=== PATIENT | female | born 1945 | race Caucasian/White ===

== ENCOUNTER 2016-05-04 19:38 | Inpatient (IN) | payer MEDICARE ==
[2016-05-04 21:45] LABS: Basophils # (A) 0.1 k/uL (0-0.2); Basophils % (A) 1 %; Eosinophils # (A) 0.3 k/uL (0-0.7); Eosinophils % (A) 2 %; HCT 34.1 % (34.0-46.0); HDW 2.63; HGB 11.6 gm/dL (11.4-16.0); Luc # (Auto) 0.33; Luc % (Auto) 2; Lymphocytes # (A) 3.1 k/uL (1.0-4.8); Lymphocytes % (A) 20 %; MCH 28.3 pg (25.0-35.0); Mean Platelet Volume 6.6; Monocytes % (A) 6 %; Neutrophils # (A) 11.1 k/uL (1.3-7.7); Neutrophils % (A) 70 %; RDW 13.8 % (11.5-15.5); WBC 15.8 k/uL (3.8-10.6); WBC (Perox) 15.88
[2016-05-04 21:49] LABS: MCV 83.2 fL (80.0-100.0)
[2016-05-04 21:57] LABS: Calcium 9.4 mg/dL (8.4-10.2); Potassium 4.5 mmol/L (3.5-5.1); Total Bilirubin 0.5 mg/dL (0.2-1.3); Total Protein 6.9 g/dL (6.3-8.2)
[2016-05-04] MEDS ORDERED: SODIUM CHLORIDE 0.9% 1,000 ML IV STA (22:16)
--- NOTE | 2016-05-04 22:41 | CT ---
EXAMINATION TYPE: CT brain mason wo con DATE OF EXAM: 05/04/2016 10:19 PM COMPARISON: CT brain March 24, 2016. HISTORY: fall , history of unsteady gait and balance. CT DLP: 1702.50 mGycm Automated exposure control for dose reduction was used. TECHNIQUE: CT scan of the head and cervical spine are performed without contrast. FINDINGS: CT BRAIN: There is no acute intracranial hemorrhage, mass effect, or midline shift identified. The cortical sul ci are prominent with age-related atrophic changes of brain. Ventricles are grossly normal in size. M ild periventricular white matter ischemic changes are noted bilaterally of chronic nature. The globes are intact and the visualized sinuses are clear. No definite depressed skull fracture or significant cephalohematoma is noted. Tiny calcification or b one density in the inner table area of right temporal bone in the axial image 20 is most likely a yoly ign bone projection and is stable since previous study. CT CERVICAL SPINE: Cervical spine is visualized in its entirety from C1 through upper thoracic levels and demonstrates s atisfactory alignment without evidence of acute fracture or dislocation. Prevertebral soft tissue ap pears within normal limits. The C1-C2 articulation is unremarkable. Mild degenerative arthritic keily nges are present with endplate spondylosis in the lower cervical spine especially at the level of C5- C6 and C6-C7. IMPRESSION: 1. No acute process in the brain. 2. Age-related atrophic changes of brain. 3. No definite acute fracture in the cervical spine. 4. Mild degenerative arthritic changes in the cervical spine.
--- NOTE | 2016-05-04 22:45 | CT ---
EXAMINATION TYPE: CT thoracic spine wo con DATE OF EXAM: 05/04/2016 10:22 PM COMPARISON: NONE HISTORY: fall CT DLP: 2416.10 mGycm Automated exposure control for dose reduction was used. FINDINGS: There is minor dextroscoliosis in the thoracic spine. There is increased thoracic kyphosis. The alignment of vertebral bodies and body heights are grossly normal. No definite acute fracture is noted in the thoracic spine. Multilevel degenerative changes are present in the thoracic spine with m ild endplate spondylosis. Paraspinal soft tissues appear unremarkable. Dependent atelectasis is noted in both lungs. IMPRESSION: NO DEFINITE ACUTE FRACTURE IS NOTED IN THE THORACIC SPINE. If clinical symptoms persist MRI scan may be helpful.
[2016-05-04] MEDS: MAGNESIUM SULFATE-D5W PMX 1 GM in DEXTROSE/WATER 1 100ML.BAG IVPB SCH ×2 (22:47→23:48)
[2016-05-04] MEDS ORDERED: cloNIDine HCL 0.1 MG TAB PO STA (23:25)
[2016-05-05] MEDS ORDERED: NALOXONE 0.4 MG/ML 1 ML VIAL IV PRN (00:09)
--- NOTE | 2016-05-05 00:09 | ED ---
General Adult HPI - General Chief complaint: Urogenital Stated complaint: unable to urinate Time Seen by Provider: 05/04/16 21:15 Source: patient Mode of arrival: wheelchair Limitations: no limitations - History of Present Illness Initial comments: The patient is a 70-year-old female who presents to the ED with a chief complaint of decreased urination. The patient states that these symptoms have been present over the course of the past 2-3 days. The patient states that she has a history of chronic dysphagia. Reviewing the patient's chart, it appears that the patient has a history of Zenker diverticulum. Patient notes that she' s been trying her best to maintain her diet but states that it often hard due to her chronic dysphagia. Patient states that she's largely on a liquid diet. The patient notes that she has been hospitalized multiple times in the past secondary to hyponatremia. Patient does note that she fell about 3 days ago, landing on the floor. Patient notes that she's had some pain in her upper thoracic spine following this fall. Patient denies any dizziness or lightheadedness. Patient denies any history of seizure. Patient's family states that the patient has been normal. The patient denies any fever or chills. Patient denies any nausea or vomiting. Patient denies any abdominal pain. - Related Data Home Medications Medication Instructions Recorded Confirmed Atenolol [Tenormin] 50 mg PO TID 03/11/16 05/04/16 Glimepiride [Amaryl] 0.5 mg PO BID@0800,1800 03/11/16 05/04/16 Lisinopril-Hctz 20-25 mg 1 tab PO DAILY@1800 03/11/16 05/04/16 [Zestoretic 20-25] Pioglitazone [Actos] 30 mg PO DAILY@0900 03/11/16 05/04/16 metFORMIN HCL [Glucophage] 1,000 mg PO BID@1000,1800 03/11/16 05/04/16 Previous Rx's Medication Instructions Recorded ALPRAZolam [Xanax] 0.25 mg PO TID PRN #0 tab 03/28/16 Insulin Glargine,Hum.rec.anlog 15 unit SQ HS #0 03/28/16 [Lantus Solostar] Loratadine [Claritin] 10 mg PO DAILY tab 03/28/16 Metoclopramide [Reglan] 10 mg PO AC-TID #30 tab 03/28/16 Pantoprazole [Protonix] 40 mg PO AC-BRKFST #30 tablet. 03/28/16 cloNIDine HCL [Catapres] 0.2 mg PO HS tab 03/28/16 Loperamide HCl [Imodium A-D] 4 mg PO QID PRN #30 tablet 04/01/16 Allergies Allergy/AdvReac Type Severity Reaction Status Date / Time cephalexin Allergy Unknown Verified 05/04/16 20:15 ciprofloxacin [From Cipro] Allergy Anaphylaxis Verified 05/04/16 20:15 difluprednate [From Durezol] Allergy Anaphylaxis Verified 05/04/16 20:15 dog dander Allergy Unknown Verified 05/04/16 20:15 doxycycline [From Vibramycin] Allergy Unknown Verified 05/04/16 20:15 epinephrine Allergy Unknown Verified 05/04/16 20:15 erythromycin base Allergy Unknown Verified 05/04/16 20:15 Fish Containing Products Allergy Swelling Verified 05/04/16 20:15 latex Allergy Anaphylaxis Verified 05/04/16 20:15 metronidazole [From Flagyl] Allergy Anaphylaxis Verified 05/04/16 20:15 mold Allergy Unknown Verified 05/04/16 20:15 ofloxacin [From Floxin] Allergy Anaphylaxis Verified 05/04/16 20:15 Penicillins Allergy Unknown Verified 05/04/16 20:15 shellfish derived [Shellfish] Allergy Unknown Verified 05/04/16 20:15 strawberry Allergy Burning & Verified 05/04/16 20:15 swelling tomato Allergy Burning & Verified 05/04/16 20:15 swelling dust Allergy Unknown Uncoded 05/04/16 20:15 Review of Systems ROS Statement: Those systems with pertinent positive or pertinent negative responses have been documented in the HPI. ROS Other: All systems not noted in ROS Statement are negative. Constitutional: Reports: weakness. Denies: fever, chills Eyes: Denies: eye pain ENT: Denies: ear pain, throat pain Respiratory: Denies: cough, dyspnea, wheezes, hemoptysis, stridor Cardiovascular: Denies: chest pain, palpitations Endocrine: Reports: fatigue Gastrointestinal: Reports: nausea. Denies: abdominal pain, vomiting Genitourinary: Reports: other (decreased urination). Denies: urgency, dysuria, frequency Skin: Denies: rash, lesions Neurological: Denies: headache, weakness Psychiatric: Denies: anxiety, depression Past Medical History Past Medical History: Asthma, Diabetes Mellitus, GERD/Reflux, Hyperlipidemia, Hypertension, Syncope Additional Past Medical History / Comment(s): Zenker's diverticulum, hemrroids History of Any Multi-Drug Resistant Organisms: None Reported Past Surgical History: Cholecystectomy, Hysterectomy, Orthopedic Surgery, Tonsillectomy, Tubal Ligation Additional Past Surgical History / Comment(s): right knee Past Anesthesia/Blood Transfusion Reactions: No Reported Reaction Past Psychological History: Anxiety Smoking Status: Never smoker Past Alcohol Use History: None Reported Past Drug Use History: None Reported - Past Family History Mother Family Medical History: Cancer, Congestive Heart Failure (CHF) Additional Family Medical History / Comment(s): passed from CA of lung w/mets to spine & brain Father Family Medical History: Cancer, Hypertension Additional Family Medical History / Comment(s): passed from prostate CA General Exam Limitations: no limitations General appearance: alert, in no apparent distress Head exam: Present: atraumatic, normocephalic Eye exam: Present: normal appearance, PERRL, EOMI, other (the patient wears glasses) Pupils: Present: normal accommodation ENT exam: Present: normal exam, mucous membranes dry Neck exam: Present: normal inspection. Absent: tenderness Respiratory exam: Present: normal lung sounds bilaterally. Absent: respiratory distress, wheezes, rales, rhonchi, stridor Cardiovascular Exam: Present: regular rate, normal rhythm GI/Abdominal exam: Present: soft. Absent: distended, tenderness, guarding, rebound Extremities exam: Present: normal inspection, full ROM Back exam: Present: normal inspection, tenderness (pain noted in the thoracic region of the back. No tenderness to palaption over the spinous processes of the thoracic or cervical region), paraspinal tenderness. Absent: vertebral tenderness Neurological exam: Present: alert, oriented X3, CN II-XII intact Psychiatric exam: Present: normal affect, normal mood Skin exam: Present: warm, dry, intact Course Vital Signs 05/04/16 05/04/16 05/04/16 20:13 22:50 23:50 Temperature 97.9 F Pulse Rate 84 62 87 Respiratory 20 18 18 Rate Blood Pressure 174/111 159/70 137/64 O2 Sat by Pulse 98 97 97 Oximetry Medical Decision Making - Medical Decision Making The patient is a 70-year-old female who presents to ED with a chief complaint of decreased urine output. Patient states the symptoms of the present over the course the past 2-3 days. Patient has a known history of chronic dysphagia. Patient has been hospitalized multiple times in the past secondary to hyponatremia. This hyponatremia was thought to be secondary to the fact that the patient has been unable to maintain her by mouth intake. Review the patient 's medications, and also appears that she is on chronic lisinopril- hydrochlorothiazide. Patient denies any fevers or chills. Patient denies any dysuria or urinary frequency. Patient denies any recent changes in medications. She does note that she fell approximately 3 days ago. The patient has been complaining of pain in the upper thoracic region since the fall. There is no tenderness along the spinous processes of the thoracic region. However, there is tenderness in the paraspinal region. Check CT head, cervical spine, thoracic spine. Check CBC, BMP, mag. Check UA and urine culture. Bladder scan patient. 11:48 PM Updated patient of overall findings including evidence of sodium of 113. Suspected patient is suffering from acute on chronic hyponatremia. Unknown etiology overall, though in the past patient has had hyponatremia secondary to dehydration. Will start patient on IV fluids at 100 mL per hour. Patient also noted to have low magnesium. Will supplement this the IV as well. Updated patient regarding no evidence of any acute traumatic injury to the thoracic or cervical spine. Patient updated that CT head was noted to be normal as well. I spoke with the Admitting Physician for the patient, who requested that Nephrology be placed on consult. I also spoke with Dr. Urena from Pulmonology/ Critical Care. Patient has evidence of hyponatremia but no evidence of any seizures or altered mental status. - Lab Data Result diagrams: 05/04/16 21:26 05/04/16 21:26 Lab Results 05/04/16 05/04/16 05/04/16 Range/Units : 21: 21: WBC 15.8 H (3.8-10.6) k/uL RBC 4.10 (3.80-5.40) m/uL Hgb 11.6 (11.4-16.0) gm/dL Hct 34.1 (34.0-46.0) % MCV 83.2 D (80.0-100.0) fL MCH 28.3 (25.0-35.0) pg MCHC 34.0 (31.0-37.0) g/dL RDW 13.8 (11.5-15.5) % Plt Count 409 (150-450) k/uL Neutrophils % 70 % Lymphocytes % 20 % Monocytes % 6 % Eosinophils % 2 % Basophils % 1 % Neutrophils # 11.1 H (1.3-7.7) k/uL Lymphocytes # 3.1 (1.0-4.8) k/uL Monocytes # 1.0 (0-1.0) k/uL Eosinophils # 0.3 (0-0.7) k/uL Basophils # 0.1 (0-0.2) k/uL Sodium 113 L* (137-145) mmol/L Potassium 4.5 (3.5-5.1) mmol/L Chloride 77 L* (98-107) mmol/L Carbon Dioxide 23 (22-30) mmol/L Anion Gap 13 mmol/L BUN 30 H (7-17) mg/dL Creatinine 1.79 H (0.52-1.04) mg/dL Est GFR (MDRD) Af Amer 34 (>60 ml/min/1.73 sqM) Est GFR (MDRD) Non-Af 28 (>60 ml/min/1.73 sqM) Glucose 163 H (74-99) mg/dL Osmolality (280-301) mosm/kg Calcium 9.4 (8.4-10.2) mg/dL Magnesium 1.0 L* (1.6-2.3) mg/dL Total Bilirubin 0.5 (0.2-1.3) mg/dL AST 26 (14-36) U/L ALT 46 (9-52) U/L Alkaline Phosphatase 110 (38-126) U/L Total Protein 6.9 (6.3-8.2) g/dL Albumin 4.0 (3.5-5.0) g/dL 05/04/16 Range/Units 21:26 WBC (3.8-10.6) k/uL RBC (3.80-5.40) m/uL Hgb (11.4-16.0) gm/dL Hct (34.0-46.0) % MCV (80.0-100.0) fL MCH (25.0-35.0) pg MCHC (31.0-37.0) g/dL RDW (11.5-15.5) % Plt Count (150-450) k/uL Neutrophils % % Lymphocytes % % Monocytes % % Eosinophils % % Basophils % % Neutrophils # (1.3-7.7) k/uL Lymphocytes # (1.0-4.8) k/uL Monocytes # (0-1.0) k/uL Eosinophils # (0-0.7) k/uL Basophils # (0-0.2) k/uL Sodium (137-145) mmol/L Potassium (3.5-5.1) mmol/L Chloride (98-107) mmol/L Carbon Dioxide (22-30) mmol/L Anion Gap mmol/L BUN (7-17) mg/dL Creatinine (0.52-1.04) mg/dL Est GFR (MDRD) Af Amer (>60 ml/min/1.73 sqM) Est GFR (MDRD) Non-Af (>60 ml/min/1.73 sqM) Glucose (74-99) mg/dL Osmolality 248 L* (280-301) mosm/kg Calcium (8.4-10.2) mg/dL Magnesium (1.6-2.3) mg/dL Total Bilirubin (0.2-1.3) mg/dL AST (14-36) U/L ALT (9-52) U/L Alkaline Phosphatase (38-126) U/L Total Protein (6.3-8.2) g/dL Albumin (3.5-5.0) g/dL Disposition Clinical Impression: Hyponatremia, Hypomagnesemia, Dysphagia, Zenker's hypopharyngeal diverticulum Disposition: ADMITTED IP TO THIS [facility] Condition: Stable Referrals: Ortiz Renee MD [Primary Care Provider] - 1-2 days Time of Disposition: 00:10 Decision to Admit Reason: Admit from EC Decision Date: 05/05/16 Decision Time: 00:09
[2016-05-05 02:19] LABS: Appearance,Urine Clear (Clear); Bilirubin,Urine Negative (Negative); Glucose,Urine (UA) 1+ (Negative); Ketones,Urine Negative (Negative); Leukocyte Esterase,Urine Negative (Negative); Nitrite,Urine Negative (Negative); Protein,Urine Negative (Negative); Specific Gravity,Urine 1.003 (1.001-1.035); UA Billing (MACRO vs. MICRO) CHEM; Urobilinogen,Urine <2.0 mg/dL (<2.0)
[2016-05-05 02:26] LABS: Potassium,Urine Random 9.5 mmol/L
[2016-05-05 02:29] LABS: Creatinine,Urine Random 33.8 mg/dL
[2016-05-05 02:54] LABS: Calcium 9.1 mg/dL (8.4-10.2); Potassium 4.5 mmol/L (3.5-5.1)
[2016-05-05] MEDS: ONDANSETRON 4 MG/2 ML VIAL IVP PRN ×2 (03:06→11:42)
[2016-05-05] MEDS: SODIUM CHLORIDE 0.9% 1,000 ML IV SCH ×3 (03:51→21:24)
[2016-05-05 06:07] LABS: Calcium 8.9 mg/dL (8.4-10.2); Potassium 4.2 mmol/L (3.5-5.1); Total Bilirubin 0.5 mg/dL (0.2-1.3); Total Protein 5.9 g/dL (6.3-8.2)
--- NOTE | 2016-05-05 09:34 | P.NPCON ---
History of Present Illness - Reason for Consult Consult date: 05/05/16 hyponatremia - Chief Complaint decreased UOP - History of Present Illness Presents with decreased UOP. Found to have sodium 113. SHe is on lisinpril/ HCTZ. She is on largely a fluid liquid diet due to Zenkers Diverticulum resulting in chronic dysphagia. She says she has h/o hyponatremia last month, But her HCTZ was never stopped. she has chronic diarrhea 2-3 BM a day. No vomiting. I startd her on 0.9NS and sodium has improved to 116. She is alert x 3. She hase baseline creatinine 0.9 but is up to 1.7 Review of Systems All systems: negative Constitutional: Reports as per HPI Past Medical History Past Medical History: Asthma, Diabetes Mellitus, GERD/Reflux, Hyperlipidemia, Hypertension, Syncope Additional Past Medical History / Comment(s): Zenker's diverticulum, hemrroids History of Any Multi-Drug Resistant Organisms: None Reported Past Surgical History: Cholecystectomy, Hysterectomy, Orthopedic Surgery, Tonsillectomy, Tubal Ligation Additional Past Surgical History / Comment(s): right knee Past Anesthesia/Blood Transfusion Reactions: No Reported Reaction Past Psychological History: Anxiety Smoking Status: Never smoker Past Alcohol Use History: None Reported Past Drug Use History: None Reported - Past Family History Mother Family Medical History: Cancer, Congestive Heart Failure (CHF) Additional Family Medical History / Comment(s): passed from CA of lung w/mets to spine & brain Father Family Medical History: Cancer, Hypertension Additional Family Medical History / Comment(s): passed from prostate CA Medications and Allergies Home Medications Medication Instructions Recorded Confirmed Type Atenolol [Tenormin] 50 mg PO TID 03/11/16 05/04/16 History Glimepiride [Amaryl] 0.5 mg PO BID@0800,1800 03/11/16 05/04/16 History Lisinopril-Hctz 20-25 mg 1 tab PO DAILY@1800 03/11/16 05/04/16 History [Zestoretic 20-25] Pioglitazone [Actos] 30 mg PO DAILY@0900 03/11/16 05/04/16 History metFORMIN HCL [Glucophage] 1,000 mg PO BID@1000,1800 03/11/16 05/04/16 History Allergies Allergy/AdvReac Type Severity Reaction Status Date / Time cephalexin Allergy Unknown Verified 05/04/16 20:15 ciprofloxacin [From Cipro] Allergy Anaphylaxis Verified 05/04/16 20:15 difluprednate [From Durezol] Allergy Anaphylaxis Verified 05/04/16 20:15 dog dander Allergy Unknown Verified 05/04/16 20:15 doxycycline [From Vibramycin] Allergy Unknown Verified 05/04/16 20:15 epinephrine Allergy Unknown Verified 05/04/16 20:15 erythromycin base Allergy Unknown Verified 05/04/16 20:15 Fish Containing Products Allergy Swelling Verified 05/04/16 20:15 latex Allergy Anaphylaxis Verified 05/04/16 20:15 metronidazole [From Flagyl] Allergy Anaphylaxis Verified 05/04/16 20:15 mold Allergy Unknown Verified 05/04/16 20:15 ofloxacin [From Floxin] Allergy Anaphylaxis Verified 05/04/16 20:15 Penicillins Allergy Unknown Verified 05/04/16 20:15 shellfish derived [Shellfish] Allergy Unknown Verified 05/04/16 20:15 strawberry Allergy Burning & Verified 05/04/16 20:15 swelling tomato Allergy Burning & Verified 05/04/16 20:15 swelling dust Allergy Unknown Uncoded 05/04/16 20:15 Physical Exam Vitals: Vital Signs Temp Pulse Resp BP Pulse Ox 05/05/16 07:20 61 18 114/56 97 05/05/16 05:19 54 L 18 121/57 97 05/05/16 04:19 60 18 146/65 96 05/05/16 03:19 98.1 F 54 L 20 134/63 96 05/05/16 02:19 54 L 18 134/63 96 05/05/16 01:55 54 L 18 129/62 96 05/05/16 00:55 58 L 18 120/57 96 Intake and Output 05/04/16 05/05/16 05/05/16 22:59 06:59 14:59 Output Total 600 Balance -600 Output: Urine 600 - Constitutional General appearance: cooperative, no acute distress - Respiratory Respiratory: bilateral: CTA - Cardiovascular Rhythm: regular Heart sounds: normal: S1, S2 leg Peripheral Edema: bilateral: None - Gastrointestinal General gastrointestinal: soft Results - Lab Results Most recent lab results Calcium 8.9 mg/dL (8.4-10.2) 05/05/16 05:40 Magnesium 1.0 mg/dL (1.6-2.3) L* 05/04/16 21:26 05/04/16 21:26 05/05/16 05:40 Assessment and Plan Plan: 1. Severe asymptomatic Hyponatremia due to HCTZ and high fluid intake --Previous h/o hyponatremia last month but HCTZ was continued. 2 nonoliguric SHELIA due to volume depletion. 3. Chronic Dysphagia due to zenker diverticulum. Recommendations 1. Continue 0.9NS at 125ml/hr. 2. Hold HCTZ. 3. Lytes q 4 hours. 4. Fluid restriction 1000ml/day.
[2016-05-05] MEDS ORDERED: LOPERAMIDE 2 MG CAP PO PRN (09:39)
[2016-05-05 09:40] LABS: Calcium 9.4 mg/dL (8.4-10.2); Potassium 4.4 mmol/L (3.5-5.1); Total Bilirubin 0.6 mg/dL (0.2-1.3); Total Protein 6.6 g/dL (6.3-8.2)
[2016-05-05] MEDS ORDERED: ATENOLOL 50 MG TAB PO SCH (09:45)
[2016-05-05] MEDS ORDERED: FUROSEMIDE 10 MG/ML 2 ML VIAL IV ONE (10:02)
[2016-05-05 11:15] LABS: Glucose,Whole Blood 348 mg/dL (75-99)
[2016-05-05 11:16] VITALS: BMI 41.2
[2016-05-05] MEDS: metFORMIN 500 MG TAB PO SCH ×2 (11:42→17:03)
[2016-05-05] MEDS: INSULIN LISPRO (humaLOG) 300 UNIT/3 ML VIAL SQ SCH ×3 (11:43→21:25)
[2016-05-05 12:39] LABS: Glucose,Whole Blood 311 mg/dL (75-99)
[2016-05-05] MEDS: ALPRAZolam 0.25 MG TAB PO PRN ×2 (14:03→21:25)
[2016-05-05 15:07] LABS: Glucose,Whole Blood 156 mg/dL (75-99)
[2016-05-05] MEDS ORDERED: NYSTATIN 100,000 UNIT/GM POWD 15 GM TOPICAL SCH (16:00)
[2016-05-05 16:39] LABS: Glucose,Whole Blood 166 mg/dL (75-99)
[2016-05-05] MEDS: INSULIN GLARGINE 100 UNIT/ML 10 ML VIAL SQ SCH (21:24)
[2016-05-05] MEDS: cloNIDine HCL 0.2 MG TAB PO SCH (21:24)
[2016-05-05 21:46] LABS: Glucose,Whole Blood 204 mg/dL (75-99)
[2016-05-06] MEDS: SODIUM CHLORIDE 0.9% 1,000 ML IV SCH ×3 (04:10→13:38)
[2016-05-06 05:19] LABS: Glucose,Whole Blood 103 mg/dL (75-99)
[2016-05-06 07:10] LABS: Glucose,Whole Blood 138 mg/dL (75-99)
[2016-05-06] MEDS: INSULIN LISPRO (humaLOG) 300 UNIT/3 ML VIAL SQ SCH ×4 (08:55→21:09)
[2016-05-06] MEDS: PANTOPRAZOLE 40 MG TABLET PO SCH (08:56)
[2016-05-06] MEDS: metFORMIN 500 MG TAB PO SCH ×2 (08:57→17:19)
[2016-05-06] MEDS: LORATADINE 10 MG TAB PO SCH (08:57)
[2016-05-06] MEDS: ATENOLOL 50 MG TAB PO SCH (08:57)
[2016-05-06] MEDS: ALPRAZolam 0.25 MG TAB PO PRN ×2 (08:58→21:09)
--- NOTE | 2016-05-06 09:36 | HP ---
DATE OF ADMISSION: 05/05/2016 CHIEF COMPLAINT: Weakness. HISTORY OF PRESENT ILLNESS: This 70-year-old female who came to the emergency room because she was feeling weak. She had fallen 2 days ago. She had no loss of consciousness. She does felt weak. She is noted to have a sodium 113 in the emergency room. The patient has been for the past about 6 weeks having issues with swallowing. She has had an EGD done, Barium swallow done. The patient feels the food kind of sticks in her throat area. She has got a small Zenker's diverticulum. She has seen the thoracic surgeons and who do not feel that the patient really needs the surgery. The patient has been drinking an increased amount of fluid. She has been at the previous hospitalization recommended to take her medications and discontinue the hydrochlorothiazide from the lisinopril. Patient apparently is back on the same medication. She denies any other symptoms. Review of patient's symptoms denies headaches, dizziness, any muscle cramps, seizures. The patient following admission has been given some IV fluids in her sodium is back to 119 this morning. Patient has been seen by nephrology. Past medical history is significant for hypertension and diabetes mellitus. The patient has poor compliance to diabetes. She also has a history of chronic anxiety. 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 Past surgical history is negative for any major surgeries. PERSONAL HISTORY: Nonsmoker. No alcohol. ALLERGIES: Multiple including KEFLEX, CIPRO, DOXYCYCLINE, EPINEPHRINE, ERYTHROMYCIN ( ), METRONIDAZOLE, MOLD, PENICILLIN, SHELLFISH, DUST. Medications at present include: Amaryl 0.5 mg b.i.d. , Metformin 1000 mg b.i.d., Clonidine 0.2 mg at bedtime. Actos 30 mg daily. Protonix 40 mg daily. Claritin 10 mg daily. Imodium AD p.r.n. Lisinopril, hydrochlorothiazide 25 b.i.d. Lantus 15 units daily, atenolol 50 mg daily. Xanax 0.25 mg t.i.d. p.r.n. SOCIAL HISTORY: Patient is and lives with her spouse. 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 FAMILY MEDICAL HISTORY: Father committed suicide. Mother had COPD, possible malignancy. Has a daughter with history of hypertension. REVIEW OF SYSTEMS: NEURO: Denies any headaches, dizziness. No double vision, blurred vision. No symptoms of TIA, syncope, seizures. PSYCH: Chronic anxiety. CARDIAC: No chest pain, angina, palpitation. RESPIRATORY: No shortness of breath, cough, hemoptysis. GI: No nausea, vomiting, complains of some dysphagia. Has been eating full liquids and clear liquids. Frequent diarrhea. : No symptoms of dysuria, hematuria, urgency, frequency. EXTREMITIES: The patient has pain. Has some edema. CONSTITUTIONAL: No fever or chills. PHYSICAL EXAMINATION: Elderly female, at present in no distress. VITAL SIGNS: The patient is afebrile. Temperature 98.1, pulse 61, respirations 18, blood pressure 114/56, pulse ox 97% on room air. HEENT: Normocephalic. NECK: No JVD. Pupils reactive. Conjunctivae pink sclerae nonicteric. Nostrils clear. Oral cavity is moist. Ears reveal no drainage. Neck reveals no JVD, carotid bruits, or thyromegaly. Chest is clear to auscultation and percussion. CARDIAC: Normal S1, S2 with no gallops. ABDOMEN: Soft, no palpable masses. Bowel sounds normal. No organomegaly. Extremities reveal edema. NEUROLOGICAL: Awake, alert, oriented x3 with well-coordinated movements. Laboratory assessment was a sodium of 113, potassium 4.5, chloride 77, CO2 23, BUN 30, creatinine 1.79 glucose 163, magnesium was 1.0, albumin 4.0. Thyroid is normal. Urine specific gravity was 1.003 1+ glucose. Urine osmality was 179, Urine sodium was 30. CBC revealed elevated white count 15,800. Hemoglobin is normal and 11.6. Platelets normal 409. CT scan of the brain unremarkable. EKG is within normal range. ASSESSMENT: 1. Hyponatremia secondary to increased water intake and use of Dyazide. 2. Issues with dysphagia. 3. Diabetes mellitus. 4. Hypertension. 5. Hypomagnesemia 6. Acute renal failure. PLAN: Continue with IV hydration, one dose of Lasix. The patient's sodium is improving. The patient's general condition is discussed with the patient, prognosis remains guarded. The patient's condition discussed with the patient's spouse and daughter.
[2016-05-06 10:12] LABS: Basophils # (A) 0.1 k/uL (0-0.2); Basophils % (A) 1 %; CH 28.7; CHCM 33.5; Eosinophils # (A) 0.1 k/uL (0-0.7); Eosinophils % (A) 1 %; HCT 34.4 % (34.0-46.0); HGB 11.1 gm/dL (11.4-16.0); Luc # (Auto) 0.22; Luc % (Auto) 2; Lymphocytes # (A) 1.7 k/uL (1.0-4.8); Lymphocytes % (A) 15 %; MCH 27.7 pg (25.0-35.0); MCHC 32.2 g/dL (31.0-37.0); Mean Platelet Volume 6.2; Monocytes # (A) 0.7 k/uL (0-1.0); Monocytes % (A) 6 %; Neutrophils # (A) 8.5 k/uL (1.3-7.7); Neutrophils % (A) 76 %; RBC 3.99 m/uL (3.80-5.40); WBC 11.3 k/uL (3.8-10.6); WBC (Perox) 11.93
[2016-05-06 10:22] LABS: Prothrombin Time 10.2 sec (9.0-12.0)
[2016-05-06 10:27] LABS: Calcium 9.5 mg/dL (8.4-10.2); Magnesium 1.3 mg/dL (1.6-2.3); Phosphorous 3.3 mg/dL (2.5-4.5); Potassium 4.6 mmol/L (3.5-5.1)
--- NOTE | 2016-05-06 10:55 | P.PN ---
Subjective Patient is seen in follow-up for acute kidney injury and hyponatremia. Sodium level was low at 113 at the time of admission. She was having diarrhea and was also on a thiazide diuretic. Additionally she was on a clear liquid diet for Zenker's diverticulum. Sodium level has been gradually improving with IV hydration and is up to 128 this morning. Appetite is good. Denies any further diarrhea. No vomiting. Denies chest pain or shortness of breath. Vital signs are stable. General: The patient appeared well nourished and normally developed. HEENT: Head exam is unremarkable. Neck is without jugular venous distension. LUNGS: Lungs are clear to auscultation and percussion. Breath sounds decreased. HEART: Rate and Rhythm are regular. First and second heart sounds normal. No murmurs, rubs or gallops. ABDOMEN: Abdominal exam reveals normal bowel sounds. Non-tender and non- distended. No evidence of peritonitis. EXTREMITITES: No clubbing, cyanosis, or edema. Objective - Vital Signs Vital signs: Vital Signs Temp 96.4 F L 05/06/16 07:00 Pulse 69 05/06/16 07:00 Resp 18 05/06/16 07:00 BP 132/62 05/06/16 07:00 Pulse Ox 97 05/06/16 07:00 Intake & Output 05/05/16 05/06/16 05/06/16 18:59 06:59 18:59 Intake Total 100 Balance 100 Weight 112.491 kg Intake: Oral 100 Other: Voiding Method Toilet # Voids 1 - Labs CBC & Chem 7: 05/06/16 09:28 05/06/16 09:28 Labs: Abnormal Lab Results - Last 24 Hours (Table) 05/05/16 05/05/16 05/05/16 Range/Units 11:11 12:24 15:04 WBC (3.8-10.6) k/uL Hgb (11.4-16.0) gm/dL Neutrophils # (1.3-7.7) k/uL Sodium (137-145) mmol/L Chloride (98-107) mmol/L BUN (7-17) mg/dL Creatinine (0.52-1.04) mg/dL Glucose (74-99) mg/dL POC Glucose (mg/dL) 348 H 311 H 156 H (75-99) mg/dL Magnesium (1.6-2.3) mg/dL 05/05/16 05/05/16 05/06/16 Range/Units 16:38 21:09 05:16 WBC (3.8-10.6) k/uL Hgb (11.4-16.0) gm/dL Neutrophils # (1.3-7.7) k/uL Sodium (137-145) mmol/L Chloride (98-107) mmol/L BUN (7-17) mg/dL Creatinine (0.52-1.04) mg/dL Glucose (74-99) mg/dL POC Glucose (mg/dL) 166 H 204 H 103 H (75-99) mg/dL Magnesium (1.6-2.3) mg/dL 05/06/16 05/06/16 05/06/16 Range/Units 07:08 09:28 09:28 WBC 11.3 H (3.8-10.6) k/uL Hgb 11.1 L (11.4-16.0) gm/dL Neutrophils # 8.5 H (1.3-7.7) k/uL Sodium 128 L (137-145) mmol/L Chloride 90 L (98-107) mmol/L BUN 22 H (7-17) mg/dL Creatinine 1.22 H (0.52-1.04) mg/dL Glucose 243 H (74-99) mg/dL POC Glucose (mg/dL) 138 H (75-99) mg/dL Magnesium 1.3 L (1.6-2.3) mg/dL Microbiology - Last 24 Hours (Table) 05/05/16 02:10 Urine Culture - Preliminary Urine,Clean Catch Assessment and Plan Plan: Assessment: #1. Hypovolemic hyponatremia secondary to thiazide diuretics and diarrhea as well as excess water intake due to liquid diet. Improving. Sodium level up to 128 today. #2. Nonoliguric acute kidney injury mostly prerenal in nature secondary to diuretics and diarrhea. Improving. Creatinine on the 1.2 today. #3. Zenker's diverticulum. #4. Diabetes mellitus. Plan: Maintain normal saline to be run at 125 mL an hour. Maintain fluid restriction. Repeat electrolytes in the morning. Encourage oral intake.
[2016-05-06 12:34] LABS: Glucose,Whole Blood 145 mg/dL (75-99)
[2016-05-06] MEDS ORDERED: FUROSEMIDE 20 MG TAB PO STA (12:35)
[2016-05-06] MEDS: MAGNESIUM SULFATE-D5W PMX 1 GM in DEXTROSE/WATER 1 100ML.BAG IVPB SCH ×3 (13:30→17:19)
[2016-05-06 16:42] LABS: Glucose,Whole Blood 181 mg/dL (75-99)
[2016-05-06 20:53] LABS: Glucose,Whole Blood 197 mg/dL (75-99)
[2016-05-06] MEDS: cloNIDine HCL 0.2 MG TAB PO SCH (21:09)
[2016-05-06] MEDS: INSULIN GLARGINE 100 UNIT/ML 10 ML VIAL SQ SCH (21:10)
[2016-05-07] MEDS: SODIUM CHLORIDE 0.9% 1,000 ML IV SCH ×2 (01:02→15:24)
[2016-05-07 02:04] LABS: Glucose,Whole Blood 103 mg/dL (75-99)
--- NOTE | 2016-05-07 06:41 | PN ---
CHIEF COMPLAINT: Re-evaluation. HISTORY OF PRESENT ILLNESS: This lady was admitted to the hospital because of hyponatremia. The patient is actually doing much better. Sodium is up to 128. The patient does have some dysphagia problems and does drink plenty of fluids. Again, reviewed with the patient and spouse regarding fluid restrictions and fluid means. The patient otherwise has no other symptoms. REVIEW OF SYSTEMS: NEURO: Denies any headaches, dizziness. PSYCH: Chronic anxiety. CARDIAC: No chest pain, angina, palpitations. RESPIRATORY: No shortness of breath, cough, hemoptysis. GI: No nausea, vomiting, abdominal pain, diarrhea. Mild dysphagia. : No symptoms of dysuria, hematuria. EXTREMITIES: No pain. Does have some edema. CONSTITUTIONAL: No fever or chills. PHYSICAL EXAMINATION: Pleasant female in no distress. Vital signs revealed temperature 96.4, pulse 69, respirations 18, blood pressure 132/62, pulse ox 97% on room air. HEENT: Normocephalic. NECK: Supple. No JVD. Chest is clear to auscultation. CARDIAC: Normal S1, S2 with no gallops, murmurs. ABDOMEN: Soft. Bowel sounds normal. Extremities reveal edema. NEUROLOGICAL: Awake, alert, oriented with well coordinated movements. LABORATORY ASSESSMENT: Electrolytes which showed a sodium 128, chloride 90, BUN 22, creatinine 1.22. ASSESSMENT: 1. Hyponatremia improved. 2. Hypomagnesemia. 3. History of diabetes mellitus. 4. Nonoliguric acute kidney injury. PLAN: Patient is stable. Continue present medical regimen. Patient's condition is discussed with the patient. Prognosis guarded. Potential discharge home tomorrow.
[2016-05-07] MEDS: INSULIN LISPRO (humaLOG) 300 UNIT/3 ML VIAL SQ SCH ×2 (07:41→12:18)
[2016-05-07 07:53] LABS: Glucose,Whole Blood 130 mg/dL (75-99)
[2016-05-07 07:57] VITALS: RESP 16
[2016-05-07] MEDS: metFORMIN 500 MG TAB PO SCH (08:13)
[2016-05-07] MEDS: ATENOLOL 50 MG TAB PO SCH (08:14)
[2016-05-07] MEDS: LORATADINE 10 MG TAB PO SCH (08:14)
[2016-05-07] MEDS: PANTOPRAZOLE 40 MG TABLET PO SCH (08:14)
[2016-05-07 09:53] LABS: Anion Gap 12 mmol/L; Blood Urea Nitrogen 14 mg/dL (7-17); Calcium 9.6 mg/dL (8.4-10.2); Carbon Dioxide 29 mmol/L (22-30); Chloride 91 mmol/L (98-107); Glucose 192 mg/dL (74-99); Magnesium 1.5 mg/dL (1.6-2.3); Non-African American GFR(MDRD) >60 (>60 ml/min/1.73 sqM); Sodium 132 mmol/L (137-145)
--- NOTE | 2016-05-07 11:39 | P.PN ---
Subjective Patient is seen in follow-up for acute kidney injury and hyponatremia. Sodium level was low at 113 at the time of admission. She was having diarrhea and was also on a thiazide diuretic. Additionally she was on a clear liquid diet for Zenker's diverticulum. Sodium level has been gradually improving with IV hydration and is up to 132 this morning. Appetite is good. Denies any further diarrhea. No vomiting. Denies chest pain or shortness of breath. Vital signs are stable. General: The patient appeared well nourished and normally developed. HEENT: Head exam is unremarkable. Neck is without jugular venous distension. LUNGS: Lungs are clear to auscultation and percussion. Breath sounds decreased. HEART: Rate and Rhythm are regular. First and second heart sounds normal. No murmurs, rubs or gallops. ABDOMEN: Abdominal exam reveals normal bowel sounds. Non-tender and non- distended. No evidence of peritonitis. EXTREMITITES: No clubbing, cyanosis, or edema. Objective - Vital Signs Vital signs: Vital Signs Temp 96.5 F L 05/07/16 07:00 Pulse 73 05/07/16 07:00 Resp 16 05/07/16 07:00 BP 185/78 05/07/16 07:00 Pulse Ox 96 05/07/16 07:00 Intake & Output 05/06/16 05/07/16 05/07/16 18:59 06:59 18:59 Intake Total 400 200 Balance 400 200 Weight 112.491 kg Intake: Oral 400 200 Other: Voiding Method Toilet Toilet # Voids 3 2 1 # Bowel Movements 1 - Labs CBC & Chem 7: 05/06/16 09:28 05/07/16 08:43 Labs: Abnormal Lab Results - Last 24 Hours (Table) 05/06/16 05/06/16 05/06/16 Range/Units 12:32 16:34 20:51 Sodium (137-145) mmol/L Chloride (98-107) mmol/L Glucose (74-99) mg/dL POC Glucose (mg/dL) 145 H 181 H 197 H (75-99) mg/dL Magnesium (1.6-2.3) mg/dL 05/07/16 05/07/16 05/07/16 Range/Units 02:02 07:41 08:43 Sodium 132 L (137-145) mmol/L Chloride 91 L (98-107) mmol/L Glucose 192 H (74-99) mg/dL POC Glucose (mg/dL) 103 H 130 H (75-99) mg/dL Magnesium 1.5 L (1.6-2.3) mg/dL Microbiology - Last 24 Hours (Table) 05/05/16 02:10 Urine Culture - Final Urine,Clean Catch Assessment and Plan Plan: Assessment: #1. Hypovolemic hyponatremia secondary to thiazide diuretics and diarrhea as well as excess water intake due to liquid diet. Improving. Sodium level up to 132 today. #2. Nonoliguric acute kidney injury mostly prerenal in nature secondary to diuretics and diarrhea. Improving. Creatinine down to 0.88 today. #3. Zenker's diverticulum. #4. Diabetes mellitus. #5. Hypomagnesemia. Plan: Maintain normal saline to be run at 75 cc an hour. Maintain fluid restriction. Repeat electrolytes in the morning. Encourage oral intake. Replace magnesium. 2 g today. Stable to be discharged home from nephrology standpoint. Avoid thiazide diuretics.
[2016-05-07] MEDS: MAGNESIUM SULFATE-D5W PMX 1 GM in DEXTROSE/WATER 1 100ML.BAG IVPB SCH ×2 (12:00→14:10)
[2016-05-07 12:16] LABS: Glucose,Whole Blood 126 mg/dL (75-99)
[2016-05-07 14:38] VITALS: BP 146/75; PULSE 103; TEMP 96.7
[2016-05-07] MEDS ORDERED: INFLUENZA VACCINE (3YR+) 60 MCG/0.5 ML SYRINGE IM ONE (14:40)
[2016-05-07] MEDS ORDERED: PNEUMOCOCCAL VACC-PNEUMOVAX 23 25 MCG/0.5 ML VIAL IM ONE (14:40)
[2016-05-07] MEDS ORDERED: ATENOLOL 50 MG TAB PO SCH (17:00)
--- NOTE | 2016-05-19 11:50 | P.DS ---
Providers Date of admission: 05/05/16 00:09 History present illness and Hospital course: This 70-year-old female was admitted to the hospital after presenting with complaints of having fallen the day prior due to some generalized weakness. Patient in the emergency room was awake alert in no distress. A brain CT and neck CT were unremarkable for any trauma. Patient's blood work did show the patient had hypomagnesemia and hyponatremia. With a sodium of 113, chloride of 77, BUN of 30, grade 1.79,. Patient does have a history of diabetes. She has had a history of hypertension and has been on losartan with hydrochlorothiazide. The patient has had some issues with swallowing and may be due to a very small Zenker's diverticulum. The patient also has some associated anxiety and obsessive behavior. She has been drinking increased amount of water. The patient was also at the last time in the hospital with a sodium 125. The medication change had been recommended to just losartan however she is still on losartan with hydrochlorothiazide. The patient was seen by nephrology. With same recommendations of discontinuing hydrochlorothiazide and fluid restriction. Met with the patient, spouse and daughter and enforced these recommendations. Patient stable at the time of discharge. She actually had no symptoms relating to her hyponatremia. Patient' s sodium was improved. She does have a history of chronic diarrhea. Patient's general condition stable at the time of discharge. Final diagnosis to include: 1. Hyponatremia 2. Dehydration 3. Acute renal failure secondary to dehydration 4. Hypertension 5. Zenker's diverticulum 6. Obesity 7. Diabetes mellitus with fair control. 8. Hypomagnesemia 9. Chronic recurrent diarrhea Plan was the patient to switch over to losartan. We will recheck patient's electrolytes and magnesium on the outpatient if still hypomagnesemic may need to take oral supplements with the risk of aggravating her diarrhea. Patient to continue using Imodium as needed for diarrhea patient's condition discussed with patient prognosis is guarded she'll follow up for the surgeon regarding the Zenker's diverticulum. Attending physician: Ortiz Renee Consults: 05/05/16 00:19 Consult Physician Routine Consulting Provider: Amrit Mendez Consult Reason/Comments: Hyponatremia, SHELIA Do you want consulting provider notified?: Yes, Notify in am Primary care physician: Ortiz Renee Patient Condition at Discharge: Stable Plan - Discharge Summary New Discharge Prescriptions: Lisinopril [Prinivil] 20 mg PO DAILY #90 tablet Discharge Medication List Atenolol [Tenormin] 50 mg PO BID 03/11/16 [History] Glimepiride [Amaryl] 0.5 mg PO BID@0800,1800 03/11/16 [History] Pioglitazone [Actos] 30 mg PO DAILY@0900 03/11/16 [History] metFORMIN HCL [Glucophage] 1,000 mg PO BID@1000,1800 03/11/16 [History] ALPRAZolam [Xanax] 0.25 mg PO TID PRN #0 tab 03/28/16 [Rx] Loratadine [Claritin] 10 mg PO DAILY tab 03/28/16 [Rx] Metoclopramide [Reglan] 10 mg PO AC-TID #30 tab 03/28/16 [Rx] Pantoprazole [Protonix] 40 mg PO AC-BRKFST #30 tablet. 03/28/16 [Rx] cloNIDine HCL [Catapres] 0.2 mg PO HS tab 03/28/16 [Rx] Loperamide HCl [Imodium A-D] 4 mg PO QID PRN #30 tablet 04/01/16 [Rx] Insulin Glargine,Hum.rec.anlog [Lantus Solostar] See Protocol SQ HS 05/05/16 [ History] Insulin Glargine [Lantus] 15 unit SQ HS vial 05/07/16 [Rx] Lisinopril [Prinivil] 20 mg PO DAILY #90 tablet 05/07/16 [Rx] Follow up Appointment(s)/Referral(s): Ortiz Renee MD [Primary Care Provider] - 05/10/16 1:45 pm Patient Instructions/Handouts: Hyponatremia (DC), Type 2 Diabetes in Adults (DC ) Activity/Diet/Wound Care/Special Instructions: Soft bland diet. Diabetic folder given to pt. Discharge Disposition: HOME SELF-CARE
== END 2016-05-07 15:43 | disposition home or self-care (01) | DRG 641 ==
LOC: EC 19:38 → 6ICU 05-05 00:09 → 6SEL 05-05 07:30 → 4MS4W 05-05 10:06
PROVIDERS: ADMIT Internal Medicine; ATTEND Internal Medicine
DX: E87.1 Hypo-osmolality and hyponatremia (principal); E86.1 Hypovolemia; N17.9 Acute kidney failure, unspecified; R13.10 Dysphagia, unspecified; E83.42 Hypomagnesemia; E11.9 Type 2 diabetes mellitus without complications; D72.829 Elevated white blood cell count, unspecified; I10 Essential (primary) hypertension; R19.7 Diarrhea, unspecified; K22.5 Diverticulum of esophagus, acquired; K22.70 Barrett's esophagus without dysplasia; F41.9 Anxiety disorder, unspecified; T50.2X5A Adverse effect of carbonic-anhydrase inhibitors, benzothiadiazides and other diuretics, initial encounter; R53.1 Weakness; K21.9 Gastro-esophageal reflux disease without esophagitis; J45.909 Unspecified asthma, uncomplicated; M54.6 Pain in thoracic spine; R11.0 Nausea; E78.5 Hyperlipidemia, unspecified; K64.9 Unspecified hemorrhoids; Z79.84 Long term (current) use of oral hypoglycemic drugs; Z79.4 Long term (current) use of insulin; Z79.899 Other long term (current) drug therapy; Z88.1 Allergy status to other antibiotic agents; Z80.1 Family history of malignant neoplasm of trachea, bronchus and lung; Z91.81 History of falling; Z82.5 Family history of asthma and other chronic lower respiratory diseases; Z82.49 Family history of ischemic heart disease and other diseases of the circulatory system; Z91.040 Latex allergy status; Z88.0 Allergy status to penicillin; Z91.013 Allergy to seafood; Z91.018 Allergy to other foods; Z91.048 Other nonmedicinal substance allergy status; Z90.49 Acquired absence of other specified parts of digestive tract; Z90.710 Acquired absence of both cervix and uterus; Z98.51 Tubal ligation status; Z80.42 Family history of malignant neoplasm of prostate; Z80.8 Family history of malignant neoplasm of other organs or systems; Z91.19 Patient's noncompliance with other medical treatment and regimen
CPT/HCPCS: 36415; 51798; 70450; 72125; 72128; 80048; 80053; 81003; 82570; 83735; 83930; 83935; 84100; 84133; 84300; 84443; 85025; 85610; 87086; 93005; 96361; 96365; 96366; 96375; 99284

== ENCOUNTER 2016-10-02 13:02 | Emergency (ER) | payer MEDICARE ==
[2016-10-02] MEDS ORDERED: LABETALOL 5 MG/ML VIAL MDV IVP STA (13:10)
[2016-10-02] MEDS ORDERED: SODIUM CHLORIDE 0.9% 500 ML IV ONE (13:10)
--- NOTE | 2016-10-02 13:15 | ED ---
General Adult HPI - General Stated complaint: syncope Time Seen by Provider: 10/02/16 13:02 Source: RN notes reviewed - History of Present Illness Initial comments: This is a 71-year-old female presents emergency Department with hypertension history and some kidney problem per the patient. Patient states today she was watching a movie started feeling dizzy got up and took her blood pressure was elevated and she continued to feel dizzy. Patient states she did not pass out but she felt dizzy but not like the room was spinning. Patient stated no time did she think that she would pass out. Patient denies any headache patient denies numbness weakness patient denies any slurred speech. Patient states she started to feel hot and her face and that is typically what happens when her blood pressure was elevated. Patient continued to feel dizzy so she sat down and called EMS. Patient denies any chest pain or palpitations. Patient denies any difficulty breathing shortest breath per patient denies any abdominal pain patient denies nausea vomiting diarrhea. Patient denies any recent injury or trauma. Patient states currently sitting in bed she feels fine except for a little bit flushed in the face - Related Data Home Medications Medication Instructions Recorded Confirmed Atenolol [Tenormin] 50 mg PO BID 03/11/16 10/02/16 Glimepiride [Amaryl] 0.5 mg PO PC-BID 03/11/16 10/02/16 Pioglitazone [Actos] 30 mg PO DAILY@0900 03/11/16 10/02/16 metFORMIN HCL [Glucophage] 1,000 mg PO PC-BID 03/11/16 10/02/16 Insulin Glargine,Hum.rec.anlog See Protocol SQ HS 05/05/16 10/02/16 [Lantus Solostar] ALPRAZolam [Xanax] 0.25 mg PO BID 10/02/16 10/02/16 Lisinopril [Prinivil] 20 mg PO DAILY@1600 10/02/16 10/02/16 Loratadine [Claritin] 10 mg PO DAILY@1200 10/02/16 10/02/16 Magnesium 400 mg PO DAILY@1200 10/02/16 10/02/16 Previous Rx's Medication Instructions Recorded Pantoprazole [Protonix] 40 mg PO KEL-BRKFST #30 tablet. 03/28/16 cloNIDine HCL [Catapres] 0.2 mg PO HS tab 03/28/16 Loperamide HCl [Imodium A-D] 4 mg PO QID PRN #30 tablet 04/01/16 Allergies Allergy/AdvReac Type Severity Reaction Status Date / Time cephalexin Allergy Unknown Verified 10/02/16 14:08 ciprofloxacin [From Cipro] Allergy Anaphylaxis Verified 10/02/16 14:08 codeine Allergy Chest Pain Verified 10/02/16 14:08 difluprednate [From Durezol] Allergy Anaphylaxis Verified 10/02/16 14:08 dog dander Allergy Unknown Verified 10/02/16 14:08 doxycycline [From Vibramycin] Allergy Unknown Verified 10/02/16 14:08 epinephrine Allergy Unknown Verified 10/02/16 14:08 erythromycin base Allergy Unknown Verified 10/02/16 14:08 Fish Containing Products Allergy Swelling Verified 10/02/16 14:08 latex Allergy Anaphylaxis Verified 10/02/16 14:08 metronidazole [From Flagyl] Allergy Anaphylaxis Verified 10/02/16 14:08 mold Allergy Unknown Verified 10/02/16 14:08 ofloxacin [From Floxin] Allergy Anaphylaxis Verified 10/02/16 14:08 Penicillins Allergy Unknown Verified 10/02/16 14:08 shellfish derived [Shellfish] Allergy Unknown Verified 10/02/16 14:08 strawberry Allergy Burning & Verified 10/02/16 14:08 swelling tomato AdvReac Mild Unknown Verified 10/02/16 14:08 Childhood dust Allergy Unknown Uncoded 10/02/16 13:12 Review of Systems ROS Statement: Those systems with pertinent positive or pertinent negative responses have been documented in the HPI. ROS Other: All systems not noted in ROS Statement are negative. Past Medical History Past Medical History: Asthma, Diabetes Mellitus, GERD/Reflux, Hyperlipidemia, Hypertension, Syncope Additional Past Medical History / Comment(s): Zenker's diverticulum, hemrroids History of Any Multi-Drug Resistant Organisms: None Reported Past Surgical History: Cholecystectomy, Hysterectomy, Orthopedic Surgery, Tonsillectomy, Tubal Ligation Additional Past Surgical History / Comment(s): right knee Past Anesthesia/Blood Transfusion Reactions: No Reported Reaction Past Psychological History: Anxiety Smoking Status: Never smoker Past Alcohol Use History: None Reported Past Drug Use History: None Reported - Past Family History Mother Family Medical History: Cancer, Congestive Heart Failure (CHF) Additional Family Medical History / Comment(s): passed from CA of lung w/mets to spine & brain Father Family Medical History: Cancer, Hypertension Additional Family Medical History / Comment(s): passed from prostate CA General Exam - General Exam Comments Initial Comments: GENERAL: Patient is well-developed and well-nourished. Patient is nontoxic and well- hydrated and is in no acute distress. ENT: Neck is soft and supple. No significant lymphadenopathy is noted. Oropharynx is clear. Moist mucous membranes. Neck has full range of motion without eliciting any pain. EYES: The sclera were anicteric and conjunctiva were pink and moist. Extraocular movements were intact and pupils were equal round and reactive to light. Eyelids were unremarkable. PULMONARY: Unlabored respirations. Good breath sounds bilaterally. No audible rales rhonchi or wheezing was noted. CARDIOVASCULAR: There is a regular rate and rhythm without any murmurs gallops or rubs. ABDOMEN: Soft and nontender with normal bowel sounds. No palpable organomegaly was noted. There is no palpable pulsatile mass. SKIN: Skin is clear with no lesions or rashes and otherwise unremarkable. NEUROLOGIC: Patient is alert and oriented x3. Cranial nerves II through XII are grossly intact. Motor and sensory are also intact. Normal speech, volume and content. Symmetrical smile. MUSCULOSKELETAL: Normal extremities with adequate strength and full range of motion. No lower extremity swelling or edema. No calf tenderness. LYMPHATICS: No significant lymphadenopathy is noted PSYCHIATRIC: Normal psychiatric evaluation. Normal interpersonal interactions appears functionally intact in deals appropriately with others. No signs of depression. No signs of anxiety. Course Vital Signs 10/02/16 10/02/16 10/02/16 13:03 13:20 13:35 Temperature 97.8 F 97.8 F Pulse Rate 89 71 68 Respiratory 18 16 16 Rate Blood Pressure 225/90 182/81 157/70 O2 Sat by Pulse 98 98 98 Oximetry 10/02/16 14:22 Temperature 98.7 F Pulse Rate 76 Respiratory 16 Rate Blood Pressure 187/90 O2 Sat by Pulse 98 Oximetry Medical Decision Making - Medical Decision Making EKG shows normal sinus rhythm at 71 bpm TX interval is 158 QRSs 84 QT interval 376 QTC is 408. Patient's EKG shows no ST segment elevation or depression or T wave abnormalities are noted. Patient's chest x-ray shows no acute abnormality. I spoke with Dr. Renee about the patient and he agreed that she can go home and follow-up with him patient. - Lab Data Result diagrams: 10/02/16 13:15 10/02/16 13:15 Lab Results 10/02/16 10/02/16 10/02/16 Range/Units 13:15 13:15 13:15 WBC 11.1 H (3.8-10.6) k/uL RBC 4.46 (3.80-5.40) m/uL Hgb 12.9 (11.4-16.0) gm/dL Hct 40.6 (34.0-46.0) % MCV 91.0 (80.0-100.0) fL MCH 28.8 (25.0-35.0) pg MCHC 31.7 (31.0-37.0) g/dL RDW 13.9 (11.5-15.5) % Plt Count 474 H (150-450) k/uL Neutrophils % 63 % Lymphocytes % 25 % Monocytes % 5 % Eosinophils % 4 % Basophils % 1 % Neutrophils # 7.0 (1.3-7.7) k/uL Lymphocytes # 2.7 (1.0-4.8) k/uL Monocytes # 0.6 (0-1.0) k/uL Eosinophils # 0.4 (0-0.7) k/uL Basophils # 0.1 (0-0.2) k/uL PT (9.0-12.0) sec INR (<1.1) APTT (22.0-30.0) sec Sodium 135 L (137-145) mmol/L Potassium 4.7 (3.5-5.1) mmol/L Chloride 96 L (98-107) mmol/L Carbon Dioxide 25 (22-30) mmol/L Anion Gap 14 mmol/L BUN 17 (7-17) mg/dL Creatinine 0.81 (0.52-1.04) mg/dL Est GFR (MDRD) Af Amer >60 (>60 ml/min/1.73 sqM) Est GFR (MDRD) Non-Af >60 (>60 ml/min/1.73 sqM) Glucose 242 H (74-99) mg/dL Calcium 9.9 (8.4-10.2) mg/dL Magnesium 1.4 L (1.6-2.3) mg/dL Total Bilirubin 0.5 (0.2-1.3) mg/dL AST 39 H (14-36) U/L ALT 46 (9-52) U/L Alkaline Phosphatase 235 H (38-126) U/L Total Creatine Kinase 23 L (30-135) U/L CK-MB (CK-2) 0.5 (0.0-2.4) ng/mL CK-MB (CK-2) Rel Index 2.2 Troponin I <0.012 (0.000-0.034) ng/mL NT-Pro-B Natriuret Pep pg/mL Total Protein 7.5 (6.3-8.2) g/dL Albumin 4.0 (3.5-5.0) g/dL 10/02/16 10/02/16 Range/Units 13:15 13:15 WBC (3.8-10.6) k/uL RBC (3.80-5.40) m/uL Hgb (11.4-16.0) gm/dL Hct (34.0-46.0) % MCV (80.0-100.0) fL MCH (25.0-35.0) pg MCHC (31.0-37.0) g/dL RDW (11.5-15.5) % Plt Count (150-450) k/uL Neutrophils % % Lymphocytes % % Monocytes % % Eosinophils % % Basophils % % Neutrophils # (1.3-7.7) k/uL Lymphocytes # (1.0-4.8) k/uL Monocytes # (0-1.0) k/uL Eosinophils # (0-0.7) k/uL Basophils # (0-0.2) k/uL PT 10.5 (9.0-12.0) sec INR 1.0 (<1.1) APTT 26.6 (22.0-30.0) sec Sodium (137-145) mmol/L Potassium (3.5-5.1) mmol/L Chloride (98-107) mmol/L Carbon Dioxide (22-30) mmol/L Anion Gap mmol/L BUN (7-17) mg/dL Creatinine (0.52-1.04) mg/dL Est GFR (MDRD) Af Amer (>60 ml/min/1.73 sqM) Est GFR (MDRD) Non-Af (>60 ml/min/1.73 sqM) Glucose (74-99) mg/dL Calcium (8.4-10.2) mg/dL Magnesium (1.6-2.3) mg/dL Total Bilirubin (0.2-1.3) mg/dL AST (14-36) U/L ALT (9-52) U/L Alkaline Phosphatase (38-126) U/L Total Creatine Kinase (30-135) U/L CK-MB (CK-2) (0.0-2.4) ng/mL CK-MB (CK-2) Rel Index Troponin I (0.000-0.034) ng/mL NT-Pro-B Natriuret Pep 126 pg/mL Total Protein (6.3-8.2) g/dL Albumin (3.5-5.0) g/dL Disposition Clinical Impression: Hypertension Disposition: HOME SELF-CARE Condition: Good Instructions: Hypertension (ED) Referrals: Ortiz Renee MD [Primary Care Provider] - 1-2 days Time of Disposition: 14:31
[2016-10-02 13:28] LABS: Basophils # (A) 0.1 k/uL (0-0.2); Basophils % (A) 1 %; CH 29.2; CHCM 32.3; Eosinophils # (A) 0.4 k/uL (0-0.7); Eosinophils % (A) 4 %; HCT 40.6 % (34.0-46.0); HDW 2.43; HGB 12.9 gm/dL (11.4-16.0); Luc # (Auto) 0.29; Luc % (Auto) 3; Lymphocytes # (A) 2.7 k/uL (1.0-4.8); Lymphocytes % (A) 25 %; MCH 28.8 pg (25.0-35.0); MCHC 31.7 g/dL (31.0-37.0); Mean Platelet Volume 6.8; Monocytes # (A) 0.6 k/uL (0-1.0); Monocytes % (A) 5 %; Neutrophils % (A) 63 %; RBC 4.46 m/uL (3.80-5.40); RDW 13.9 % (11.5-15.5); WBC 11.1 k/uL (3.8-10.6); WBC (Perox) 10.24
[2016-10-02 13:37] LABS: Partial Thromboplastin Time 26.6 sec (22.0-30.0); Prothrombin Time 10.5 sec (9.0-12.0)
[2016-10-02 13:39] LABS: ALT 46 U/L (9-52); AST 39 U/L (14-36); Alkaline Phosphatase 235 U/L (38-126); Anion Gap 14 mmol/L; Blood Urea Nitrogen 17 mg/dL (7-17); Calcium 9.9 mg/dL (8.4-10.2); Carbon Dioxide 25 mmol/L (22-30); Chloride 96 mmol/L (98-107); Glucose 242 mg/dL (74-99); Magnesium 1.4 mg/dL (1.6-2.3); Non-African American GFR(MDRD) >60 (>60 ml/min/1.73 sqM); Potassium 4.7 mmol/L (3.5-5.1); Sodium 135 mmol/L (137-145); Total Bilirubin 0.5 mg/dL (0.2-1.3); Total Protein 7.5 g/dL (6.3-8.2)
[2016-10-02 13:51] LABS: Creatine Kinase 23 U/L (30-135)
--- NOTE | 2016-10-02 13:56 | XR ---
EXAMINATION TYPE: XR chest 2V DATE OF EXAM: 10/02/2016 COMPARISON: Chest x-ray March 24, 2016. HISTORY: History of hypertension with chest pain. TECHNIQUE: Frontal and lateral views of the chest are obtained. FINDINGS: There is no focal air space opacity, pleural effusion, or pneumothorax seen. Underlying em physematous change is not excluded. The cardiac silhouette size is upper limits of normal currently. The osseous structures are intact. IMPRESSION: No acute cardiopulmonary process. No significant change from prior.
[2016-10-02 14:03] LABS: Creatine Kinase MB 0.5 ng/mL (0.0-2.4); Troponin I <0.012 ng/mL (0.000-0.034)
[2016-10-02 14:24] VITALS: TEMP 98.7
[2016-10-02] MEDS ORDERED: LORazepam 2 MG/ML SYRINGE IV STA (14:25)
[2016-10-02] MEDS ORDERED: hydrALAZINE HCL 20 MG/ML 1 ML VIAL IVP STA (14:29)
[2016-10-02 14:53] LABS: Glucose,Whole Blood 173 mg/dL (75-99)
[2016-10-02 15:23] VITALS: BP 145/55; PULSE 73; RESP 18
== END 2016-10-02 15:23 | disposition home or self-care (01) ==
LOC: EC 13:02
DX: I10 Essential (primary) hypertension (principal); E11.9 Type 2 diabetes mellitus without complications; F41.9 Anxiety disorder, unspecified; Z79.4 Long term (current) use of insulin; Z79.84 Long term (current) use of oral hypoglycemic drugs; Z79.899 Other long term (current) drug therapy; Z88.0 Allergy status to penicillin; Z88.1 Allergy status to other antibiotic agents; Z88.5 Allergy status to narcotic agent; Z88.8 Allergy status to other drugs, medicaments and biological substances; Z91.013 Allergy to seafood; Z91.018 Allergy to other foods; Z91.040 Latex allergy status; Z91.048 Other nonmedicinal substance allergy status; Z53.8 Procedure and treatment not carried out for other reasons
CPT/HCPCS: 36415; 93005; 83880; 80053; 82550; 82553; 83735; 84484; 85025; 85610; 85730; 71020; 99285; 96374; 96375; J2060; J0360

== ENCOUNTER 2016-11-05 06:03 | Day surgery (SDC) | payer MEDICARE ==
[2016-10-24 14:16] VITALS: BMI 38.2
[~2016-11-05 06:03] MED LIST: LACTATED RINGERS 1,000 ML IV SCH; LIDOCAINE 1% 20 ML VIAL (10MG/ML) FOR IV START INTRADERMA PRN
[2016-11-05] MEDS: PHENYLEPHRINE 10% OPHTH DROPS 5 ML BTL OP ONE ×3 (06:37→06:57)
[2016-11-05] MEDS: CYCLOPENTOLATE 1% OPHTH SOLN 2 ML BTL OP ONE ×3 (06:43→07:02)
[2016-11-05 06:51] LABS: Glucose,Whole Blood 164 mg/dL (75-99)
[2016-11-05 06:54] VITALS: RESP 16; TEMP 97.6
[2016-11-05] MEDS ORDERED: PROPOFOL 10 MG/ML 20 ML VIAL IV ONE (07:29)
[2016-11-05] MEDS ORDERED: TIMOLOL 0.5% OPHTH SOLN (PF) 0.2 ML DROPERETTE RIGHT EYE ONE (07:45)
[2016-11-05] MEDS ORDERED: HYALURONATE SODIUM INTRAOCULAR 1 EACH SYRINGE (10MG/ML) INTRAOCULA ONE (07:46)
[2016-11-05] MEDS ORDERED: EPINEPHrine (PF) 0.5 ML in BALANCED SALT IRRIG SOLN COMB2 500 ML IRRIGATION ONE (07:47)
--- NOTE | 2016-11-05 07:57 | P.OP ---
Date of Procedure: 11/05/16 Preoperative Diagnosis: Postoperative Diagnosis: Procedure(s) Performed: PREOPERATIVE DIAGNOSIS: Cataract, right eye. POSTOPERATIVE DIAGNOSIS: Cataract, right eye. OPERATION: Phacoemulsification cataract, right eye. DESCRIPTION OF PROCEDURE: The patient was taken to the preoperative holding area. Intravenous Propofol was given so as to bring about adequate sedation. The following mixture was given for local anesthesia: 5 mL of 2% lidocaine, 5 mL of 0.75% Marcaine, and 1 mL of Wydase. Approximately 4 mL was injected in the retrobulbar space of the surgical eye. Additional 1 mL was then directed to the temporal area of the surgical eye. This was performed to allow adequate neurological block of the facial muscles. The patient was revived and then taken into the operative room. The patient was prepped and draped in the usual sterile manner for the operative eye. A lid speculum was put into position. The conjunctiva was resected back from the limbus in the 12 o'clock position. Bleeding was controlled with electrocautery. A #69 blade was then used and a half-thickness scleral incision approximately 1-mm posterior to the limbus was made on bare sclera. This was shelved in the clear cornea using a crescent knife. Next a 15-degree blade was used to make a stab incision at the 3 o' clock position at the corneolimbal interface. Keratome blade was then used and the superior wound was extended into the anterior chamber. Viscoelastic was injected into the anterior chamber and to maintain its form. Next, a cystotome was used and a continuous anterior capsulotomy was made without difficulty. Hydrodissection using a blunt cannula and BSS was performed. Phaco probe was then employed and a groove extending from 12 to 6 o'clock in the lens was created. A Saji wand was used through the stab incision so as to perform a divide and conquer technique. Next an irrigation aspiration probe was utilized and any residual cortex was removed from the eye. Again, viscoelastic was injected into the anterior chamber. An Christopher posterior chamber lens implant was placed in the cartridge and injected into the anterior chamber without difficulty. The EximSoft-Trianzey hook was utilized to spin the lens into position and this was again performed without any difficulty. The irrigation and aspiration probe was again employed and any residual viscoelastic was removed from the eye. Then BSS was injected into the limbal stab incision and the anterior chamber re-inflated. The conjunctiva was reapproximated using electrocautery. One drop of 0.25% Timoptic was placed over the corneal along with TobraDex ophthalmic ointment. Two sterile patches and a Lerner eye shield were taped into position. The patient was transported to the recovery room in stable condition. Implants: Pathology: none sent Condition: stable Disposition: same day Indications for Procedure: Operative Findings: Description of Procedure:
[2016-11-05 08:06] LABS: Glucose,Whole Blood 172 mg/dL (75-99)
[2016-11-05 08:11] VITALS: BP 125/62; PULSE 61
[2016-11-05] MEDS ORDERED: TIMOLOL 0.5% OPHTH SOLN (PF) 0.2 ML DROPERETTE OP ONE (23:00)
[2016-11-05] MEDS ORDERED: BUPIVACAINE (PF) 0.75% 5 ML, LIDOCAINE 4% (PF) 5 ML, HYALURONIDASE, HUMAN RECOMB 150 UNIT MISCELLANE ONE ×3 (23:00)
== END 2016-11-05 08:37 | disposition home or self-care (01) ==
LOC: OR 06:03
PROVIDERS: ATTEND Ophthalmology
DX: H25.11 Age-related nuclear cataract, right eye (principal); E11.9 Type 2 diabetes mellitus without complications; I10 Essential (primary) hypertension; M19.90 Unspecified osteoarthritis, unspecified site; K21.9 Gastro-esophageal reflux disease without esophagitis; Z79.84 Long term (current) use of oral hypoglycemic drugs; Z79.4 Long term (current) use of insulin; Z79.899 Other long term (current) drug therapy; Z88.1 Allergy status to other antibiotic agents; Z88.8 Allergy status to other drugs, medicaments and biological substances; Z88.5 Allergy status to narcotic agent; Z88.0 Allergy status to penicillin; Z88.6 Allergy status to analgesic agent; Z91.040 Latex allergy status
CPT/HCPCS: 66984; V2632; J2001; J3470; J0171; J2704

== ENCOUNTER → 2018-08-11 | Outpatient (CLI) | payer MEDICARE ==
--- NOTE | 2018-08-11 16:41 | XR ---
EXAMINATION TYPE: XR hand complete LT DATE OF EXAM: 08/11/2018 COMPARISON: NONE HISTORY: Pain TECHNIQUE: Three views are submitted. FINDINGS: The osseous structures are intact. Diffuse osteopenia noted. Arthropathy of the DIP joints of the fif th digit noted. There is narrowing of the MCP joints of all digits. No erosive changes. IMPRESSION: 1. No definite acute fracture or dislocation if symptoms persist, follow-up study in 7 to 10 days wo uld be suggested
== END | disposition home or self-care (01) ==
LOC: RADXRMAIN 16:19
PROVIDERS: ATTEND Internal Medicine
DX: M18.12 Unilateral primary osteoarthritis of first carpometacarpal joint, left hand (principal); M65.242 Calcific tendinitis, left hand

== ENCOUNTER 2021-12-19 14:42 | Emergency (ER) | payer MEDICARE ==
[2021-12-19 14:52] VITALS: RESP 18
[2021-12-19 15:20] LABS: Glucose,Whole Blood 132 mg/dL (70-110)
[2021-12-19 15:24] LABS: Basophils # (A) 0.1 k/uL (0-0.2); Basophils % (A) 1 %; Eosinophils # (A) 0.3 k/uL (0-0.7); Eosinophils % (A) 2 %; HCT 42.5 % (34.0-46.0); HGB 13.3 gm/dL (11.4-16.0); Lymphocytes # (A) 2.8 k/uL (1.0-4.8); Lymphocytes % (A) 28 %; MCH 29.2 pg (25.0-35.0); MCHC 31.3 g/dL (31.0-37.0); MCV 93.2 fL (80.0-100.0); Mean Platelet Volume 8.2; Monocytes # (A) 0.6 k/uL (0-1.0); Monocytes % (A) 6 %; Neutrophils # (A) 6.2 k/uL (1.3-7.7); Neutrophils % (A) 60 %; Platelet Count 335 k/uL (150-450); RBC 4.56 m/uL (3.80-5.40); WBC 10.3 k/uL (3.8-10.6)
[2021-12-19 15:38] LABS: ALT 55 U/L (4-34); AST 70 U/L (14-36); African American GFR (CKD) >90 (>60 ml/min/1.73 sqM); Albumin 3.8 g/dL (3.5-5.0); Alkaline Phosphatase 274 U/L (38-126); Anion Gap 13 mmol/L; Blood Urea Nitrogen 16 mg/dL (7-17); Carbon Dioxide 26 mmol/L (22-30); Chloride 95 mmol/L (98-107); Glucose 153 mg/dL (74-99); Non-African American GFR(CKD) 84 (>60 ml/min/1.73 sqM); Potassium 4.5 mmol/L (3.5-5.1); Sodium 134 mmol/L (137-145); Total Bilirubin 0.6 mg/dL (0.2-1.3); Total Protein 7.5 g/dL (6.3-8.2)
[2021-12-19 15:39] LABS: INR 0.9 (<1.2); Partial Thromboplastin Time 24.9 sec (22.0-30.0); Prothrombin Time 10.2 sec (9.0-12.0)
--- NOTE | 2021-12-19 16:03 | ED ---
Neuro HPI - General Chief Complaint: Neuro Symptoms/Deficit Stated Complaint: lt sided numbness Time Seen by Provider: 12/19/21 15:00 Source: patient, family, EMS, RN notes reviewed Mode of arrival: EMS Limitations: no limitations - History of Present Illness Is the patient presenting with stroke symptoms?: Yes Last Known Well Date: 12/19/21 Last Known Well Time: 13:30 Initial Comments: Patient is a 76-year-old male presenting to the emergency room via EMS with complaints of the left side of her face and tongue feeling numb with a left-sided mouth facial droop that resolved quickly. She states up of the time EMS arrived to her home symptoms were regarding starting to resolve and by the time she arrived to the emergency room her facial sensation had completely r eturned to normal. She denies any difficulty swallowing, other focal neurological deficits or weakness. She denies any history of stroke in the past but notes family history of severe stroke. She denies any other complaints or concerns at this time including any chest pain, shortness breath, abdominal pain, nausea, vomiting, fevers or chills. She has a past medical history significant for diabetes, hypertension, hyperlipidemia, GERD, asthma, diverticulitis and acute renal failure secondary to thiazide diuretics. Location: left face History of same: No Place: home Severity: mild Quality: tingling, burning, improving Improves With: time Worsens With: none On Anticoagulants: No Context: sudden onset Associated Symptoms: denies other symptoms Treatments Prior to Arrival: none - Related Data Home Medications: Home Medications Medication Instructions Recorded Confirmed Pioglitazone [Actos] 30 mg PO DAILY 03/11/16 12/19/21 atenoloL [Tenormin] 50 mg PO BID-W/MEALS 03/11/16 12/19/21 metFORMIN HCL [Glucophage] 1,000 mg PO BID-W/MEALS 03/11/16 12/19/21 ALPRAZolam [Xanax] 0.25 mg PO TID PRN 10/02/16 12/19/21 Loratadine [Claritin] 10 mg PO W/LUNCH 10/02/16 12/19/21 lisinopriL [Prinivil] 20 mg PO W/SUPPER 10/02/16 12/19/21 Insulin Glargine,Hum.rec.anlog 12 - 14 unit SQ HS 10/24/16 12/19/21 [Lantus Solostar] Mag 64 6 tab PO DAILY@1400 10/24/16 12/19/21 Furosemide [Lasix] 20 mg PO DAILY PRN 12/19/21 12/19/21 Loperamide [Imodium] 2 - 4 mg PO QID PRN 12/19/21 12/19/21 Magnesium Chloride [Mag64] 384 mg PO DAILY@1400 12/19/21 12/19/21 Pantoprazole [Protonix] 40 mg PO DAILY 12/19/21 12/19/21 Previous Rx's Medication Instructions Recorded cloNIDine HCL [Catapres] 0.2 mg PO HS tab 03/28/16 Allergies/Adverse Reactions: Allergies Allergy/AdvReac Type Severity Reaction Status Date / Time cephalexin Allergy Unknown Verified 12/19/21 18:09 ciprofloxacin [From Cipro] Allergy Anaphylaxis Verified 12/19/21 18:09 codeine Allergy Chest Pain Verified 12/19/21 18:09 diclofenac Allergy Anaphylaxis Verified 12/19/21 18:09 difluprednate [From Durezol] Allergy Anaphylaxis Verified 12/19/21 18:09 dog dander Allergy Unknown Verified 12/19/21 18:09 doxycycline [From Vibramycin] Allergy Unknown Verified 12/19/21 18:09 epinephrine Allergy Unknown Verified 12/19/21 18:09 erythromycin base Allergy Unknown Verified 12/19/21 18:09 Fish Containing Products Allergy Anaphylaxis Verified 12/19/21 18:09 latex Allergy Anaphylaxis Verified 12/19/21 18:09 metronidazole [From Flagyl] Allergy Anaphylaxis Verified 12/19/21 18:09 mold Allergy Unknown Verified 12/19/21 18:09 nepafenac Allergy Anaphylaxis Verified 12/19/21 18:09 ofloxacin [From Floxin] Allergy Anaphylaxis Verified 12/19/21 18:09 Penicillins Allergy Unknown Verified 12/19/21 18:09 Childhood shellfish derived [Shellfish] Allergy Anaphylaxis Verified 12/19/21 18:09 strawberry Allergy Burning & Verified 12/19/21 18:09 swelling Thiazides Allergy Unknown Verified 12/19/21 18:09 tomato AdvReac Mild Unknown Verified 12/19/21 18:09 Childhood bandages Allergy Unknown Uncoded 12/19/21 18:09 dust Allergy Unknown Uncoded 12/19/21 18:09 seafood Allergy Anaphylaxis Uncoded 12/19/21 18:09 Review of Systems ROS Statement: Those systems with pertinent positive or pertinent negative responses have been documented in the HPI. ROS Other: All systems not noted in ROS Statement are negative. General Exam Limitations: no limitations General appearance: alert, in no apparent distress Head exam: Present: atraumatic, normocephalic, normal inspection Eye exam: Present: normal appearance, PERRL, EOMI. Absent: scleral icterus, conjunctival injection, nystagmus, periorbital swelling Expanded Eyelids: Normal Inspection: Bilateral Pupils: Regular, Round: Bilateral, Reactive: Bilateral Sclera/Conjunctival: Normal Inspection: Bilateral ENT exam: Present: normal exam, mucous membranes moist Neck exam: Present: normal inspection, full ROM Respiratory exam: Present: normal lung sounds bilaterally. Absent: respiratory distress, wheezes, rales, rhonchi, stridor Cardiovascular Exam: Present: regular rate, normal rhythm, normal heart sounds. Absent: systolic murmur, diastolic murmur, rubs, gallop, clicks GI/Abdominal exam: Present: soft, normal bowel sounds. Absent: distended, tenderness, guarding, rebound, rigid Rectal exam: Present: deferred Extremities exam: Present: normal inspection, pedal edema (Bilateral +2 chronic) Back exam: Present: normal inspection Neurological exam: Present: alert, oriented X3, CN II-XII intact Expanded Cranial nerves: EOM's Intact: Normal, Gag Reflex: Normal, Tongue Deviation: Normal, Nystagmus: Normal, Facial Sensation: Normal Motor strength exam: RUE: 5, LUE: 5, RLE: 5, LLE: 5 Sergey Total: 15 Psychiatric exam: Present: normal affect, normal mood Skin exam: Present: warm, dry, intact, normal color. Absent: rash Stroke MDM - Lab Data Result diagrams: 12/19/21 15:15 12/19/21 15:15 Lab Results 12/19/21 12/19/21 12/19/21 Range/Units 15:15 15:15 15:15 WBC 10.3 (3.8-10.6) k/uL RBC 4.56 (3.80-5.40) m/uL Hgb 13.3 (11.4-16.0) gm/dL Hct 42.5 (34.0-46.0) % MCV 93.2 (80.0-100.0) fL MCH 29.2 (25.0-35.0) pg MCHC 31.3 (31.0-37.0) g/dL RDW 14.0 (11.5-15.5) % Plt Count 335 (150-450) k/uL MPV 8.2 Neutrophils % 60 % Lymphocytes % 28 % Monocytes % 6 % Eosinophils % 2 % Basophils % 1 % Neutrophils # 6.2 (1.3-7.7) k/uL Lymphocytes # 2.8 (1.0-4.8) k/uL Monocytes # 0.6 (0-1.0) k/uL Eosinophils # 0.3 (0-0.7) k/uL Basophils # 0.1 (0-0.2) k/uL PT 10.2 (9.0-12.0) sec INR 0.9 (<1.2) APTT 24.9 (22.0-30.0) sec Sodium 134 L (137-145) mmol/L Potassium 4.5 (3.5-5.1) mmol/L Chloride 95 L (98-107) mmol/L Carbon Dioxide 26 (22-30) mmol/L Anion Gap 13 mmol/L BUN 16 (7-17) mg/dL Creatinine 0.70 (0.52-1.04) mg/dL Est GFR (CKD-EPI)AfAm >90 (>60 ml/min/1.73 sqM) Est GFR (CKD-EPI)NonAf 84 (>60 ml/min/1.73 sqM) Glucose 153 H (74-99) mg/dL POC Glucose (mg/dL) (70-110) mg/dL POC Glu Type Inspector ID Calcium 10.0 (8.4-10.2) mg/dL Total Bilirubin 0.6 (0.2-1.3) mg/dL AST 70 H (14-36) U/L ALT 55 H (4-34) U/L Alkaline Phosphatase 274 H (38-126) U/L Troponin I (0.000-0.034) ng/mL Total Protein 7.5 (6.3-8.2) g/dL Albumin 3.8 (3.5-5.0) g/dL Urine Color Urine Appearance (Clear) Urine pH (5.0-8.0) Ur Specific [place] (1.001-1.035) Urine Protein (Negative) Urine Glucose (UA) (Negative) Urine Ketones (Negative) Urine Blood (Negative) Urine Nitrite (Negative) Urine Bilirubin (Negative) Urine Urobilinogen (<2.0) mg/dL Ur Leukocyte Esterase (Negative) Urine RBC (0-5) /hpf Urine WBC (0-5) /hpf Ur Squamous Epith Cells (0-4) /hpf Urine Bacteria (None) /hpf Urine Mucus (None) /hpf 12/19/21 12/19/21 12/19/21 Range/Units 15:15 15:18 15:42 WBC (3.8-10.6) k/uL RBC (3.80-5.40) m/uL Hgb (11.4-16.0) gm/dL Hct (34.0-46.0) % MCV (80.0-100.0) fL MCH (25.0-35.0) pg MCHC (31.0-37.0) g/dL RDW (11.5-15.5) % Plt Count (150-450) k/uL MPV Neutrophils % % Lymphocytes % % Monocytes % % Eosinophils % % Basophils % % Neutrophils # (1.3-7.7) k/uL Lymphocytes # (1.0-4.8) k/uL Monocytes # (0-1.0) k/uL Eosinophils # (0-0.7) k/uL Basophils # (0-0.2) k/uL PT (9.0-12.0) sec INR (<1.2) APTT (22.0-30.0) sec Sodium (137-145) mmol/L Potassium (3.5-5.1) mmol/L Chloride (98-107) mmol/L Carbon Dioxide (22-30) mmol/L Anion Gap mmol/L BUN (7-17) mg/dL Creatinine (0.52-1.04) mg/dL Est GFR (CKD-EPI)AfAm (>60 ml/min/1.73 sqM) Est GFR (CKD-EPI)NonAf (>60 ml/min/1.73 sqM) Glucose (74-99) mg/dL POC Glucose (mg/dL) 132 H (70-110) mg/dL POC Glu Type Inspector ID Hanna Hilton Calcium (8.4-10.2) mg/dL Total Bilirubin (0.2-1.3) mg/dL AST (14-36) U/L ALT (4-34) U/L Alkaline Phosphatase (38-126) U/L Troponin I <0.012 (0.000-0.034) ng/mL Total Protein (6.3-8.2) g/dL Albumin (3.5-5.0) g/dL Urine Color Light Yellow Urine Appearance Clear (Clear) Urine pH 7.0 (5.0-8.0) Ur Specific [place] 1.007 (1.001-1.035) Urine Protein 2+ H (Negative) Urine Glucose (UA) Negative (Negative) Urine Ketones Negative (Negative) Urine Blood Negative (Negative) Urine Nitrite Negative (Negative) Urine Bilirubin Negative (Negative) Urine Urobilinogen <2.0 (<2.0) mg/dL Ur Leukocyte Esterase Negative (Negative) Urine RBC 1 (0-5) /hpf Urine WBC 1 (0-5) /hpf Ur Squamous Epith Cells <1 (0-4) /hpf Urine Bacteria Moderate H (None) /hpf Urine Mucus Rare H (None) /hpf 12/19/21 Range/Units 17:45 WBC (3.8-10.6) k/uL RBC (3.80-5.40) m/uL Hgb (11.4-16.0) gm/dL Hct (34.0-46.0) % MCV (80.0-100.0) fL MCH (25.0-35.0) pg MCHC (31.0-37.0) g/dL RDW (11.5-15.5) % Plt Count (150-450) k/uL MPV Neutrophils % % Lymphocytes % % Monocytes % % Eosinophils % % Basophils % % Neutrophils # (1.3-7.7) k/uL Lymphocytes # (1.0-4.8) k/uL Monocytes # (0-1.0) k/uL Eosinophils # (0-0.7) k/uL Basophils # (0-0.2) k/uL PT (9.0-12.0) sec INR (<1.2) APTT (22.0-30.0) sec Sodium (137-145) mmol/L Potassium (3.5-5.1) mmol/L Chloride (98-107) mmol/L Carbon Dioxide (22-30) mmol/L Anion Gap mmol/L BUN (7-17) mg/dL Creatinine (0.52-1.04) mg/dL Est GFR (CKD-EPI)AfAm (>60 ml/min/1.73 sqM) Est GFR (CKD-EPI)NonAf (>60 ml/min/1.73 sqM) Glucose (74-99) mg/dL POC Glucose (mg/dL) 180 H (70-110) mg/dL POC Glu Type Inspector ID Tommy Nehal Calcium (8.4-10.2) mg/dL Total Bilirubin (0.2-1.3) mg/dL AST (14-36) U/L ALT (4-34) U/L Alkaline Phosphatase (38-126) U/L Troponin I (0.000-0.034) ng/mL Total Protein (6.3-8.2) g/dL Albumin (3.5-5.0) g/dL Urine Color Urine Appearance (Clear) Urine pH (5.0-8.0) Ur Specific [place] (1.001-1.035) Urine Protein (Negative) Urine Glucose (UA) (Negative) Urine Ketones (Negative) Urine Blood (Negative) Urine Nitrite (Negative) Urine Bilirubin (Negative) Urine Urobilinogen (<2.0) mg/dL Ur Leukocyte Esterase (Negative) Urine RBC (0-5) /hpf Urine WBC (0-5) /hpf Ur Squamous Epith Cells (0-4) /hpf Urine Bacteria (None) /hpf Urine Mucus (None) /hpf - NIH Stroke Scale 1a. Level of Consciousness: (0) alert 1b. LOC Questions: (0) answers correctly 1c. LOC Commands: (0) performs tasks correctly 2. Best Gaze: (0) normal 3. Visual: (0) no visual loss 4. Facial Palsy: (0) normal symmetrical movement 5a. Motor Arm Left: (0) no drift 5b. Motor Arm Right: (0) no drift 6a. Motor Leg Left: (0) no drift 6b. Motor Leg Right: (0) no drift 7. Limb Ataxia: (0) absent 8. Sensory: (0) normal 9. Best Language: (0) no aphasia 10. Dysarthria: (0) normal 11. Extinction/Inattention: (0) no abnormality - Thrombolytic Inclusion/Exclusion Thrombolytic Exclusion Criteria: Symptom Onset > 4.5 Hours Thrombolytic Inclusion Criteria: Symptom Onset < 4.5 h, Age 18 or Older, Glucose of 50-400mg/dl Thrombolytic Contraindications: NIH 0 - Core Measures Measure Exclusions: not indicated (NIH 0) - Medical Decision Making 76-year-old female presenting to the emergency room sudden onset of left-sided facial tingling which had resolved for the time she presented to the emergency room. She has family history of strokes and was a concern by her symptoms. She denies any intervention by both herself or EMS to make the symptoms stop. Acute onset of sudden symptoms were witnessed by spouse workup for CVA with computed tomography scan, CMP CBC and chest x-ray along with urinalysis. Due to NIH scale of 0 upon arrival to the emergency room no TPA is indicated. CT the brain negative for acute findings. Patient declines CT angiogram due to reported ALLERGY to contrast dye however she does not able to disclose when she had her ALLERGIC reaction over her reaction was. . CBCT stable. CMP revealed elevated liver enzymes and alk phos consistent with patient's previous blood work for transaminitis secondary to fatty liver. No acute laboratory anomalies. Patient is agreeable to be discharged home with follow-up with her primary care provider and to return to the emergency room if any neurological deficits occur. Case discussed with Dr. Cui. Past Medical History Past Medical History: Asthma, Diabetes Mellitus, GERD/Reflux, Hyperlipidemia, Hypertension Additional Past Medical History / Comment(s): Zenker's diverticulum, hemrroids History of Any Multi-Drug Resistant Organisms: None Reported Past Surgical History: Cholecystectomy, Hysterectomy, Orthopedic Surgery, Tonsillectomy, Tubal Ligation Additional Past Surgical History / Comment(s): right knee. right cataract. Past Anesthesia/Blood Transfusion Reactions: No Reported Reaction Past Psychological History: Anxiety Smoking Status: Never smoker Past Alcohol Use History: None Reported Past Drug Use History: None Reported - Past Family History Mother Family Medical History: Cancer Additional Family Medical History / Comment(s): . Father Family Medical History: Cancer Additional Family Medical History / Comment(s): prostate Course Vital Signs 12/19/21 12/19/21 14:45 17:59 Temperature 98.0 F 98.2 F Pulse Rate 60 97 Respiratory 18 18 Rate Blood Pressure 195/86 207/93 O2 Sat by Pulse 97 97 Oximetry Disposition Clinical Impression: Transient cerebral ischemia Disposition: HOME SELF-CARE Condition: Stable Instructions (If sedation given, give patient instructions): Transient Ischemic Attack (ED) Additional Instructions: Please return to the emergency room via EMS if any recurrence of neurological deficits, numbness, tingling, or weakness. Please follow-up with your primary care provider. Please return to the Emergency Department if symptoms worsen or any other concerns. Is patient prescribed a controlled substance at d/c from ED?: No Referrals: Latanya Sanchez MD [Primary Care Provider] - 1-2 days Time of Disposition: 18:13
[2021-12-19 17:11] LABS: Appearance,Urine Clear (Clear); Bacteria,Urine Moderate /hpf; Bilirubin,Urine Negative (Negative); Blood,Urine Negative (Negative); Color,Urine Light Yellow; Glucose,Urine (UA) Negative (Negative); Ketones,Urine Negative (Negative); Leukocyte Esterase,Urine Negative (Negative); Mucus,Urine Rare /hpf; Nitrite,Urine Negative (Negative); Protein,Urine 2+ (Negative); RBC,Urine 1 /hpf (0-5); Specific Gravity,Urine 1.007 (1.001-1.035); Squamous Epithelial Cell,Urine <1 /hpf (0-4); Urobilinogen,Urine <2.0 mg/dL (<2.0); WBC,Urine 1 /hpf (0-5)
[2021-12-19 17:47] LABS: Glucose,Whole Blood 180 mg/dL (70-110)
[2021-12-19 18:00] VITALS: TEMP 98.2
[2021-12-19 18:46] VITALS: BP 194/78; PULSE 88
--- NOTE | 2021-12-20 13:27 | XR ---
EXAMINATION TYPE: XR chest 2V DATE OF EXAM: 12/19/2021 COMPARISON: Unavailable HISTORY: Left-sided numbness TECHNIQUE: Frontal and lateral views of the chest are obtained. FINDINGS: Lung volumes are low, patient is rotated. There is no focal air space opacity, pleural eff usion, or pneumothorax seen. The cardiac silhouette size is within normal limits. The osseous stru ctures are intact. IMPRESSION: No acute cardiopulmonary process.
--- NOTE | 2021-12-20 14:32 | CT ---
EXAMINATION TYPE: CT brain wo con for TPA DATE OF EXAM: 12/19/2021 HISTORY: Facial weakness. CT DLP: 1127 mGycm. Automated Exposure Control for Dose Reduction was Utilized. TECHNIQUE: CT scan of the head is performed without contrast. COMPARISON: CT brain report 2017. FINDINGS: There is no acute intracranial hemorrhage or midline shift identified. There is mild diff use ventricular and sulcal prominence consistent with diffuse age-related cerebral atrophy. There is mild to moderate low-attenuation in the deep and periventricular white matter consistent with chroni c small vessel ischemic change. Hyperostosis frontalis. Scleral calcification right globe. Visualized paranasal sinuses are clear. IMPRESSION: No acute intracranial hemorrhage or midline shift. There is mild diffuse age-related ce rebral atrophy and mild to moderate chronic small vessel ischemic change noted. Preliminary report provided by on-site radiologist.
== END 2021-12-19 18:45 | disposition home or self-care (01) ==
LOC: EC 14:42
DX: G45.9 Transient cerebral ischemic attack, unspecified (principal); J45.909 Unspecified asthma, uncomplicated; E11.9 Type 2 diabetes mellitus without complications; E78.5 Hyperlipidemia, unspecified; I10 Essential (primary) hypertension; K21.9 Gastro-esophageal reflux disease without esophagitis; Z53.29 Procedure and treatment not carried out because of patient's decision for other reasons; Z79.4 Long term (current) use of insulin; Z79.899 Other long term (current) drug therapy; Z88.1 Allergy status to other antibiotic agents; Z88.5 Allergy status to narcotic agent; Z88.6 Allergy status to analgesic agent; Z91.048 Other nonmedicinal substance allergy status; Z91.014 Allergy to mammalian meats; Z91.013 Allergy to seafood; Z91.040 Latex allergy status; Z88.0 Allergy status to penicillin; Z91.018 Allergy to other foods
CPT/HCPCS: 36415; 70450; 71046; 80053; 81001; 84484; 85025; 85610; 85730; 93005; 99285

== ENCOUNTER 2021-12-23 17:53 | Emergency (ER) | payer MEDICARE ==
[2021-12-23 18:00] VITALS: TEMP 98.6
--- NOTE | 2021-12-23 18:55 | ED ---
General Adult HPI - General Chief complaint: Recheck/Abnormal Lab/Rx Stated complaint: hypertension Time Seen by Provider: 12/23/21 18:50 Source: patient, EMS Mode of arrival: EMS Limitations: no limitations - History of Present Illness Initial comments: Patient presents to the ED with her for evaluation. Patient states that she was seen in the emergency department after having symptoms of a TIA 4 days ago, and she states that ever since then, she has had elevated blood pressure readings, especially when she checks them in the afternoon. Patient denies any recent change in her blood pressure medications or medication noncompliance. Patient denies having any TIA symptoms or any other symptoms since her ED visit 4 days ago. Patient denies having any pain, fever or chills, headache, focal numbness/weakness/neuro deficit, visual changes, speech difficulty, chest pain or pressure, dyspnea, cough or cold symptoms, palpitations, dizziness, abdominal pain, nausea/vomiting/diarrhea, dysuria or urinary symptoms, decreased urine output, or any other symptoms or complaints. - Related Data Home Medications Medication Instructions Recorded Confirmed Pioglitazone [Actos] 30 mg PO DAILY 03/11/16 12/23/21 atenoloL [Tenormin] 50 mg PO BID-W/MEALS 03/11/16 12/23/21 metFORMIN HCL [Glucophage] 1,000 mg PO BID-W/MEALS 03/11/16 12/23/21 ALPRAZolam [Xanax] 0.25 mg PO TID PRN 10/02/16 12/23/21 Loratadine [Claritin] 10 mg PO W/LUNCH 10/02/16 12/23/21 lisinopriL [Prinivil] 20 mg PO W/SUPPER 10/02/16 12/23/21 Insulin Glargine,Hum.rec.anlog 12 - 14 unit SQ HS 10/24/16 12/23/21 [Lantus Solostar] Furosemide [Lasix] 20 mg PO DAILY PRN 12/19/21 12/23/21 Loperamide [Imodium] 2 - 4 mg PO QID PRN 12/19/21 12/23/21 Magnesium Chloride [Mag64] 384 mg PO DAILY@1400 12/19/21 12/23/21 Pantoprazole [Protonix] 40 mg PO DAILY 12/19/21 12/23/21 Ezetimibe [Zetia] 10 mg PO DAILY@199912/23/21 12/23/21 Rosuvastatin [Crestor] 10 mg PO DAILY@199912/23/21 12/23/21 Previous Rx's Medication Instructions Recorded cloNIDine HCL [Catapres] 0.2 mg PO HS tab 03/28/16 Losartan Potassium 100 mg PO DAILY #14 tablet 12/23/21 Allergies Allergy/AdvReac Type Severity Reaction Status Date / Time cephalexin Allergy Unknown Verified 12/23/21 20:20 ciprofloxacin [From Cipro] Allergy Anaphylaxis Verified 12/23/21 20:20 codeine Allergy Chest Pain Verified 12/23/21 20:20 diclofenac Allergy Anaphylaxis Verified 12/23/21 20:20 difluprednate [From Durezol] Allergy Anaphylaxis Verified 12/23/21 20:20 dog dander Allergy Unknown Verified 12/23/21 20:20 doxycycline [From Vibramycin] Allergy Unknown Verified 12/23/21 20:20 epinephrine Allergy Unknown Verified 12/23/21 20:20 erythromycin base Allergy Unknown Verified 12/23/21 20:20 Fish Containing Products Allergy Anaphylaxis Verified 12/23/21 20:20 latex Allergy Anaphylaxis Verified 12/23/21 20:20 metronidazole [From Flagyl] Allergy Anaphylaxis Verified 12/23/21 20:20 mold Allergy Unknown Verified 12/23/21 20:20 nepafenac Allergy Anaphylaxis Verified 12/23/21 20:20 ofloxacin [From Floxin] Allergy Anaphylaxis Verified 12/23/21 20:20 Penicillins Allergy Unknown Verified 12/23/21 20:20 Childhood shellfish derived [Shellfish] Allergy Anaphylaxis Verified 12/23/21 20:20 strawberry Allergy Burning & Verified 12/23/21 20:20 swelling Thiazides Allergy Unknown Verified 12/23/21 20:20 tomato AdvReac Mild Unknown Verified 12/23/21 20:20 Childhood bandages Allergy Unknown Uncoded 12/19/21 18:09 dust Allergy Unknown Uncoded 12/19/21 18:09 seafood Allergy Anaphylaxis Uncoded 12/19/21 18:09 Review of Systems ROS Statement: Those systems with pertinent positive or pertinent negative responses have been documented in the HPI. ROS Other: All systems not noted in ROS Statement are negative. Past Medical History Past Medical History: Asthma, Diabetes Mellitus, GERD/Reflux, Hyperlipidemia, H ypertension Additional Past Medical History / Comment(s): Zenker's diverticulum, hemrroids History of Any Multi-Drug Resistant Organisms: None Reported Past Surgical History: Cholecystectomy, Hysterectomy, Orthopedic Surgery, Tonsillectomy, Tubal Ligation Additional Past Surgical History / Comment(s): right knee. right cataract. Past Anesthesia/Blood Transfusion Reactions: No Reported Reaction Past Psychological History: Anxiety Smoking Status: Never smoker Past Alcohol Use History: None Reported Past Drug Use History: None Reported - Past Family History Mother Family Medical History: Cancer Additional Family Medical History / Comment(s): . Father Family Medical History: Cancer Additional Family Medical History / Comment(s): prostate General Exam Limitations: no limitations General appearance: alert, in no apparent distress Head exam: Present: atraumatic, normocephalic Eye exam: Present: normal appearance, PERRL, EOMI ENT exam: Present: mucous membranes moist Neck exam: Present: other (Trachea is in midline) Respiratory exam: Present: normal lung sounds bilaterally. Absent: respiratory distress, wheezes, rales, rhonchi, stridor Cardiovascular Exam: Present: regular rate, normal rhythm, normal heart sounds, other (Normal radial pulses bilaterally) GI/Abdominal exam: Present: soft. Absent: distended, tenderness, guarding Extremities exam: Absent: tenderness, pedal edema Neurological exam: Present: alert, oriented X3, CN II-XII intact. Absent: motor sensory deficit Psychiatric exam: Present: normal affect, normal mood Skin exam: Present: warm, dry, intact, normal color Course Vital Signs 12/23/21 12/23/21 12/23/21 17:55 19:34 20:29 Temperature 98.6 F Pulse Rate 70 61 64 Respiratory 18 16 16 Rate Blood Pressure 200/86 201/87 198/103 O2 Sat by Pulse 95 95 96 Oximetry 12/23/21 21:41 Temperature Pulse Rate 62 Respiratory 16 Rate Blood Pressure 188/89 O2 Sat by Pulse 95 Oximetry - Reevaluation(s) Reevaluation #1: 12/23/21 21:00 Case, H&P, test results and ED management thus far were discussed with Dr. Sanchez (patient's primary care provider). He recommends discontinuing the patient's lisinopril and starting her on losartan 100 mg PO daily (he recommends giving her her first dose in the emergency department tonight). He recommends discharging the patient home and having her follow-up with him in his clinic for further blood pressure evaluation and management. He has no further recommendations at this time. 12/23/21 22:05 Patient's blood pressure has now improved to 183/82. Patient remains alert and breathing comfortably. Patient continues to deny having any symptoms while in the ED. Patient and are aware of the patient's test results and my discussion with Dr. Sanchez as above. Patient was instructed to, and agrees to, discontinue use of lisinopril, and to replace it with losartan 100 mg PO daily. She was also instructed to, and agrees to, and Dr. Sanchez's office tomorrow morning to schedule a close follow-up appointment. Patient was counseled about hypertension and hypomagnesemia. Patient was clearly explained return and follow-up instructions. She feels comfortable with this plan. EKG Findings - EKG Comments: EKG Findings:: Normal sinus rhythm, ventricular rate of 63 bpm, no ectopy, normal IL and QRS intervals, normal QT interval, normal axis, no ST or T-wave abnormality Medical Decision Making - Medical Decision Making Patient's blood pressure is improved with ED treatment. Patient's magnesium has been repleted in the ED with IV magnesium sulfate. Patient has been asymptomatic while in the ED. I do not suspect an emergent medical condition at this time. Will discharge patient home at this time with instructions to follow up closely with her primary care provider (Dr. Sanchez). Patient feels comfortable with this plan. - Lab Data Result diagrams: 12/23/21:12/23/21: Lab Results 12/23/21 12/23/21 12/23/21 Range/Units 19:22 19: 19: WBC 9.8 (3.8-10.6) k/uL RBC 4.18 (3.80-5.40) m/uL Hgb 12.7 (11.4-16.0) gm/dL Hct 39.1 (34.0-46.0) % MCV 93.5 (80.0-100.0) fL MCH 30.3 (25.0-35.0) pg MCHC 32.4 (31.0-37.0) g/dL RDW 14.2 (11.5-15.5) % Plt Count 332 (150-450) k/uL MPV 8.4 Neutrophils % 61 % Lymphocytes % 26 % Monocytes % 7 % Eosinophils % 2 % Basophils % 1 % Neutrophils # 6.0 (1.3-7.7) k/uL Lymphocytes # 2.6 (1.0-4.8) k/uL Monocytes # 0.7 (0-1.0) k/uL Eosinophils # 0.2 (0-0.7) k/uL Basophils # 0.1 (0-0.2) k/uL Sodium 134 L (137-145) mmol/L Potassium 4.7 (3.5-5.1) mmol/L Chloride 93 L (98-107) mmol/L Carbon Dioxide 28 (22-30) mmol/L Anion Gap 13 mmol/L BUN 16 (7-17) mg/dL Creatinine 0.85 (0.52-1.04) mg/dL Est GFR (CKD-EPI)AfAm 77 (>60 ml/min/1.73 sqM) Est GFR (CKD-EPI)NonAf 67 (>60 ml/min/1.73 sqM) Glucose 126 H (74-99) mg/dL Calcium 9.7 (8.4-10.2) mg/dL Magnesium 1.0 L (1.6-2.3) mg/dL Total Bilirubin 0.5 (0.2-1.3) mg/dL AST 72 H (14-36) U/L ALT 54 H (4-34) U/L Alkaline Phosphatase 277 H (38-126) U/L Troponin I <0.012 (0.000-0.034) ng/mL Total Protein 7.0 (6.3-8.2) g/dL Albumin 3.6 (3.5-5.0) g/dL Disposition Clinical Impression: Hypertension, Hypomagnesemia Disposition: HOME SELF-CARE Condition: Stable Instructions (If sedation given, give patient instructions): Hypertension in the Older Adult (ED), Hypomagnesemia (ED) Additional Instructions: Return to the ER immediately should you develop any significant pain, a severe headache, numbness or weakness, chest pain, shortness of breath, feeling dizzy or faint, or new or worsening symptoms. Follow up closely with your primary care provider. Prescriptions: Losartan Potassium 100 mg PO DAILY #14 tablet Is patient prescribed a controlled substance at d/c from ED?: No Referrals: Latanya Sanchez MD [Primary Care Provider] - 1-2 days Time of Disposition: 22:09
[2021-12-23 19:26] LABS: Basophils # (A) 0.1 k/uL (0-0.2); Basophils % (A) 1 %; Eosinophils # (A) 0.2 k/uL (0-0.7); Eosinophils % (A) 2 %; HCT 39.1 % (34.0-46.0); HGB 12.7 gm/dL (11.4-16.0); Lymphocytes # (A) 2.6 k/uL (1.0-4.8); Lymphocytes % (A) 26 %; MCH 30.3 pg (25.0-35.0); MCHC 32.4 g/dL (31.0-37.0); MCV 93.5 fL (80.0-100.0); Mean Platelet Volume 8.4; Monocytes # (A) 0.7 k/uL (0-1.0); Monocytes % (A) 7 %; Neutrophils % (A) 61 %; Platelet Count 332 k/uL (150-450); RBC 4.18 m/uL (3.80-5.40); RDW 14.2 % (11.5-15.5); WBC 9.8 k/uL (3.8-10.6)
[2021-12-23 19:36] VITALS: RESP 16
[2021-12-23] MEDS ORDERED: cloNIDine HCL 0.1 MG TAB PO STA (19:37)
[2021-12-23 19:41] LABS: Albumin 3.6 g/dL (3.5-5.0); Calcium 9.7 mg/dL (8.4-10.2); Potassium 4.7 mmol/L (3.5-5.1); Total Bilirubin 0.5 mg/dL (0.2-1.3)
[2021-12-23] MEDS: MAGNESIUM SULFATE-D5W PMX 1 GM in DEXTROSE/WATER 1 100ML.BAG IVPB SCH ×2 (20:29→21:43)
[2021-12-23] MEDS ORDERED: LOSARTAN 50 MG TAB PO STA (21:00)
[2021-12-23 22:10] VITALS: BP 174/83; PULSE 64
== END 2021-12-23 22:32 | disposition home or self-care (01) ==
LOC: EC 17:53
DX: E83.42 Hypomagnesemia (principal); I10 Essential (primary) hypertension; J45.909 Unspecified asthma, uncomplicated; E11.9 Type 2 diabetes mellitus without complications; E78.5 Hyperlipidemia, unspecified; K21.9 Gastro-esophageal reflux disease without esophagitis; Z79.83 Long term (current) use of bisphosphonates; Z88.1 Allergy status to other antibiotic agents; Z88.5 Allergy status to narcotic agent; Z88.6 Allergy status to analgesic agent; Z88.0 Allergy status to penicillin; Z91.030 Bee allergy status; Z91.013 Allergy to seafood; Z91.018 Allergy to other foods
CPT/HCPCS: 36415; 93005; 80053; 83735; 84484; 85025; 99284; 96365; 96366; J3475

== ENCOUNTER 2022-07-20 17:00 | Inpatient (IN) | payer MEDICARE ==
--- NOTE | 2022-07-20 17:21 | ED ---
Chest Pain HPI - General Chief Complaint: Chest Pain Stated Complaint: chest pain, hypertension Time Seen by Provider: 07/20/22 17:17 Source: patient Mode of arrival: EMS Limitations: no limitations - History of Present Illness Initial Comments: 77-year-old female past medical history of asthma, hypertension, hyperlipidemia presents to the emergency departments with high blood pressure and chest pain. States that throughout the day today she has been having palpitations. She felt like she was going to pass out and therefore she took her blood pressure and it was found to be markedly elevated. Has a history of high blood pressure but states it has been well controlled on her medications. She took an extra clonidine and called EMS. She reported to some chest discomfort. No history of coronary disease. She admits to some nausea without vomiting. No fevers. No cough or shortness of breath. She does have chronically low magnesium and st ates that she doesn't take her magnesium supplements as directed. No other alleviating, precipitating or modifying factors - Related Data Home Medications Medication Instructions Recorded Confirmed Pioglitazone [Actos] 30 mg PO DAILY 03/11/16 07/20/22 atenoloL [Tenormin] 50 mg PO BID-W/MEALS 03/11/16 07/20/22 metFORMIN HCL [Glucophage] 1,000 mg PO W/SUPPER 03/11/16 07/20/22 ALPRAZolam [Xanax] 0.125 mg PO BID-W/MEALS 10/02/16 07/20/22 Insulin Glargine,Hum.rec.anlog 1 dose SQ HS 10/24/16 07/20/22 [Lantus Solostar Pen] Pantoprazole [Protonix] 40 mg PO W/SUPPER 12/19/21 07/20/22 Previous Rx's Medication Instructions Recorded cloNIDine HCL [Catapres] 0.2 mg PO HS tab 03/28/16 Losartan Potassium 100 mg PO DAILY #14 tablet 12/23/21 Aspirin 81 mg PO DAILY #30 tab 07/25/22 Furosemide [Lasix] 40 mg PO DAILY #30 tablet 07/25/22 amLODIPine [Norvasc] 5 mg PO DAILY #30 tab 07/25/22 hydrALAZINE HCL [Apresoline] 25 mg PO BID #30 tab 07/25/22 Allergies Allergy/AdvReac Type Severity Reaction Status Date / Time cephalexin Allergy Unknown Verified 07/20/22 18:51 ciprofloxacin [From Cipro] Allergy Anaphylaxis Verified 07/20/22 18:51 codeine Allergy Chest Pain Verified 07/20/22 18:51 diclofenac Allergy Anaphylaxis Verified 07/20/22 18:51 difluprednate [From Durezol] Allergy Anaphylaxis Verified 07/20/22 18:51 dog dander Allergy Unknown Verified 07/20/22 18:51 doxycycline [From Vibramycin] Allergy Unknown Verified 07/20/22 18:51 epinephrine Allergy Unknown Verified 07/20/22 18:51 erythromycin base Allergy Unknown Verified 07/20/22 18:51 Fish Containing Products Allergy Anaphylaxis Verified 07/20/22 18:51 latex Allergy Anaphylaxis Verified 07/20/22 18:51 metronidazole [From Flagyl] Allergy Anaphylaxis Verified 07/20/22 18:51 mold Allergy Unknown Verified 07/20/22 18:51 nepafenac Allergy Anaphylaxis Verified 07/20/22 18:51 ofloxacin [From Floxin] Allergy Anaphylaxis Verified 07/20/22 18:51 Penicillins Allergy Unknown Verified 07/20/22 18:51 Childhood shellfish derived [Shellfish] Allergy Anaphylaxis Verified 07/20/22 18:51 strawberry Allergy Burning & Verified 07/20/22 18:51 swelling Thiazides Allergy Unknown Verified 07/20/22 18:51 tomato AdvReac Mild Unknown Verified 07/20/22 18:51 Childhood bandages Allergy Unknown Uncoded 07/20/22 18:51 dust Allergy Unknown Uncoded 07/20/22 18:51 seafood Allergy Anaphylaxis Uncoded 07/20/22 18:51 Review of Systems ROS Statement: Those systems with pertinent positive or pertinent negative responses have been documented in the HPI. ROS Other: All systems not noted in ROS Statement are negative. EKG Findings - EKG Comments: EKG Findings:: EKG demonstrates sinus rhythm at a rate of 68. [place] 148. QRS 86. QTC of 396. No acute ST segment elevations or depressions Past Medical History Past Medical History: Asthma, Diabetes Mellitus, GERD/Reflux, Hyperlipidemia, Hypertension Additional Past Medical History / Comment(s): Zenker's diverticulum, hemrroids History of Any Multi-Drug Resistant Organisms: None Reported Past Surgical History: Cholecystectomy, Hysterectomy, Orthopedic Surgery, Tonsillectomy, Tubal Ligation Additional Past Surgical History / Comment(s): right knee. right cataract. Past Anesthesia/Blood Transfusion Reactions: No Reported Reaction Past Psychological History: Anxiety Smoking Status: Never smoker Past Alcohol Use History: None Reported Past Drug Use History: None Reported - Past Family History Mother Family Medical History: Cancer Additional Family Medical History / Comment(s): . Father Family Medical History: Cancer Additional Family Medical History / Comment(s): prostate General Exam Limitations: no limitations General appearance: alert, in no apparent distress Head exam: Present: atraumatic, normocephalic, normal inspection Eye exam: Present: normal appearance, PERRL, EOMI. Absent: scleral icterus, conjunctival injection, periorbital swelling ENT exam: Present: normal exam, mucous membranes moist Neck exam: Present: normal inspection. Absent: tenderness, meningismus, lymphadenopathy Respiratory exam: Present: normal lung sounds bilaterally. Absent: respiratory distress, wheezes, rales, rhonchi, stridor Cardiovascular Exam: Present: regular rate, normal rhythm, normal heart sounds. Absent: systolic murmur, diastolic murmur, rubs, gallop, clicks GI/Abdominal exam: Present: soft, normal bowel sounds. Absent: distended, tenderness, guarding, rebound, rigid Extremities exam: Present: normal inspection, full ROM, normal capillary refill. Absent: tenderness, pedal edema, joint swelling, calf tenderness Back exam: Present: normal inspection Neurological exam: Present: alert, oriented X3, CN II-XII intact Psychiatric exam: Present: normal affect, normal mood Skin exam: Present: warm, dry, intact, normal color. Absent: rash Course Vital Signs 07/20/22 07/20/22 07/20/22 17:00 17:08 17:32 Temperature 98.7 F Pulse Rate 74 67 Pulse Rate [ 68 [place] Weaver ] Respiratory 18 18 Rate Blood Pressure 200/87 188/60 O2 Sat by Pulse 95 98 Oximetry 07/20/22 07/20/22 19:01 19:47 Temperature Pulse Rate 65 61 Pulse Rate [ Axminster Weaver ] Respiratory 18 18 Rate Blood Pressure 189/92 176/90 O2 Sat by Pulse 98 96 Oximetry Chest Pain MDM - MDM Was pt. sent in by a medical professional or institution (, PA, ENVIRONMENTAL COMMUNICATIONS SPECIALIST, urgent care, hospital, or halfway...) When possible be specific @ -No Did you speak to anyone other than the patient for history (EMS, parent, family, police, friend...)? What history was obtained from this source @ -No Did you review nursing and triage notes (agree or disagree)? Why? @ -I reviewed and agree with nursing and triage notes Were old charts reviewed (outside hosp., previous admission, EMS record, old EKG, old radiological studies, urgent care reports/EKG's, halfway records)? Report findings @ -No old charts were reviewed Differential Diagnosis (chest pain, altered mental status, abdominal pain women, abdominal pain men, vaginal bleeding, weakness, fever, dyspnea, syncope, heada tyler, dizziness, GI bleed, back pain, seizure, CVA, palpatations, mental health, musculoskeletal)? @ -ACS, NSTEMI, STEMI, pleurisy, htn emergency EKG interpreted by me (3pts min.). @ -As above X-rays interpreted by me (1pt min.). @ -yes CT interpreted by me (1pt min.). @ -None done U/S interpreted by me (1pt. min.). @ -None done What testing was considered but not performed or refused? (CT, X-rays, U/S, lab s)? Why? @ -None What meds were considered but not given or refused? Why? @ -None Did you discuss the management of the patient with other professionals (professionals i.e. , PA, ENVIRONMENTAL COMMUNICATIONS SPECIALIST, lab, RT, psych nurse, social studies department chair, unemployment insurance hearing officer, teacher, information officer, window caser)? Give summary @ -Admitting team - ladi midlevel Was smoking cessation discussed for >3mins.? @ -No Was critical care preformed (if so, how long)? @ -No Were there social determinants of health that impacted care today? How? (Homelessness, low income, unemployed, alcoholism, drug addiction, transportation, low edu. Level, literacy, decrease access to med. care, residential, rehab)? @ -No Was there de-escalation of care discussed even if they declined (Discuss DNR or withdrawal of care, Hospice)? DNR status @ -No What co-morbidities impacted this encounter? (DM, HTN, Smoking, COPD, CAD, Cancer, CVA, ARF, Chemo, Hep., AIDS, mental health diagnosis, sleep apnea, morbid obesity)? @ -htn Was patient admitted / discharged? Hospital course, mention meds given and route, prescriptions, significant lab abnormalities, going to OR and other pertinent info. @ -Arrival patient was placed into room 15. Thorough history and physical exam is performed. Patient placed on continuous pulse ox and cardiac monitoring. Laboratory studies are conducted and reviewed. Magnesium continues to be low at 1.3. Sodium mildly low at 132 however patient appears to have volume overload and is refusing any type of diuretic. She is given her home medications for high blood pressure. Chest x-ray demonstrates chronic pulmonary venous decompensation without overt failure. Discuss results with the patient. Due to hypertension and chest pain she will be admitted with cardiology to consult. Patient was agreeable to this. Transferred to the floor in stable condition. Spoke with Ladi from [facility] for admission Undiagnosed new problem with uncertain prognosis? @ -No Drug Therapy requiring intensive monitoring for toxicity (Heparin, Nitro, Insulin, Cardizem)? @ -No Were any procedures done? @ -No Diagnosis/symptom? @ -acute chest pain, accelerated htn, hypomag Acute, or Chronic, or Acute on Chronic? @ -acute Uncomplicated (without systemic symptoms) or Complicated (systemic symptoms)? @ -complicated Side effects of treatment? @ -No Exacerbation, Progression, or Severe Exacerbation? @ -No Poses a threat to life or bodily function? How? (Chest pain, [place], [place], pneumonia, PE, COPD, DKA, ARF, appy, cholecystitis, CVA, Diverticulitis, Homicidal, Suicidal, threat to staff... and all critical care pts) @ -yes Disposition Clinical Impression: Chest pain, Hypomagnesemia, Hypertension Disposition: ADMITTED IP TO THIS [facility] Condition: Stable Is patient prescribed a controlled substance at d/c from ED?: No Time of Disposition: 19:15 Decision to Admit Reason: Admit from EC Decision Date: 07/20/22 Decision Time: 19:15
--- NOTE | 2022-07-20 17:47 | XR ---
EXAMINATION TYPE: XR chest 2V DATE OF EXAM: 07/20/2022 COMPARISON: 06/14/2022 HISTORY: Shortness of breath TECHNIQUE: Frontal and lateral views of the chest are obtained. FINDINGS: Scattered senescent parenchymal changes noted. Hyperinflation compatible with COPD. No evidence for infiltrate. No evidence for atelectasis. Chronic pulmonary venous decompensation with out overt failure. Scattered granulomas suggested. Heart size is stable. Mediastinal structures are stable and grossly unremarkable. No evidence for hilar prominence. Degenerative changes dorsal spine. IMPRESSION: 1. Chronic pulmonary venous decompensation without overt failure. Scattered granulomas suggested.
[2022-07-20 17:50] LABS: Basophils # (A) 0.1 k/uL (0-0.2); Basophils % (A) 1 %; Eosinophils # (A) 0.2 k/uL (0-0.7); Eosinophils % (A) 2 %; HCT 37.1 % (34.0-46.0); HGB 12.3 gm/dL (11.4-16.0); Lymphocytes # (A) 2.2 k/uL (1.0-4.8); Lymphocytes % (A) 24 %; MCH 30.3 pg (25.0-35.0); MCV 91.6 fL (80.0-100.0); Mean Platelet Volume 8.2; Monocytes # (A) 0.7 k/uL (0-1.0); Monocytes % (A) 7 %; Neutrophils # (A) 5.6 k/uL (1.3-7.7); Neutrophils % (A) 62 %; Platelet Count 324 k/uL (150-450); RBC 4.05 m/uL (3.80-5.40)
[2022-07-20 18:02] LABS: Partial Thromboplastin Time 25.8 sec (22.0-30.0); Prothrombin Time 10.4 sec (9.0-12.0)
[2022-07-20 18:07] LABS: Glucose,Whole Blood 174 mg/dL (70-110)
[2022-07-20 18:09] LABS: ALT 35 U/L (4-34); AST 57 U/L (14-36); African American GFR (CKD) >90 (>60 ml/min/1.73 sqM); Albumin 3.7 g/dL (3.5-5.0); Alkaline Phosphatase 287 U/L (38-126); Anion Gap 8 mmol/L; Blood Urea Nitrogen 15 mg/dL (7-17); Calcium 9.9 mg/dL (8.4-10.2); Carbon Dioxide 30 mmol/L (22-30); Chloride 94 mmol/L (98-107); Glucose 187 mg/dL (74-99); Lipase 111 U/L (23-300); Magnesium 1.3 mg/dL (1.6-2.3); Non-African American GFR(CKD) 86 (>60 ml/min/1.73 sqM); Potassium 5.4 mmol/L (3.5-5.1); Sodium 132 mmol/L (137-145); Total Bilirubin 0.7 mg/dL (0.2-1.3); Total Protein 7.5 g/dL (6.3-8.2)
[2022-07-20] MEDS ORDERED: NALOXONE 0.4 MG/ML 1 ML VIAL IV PRN (19:15)
[2022-07-20] MEDS: MAGNESIUM SULFATE-D5W PMX 1 GM in DEXTROSE/WATER 1 100ML.BAG IVPB SCH ×2 (19:45→21:48)
[2022-07-20] MEDS ORDERED: ALPRAZolam 0.25 MG TAB PO STA (20:18)
[2022-07-20] MEDS: ALPRAZolam 0.25 MG TAB PO SCH (20:18)
[2022-07-20] MEDS: metFORMIN 500 MG TAB PO SCH (20:28)
[2022-07-20] MEDS: cloNIDine HCL 0.1 MG TAB PO SCH (20:29)
[2022-07-20] MEDS: PANTOPRAZOLE 40 MG TABLET PO SCH (20:29)
[2022-07-20] MEDS: atenoloL 50 MG TAB PO SCH (20:29)
[2022-07-20] MEDS ORDERED: NON FORMULARY DRUG (Insulin Glargine,Hum.Rec.Anlog [Lantus Solostar Pen] 100 UNIT/ML Insul SQ SCH (21:00)
[2022-07-20 23:12] LABS: Glucose,Whole Blood 341 mg/dL (70-110)
[2022-07-21] MEDS: INSULIN DETEMIR (LEVEMIR) 100 UNIT/ML SYR SQ SCH ×3 (00:09→20:26)
[2022-07-21] MEDS ORDERED: hydrALAZINE HCL 20 MG/ML 1 ML VIAL IVP PRN (03:39)
[2022-07-21 06:28] LABS: Glucose,Whole Blood 126 mg/dL (70-110)
[2022-07-21] MEDS: INSULIN ASPART (NovoLOG) 100 UNIT/ML VIAL SQ SCH ×4 (06:30→20:26)
[2022-07-21] MEDS: atenoloL 50 MG TAB PO SCH ×2 (06:41→18:01)
[2022-07-21] MEDS: ALPRAZolam 0.25 MG TAB PO SCH ×2 (06:41→18:01)
[2022-07-21] MEDS ORDERED: amLODIPine 5 MG TAB PO SCH (09:00)
[2022-07-21] MEDS: PIOGLITAZONE 30 MG TAB PO SCH (10:24)
[2022-07-21] MEDS: LOSARTAN 50 MG TAB PO SCH (10:24)
[2022-07-21] MEDS ORDERED: Magnesium Replacement Protocol 1 EACH MISC MISCELLANE PRN (10:38)
[2022-07-21] MEDS ORDERED: ONDANSETRON 4 MG/2 ML VIAL IVP PRN (10:40)
[2022-07-21] MEDS ORDERED: HYDROcodone/APAP 5-325MG 1 EACH TAB PO PRN (10:40)
[2022-07-21] MEDS ORDERED: ACETAMINOPHEN TAB 325 MG TAB PO PRN (10:40)
[2022-07-21 10:44] LABS: Basophils # (A) 0.1 k/uL (0-0.2); Basophils % (A) 1 %; Eosinophils # (A) 0.2 k/uL (0-0.7); Eosinophils % (A) 2 %; HCT 34.9 % (34.0-46.0); HGB 11.2 gm/dL (11.4-16.0); Lymphocytes # (A) 2.5 k/uL (1.0-4.8); Lymphocytes % (A) 26 %; MCH 29.6 pg (25.0-35.0); MCHC 32.1 g/dL (31.0-37.0); Mean Platelet Volume 8.5; Monocytes # (A) 0.8 k/uL (0-1.0); Monocytes % (A) 8 %; Neutrophils # (A) 5.8 k/uL (1.3-7.7); Neutrophils % (A) 61 %; Platelet Count 323 k/uL (150-450); RBC 3.79 m/uL (3.80-5.40); WBC 9.5 k/uL (3.8-10.6)
--- NOTE | 2022-07-21 10:55 | P.CRDCN ---
History of Present Illness History of present illness: no cardiology HISTORY OF PRESENT ILLNESS: This is a 77-year-old female with a past medical history significant for hypertension and diabetes. 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 We have been asked to see the patient in consultation for elevated blood pressure. Patient examined at the bedside. Patient states yesterday she checked her blood pressure home and was found to be significantly elevated. She presented to the emergency room for further evaluation. Patient's blood pressure was found to be from elevated with a reading of 200/87. The patient states she has been having ongoing issues with blood pressure management over the past several months. She states that around last year she was switched from lisinopril to losartan. That was the last medication change that she had made to her antihypertensive regimen. She states in the past she was on diuretics but it affected her kidneys and she is hesitant to be placed on these again. Patient's blood pressure has improved since coming to the hospital. Patient currently denies chest pain or pressure. She denies shortness of breath. * EKG reveals sinus mechanism with no signs of acute ischemia * Chest xray chronic pulmonary venous decompensation without overt failure. * Laboratory data: WBC 9.5. Hemoglobin 11.2. Platelet count 323. Sodium 132. Potassium 5.4. BUN 15. Creatinine 0.65. Troponin negative 3. ProBNP 376. * Current home cardiac medications include losartan 100 mg daily, atenolol 50 mg twice a day, clonidine 0.2 mg at night REVIEW OF SYSTEMS: At the time of my exam: CONSTITUTIONAL: Denies fever or chills. HEENT: Denies blurred vision, vision changes, or eye pain. Denies hemoptysis CARDIOVASCULAR: Denies chest pain. Denies orthopnea. Denies PND. Denies palpitations RESPIRATORY: Denies shortness of breath. GASTROINTESTINAL: Denies abdominal pain. Denies nausea or vomiting. HEMATOLOGIC: Denies bleeding disorders. GENITOURINARY: Denies any blood in urine. SKIN: Denies pruitis. Denies rash. PHYSICAL EXAM: VITAL SIGNS: Reviewed. GENERAL: Well-developed in no acute distress. HEENT: Head is normocephalic. Pupils are equal, round. Sclerae anicteric. Mucous membranes of the mouth are moist. Neck supple. No JVD or thyromegaly LUNGS: Respirations even and unlabored. Lungs essentially clear to auscultation bilaterally. HEART: Regular rate and rhythm. S1 and S2 heard. ABDOMEN: Soft. Nondistended. Nontender. EXTREMITIES: Normal range of motion. No clubbing or cyanosis. Peripheral puls es intact. No lower extremity edema NEUROLOGIC: Awake and alert. Oriented x 3. ASSESSMENT: Hypertensive urgency, improving Diabetes Morbid obesity Hypomagnesemia PLAN: Obtain 2-D echo to assess cardiac structure and function Resume home cardiac medications Add amlodipine 5 mg daily for optimal blood pressure control Patient hesitant to take any type of diuretics that she has had issues with acute kidney injury in the past Begin secondary hypertensive workup. Labs ordered. Patient to have renal artery US performed outpatient May be discharged home this afternoon if patient's blood pressure remains stable She is to follow up on an outpatient basis with Dr. Bishop Nurse practitioner note has been reviewed by physician. Signing provider agrees with the documented findings, assessment, and plan of care. Past Medical History Past Medical History: Asthma, Diabetes Mellitus, GERD/Reflux, Hyperlipidemia, Hypertension Additional Past Medical History / Comment(s): Zenker's diverticulum, hemrroids History of Any Multi-Drug Resistant Organisms: None Reported Past Surgical History: Cholecystectomy, Hysterectomy, Orthopedic Surgery, Tonsillectomy, Tubal Ligation Additional Past Surgical History / Comment(s): right knee. right and left cataract. Past Anesthesia/Blood Transfusion Reactions: No Reported Reaction Smoking Status: Never smoker - Past Family History Mother Family Medical History: Cancer Additional Family Medical History / Comment(s): . Father Family Medical History: Cancer Additional Family Medical History / Comment(s): prostate Medications and Allergies Home Medications Medication Instructions Recorded Confirmed Type Pioglitazone [Actos] 30 mg PO DAILY 03/11/16 07/20/22 History atenoloL [Tenormin] 50 mg PO BID-W/MEALS 03/11/16 07/20/22 History metFORMIN HCL [Glucophage] 1,000 mg PO W/SUPPER 03/11/16 07/20/22 History cloNIDine HCL [Catapres] 0.2 mg PO HS tab 03/28/16 07/20/22 Rx ALPRAZolam [Xanax] 0.125 mg PO BID-W/MEALS 10/02/16 07/20/22 History Insulin Glargine,Hum.rec.anlog 1 dose SQ HS 10/24/16 07/20/22 History [Lantus Solostar] Pantoprazole [Protonix] 40 mg PO W/SUPPER 12/19/21 07/20/22 History Losartan Potassium 100 mg PO DAILY #14 tablet 12/23/21 07/20/22 Rx Allergies Allergy/AdvReac Type Severity Reaction Status Date / Time cephalexin Allergy Unknown Verified 07/20/22 18:51 ciprofloxacin [From Cipro] Allergy Anaphylaxis Verified 07/20/22 18:51 codeine Allergy Chest Pain Verified 07/20/22 18:51 diclofenac Allergy Anaphylaxis Verified 07/20/22 18:51 difluprednate [From Durezol] Allergy Anaphylaxis Verified 07/20/22 18:51 dog dander Allergy Unknown Verified 07/20/22 18:51 doxycycline [From Vibramycin] Allergy Unknown Verified 07/20/22 18:51 epinephrine Allergy Unknown Verified 07/20/22 18:51 erythromycin base Allergy Unknown Verified 07/20/22 18:51 Fish Containing Products Allergy Anaphylaxis Verified 07/20/22 18:51 latex Allergy Anaphylaxis Verified 07/20/22 18:51 metronidazole [From Flagyl] Allergy Anaphylaxis Verified 07/20/22 18:51 mold Allergy Unknown Verified 07/20/22 18:51 nepafenac Allergy Anaphylaxis Verified 07/20/22 18:51 ofloxacin [From Floxin] Allergy Anaphylaxis Verified 07/20/22 18:51 Penicillins Allergy Unknown Verified 07/20/22 18:51 Childhood shellfish derived [Shellfish] Allergy Anaphylaxis Verified 07/20/22 18:51 strawberry Allergy Burning & Verified 07/20/22 18:51 swelling Thiazides Allergy Unknown Verified 07/20/22 18:51 tomato AdvReac Mild Unknown Verified 07/20/22 18:51 Childhood bandages Allergy Unknown Uncoded 07/20/22 18:51 dust Allergy Unknown Uncoded 07/20/22 18:51 seafood Allergy Anaphylaxis Uncoded 07/20/22 18:51 Physical Exam Vitals: Vital Signs Temp Pulse Pulse Resp BP BP Pulse Ox 07/21/22 04:37 149/68 07/21/22 03:31 98.6 F 65 16 184/76 95 07/20/22 23:30 97.3 F L 68 17 167/72 96 07/20/22 21:53 97.8 F 66 15 170/78 94 L 07/20/22 19:47 61 18 176/90 96 07/20/22 19:01 65 18 189/92 98 07/20/22 17:32 67 18 188/60 98 07/20/22 17:08 68 07/20/22 17:00 98.7 F 74 18 200/87 95 Intake and Output 07/20/22 07/21/22 07/21/22 22:59 06:59 14:59 Intake Total 100 Output Total 550 Balance 100 -550 Intake: Intake, IV Titration 100 Amount Magnesium Sulfate-D5w Pmx 100 1 gm In Dextrose/Water 1 100ml.bag @ 100 mls/hr IVPB Q1H [facility] Rx#: [id number] Output: Urine 550 Other: Voiding Method Toilet # Voids 2 Weight 108.862 kg Results 07/21/22 08:55 07/20/22 17:28 Cardiac Enzymes 07/20/22 07/20/22 07/20/22 Range/Units 17:28 17:28 21:11 AST 57 H (14-36) U/L Troponin I <0.012 0.027 (0.000-0.034) ng/mL 07/20/22 Range/Units 23:54 AST (14-36) U/L Troponin I 0.022 (0.000-0.034) ng/mL Coagulation 07/20/22 Range/Units 17:28 PT 10.4 (9.0-12.0) sec APTT 25.8 (22.0-30.0) sec CBC 07/20/22 Range/Units 17:28 WBC 9.0 (3.8-10.6) k/uL RBC 4.05 (3.80-5.40) m/uL Hgb 12.3 (11.4-16.0) gm/dL Hct 37.1 (34.0-46.0) % Plt Count 324 (150-450) k/uL Comprehensive Metabolic Panel 07/20/22 Range/Units 17:28 Sodium 132 L (137-145) mmol/L Potassium 5.4 H (3.5-5.1) mmol/L Chloride 94 L (98-107) mmol/L Carbon Dioxide 30 (22-30) mmol/L BUN 15 (7-17) mg/dL Creatinine 0.65 (0.52-1.04) mg/dL Glucose 187 H (74-99) mg/dL Calcium 9.9 (8.4-10.2) mg/dL AST 57 H (14-36) U/L ALT 35 H (4-34) U/L Alkaline Phosphatase 287 H (38-126) U/L Total Protein 7.5 (6.3-8.2) g/dL Albumin 3.7 (3.5-5.0) g/dL Current Medications Generic Name Dose Route Start Last Admin Trade Name Freq PRN Reason Stop Dose Admin Alprazolam 0.125 mg 07/20/22 20:15 07/21/22 06:41 Alprazolam 0.25 Mg Tab PO 0.125 mg BID-W/MEALS [facility] Administration Atenolol 50 mg 07/20/22 20:15 07/21/22 06:41 Atenolol 50 Mg Tab PO 50 mg BID-W/MEALS [facility] Administration Clonidine 0.2 mg 07/20/22 21:00 07/20/22 20:29 Clonidine Hcl 0.1 Mg Tab PO 0.2 mg HS [facility] Administration Hydralazine HCl 10 mg 07/21/22 03:39 07/21/22 03:47 Hydralazine Hcl 20 Mg/Ml 1 Ml Vial IVP 10 mg Q4HR PRN Administration Blood Pressure - High Insulin Aspart 0 unit 07/21/22 07:30 07/21/22 06:30 Insulin Aspart (Novolog) 100 Unit/Ml Vial SQ Not Given ACHS [facility] Protocol Insulin Detemir 10 unit 07/20/22 23:45 07/21/22 06:29 Insulin Detemir (Levemir) 100 Unit/Ml Syr SQ Not Given BID@0700,2100 [facility] Losartan Potassium 100 mg 07/21/22 09:00 Losartan 50 Mg Tab PO DAILY [facility] Metformin HCl 1,000 mg 07/20/22 20:15 07/20/22 20:28 Metformin 500 Mg Tab PO 1,000 mg W/SUPPER [facility] Administration Naloxone HCl 0.2 mg 07/20/22 19:15 Naloxone 0.4 Mg/Ml 1 Ml Vial IV Q2M PRN Opioid Reversal Pantoprazole Sodium 40 mg 07/20/22 20:15 07/20/22 20:29 Pantoprazole 40 Mg Tablet PO 40 mg W/SUPPER [facility] Administration Pioglitazone HCl 30 mg 07/21/22 09:00 Pioglitazone 30 Mg Tab PO DAILY [facility] Intake and Output 07/20/22 07/21/22 07/21/22 22:59 06:59 14:59 Intake Total 100 Output Total 550 Balance 100 -550 Intake: Intake, IV Titration 100 Amount Magnesium Sulfate-D5w Pmx 100 1 gm In Dextrose/Water 1 100ml.bag @ 100 mls/hr IVPB Q1H [facility] Rx#: [id number] Output: Urine 550 Other: Voiding Method Toilet # Voids 2 Weight 108.862 kg 07/20/22 17:28 07/20/22 17:28
[2022-07-21 12:09] LABS: African American GFR (CKD) >90 (>60 ml/min/1.73 sqM); Anion Gap 6 mmol/L; Blood Urea Nitrogen 16 mg/dL (7-17); Calcium 9.5 mg/dL (8.4-10.2); Carbon Dioxide 29 mmol/L (22-30); Chloride 93 mmol/L (98-107); Glucose 252 mg/dL (74-99); Non-African American GFR(CKD) 84 (>60 ml/min/1.73 sqM); Potassium 4.8 mmol/L (3.5-5.1); Sodium 128 mmol/L (137-145)
[2022-07-21] MEDS: ASPIRIN 81 MG PO SCH (12:54)
[2022-07-21] MEDS: MAG HYDROX/AL HYDROX/SIMETH 30 ML CUP PO SCH ×3 (12:54→20:47)
[2022-07-21] MEDS: SIMETHICONE 80 MG CHEWABLE PO SCH ×3 (12:54→20:47)
[2022-07-21] MEDS: MAGNESIUM SULFATE-D5W PMX 1 GM in DEXTROSE/WATER 1 100ML.BAG IVPB SCH ×2 (12:58→14:43)
--- NOTE | 2022-07-21 13:12 | P.HPIM ---
History of Present Illness H&P Date: 07/21/22 Chief Complaint: Chest pain * 69-year-old lady with past medical history significant for hypertension, diabetes mellitus, history of duodenal ulcer presented to the emergency department with complaints of chest pain as well as noted to have elevated blood pressure. * Patient was evaluated in ER and was admitted for further management. As observation. Vision had EKG done which showed sinus rhythm and no evidence of ischemia. * Chest x-ray obtained in ER shows pulmonary vascular congestion * Lab work obtained showed normal white cell count, patient was noted to have low sodium of 128, troponin within normal limits, cortisol within normal limits * Magnesium at the time of presentation was noted to be critically low at 1.3 * Cardiology has been consulted and patient was placed on medical floor for further management * Patient also complained of postprandial pain slowly raising suspicion for gastrointestinal etiology. Lipase was checked which was within normal limits Review of Systems REVIEW OF SYSTEMS: NEGATIVE EXCEPT FOR epigastric discomfort CONSTITUTIONAL: No fever, no malaise, no fatigue. HEENT: No recent visual problems or hearing problems. Denied any sore throat. CARDIOVASCULAR: No chest pain, orthopnea, PND, no palpitations, no syncope. PULMONARY: No shortness of breath, no cough, no hemoptysis. GASTROINTESTINAL: No diarrhea, no nausea, no vomiting, no abdominal pain. NEUROLOGICAL: No headaches, no weakness, no numbness. HEMATOLOGICAL: Denies any bleeding or petechiae. GENITOURINARY: Denies any burning micturition, frequency, or urgency. MUSCULOSKELETAL/RHEUMATOLOGICAL: Denies any joint pain, swelling, or any muscle pain. ENDOCRINE: Denies any polyuria or polydipsia. Past Medical History Past Medical History: Asthma, Diabetes Mellitus, GERD/Reflux, Hyperlipidemia, Hypertension Additional Past Medical History / Comment(s): Zenker's diverticulum, hemrroids History of Any Multi-Drug Resistant Organisms: None Reported Past Surgical History: Cholecystectomy, Hysterectomy, Orthopedic Surgery, Tonsillectomy, Tubal Ligation Additional Past Surgical History / Comment(s): right knee. right and left cataract. Past Anesthesia/Blood Transfusion Reactions: No Reported Reaction Smoking Status: Never smoker - Past Family History Mother Family Medical History: Cancer Additional Family Medical History / Comment(s): . Father Family Medical History: Cancer Additional Family Medical History / Comment(s): prostate Medications and Allergies Home Medications Medication Instructions Recorded Confirmed Type Pioglitazone [Actos] 30 mg PO DAILY 03/11/16 07/20/22 History atenoloL [Tenormin] 50 mg PO BID-W/MEALS 03/11/16 07/20/22 History metFORMIN HCL [Glucophage] 1,000 mg PO W/SUPPER 03/11/16 07/20/22 History cloNIDine HCL [Catapres] 0.2 mg PO HS tab 03/28/16 07/20/22 Rx ALPRAZolam [Xanax] 0.125 mg PO BID-W/MEALS 10/02/16 07/20/22 History Insulin Glargine,Hum.rec.anlog 1 dose SQ HS 10/24/16 07/20/22 History [Lantus Solostar] Pantoprazole [Protonix] 40 mg PO W/SUPPER 12/19/21 07/20/22 History Losartan Potassium 100 mg PO DAILY #14 tablet 12/23/21 07/20/22 Rx Allergies Allergy/AdvReac Type Severity Reaction Status Date / Time cephalexin Allergy Unknown Verified 07/20/22 18:51 ciprofloxacin [From Cipro] Allergy Anaphylaxis Verified 07/20/22 18:51 codeine Allergy Chest Pain Verified 07/20/22 18:51 diclofenac Allergy Anaphylaxis Verified 07/20/22 18:51 difluprednate [From Durezol] Allergy Anaphylaxis Verified 07/20/22 18:51 dog dander Allergy Unknown Verified 07/20/22 18:51 doxycycline [From Vibramycin] Allergy Unknown Verified 07/20/22 18:51 epinephrine Allergy Unknown Verified 07/20/22 18:51 erythromycin base Allergy Unknown Verified 07/20/22 18:51 Fish Containing Products Allergy Anaphylaxis Verified 07/20/22 18:51 latex Allergy Anaphylaxis Verified 07/20/22 18:51 metronidazole [From Flagyl] Allergy Anaphylaxis Verified 07/20/22 18:51 mold Allergy Unknown Verified 07/20/22 18:51 nepafenac Allergy Anaphylaxis Verified 07/20/22 18:51 ofloxacin [From Floxin] Allergy Anaphylaxis Verified 07/20/22 18:51 Penicillins Allergy Unknown Verified 07/20/22 18:51 Childhood shellfish derived [Shellfish] Allergy Anaphylaxis Verified 07/20/22 18:51 strawberry Allergy Burning & Verified 07/20/22 18:51 swelling Thiazides Allergy Unknown Verified 07/20/22 18:51 tomato AdvReac Mild Unknown Verified 07/20/22 18:51 Childhood bandages Allergy Unknown Uncoded 07/20/22 18:51 dust Allergy Unknown Uncoded 07/20/22 18:51 seafood Allergy Anaphylaxis Uncoded 07/20/22 18:51 Physical Exam Vitals: Vital Signs Temp Pulse Pulse Resp BP BP Pulse Ox 07/21/22 04:37 149/68 07/21/22 03:31 98.6 F 65 16 184/76 95 07/20/22 23:30 97.3 F L 68 17 167/72 96 07/20/22 21:53 97.8 F 66 15 170/78 94 L 07/20/22 19:47 61 18 176/90 96 07/20/22 19:01 65 18 189/92 98 07/20/22 17:32 67 18 188/60 98 07/20/22 17:08 68 07/20/22 17:00 98.7 F 74 18 200/87 95 Intake and Output 07/20/22 07/21/22 07/21/22 22:59 06:59 14:59 Intake Total 100 Output Total 550 200 Balance 100 -550 -200 Intake: Intake, IV Titration 100 Amount Magnesium Sulfate-D5w Pmx 100 1 gm In Dextrose/Water 1 100ml.bag @ 100 mls/hr IVPB Q1H [facility] Rx#: [id number] Output: Urine 550 200 Other: Voiding Method Toilet # Voids 2 Weight 108.862 kg PHYSICAL EXAMINATION: GENERAL: The patient is alert and oriented x3, not in any acute distress. Well developed, well nourished. HEENT: Pupils are round and equally reacting to light. EOMI. No scleral icterus. No conjunctival pallor. Normocephalic, atraumatic. No pharyngeal erythema. No thyromegaly. CARDIOVASCULAR: S1 and S2 present. No murmurs, rubs, or gallops. PULMONARY: Chest is clear to auscultation, no wheezing or crackles. ABDOMEN: Soft, nontender, nondistended, normoactive bowel sounds. No palpable organomegaly. MUSCULOSKELETAL: No joint swelling or deformity. EXTREMITIES: No cyanosis, clubbing, or pedal edema. NEUROLOGICAL: Gross neurological examination did not reveal any focal deficits. SKIN: No rashes. Results CBC & Chem 7: 07/21/22 08:55 07/21/22 11:37 Labs: Abnormal Lab Results - Last 24 Hours (Table) 07/20/22 07/20/22 07/20/22 Range/Units 17:28 18:05 23:10 RBC (3.80-5.40) m/uL Hgb (11.4-16.0) gm/dL Sodium 132 L (137-145) mmol/L Potassium 5.4 H (3.5-5.1) mmol/L Chloride 94 L (98-107) mmol/L Glucose 187 H (74-99) mg/dL POC Glucose (mg/dL) 174 H 341 H (70-110) mg/dL Magnesium 1.3 L (1.6-2.3) mg/dL AST 57 H (14-36) U/L ALT 35 H (4-34) U/L Alkaline Phosphatase 287 H (38-126) U/L 07/21/22 07/21/22 07/21/22 Range/Units 06:26 08:55 11:37 RBC 3.79 L (3.80-5.40) m/uL Hgb 11.2 L (11.4-16.0) gm/dL Sodium 128 L (137-145) mmol/L Potassium (3.5-5.1) mmol/L Chloride 93 L (98-107) mmol/L Glucose 252 H (74-99) mg/dL POC Glucose (mg/dL) 126 H (70-110) mg/dL Magnesium (1.6-2.3) mg/dL AST (14-36) U/L ALT (4-34) U/L Alkaline Phosphatase (38-126) U/L Thrombosis Risk Factor Assmnt - Choose All That Apply Any of the Below Risk Factors Present?: Yes Each Factor Represents 1 point: Obesity (BMI >25) Other Risk Factors: Yes Each Risk Factor Represents 3 Points: Age 75 years or older Other congenital or acquired thrombophilia - If yes, enter type in comment: No Thrombosis Risk Factor Assessment Total Risk Factor Score: 4 Thrombosis Risk Factor Assessment Level: Moderate Risk Assessment and Plan Assessment: Assessment * Chest pain with hypertensive urgency * Diabetes mellitus type 2 * Electrode abnormality with hyponatremia and hypomagnesemia * Gastroesophageal reflux disease with history of duodenal ulcer Plan * Serial troponins ordered, continue aspirin * Continue amlodipine, atenolol, clonidine, losartan * In regards to her diabetes mellitus Accu-Cheks before meals at bedtime continue patient on metformin and correctional insulin * Continue patient on Protonix, started on Maalox and simethicone * Workup ordered by cardiology including an echocardiogram * CODE STATUS is full code * SCDs for DVT prophylaxis
[2022-07-21 16:26] LABS: Glucose,Whole Blood 273 mg/dL (70-110)
[2022-07-21] MEDS: metFORMIN 500 MG TAB PO SCH (18:01)
[2022-07-21] MEDS: PANTOPRAZOLE 40 MG TABLET PO SCH (18:01)
[2022-07-21 20:03] LABS: Glucose,Whole Blood 197 mg/dL (70-110)
[2022-07-21] MEDS: cloNIDine HCL 0.1 MG TAB PO SCH (20:27)
[2022-07-21] MEDS: hydrALAZINE HCL 20 MG/ML 1 ML VIAL IVP PRN (20:46)
[2022-07-22] MEDS: hydrALAZINE HCL 20 MG/ML 1 ML VIAL IVP PRN (03:43)
[2022-07-22 06:11] LABS: Glucose,Whole Blood 113 mg/dL (70-110)
[2022-07-22] MEDS: INSULIN ASPART (NovoLOG) 100 UNIT/ML VIAL SQ SCH ×4 (06:23→20:46)
[2022-07-22] MEDS: ALPRAZolam 0.25 MG TAB PO SCH ×2 (06:39→18:01)
[2022-07-22] MEDS: INSULIN DETEMIR (LEVEMIR) 100 UNIT/ML SYR SQ SCH ×2 (06:39→20:46)
[2022-07-22] MEDS: atenoloL 50 MG TAB PO SCH ×2 (06:40→18:01)
[2022-07-22 06:55] LABS: HCT 35.1 % (34.0-46.0); HGB 11.6 gm/dL (11.4-16.0); MCH 30.1 pg (25.0-35.0); MCV 91.3 fL (80.0-100.0); Mean Platelet Volume 8.5; Platelet Count 402 k/uL (150-450); RBC 3.85 m/uL (3.80-5.40); RDW 14.2 % (11.5-15.5); WBC 11.5 k/uL (3.8-10.6)
[2022-07-22 07:20] LABS: African American GFR (CKD) >90 (>60 ml/min/1.73 sqM); Anion Gap 8 mmol/L; Blood Urea Nitrogen 14 mg/dL (7-17); Calcium 9.8 mg/dL (8.4-10.2); Carbon Dioxide 29 mmol/L (22-30); Chloride 95 mmol/L (98-107); Glucose 114 mg/dL (74-99); Magnesium 1.8 mg/dL (1.6-2.3); Non-African American GFR(CKD) 78 (>60 ml/min/1.73 sqM); Potassium 4.8 mmol/L (3.5-5.1); Sodium 132 mmol/L (137-145)
[2022-07-22] MEDS ORDERED: ENOXAPARIN 40 MG/0.4 ML SYRINGE SQ SCH (09:00)
[2022-07-22] MEDS ORDERED: amLODIPine 10 MG TAB PO SCH (09:00)
[2022-07-22] MEDS: MAG HYDROX/AL HYDROX/SIMETH 30 ML CUP PO SCH ×4 (09:18→22:16)
[2022-07-22] MEDS: PIOGLITAZONE 30 MG TAB PO SCH (09:18)
[2022-07-22] MEDS: cloNIDine HCL 0.1 MG TAB PO SCH ×2 (09:18→20:47)
[2022-07-22] MEDS: SIMETHICONE 80 MG CHEWABLE PO SCH ×4 (09:18→22:16)
[2022-07-22] MEDS: LOSARTAN 50 MG TAB PO SCH (09:18)
[2022-07-22] MEDS: ASPIRIN 81 MG PO SCH (09:19)
[2022-07-22 09:59] LABS: Glucose,Whole Blood 199 mg/dL (70-110)
[2022-07-22 11:52] LABS: Glucose,Whole Blood 191 mg/dL (70-110)
--- NOTE | 2022-07-22 12:27 | P.PN ---
Subjective Progress Note Date: 07/22/22 Principal diagnosis: Hypertension uncontrolled * Chest pain with hypertensive urgency * Diabetes mellitus type 2 * Electrode abnormality with hyponatremia and hypomagnesemia * Gastroesophageal reflux disease with history of duodenal ulcer Plan * On 07/22 [facility] secondary to need for IV antihypertensive medications for systolic blood pressure more than 200 * Serial troponins ordered which were negative. Continue medical management, patient receiving aspirin, cardiac medications adjusted by cardiology * Continue amlodipine, atenolol, clonidine, losartan, hydrochlorothiazide, hydralazine * In regards to her diabetes mellitus Accu-Cheks before meals at bedtime continue patient on metformin and correctional insulin * Continue patient on Protonix, started on Maalox and simethicone * Workup ordered by cardiology including an echocardiogram * CODE STATUS is full code * SCDs for DVT prophylaxis Objective - Vital Signs Vital signs: Vital Signs Temp 97.5 F L 07/22/22 09:05 Pulse 74 07/22/22 09:55 Resp 16 07/22/22 09:05 BP 168/79 07/22/22 09:55 Pulse Ox 95 07/22/22 09:05 FiO2 Intake & Output 07/21/22 07/22/22 07/22/22 18:59 06:59 18:59 Intake Total 118 20 250 Output Total 1100 1150 Balance -982 -1130 250 Intake: IV 20 10 Invasive Line 1 20 10 Oral 118 240 Output: Urine 1100 1150 Other: Voiding Method Toilet Toilet - Labs CBC & Chem 7: 07/22/22 05:58 07/22/22 05:58 Labs: Abnormal Lab Results - Last 24 Hours (Table) 07/21/22 07/21/22 07/22/22 Range/Units 16:24 20:00 05:58 WBC (3.8-10.6) k/uL Sodium 132 L (137-145) mmol/L Chloride 95 L (98-107) mmol/L Glucose 114 H (74-99) mg/dL POC Glucose (mg/dL) 273 H 197 H (70-110) mg/dL 07/22/22 07/22/22 07/22/22 Range/Units 05:58 06:10 09:57 WBC 11.5 H (3.8-10.6) k/uL Sodium (137-145) mmol/L Chloride (98-107) mmol/L Glucose (74-99) mg/dL POC Glucose (mg/dL) 113 H 199 H (70-110) mg/dL 07/22/22 Range/Units 11:49 WBC (3.8-10.6) k/uL Sodium (137-145) mmol/L Chloride (98-107) mmol/L Glucose (74-99) mg/dL POC Glucose (mg/dL) 191 H (70-110) mg/dL
--- NOTE | 2022-07-22 13:55 | P.PN ---
Subjective Progress Note Date: 07/22/22 HISTORY OF PRESENT ILLNESS: This is a 77-year-old female with a past medical history significant for hypertension and diabetes. Patient does not follow with a guest services manager. We have been asked to see the patient in consultation for elevated blood pressure. Patient examined at the bedside. Patient states yesterday she checked her blood pressure home and was found to be significantly elevated. She presented to the emergency room for further evaluation. Patient's blood pressure was found to be from elevated with a reading of 200/87. The patient states she has been having ongoing issues with blood pressure management over the past several months. She states that around last year she was switched from lisinopril to losartan. That was the last medication change that she had made to her antihypertensive regimen. She states in the past she was on diuretics but it affected her kidneys and she is hesitant to be placed on these again. Patient's blood pressure has improved since coming to the hospital. Patient currently denies chest pain or pressure. She denies shortness of breath. * EKG reveals sinus mechanism with no signs of acute ischemia * Chest xray chronic pulmonary venous decompensation without overt failure. * Laboratory data: WBC 9.5. Hemoglobin 11.2. Platelet count 323. Sodium 132. Potassium 5.4. BUN 15. Creatinine 0.65. Troponin negative 3. ProBNP 376. * Current home cardiac medications include losartan 100 mg daily, atenolol 50 mg twice a day, clonidine 0.2 mg at night 07/22 Echocardiogram has been obtained and report is pending. Yesterday, clonidine was increased to twice daily, amlodipine was added and increased to 10 mg and patient was continued on losartan at 100 mg daily. Her blood pressure this morning is still elevated at 168/79 but subsequently was at 125/68 after IV hydralazine. Long discussion with the patient regarding hydrochlorothiazide/lisinopril causing kidney trouble in the past. We are adding in hydrochlorothiazide and ID consult with nephrology. Repeat BMP ordered for tomorrow. PHYSICAL EXAM: VITAL SIGNS: Reviewed. GENERAL: Well-developed in no acute distress. HEENT: Head is normocephalic. Pupils are equal, round. Sclerae anicteric. Mucous membranes of the mouth are moist. Neck supple. No JVD or thyromegaly LUNGS: Respirations even and unlabored. Lungs essentially clear to auscultation bilaterally. HEART: Regular rate and rhythm. S1 and S2 heard. ABDOMEN: Soft. Nondistended. Nontender. EXTREMITIES: Normal range of motion. No clubbing or cyanosis. Peripheral pulses intact. No lower extremity edema NEUROLOGIC: Awake and alert. Oriented x 3. ASSESSMENT: Hypertensive urgency, improving Diabetes Morbid obesity Hypomagnesemia PLAN: Obtain 2-D echo to assess cardiac structure and function-report is pending Continue current blood pressure medications including clonidine 0.2 twice daily, atenolol 50 mg twice daily, amlodipine decreased to 5 mg daily, add hydrochlorothiazide 12.5 mg daily and add hydralazine 25 mg twice daily Patient hesitant to take any type of diuretics that she has had issues with acute kidney injury in the past Begin secondary hypertensive workup. Labs ordered. Patient to have renal artery US performed outpatient She is to follow up on an outpatient basis with Dr. Bishop Nurse practitioner note has been reviewed by physician. Signing provider agrees with the documented findings, assessment, and plan of care. Objective - Vital Signs Vital signs: Vital Signs Temp 98.2 F 07/22/22 03:30 Pulse 76 07/22/22 03:30 Resp 16 07/22/22 03:30 BP 160/71 07/22/22 05:33 Pulse Ox 95 07/22/22 03:30 FiO2 Intake & Output 07/21/22 07/22/22 07/22/22 18:59 06:59 18:59 Intake Total 118 20 240 Output Total 1100 1150 Balance -982 -1130 240 Intake: IV 20 Invasive Line 1 20 Oral 118 240 Output: Urine 1100 1150 Other: Voiding Method Toilet Toilet - Labs CBC & Chem 7: 07/22/22 05:58 07/22/22 05:58 Labs: Abnormal Lab Results - Last 24 Hours (Table) 07/21/22 07/21/22 07/21/22 Range/Units 08:55 11:37 16:24 WBC (3.8-10.6) k/uL RBC 3.79 L (3.80-5.40) m/uL Hgb 11.2 L (11.4-16.0) gm/dL Sodium 128 L (137-145) mmol/L Chloride 93 L (98-107) mmol/L Glucose 252 H (74-99) mg/dL POC Glucose (mg/dL) 273 H (70-110) mg/dL 07/21/22 07/22/22 07/22/22 Range/Units 20:00 05:58 05:58 WBC 11.5 H (3.8-10.6) k/uL RBC (3.80-5.40) m/uL Hgb (11.4-16.0) gm/dL Sodium 132 L (137-145) mmol/L Chloride 95 L (98-107) mmol/L Glucose 114 H (74-99) mg/dL POC Glucose (mg/dL) 197 H (70-110) mg/dL 07/22/22 Range/Units 06:10 WBC (3.8-10.6) k/uL RBC (3.80-5.40) m/uL Hgb (11.4-16.0) gm/dL Sodium (137-145) mmol/L Chloride (98-107) mmol/L Glucose (74-99) mg/dL POC Glucose (mg/dL) 113 H (70-110) mg/dL
[2022-07-22] MEDS: hydroCHLOROthiazide 12.5 MG CAP PO SCH (14:50)
[2022-07-22 16:23] LABS: Glucose,Whole Blood 181 mg/dL (70-110)
[2022-07-22] MEDS: metFORMIN 500 MG TAB PO SCH (18:01)
[2022-07-22] MEDS: PANTOPRAZOLE 40 MG TABLET PO SCH (18:01)
--- NOTE | 2022-07-22 18:10 | CA ---
Transthoracic Echo Report Name: Lorrie Betts Age: 77 Gender: F : 1945 Exam Date: 07/22/2022 08:32 Exam Location: [facility] Ht (in): 65 Wt (lb): 240 Ordering Physician: Laureen Mcfadden Attending/Referring Phys: [id number], Lesa Business Office Director Maurizio Mix RDCS Procedure CPT: Indications: LV function Cardiac Hx: Technical Quality: Fair Contrast 1: Total Dose (mL): Contrast 2: Total Dose (mL): MEASUREMENTS (Male / Female) Normal Values 2D ECHO LV Diastolic Diameter PLAX 5.1 cm 4.2 - 5.9 / 3.9 - 5.3 cm LV Systolic Diameter PLAX 3.3 cm IVS Diastolic Thickness 0.9 cm 0.6 - 1.0 / 0.6 - 0.9 cm LVPW Diastolic Thickness 1.0 cm 0.6 - 1.0 / 0.6 - 0.9 cm LV Relative Wall Thickness 0.4 RV Internal Dim ED PLAX 4.0 cm LA Volume 49.6 cm??? 18 - 58 / 22 - 52 cm??? M-MODE Aortic Root Diameter MM 2.4 cm AV Cusp Separation MM 1.5 cm DOPPLER AV Peak Velocity 149.3 cm/s AV Peak Gradient 8.9 mmHg LVOT Peak Velocity 103.0 cm/s LVOT Peak Gradient 4.2 mmHg MV Area PHT 3.9 cm??? Mitral E Point Velocity 125.9 cm/s Mitral A Point Velocity 84.9 cm/s Mitral E to A Ratio 1.5 MV Deceleration Time 193.9 ms TR Peak Velocity 344.5 cm/s TR Peak Gradient 47.5 mmHg Right Atrial Pressure 8.0 mmHg Pulmonary Artery Systolic Pressu 55.5 mmHg Right Ventricular Systolic Press 55.5 mmHg FINDINGS Left Ventricle Mildly increased posterior wall thickness. Left ventricular cavity size normal. Grade 2 diastolic dysfunction. Left ventricular ejection fraction is estimated at 55 %. Right Ventricle Mildly enlarged right ventricular size with mild hypertrophy. Normal right ventricular global systolic function. Moderate pulmonary hypertension. Right Atrium Normal right atrial size. Left Atrium Normal left atrial size. Mitral Valve Mild mitral regurgitation. Aortic Valve Trileaflet aortic valve. Tricuspid Valve Moderate tricuspid regurgitation. Pulmonic Valve Structurally normal pulmonic valve. Trace pulmonic regurgitation. Pericardium No pericardial or pleural effusion. Aorta Normal size aortic root and proximal ascending aorta. CONCLUSIONS Normal LV size and function RV enlargement with mild hypertrophy Moderate pulmonary hypertension Previewed by: Dr. Lennox Johnson MD (Electronically Signed) Final Date: 22 July 2022 18:04
[2022-07-22 20:04] LABS: Glucose,Whole Blood 341 mg/dL (70-110)
[2022-07-22] MEDS: hydrALAZINE HCL 25 MG TAB PO SCH (20:47)
[2022-07-23 06:13] LABS: Glucose,Whole Blood 100 mg/dL (70-110)
[2022-07-23] MEDS: INSULIN ASPART (NovoLOG) 100 UNIT/ML VIAL SQ SCH ×4 (06:24→21:08)
[2022-07-23] MEDS: ALPRAZolam 0.25 MG TAB PO SCH ×2 (06:44→17:37)
[2022-07-23] MEDS: atenoloL 50 MG TAB PO SCH ×2 (06:45→17:37)
[2022-07-23] MEDS: hydroCHLOROthiazide 12.5 MG CAP PO SCH (09:29)
[2022-07-23] MEDS: MAG HYDROX/AL HYDROX/SIMETH 30 ML CUP PO SCH ×4 (09:31→21:13)
[2022-07-23] MEDS: cloNIDine HCL 0.1 MG TAB PO SCH ×2 (09:38→21:14)
[2022-07-23] MEDS: ASPIRIN 81 MG PO SCH (09:38)
[2022-07-23] MEDS: SIMETHICONE 80 MG CHEWABLE PO SCH ×4 (09:38→21:14)
[2022-07-23] MEDS: hydrALAZINE HCL 25 MG TAB PO SCH ×2 (09:38→21:14)
[2022-07-23] MEDS: INSULIN DETEMIR (LEVEMIR) 100 UNIT/ML SYR SQ SCH ×2 (09:38→21:20)
[2022-07-23] MEDS: LOSARTAN 50 MG TAB PO SCH (09:38)
[2022-07-23] MEDS: PIOGLITAZONE 30 MG TAB PO SCH (09:38)
[2022-07-23] MEDS: amLODIPine 5 MG TAB PO SCH (09:38)
[2022-07-23 11:43] LABS: Glucose,Whole Blood 210 mg/dL (70-110)
--- NOTE | 2022-07-23 11:52 | P.NPCON ---
History of Present Illness - Reason for Consult hyponatremia - History of Present Illness Patient is a 69-year-old lady with history of hyponatremia preceding to be secondary to thiazide diuretics in the past. Patient is admitted to the hospital with complaints of chest pain. She was noted to have significantly elevated blood pressure. It was 200/87 mmHg. Currently improved with systolic blood pressure in the 140s now. Serum sodium was 132 and it has dropped to 127 today. Patient has had increased lower extremity swelling. She was also mildly short of breath this admission. Patient was started on hydrochlorothiazide however she is reluctant to take it due to history of hyponatremia possibly related to hydrochlorothiazide. She has been evaluated at our office previously. Patient states that she has used Lasix previously. However lately she has not been taking it regularly as outpatient. Review of Systems As per HPI Past Medical History Past Medical History: Asthma, Diabetes Mellitus, GERD/Reflux, Hyperlipidemia, Hypertension Additional Past Medical History / Comment(s): Zenker's diverticulum, hemrroids History of Any Multi-Drug Resistant Organisms: None Reported Past Surgical History: Cholecystectomy, Hysterectomy, Orthopedic Surgery, To nsillectomy, Tubal Ligation Additional Past Surgical History / Comment(s): right knee. right and left cataract. Past Anesthesia/Blood Transfusion Reactions: No Reported Reaction Smoking Status: Never smoker - Past Family History Mother Family Medical History: Cancer Additional Family Medical History / Comment(s): . Father Family Medical History: Cancer Additional Family Medical History / Comment(s): prostate Medications and Allergies Home Medications Medication Instructions Recorded Confirmed Type Pioglitazone [Actos] 30 mg PO DAILY 03/11/16 07/20/22 History atenoloL [Tenormin] 50 mg PO BID-W/MEALS 03/11/16 07/20/22 History metFORMIN HCL [Glucophage] 1,000 mg PO W/SUPPER 03/11/16 07/20/22 History cloNIDine HCL [Catapres] 0.2 mg PO HS tab 03/28/16 07/20/22 Rx ALPRAZolam [Xanax] 0.125 mg PO BID-W/MEALS 10/02/16 07/20/22 History Insulin Glargine,Hum.rec.anlog 1 dose SQ HS 10/24/16 07/20/22 History [Lantus Solostar] Pantoprazole [Protonix] 40 mg PO W/SUPPER 12/19/21 07/20/22 History Losartan Potassium 100 mg PO DAILY #14 tablet 12/23/21 07/20/22 Rx Allergies Allergy/AdvReac Type Severity Reaction Status Date / Time cephalexin Allergy Unknown Verified 07/20/22 18:51 ciprofloxacin [From Cipro] Allergy Anaphylaxis Verified 07/20/22 18:51 codeine Allergy Chest Pain Verified 07/20/22 18:51 diclofenac Allergy Anaphylaxis Verified 07/20/22 18:51 difluprednate [From Durezol] Allergy Anaphylaxis Verified 07/20/22 18:51 dog dander Allergy Unknown Verified 07/20/22 18:51 doxycycline [From Vibramycin] Allergy Unknown Verified 07/20/22 18:51 epinephrine Allergy Unknown Verified 07/20/22 18:51 erythromycin base Allergy Unknown Verified 07/20/22 18:51 Fish Containing Products Allergy Anaphylaxis Verified 07/20/22 18:51 latex Allergy Anaphylaxis Verified 07/20/22 18:51 metronidazole [From Flagyl] Allergy Anaphylaxis Verified 07/20/22 18:51 mold Allergy Unknown Verified 07/20/22 18:51 nepafenac Allergy Anaphylaxis Verified 07/20/22 18:51 ofloxacin [From Floxin] Allergy Anaphylaxis Verified 07/20/22 18:51 Penicillins Allergy Unknown Verified 07/20/22 18:51 Childhood shellfish derived [Shellfish] Allergy Anaphylaxis Verified 07/20/22 18:51 strawberry Allergy Burning & Verified 07/20/22 18:51 swelling Thiazides Allergy Unknown Verified 07/20/22 18:51 tomato AdvReac Mild Unknown Verified 07/20/22 18:51 Childhood bandages Allergy Unknown Uncoded 07/20/22 18:51 dust Allergy Unknown Uncoded 07/20/22 18:51 seafood Allergy Anaphylaxis Uncoded 07/20/22 18:51 Physical Exam Vitals: Vital Signs Temp Pulse Resp BP BP Pulse Ox 07/23/22 08:00 97.9 F 64 16 140/65 96 07/23/22 06:39 68 181/80 07/23/22 04:11 97.6 F 65 16 135/61 96 07/23/22 00:13 70 16 122/60 95 07/22/22 22:21 161/73 07/22/22 20:43 97.7 F 65 18 189/84 96 07/22/22 16:00 96.1 F L 66 18 144/66 95 07/22/22 12:30 60 163/74 Intake and Output 07/22/22 07/23/22 07/23/22 22:59 06:59 14:59 Intake Total 250 Output Total 600 150 Balance -350 -150 Intake: IV 10 Invasive Line 1 10 Oral 240 Output: Urine 600 150 Other: Voiding Method Toilet Toilet Toilet # Voids 1 # Bowel Movements 1 Weight 246.6 kg Patient is awake, comfortable, no acute distress Examination of the heart S1 and S2 Examination of the lungs bilateral breath sounds are heard Abdomen is soft nontender Examination of the lower extremities shows edema 2+ bilaterally WHEEL INSPECTOR exam grossly intact Results - Lab Results Most recent lab results Calcium 9.0 mg/dL (8.4-10.2) 07/23/22 08:22 Magnesium 1.8 mg/dL (1.6-2.3) 07/22/22 05:58 07/22/22 05:58 07/23/22 08:22 Assessment and Plan Assessment: 1. Hyponatremia appears hypervolemic. Check urine sodium and urine osmolality and maintain patient on loop diuretics. I will hold hydrochlorothiazide as it can worsen the hyponatremia. Patient is also advised regarding salt and fluid restriction. Patient did admit to increased fluid intake recently due to UTI prior to admission. 2. Volume overload 3. Hypertensive urgency currently improved partly volume sensitive and expect further improvement with improvement in volume status 4. Morbid obesity 5. Moderate pulmonary hypertension which is contributing to lower extremity edema. Plan: DC hydrochlorothiazide Add IV Lasix Repeat labs in a.m. Maintain salt and fluid restriction Check urine sodium and urine osmolality Thank you for the consultation. We will continue to follow the patient with you during her hospitalization
--- NOTE | 2022-07-23 12:32 | P.PN ---
Subjective Progress Note Date: 07/23/22 Principal diagnosis: Hypertension uncontrolled SUBJECTIVE : Patient seen and evaluated on 07/23, patient is anxious about her medications blood pressure is better and REVIEW OF SYSTEMS: NEGATIVE EXCEPT FOR anxiety CONSTITUTIONAL: No fever, no malaise, no fatigue. HEENT: No recent visual problems or hearing problems. Denied any sore throat. CARDIOVASCULAR: No chest pain, orthopnea, PND, no palpitations, no syncope. PULMONARY: No shortness of breath, no cough, no hemoptysis. GASTROINTESTINAL: No diarrhea, no nausea, no vomiting, no abdominal pain. NEUROLOGICAL: No headaches, no weakness, no numbness. HEMATOLOGICAL: Denies any bleeding or petechiae. GENITOURINARY: Denies any burning micturition, frequency, or urgency. MUSCULOSKELETAL/RHEUMATOLOGICAL: Denies any joint pain, swelling, or any muscle pain. ENDOCRINE: Denies any polyuria or polydipsia. PHYSICAL EXAMINATION: Vitals reviewed GENERAL: The patient is alert and oriented x3, not in any acute distress. Well developed, well nourished. HEENT: Pupils are round and equally reacting to light. EOMI. No scleral icterus. No conjunctival pallor. Normocephalic, atraumatic. No pharyngeal erythema. No thyromegaly. CARDIOVASCULAR: S1 and S2 present. No murmurs, rubs, or gallops. PULMONARY: Chest is clear to auscultation, no wheezing or crackles. ABDOMEN: Soft, nontender, nondistended, normoactive bowel sounds. No palpable organomegaly. MUSCULOSKELETAL: No joint swelling or deformity. EXTREMITIES: No cyanosis, clubbing, or pedal edema. NEUROLOGICAL: Gross neurological examination did not reveal any focal deficits. SKIN: No rashes. ASSESMENT & PLAN * Chest pain with hypertensive urgency * Diabetes mellitus type 2 * Electrode abnormality with hyponatremia and hypomagnesemia * Gastroesophageal reflux disease with history of duodenal ulcer * On 07/22 patient admitted inpatient secondary to need for IV antihypertensive medications for systolic blood pressure more than 200 * Serial troponins ordered which were negative. Continue medical management, patient receiving aspirin, cardiac medications adjusted by cardiology * Continue amlodipine, atenolol, clonidine, losartan, , hydralazine>> hydrochlorothiazide discontinued by nephrology started on his * In regards to her diabetes mellitus Accu-Cheks before meals at bedtime continue patient on metformin and correctional insulin * Continue patient on Protonix, started on Maalox and simethicone * Workup ordered by cardiology including an echocardiogram shows ejection fraction 55 pulse * CODE STATUS is full code * SCDs for DVT prophylaxis * Possible discharge 07/24 Objective - Vital Signs Vital signs: Vital Signs Temp 97.9 F 07/23/22 08:00 Pulse 64 07/23/22 08:00 Resp 16 07/23/22 08:00 BP 140/65 07/23/22 08:00 Pulse Ox 96 07/23/22 08:00 FiO2 Intake & Output 07/22/22 07/23/22 07/23/22 18:59 06:59 18:59 Intake Total 618 Output Total 500 750 Balance 118 -750 Weight 246.6 kg Intake: IV 20 Invasive Line 1 20 Oral 598 Output: Urine 500 750 Other: Voiding Method Toilet Toilet Toilet # Voids 1 # Bowel Movements 1 - Labs CBC & Chem 7: 07/22/22 05:58 07/23/22 08:22 Labs: Abnormal Lab Results - Last 24 Hours (Table) 07/22/22 07/22/22 07/23/22 Range/Units 16:17 20:03 08:22 Sodium 127 L (137-145) mmol/L Chloride 92 L (98-107) mmol/L BUN 21 H (7-17) mg/dL Glucose 209 H (74-99) mg/dL POC Glucose (mg/dL) 181 H 341 H (70-110) mg/dL 07/23/22 Range/Units 11:37 Sodium (137-145) mmol/L Chloride (98-107) mmol/L BUN (7-17) mg/dL Glucose (74-99) mg/dL POC Glucose (mg/dL) 210 H (70-110) mg/dL
[2022-07-23] MEDS: FUROSEMIDE 10 MG/ML 4 ML VIAL IV SCH ×2 (12:52→21:14)
--- NOTE | 2022-07-23 12:59 | P.PN ---
Subjective Progress Note Date: 07/23/22 HISTORY OF PRESENT ILLNESS: This is a 77-year-old female with a past medical history significant for hypertension and diabetes. 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 We have been asked to see the patient in consultation for elevated blood pressure. Patient examined at the bedside. Patient states yesterday she checked her blood pressure home and was found to be significantly elevated. She presented to the emergency room for further evaluation. Patient's blood pressure was found to be from elevated with a reading of 200/87. The patient states she has been having ongoing issues with blood pressure management over the past several months. She states that around last year she was switched from lisinopril to losartan. That was the last medication change that she had made to her antihypertensive regimen. She states in the past she was on diuretics but it affected her kidneys and she is hesitant to be placed on these again. Patient's blood pressure has improved since coming to the hospital. Patient currently denies chest pain or pressure. She denies shortness of breath. * EKG reveals sinus mechanism with no signs of acute ischemia * Chest xray chronic pulmonary venous decompensation without overt failure. * Laboratory data: WBC 9.5. Hemoglobin 11.2. Platelet count 323. Sodium 132. Potassium 5.4. BUN 15. Creatinine 0.65. Troponin negative 3. ProBNP 376. * Current home cardiac medications include losartan 100 mg daily, atenolol 50 mg twice a day, clonidine 0.2 mg at night 07/22 Echocardiogram has been obtained and report is pending. Yesterday, clonidine was increased to twice daily, amlodipine was added and increased to 10 mg and patient was continued on losartan at 100 mg daily. Her blood pressure this morning is still elevated at 168/79 but subsequently was at 125/68 after IV hydralazine. Long discussion with the patient regarding hydrochlorothiazide/lisinopril causing kidney trouble in the past. We are adding in hydrochlorothiazide and ID consult with nephrology. Repeat BMP ordered for tomorrow. 07/23 Yesterday, patient was started on hydrochlorothiazide which she has refused to take and has not received any. We also started her on hydralazine, increased frequency of clonidine to twice daily and decreased amlodipine. Patient's blood pressure is improved and mostly running 140/65. Subsequently, nephrology has made further adjustments to her medications by discontinuing hydrochlorothiazide and starting Lasix 40 mg IV every 12 hours for hyponatremia. Blood work today came back with a sodium 127, potassium 5, BUN 21 creatinine 0.99. Echocardiogram reveals EF of 55%, RV enlargement with mild hypertrophy. Moderate pulmonary hypertension PHYSICAL EXAM: VITAL SIGNS: Reviewed. GENERAL: Well-developed in no acute distress. HEENT: Head is normocephalic. Pupils are equal, round. Sclerae anicteric. Mucous membranes of the mouth are moist. Neck supple. No JVD or thyromegaly LUNGS: Respirations even and unlabored. Lungs essentially clear to auscultation bilaterally. HEART: Regular rate and rhythm. S1 and S2 heard. ABDOMEN: Soft. Nondistended. Nontender. EXTREMITIES: Normal range of motion. No clubbing or cyanosis. Peripheral puls es intact. No lower extremity edema NEUROLOGIC: Awake and alert. Oriented x 3. ASSESSMENT: Hypertensive urgency, improving Diabetes Morbid obesity Hypomagnesemia Hyponatremia PLAN: Continue current blood pressure medications including clonidine 0.2 twice daily, atenolol 50 mg twice daily, amlodipine decreased to 5 mg daily, hydralazine 25 mg twice daily Patient has refused to take hydrochlorothiazide Patient to have renal artery US performed outpatient Patient is cleared for discharge from cardiology may follow-up with management by nephrology Dr. Bishop Nurse practitioner note has been reviewed by physician. Signing provider agrees with the documented findings, assessment, and plan of care. Objective - Vital Signs Vital signs: Vital Signs Temp 97.9 F 07/23/22 08:00 Pulse 64 07/23/22 08:00 Resp 16 07/23/22 04:11 BP 140/65 07/23/22 08:00 Pulse Ox 96 07/23/22 08:00 FiO2 Intake & Output 07/22/22 07/23/22 07/23/22 18:59 06:59 18:59 Intake Total 618 Output Total 500 750 Balance 118 -750 Weight 246.6 kg Intake: IV 20 Invasive Line 1 20 Oral 598 Output: Urine 500 750 Other: Voiding Method Toilet Toilet # Voids 1 # Bowel Movements 1 - Labs CBC & Chem 7: 07/22/22 05:58 07/23/22 08:22 Labs: Abnormal Lab Results - Last 24 Hours (Table) 07/22/22 07/22/22 07/22/22 Range/Units 09:57 11:49 16:17 POC Glucose (mg/dL) 199 H 191 H 181 H (70-110) mg/dL 07/22/22 Range/Units 20:03 POC Glucose (mg/dL) 341 H (70-110) mg/dL
[2022-07-23 16:37] LABS: Glucose,Whole Blood 195 mg/dL (70-110)
[2022-07-23] MEDS: metFORMIN 500 MG TAB PO SCH (17:37)
[2022-07-23] MEDS: PANTOPRAZOLE 40 MG TABLET PO SCH (17:37)
[2022-07-23 20:49] LABS: Glucose,Whole Blood 138 mg/dL (70-110)
[2022-07-24 02:37] LABS: Glucose,Whole Blood 138 mg/dL (70-110)
[2022-07-24] MEDS: hydrALAZINE HCL 20 MG/ML 1 ML VIAL IVP PRN (02:44)
[2022-07-24] MEDS ORDERED: ALPRAZolam 0.25 MG TAB PO STA (03:45)
[2022-07-24 06:05] LABS: Glucose,Whole Blood 150 mg/dL (70-110)
[2022-07-24] MEDS: INSULIN ASPART (NovoLOG) 100 UNIT/ML VIAL SQ SCH ×4 (06:37→20:37)
[2022-07-24] MEDS: ALPRAZolam 0.25 MG TAB PO SCH ×2 (06:49→16:51)
[2022-07-24] MEDS: atenoloL 50 MG TAB PO SCH ×2 (06:50→16:52)
[2022-07-24] MEDS: hydrALAZINE HCL 25 MG TAB PO SCH ×2 (08:28→20:36)
[2022-07-24] MEDS: SIMETHICONE 80 MG CHEWABLE PO SCH ×4 (08:28→21:36)
[2022-07-24] MEDS: LOSARTAN 50 MG TAB PO SCH (08:29)
[2022-07-24] MEDS: amLODIPine 5 MG TAB PO SCH (08:29)
[2022-07-24] MEDS: ASPIRIN 81 MG PO SCH (08:29)
[2022-07-24] MEDS: PIOGLITAZONE 30 MG TAB PO SCH (08:29)
[2022-07-24] MEDS: cloNIDine HCL 0.1 MG TAB PO SCH ×2 (08:29→20:36)
[2022-07-24] MEDS: FUROSEMIDE 10 MG/ML 4 ML VIAL IV SCH ×2 (08:30→20:36)
[2022-07-24] MEDS: MAG HYDROX/AL HYDROX/SIMETH 30 ML CUP PO SCH ×4 (08:30→21:36)
[2022-07-24] MEDS: INSULIN DETEMIR (LEVEMIR) 100 UNIT/ML SYR SQ SCH ×2 (08:30→20:36)
--- NOTE | 2022-07-24 10:59 | P.PN ---
Subjective Patient is seen for follow-up for hyponatremia. She does have volume overload and was started on IV Lasix yesterday. Hydrochlorothiazide is discontinued secondary to hyponatremia. Patient states her leg swelling is improved today. Labs are pending from today. Objective - Vital Signs Vital signs: Vital Signs Temp 97.5 F L 07/24/22 08:25 Pulse 59 L 07/24/22 08:25 Resp 18 07/24/22 08:25 BP 121/64 07/24/22 08:25 Pulse Ox 97 07/24/22 08:25 FiO2 Intake & Output 07/23/22 07/24/22 07/24/22 18:59 06:59 18:59 Intake Total 910 358 Output Total 400 550 200 Balance -400 360 158 Weight 246.6 kg 110.9 kg Intake: Oral 910 358 Output: Urine 200 550 200 Post Void Residual 200 Other: Voiding Method Toilet Toilet Toilet # Voids 1 # Bowel Movements 1 1 - Exam Patient is awake, comfortable, no acute distress Examination of the heart S1 and S2 Examination of the lungs decreased breath sounds at the bases Abdomen is soft nontender Examination of lower extremities shows edema 2+ bilaterally, slightly improved from yesterday SCREW MACHINE OPERATOR SINGLE SPINDLE exam grossly intact - Labs CBC & Chem 7: 07/22/22 05:58 07/23/22 08:22 Labs: Abnormal Lab Results - Last 24 Hours (Table) 07/23/22 07/23/22 07/23/22 Range/Units 11:37 16:35 20:48 POC Glucose (mg/dL) 210 H 195 H 138 H (70-110) mg/dL 07/24/22 07/24/22 Range/Units 02:36 06:01 POC Glucose (mg/dL) 138 H 150 H (70-110) mg/dL Assessment and Plan Assessment: 1. Hyponatremia appears hypervolemic. Maintained on IV Lasix. Hydrochlorothiazide was discontinued secondary to hyponatremia. Patient did admit to increased fluid intake recently due to UTI prior to admission. 2. Volume overload 3. Hypertensive urgency currently improved partly volume sensitive and expect further improvement with improvement in volume status 4. Morbid obesity 5. Moderate pulmonary hypertension which is contributing to lower extremity edema. Plan: Continue IV Lasix for 1 more day Follow-up on labs from today Repeat labs in a.m.
[2022-07-24 11:36] LABS: Glucose,Whole Blood 247 mg/dL (70-110)
[2022-07-24 11:58] LABS: Calcium 9.2 mg/dL (8.4-10.2); Potassium 5.2 mmol/L (3.5-5.1)
--- NOTE | 2022-07-24 12:45 | P.PN ---
Subjective Progress Note Date: 07/24/22 Principal diagnosis: Hypertension uncontrolled SUBJECTIVE : Patient seen and evaluated on 07/23, patient is anxious about her medications blood pressure is better 07/24: Blood pressure continue to wax and wane, however patient states he feels better. Nephrology was to monitor patient for another 24 hours. Continue to monitor creatinine and serum sodium levels REVIEW OF SYSTEMS: NEGATIVE EXCEPT FOR anxiety CONSTITUTIONAL: No fever, no malaise, no fatigue. HEENT: No recent visual problems or hearing problems. Denied any sore throat. CARDIOVASCULAR: No chest pain, orthopnea, PND, no palpitations, no syncope. PULMONARY: No shortness of breath, no cough, no hemoptysis. GASTROINTESTINAL: No diarrhea, no nausea, no vomiting, no abdominal pain. NEUROLOGICAL: No headaches, no weakness, no numbness. HEMATOLOGICAL: Denies any bleeding or petechiae. GENITOURINARY: Denies any burning micturition, frequency, or urgency. MUSCULOSKELETAL/RHEUMATOLOGICAL: Denies any joint pain, swelling, or any muscle pain. ENDOCRINE: Denies any polyuria or polydipsia. PHYSICAL EXAMINATION: Vitals reviewed GENERAL: The patient is alert and oriented x3, not in any acute distress. Well developed, well nourished. HEENT: Pupils are round and equally reacting to light. EOMI. No scleral icterus. No conjunctival pallor. Normocephalic, atraumatic. No pharyngeal erythema. No thyromegaly. CARDIOVASCULAR: S1 and S2 present. No murmurs, rubs, or gallops. , Lower extremity edema PULMONARY: Chest is clear to auscultation, no wheezing or crackles. ABDOMEN: Soft, nontender, nondistended, normoactive bowel sounds. No palpable organomegaly. MUSCULOSKELETAL: No joint swelling or deformity. EXTREMITIES: No cyanosis, clubbing, or pedal edema. NEUROLOGICAL: Gross neurological examination did not reveal any focal deficits. SKIN: No rashes. ASSESMENT & PLAN * Chest pain with hypertensive urgency * Chronic hyponatremia * Moderate pulmonary hypertension * Diabetes mellitus type 2 * Electrode abnormality with hyponatremia and hypomagnesemia * Gastroesophageal reflux disease with history of duodenal ulcer * On 07/22 patient admitted inpatient secondary to need for IV antihypertensive medications for systolic blood pressure more than 200 * Serial troponins ordered which were negative. Continue medical management, patient receiving aspirin, cardiac medications adjusted by cardiology * Continue amlodipine, atenolol, clonidine, losartan, , hydralazine>> hydrochlorothiazide discontinued by nephrology started on Lasix and * In regards to her diabetes mellitus Accu-Cheks before meals at bedtime continue patient on metformin and correctional insulin * Continue patient on Protonix, started on Maalox and simethicone * Workup ordered by cardiology including an echocardiogram shows ejection fraction 55% * Continue to monitor lab work in serum sodium levels and renal function while on Lasix, nephrology wanted to monitor patient for another 24 hour * CODE STATUS is full code * SCDs for DVT prophylaxis * Possible discharge 07/24 Objective - Vital Signs Vital signs: Vital Signs Temp 97.5 F L 07/24/22 12:02 Pulse 59 L 07/24/22 12:02 Resp 18 07/24/22 12:02 BP 161/81 07/24/22 12:02 Pulse Ox 97 07/24/22 12:02 FiO2 Intake & Output 07/23/22 07/24/22 07/24/22 18:59 06:59 18:59 Intake Total 910 358 Output Total 400 550 200 Balance -400 360 158 Weight 246.6 kg 110.9 kg Intake: Oral 910 358 Output: Urine 200 550 200 Post Void Residual 200 Other: Voiding Method Toilet Toilet Toilet # Voids 1 # Bowel Movements 1 1 - Labs CBC & Chem 7: 07/22/22 05:58 07/24/22 10:37 Labs: Abnormal Lab Results - Last 24 Hours (Table) 07/23/22 07/23/22 07/24/22 Range/Units 16:35 20:48 02:36 Sodium (137-145) mmol/L Potassium (3.5-5.1) mmol/L Chloride (98-107) mmol/L BUN (7-17) mg/dL Creatinine (0.52-1.04) mg/dL Glucose (74-99) mg/dL POC Glucose (mg/dL) 195 H 138 H 138 H (70-110) mg/dL 07/24/22 07/24/22 07/24/22 Range/Units 06:01 10:37 10:37 Sodium 126 L 125 L (137-145) mmol/L Potassium 5.2 H (3.5-5.1) mmol/L Chloride 89 L (98-107) mmol/L BUN 25 H (7-17) mg/dL Creatinine 1.07 H (0.52-1.04) mg/dL Glucose 266 H (74-99) mg/dL POC Glucose (mg/dL) 150 H (70-110) mg/dL 07/24/22 Range/Units 11:35 Sodium (137-145) mmol/L Potassium (3.5-5.1) mmol/L Chloride (98-107) mmol/L BUN (7-17) mg/dL Creatinine (0.52-1.04) mg/dL Glucose (74-99) mg/dL POC Glucose (mg/dL) 247 H (70-110) mg/dL
[2022-07-24 16:26] LABS: Glucose,Whole Blood 200 mg/dL (70-110)
[2022-07-24] MEDS: metFORMIN 500 MG TAB PO SCH (16:51)
[2022-07-24] MEDS: PANTOPRAZOLE 40 MG TABLET PO SCH (16:52)
[2022-07-24 20:12] LABS: Glucose,Whole Blood 227 mg/dL (70-110)
[2022-07-25 06:26] LABS: Glucose,Whole Blood 73 mg/dL (70-110)
[2022-07-25 06:46] LABS: Glucose,Whole Blood 113 mg/dL (70-110)
[2022-07-25] MEDS: ALPRAZolam 0.25 MG TAB PO SCH (06:52)
[2022-07-25] MEDS: atenoloL 50 MG TAB PO SCH (06:52)
[2022-07-25] MEDS: INSULIN ASPART (NovoLOG) 100 UNIT/ML VIAL SQ SCH ×2 (06:56→12:28)
[2022-07-25 07:11] LABS: Glucose,Whole Blood 163 mg/dL (70-110)
[2022-07-25 09:17] LABS: HCT 36.8 % (34.0-46.0); MCH 29.6 pg (25.0-35.0); MCHC 32.6 g/dL (31.0-37.0); MCV 90.7 fL (80.0-100.0); Mean Platelet Volume 8.4; Platelet Count 360 k/uL (150-450); RBC 4.06 m/uL (3.80-5.40); RDW 14.5 % (11.5-15.5); WBC 9.4 k/uL (3.8-10.6)
[2022-07-25 09:28] LABS: Calcium 9.2 mg/dL (8.4-10.2); Magnesium 1.8 mg/dL (1.6-2.3)
[2022-07-25] MEDS: ASPIRIN 81 MG PO SCH (09:28)
[2022-07-25] MEDS: hydrALAZINE HCL 25 MG TAB PO SCH (09:29)
[2022-07-25] MEDS: LOSARTAN 50 MG TAB PO SCH (09:29)
[2022-07-25] MEDS: amLODIPine 5 MG TAB PO SCH (09:29)
[2022-07-25] MEDS: cloNIDine HCL 0.1 MG TAB PO SCH (09:29)
[2022-07-25] MEDS: MAG HYDROX/AL HYDROX/SIMETH 30 ML CUP PO SCH ×2 (09:29→12:25)
[2022-07-25] MEDS: PIOGLITAZONE 30 MG TAB PO SCH (09:30)
[2022-07-25] MEDS: INSULIN DETEMIR (LEVEMIR) 100 UNIT/ML SYR SQ SCH (09:30)
[2022-07-25] MEDS: FUROSEMIDE 10 MG/ML 4 ML VIAL IV SCH (09:30)
[2022-07-25] MEDS: SIMETHICONE 80 MG CHEWABLE PO SCH (09:30)
--- NOTE | 2022-07-25 11:11 | P.PN ---
Subjective Patient is seen for follow-up for hyponatremia. She does have volume overload and was started on IV Lasix yesterday. Hydrochlorothiazide is discontinued secondary to hyponatremia. Patient states her leg swelling is improved today. Weight is down by about 3 pounds. 24 hour urine documented at 2 L Serum sodium is 131 today. Objective - Vital Signs Vital signs: Vital Signs Temp 97.6 F 07/25/22 03:23 Pulse 65 07/25/22 06:51 Resp 16 07/25/22 03:23 BP 177/78 07/25/22 06:51 Pulse Ox 93 L 07/25/22 03:23 FiO2 Intake & Output 07/24/22 07/25/22 07/25/22 18:59 06:59 18:59 Intake Total 868 120 Output Total 700 1300 Balance 168 -1300 120 Weight 109.2 kg Intake: Oral 868 120 Output: Urine 700 1300 Other: Voiding Method Toilet Toilet # Bowel Movements 1 - Exam Patient is awake, comfortable, no acute distress Examination of the heart S1 and S2 Examination of the lungs decreased breath sounds at the bases Abdomen is soft nontender Examination of lower extremities shows edema 2+ bilaterally, slightly improved from yesterday TEST DEVELOPER exam grossly intact - Labs CBC & Chem 7: 07/25/22 08:58 07/25/22 08:58 Labs: Abnormal Lab Results - Last 24 Hours (Table) 07/24/22 07/24/22 07/24/22 Range/Units 10:37 10:37 11:35 Sodium 126 L 125 L (137-145) mmol/L Potassium 5.2 H (3.5-5.1) mmol/L Chloride 89 L (98-107) mmol/L Carbon Dioxide (22-30) mmol/L BUN 25 H (7-17) mg/dL Creatinine 1.07 H (0.52-1.04) mg/dL Glucose 266 H (74-99) mg/dL POC Glucose (mg/dL) 247 H (70-110) mg/dL 07/24/22 07/24/22 07/25/22 Range/Units 16:24 20:10 06:44 Sodium (137-145) mmol/L Potassium (3.5-5.1) mmol/L Chloride (98-107) mmol/L Carbon Dioxide (22-30) mmol/L BUN (7-17) mg/dL Creatinine (0.52-1.04) mg/dL Glucose (74-99) mg/dL POC Glucose (mg/dL) 200 H 227 H 113 H (70-110) mg/dL 07/25/22 07/25/22 Range/Units 07:10 08:58 Sodium 131 L (137-145) mmol/L Potassium (3.5-5.1) mmol/L Chloride 91 L (98-107) mmol/L Carbon Dioxide 34 H (22-30) mmol/L BUN 28 H (7-17) mg/dL Creatinine (0.52-1.04) mg/dL Glucose 212 H (74-99) mg/dL POC Glucose (mg/dL) 163 H (70-110) mg/dL Assessment and Plan Assessment: 1. Hyponatremia appears hypervolemic. Maintained on IV Lasix. Hydrochlorothiazide was discontinued secondary to hyponatremia. Patient did admit to increased fluid intake recently due to UTI prior to admission. 2. Volume overload 3. Hypertensive urgency currently improved partly volume sensitive and expect further improvement with improvement in volume status 4. Morbid obesity 5. Moderate pulmonary hypertension which is contributing to lower extremity edema. Plan: Okay to discharge from nephrology standpoint. Patient will continue with Lasix 40 mg twice a day for 1 week and then daily after that. She should follow-up in the office in 1-2 weeks with repeat labs prior to visit. Maintain salt and fluid restriction.
[2022-07-25 12:14] LABS: Glucose,Whole Blood 166 mg/dL (70-110)
[2022-07-25 12:49] VITALS: BP 112/67; PULSE 52; RESP 16; TEMP 97.6
--- NOTE | 2022-07-25 13:18 | P.DS ---
Providers Date of admission: 07/23/22 11:23 Expected date of discharge: 07/25/22 Attending physician: Tegan Ferraro Consults: 07/20/22 19:15 Consult Physician Urgent Consulting Provider: [facility] Consult Reason/Comments: acute cp, accelerated htn Do you want consulting provider notified?: Yes 07/22/22 12:18 Consult Physician Routine Consulting Provider: Mary Christopher Consult Reason/Comments: HTn concern w thiazide Do you want consulting provider notified?: Yes Primary care physician: Latanya Sanchez Hospital Course: Discharge diagnoses; Chest pain with hypertensive urgency Chronic hyponatremia Diabetes mellitus type 2 Electrode abnormality with hyponatremia and hypomagnesemia Gastroesophageal reflux disease with history of duodenal ulcer Volume overload Hypertensive urgency currently improved partly volume sensitive and expect further improvement with improvement in volume status Morbid obesity Hospital course; * 69-year-old lady with past medical history significant for hypertension, diabetes mellitus, history of duodenal ulcer presented to the emergency department with complaints of chest pain as well as noted to have elevated blood pressure. * Patient was evaluated in ER and was admitted for further management. As observation. Vision had EKG done which showed sinus rhythm and no evidence of ischemia. * Chest x-ray obtained in ER shows pulmonary vascular congestion * Lab work obtained showed normal white cell count, patient was noted to have low sodium of 128, troponin within normal limits, cortisol within normal limits * Magnesium at the time of presentation was noted to be critically low at 1.3 * Cardiology has been consulted and patient was placed on medical floor for further management * Patient was seen by nephrology, they started patient on diuretics. * Patient hyponatremia improved, nephrology recommended discharging patient on Lasix 40 twice a day for 1 week followed by Lasix 40 mg daily PHYSICAL EXAMINATION: GENERAL: The patient is alert and oriented x3, not in any acute distress. Well developed, well nourished. HEENT: Pupils are round and equally reacting to light. EOMI. No scleral icterus. No conjunctival pallor. Normocephalic, atraumatic. No pharyngeal erythema. No thyromegaly. CARDIOVASCULAR: S1 and S2 present. No murmurs, rubs, or gallops. PULMONARY: Chest is clear to auscultation, no wheezing or crackles. ABDOMEN: Soft, nontender, nondistended, normoactive bowel sounds. No palpable organomegaly. MUSCULOSKELETAL: No joint swelling or deformity. EXTREMITIES: No cyanosis, clubbing, or pedal edema. NEUROLOGICAL: Gross neurological examination did not reveal any focal deficits. SKIN: No rashes. Patient Condition at Discharge: Stable Plan - Discharge Summary Discharge Rx Participant: No New Discharge Prescriptions: New Aspirin 81 mg PO DAILY #30 tab amLODIPine [Norvasc] 5 mg PO DAILY #30 tab Furosemide [Lasix] 40 mg PO DAILY #30 tablet Continue Pioglitazone [Actos] 30 mg PO DAILY metFORMIN HCL [Glucophage] 1,000 mg PO W/SUPPER atenoloL [Tenormin] 50 mg PO BID-W/MEALS cloNIDine HCL [Catapres] 0.2 mg PO HS tab ALPRAZolam [Xanax] 0.125 mg PO BID-W/MEALS Insulin Glargine,Hum.rec.anlog [Lantus Solostar Pen] 1 dose SQ HS Pantoprazole [Protonix] 40 mg PO W/SUPPER Losartan Potassium 100 mg PO DAILY #14 tablet Discharge Medication List Pioglitazone [Actos] 30 mg PO DAILY 03/11/16 [History] atenoloL [Tenormin] 50 mg PO BID-W/MEALS 03/11/16 [History] metFORMIN HCL [Glucophage] 1,000 mg PO W/SUPPER 03/11/16 [History] cloNIDine HCL [Catapres] 0.2 mg PO HS tab 03/28/16 [Rx] ALPRAZolam [Xanax] 0.125 mg PO BID-W/MEALS 10/02/16 [History] Insulin Glargine,Hum.rec.anlog [Lantus Solostar Pen] 1 dose SQ HS 10/24/16 [History] Pantoprazole [Protonix] 40 mg PO W/SUPPER 12/19/21 [History] Losartan Potassium 100 mg PO DAILY #14 tablet 12/23/21 [Rx] Aspirin 81 mg PO DAILY #30 tab 07/25/22 [Rx] Furosemide [Lasix] 40 mg PO DAILY #30 tablet 07/25/22 [Rx] amLODIPine [Norvasc] 5 mg PO DAILY #30 tab 07/25/22 [Rx] Follow up Appointment(s)/Referral(s): Latanya Sanchez MD [Primary Care Provider] - 1 Week Brian Bishpo MD [STAFF PHYSICIAN] - 2 Weeks Mary Christopher MD [STAFF PHYSICIAN] - 1 Week Discharge Disposition: HOME SELF-CARE
[2022-07-28 19:36] LABS: Metanephrine, Free <25 pg/mL (< OR = 57); Normetanephrine, Free 73 pg/mL (< OR = 148); Total, Free (MN + NMN) 73 pg/mL (< OR = 205)
== END 2022-07-25 16:16 | disposition home or self-care (01) | DRG 305 ==
LOC: EC 17:00 → 3SCARD 19:15 → OBSVTOIN 07-23 11:23
PROVIDERS: ADMIT Hospitalist; ATTEND Hospitalist
DX: I16.0 Hypertensive urgency (principal); E87.1 Hypo-osmolality and hyponatremia; Z68.41 Body mass index [BMI] 40.0-44.9, adult; I10 Essential (primary) hypertension; E66.01 Morbid (severe) obesity due to excess calories; E78.5 Hyperlipidemia, unspecified; E87.70 Fluid overload, unspecified; I27.20 Pulmonary hypertension, unspecified; K21.9 Gastro-esophageal reflux disease without esophagitis; E83.42 Hypomagnesemia; Z87.11 Personal history of peptic ulcer disease; Z87.440 Personal history of urinary (tract) infections; Z79.84 Long term (current) use of oral hypoglycemic drugs; Z79.899 Other long term (current) drug therapy; Z90.710 Acquired absence of both cervix and uterus; Z88.1 Allergy status to other antibiotic agents; Z91.040 Latex allergy status; Z88.5 Allergy status to narcotic agent; Z88.0 Allergy status to penicillin; Z91.013 Allergy to seafood; Z88.8 Allergy status to other drugs, medicaments and biological substances; Z91.018 Allergy to other foods
CPT/HCPCS: 36415; 71046; 80048; 80053; 82088; 82533; 83690; 83735; 83835; 83880; 83935; 84244; 84295; 84300; 84484; 85025; 85027; 85610; 85730; 93005; 93306; 96365; 99285

== ENCOUNTER 2023-12-11 02:20 | Inpatient (IN) | payer MEDICARE ==
--- NOTE | 2023-12-11 05:41 | ED ---
General Adult HPI <Verónica Odonnell - Last Filed: 12/11/23 10:29> - General Source: patient Mode of arrival: EMS Limitations: no limitations - History of Present Illness -: days(s) Severity scale (1-10): 0 Consistency: intermittent Improves with: none Worsens with: none Associated Symptoms: weakness Treatments Prior to Arrival: none <Feroz Ruiz - Last Filed: 12/29/23 08:03> - General Chief complaint: Arrhythmia/Palpitations Time Seen by Provider: 12/11/23 05:38 - History of Present Illness Initial comments: This patient is a 78-year-old woman who presents with complaint that it feels like her heart has been beating irregularly. The patient states that she does have problems with low magnesium and she believes this may be responsible. She is having symptoms intermittently for a couple of days but it became more persistent this evening. States she is also having spasms in the muscles of her shoulders and neck bilaterally. She states that the spasms are brought on when she attempts to turn her head. The last number minutes and involved. Patient denies chest pain, dyspnea, syncope, nausea, vomiting. (Feroz Ruiz) - Related Data Home Medications Medication Instructions Recorded Confirmed Pioglitazone [Actos] 15 mg PO DAILY@109903/11/16 12/11/23 atenoloL [Tenormin] 50 mg PO BID@1100,209903/11/16 12/11/23 metFORMIN HCL [Glucophage] 1,000 mg PO BID@1500,209903/11/16 12/11/23 Insulin Glargine,Hum.rec.anlog 7 - 12 units SQ 10/24/16 12/11/23 [Lantus Solostar Pen] ALPRAZolam [Xanax] 0.125 mg PO BID@1100,209908/05/22 12/11/23 Acetaminophen Tab [Tylenol] 500 mg PO DAILY@149912/11/23 12/11/23 Losartan Potassium 100 mg PO DAILY@109912/11/23 12/11/23 Magnesium Oxide [Mag-Ox] 400 mg PO DAILY@149912/11/23 12/11/23 amLODIPine [Norvasc] 5 mg PO DAILY@109912/11/23 12/11/23 cloNIDine HCL [Catapres] 0.2 mg PO HS 12/11/23 12/11/23 Previous Rx's Medication Instructions Recorded Acetaminophen Tab [Tylenol] 650 mg PO Q4HR PRN #0 tab 12/16/23 Furosemide [Lasix] 60 mg PO BID@0900,1600 #60 tab 12/16/23 Levothyroxine Sodium [Synthroid] 25 mcg PO DAILY@0630 #30 tab 12/16/23 Allergies Allergy/AdvReac Type Severity Reaction Status Date / Time cephalexin Allergy Unknown Verified 12/11/23 12:37 ciprofloxacin [From Cipro] Allergy Anaphylaxis Verified 12/11/23 12:37 codeine Allergy Chest Pain Verified 12/11/23 12:37 diclofenac Allergy Anaphylaxis Verified 12/11/23 12:37 difluprednate [From Durezol] Allergy Anaphylaxis Verified 12/11/23 12:37 dog dander Allergy Unknown Verified 12/11/23 12:37 doxycycline [From Vibramycin] Allergy Unknown Verified 12/11/23 12:37 epinephrine Allergy Unknown Verified 12/11/23 12:37 erythromycin base Allergy Unknown Verified 12/11/23 12:37 Fish Containing Products Allergy Anaphylaxis Verified 12/11/23 12:37 latex Allergy Anaphylaxis Verified 12/11/23 12:37 metronidazole [From Flagyl] Allergy Anaphylaxis Verified 12/11/23 12:37 mold Allergy Unknown Verified 12/11/23 12:37 nepafenac Allergy Anaphylaxis Verified 12/11/23 12:37 ofloxacin [From Floxin] Allergy Anaphylaxis Verified 12/11/23 12:37 Penicillins Allergy Unknown Verified 12/11/23 12:37 Childhood shellfish derived [Shellfish] Allergy Anaphylaxis Verified 12/11/23 12:37 strawberry Allergy Burning & Verified 12/11/23 12:37 swelling Thiazides Allergy Unknown Verified 12/11/23 12:37 tomato AdvReac Mild Unknown Verified 12/11/23 12:37 Childhood bandages Allergy Unknown Uncoded 12/11/23 12:37 dust Allergy Unknown Uncoded 12/11/23 12:37 seafood Allergy Anaphylaxis Uncoded 12/11/23 12:37 Review of Systems ROS Other: All systems not noted in ROS Statement are negative. <Verónica Odonnlel - Last Filed: 12/11/23 10:29> ROS Other: All systems not noted in ROS Statement are negative. Constitutional: Reports: weakness. Denies: fever, chills Eyes: Denies: vision change Respiratory: Denies: cough, dyspnea Cardiovascular: Reports: palpitations, edema (Chronic). Denies: chest pain, orthopnea, syncope Gastrointestinal: Denies: abdominal pain, nausea, vomiting, diarrhea Genitourinary: Denies: dysuria, hematuria Musculoskeletal: Denies: back pain Skin: Denies: rash Neurological: Denies: headache, weakness, numbness, confusion <Feroz Ruiz - Last Filed: 12/29/23 08:03> ROS Statement: Those systems with pertinent positive or pertinent negative responses have been documented in the HPI. Past Medical History Past Medical History: Asthma, Diabetes Mellitus, GERD/Reflux, Hyperlipidemia, H ypertension Additional Past Medical History / Comment(s): Zenker's diverticulum, hemrroids History of Any Multi-Drug Resistant Organisms: None Reported Past Surgical History: Cholecystectomy, Hysterectomy, Orthopedic Surgery, Tonsillectomy, Tubal Ligation Additional Past Surgical History / Comment(s): right knee. right cataract. Past Anesthesia/Blood Transfusion Reactions: No Reported Reaction Past Psychological History: Anxiety Smoking Status: Never smoker Past Alcohol Use History: None Reported Past Drug Use History: None Reported - Past Family History Mother Family Medical History: Cancer Additional Family Medical History / Comment(s): . Father Family Medical History: Cancer Additional Family Medical History / Comment(s): prostate <Feroz Ruiz - Last Filed: 12/29/23 08:03> General Exam Limitations: no limitations General appearance: alert, in no apparent distress Head exam: Present: atraumatic, normocephalic Eye exam: Present: normal appearance. Absent: scleral icterus, conjunctival injection Neck exam: Present: normal inspection Respiratory exam: Present: normal lung sounds bilaterally. Absent: respiratory distress, wheezes, rales, rhonchi, stridor, accessory muscle use Cardiovascular Exam: Present: irregular rhythm, normal heart sounds. Absent: systolic murmur, diastolic murmur, rubs, gallop GI/Abdominal exam: Present: soft. Absent: distended, tenderness, guarding, rebound, rigid, mass Extremities exam: Present: normal capillary refill, pedal edema (Patient has bilateral edema to the knees.). Absent: tenderness, joint swelling, calf t enderness Back exam: Present: normal inspection. Absent: CVA tenderness (R), CVA tenderness (L) Neurological exam: Present: alert Skin exam: Present: warm, dry, intact, normal color. Absent: rash <Feroz Ruiz - Last Filed: 12/29/23 08:03> Course Vital Signs 12/11/23 12/11/23 12/11/23 02:37 05:22 06:03 Temperature 97.8 F 97.7 F Pulse Rate 61 60 77 Respiratory 18 18 20 Rate Blood Pressure 117/76 143/88 158/84 O2 Sat by Pulse 97 97 97 Oximetry 12/11/23 12/11/23 12/11/23 08:03 09:00 10:50 Temperature Pulse Rate 76 91 Respiratory 16 16 16 Rate Blood Pressure 118/101 139/74 118/84 O2 Sat by Pulse 97 97 Oximetry 12/11/23 14:59 Temperature Pulse Rate 98 Respiratory 20 Rate Blood Pressure 156/96 O2 Sat by Pulse 96 Oximetry EKG Findings - EKG Results: EKG: interpreted by ERMD, sinus rhythm (With frequent premature atrial contractions.), normal axis, normal QRS, normal ST/T <Feroz Ruiz - Last Filed: 12/29/23 08:03> Medical Decision Making - Lab Data Result diagrams: 12/11/23 02:56 <Verónica Odonnell - Last Filed: 12/11/23 10:29> - Lab Data Result diagrams: 12/16/23 07:14 12/16/23 07:14 <Feroz Ruiz - Last Filed: 12/29/23 08:03> - Medical Decision Making Was patient admitted / discharged? Hospital course, mention meds given and route, prescriptions, significant lab abnormalities, going to OR and other pertinent info. @ -Patient signed out to me from Dr. Ordoñez. Labs do return. Sodium is 122. Magnesium is 1.3. Patient does appear to have hypervolemic hyponatremia. Pat ient will be given Lasix and magnesium replacement. She will be admitted to Dr. Sanchez who accepted the admission Undiagnosed new problem with uncertain prognosis? @ -No Drug Therapy requiring intensive monitoring for toxicity (Heparin, Nitro, Insulin, Cardizem)? @ -No Were any procedures done? @ -No Diagnosis/symptom? @ -Palpitations, hypomagnesemia, hyponatremia Acute, or Chronic, or Acute on Chronic? @ -Acute on chronic Uncomplicated (without systemic symptoms) or Complicated (systemic symptoms)? @ -Complicated Side effects of treatment? @ -No Exacerbation, Progression, or Severe Exacerbation? @ -No Poses a threat to life or bodily function? How? (Chest pain, USA, NM, pneumonia, PE, COPD, DKA, ARF, appy, cholecystitis, CVA, Diverticulitis, Homicidal, Suicidal, threat to staff... and all critical care pts) @ -No (Verónica Odonnell) Was pt. sent in by a medical professional or institution (, PA, SENIOR TECHNICAL ARCHITECT, urgent care, hospital, or senior care...) When possible be specific @ -[No] Did you speak to anyone other than the patient for history (EMS, parent, family, police, friend...)? What history was obtained from this source @ -[No] Did you review nursing and triage notes (agree or disagree)? Why? @ -[I reviewed and agree with nursing and triage notes] Were old charts reviewed (outside hosp., previous admission, EMS record, old EKG, old radiological studies, urgent care reports/EKG's, senior care records)? Report findings @ -[No old charts were reviewed] Differential Diagnosis (chest pain, altered mental status, abdominal pain women, abdominal pain men, vaginal bleeding, weakness, fever, dyspnea, syncope, headache, dizziness, GI bleed, back pain, seizure, CVA, palpatations, mental health, musculoskeletal)? @ -[Differential Palpitations Ventricular arrhythmias, atrial arrhythmias, myocardial infarction, anemia, thyrotoxicosis, electrolyte imbalance, hypokalemia, pulmonary embolism, pulmonary disease, drugs, alcohol, anxiety, stress.... This is not meant to be an all-inclusive list. EKG interpreted by me (3pts min.). @ -[As above] X-rays interpreted by me (1pt min.). @ -[None done] CT interpreted by me (1pt min.). @ -[None done] U/S interpreted by me (1pt. min.). @ -[None done] What testing was considered but not performed or refused? (CT, X-rays, U/S, labs)? Why? @ -[None] What meds were considered but not given or refused? Why? @ -[None] Did you discuss the management of the patient with other professionals (prof marrero i.e. , PA, SENIOR TECHNICAL ARCHITECT, lab, RT, psych nurse, social services aide, clin application specialist, teacher, agricultural technical officer, behavioral health case manager)? Give summary @ -[No] Was smoking cessation discussed for >3mins.? @ -[No] Was critical care preformed (if so, how long)? @ -[No] Were there social determinants of health that impacted care today? How? (Homelessness, low income, unemployed, alcoholism, drug addiction, transportation, low edu. Level, literacy, decrease access to med. care, snf, rehab)? @ -[No] Was there de-escalation of care discussed even if they declined (Discuss DNR or withdrawal of care, Hospice)? DNR status @ -[No] What co-morbidities impacted this encounter? (DM, HTN, Smoking, COPD, CAD, Cancer, CVA, ARF, Chemo, Hep., AIDS, mental health diagnosis, sleep apnea, morbid obesity)? @ -[None] Was patient admitted / discharged? Hospital course, mention meds given and route, prescriptions, significant lab abnormalities, going to OR and other pertinent info. @ -[This patient is a 78-year-old woman here with palpitations and other symptoms. The patient's workup pending labs at the time of shift change in signout to the oncoming physician (Feroz Ruiz) - Lab Data Lab Results 12/11/23 12/11/23 12/11/23 Range/Units 02:56 02:56 06:45 WBC 14.9 H (3.8-10.6) k/uL RBC 4.06 (3.80-5.40) m/uL Hgb 11.7 (11.4-16.0) gm/dL Hct 36.9 (34.0-46.0) % MCV 90.9 (80.0-100.0) fL MCH 28.8 (25.0-35.0) pg MCHC 31.6 (31.0-37.0) g/dL RDW 13.6 (11.5-15.5) % Plt Count 531 H (150-450) k/uL MPV 8.3 Neutrophils % 73 % Lymphocytes % 17 % Monocytes % 7 % Eosinophils % 2 % Basophils % 1 % Neutrophils # 10.8 H (1.3-7.7) k/uL Lymphocytes # 2.5 (1.0-4.8) k/uL Monocytes # 1.0 (0-1.0) k/uL Eosinophils # 0.2 (0-0.7) k/uL Basophils # 0.1 (0-0.2) k/uL Sodium 122 L (137-145) mmol/L Potassium 5.1 (3.5-5.1) mmol/L Chloride 89 L (98-107) mmol/L Carbon Dioxide 29 (22-30) mmol/L Anion Gap 4 mmol/L BUN 24 H (7-17) mg/dL Creatinine 0.84 (0.52-1.04) mg/dL Est GFR (CKD-EPI)AfAm 76 (>60 ml/min/1.73 sqM) Est GFR (CKD-EPI)NonAf 66 (>60 ml/min/1.73 sqM) Glucose 223 H (74-99) mg/dL POC Glucose (mg/dL) (70-110) mg/dL POC Glu Tannery Worker ID Calcium 9.4 (8.4-10.2) mg/dL Magnesium 1.3 L (1.6-2.3) mg/dL Total Bilirubin 0.6 (0.2-1.3) mg/dL AST 57 H (14-36) U/L ALT 36 H (4-34) U/L Alkaline Phosphatase 231 H (38-126) U/L Troponin I <0.012 (0.000-0.034) ng/mL Total Protein 7.0 (6.3-8.2) g/dL Albumin 3.6 (3.5-5.0) g/dL 12/11/23 Range/Units 10:32 WBC (3.8-10.6) k/uL RBC (3.80-5.40) m/uL Hgb (11.4-16.0) gm/dL Hct (34.0-46.0) % MCV (80.0-100.0) fL MCH (25.0-35.0) pg MCHC (31.0-37.0) g/dL RDW (11.5-15.5) % Plt Count (150-450) k/uL MPV Neutrophils % % Lymphocytes % % Monocytes % % Eosinophils % % Basophils % % Neutrophils # (1.3-7.7) k/uL Lymphocytes # (1.0-4.8) k/uL Monocytes # (0-1.0) k/uL Eosinophils # (0-0.7) k/uL Basophils # (0-0.2) k/uL Sodium (137-145) mmol/L Potassium (3.5-5.1) mmol/L Chloride (98-107) mmol/L Carbon Dioxide (22-30) mmol/L Anion Gap mmol/L BUN (7-17) mg/dL Creatinine (0.52-1.04) mg/dL Est GFR (CKD-EPI)AfAm (>60 ml/min/1.73 sqM) Est GFR (CKD-EPI)NonAf (>60 ml/min/1.73 sqM) Glucose (74-99) mg/dL POC Glucose (mg/dL) 277 H (70-110) mg/dL POC Glu Tannery Worker ID July Calcium (8.4-10.2) mg/dL Magnesium (1.6-2.3) mg/dL Total Bilirubin (0.2-1.3) mg/dL AST (14-36) U/L ALT (4-34) U/L Alkaline Phosphatase (38-126) U/L Troponin I (0.000-0.034) ng/mL Total Protein (6.3-8.2) g/dL Albumin (3.5-5.0) g/dL Disposition Is patient prescribed a controlled substance at d/c from ED?: No Time of Disposition: 10:25 Decision to Admit Reason: Admit from EC Decision Date: 12/11/23 Decision Time: 10:25 <Verónica Odonnell - Last Filed: 12/11/23 10:29> <Feroz Ruiz - Last Filed: 12/29/23 08:03> Clinical Impression: Hypomagnesemia, Hyponatremia, Palpitations Disposition: ADMITTED IP TO THIS [facility] Condition: Stable
[2023-12-11] MEDS: MAGNESIUM SULFATE-D5W PMX 1 GM in DEXTROSE/WATER 1 100ML.BAG IVPB ONE (08:31)
[2023-12-11 09:55] LABS: Basophils # (A) 0.1 k/uL (0-0.2); Basophils % (A) 1 %; Eosinophils # (A) 0.2 k/uL (0-0.7); Eosinophils % (A) 2 %; HCT 36.9 % (34.0-46.0); HGB 11.7 gm/dL (11.4-16.0); Lymphocytes # (A) 2.5 k/uL (1.0-4.8); Lymphocytes % (A) 17 %; MCH 28.8 pg (25.0-35.0); MCHC 31.6 g/dL (31.0-37.0); MCV 90.9 fL (80.0-100.0); Mean Platelet Volume 8.3; Monocytes % (A) 7 %; Neutrophils # (A) 10.8 k/uL (1.3-7.7); Neutrophils % (A) 73 %; Platelet Count 531 k/uL (150-450); RBC 4.06 m/uL (3.80-5.40); RDW 13.6 % (11.5-15.5); WBC 14.9 k/uL (3.8-10.6)
[2023-12-11 10:37] LABS: Glucose,Whole Blood 277 mg/dL (70-110)
[2023-12-11] MEDS ORDERED: NALOXONE 0.4 MG/ML 1 ML VIAL IV PRN (10:38)
[2023-12-11] MEDS: FUROSEMIDE 10 MG/ML 10 ML VIAL IV STA (10:51)
[2023-12-11 10:56] LABS: ALT 36 U/L (4-34); AST 57 U/L (14-36); African American GFR (CKD) 76 (>60 ml/min/1.73 sqM); Albumin 3.6 g/dL (3.5-5.0); Alkaline Phosphatase 231 U/L (38-126); Anion Gap 4 mmol/L; Blood Urea Nitrogen 24 mg/dL (7-17); Calcium 9.4 mg/dL (8.4-10.2); Carbon Dioxide 29 mmol/L (22-30); Chloride 89 mmol/L (98-107); Glucose 223 mg/dL (74-99); Magnesium 1.3 mg/dL (1.6-2.3); Non-African American GFR(CKD) 66 (>60 ml/min/1.73 sqM); Potassium 5.1 mmol/L (3.5-5.1); Sodium 122 mmol/L (137-145); Total Bilirubin 0.6 mg/dL (0.2-1.3)
[2023-12-11] MEDS: MAGNESIUM SULFATE-D5W PMX 1 GM in DEXTROSE/WATER 1 100ML.BAG IVPB SCH (10:59)
--- NOTE | 2023-12-11 11:40 | P.NPCON ---
History of Present Illness - Reason for Consult hyponatremia - History of Present Illness Reason for consultation: Hyponatremia History of present illness: Patient is 78-year-old female seen in renal consultation for hyponatremia. Patient was seen and examined in the emergency room. Patient sodium level on admission was 122. Patient said previous episodes of hyponatremia in the past. Patient came to the hospital due to feeling irregular heartbeats. She also complains of muscle spasms. Magnesium was low at 1.3 which is being replaced. She did receive a dose of IV Lasix 60 mg once in the ER. Patient does admit to worsening of lower extremity edema. She does take Lasix at home. I do not see any thiazide diuretics on her home medication list. Renal function is at baseline. Patient has a longstanding history of diabetes. She denies use of nonsteroidals. Denies family history of renal disease. Denies history of coronary artery disease. No vomiting or diarrhea. Patient says she monitors her fluid intake and has been drinking less than 64 ounces per day. Oral intake has been just fair. Patient states she has a hard time swallowing at times. She does have a history of diastolic CHF with moderate tricuspid regurgitation and moderate pulmonary hypertension on echocardiogram done in July 2022. Patient does have a history of hypertension. Most recent blood pressure 118/84. She is currently on room air. Vital signs are stable. General: No acute distress. HEENT: Head exam is unremarkable. LUNGS: No audible rhonchi or wheezes. HEART: Rate and Rhythm are regular. ABDOMEN: Obese, nontender. EXTREMITITES: 2+ edema. Past Medical History Past Medical History: Asthma, Diabetes Mellitus, GERD/Reflux, Hyperlipidemia, Hypertension Additional Past Medical History / Comment(s): Zenker's diverticulum, hemrroids History of Any Multi-Drug Resistant Organisms: None Reported Past Surgical History: Cholecystectomy, Hysterectomy, Orthopedic Surgery, Tonsillectomy, Tubal Ligation Additional Past Surgical History / Comment(s): right knee. right cataract. Past Anesthesia/Blood Transfusion Reactions: No Reported Reaction Past Psychological History: Anxiety Smoking Status: Never smoker Past Alcohol Use History: None Reported Past Drug Use History: None Reported - Past Family History Mother Family Medical History: Cancer Additional Family Medical History / Comment(s): . Father Family Medical History: Cancer Additional Family Medical History / Comment(s): prostate Medications and Allergies Home Medications Medication Instructions Recorded Confirmed Type Pioglitazone [Actos] 30 mg PO DAILY 03/11/16 08/05/22 History atenoloL [Tenormin] 50 mg PO BID@0630,1800 03/11/16 08/05/22 History metFORMIN HCL [Glucophage] 1,000 mg PO W/SUPPER 03/11/16 08/05/22 History cloNIDine HCL [Catapres] 0.2 mg PO HS tab 03/28/16 08/05/22 Rx ALPRAZolam [Xanax] 0.125 mg PO BID@0630,1800 10/02/16 08/05/22 History Insulin Glargine,Hum.rec.anlog 1 dose SQ HS 10/24/16 08/05/22 History [Lantus Solostar Pen] Pantoprazole [Protonix] 40 mg PO W/SUPPER 12/19/21 08/05/22 History Losartan Potassium 100 mg PO DAILY #14 tablet 12/23/21 08/05/22 Rx Aspirin 81 mg PO DAILY #30 tab 07/25/22 08/05/22 Rx Furosemide [Lasix] 40 mg PO DAILY #30 tablet 07/25/22 08/05/22 Rx amLODIPine [Norvasc] 5 mg PO DAILY #30 tab 07/25/22 08/05/22 Rx ALPRAZolam [Xanax] 0.125 - 0.25 mg PO DAILY PRN 08/05/22 08/05/22 History Atorvastatin [Lipitor] 10 mg PO HS #90 tab 08/07/22 Rx Magnesium Oxide [Mag-Ox] 400 mg PO BID tab 08/07/22 Rx hydrALAZINE HCL [Apresoline] 25 mg PO BID #60 tab 08/07/22 Rx Allergies Allergy/AdvReac Type Severity Reaction Status Date / Time cephalexin Allergy Unknown Verified 08/05/22 16:26 ciprofloxacin [From Cipro] Allergy Anaphylaxis Verified 08/05/22 16:26 codeine Allergy Chest Pain Verified 08/05/22 16:26 diclofenac Allergy Anaphylaxis Verified 08/05/22 16:26 difluprednate [From Durezol] Allergy Anaphylaxis Verified 08/05/22 16:26 dog dander Allergy Unknown Verified 08/05/22 16:26 doxycycline [From Vibramycin] Allergy Unknown Verified 08/05/22 16:26 epinephrine Allergy Unknown Verified 08/05/22 16:26 erythromycin base Allergy Unknown Verified 08/05/22 16:26 Fish Containing Products Allergy Anaphylaxis Verified 08/05/22 16:26 latex Allergy Anaphylaxis Verified 08/05/22 16:26 metronidazole [From Flagyl] Allergy Anaphylaxis Verified 08/05/22 16:26 mold Allergy Unknown Verified 08/05/22 16:26 nepafenac Allergy Anaphylaxis Verified 08/05/22 16:26 ofloxacin [From Floxin] Allergy Anaphylaxis Verified 08/05/22 16:26 Penicillins Allergy Unknown Verified 08/05/22 16:26 Childhood shellfish derived [Shellfish] Allergy Anaphylaxis Verified 08/05/22 16:26 strawberry Allergy Burning & Verified 08/05/22 16:26 swelling Thiazides Allergy Unknown Verified 08/05/22 16:26 tomato AdvReac Mild Unknown Verified 08/05/22 16:26 Childhood bandages Allergy Unknown Uncoded 07/20/22 18:51 dust Allergy Unknown Uncoded 07/20/22 18:51 seafood Allergy Anaphylaxis Uncoded 07/20/22 18:51 Physical Exam Vitals: Vital Signs Temp Pulse Resp BP Pulse Ox 12/11/23 10:50 91 16 118/84 97 12/11/23 09:00 16 139/74 12/11/23 08:03 76 16 118/101 97 12/11/23 06:03 97.7 F 77 20 158/84 97 12/11/23 05:22 60 18 143/88 97 12/11/23 02:37 97.8 F 61 18 117/76 97 Intake and Output 12/10/23 12/11/23 12/11/23 22:59 06:59 14:59 Other: Weight 108.862 kg Results - Lab Results Most recent lab results Calcium 9.4 mg/dL (8.4-10.2) 12/11/23 02:56 Magnesium 1.3 mg/dL (1.6-2.3) L 12/11/23 02:56 12/11/23 02:56 12/11/23 02:56 Assessment and Plan Plan: Assessment: 1. Hyponatremia, hypervolemic. 2. Hypomagnesemia from diuretic use. 3. Benign hypertension. 4. Volume overload. 5. Acute on chronic diastolic CHF and moderate tricuspid regurgitation and pulmonary hypertension. 6. Diabetes mellitus. 7. Morbid obesity. Plan: Add IV Lasix 40 mg twice daily. Add 1500 cc fluid restriction. Replace magnesium. Check serum and urine osmolality and urine sodium level. Check TSH. Repeat sodium level this afternoon. Thank you for the consultation. I will continue to follow the patient with you during her hospital stay.
[2023-12-11 16:50] LABS: Glucose,Whole Blood 319 mg/dL (70-110)
[2023-12-11 17:17] LABS: African American GFR (CKD) 69 (>60 ml/min/1.73 sqM); Anion Gap 8 mmol/L; Blood Urea Nitrogen 25 mg/dL (7-17); Calcium 9.9 mg/dL (8.4-10.2); Carbon Dioxide 30 mmol/L (22-30); Chloride 88 mmol/L (98-107); Glucose 319 mg/dL (74-99); Non-African American GFR(CKD) 60 (>60 ml/min/1.73 sqM); Sodium 126 mmol/L (137-145)
[2023-12-11] MEDS: atenoloL 50 MG TAB PO SCH (18:40)
[2023-12-11] MEDS: ALPRAZolam 0.25 MG TAB PO SCH (18:40)
[2023-12-11] MEDS: FUROSEMIDE 10 MG/ML 4 ML VIAL IV SCH (18:40)
[2023-12-11 20:01] LABS: Glucose,Whole Blood 433 mg/dL (70-110)
[2023-12-11] MEDS: metFORMIN 500 MG TAB PO SCH (20:45)
[2023-12-11] MEDS ORDERED: DEXTROSE 50% SYRINGE 50 ML IVP PRN ×2 (20:49)
[2023-12-11] MEDS: cloNIDine HCL 0.2 MG TAB PO SCH (21:45)
[2023-12-11] MEDS: INSULIN DETEMIR (LEVEMIR) 100 UNIT/ML SYR SQ SCH (21:46)
[2023-12-11] MEDS: INSULIN ASPART (NovoLOG) 100 UNIT/ML VIAL SQ SCH (21:47)
[2023-12-11 23:22] LABS: Glucose,Whole Blood 271 mg/dL (70-110)
[2023-12-12 00:04] LABS: Glucose,Whole Blood 294 mg/dL (70-110)
[2023-12-12 01:29] LABS: Glucose,Whole Blood 220 mg/dL (70-110)
[2023-12-12 06:02] LABS: Glucose,Whole Blood 208 mg/dL (70-110)
[2023-12-12 08:21] LABS: Basophils # (A) 0.2 k/uL (0-0.2); Basophils % (A) 1 %; Eosinophils # (A) 0.2 k/uL (0-0.7); Eosinophils % (A) 1 %; HCT 36.4 % (34.0-46.0); HGB 11.6 gm/dL (11.4-16.0); Lymphocytes # (A) 3.8 k/uL (1.0-4.8); Lymphocytes % (A) 22 %; MCH 28.9 pg (25.0-35.0); MCHC 31.7 g/dL (31.0-37.0); Mean Platelet Volume 7.4; Monocytes % (A) 6 %; Neutrophils # (A) 11.5 k/uL (1.3-7.7); Neutrophils % (A) 68 %; Platelet Count 472 k/uL (150-450); RDW 13.8 % (11.5-15.5)
[2023-12-12 08:40] LABS: African American GFR (CKD) 44 (>60 ml/min/1.73 sqM); Anion Gap 8 mmol/L; Blood Urea Nitrogen 33 mg/dL (7-17); Calcium 9.8 mg/dL (8.4-10.2); Carbon Dioxide 28 mmol/L (22-30); Chloride 89 mmol/L (98-107); Glucose 238 mg/dL (74-99); Magnesium 1.8 mg/dL (1.6-2.3); Non-African American GFR(CKD) 38 (>60 ml/min/1.73 sqM); Sodium 125 mmol/L (137-145)
[2023-12-12] MEDS: APIXABAN 5 MG TAB PO SCH (09:28)
[2023-12-12] MEDS: LOSARTAN 50 MG TAB PO SCH (09:28)
[2023-12-12] MEDS: amLODIPine 5 MG TAB PO SCH (09:28)
[2023-12-12] MEDS: PIOGLITAZONE 15 MG TAB PO SCH (09:28)
--- NOTE | 2023-12-12 09:51 | P.CRDCN ---
History of Present Illness Consult date: 12/12/23 Reason for Consult (text): AECHF History of present illness: This is a 78-year-old female with past medical history of hypertension, hyperlipidemia, diabetes mellitus type 2, obesity, obstructive sleep apnea, chronic diastolic heart failure, hypomagnesemia, hyponatremia. Patient presented to [facility] center due to heart beating irregularly. That had been going on intermittently for couple of days and seems to be more persistent. Patient was found to have hyponatremia and admitted to the hospital and nephrology is following. Blood pressure 109/57, heart rate in the 50s, afebrile, pulse ox 97% on room air. Patient went into A-fib with RVR last evening up to the 140s. She was started on her home cardiac medications. Patient has converted to sinus rhythm. Patient does not have any previous CAD history and does not follow with a drug and alcohol counsellor. Discussed anticoagulation with the patient and she is concerned because she states she has significant bleeding from her hemorrhoids including clots at times. Patient agreed to start Eliquis. EKG: Atrial fibrillation at 130 bpm, telemetry sinus rhythm Laboratory studies: WBC 14.9, hemoglobin 1.7, platelet count 531. Initial sodium 122, repeat 126, BUN 25, creatinine 0.92, potassium 5. Troponin negative x 1. AST 57, ALT 36, alkaline phosphatase 231. Home cardiac medications: Amlodipine 5 mg daily, atenolol 50 mg twice daily, clonidine 0.2 mg at bedtime, Lasix 40 mg daily, losartan 100 mg daily at 11:00, magnesium oxide 400 mg daily at 1500. Echocardiogram performed in July 2023 revealed EF of 55%, LV enlargement with mild hypertrophy. Moderate pulmonary hypertension. Review Of Systems: At the time of my exam: CONSTITUTIONAL: Denies fever or chills. HEENT: Denies blurred vision, vision changes, or eye pain. Denies hemoptysis CARDIOVASCULAR: Denies chest pain. Denies orthopnea. Denies PND. Denies palpitations RESPIRATORY: Denies shortness of breath. GASTROINTESTINAL: Denies abdominal pain. Denies nausea or vomiting. HEMATOLOGIC: Denies bleeding disorders. GENITOURINARY: Denies any blood in urine. SKIN: Denies puritis. Denies rash. Physical examination: Gen: This is a 78-year-old female in no acute distress VS: reviewed HEENT: Head is atraumatic, normocephalic. Pupils equal, round. Sclerae is anicteric. NECK: Supple. No JVD. LUNGS: Clear to auscultation. No wheezes or rhonchi. No intercostal retractions. HEART: Regular rate and rhythm. No murmur. ABDOMEN: Soft No tenderness. EXTREMITIES: No pedal edema. No calf tenderness. NEUROLOGICAL: Patient is awake, alert and oriented x3. Assessment: Hypervolemic hyponatremia Hypomagnesemia New onset paroxysmal atrial fibrillation with RVR, currently in a sinus rhythm Hypertension Chronic diastolic heart failure Diabetes mellitus type 2 Morbid obesity Plan: Resume patient's home cardiac medications Losartan is on hold Continue IV Lasix 40 mg every 12 hours per nephrology Monitor ARMANDO, daily weights, electrolytes and renal function Obtain 2-D echocardiogram and Doppler study to assess cardiac structure and function No evidence of acute heart failure on exam Further recommendations to follow based upon clinical course Thank you kindly for this consultation. Nurse practitioner note has been reviewed, I agree with documented findings and plan of care. Patient was seen and examined. Past Medical History Past Medical History: Asthma, Diabetes Mellitus, GERD/Reflux, Hyperlipidemia, Hypertension Additional Past Medical History / Comment(s): Zenker's diverticulum, hemrroids History of Any Multi-Drug Resistant Organisms: None Reported Past Surgical History: Cholecystectomy, Hysterectomy, Orthopedic Surgery, Tonsillectomy, Tubal Ligation Additional Past Surgical History / Comment(s): right knee. right cataract. Past Anesthesia/Blood Transfusion Reactions: No Reported Reaction Smoking Status: Never smoker - Past Family History Mother Family Medical History: Cancer Additional Family Medical History / Comment(s): . Father Family Medical History: Cancer Additional Family Medical History / Comment(s): prostate Medications and Allergies Home Medications Medication Instructions Recorded Confirmed Type Pioglitazone [Actos] 15 mg PO DAILY@1100 03/11/16 12/11/23 History atenoloL [Tenormin] 50 mg PO BID@1100,2100 03/11/16 12/11/23 History metFORMIN HCL [Glucophage] 1,000 mg PO BID@1500,2100 03/11/16 12/11/23 History Insulin Glargine,Hum.rec.anlog 7 - 12 units SQ HS 10/24/16 12/11/23 History [Lantus Solostar Pen] Furosemide [Lasix] 40 mg PO DAILY #30 tablet 07/25/22 12/11/23 Rx ALPRAZolam [Xanax] 0.125 mg PO BID@1100,2100 08/05/22 12/11/23 History Acetaminophen Tab [Tylenol Tab] 500 mg PO DAILY@1500 12/11/23 12/11/23 History Losartan Potassium 100 mg PO DAILY@1100 12/11/23 12/11/23 History Magnesium Oxide [Mag-Ox] 400 mg PO DAILY@1500 12/11/23 12/11/23 History amLODIPine [Norvasc] 5 mg PO DAILY@1100 12/11/23 12/11/23 History cloNIDine HCL [Catapres] 0.2 mg PO HS 12/11/23 12/11/23 History Allergies Allergy/AdvReac Type Severity Reaction Status Date / Time cephalexin Allergy Unknown Verified 12/11/23 12:37 ciprofloxacin [From Cipro] Allergy Anaphylaxis Verified 12/11/23 12:37 codeine Allergy Chest Pain Verified 12/11/23 12:37 diclofenac Allergy Anaphylaxis Verified 12/11/23 12:37 difluprednate [From Durezol] Allergy Anaphylaxis Verified 12/11/23 12:37 dog dander Allergy Unknown Verified 12/11/23 12:37 doxycycline [From Vibramycin] Allergy Unknown Verified 12/11/23 12:37 epinephrine Allergy Unknown Verified 12/11/23 12:37 erythromycin base Allergy Unknown Verified 12/11/23 12:37 Fish Containing Products Allergy Anaphylaxis Verified 12/11/23 12:37 latex Allergy Anaphylaxis Verified 12/11/23 12:37 metronidazole [From Flagyl] Allergy Anaphylaxis Verified 12/11/23 12:37 mold Allergy Unknown Verified 12/11/23 12:37 nepafenac Allergy Anaphylaxis Verified 12/11/23 12:37 ofloxacin [From Floxin] Allergy Anaphylaxis Verified 12/11/23 12:37 Penicillins Allergy Unknown Verified 12/11/23 12:37 Childhood shellfish derived [Shellfish] Allergy Anaphylaxis Verified 12/11/23 12:37 strawberry Allergy Burning & Verified 12/11/23 12:37 swelling Thiazides Allergy Unknown Verified 12/11/23 12:37 tomato AdvReac Mild Unknown Verified 12/11/23 12:37 Childhood bandages Allergy Unknown Uncoded 12/11/23 12:37 dust Allergy Unknown Uncoded 12/11/23 12:37 seafood Allergy Anaphylaxis Uncoded 12/11/23 12:37 Physical Exam Vitals: Vital Signs Temp Pulse Pulse Resp BP BP Pulse Ox 12/12/23 04:00 97.7 F 58 L 19 109/57 97 12/12/23 02:00 56 L 12/12/23 00:00 97.7 F 62 19 101/67 97 12/11/23 20:00 97.8 F 110 H 20 131/78 97 12/11/23 18:10 97.5 F L 131 H 20 119/86 97 12/11/23 16:03 97.6 F 112 H 17 136/68 96 12/11/23 14:59 98 20 156/96 96 12/11/23 10:50 91 16 118/84 97 12/11/23 09:00 16 139/74 12/11/23 08:03 76 16 118/101 97 Intake and Output 12/11/23 12/12/23 12/12/23 22:59 06:59 14:59 Output Total 700 250 Balance -700 -250 Output: Urine 700 250 Other: Voiding Method Toilet Toilet # Voids 1 1 Weight 108.862 kg Results 12/12/23 07:45 12/12/23 07:45 Cardiac Enzymes 12/11/23 12/11/23 Range/Units 02:56 06:45 AST 57 H (14-36) U/L Troponin I <0.012 (0.000-0.034) ng/mL CBC 12/11/23 Range/Units 02:56 WBC 14.9 H (3.8-10.6) k/uL RBC 4.06 (3.80-5.40) m/uL Hgb 11.7 (11.4-16.0) gm/dL Hct 36.9 (34.0-46.0) % Plt Count 531 H (150-450) k/uL Comprehensive Metabolic Panel 12/11/23 12/11/23 Range/Units 02:56 16:44 Sodium 122 L 126 L (137-145) mmol/L Potassium 5.1 5.0 (3.5-5.1) mmol/L Chloride 89 L 88 L (98-107) mmol/L Carbon Dioxide 29 30 (22-30) mmol/L BUN 24 H 25 H (7-17) mg/dL Creatinine 0.84 0.92 (0.52-1.04) mg/dL Glucose 223 H 319 H (74-99) mg/dL Calcium 9.4 9.9 (8.4-10.2) mg/dL AST 57 H (14-36) U/L ALT 36 H (4-34) U/L Alkaline Phosphatase 231 H (38-126) U/L Total Protein 7.0 (6.3-8.2) g/dL Albumin 3.6 (3.5-5.0) g/dL Current Medications Generic Name Dose Route Start Last Admin Trade Name Freq PRN Reason Stop Dose Admin Acetaminophen 500 mg 12/12/23 15:00 Acetaminophen Tab 500 Mg Tab PO DAILY@1500 [facility] Alprazolam 0.125 mg 12/11/23 21:00 12/11/23 18:40 Alprazolam 0.25 Mg Tab PO 0.125 mg BID@1100,2100 [facility] Administration Amlodipine Besylate 5 mg 12/12/23 11:00 Amlodipine 5 Mg Tab PO DAILY@1100 [facility] Atenolol 50 mg 12/11/23 21:00 12/11/23 18:40 Atenolol 50 Mg Tab PO 50 mg BID@1100,2100 [facility] Administration Clonidine 0.2 mg 12/11/23 21:00 12/11/23 21:45 Clonidine Hcl 0.2 Mg Tab PO 0.2 mg HS DREW Administration Dextrose/Water 25 ml 12/11/23 20:49 Dextrose 50% Syringe 50 Ml IVP PER PROTOCOL PRN Hypoglycemia Protocol Dextrose/Water 50 ml 12/11/23 20:49 Dextrose 50% Syringe 50 Ml IVP PER PROTOCOL PRN Hypoglycemia Protocol Furosemide 40 mg 12/11/23 21:00 12/11/23 18:40 Furosemide 10 Mg/Ml 4 Ml Vial IV 40 mg Q12HR DREW Administration Insulin Aspart 0 unit 12/11/23 21:00 12/12/23 06:22 Insulin Aspart (Novolog) 100 Unit/Ml Vial SQ Not Given ACHS [facility] Protocol Insulin Detemir 12 unit 12/11/23 21:00 12/11/23 21:46 Insulin Detemir (Levemir) 100 Unit/Ml Syr SQ 10 unit HS DREW Administration Losartan Potassium 100 mg 12/12/23 11:00 Losartan 50 Mg Tab PO DAILY@1100 [facility] Magnesium Oxide 400 mg 12/12/23 15:00 Magnesium Oxide 400 Mg Tab PO DAILY@1500 [facility] Metformin HCl 1,000 mg 12/11/23 21:00 12/11/23 20:45 Metformin 500 Mg Tab PO 1,000 mg BID@1500,2100 [facility] Administration Naloxone HCl 0.2 mg 12/11/23 10:38 Naloxone 0.4 Mg/Ml 1 Ml Vial IV Q2M PRN Opioid Reversal Pioglitazone HCl 15 mg 12/12/23 11:00 Pioglitazone 15 Mg Tab PO DAILY@1100 [facility] Intake and Output 12/11/23 12/12/23 12/12/23 22:59 06:59 14:59 Output Total 700 250 Balance -700 -250 Output: Urine 700 250 Other: Voiding Method Toilet Toilet # Voids 1 1 Weight 108.862 kg 12/11/23 02:56 12/11/23 16:44
--- NOTE | 2023-12-12 10:14 | P.PN ---
Subjective Patient is seen in follow-up for hyponatremia. Currently on IV Lasix. Sodium level 125 this morning. Has been voiding. Denies chest pain or shortness of breath. Vital signs are stable. General: No acute distress. HEENT: Head exam is unremarkable. On room air. LUNGS: No audible rhonchi or wheezes. HEART: Rate and Rhythm are regular. ABDOMEN: Obese, nontender. EXTREMITITES: 2+ edema. Objective - Vital Signs Vital signs: Vital Signs Temp 97.9 F 12/12/23 09:13 Pulse 56 L 12/12/23 09:13 Resp 18 12/12/23 09:13 BP 129/75 12/12/23 09:13 Pulse Ox 97 12/12/23 09:13 FiO2 Intake & Output 12/11/23 12/12/23 12/12/23 18:59 06:59 18:59 Intake Total 210 Output Total 950 200 Balance -950 10 Weight 108.862 kg Intake: IV 10 Invasive Line 1 10 Oral 200 Output: Urine 950 200 Other: Voiding Method Toilet Toilet # Voids 1 1 - Labs CBC & Chem 7: 12/12/23 07:45 12/12/23 07:45 Labs: Abnormal Lab Results - Last 24 Hours (Table) 12/11/23 12/11/23 12/11/23 Range/Units 02:56 10:32 11:48 WBC (3.8-10.6) k/uL Plt Count (150-450) k/uL Neutrophils # (1.3-7.7) k/uL Sodium 122 L (137-145) mmol/L Chloride 89 L (98-107) mmol/L BUN 24 H (7-17) mg/dL Creatinine (0.52-1.04) mg/dL Glucose 223 H (74-99) mg/dL POC Glucose (mg/dL) 277 H (70-110) mg/dL Magnesium 1.3 L (1.6-2.3) mg/dL AST 57 H (14-36) U/L ALT 36 H (4-34) U/L Alkaline Phosphatase 231 H (38-126) U/L TSH (0.465-4.680) mIU/L Urine Osmolality 251 L (400-1100) mOsm/kg 12/11/23 12/11/23 12/11/23 Range/Units 16:44 16:49 20:00 WBC (3.8-10.6) k/uL Plt Count (150-450) k/uL Neutrophils # (1.3-7.7) k/uL Sodium 126 L (137-145) mmol/L Chloride 88 L (98-107) mmol/L BUN 25 H (7-17) mg/dL Creatinine (0.52-1.04) mg/dL Glucose 319 H (74-99) mg/dL POC Glucose (mg/dL) 319 H 433 H (70-110) mg/dL Magnesium (1.6-2.3) mg/dL AST (14-36) U/L ALT (4-34) U/L Alkaline Phosphatase (38-126) U/L TSH (0.465-4.680) mIU/L Urine Osmolality (400-1100) mOsm/kg 12/11/23 12/12/23 12/12/23 Range/Units 23:21 00:03 01:28 WBC (3.8-10.6) k/uL Plt Count (150-450) k/uL Neutrophils # (1.3-7.7) k/uL Sodium (137-145) mmol/L Chloride (98-107) mmol/L BUN (7-17) mg/dL Creatinine (0.52-1.04) mg/dL Glucose (74-99) mg/dL POC Glucose (mg/dL) 271 H 294 H 220 H (70-110) mg/dL Magnesium (1.6-2.3) mg/dL AST (14-36) U/L ALT (4-34) U/L Alkaline Phosphatase (38-126) U/L TSH (0.465-4.680) mIU/L Urine Osmolality (400-1100) mOsm/kg 12/12/23 12/12/23 12/12/23 Range/Units 06:01 07:45 07:45 WBC 17.0 H (3.8-10.6) k/uL Plt Count 472 H (150-450) k/uL Neutrophils # 11.5 H (1.3-7.7) k/uL Sodium 125 L (137-145) mmol/L Chloride 89 L (98-107) mmol/L BUN 33 H (7-17) mg/dL Creatinine 1.33 H (0.52-1.04) mg/dL Glucose 238 H (74-99) mg/dL POC Glucose (mg/dL) 208 H (70-110) mg/dL Magnesium (1.6-2.3) mg/dL AST (14-36) U/L ALT (4-34) U/L Alkaline Phosphatase (38-126) U/L TSH 5.540 H (0.465-4.680) mIU/L Urine Osmolality (400-1100) mOsm/kg Assessment and Plan Plan: Assessment: 1. Hyponatremia, hypervolemic. Urine sodium 74 and urine osmolality 251. TSH slightly high at 5.5. 2. Hypomagnesemia from diuretic use. Replaced. Better. 3. Benign hypertension. Controlled. 4. Volume overload. Improving with diuresis. 5. Acute on chronic diastolic CHF and moderate tricuspid regurgitation and pulmonary hypertension. 6. Diabetes mellitus. 7. Morbid obesity. 8. Acute kidney injury secondary to vasomotor nephropathy from diuresis. Creatinine 1.33 today. No evidence of urinary retention. Plan: Decrease frequency of Lasix to 40 mg IV once daily. Maintain 1500 cc fluid restriction. Repeat sodium level this afternoon. If no improvement, will give a dose of Samsca. Follow-up echocardiogram.
[2023-12-12 11:11] LABS: Glucose,Whole Blood 216 mg/dL (70-110)
[2023-12-12 14:16] LABS: T4, Free (Free Thyroxine) 1.83 ng/dL (0.78-2.19)
--- NOTE | 2023-12-12 14:54 | P.HPIM ---
History of Present Illness H&P Date: 12/11/23 Chief Complaint: Acute diastolic heart failure/hyponatremia HISTORY OF PRESENT ILLNESS: This is a 78 year old female with a previous medical history significant for hypertension and hypertensive cardiovascular disease, hyperlipidemia, diabetes mellitus type 2, and diabetic polyneuropathy, GERD with duodenal ulcer, and obesity with obstructive sleep apnea, and obesity hypoventilation syndrome, chronic diastolic heart filure, patient was last hospitalized at [facility] about a year ago with accelerated hypertension and hypervolemic hyponatremia and was sen by cardiology and nephrology , patient has been complaining of increased swelling both lower ex tremities associated with increased shortness of breath, she was having some palpitation in her chest, she ended up coming to the emergency department at [facility], initial EKG did show evidence of atrial fibrillation with rapid ventricular response, the subsequent EKG did show evidence of sinus tachycardia with PACs, nevertheless patient never started on anticoagulation at that time, patient was started back on atenolol 50 mg orally twice every day as well as her losartan 100 mg once every day along with the clonidine, and she was found to have hypervolemic hyponatremia, her sodium was 122, she was started on Lasix 60 mg IV push x 1 followed by 40 mg IV push every 12 hours, patient has been seen in consultation by cardiology as well as nephrology and she was admitted to the hospital for acute diastolic heart failure due to atrial fibrillation with rapid ventricular response as well as hypervolemic hyponatremia. REVIEW OF SYSTEMS: Constitutional: No documented fever, no chills, no night sweats. No weight change. No weakness, fatigue or lethargy. No daytime sleepiness. HEENT: No headache. No blurred vision or double vision, no loss of vision. No loss of Hearing, no ringing in the ears, no dizziness. No nasal drainage or congestion. No epistaxis. No sore throat. Lungs: Positive for shortness of breath, no cough, no sputum production. No wheezing. Reports dyspnea with activity. Cardiovascular: No chest pain, positive for lower extremity edema. Positive for palpitations. Positive for paroxysmal nocturnal dyspnea. Positive for orthopnea. No lightheadedness or dizziness. No syncopal episodes. Abdominal: Reports abdominal pain. No nausea, vomiting. No diarrhea. No constipation. No bloody or tarry stools reports loss of appetite. Genitourinary: No dysuria, increased frequency, urgency. No urinary retention. Musculoskeletal: No myalgias. No muscle weakness, positive for gait dysfunction, no frequent falls. positive for back pain. No neck pain. Integumentary: No wounds, no lesions. No rash or pruritus. No unusual bruising. No change in hair or nails. Neurologic: No aphasia. No facial droop. No change in mentation. No head injury. No headache. No paralysis. positive for facial paresthesia. Psychiatric: positive for depression, positive for anxiety. No mood swings. Endocrine: abnormal blood sugars. positive for weight change. PAST MEDICAL HISTORY: Hypertension and hypertensive cardiovascular disease. Mixed hyperlipidemia GERD Diabetes Mellitus type 2. Diabetic polyneuropathy. Obesity with YESIKA. Vitamin D deficiency. Asthma. Chronic diastolic heart failure. TIA. PAST SURGICAL HISTORY: Tonsillectomy. Hysterectomy. Tubal ligation Cholecystectomy. Right catarct surgery Right knee surgery Colonoscopy 2008 EGD 2015 SOCIAL HISTORY: Patient is a life long non smoker, she denies any alcohol ingestion, no drug use or abuse, she is a and she lives alone, just lost her recently to ruptured Aortic Aneurysm FAMILY HISTORY: Father at the age of 86 from prostate cancer, Mother at the age of 74 from lung cancer, one brother at the age of 21 from CO poisoning, one daughter with hypertension PHYSICAL EXAMINATION: General: 78 year old female sitting up at the edge of the bed appears to be sh ort of breath. HEENT: Head is atraumatic, normocephalic, pupils were equal round reactive to light and recommendation, extraocular muscle movement were intact, sclera nonicteric, conjunctivae were pale, mucous membranes of the mouth are somewhat dry. Neck: Supple, no JVP, normal carotid upstroke bilaterally, no lymphadenopathy. Chest: Decreased breath sounds at the bases, few rhonchi, no expiratory wheezes, no chest wall tenderness, no intercostal retractions. Heart: First heart sound is normal, second heart sound is normal there is BIANCA 2/6 located at the left sternal border. Abdomen: Soft, obese nontender, nondistended, positive bowel sounds. Extremities: There is +2 edema no calf tenderness DP +2 bilaterally. Neurologic examination: Patient is awake alert and oriented X3, cranial nerves II-12 appear grossly intact, muscle power were 5 out of 5 in upper extremities and 5 out of 5 in bilateral lower extremities, deep tendon reflexes normal bilaterally. ASSESSMENT AND PLAN: 1. Atrial fibrillation with rapid ventricular response currently in sinus tachycardia with PACs, patient seems to be going in and out of atrial fibrillation, continue patient on atenolol 50 mg orally twice every day, patient will be started on Eliquis 5 mg orally twice every day, cardiology consultation appreciated, echocardiogram will be obtained to evaluate LV function, we will follow-up with the patient very closely. 2. Hypervolemic hyponatremia. we will continue with Lasix 40 mg IV push every 12 hours we will check serum osmolality, urine osmolality and urine sodium. 3. Hypertension and hypertensive cardiovascular disease. we will continue with Atenolol 50 mg po bid, Clonidine 0.2 mg 1 tabs po at bedtime, Losartan 100 mg po daily, Amlodipine 5 mg orally daily and we will continue with BP monitoring. 4. Mixed hyperlipidemia. we will continue with low cholesterol diet and exercise and weight loss, patient is not taking any statin at this time., keep LDL-c 55- 70 5. Diabetes Mellitus type 2. we will continue with Levemir 12 units at bedtime along with SSI and we will continue with Metformin 500 mg po daily and Pioglitasone 30 mg po daily, BGM before each meal and at bedtime. 6. Obesity and obstructive sleep apnea and OHS. not able to tolerate CPAP. 7. Vitamin D deficiency. we will continue with vitamin d supplements. 8. Asthma. stable. 9. GERD with PUD. we will continue with Protonix 40 mg po daily. 10. Anxiety.we will continue with Xanax as needed. 11. DVT Prophylaxis patient will be started on Eliquis 5 mg orally twice every day. 12. GI Prophylaxis . we will continue with Pantoprazole 40 mg po daily. 13.Admit to inpatient, estimated length of stay 2 midnights. 14. Full code. Past Medical History Past Medical History: Asthma, Diabetes Mellitus, GERD/Reflux, Hyperlipidemia, Hypertension Additional Past Medical History / Comment(s): Zenker's diverticulum, hemrroids History of Any Multi-Drug Resistant Organisms: None Reported Past Surgical History: Cholecystectomy, Hysterectomy, Orthopedic Surgery, Tonsillectomy, Tubal Ligation Additional Past Surgical History / Comment(s): right knee. right cataract. Past Anesthesia/Blood Transfusion Reactions: No Reported Reaction Smoking Status: Never smoker - Past Family History Mother Family Medical History: Cancer Additional Family Medical History / Comment(s): . Father Family Medical History: Cancer Additional Family Medical History / Comment(s): prostate Medications and Allergies Home Medications Medication Instructions Recorded Confirmed Type Pioglitazone [Actos] 15 mg PO DAILY@1100 03/11/16 12/11/23 History atenoloL [Tenormin] 50 mg PO BID@1100,2100 03/11/16 12/11/23 History metFORMIN HCL [Glucophage] 1,000 mg PO BID@1500,209903/11/16 12/11/23 History Insulin Glargine,Hum.rec.anlog 7 - 12 units SQ HS 10/24/16 12/11/23 History [Lantus Solostar Pen] Furosemide [Lasix] 40 mg PO DAILY #30 tablet 07/25/22 12/11/23 Rx ALPRAZolam [Xanax] 0.125 mg PO BID@1100,2100 08/05/22 12/11/23 History Acetaminophen Tab [Tylenol Tab] 500 mg PO DAILY@1500 12/11/23 12/11/23 History Losartan Potassium 100 mg PO DAILY@1100 12/11/23 12/11/23 History Magnesium Oxide [Mag-Ox] 400 mg PO DAILY@1500 12/11/23 12/11/23 History amLODIPine [Norvasc] 5 mg PO DAILY@1100 12/11/23 12/11/23 History cloNIDine HCL [Catapres] 0.2 mg PO HS 12/11/23 12/11/23 History Allergies Allergy/AdvReac Type Severity Reaction Status Date / Time cephalexin Allergy Unknown Verified 12/11/23 12:37 ciprofloxacin [From Cipro] Allergy Anaphylaxis Verified 12/11/23 12:37 codeine Allergy Chest Pain Verified 12/11/23 12:37 diclofenac Allergy Anaphylaxis Verified 12/11/23 12:37 difluprednate [From Durezol] Allergy Anaphylaxis Verified 12/11/23 12:37 dog dander Allergy Unknown Verified 12/11/23 12:37 doxycycline [From Vibramycin] Allergy Unknown Verified 12/11/23 12:37 epinephrine Allergy Unknown Verified 12/11/23 12:37 erythromycin base Allergy Unknown Verified 12/11/23 12:37 Fish Containing Products Allergy Anaphylaxis Verified 12/11/23 12:37 latex Allergy Anaphylaxis Verified 12/11/23 12:37 metronidazole [From Flagyl] Allergy Anaphylaxis Verified 12/11/23 12:37 mold Allergy Unknown Verified 12/11/23 12:37 nepafenac Allergy Anaphylaxis Verified 12/11/23 12:37 ofloxacin [From Floxin] Allergy Anaphylaxis Verified 12/11/23 12:37 Penicillins Allergy Unknown Verified 12/11/23 12:37 Childhood shellfish derived [Shellfish] Allergy Anaphylaxis Verified 12/11/23 12:37 strawberry Allergy Burning & Verified 12/11/23 12:37 swelling Thiazides Allergy Unknown Verified 12/11/23 12:37 tomato AdvReac Mild Unknown Verified 12/11/23 12:37 Childhood bandages Allergy Unknown Uncoded 12/11/23 12:37 dust Allergy Unknown Uncoded 12/11/23 12:37 seafood Allergy Anaphylaxis Uncoded 12/11/23 12:37 Physical Exam Vitals: Vital Signs Temp Pulse Pulse Resp BP BP Pulse Ox 12/11/23 16:03 97.6 F 112 H 17 136/68 96 12/11/23 14:59 98 20 156/96 96 12/11/23 10:50 91 16 118/84 97 12/11/23 09:00 16 139/74 12/11/23 08:03 76 16 118/101 97 12/11/23 06:03 97.7 F 77 20 158/84 97 12/11/23 05:22 60 18 143/88 97 12/11/23 02:37 97.8 F 61 18 117/76 97 Intake and Output 12/11/23 12/11/23 12/11/23 06:59 14:59 22:59 Other: Weight 108.862 kg 108.862 kg Results CBC & Chem 7: 12/12/23 07:45 12/12/23 07:45 Labs: Abnormal Lab Results - Last 24 Hours (Table) 12/11/23 12/11/23 12/11/23 Range/Units 02:56 02:56 10:32 WBC 14.9 H (3.8-10.6) k/uL Plt Count 531 H (150-450) k/uL Neutrophils # 10.8 H (1.3-7.7) k/uL Sodium 122 L (137-145) mmol/L Chloride 89 L (98-107) mmol/L BUN 24 H (7-17) mg/dL Glucose 223 H (74-99) mg/dL POC Glucose (mg/dL) 277 H (70-110) mg/dL Magnesium 1.3 L (1.6-2.3) mg/dL AST 57 H (14-36) U/L ALT 36 H (4-34) U/L Alkaline Phosphatase 231 H (38-126) U/L 12/11/23 12/11/23 Range/Units 16:44 16:49 WBC (3.8-10.6) k/uL Plt Count (150-450) k/uL Neutrophils # (1.3-7.7) k/uL Sodium 126 L (137-145) mmol/L Chloride 88 L (98-107) mmol/L BUN 25 H (7-17) mg/dL Glucose 319 H (74-99) mg/dL POC Glucose (mg/dL) 319 H (70-110) mg/dL Magnesium (1.6-2.3) mg/dL AST (14-36) U/L ALT (4-34) U/L Alkaline Phosphatase (38-126) U/L Thrombosis Risk Factor Assmnt - Choose All That Apply Each Factor Represents 1 point: Obesity (BMI >25) Each Risk Factor Represents 3 Points: Age 75 years or older Thrombosis Risk Factor Assessment Total Risk Factor Score: 4 Thrombosis Risk Factor Assessment Level: Moderate Risk
--- NOTE | 2023-12-12 14:56 | P.PN ---
Subjective Progress Note Date: 12/12/23 HISTORY OF PRESENT ILLNESS: This is a 78 year old female with a previous medical history signif icant for hypertension and hypertensive cardiovascular disease, hyperlipidemia, diabetes mellitus type 2, and diabetic polyneuropathy, GERD with duodenal ulcer, and obesity with obstructive sleep apnea, and obesity hypoventilation syndrome, chronic diastolic heart filure, patient was last hospitalized at [facility] about a year ago with accelerated hypertension and hypervolemic hyponatremia and was sen by cardiology and nephrology , patient has been complaining of increased swelling both lower extremities associated with increased shortness of breath, she was having some palpitation in her chest, she ended up coming to the emergency department at [facility], initial EKG did show evidence of atrial fibrillation with rapid ventricular response, the subsequent EKG did show evidence of sinus tachycardia with PACs, nevertheless patient never started on anticoagulation at that time, patient was started back on atenolol 50 mg orally twice every day as well as her losartan 100 mg once every day along with the clonidine, and she was found to have hypervolemic hyponatremia, her sodium was 122, she was started on Lasix 60 mg IV push x 1 followed by 40 mg IV push every 12 hours, patient has been seen in consultation by cardiology as well as nephrology and she was admitted to the hospital for acute diastolic heart failure due to atrial fibrillation with rapid ventricular response as well as hypervolemic hyponatremia. 12/11: Patient is sitting up in a recliner chair, her daughter was at the bedside, she was seen earlier by cardiology, she was started on Eliquis 5 mg orally twice every day due to atrial fibrillation with RVR, patient also converted back to sinus rhythm, continue atenolol 50 mg twice every day continue Eliquis 5 mg orally twice every day, continue other treatment plan, echocardiogram was done, we will follow-up with the patient for another 24 hours, her repeated sodium was 120 5 in the morning, repeat sodium in the afternoon still pending, patient has been followed by nephrology as well, will continue current treatment plan, patient will require physical therapy evaluation hopefully in the next 24 hours. REVIEW OF SYSTEMS: Constitutional: No documented fever, no chills, no night sweats. No weight change. No weakness, fatigue or lethargy. No daytime sleepiness. HEENT: No headache. No blurred vision or double vision, no loss of vision. No loss of Hearing, no ringing in the ears, no dizziness. No nasal drainage or congestion. No epistaxis. No sore throat. Lungs: Positive for shortness of breath, no cough, no sputum production. No wheezing. Reports dyspnea with activity. Cardiovascular: No chest pain, positive for lower extremity edema. Positive for palpitations. Positive for paroxysmal nocturnal dyspnea. Positive for ort hopnea. No lightheadedness or dizziness. No syncopal episodes. Abdominal: Reports abdominal pain. No nausea, vomiting. No diarrhea. No constipation. No bloody or tarry stools reports loss of appetite. Genitourinary: No dysuria, increased frequency, urgency. No urinary retention. Musculoskeletal: No myalgias. No muscle weakness, positive for gait dysfunction, no frequent falls. positive for back pain. No neck pain. Integumentary: No wounds, no lesions. No rash or pruritus. No unusual bruising. No change in hair or nails. Neurologic: No aphasia. No facial droop. No change in mentation. No head injury. No headache. No paralysis. positive for facial paresthesia. Psychiatric: positive for depression, positive for anxiety. No mood swings. Endocrine: abnormal blood sugars. positive for weight change. PHYSICAL EXAMINATION: General: 78 year old female sitting up at the edge of the bed appears to be short of breath. HEENT: Head is atraumatic, normocephalic, pupils were equal round reactive to light and recommendation, extraocular muscle movement were intact, sclera nonicteric, conjunctivae were pale, mucous membranes of the mouth are somewhat dry. Neck: Supple, no JVP, normal carotid upstroke bilaterally, no lymphadenopathy. Chest: Decreased breath sounds at the bases, few rhonchi, no expiratory wheezes, no chest wall tenderness, no intercostal retractions. Heart: First heart sound is normal, second heart sound is normal there is BIANCA 2/6 located at the left sternal border. Abdomen: Soft, obese nontender, nondistended, positive bowel sounds. Extremities: There is +2 edema no calf tenderness DP +2 bilaterally. Neurologic examination: Patient is awake alert and oriented X3, cranial nerves II-12 appear grossly intact, muscle power were 5 out of 5 in upper extremities and 5 out of 5 in bilateral lower extremities, deep tendon reflexes normal bilaterally. ASSESSMENT AND PLAN: 1. Atrial fibrillation with rapid ventricular response currently in sinus tachycardia with PACs, patient seems to be going in and out of atrial fibrillation, continue patient on atenolol 50 mg orally twice every day, patient will be started on Eliquis 5 mg orally twice every day, cardiology consultation appreciated, echocardiogram will be obtained to evaluate LV function, we will follow-up with the patient very closely. 2. Hypervolemic hyponatremia. we will continue with Lasix 40 mg IV push every 24 hours, we will monitor labs 3. Hypertension and hypertensive cardiovascular disease. we will continue with Atenolol 50 mg po bid, Clonidine 0.2 mg 1 tabs po at bedtime, Losartan 100 mg po daily, Amlodipine 5 mg orally daily and we will continue with BP monitoring. 4. Mixed hyperlipidemia. we will continue with low cholesterol diet and exercise and weight loss, patient is not taking any statin at this time., keep LDL-c 55- 70 5. Diabetes Mellitus type 2. we will continue with Levemir 12 units at bedtime along with SSI and we will continue with Metformin 500 mg po daily and Pioglitasone 30 mg po daily, BGM before each meal and at bedtime. 6. Obesity and obstructive sleep apnea and OHS. not able to tolerate CPAP. 7. Vitamin D deficiency. we will continue with vitamin d supplements. 8. Asthma. stable. 9. GERD with PUD. we will continue with Protonix 40 mg po daily. 10. Anxiety.we will continue with Xanax as needed. 11. DVT Prophylaxis patient will be started on Eliquis 5 mg orally twice every day. 12. GI Prophylaxis . we will continue with Pantoprazole 40 mg po daily. 13. Physical therapy evaluation. Objective - Vital Signs Vital signs: Vital Signs Temp 97.5 F L 12/12/23 11:41 Pulse 61 12/12/23 12:02 Resp 18 12/12/23 11:41 BP 116/67 12/12/23 12:02 Pulse Ox 97 12/12/23 11:41 FiO2 Intake & Output 12/11/23 12/12/23 12/12/23 18:59 06:59 18:59 Intake Total 410 Output Total 950 200 Balance -950 210 Weight 108.862 kg Intake: IV 10 Invasive Line 1 10 Oral 400 Output: Urine 950 200 Other: Voiding Method Toilet Toilet # Voids 1 1 - Labs CBC & Chem 7: 12/12/23 07:45 12/12/23 07:45 Labs: Abnormal Lab Results - Last 24 Hours (Table) 12/11/23 12/11/23 12/11/23 Range/Units 11:48 16:44 16:49 WBC (3.8-10.6) k/uL Plt Count (150-450) k/uL Neutrophils # (1.3-7.7) k/uL Sodium 126 L (137-145) mmol/L Chloride 88 L (98-107) mmol/L BUN 25 H (7-17) mg/dL Creatinine (0.52-1.04) mg/dL Glucose 319 H (74-99) mg/dL POC Glucose (mg/dL) 319 H (70-110) mg/dL Hemoglobin A1c (<=6.0) % TSH (0.465-4.680) mIU/L Urine Osmolality 251 L (400-1100) mOsm/kg 12/11/23 12/11/23 12/12/23 Range/Units 20:00 23:21 00:03 WBC (3.8-10.6) k/uL Plt Count (150-450) k/uL Neutrophils # (1.3-7.7) k/uL Sodium (137-145) mmol/L Chloride (98-107) mmol/L BUN (7-17) mg/dL Creatinine (0.52-1.04) mg/dL Glucose (74-99) mg/dL POC Glucose (mg/dL) 433 H 271 H 294 H (70-110) mg/dL Hemoglobin A1c (<=6.0) % TSH (0.465-4.680) mIU/L Urine Osmolality (400-1100) mOsm/kg 12/12/23 12/12/23 12/12/23 Range/Units 01:28 06:01 07:45 WBC (3.8-10.6) k/uL Plt Count (150-450) k/uL Neutrophils # (1.3-7.7) k/uL Sodium (137-145) mmol/L Chloride (98-107) mmol/L BUN (7-17) mg/dL Creatinine (0.52-1.04) mg/dL Glucose (74-99) mg/dL POC Glucose (mg/dL) 220 H 208 H (70-110) mg/dL Hemoglobin A1c 9.7 H (<=6.0) % TSH (0.465-4.680) mIU/L Urine Osmolality (400-1100) mOsm/kg 12/12/23 12/12/23 12/12/23 Range/Units 07:45 07:45 11:07 WBC 17.0 H (3.8-10.6) k/uL Plt Count 472 H (150-450) k/uL Neutrophils # 11.5 H (1.3-7.7) k/uL Sodium 125 L (137-145) mmol/L Chloride 89 L (98-107) mmol/L BUN 33 H (7-17) mg/dL Creatinine 1.33 H (0.52-1.04) mg/dL Glucose 238 H (74-99) mg/dL POC Glucose (mg/dL) 216 H (70-110) mg/dL Hemoglobin A1c (<=6.0) % TSH 5.540 H (0.465-4.680) mIU/L Urine Osmolality (400-1100) mOsm/kg
[2023-12-12] MEDS: ACETAMINOPHEN TAB 500 MG TAB PO SCH (15:00)
[2023-12-12] MEDS: MAGNESIUM OXIDE 400 MG TAB PO SCH (15:01)
[2023-12-12 16:15] LABS: Glucose,Whole Blood 251 mg/dL (70-110)
[2023-12-12] MEDS: TOLVAPTAN 15 MG TABLET PO ONE (16:23)
--- NOTE | 2023-12-12 17:30 | CA ---
Transthoracic Echo Report Name: Lorrie Betts Age: 78 Gender: F : 1945 Exam Date: 12/12/2023 13:01 Exam Location: [facility] Ht (in): 66 Wt (lb): 240 Ordering Physician: Eden Garza Attending/Referring Phys: [id number], Greg Management Department Chair Laisha James RDCS Procedure CPT: Indications: LVF Cardiac Hx: Technical Quality: Technically difficult study Contrast 1: Total Dose (mL): Contrast 2: Total Dose (mL): MEASUREMENTS (Male / Female) Normal Values 2D ECHO LV Diastolic Diameter PLAX 4.0 cm 4.2 - 5.9 / 3.9 - 5.3 cm LV Systolic Diameter PLAX 2.8 cm IVS Diastolic Thickness 1.0 cm 0.6 - 1.0 / 0.6 - 0.9 cm LVPW Diastolic Thickness 1.3 cm 0.6 - 1.0 / 0.6 - 0.9 cm LV Relative Wall Thickness 0.6 LVOT Diameter 1.9 cm Ascending Aorta Diameter 3.4 cm M-MODE LV Diastolic Diameter MM 4.8 cm 4.2 - 5.9 / 3.9 - 5.3 cm LV Systolic Diameter MM 3.4 cm LV Cardiac Index MM Teich 1602.3 cm???/min???m??? IVS Diastolic Thickness MM 1.1 cm 0.6 - 1.0 / 0.6 - 0.9 cm LVPW Diastolic Thickness MM 1.1 cm 0.6 - 1.0 / 0.6 - 0.9 cm LV Relative Wall Thickness MM 0.5 0.24 - 0.42 / 0.22 - 0.42 LV Mass Index MM 90.8 g/m??? 49 - 115 / 43 - 95 g/m??? DOPPLER AV Peak Velocity 54.7 cm/s AV Peak Gradient 1.2 mmHg AV Mean Velocity 68.5 cm/s AV Mean Gradient 2.0 mmHg AV Velocity Time Integral 22.8 cm LVOT Peak Velocity 113.4 cm/s LVOT Peak Gradient 5.1 mmHg LVOT Velocity Time Integral 28.3 cm LVOT Stroke Volume 79.8 cm??? LVOT Stroke Volume Index 36.9 ml/m??? LVOT Cardiac Index 2149.2 cm???/min???m??? AV Area Cont Eq vti 3.5 cm??? AV Area Cont Eq pk 5.9 cm??? MV Area PHT 2.7 cm??? Mitral E Point Velocity 73.2 cm/s Mitral A Point Velocity 74.0 cm/s Mitral E to A Ratio 1.0 MV Deceleration Time 280.9 ms TR Peak Velocity 263.8 cm/s TR Peak Gradient 27.8 mmHg Right Atrial Pressure 5.0 mmHg Pulmonary Artery Systolic Pressu 32.8 mmHg Right Ventricular Systolic Press 32.8 mmHg PV Peak Velocity 95.6 cm/s PV Peak Gradient 3.7 mmHg FINDINGS Left Ventricle Left ventricular ejection fraction is estimated at 55-60 %. Moderately increased left ventricular mass. Mildly increased septal wall thickness. Mildly increased posterior wall thickness. Moderately decreased midwall fractional shortening. Mildly increased left ventricular relative wall thickness. No obvious regional wall motion abnormalities. Right Ventricle Normal right ventricular size. Right ventricular systolic pressure within normal limits. Right Atrium Right atrium not well visualized. Left Atrium Left atrium not well visualized. Mitral Valve Structurally normal mitral valve. No mitral stenosis, regurgitation or prolapse. Aortic Valve Trileaflet aortic valve. No aortic valve stenosis or regurgitation. Tricuspid Valve Structurally normal tricuspid valve. No tricuspid stenosis. Trace tricuspid regurgitation. Pulmonic Valve Pulmonic valve not well visualized. Pericardium No pericardial effusion. Aorta Aortic root and proximal ascending aorta not well visualized. CONCLUSIONS Left ventricular ejection fraction 55-60% Mildly increased left ventricular wall thickness RVSP 32 No mitral regurgitation Trace tricuspid regurgitation Previewed by: Dr. Buster Grossman DO (Electronically Signed) Final Date: 12 December 2023 17:29
[2023-12-12 20:29] LABS: Glucose,Whole Blood 208 mg/dL (70-110)
[2023-12-12 22:39] LABS: Glucose,Whole Blood 255 mg/dL (70-110)
[2023-12-13 01:53] LABS: Glucose,Whole Blood 196 mg/dL (70-110)
[2023-12-13 06:20] LABS: Glucose,Whole Blood 174 mg/dL (70-110)
[2023-12-13] MEDS: FUROSEMIDE 10 MG/ML 4 ML VIAL IV SCH ×2 (09:39→17:14)
[2023-12-13 10:07] LABS: Basophils # (A) 0.1 k/uL (0-0.2); Basophils % (A) 1 %; Eosinophils # (A) 0.4 k/uL (0-0.7); Eosinophils % (A) 3 %; HCT 33.1 % (34.0-46.0); Lymphocytes # (A) 2.8 k/uL (1.0-4.8); Lymphocytes % (A) 19 %; MCH 30.1 pg (25.0-35.0); MCHC 33.2 g/dL (31.0-37.0); MCV 90.6 fL (80.0-100.0); Mean Platelet Volume 8.4; Monocytes % (A) 7 %; Neutrophils % (A) 69 %; Platelet Count 432 k/uL (150-450); RBC 3.66 m/uL (3.80-5.40); RDW 14.3 % (11.5-15.5); WBC 14.5 k/uL (3.8-10.6)
[2023-12-13 10:10] LABS: ALT 38 U/L (4-34); AST 64 U/L (14-36); African American GFR (CKD) 47 (>60 ml/min/1.73 sqM); Albumin 3.5 g/dL (3.5-5.0); Alkaline Phosphatase 206 U/L (38-126); Anion Gap 7 mmol/L; Blood Urea Nitrogen 45 mg/dL (7-17); Calcium 9.5 mg/dL (8.4-10.2); Carbon Dioxide 28 mmol/L (22-30); Chloride 89 mmol/L (98-107); Glucose 241 mg/dL (74-99); Magnesium 1.7 mg/dL (1.6-2.3); Non-African American GFR(CKD) 40 (>60 ml/min/1.73 sqM); Potassium 5.2 mmol/L (3.5-5.1); Sodium 124 mmol/L (137-145); Total Bilirubin 0.7 mg/dL (0.2-1.3); Total Protein 6.8 g/dL (6.3-8.2)
--- NOTE | 2023-12-13 10:44 | P.PN ---
Subjective Progress Note Date: 12/13/23 History of present illness: This is a 78-year-old female with past medical history of hypertension, hyperlipidemia, diabetes mellitus type 2, obesity, obstructive sleep apnea, chr onic diastolic heart failure, hypomagnesemia, hyponatremia. Patient presented to [facility] urgency center due to heart beating irregularly. That had been going on intermittently for couple of days and seems to be more persistent. Patient was found to have hyponatremia and admitted to the hospital and nephrology is following. Blood pressure 109/57, heart rate in the 50s, afebrile, pulse ox 97% on room air. Patient went into A-fib with RVR last evening up to the 140s. She was started on her home cardiac medications. Patient has converted to sinus rhythm. Patient does not have any previous CAD history and does not follow with a speech communication instructor. Discussed anticoagulation with the patient and she is concerned because she states she has significant bleeding from her hemorrhoids including clots at times. Patient agreed to start Eliquis. EKG: Atrial fibrillation at 130 bpm, telemetry sinus rhythm Laboratory studies: WBC 14.9, hemoglobin 1.7, platelet count 531. Initial sodium 122, repeat 126, BUN 25, creatinine 0.92, potassium 5. Troponin negative x 1. AST 57, ALT 36, alkaline phosphatase 231. Home cardiac medications: Amlodipine 5 mg daily, atenolol 50 mg twice daily, clonidine 0.2 mg at bedtime, Lasix 40 mg daily, losartan 100 mg daily at 11:00, magnesium oxide 400 mg daily at 1500. Echocardiogram performed in July 2023 revealed EF of 55%, LV enlargement with mild hypertrophy. Moderate pulmonary hypertension. 12/12 Yesterday, patient was maintaining sinus rhythm, continued on a atenolol and was started on Eliquis. Patient remains in a sinus rhythm. Sodium from yesterday afternoon was 124. Echocardiogram reveals EF of 55 to 60%. RVSP 32, no mitral regurgitation, trace tricuspid regurgitation. This morning, nephrology has decreased IV Lasix to once daily. Physical examination: Gen: This is a 78-year-old female in no acute distress VS: reviewed HEENT: Head is atraumatic, normocephalic. Pupils equal, round. Sclerae is anicteric. NECK: Supple. No JVD. LUNGS: Clear to auscultation. No wheezes or rhonchi. No intercostal retractions. HEART: Regular rate and rhythm. No murmur. ABDOMEN: Soft No tenderness. EXTREMITIES: 1+ pedal edema. No calf tenderness. NEUROLOGICAL: Patient is awake, alert and oriented x3. Assessment: Hypervolemic hyponatremia Hypomagnesemia New onset paroxysmal atrial fibrillation with RVR, currently in a sinus rhythm Hypertension Chronic diastolic heart failure Diabetes mellitus type 2 Morbid obesity Plan: Continue patient's home cardiac medications Continue IV Lasix 40 mg daily per nephrology Monitor ARMANDO, daily weights, electrolytes and renal function No evidence of acute heart failure on exam Cardiology will sign off this case and follow on an as-needed basis. Please reconsult for any new concerns. Patient may follow-up in the office with Dr. Bishop in one to 2 weeks. Nurse practitioner note has been reviewed, I agree with documented findings and plan of care. Patient was seen and examined. Objective - Vital Signs Vital signs: Vital Signs Temp 97.7 F 12/13/23 04:00 Pulse 53 L 12/13/23 04:00 Resp 16 12/13/23 04:00 BP 124/75 12/13/23 04:00 Pulse Ox 98 12/13/23 04:00 FiO2 Intake & Output 12/12/23 12/13/23 12/13/23 18:59 06:59 18:59 Intake Total 730 250 Output Total 800 625 Balance -70 -375 Weight 117.4 kg Intake: IV 10 10 Invasive Line 1 10 10 Oral 720 240 Output: Urine 800 625 Other: Voiding Method Toilet Toilet # Voids 1 1 - Labs CBC & Chem 7: 12/13/23 09:20 12/13/23 09:20 Labs: Abnormal Lab Results - Last 24 Hours (Table) 12/12/23 12/12/23 12/12/23 Range/Units 07:45 07:45 11:07 Sodium 125 L (137-145) mmol/L Chloride 89 L (98-107) mmol/L BUN 33 H (7-17) mg/dL Creatinine 1.33 H (0.52-1.04) mg/dL Glucose 238 H (74-99) mg/dL POC Glucose (mg/dL) 216 H (70-110) mg/dL Hemoglobin A1c 9.7 H (<=6.0) % TSH 5.540 H (0.465-4.680) mIU/L 12/12/23 12/12/23 12/12/23 Range/Units 15:17 16:13 20:28 Sodium 124 L (137-145) mmol/L Chloride (98-107) mmol/L BUN (7-17) mg/dL Creatinine (0.52-1.04) mg/dL Glucose (74-99) mg/dL POC Glucose (mg/dL) 251 H 208 H (70-110) mg/dL Hemoglobin A1c (<=6.0) % TSH (0.465-4.680) mIU/L 12/12/23 12/13/23 12/13/23 Range/Units 22:37 01:52 06:19 Sodium (137-145) mmol/L Chloride (98-107) mmol/L BUN (7-17) mg/dL Creatinine (0.52-1.04) mg/dL Glucose (74-99) mg/dL POC Glucose (mg/dL) 255 H 196 H 174 H (70-110) mg/dL Hemoglobin A1c (<=6.0) % TSH (0.465-4.680) mIU/L
[2023-12-13] MEDS: TOLVAPTAN 15 MG TABLET PO ONE (11:15)
[2023-12-13 11:37] LABS: Glucose,Whole Blood 190 mg/dL (70-110)
--- NOTE | 2023-12-13 12:10 | P.PN ---
Subjective Patient is seen for follow-up for hyponatremia, hypervolemic. Maintained on IV Lasix. Serum sodium did not improve with diuresis and patient received 7.5 mg of Samsca last night. Serum sodium remains at 124 this morning. Patient is maintained on fluid restriction. Leg swelling has improved per patient. Systolic blood pressure noted at 135 to 114 mmHg. Objective - Vital Signs Vital signs: Vital Signs Temp 97.6 F 12/13/23 11:17 Pulse 53 L 12/13/23 11:17 Resp 16 12/13/23 11:17 BP 114/71 12/13/23 11:17 Pulse Ox 97 12/13/23 11:17 FiO2 Intake & Output 12/12/23 12/13/23 12/13/23 18:59 06:59 18:59 Intake Total 730 250 250 Output Total 800 625 200 Balance -70 -375 50 Weight 117.4 kg Intake: IV 10 10 10 Invasive Line 1 10 10 10 Oral 720 240 240 Output: Urine 800 625 200 Other: Voiding Method Toilet Toilet Toilet # Voids 1 1 # Bowel Movements 1 - Exam On examination patient is comfortable awake alert oriented x 3. Examination of the heart S1 and S2 Examination of the lungs bilateral breath sounds are heard. Abdomen is soft, non tender Examination of the lower extremities shows edema 2-3+ bilaterally, improved per patient. PROGRESS MAN exam grossly intact - Labs CBC & Chem 7: 12/13/23 09:20 12/13/23 09:20 Labs: Abnormal Lab Results - Last 24 Hours (Table) 12/12/23 12/12/23 12/12/23 Range/Units 15:17 16:13 20:28 WBC (3.8-10.6) k/uL RBC (3.80-5.40) m/uL Hgb (11.4-16.0) gm/dL Hct (34.0-46.0) % Neutrophils # (1.3-7.7) k/uL Sodium 124 L (137-145) mmol/L Potassium (3.5-5.1) mmol/L Chloride (98-107) mmol/L BUN (7-17) mg/dL Creatinine (0.52-1.04) mg/dL Glucose (74-99) mg/dL POC Glucose (mg/dL) 251 H 208 H (70-110) mg/dL AST (14-36) U/L ALT (4-34) U/L Alkaline Phosphatase (38-126) U/L 12/12/23 12/13/23 12/13/23 Range/Units 22:37 01:52 06:19 WBC (3.8-10.6) k/uL RBC (3.80-5.40) m/uL Hgb (11.4-16.0) gm/dL Hct (34.0-46.0) % Neutrophils # (1.3-7.7) k/uL Sodium (137-145) mmol/L Potassium (3.5-5.1) mmol/L Chloride (98-107) mmol/L BUN (7-17) mg/dL Creatinine (0.52-1.04) mg/dL Glucose (74-99) mg/dL POC Glucose (mg/dL) 255 H 196 H 174 H (70-110) mg/dL AST (14-36) U/L ALT (4-34) U/L Alkaline Phosphatase (38-126) U/L 12/13/23 12/13/23 12/13/23 Range/Units 09:20 09:20 11:35 WBC 14.5 H (3.8-10.6) k/uL RBC 3.66 L (3.80-5.40) m/uL Hgb 11.0 L (11.4-16.0) gm/dL Hct 33.1 L (34.0-46.0) % Neutrophils # 10.0 H (1.3-7.7) k/uL Sodium 124 L (137-145) mmol/L Potassium 5.2 H (3.5-5.1) mmol/L Chloride 89 L (98-107) mmol/L BUN 45 H (7-17) mg/dL Creatinine 1.27 H (0.52-1.04) mg/dL Glucose 241 H (74-99) mg/dL POC Glucose (mg/dL) 190 H (70-110) mg/dL AST 64 H (14-36) U/L ALT 38 H (4-34) U/L Alkaline Phosphatase 206 H (38-126) U/L Assessment and Plan Assessment: 1. Hyponatremia, hypervolemic. Urine sodium 74 and urine osmolality 251. TSH slightly high at 5.5. 2. Hypomagnesemia from diuretic use. Replaced. Better. 3. Benign hypertension. Controlled. 4. Volume overload. Improving with diuresis. 5. Acute on chronic diastolic CHF and moderate tricuspid regurgitation and pulmonary hypertension. 6. Diabetes mellitus. 7. Morbid obesity. 8. Acute kidney injury secondary to vasomotor nephropathy from diuresis in the setting of use of angiotensin receptor blockers. Creatinine 1.27 today. No evidence of urinary retention. Plan: Decrease losartan to 50 mg daily Repeat Samsca Repeat sodium this afternoon Continue with fluid restriction Continue with IV Lasix.
[2023-12-13 16:45] LABS: Glucose,Whole Blood 207 mg/dL (70-110)
--- NOTE | 2023-12-13 17:11 | P.PN ---
Subjective Progress Note Date: 12/13/23 78 year old female with a previous medical history significant for hypertension and hypertensive cardiovascular disease, hyperlipidemia, diabetes mellitus type 2, and diabetic polyneuropathy, GERD with duodenal ulcer, and obesity with obstructive sleep apnea, and obesity hypoventilation syndrome, chronic diastolic heart filure, patient was last hospitalized at [facility] about a year ago with accelerated hypertension and hypervolemic hyponatremia and was sen by cardiology and nephrology , patient has been complaining of increased swelling both lower extremities associated with incr eased shortness of breath, she was having some palpitation in her chest, she ended up coming to the emergency department at [facility], initial EKG did show evidence of atrial fibrillation with rapid ventricular response, the subsequent EKG did show evidence of sinus tachycardia with PACs, nevertheless patient never started on anticoagulation at that time, patient was started back on atenolol 50 mg orally twice every day as well as her losartan 100 mg once every day along with the clonidine, and she was found to have hypervolemic hyponatremia, her sodium was 122, she was started on Lasix 60 mg IV push x 1 followed by 40 mg IV push every 12 hours, patient has been seen in consultation by cardiology as well as nephrology and she was admitted to the hospital for acute diastolic heart failure due to atrial fibrillation with rapid ventricular response as well as hypervolemic hyponatremia. Objective - Vital Signs Vital signs: Vital Signs Temp 97.6 F 12/13/23 09:28 Pulse 58 L 12/13/23 09:28 Resp 18 12/13/23 09:28 BP 143/77 12/13/23 09:28 Pulse Ox 96 12/13/23 09:28 FiO2 Intake & Output 12/12/23 12/13/23 12/13/23 18:59 06:59 18:59 Intake Total 730 250 250 Output Total 800 625 200 Balance -70 -375 50 Weight 117.4 kg Intake: IV 10 10 10 Invasive Line 1 10 10 10 Oral 720 240 240 Output: Urine 800 625 200 Other: Voiding Method Toilet Toilet Toilet # Voids 1 1 - Exam HEENT: Head is atraumatic, normocephalic, pupils were equal round reactive to light and recommendation, extraocular muscle movement were intact, sclera nonicteric, conjunctivae were pale, mucous membranes of the mouth are somewhat dry. Neck: Supple, no JVP, normal carotid upstroke bilaterally, no lymphadenopathy. Chest: Decreased breath sounds at the bases, few rhonchi, no expiratory wheezes, no chest wall tenderness, no intercostal retractions. Heart: First heart sound is normal, second heart sound is normal there is BIANCA 2/6 located at the left sternal border. Abdomen: Soft, obese nontender, nondistended, positive bowel sounds. Extremities: There is +2 edema no calf tenderness DP +2 bilaterally. - Labs CBC & Chem 7: 12/13/23 09:20 12/13/23 15:35 Labs: Abnormal Lab Results - Last 24 Hours (Table) 12/12/23 12/12/23 12/12/23 Range/Units 07:45 11:07 15:17 WBC (3.8-10.6) k/uL RBC (3.80-5.40) m/uL Hgb (11.4-16.0) gm/dL Hct (34.0-46.0) % Neutrophils # (1.3-7.7) k/uL Sodium 124 L (137-145) mmol/L POC Glucose (mg/dL) 216 H (70-110) mg/dL Hemoglobin A1c 9.7 H (<=6.0) % 12/12/23 12/12/23 12/12/23 Range/Units 16:13 20:28 22:37 WBC (3.8-10.6) k/uL RBC (3.80-5.40) m/uL Hgb (11.4-16.0) gm/dL Hct (34.0-46.0) % Neutrophils # (1.3-7.7) k/uL Sodium (137-145) mmol/L POC Glucose (mg/dL) 251 H 208 H 255 H (70-110) mg/dL Hemoglobin A1c (<=6.0) % 12/13/23 12/13/23 12/13/23 Range/Units 01:52 06:19 09:20 WBC 14.5 H (3.8-10.6) k/uL RBC 3.66 L (3.80-5.40) m/uL Hgb 11.0 L (11.4-16.0) gm/dL Hct 33.1 L (34.0-46.0) % Neutrophils # 10.0 H (1.3-7.7) k/uL Sodium (137-145) mmol/L POC Glucose (mg/dL) 196 H 174 H (70-110) mg/dL Hemoglobin A1c (<=6.0) % Assessment and Plan Assessment: 1. Atrial fibrillation with rapid ventricular response currently in sinus tachycardia with PACs, patient seems to be going in and out of atrial fibrillation, continue patient on atenolol 50 mg orally twice every day, patient will be started on Eliquis 5 mg orally twice every day, cardiology consultation appreciated, echocardiogram will be obtained to evaluate LV function, we will follow-up with the patient very closely. 2. Hypervolemic hyponatremia. we will continue with Lasix 40 mg IV push every 24 hours, we will monitor labs 3. Hypertension and hypertensive cardiovascular disease. we will continue with Atenolol 50 mg po bid, Clonidine 0.2 mg 1 tabs po at bedtime, Losartan 100 mg po daily, Amlodipine 5 mg orally daily and we will continue with BP monitoring. 4. Mixed hyperlipidemia. we will continue with low cholesterol diet and exercise and weight loss, patient is not taking any statin at this time., keep LDL-c 55- 70 5. Diabetes Mellitus type 2. we will continue with Levemir 12 units at bedtime along with SSI and we will continue with Metformin 500 mg po daily and Pioglitasone 30 mg po daily, BGM before each meal and at bedtime. 6. Obesity and obstructive sleep apnea and OHS. not able to tolerate CPAP. 7. Vitamin D deficiency. we will continue with vitamin d supplements. 8. Asthma. stable. 9. GERD with PUD. we will continue with Protonix 40 mg po daily. 10. Anxiety.we will continue with Xanax as needed. 11. DVT Prophylaxis patient will be started on Eliquis 5 mg orally twice every day. 12. GI Prophylaxis . we will continue with Pantoprazole 40 mg po daily. 13. Physical therapy evaluation.
[2023-12-13 20:31] LABS: Glucose,Whole Blood 217 mg/dL (70-110)
[2023-12-13 22:51] LABS: Glucose,Whole Blood 248 mg/dL (70-110)
[2023-12-14 06:20] LABS: Glucose,Whole Blood 195 mg/dL (70-110)
[2023-12-14 09:47] LABS: African American GFR (CKD) 50 (>60 ml/min/1.73 sqM); Anion Gap 8 mmol/L; Blood Urea Nitrogen 50 mg/dL (7-17); Calcium 9.7 mg/dL (8.4-10.2); Carbon Dioxide 28 mmol/L (22-30); Chloride 90 mmol/L (98-107); Glucose 279 mg/dL (74-99); Non-African American GFR(CKD) 44 (>60 ml/min/1.73 sqM); Potassium 4.8 mmol/L (3.5-5.1); Sodium 126 mmol/L (137-145)
[2023-12-14 10:07] LABS: Basophils # (A) 0.1 k/uL (0-0.2); Basophils % (A) 1 %; Eosinophils # (A) 0.4 k/uL (0-0.7); Eosinophils % (A) 3 %; HCT 37.3 % (34.0-46.0); HGB 12.1 gm/dL (11.4-16.0); Hypochromasia Slight; Lymphocytes # (A) 2.4 k/uL (1.0-4.8); Lymphocytes % (A) 18 %; MCH 29.9 pg (25.0-35.0); MCHC 32.5 g/dL (31.0-37.0); MCV 91.9 fL (80.0-100.0); Mean Platelet Volume 7.3; Monocytes # (A) 0.9 k/uL (0-1.0); Monocytes % (A) 7 %; Neutrophils # (A) 9.6 k/uL (1.3-7.7); Neutrophils % (A) 71 %; Platelet Count 456 k/uL (150-450); RBC 4.05 m/uL (3.80-5.40); RDW 13.9 % (11.5-15.5); WBC 13.6 k/uL (3.8-10.6)
--- NOTE | 2023-12-14 11:02 | P.PN ---
Subjective Patient is seen for follow-up for hyponatremia, hypervolemic. Maintained on IV Lasix. sodium improved slightly after another dose of Samsca yesterday. Patient is maintained on fluid restriction. Leg swelling has improved per patient. Objective - Vital Signs Vital signs: Vital Signs Temp 97.6 F 12/14/23 07:56 Pulse 61 12/14/23 07:56 Resp 17 12/14/23 07:56 BP 133/70 12/14/23 07:56 Pulse Ox 98 12/14/23 07:56 FiO2 Intake & Output 12/13/23 12/14/23 12/14/23 18:59 06:59 18:59 Intake Total 670 250 960 Output Total 400 800 300 Balance 270 -550 660 Weight 117 kg Intake: IV 10 10 Invasive Line 1 10 10 Oral 660 240 960 Output: Urine 400 800 300 Other: Voiding Method Toilet Toilet Toilet # Voids 1 2 # Bowel Movements 1 - Exam On examination patient is comfortable awake alert oriented x 3. Examination of the heart S1 and S2 Examination of the lungs bilateral breath sounds are heard. Abdomen is soft, non tender Examination of the lower extremities shows edema 2-3+ bilaterally, improved per patient. BALLISTICS EXPERT FORENSIC exam grossly intact - Labs CBC & Chem 7: 12/14/23 08:56 12/14/23 08:56 Labs: Abnormal Lab Results - Last 24 Hours (Table) 12/13/23 12/13/23 12/13/23 Range/Units 11:35 15:35 16:43 WBC (3.8-10.6) k/uL Plt Count (150-450) k/uL Neutrophils # (1.3-7.7) k/uL Sodium 123 L (137-145) mmol/L Chloride (98-107) mmol/L BUN (7-17) mg/dL Creatinine (0.52-1.04) mg/dL Glucose (74-99) mg/dL POC Glucose (mg/dL) 190 H 207 H (70-110) mg/dL 12/13/23 12/13/23 12/13/23 Range/Units 20:30 20:56 22:49 WBC (3.8-10.6) k/uL Plt Count (150-450) k/uL Neutrophils # (1.3-7.7) k/uL Sodium 126 L (137-145) mmol/L Chloride (98-107) mmol/L BUN (7-17) mg/dL Creatinine (0.52-1.04) mg/dL Glucose (74-99) mg/dL POC Glucose (mg/dL) 217 H 248 H (70-110) mg/dL 12/14/23 12/14/23 12/14/23 Range/Units 06:18 08:56 08:56 WBC 13.6 H (3.8-10.6) k/uL Plt Count 456 H (150-450) k/uL Neutrophils # 9.6 H (1.3-7.7) k/uL Sodium 126 L (137-145) mmol/L Chloride 90 L (98-107) mmol/L BUN 50 H (7-17) mg/dL Creatinine 1.19 H (0.52-1.04) mg/dL Glucose 279 H (74-99) mg/dL POC Glucose (mg/dL) 195 H (70-110) mg/dL Assessment and Plan Assessment: 1. Hyponatremia, hypervolemic. Urine sodium 74 and urine osmolality 251. TSH slightly high at 5.5. Maintained on IV Lasix and has been receiving Samsca. 2. Hypomagnesemia from diuretic use. Replaced. Better. 3. Benign hypertension. Controlled. 4. Volume overload. Improving with diuresis. 5. Acute on chronic diastolic CHF and moderate tricuspid regurgitation and pulmonary hypertension. 6. Diabetes mellitus. 7. Morbid obesity. 8. Acute kidney injury secondary to vasomotor nephropathy from diuresis in the setting of use of angiotensin receptor blockers. Creatinine improved to 1.1 today. No evidence of urinary retention. losartan dose was decreased yesterday. Plan: continue decreased dose of losartan Repeat Samsca Repeat sodium this afternoon Continue with fluid restriction Continue with IV Lasix, possibly increased dose.
[2023-12-14] MEDS: LEVOTHYROXINE 25 MCG TAB PO SCH (11:07)
[2023-12-14] MEDS: TOLVAPTAN 30 MG TABLET PO ONE (11:08)
[2023-12-14] MEDS: LOSARTAN 50 MG TAB PO SCH (11:08)
[2023-12-14 11:10] LABS: Glucose,Whole Blood 301 mg/dL (70-110)
[2023-12-14 13:50] VITALS: BMI 41.6
--- NOTE | 2023-12-14 15:21 | P.PN ---
Subjective Progress Note Date: 12/14/23 78 year old female with a previous medical history significant for hypertension and hypertensive cardiovascular disease, hyperlipidemia, diabetes mellitus type 2, and diabetic polyneuropathy, GERD with duodenal ulcer, and obesity with obstructive sleep apnea, and obesity hypoventilation syndrome, chronic diastolic heart filure, patient was last hospitalized at [facility] about a year ago with accelerated hypertension and hypervolemic hyponatremia and was sen by cardiology and nephrology , patient has been complaining of increased swelling both lower extremities associated with incr eased shortness of breath, she was having some palpitation in her chest, she ended up coming to the emergency department at [facility], initial EKG did show evidence of atrial fibrillation with rapid ventricular response, the subsequent EKG did show evidence of sinus tachycardia with PACs, nevertheless patient never started on anticoagulation at that time, patient was started back on atenolol 50 mg orally twice every day as well as her losartan 100 mg once every day along with the clonidine, and she was found to have hypervolemic hyponatremia, her sodium was 122, she was started on Lasix 60 mg IV push x 1 followed by 40 mg IV push every 12 hours, patient has been seen in consultation by cardiology as well as nephrology and she was admitted to the hospital for acute diastolic heart failure due to atrial fibrillation with rapid ventricular response as well as hypervolemic hyponatremia. 12/14/2023 Patient seen and evaluated in room sitting up in bedside chair; does not report any specific complaints -Vital signs are reviewed and remained stable -- Lab review shows an elevated TSH of 5.54 with free T4 of 1.83; we will try small dose of thyroid supplement in form of Synthroid 25 mcg daily; repeat thyroid levels in 4 to 6 weeks; this is discussed with the patient and she is agreeable to proceed with supplement -- Sodium level remains at 126; BUN/creatinine improving to 15/1.19 from 45/1.27 Nephrology on board and recommending to continue reduced dose of losartan; plan to repeat Samsca; patient remains on IV Lasix and on fluid restriction Objective - Vital Signs Vital signs: Vital Signs Temp 97.6 F 12/14/23 07:56 Pulse 61 12/14/23 07:56 Resp 17 12/14/23 07:56 BP 133/70 12/14/23 07:56 Pulse Ox 98 12/14/23 07:56 FiO2 Intake & Output 12/13/23 12/14/23 12/14/23 18:59 06:59 18:59 Intake Total 670 250 960 Output Total 400 800 Balance 270 -550 960 Weight 117 kg Intake: IV 10 10 Invasive Line 1 10 10 Oral 660 240 960 Output: Urine 400 800 Other: Voiding Method Toilet Toilet Toilet # Voids 1 # Bowel Movements 1 - Exam HEENT: Head is atraumatic, normocephalic, pupils were equal round reactive to light and recommendation, extraocular muscle movement were intact, sclera nonicteric, conjunctivae were pale, mucous membranes of the mouth are somewhat dry. Neck: Supple, no JVP, normal carotid upstroke bilaterally, no lymphadenopathy. Chest: Decreased breath sounds at the bases, few rhonchi, no expiratory wheezes, no chest wall tenderness, no intercostal retractions. Heart: First heart sound is normal, second heart sound is normal there is BIANCA 2/6 located at the left sternal border. Abdomen: Soft, obese nontender, nondistended, positive bowel sounds. Extremities: There is +2 edema no calf tenderness DP +2 bilaterally. - Labs CBC & Chem 7: 12/14/23 08:56 12/14/23 14:01 Labs: Abnormal Lab Results - Last 24 Hours (Table) 12/13/23 12/13/23 12/13/23 Range/Units 09:20 09:20 11:35 WBC 14.5 H (3.8-10.6) k/uL RBC 3.66 L (3.80-5.40) m/uL Hgb 11.0 L (11.4-16.0) gm/dL Hct 33.1 L (34.0-46.0) % Neutrophils # 10.0 H (1.3-7.7) k/uL Sodium 124 L (137-145) mmol/L Potassium 5.2 H (3.5-5.1) mmol/L Chloride 89 L (98-107) mmol/L BUN 45 H (7-17) mg/dL Creatinine 1.27 H (0.52-1.04) mg/dL Glucose 241 H (74-99) mg/dL POC Glucose (mg/dL) 190 H (70-110) mg/dL AST 64 H (14-36) U/L ALT 38 H (4-34) U/L Alkaline Phosphatase 206 H (38-126) U/L 12/13/23 12/13/23 12/13/23 Range/Units 15:35 16:43 20:30 WBC (3.8-10.6) k/uL RBC (3.80-5.40) m/uL Hgb (11.4-16.0) gm/dL Hct (34.0-46.0) % Neutrophils # (1.3-7.7) k/uL Sodium 123 L (137-145) mmol/L Potassium (3.5-5.1) mmol/L Chloride (98-107) mmol/L BUN (7-17) mg/dL Creatinine (0.52-1.04) mg/dL Glucose (74-99) mg/dL POC Glucose (mg/dL) 207 H 217 H (70-110) mg/dL AST (14-36) U/L ALT (4-34) U/L Alkaline Phosphatase (38-126) U/L 12/13/23 12/13/23 12/14/23 Range/Units 20:56 22:49 06:18 WBC (3.8-10.6) k/uL RBC (3.80-5.40) m/uL Hgb (11.4-16.0) gm/dL Hct (34.0-46.0) % Neutrophils # (1.3-7.7) k/uL Sodium 126 L (137-145) mmol/L Potassium (3.5-5.1) mmol/L Chloride (98-107) mmol/L BUN (7-17) mg/dL Creatinine (0.52-1.04) mg/dL Glucose (74-99) mg/dL POC Glucose (mg/dL) 248 H 195 H (70-110) mg/dL AST (14-36) U/L ALT (4-34) U/L Alkaline Phosphatase (38-126) U/L 12/14/23 Range/Units 08:56 WBC (3.8-10.6) k/uL RBC (3.80-5.40) m/uL Hgb (11.4-16.0) gm/dL Hct (34.0-46.0) % Neutrophils # (1.3-7.7) k/uL Sodium 126 L (137-145) mmol/L Potassium (3.5-5.1) mmol/L Chloride 90 L (98-107) mmol/L BUN 50 H (7-17) mg/dL Creatinine 1.19 H (0.52-1.04) mg/dL Glucose 279 H (74-99) mg/dL POC Glucose (mg/dL) (70-110) mg/dL AST (14-36) U/L ALT (4-34) U/L Alkaline Phosphatase (38-126) U/L Assessment and Plan Assessment: 1. Atrial fibrillation with rapid ventricular response currently in sinus tachycardia with PACs, patient seems to be going in and out of atrial fibrillation, continue patient on atenolol 50 mg orally twice every day, patient will be started on Eliquis 5 mg orally twice every day, cardiology consultation appreciated, echocardiogram will be obtained to evaluate LV function, we will follow-up with the patient very closely. 2. Hypervolemic hyponatremia. we will continue with Lasix 40 mg IV push every 24 hours, we will monitor labs 3. Hypertension and hypertensive cardiovascular disease. we will continue with Atenolol 50 mg po bid, Clonidine 0.2 mg 1 tabs po at bedtime, Losartan 100 mg po daily, Amlodipine 5 mg orally daily and we will continue with BP monitoring. 4. Mixed hyperlipidemia. we will continue with low cholesterol diet and exercise and weight loss, patient is not taking any statin at this time., keep LDL-c 55- 70 5. Diabetes Mellitus type 2. we will continue with Levemir 12 units at bedtime along with SSI and we will continue with Metformin 500 mg po daily and Pioglitasone 30 mg po daily, BGM before each meal and at bedtime. 6. Obesity and obstructive sleep apnea and OHS. not able to tolerate CPAP. 7. Vitamin D deficiency. we will continue with vitamin d supplements. 8. Asthma. stable. 9. GERD with PUD. we will continue with Protonix 40 mg po daily. 10. Anxiety.we will continue with Xanax as needed. 11. DVT Prophylaxis patient will be started on Eliquis 5 mg orally twice every day. 12. GI Prophylaxis . we will continue with Pantoprazole 40 mg po daily. 13. Physical therapy evaluation.
[2023-12-14 16:26] LABS: Glucose,Whole Blood 193 mg/dL (70-110)
[2023-12-14] MEDS: FUROSEMIDE 10 MG/ML 10 ML VIAL IV SCH (17:07)
[2023-12-14 20:29] LABS: Glucose,Whole Blood 231 mg/dL (70-110)
[2023-12-15 00:10] LABS: Glucose,Whole Blood 237 mg/dL (70-110)
[2023-12-15 01:44] LABS: Glucose,Whole Blood 231 mg/dL (70-110)
[2023-12-15 06:27] LABS: Basophils # (A) 0.1 k/uL (0-0.2); Basophils % (A) 1 %; Eosinophils # (A) 0.4 k/uL (0-0.7); Eosinophils % (A) 3 %; HCT 35.9 % (34.0-46.0); HGB 11.6 gm/dL (11.4-16.0); Lymphocytes # (A) 2.8 k/uL (1.0-4.8); Lymphocytes % (A) 20 %; MCH 29.3 pg (25.0-35.0); MCHC 32.4 g/dL (31.0-37.0); MCV 90.4 fL (80.0-100.0); Mean Platelet Volume 8.1; Monocytes # (A) 0.8 k/uL (0-1.0); Monocytes % (A) 6 %; Neutrophils # (A) 9.9 k/uL (1.3-7.7); Neutrophils % (A) 70 %; Platelet Count 462 k/uL (150-450); RBC 3.97 m/uL (3.80-5.40); RDW 14.2 % (11.5-15.5); WBC 14.1 k/uL (3.8-10.6)
[2023-12-15 06:35] LABS: Glucose,Whole Blood 259 mg/dL (70-110)
[2023-12-15 07:15] LABS: African American GFR (CKD) 47 (>60 ml/min/1.73 sqM); Anion Gap 7 mmol/L; Blood Urea Nitrogen 51 mg/dL (7-17); Calcium 9.7 mg/dL (8.4-10.2); Carbon Dioxide 28 mmol/L (22-30); Chloride 92 mmol/L (98-107); Glucose 248 mg/dL (74-99); Non-African American GFR(CKD) 40 (>60 ml/min/1.73 sqM); Potassium 5.1 mmol/L (3.5-5.1); Sodium 127 mmol/L (137-145)
--- NOTE | 2023-12-15 09:56 | P.PN ---
Subjective 78 year old female with a previous medical history significant for hypertension and hypertensive cardiovascular disease, hyperlipidemia, diabetes mellitus type 2, and diabetic polyneuropathy, GERD with duodenal ulcer, and obesity with obstructive sleep apnea, and obesity hypoventilation syndrome, chronic diastolic heart filure, patient was last hospitalized at [facility] about a year ago with accelerated hypertension and hypervolemic hyponatremia and was sen by cardiology and nephrology , patient has been complaining of increased swelling both lower extremities associated with increased shortness of breath, she was having some palpitation in her chest, she ended up coming to the emergency department at [facility], initial EKG did show evidence of atrial fibrillation with rapid ventricular response, the subsequent EKG did show evidence of sinus tachycardia with PACs, nevertheless patient never started on anticoagulation at that time, patient was started back on atenolol 50 mg orally twice every day as well as her losartan 100 mg once every day along with the clonidine, and she was found to have hypervolemic hyponatremia, her sodium was 122, she was started on Lasix 60 mg IV push x 1 followed by 40 mg IV push every 12 hours, patient has been seen in consultation by cardiology as well as nephrology and she was admitted to the hospital for acute diastolic heart failure due to atrial fibrillation with rapid ventricular response as well as hypervolemic hyponatremia. 12/14/2023 Patient seen and evaluated in room sitting up in bedside chair; does not report any specific complaints -Vital signs are reviewed and remained stable -- Lab review shows an elevated TSH of 5.54 with free T4 of 1.83; we will try small dose of thyroid supplement in form of Synthroid 25 mcg daily; repeat thyroid levels in 4 to 6 weeks; this is discussed with the patient and she is agreeable to proceed with supplement -- Sodium level remains at 126; BUN/creatinine improving to 15/1.19 from 45/1.27 Nephrology on board and recommending to continue reduced dose of losartan; plan to repeat Samsca; patient remains on IV Lasix and on fluid restriction 12/14 Patient is awake and alert sitting in bed No chest pain no dyspnea Legs are swollen but patient states they are better now Patient vital stable Sodium was 1 24-1 26 on admission, she received 1 dose of Samsca on 12/12 Sodium went up to 128 yesterday, today is 127 Creatinine still elevated 1.27, she has mild leukocytosis at 14,000 but no fever no signs of infection She has hemoglobin A1c of 9.7 Ejection fraction 55 to 60% High TSH but normal T4 Patient also on IV Lasix 40 mg increased to 60 mg Patient is so eager to go home today I have lengthy discussion with the patient, currently patient is not medically stable for discharge. Patient has capacity make medical decision. Patient was counseled against leaving AMA risks including but not limited to worsening renal function and/or are explained for her and she verbalized understanding. Keep monitoring sodium and blood pressure Discussed with staff Objective - Vital Signs Vital signs: Vital Signs Temp 97.5 F L 12/15/23 08:40 Pulse 58 L 12/15/23 08:40 Resp 18 12/15/23 08:40 BP 158/62 12/15/23 08:40 Pulse Ox 98 12/15/23 08:40 FiO2 Intake & Output 12/14/23 12/15/23 12/15/23 18:59 06:59 18:59 Intake Total 1656 10 240 Output Total 1151 1250 Balance 505 -1240 240 Weight 117 kg 115.8 kg Intake: IV 10 Invasive Line 1 10 Oral 1656 240 Output: Urine 1150 1250 Stool 1 Other: Voiding Method Toilet Toilet Toilet # Voids 1 # Bowel Movements 1 - Exam -GENERAL: The patient is alert and oriented x3, not in any acute distress. Well developed, well nourished. Obese HEENT: Pupils are round and equally reacting to light. EOMI. No scleral icterus. No conjunctival pallor. Normocephalic, atraumatic. No pharyngeal erythema. No thyromegaly. CARDIOVASCULAR: S1 and S2 present. No murmurs, rubs, or gallops. PULMONARY: Chest is clear to auscultation, no wheezing , no crackles. ABDOMEN: Soft, nontender, nondistended, normoactive bowel sounds. No palpable organomegaly. MUSCULOSKELETAL: No joint swelling or deformity. -EXTREMITIES: No cyanosis, clubbing, 1+ bilateral pitting leg/pedal edema. NEUROLOGICAL: Gross neurological examination did not reveal any focal deficits. SKIN: No rashes. no petechiae. - Labs CBC & Chem 7: 12/15/23 06:05 12/15/23 06:05 Labs: Abnormal Lab Results - Last 24 Hours (Table) 12/14/23 12/14/23 12/14/23 Range/Units 08:56 11:08 14:01 WBC 13.6 H (3.8-10.6) k/uL Plt Count 456 H (150-450) k/uL Neutrophils # 9.6 H (1.3-7.7) k/uL Sodium 126 L (137-145) mmol/L Chloride (98-107) mmol/L BUN (7-17) mg/dL Creatinine (0.52-1.04) mg/dL Glucose (74-99) mg/dL POC Glucose (mg/dL) 301 H (70-110) mg/dL 12/14/23 12/14/23 12/14/23 Range/Units 16:25 20:28 20:49 WBC (3.8-10.6) k/uL Plt Count (150-450) k/uL Neutrophils # (1.3-7.7) k/uL Sodium 128 L (137-145) mmol/L Chloride (98-107) mmol/L BUN (7-17) mg/dL Creatinine (0.52-1.04) mg/dL Glucose (74-99) mg/dL POC Glucose (mg/dL) 193 H 231 H (70-110) mg/dL 12/15/23 12/15/23 12/15/23 Range/Units 00:09 01:43 06:05 WBC 14.1 H (3.8-10.6) k/uL Plt Count 462 H (150-450) k/uL Neutrophils # 9.9 H (1.3-7.7) k/uL Sodium (137-145) mmol/L Chloride (98-107) mmol/L BUN (7-17) mg/dL Creatinine (0.52-1.04) mg/dL Glucose (74-99) mg/dL POC Glucose (mg/dL) 237 H 231 H (70-110) mg/dL 12/15/23 12/15/23 Range/Units 06:05 06:33 WBC (3.8-10.6) k/uL Plt Count (150-450) k/uL Neutrophils # (1.3-7.7) k/uL Sodium 127 L (137-145) mmol/L Chloride 92 L (98-107) mmol/L BUN 51 H (7-17) mg/dL Creatinine 1.27 H (0.52-1.04) mg/dL Glucose 248 H (74-99) mg/dL POC Glucose (mg/dL) 259 H (70-110) mg/dL Assessment and Plan Assessment: 1. Atrial fibrillation with rapid ventricular response currently in sinus tachycardia with PACs, patient seems to be going in and out of atrial fibrillation, continue patient on atenolol 50 mg orally twice every day, patient will be started on Eliquis 5 mg orally twice every day, cardiology consultation appreciated, echocardiogram will be obtained to evaluate LV function, we will follow-up with the patient very closely. 2. Hypervolemic hyponatremia. we will continue with Lasix 40 mg IV push every 24 hours, we will monitor labs 3. Hypertension and hypertensive cardiovascular disease. we will continue with Atenolol 50 mg po bid, Clonidine 0.2 mg 1 tabs po at bedtime, Losartan 100 mg po daily, Amlodipine 5 mg orally daily and we will continue with BP monitoring. 4. Mixed hyperlipidemia. we will continue with low cholesterol diet and exercise and weight loss, patient is not taking any statin at this time., keep LDL-c 55- 70 5. Diabetes Mellitus type 2. we will continue with Levemir 12 units at bedtime along with SSI and we will continue with Metformin 500 mg po daily and Pioglitasone 30 mg po daily, BGM before each meal and at bedtime. 6. Obesity and obstructive sleep apnea and OHS. not able to tolerate CPAP. 7. Vitamin D deficiency. we will continue with vitamin d supplements. 8. Asthma. stable. 9. GERD with PUD. we will continue with Protonix 40 mg po daily. 10. Anxiety.we will continue with Xanax as needed. 11. DVT Prophylaxis patient will be started on Eliquis 5 mg orally twice every day. 12. GI Prophylaxis . we will continue with Pantoprazole 40 mg po daily. 13. Physical therapy evaluation.
[2023-12-15] MEDS: TOLVAPTAN 30 MG TABLET PO ONE (11:19)
[2023-12-15 11:26] LABS: Glucose,Whole Blood 249 mg/dL (70-110)
--- NOTE | 2023-12-15 11:36 | P.PN ---
Subjective Patient is seen for follow-up for hyponatremia, hypervolemic. Maintained on IV Lasix. sodium improved to 128 yesterday and it is 127 today. Status post Samsca. Patient is maintained on fluid restriction. Leg swelling has improved. No shortness of breath. Objective - Vital Signs Vital signs: Vital Signs Temp 97.5 F L 12/15/23 08:40 Pulse 58 L 12/15/23 11:17 Resp 17 12/15/23 11:17 BP 160/75 12/15/23 11:17 Pulse Ox 99 12/15/23 11:17 FiO2 Intake & Output 12/14/23 12/15/23 12/15/23 18:59 06:59 18:59 Intake Total 1656 10 240 Output Total 1151 1250 300 Balance 505 -1240 -60 Weight 117 kg 115.8 kg Intake: IV 10 Invasive Line 1 10 Oral 1656 240 Output: Urine 1150 1250 300 Stool 1 Other: Voiding Method Toilet Toilet Toilet # Voids 1 1 # Bowel Movements 1 1 - Exam On examination patient is comfortable awake alert oriented x 3. Examination of the heart S1 and S2 Examination of the lungs bilateral breath sounds are heard. Abdomen is soft, non tender Examination of the lower extremities shows edema 2-3+ bilaterally, improved per patient. COMMAND POST SUPERINTENDENT exam grossly intact - Labs CBC & Chem 7: 12/15/23 06:05 12/15/23 06:05 Labs: Abnormal Lab Results - Last 24 Hours (Table) 12/14/23 12/14/23 12/14/23 Range/Units 14:01 16:25 20:28 WBC (3.8-10.6) k/uL Plt Count (150-450) k/uL Neutrophils # (1.3-7.7) k/uL Sodium 126 L (137-145) mmol/L Chloride (98-107) mmol/L BUN (7-17) mg/dL Creatinine (0.52-1.04) mg/dL Glucose (74-99) mg/dL POC Glucose (mg/dL) 193 H 231 H (70-110) mg/dL 12/14/23 12/15/23 12/15/23 Range/Units 20:49 00:09 01:43 WBC (3.8-10.6) k/uL Plt Count (150-450) k/uL Neutrophils # (1.3-7.7) k/uL Sodium 128 L (137-145) mmol/L Chloride (98-107) mmol/L BUN (7-17) mg/dL Creatinine (0.52-1.04) mg/dL Glucose (74-99) mg/dL POC Glucose (mg/dL) 237 H 231 H (70-110) mg/dL 12/15/23 12/15/23 12/15/23 Range/Units 06:05 06:05 06:33 WBC 14.1 H (3.8-10.6) k/uL Plt Count 462 H (150-450) k/uL Neutrophils # 9.9 H (1.3-7.7) k/uL Sodium 127 L (137-145) mmol/L Chloride 92 L (98-107) mmol/L BUN 51 H (7-17) mg/dL Creatinine 1.27 H (0.52-1.04) mg/dL Glucose 248 H (74-99) mg/dL POC Glucose (mg/dL) 259 H (70-110) mg/dL 12/15/23 Range/Units 11:25 WBC (3.8-10.6) k/uL Plt Count (150-450) k/uL Neutrophils # (1.3-7.7) k/uL Sodium (137-145) mmol/L Chloride (98-107) mmol/L BUN (7-17) mg/dL Creatinine (0.52-1.04) mg/dL Glucose (74-99) mg/dL POC Glucose (mg/dL) 249 H (70-110) mg/dL Assessment and Plan Assessment: 1. Hyponatremia, hypervolemic. Urine sodium 74 and urine osmolality 251. TSH slightly high at 5.5. Maintained on IV Lasix and has been receiving Samsca. 2. Hypomagnesemia from diuretic use. Replaced. Better. 3. Benign hypertension. Controlled. 4. Volume overload. Improving with diuresis. 5. Acute on chronic diastolic CHF and moderate tricuspid regurgitation and pulmonary hypertension. 6. Diabetes mellitus. 7. Morbid obesity. 8. Acute kidney injury secondary to vasomotor nephropathy from diuresis in the setting of use of angiotensin receptor blockers. Creatinine improved to 1.1 today. No evidence of urinary retention. losartan dose was decreased yesterday. Plan: Repeat Samsca Repeat sodium this afternoon Continue with fluid restriction Continue with IV Lasix, increased dose. May need to increase Cozaar if blood pressure remains uncontrolled.
[2023-12-15 16:30] LABS: Glucose,Whole Blood 206 mg/dL (70-110)
[2023-12-15 20:05] LABS: Glucose,Whole Blood 177 mg/dL (70-110)
[2023-12-15] MEDS: ACETAMINOPHEN TAB 325 MG TAB PO PRN (21:19)
[2023-12-15 23:01] LABS: Glucose,Whole Blood 258 mg/dL (70-110)
[2023-12-16 06:09] LABS: Glucose,Whole Blood 210 mg/dL (70-110)
[2023-12-16 08:14] LABS: HCT 36.9 % (34.0-46.0); HGB 12.2 gm/dL (11.4-16.0); MCH 30.1 pg (25.0-35.0); MCHC 33.1 g/dL (31.0-37.0); MCV 91.2 fL (80.0-100.0); Mean Platelet Volume 8.2; Platelet Count 443 k/uL (150-450); RBC 4.04 m/uL (3.80-5.40); RDW 14.1 % (11.5-15.5); WBC 11.9 k/uL (3.8-10.6)
[2023-12-16 08:24] LABS: African American GFR (CKD) 52 (>60 ml/min/1.73 sqM); Anion Gap 9 mmol/L; Blood Urea Nitrogen 49 mg/dL (7-17); Calcium 9.9 mg/dL (8.4-10.2); Carbon Dioxide 27 mmol/L (22-30); Chloride 93 mmol/L (98-107); Glucose 192 mg/dL (74-99); Non-African American GFR(CKD) 45 (>60 ml/min/1.73 sqM); Potassium 5.2 mmol/L (3.5-5.1); Sodium 129 mmol/L (137-145)
[2023-12-16 08:59] VITALS: RESP 20
[2023-12-16 09:34] LABS: Band Neutrophils % 1 %; Lymphocytes # (M) 2.38 k/uL (1.0-4.8); Monocytes # (M) 1.31 k/uL (0-1.0); Neutrophils % (M) 63 %; Nucleated Red Blood Cells 0 /100 WBC (0-0); RBC Morphology Normal; Total Cells Counted 100
--- NOTE | 2023-12-16 11:14 | P.PN ---
Subjective Patient is seen for follow-up for hyponatremia, hypervolemic. Maintained on IV Lasix. sodium improved to 129 today. Serum creatinine 1.15. Status post Samsca. Patient is maintained on fluid restriction. Leg swelling has improved. No shortness of breath. Objective - Vital Signs Vital signs: Vital Signs Temp 98.2 F 12/16/23 08:54 Pulse 56 L 12/16/23 08:54 Resp 20 12/16/23 08:54 BP 137/76 12/16/23 08:54 Pulse Ox 100 12/16/23 08:54 FiO2 Intake & Output 12/15/23 12/16/23 12/16/23 18:59 06:59 18:59 Intake Total 1440 10 490 Output Total 900 1001 200 Balance 540 -991 290 Weight 115.2 kg Intake: IV 10 Invasive Line 2 10 Oral 1440 490 Output: Urine 900 1000 200 Stool 1 Other: Voiding Method Toilet Toilet Toilet # Voids 1 # Bowel Movements 1 1 - Exam On examination patient is comfortable awake alert oriented x 3. Examination of the lower extremities shows edema 2-3+ bilaterally, improved per patient. BODY AND FENDER MECHANIC APPRENTICE exam grossly intact - Labs CBC & Chem 7: 12/16/23 07:14 12/16/23 07:14 Labs: Abnormal Lab Results - Last 24 Hours (Table) 12/15/23 12/15/23 12/15/23 Range/Units 11:25 16:28 16:45 WBC (3.8-10.6) k/uL Monocytes # (Manual) (0-1.0) k/uL Sodium 127 L (137-145) mmol/L Potassium (3.5-5.1) mmol/L Chloride (98-107) mmol/L BUN (7-17) mg/dL Creatinine (0.52-1.04) mg/dL Glucose (74-99) mg/dL POC Glucose (mg/dL) 249 H 206 H (70-110) mg/dL 12/15/23 12/15/23 12/16/23 Range/Units 20:04 22:59 06:08 WBC (3.8-10.6) k/uL Monocytes # (Manual) (0-1.0) k/uL Sodium (137-145) mmol/L Potassium (3.5-5.1) mmol/L Chloride (98-107) mmol/L BUN (7-17) mg/dL Creatinine (0.52-1.04) mg/dL Glucose (74-99) mg/dL POC Glucose (mg/dL) 177 H 258 H 210 H (70-110) mg/dL 12/16/23 12/16/23 Range/Units 07:14 07:14 WBC 11.9 H (3.8-10.6) k/uL Monocytes # (Manual) 1.31 H (0-1.0) k/uL Sodium 129 L (137-145) mmol/L Potassium 5.2 H (3.5-5.1) mmol/L Chloride 93 L (98-107) mmol/L BUN 49 H (7-17) mg/dL Creatinine 1.15 H (0.52-1.04) mg/dL Glucose 192 H (74-99) mg/dL POC Glucose (mg/dL) (70-110) mg/dL Assessment and Plan Assessment: 1. Hyponatremia, hypervolemic. Urine sodium 74 and urine osmolality 251. TSH slightly high at 5.5. Maintained on IV Lasix and has been receiving Samsca. 2. Hypomagnesemia from diuretic use. Replaced. Better. 3. Benign hypertension. Controlled. 4. Volume overload. Improving with diuresis. 5. Acute on chronic diastolic CHF and moderate tricuspid regurgitation and pulmonary hypertension. 6. Diabetes mellitus. 7. Morbid obesity. 8. Acute kidney injury secondary to vasomotor nephropathy from diuresis in the setting of use of angiotensin receptor blockers. Creatinine improved to 1.1 today. No evidence of urinary retention. losartan dose was decreased 2 days ago. Plan: patient can be discharged from nephrology standpoint. Advised low potassium diet. If blood pressure remains elevated we can increase the Cozaar back to 100 mg daily. patient will be maintained on Lasix 60 mg twice a day as outpatient. Follow-up as outpatient in 1 week. Repeat labs in 2-3 days post discharge. Maintain fluid restriction post discharge.
[2023-12-16 11:46] VITALS: TEMP 98.1
[2023-12-16 11:57] LABS: Glucose,Whole Blood 256 mg/dL (70-110)
--- NOTE | 2023-12-16 15:23 | P.DS ---
Providers Date of admission: 12/11/23 10:44 Expected date of discharge: 12/16/23 Attending physician: Latanya Sanchez Consults: 12/11/23 10:38 Consult Physician Urgent Consulting Provider: [facility] Consult Reason/Comments: aechf Do you want consulting provider notified?: Yes Consult Physician Urgent Consulting Provider: Abhi Palencia Consult Reason/Comments: acute/recurrent hyponatremia Do you want consulting provider notified?: Yes Primary care physician: Latanya Sanchez Hospital Course: HISTORY OF PRESENT ILLNESS: This is a 78 year old female with a previous medical history significant for hypertension and hypertensive cardiovascular disease, hyperlipidemia, diabetes mellitus type 2, and diabetic polyneuropathy, GERD with duodenal ulcer, and obesity with obstructive sleep apnea, and obesity hypoventilation syndrome, chronic diastolic heart filure, patient was last hospitalized at [facility] about a year ago with accelerated hypertensi on and hypervolemic hyponatremia and was sen by cardiology and nephrology , patient has been complaining of increased swelling both lower extremities associated with increased shortness of breath, she was having some palpitation in her chest, she ended up coming to the emergency department at [facility], initial EKG did show evidence of atrial fibrillation with rapid ventricular response, the subsequent EKG did show evidence of sinus tachycardia with PACs, nevertheless patient never started on anticoagulation at that time, patient was started back on atenolol 50 mg orally twice every day as well as her losartan 100 mg once every day along with the clonidine, and she was found to have hypervolemic hyponatremia, her sodium was 122, she was started on Lasix 60 mg IV push x 1 followed by 40 mg IV push every 12 hours, patient has been seen in consultation by cardiology as well as nephrology and she was admitted to the hospital for acute diastolic heart failure due to atrial fibrillation with rapid ventricular response as well as hypervolemic hyponatremia. 12/11: Patient is sitting up in a recliner chair, her daughter was at the bedside, she was seen earlier by cardiology, she was started on Eliquis 5 mg orally twice every day due to atrial fibrillation with RVR, patient also converted back to sinus rhythm, continue atenolol 50 mg twice every day continue Eliquis 5 mg orally twice every day, continue other treatment plan, echocardiogram was done, we will follow-up with the patient for another 24 hours, her repeated sodium was 120 5 in the morning, repeat sodium in the aft ernoon still pending, patient has been followed by nephrology as well, will continue current treatment plan, patient will require physical therapy evaluation hopefully in the next 24 hours. 12/14/2023 Patient seen and evaluated in room sitting up in bedside chair; does not report any specific complaints -Vital signs are reviewed and remained stable -- Lab review shows an elevated TSH of 5.54 with free T4 of 1.83; we will try small dose of thyroid supplement in form of Synthroid 25 mcg daily; repeat thyroid levels in 4 to 6 weeks; this is discussed with the patient and she is agreeable to proceed with supplement -- Sodium level remains at 126; BUN/creatinine improving to 15/1.19 from 45/1.27 Nephrology on board and recommending to continue reduced dose of losartan; plan to repeat Samsca; patient remains on IV Lasix and on fluid restriction 12/14 Patient is awake and alert sitting in bed No chest pain no dyspnea Legs are swollen but patient states they are better now Patient vital stable Sodium was 1 24-1 26 on admission, she received 1 dose of Samsca on 12/12 Sodium went up to 128 yesterday, today is 127 Creatinine still elevated 1.27, she has mild leukocytosis at 14,000 but no fever no signs of infection She has hemoglobin A1c of 9.7 Ejection fraction 55 to 60% High TSH but normal T4 Patient also on IV Lasix 40 mg increased to 60 mg Patient is so eager to go home today I have lengthy discussion with the patient, currently patient is not medically stable for discharge. Patient has capacity make medical decision. Patient was counseled against leaving AMA risks including but not limited to worsening renal function and/or are explained for her and she verbalized understanding. Keep monitoring sodium and blood pressure Discussed with staff 12/15: Patient sitting up in recliner chair no apparent distress, she denies any chest pain, shortness of breath, she has no abdominal pain, nausea vomiting or diarrhea, patient is cleared by cardiology as well as by nephrology, it was recommended for the patient to go on oral Lasix 60 mg orally twice every day as to follow-up with her fluid designer in the next week or so, she will have blood work done including CBC CMP and magnesium level in the next 3 days this will be done in my office, monitor the patient very closely, patient is not able to tolerate her Eliquis due to her hemorrhoidal bleed, patient is not able to tolerate her levothyroxine as well, therefore she will not take it she stated, I sent the prescription for the levothyroxine as well as for her Lasix to her pharmacy, we will follow-up with the patient in the next week or so. She is to stop by in the office to do CBC CMP and magnesium in 3 days from now. Discharge diagnoses: 1. Atrial fibrillation with rapid ventricular response currently in sinus tachycardia with PACs, 2. Hypervolemic hyponatremia. 3. Hypertension and hypertensive cardiovascular disease. 4. Mixed hyperlipidemia. 5. Diabetes Mellitus type 2. 6. Obesity and obstructive sleep apnea and OHS. 7. Vitamin D deficiency. 8. Asthma. stable. 9. GERD with PUD. 10. Anxiety. 11. Bleeding Hemorrhoids Patient Condition at Discharge: Stable Plan - Discharge Summary New Discharge Prescriptions: New Furosemide [Lasix] 60 mg PO BID@0900,1600 #60 tab Levothyroxine Sodium [Synthroid] 25 mcg PO DAILY@0630 #30 tab Acetaminophen Tab [Tylenol] 650 mg PO Q4HR PRN #0 tab PRN Reason: Fever And/ Or Pain Continue Pioglitazone [Actos] 15 mg PO DAILY@1100 metFORMIN HCL [Glucophage] 1,000 mg PO BID@1500,2100 atenoloL [Tenormin] 50 mg PO BID@1100,2100 Insulin Glargine,Hum.rec.anlog [Lantus Solostar Pen] 7 - 12 units SQ HS Magnesium Oxide [Mag-Ox] 400 mg PO DAILY@1500 Losartan Potassium 100 mg PO DAILY@1100 amLODIPine [Norvasc] 5 mg PO DAILY@1100 cloNIDine HCL [Catapres] 0.2 mg PO HS ALPRAZolam [Xanax] 0.125 mg PO BID@1100,2100 Acetaminophen Tab [Tylenol] 500 mg PO DAILY@1500 Discontinued Furosemide [Lasix] 40 mg PO DAILY #30 tablet Discharge Medication List Pioglitazone [Actos] 15 mg PO DAILY@1100 03/11/16 [History] atenoloL [Tenormin] 50 mg PO BID@1100,2100 03/11/16 [History] metFORMIN HCL [Glucophage] 1,000 mg PO BID@1500,209903/11/16 [History] Insulin Glargine,Hum.rec.anlog [Lantus Solostar Pen] 7 - 12 units SQ HS 10/24/16 [History] ALPRAZolam [Xanax] 0.125 mg PO BID@1100,2100 08/05/22 [History] Acetaminophen Tab [Tylenol] 500 mg PO DAILY@1500 12/11/23 [History] Losartan Potassium 100 mg PO DAILY@1100 12/11/23 [History] Magnesium Oxide [Mag-Ox] 400 mg PO DAILY@1500 12/11/23 [History] amLODIPine [Norvasc] 5 mg PO DAILY@1100 12/11/23 [History] cloNIDine HCL [Catapres] 0.2 mg PO HS 12/11/23 [History] Acetaminophen Tab [Tylenol] 650 mg PO Q4HR PRN #0 tab 12/16/23 [Rx] Furosemide [Lasix] 60 mg PO BID@0900,1600 #60 tab 12/16/23 [Rx] Levothyroxine Sodium [Synthroid] 25 mcg PO DAILY@0630 #30 tab 12/16/23 [Rx] Follow up Appointment(s)/Referral(s): Mary Christopher MD [STAFF PHYSICIAN] - 01/13/24 2:20 pm (No cancellation list; please call periodically to see if office is able to get you in sooner.) Latanya Sanchez MD [Primary Care Provider] - 12/23/23 9:45 am (With nurse practitioner.) Brian Bishop MD [STAFF PHYSICIAN] - 12/24/23 9:00 am [facility] Visiting Nurse, [NON-STAFF] - 1 Week Patient Instructions/Handouts: A-fib (Atrial Fibrillation) (DC), Hyponatremia (DC), Hypomagnesemia (DC) Discharge Disposition: HOME WITH HOME HEALTH SERVICES
[2023-12-16] MEDS: FUROSEMIDE 20 MG TAB PO SCH (15:36)
[2023-12-16 16:15] VITALS: BP 138/74; PULSE 58
== END 2023-12-16 16:19 | disposition home health service (06) | DRG 291 ==
LOC: EC 02:20 → 4SSUR 10:44 → 3SCARD 17:59
PROVIDERS: ADMIT Internal Medicine; ATTEND Internal Medicine
DX: I11.0 Hypertensive heart disease with heart failure (principal); I50.33 Acute on chronic diastolic (congestive) heart failure; N17.0 Acute kidney failure with tubular necrosis; E66.2 Morbid (severe) obesity with alveolar hypoventilation; E87.1 Hypo-osmolality and hyponatremia; Z68.41 Body mass index [BMI] 40.0-44.9, adult; D72.829 Elevated white blood cell count, unspecified; E11.42 Type 2 diabetes mellitus with diabetic polyneuropathy; E78.2 Mixed hyperlipidemia; E83.42 Hypomagnesemia; F41.9 Anxiety disorder, unspecified; I27.20 Pulmonary hypertension, unspecified; I07.1 Rheumatic tricuspid insufficiency; I48.0 Paroxysmal atrial fibrillation; J45.909 Unspecified asthma, uncomplicated; K21.9 Gastro-esophageal reflux disease without esophagitis; K64.9 Unspecified hemorrhoids; I49.1 Atrial premature depolarization; K27.9 Peptic ulcer, site unspecified, unspecified as acute or chronic, without hemorrhage or perforation; Z79.01 Long term (current) use of anticoagulants; Z79.4 Long term (current) use of insulin; Z79.82 Long term (current) use of aspirin; Z79.84 Long term (current) use of oral hypoglycemic drugs; Z79.890 Hormone replacement therapy; Z79.899 Other long term (current) drug therapy; Z86.73 Personal history of transient ischemic attack (TIA), and cerebral infarction without residual deficits; Z28.21 Immunization not carried out because of patient refusal; Z88.8 Allergy status to other drugs, medicaments and biological substances; Z88.1 Allergy status to other antibiotic agents; Z91.040 Latex allergy status; Z88.5 Allergy status to narcotic agent; Z88.0 Allergy status to penicillin; Z91.013 Allergy to seafood
CPT/HCPCS: 36415; 51798; 80048; 80053; 83036; 83735; 83930; 83935; 84145; 84295; 84300; 84439; 84443; 84484; 85025; 93005; 93306; 96365; 96366; 96367; 96368; 99285

== ENCOUNTER 2024-01-06 01:39 | Emergency (ER) | payer MEDICARE ==
[2024-01-06 01:46] VITALS: BP 149/53; PULSE 63; RESP 20; TEMP 97.8
--- NOTE | 2024-01-06 02:37 | US ---
EXAMINATION TYPE: US venous doppler duplex LE LT DATE OF EXAM: 01/06/2024 2:23 AM COMPARISON: NONE CLINICAL INDICATION: Female, 78 years old with history of pain; Patient states pain and lump in leg. No hx DVT. Not on thinners SIDE PERFORMED: Left TECHNIQUE: The lower extremity deep venous system is examined utilizing real time linear array sonog vi with graded compression, doppler sonography and color-flow sonography. VESSELS IMAGED: Common Femoral Vein Deep Femoral Vein Greater Saphenous Vein * Femoral Vein Popliteal Vein Small Saphenous Vein * Proximal Calf Veins (* superficial vessels) Limited due to patient body habitus Left Leg: Appears negative for DVT as best seen Grayscale, color doppler, spectral doppler imaging performed of the deep veins of the left lower extr emity. There is normal flow, compressibility, vascular waveforms. IMPRESSION: Slightly suboptimal but no convincing ultrasound evidence for acute DVT in the left lowe r extremity. [facility], , 01/06/2024 2:34 AM
--- NOTE | 2024-01-06 02:39 | ED ---
Lower Extremity Injury HPI - General Chief Complaint: Extremity Injury, Lower Stated Complaint: Blood Clot Time Seen by Provider: 01/06/24 01:41 Source: patient, EMS, RN notes reviewed Mode of arrival: EMS Limitations: no limitations - History of Present Illness Initial Comments: 78-year-old female presents emerged part via EMS complaint of left leg pain. Patient states she has pain when walking and pain in the back of her calf states that she felt like there was a lump. Patient has no history of DVT denies any chest pain or shortness of breath denies any significant redness or swelling. No paresthesias. - Related Data Home Medications Medication Instructions Recorded Confirmed Pioglitazone [Actos] 15 mg PO DAILY@1100 03/11/16 12/11/23 atenoloL [Tenormin] 50 mg PO BID@1100,209903/11/16 12/11/23 metFORMIN HCL [Glucophage] 1,000 mg PO BID@1500,209903/11/16 12/11/23 Insulin Glargine,Hum.rec.anlog 7 - 12 units SQ HS 10/24/16 12/11/23 [Lantus Solostar Pen] ALPRAZolam [Xanax] 0.125 mg PO BID@1100,209908/05/22 12/11/23 Acetaminophen Tab [Tylenol] 500 mg PO DAILY@1500 12/11/23 12/11/23 Losartan Potassium 100 mg PO DAILY@1100 12/11/23 12/11/23 Magnesium Oxide [Mag-Ox] 400 mg PO DAILY@1500 12/11/23 12/11/23 amLODIPine [Norvasc] 5 mg PO DAILY@1100 12/11/23 12/11/23 cloNIDine HCL [Catapres] 0.2 mg PO HS 12/11/23 12/11/23 Previous Rx's Medication Instructions Recorded Acetaminophen Tab [Tylenol] 650 mg PO Q4HR PRN #0 tab 12/16/23 Furosemide [Lasix] 60 mg PO BID@0900,1600 #60 tab 12/16/23 Levothyroxine Sodium [Synthroid] 25 mcg PO DAILY@0630 #30 tab 12/16/23 Allergies Allergy/AdvReac Type Severity Reaction Status Date / Time cephalexin Allergy Unknown Verified 12/11/23 12:37 ciprofloxacin [From Cipro] Allergy Anaphylaxis Verified 12/11/23 12:37 codeine Allergy Chest Pain Verified 12/11/23 12:37 diclofenac Allergy Anaphylaxis Verified 12/11/23 12:37 difluprednate [From Durezol] Allergy Anaphylaxis Verified 12/11/23 12:37 dog dander Allergy Unknown Verified 12/11/23 12:37 doxycycline [From Vibramycin] Allergy Unknown Verified 12/11/23 12:37 epinephrine Allergy Unknown Verified 12/11/23 12:37 erythromycin base Allergy Unknown Verified 12/11/23 12:37 Fish Containing Products Allergy Anaphylaxis Verified 12/11/23 12:37 latex Allergy Anaphylaxis Verified 12/11/23 12:37 metronidazole [From Flagyl] Allergy Anaphylaxis Verified 12/11/23 12:37 mold Allergy Unknown Verified 12/11/23 12:37 nepafenac Allergy Anaphylaxis Verified 12/11/23 12:37 ofloxacin [From Floxin] Allergy Anaphylaxis Verified 12/11/23 12:37 Penicillins Allergy Unknown Verified 12/11/23 12:37 Childhood shellfish derived [Shellfish] Allergy Anaphylaxis Verified 12/11/23 12:37 strawberry Allergy Burning & Verified 12/11/23 12:37 swelling Thiazides Allergy Unknown Verified 12/11/23 12:37 tomato AdvReac Mild Unknown Verified 12/11/23 12:37 Childhood bandages Allergy Unknown Uncoded 12/11/23 12:37 dust Allergy Unknown Uncoded 12/11/23 12:37 seafood Allergy Anaphylaxis Uncoded 12/11/23 12:37 Review of Systems ROS Statement: Those systems with pertinent positive or pertinent negative responses have been documented in the HPI. ROS Other: All systems not noted in ROS Statement are negative. Past Medical History Past Medical History: Asthma, Diabetes Mellitus, GERD/Reflux, Hyperlipidemia, Hypertension Additional Past Medical History / Comment(s): Zenker's diverticulum, hemrroids History of Any Multi-Drug Resistant Organisms: None Reported Past Surgical History: Cholecystectomy, Hysterectomy, Orthopedic Surgery, Tonsillectomy, Tubal Ligation Additional Past Surgical History / Comment(s): right knee. right cataract. Past Anesthesia/Blood Transfusion Reactions: No Reported Reaction Past Psychological History: Anxiety Smoking Status: Never smoker Past Alcohol Use History: None Reported Past Drug Use History: None Reported - Past Family History Mother Family Medical History: Cancer Additional Family Medical History / Comment(s): . Father Family Medical History: Cancer Additional Family Medical History / Comment(s): prostate General Exam Limitations: no limitations General appearance: alert, in no apparent distress Head exam: Present: atraumatic, normocephalic, normal inspection Respiratory exam: Present: normal lung sounds bilaterally. Absent: respiratory distress, wheezes, rales, rhonchi, stridor Cardiovascular Exam: Present: regular rate, normal rhythm, normal heart sounds. Absent: systolic murmur, diastolic murmur, rubs, gallop, clicks Extremities exam: Present: other (Left calf tenderness, neurovascular intact pulses equal bilaterally no significant erythema swelling) Course Vital Signs 01/06/24 01:43 Temperature 97.8 F Pulse Rate 63 Respiratory 20 Rate Blood Pressure 149/53 O2 Sat by Pulse 96 Oximetry Medical Decision Making - Medical Decision Making Was pt. sent in by a medical professional or institution ([facility], [employer], urgent care, hospital, or half-way...) When possible be specific @ -No Did you speak to anyone other than the patient for history (EMS, parent, family, police, friend...)? What history was obtained from this source @ -No Did you review nursing and triage notes (agree or disagree)? Why? @ -I reviewed and agree with nursing and triage notes Were old charts reviewed (outside hosp., previous admission, EMS record, old EKG, old radiological studies, urgent care reports/EKG's, half-way records)? Report findings @ -No old charts were reviewed Differential Diagnosis (chest pain, altered mental status, abdominal pain women, abdominal pain men, vaginal bleeding, weakness, fever, dyspnea, syncope, headache, dizziness, GI bleed, back pain, seizure, CVA, palpatations, mental health, musculoskeletal)? @ -Leg pain, DVT, superficial thrombophlebitis EKG interpreted by me (3pts min.). @ -None X-rays interpreted by me (1pt min.). @ -None done CT interpreted by me (1pt min.). @ -None done U/S interpreted by me (1pt. min.). @ -Altered venous Doppler left leg negative for acute DVT What testing was considered but not performed or refused? (CT, X-rays, U/S, labs)? Why? @ -None What meds were considered but not given or refused? Why? @ -None Did you discuss the management of the patient with other professionals (professionals i.e. , PA, [employer], lab, RT, psych nurse, social media campaign manager, per diem registered nurse, teacher, guest relation officer, disability case manager)? Give summary @ -No Was smoking cessation discussed for >3mins.? @ -No Was critical care preformed (if so, how long)? @ -No Were there social determinants of health that impacted care today? How? (Homelessness, low income, unemployed, alcoholism, drug addiction, transportation, low edu. Level, literacy, decrease access to med. care, long term, rehab)? @ -No Was there de-escalation of care discussed even if they declined (Discuss DNR or withdrawal of care, Hospice)? DNR status @ -No What co-morbidities impacted this encounter? (DM, HTN, Smoking, COPD, CAD, Cancer, CVA, ARF, Chemo, Hep., AIDS, mental health diagnosis, sleep apnea, morbid obesity)? @ -None Was patient admitted / discharged? Hospital course, mention meds given and route, prescriptions, significant lab abnormalities, going to OR and other pertinent info. @ -Discharge alternatives negative for acute DVT patient has left leg pain will be discharged in stable condition no evidence of secondary infection or other acute problem Undiagnosed new problem with uncertain prognosis? @ -No Drug Therapy requiring intensive monitoring for toxicity (Heparin, Nitro, Insulin, Cardizem)? @ -No Were any procedures done? @ -No Diagnosis/symptom? @ -Left leg pain Acute, or Chronic, or Acute on Chronic? @ -Acute Uncomplicated (without systemic symptoms) or Complicated (systemic symptoms)? @ -uncomplicated Side effects of treatment? @ -No Exacerbation, Progression, or Severe Exacerbation? @ -No Poses a threat to life or bodily function? How? (Chest pain, [place], [place], pneumonia, PE, COPD, DKA, ARF, appy, cholecystitis, CVA, Diverticulitis, Homicidal, Suicidal, threat to staff... and all critical care pts) @ -No Disposition Clinical Impression: Left leg pain Disposition: HOME SELF-CARE Condition: Stable Instructions (If sedation given, give patient instructions): Leg Pain (ED) Additional Instructions: Please return to the Emergency Department if symptoms worsen or any other concerns. Is patient prescribed a controlled substance at d/c from ED?: No Referrals: Latanya Sanchez MD [Primary Care Provider] - 1-2 days Time of Disposition: 02:43
== END 2024-01-06 03:09 | disposition home or self-care (01) ==
LOC: EC 01:39
CPT/HCPCS: 99284

== ENCOUNTER 2024-06-20 18:46 | Inpatient (IN) | payer MEDICARE ==
--- NOTE | 2024-06-20 19:13 | ED ---
Weakness HPI - General Chief complaint: Weakness Stated complaint: Weakness Time Seen by Provider: 06/20/24 19:11 Source: patient, EMS, RN notes reviewed Mode of arrival: EMS Limitations: no limitations - History of Present Illness Initial comments: 78-year-old female presented to the ER via EMS for evaluation of weakness. Patient states for the past month she has had been experiencing dysuria and increasing urinary frequency. Patient had outpatient urine analysis ordered by Dr. Sanchez on which was concerning of infection. She was started on Bactrim. She states since Friday she has been feeling extremely weak and unwell. She states she has sinus pressure and congestion but denies any known fevers or cough. Denies any chest pain, shortness of breath, abdominal pain. She reports yesterday she went to urinate approximately 12 times. She states sometimes she is feel like she is going to have a bowel movement when needing to urinate. Patient denies any diarrhea, melena, hematochezia, nausea, vomiting, chest pain or shortness of breath. - Related Data Home Medications Medication Instructions Recorded Confirmed Pioglitazone [Actos] 15 mg PO DAILY@0903/11/16 06/20/24 atenoloL [Tenormin] 50 mg PO BID@899,209903/11/16 06/20/24 metFORMIN HCL [Glucophage] 1,000 mg PO BID@1399,209903/11/16 06/20/24 Insulin Glargine,Hum.rec.anlog 7 - 18 units SQ HS 10/24/16 06/20/24 [Lantus Solostar Pen] ALPRAZolam [Xanax] 0.125 mg PO BID@899,209908/05/22 06/20/24 Acetaminophen Tab [Tylenol] 500 mg PO TID@0900,1400,209912/11/23 06/20/24 Losartan Potassium 100 mg PO DAILY@89912/11/23 06/20/24 Magnesium Oxide [Mag-Ox] 400 mg PO DAILY@1400 12/11/23 06/20/24 amLODIPine [Norvasc] 5 mg PO DAILY@89912/11/23 06/20/24 cloNIDine HCL [Catapres] 0.2 mg PO HS@209912/11/23 06/20/24 Furosemide [Lasix] 20 mg PO BID@0900,1600 06/20/24 06/20/24 Furosemide [Lasix] 40 mg PO BID@0900,1600 06/20/24 06/20/24 Sulfamethox-Tmp 200-40Mg/5Ml 5 ml PO BID@0700,1900 06/20/24 06/20/24 [Bactrim Suspension] Previous Rx's Medication Instructions Recorded Acetaminophen Tab [Tylenol] 650 mg PO Q4HR PRN #0 tab 12/16/23 Levothyroxine Sodium [Synthroid] 25 mcg PO DAILY@0630 #30 tab 12/16/23 Allergies Allergy/AdvReac Type Severity Reaction Status Date / Time cephalexin Allergy Unknown Verified 06/20/24 19:44 ciprofloxacin [From Cipro] Allergy Anaphylaxis Verified 06/20/24 19:44 codeine Allergy Chest Pain Verified 06/20/24 19:44 diclofenac Allergy Anaphylaxis Verified 06/20/24 19:44 difluprednate [From Durezol] Allergy Anaphylaxis Verified 06/20/24 19:44 dog dander Allergy Unknown Verified 06/20/24 19:44 doxycycline [From Vibramycin] Allergy Unknown Verified 06/20/24 19:44 epinephrine Allergy Unknown Verified 06/20/24 19:44 erythromycin base Allergy Unknown Verified 06/20/24 19:44 Fish Containing Products Allergy Anaphylaxis Verified 06/20/24 19:44 iodine Allergy Unknown Verified 06/20/24 21:42 latex Allergy Anaphylaxis Verified 06/20/24 19:44 metronidazole [From Flagyl] Allergy Anaphylaxis Verified 06/20/24 19:44 mold Allergy Unknown Verified 06/20/24 19:44 nepafenac Allergy Anaphylaxis Verified 06/20/24 19:44 ofloxacin [From Floxin] Allergy Anaphylaxis Verified 06/20/24 19:44 Penicillins Allergy Unknown Verified 06/20/24 19:44 Childhood shellfish derived [Shellfish] Allergy Anaphylaxis Verified 06/20/24 19:44 strawberry Allergy Burning & Verified 06/20/24 19:44 swelling Thiazides Allergy Unknown Verified 06/20/24 19:44 tomato AdvReac Mild Unknown Verified 06/20/24 19:44 Childhood bandages Allergy Unknown Uncoded 06/20/24 19:44 dust Allergy Unknown Uncoded 06/20/24 19:44 seafood Allergy Anaphylaxis Uncoded 06/20/24 19:44 Review of Systems ROS Statement: Those systems with pertinent positive or pertinent negative responses have been documented in the HPI. ROS Other: All systems not noted in ROS Statement are negative. Past Medical History Past Medical History: Asthma, Diabetes Mellitus, GERD/Reflux, Hyperlipidemia, Hypertension Additional Past Medical History / Comment(s): Zenker's diverticulum, hemrroids History of Any Multi-Drug Resistant Organisms: None Reported Past Surgical History: Cholecystectomy, Hysterectomy, Orthopedic Surgery, Tonsillectomy, Tubal Ligation Additional Past Surgical History / Comment(s): right knee. right cataract. Past Anesthesia/Blood Transfusion Reactions: No Reported Reaction Past Psychological History: Anxiety Smoking Status: Never smoker Past Alcohol Use History: None Reported Past Drug Use History: None Reported - Past Family History Mother Family Medical History: Cancer Additional Family Medical History / Comment(s): . Father Family Medical History: Cancer Additional Family Medical History / Comment(s): prostate General Exam Limitations: no limitations General appearance: alert, in no apparent distress ENT exam: Present: normal exam, normal oropharynx, mucous membranes moist Respiratory exam: Present: normal lung sounds bilaterally. Absent: respiratory distress, wheezes, rales, rhonchi, stridor Cardiovascular Exam: Present: regular rate, normal rhythm, normal heart sounds. Absent: systolic murmur, diastolic murmur, rubs, gallop, clicks GI/Abdominal exam: Present: soft, normal bowel sounds. Absent: distended, tenderness, guarding, rebound, rigid Extremities exam: Present: normal inspection, full ROM, normal capillary refill, pedal edema (Nonpitting pretibial bilateral). Absent: tenderness, joint swelling, calf tenderness Neurological exam: Present: alert, oriented X3, CN II-XII intact Skin exam: Present: warm, dry, intact, normal color. Absent: rash Course Vital Signs 06/20/24 06/20/24 06/20/24 18:56 19:34 21:43 Temperature 98.7 F 97.5 F L Pulse Rate 67 65 Respiratory 18 18 Rate Blood Pressure 141/70 160/65 O2 Sat by Pulse 96 96 Oximetry 06/21/24 00:28 Temperature Pulse Rate 60 Respiratory 20 Rate Blood Pressure 141/65 O2 Sat by Pulse Oximetry - Reevaluation(s) Reevaluation #1: 06/20/24 21:[address] Sanchez who accepts admission. He requested ICU admission for hyponatremia. 06/20/24 22:[address] Nita Arellano, for ICU admission. EKG Findings - EKG Comments: EKG Findings:: EKG taken at 19: 46 showing a sinus rhythm. No ST segment elevations or depressions. No T wave inversions. Ventricular rate 60, TN interval 176, QRS duration 90, QT/QTc 400/402. Medical Decision Making - Medical Decision Making Was pt. sent in by a medical professional or institution (, PA, [employer] MECHANIC, urgent care, hospital, or residential...) When possible be specific @ -No Did you speak to anyone other than the patient for history (EMS, parent, family, police, friend...)? What history was obtained from this source @ -Patient's daughter, at bedside, aiding in HPI and past medical history. Did you review nursing and triage notes (agree or disagree)? Why? @ -I reviewed and agree with nursing and triage notes Were old charts reviewed (outside hosp., previous admission, EMS record, old EKG, old radiological studies, urgent care reports/EKG's, residential records)? Report findings @ -[Previous medical records Differential Diagnosis (chest pain, altered mental status, abdominal pain women, abdominal pain men, vaginal bleeding, weakness, fever, dyspnea, syncope, headache, dizziness, GI bleed, back pain, seizure, CVA, palpatations, mental health, musculoskeletal)? @ -Differential Weakness:Hypoglycemia, shock, sepsis, hyponatremia, anemia, infection, OH, ETOH, adverse medicine reaction, overdose, stroke, this is not meant to be an all-inclusive list. EKG interpreted by me (3pts min.). @ -[As above X-rays interpreted by me (1pt min.). @ -CXR interpreted by me showing right sided airspace opacities concerning of pneumonia CT interpreted by me (1pt min.). @ -CT abdomen pelvis showing patchy nodular opacities to the lower lung menon compatible with multifocal pneumonia. Fluid distention of the distal thoracic esophagus just in reflux. No acute abnormality of the abdomen/pelvis. U/S interpreted by me (1pt. min.). @ -[None done What testing was considered but not performed or refused? (CT, X-rays, U/S, labs)? Why? @ -None What meds were considered but not given or refused? Why? @ -None Did you discuss the management of the patient with other professionals (professionals i.e. , PA, [employer] MECHANIC, lab, RT, psych nurse, high school social science teacher, sports lawyer, teacher, supervisory cbp officer, director case management)? Give summary @ -Yes, case discussed with Dr. Sanchez, who accepts admission. He requested ICU admission for hyponatremia. Case also discussed with Dr. Nita Arellano for ICU admission. He reported patient will be holding in the emergency department as the ICU is currently full. Was smoking cessation discussed for >3mins.? @ -No Was critical care preformed (if so, how long)? @ -Yes, 31 minutes Were there social determinants of health that impacted care today? How? (Homelessness, low income, unemployed, alcoholism, drug addiction, transportation, low edu. Level, literacy, decrease access to med. care, long term, rehab)? @ -No Was there de-escalation of care discussed even if they declined (Discuss DNR or withdrawal of care, Hospice)? DNR status @ -No What co-morbidities impacted this encounter? (DM, HTN, Smoking, COPD, CAD, Cancer, CVA, ARF, Chemo, Hep., AIDS, mental health diagnosis, sleep apnea, morbid obesity)? @ -Diabetes mellitus, obese, hypertension, hyperlipidemia, GERD Was patient admitted / discharged? Hospital course, mention meds given and route, prescriptions, significant lab abnormalities, going to OR and other pertinent info. @ -Admitted. 78-year-old female presented to the ER via EMS for evaluation of weakness. Upon rooming, history and physical exam completed. Vitals within acceptable limits. Patient in no signs of acute distress nontoxic-appearing. Workup in the ER remarkable for leukocytosis of 24.2 with a left shift. Hemoglobin 8.6. Patient is hyponatremic at 113. Potassium 5.0, chloride 78. BUN of 20 with a creatinine 1.03 GFR 52. Hyperglycemic at 322 patient is a diabetic. Lactic 1.6. Hypomagnesemia 1.2 this was supplemented. TSH 2.82. CXR concerning of right sided airspace opacities versus pulmonary vascular congestion. These are believed to be pneumonia as BNP is 406 and leukocytosis. Urinalysis concerning for infection with occasional bacteria, many WBC clumps and greater than 182 WBCs. There is 4+ glucose noted as patient is diabetic. Viral swabs negative. CT abdomen pelvis completed to rule out complicating factors of UTI. No acute findings of the abdomen pelvis noted. Pneumonia confirmed in lower lung bases. Patient was started on IV Bactrim as she has numerous antibiotic allergies and is refusing any other antibiotic at this time. Blood cultures ordered but not collected. Order was noticed after antibiotic initiation per RN. Given pneumonia, UTI and hyponatremia admission was considered and discussed with Dr. Sanchez who accepts admission. He is requesting ICU admission for hyponatremia. ICU admission discussed with Dr. Nita Arellano, who accepts admission but states patient will hold in the ER as ICU is currently full. Infectious disease and nephrology on consult. Patient started on maintenance fluids at 50 cc/h. To avoid fluid overload patient given 500 mL IV fluid bolus along with Tylenol for symptom control in the ER. Patient agreeable for admission. Patient admitted in stable condition. Case discussed with ED attending, Dr. Ruiz. Undiagnosed new problem with uncertain prognosis? @ -No Drug Therapy requiring intensive monitoring for toxicity (Heparin, Nitro, Insulin, Cardizem)? @ -No Were any procedures done? @ -No Diagnosis/symptom? @ -Hyponatremia/ pneumonia/ UTI/ hypomagnesemia/ leukocytosis Acute, or Chronic, or Acute on Chronic? @ -Acute Uncomplicated (without systemic symptoms) or Complicated (systemic symptoms)? @ -Complicated Side effects of treatment? @ -No Exacerbation, Progression, or Severe Exacerbation? @ -No Poses a threat to life or bodily function? How? (Chest pain, USA, OH, pneumonia, PE, COPD, DKA, ARF, appy, cholecystitis, CVA, Diverticulitis, Homicidal, Suicidal, threat to staff... and all critical care pts) @ -Yes - Lab Data Result diagrams: 06/20/24 19:55 06/20/24 19:55 Lab Results 06/20/24 06/20/24 06/20/24 Range/Units 19:30 19:35 19:35 WBC (3.8-10.6) k/uL RBC (3.80-5.40) m/uL Hgb (11.4-16.0) gm/dL Hct (34.0-46.0) % MCV (80.0-100.0) fL MCH (25.0-35.0) pg MCHC (31.0-37.0) g/dL RDW (11.5-15.5) % Plt Count (150-450) k/uL MPV Neutrophils % % Lymphocytes % % Monocytes % % Eosinophils % % Basophils % % Neutrophils # (1.3-7.7) k/uL Lymphocytes # (1.0-4.8) k/uL Monocytes # (0-1.0) k/uL Eosinophils # (0-0.7) k/uL Basophils # (0-0.2) k/uL Hypochromasia Sodium (137-145) mmol/L Potassium (3.5-5.1) mmol/L Chloride (98-107) mmol/L Carbon Dioxide (22-30) mmol/L Anion Gap mmol/L BUN (7-17) mg/dL Creatinine (0.52-1.04) mg/dL Est GFR (CKD-EPI)AfAm (>60 ml/min/1.73 sqM) Est GFR (CKD-EPI)NonAf (>60 ml/min/1.73 sqM) Glucose (74-99) mg/dL Plasma Lactic Acid Jace (0.7-2.0) mmol/L Calcium (8.4-10.2) mg/dL Magnesium (1.6-2.3) mg/dL Total Bilirubin (0.2-1.3) mg/dL AST (14-36) U/L ALT (4-34) U/L Alkaline Phosphatase (38-126) U/L NT-Pro-B Natriuret Pep 406 pg/mL Total Protein (6.3-8.2) g/dL Albumin (3.5-5.0) g/dL TSH (0.465-4.680) mIU/L Urine Color Colorless Urine Appearance Turbid H (Clear) Urine pH 6.0 (5.0-8.0) Ur Specific Benson 1.014 (1.001-1.035) Urine Protein Trace H (Negative) Urine Glucose (UA) 4+ H (Negative) Urine Ketones Negative (Negative) Urine Blood Moderate H (Negative) Urine Nitrite Negative (Negative) Urine Bilirubin Negative (Negative) Urine Urobilinogen <2.0 (<2.0) mg/dL Ur Leukocyte Esterase Large H (Negative) Urine RBC 118 H (0-5) /hpf Urine WBC >182 H (0-5) /hpf Urine WBC Clumps Many H (None) /hpf Urine Bacteria Occasional H (None) /hpf Urine Yeast (Budding) Many H (None) /hpf Influenza Type A (PCR) Not Detected (Not Detectd) Influenza Type B (PCR) Not Detected (Not Detectd) RSV (PCR) Not Detected (Not Detectd) SARS-CoV-2 (PCR) Not Detected (Not Detectd) 06/20/24 06/20/24 06/20/24 Range/Units 19:55 19:55 21:35 WBC 24.2 H (3.8-10.6) k/uL RBC 3.36 L (3.80-5.40) m/uL Hgb 8.6 L (11.4-16.0) gm/dL Hct 27.9 L (34.0-46.0) % MCV 83.2 (80.0-100.0) fL MCH 25.4 (25.0-35.0) pg MCHC 30.6 L (31.0-37.0) g/dL RDW 14.8 (11.5-15.5) % Plt Count 585 H (150-450) k/uL MPV 7.5 Neutrophils % 91 % Lymphocytes % 4 % Monocytes % 4 % Eosinophils % 0 % Basophils % 0 % Neutrophils # 21.9 H (1.3-7.7) k/uL Lymphocytes # 1.0 (1.0-4.8) k/uL Monocytes # 1.0 (0-1.0) k/uL Eosinophils # 0.0 (0-0.7) k/uL Basophils # 0.1 (0-0.2) k/uL Hypochromasia Slight Sodium 113 L* (137-145) mmol/L Potassium 5.0 (3.5-5.1) mmol/L Chloride 78 L (98-107) mmol/L Carbon Dioxide 27 (22-30) mmol/L Anion Gap 8 mmol/L BUN 20 H (7-17) mg/dL Creatinine 1.03 (0.52-1.04) mg/dL Est GFR (CKD-EPI)AfAm 60 (>60 ml/min/1.73 sqM) Est GFR (CKD-EPI)NonAf 52 (>60 ml/min/1.73 sqM) Glucose 322 H (74-99) mg/dL Plasma Lactic Acid Jace 1.6 (0.7-2.0) mmol/L Calcium 8.9 (8.4-10.2) mg/dL Magnesium 1.2 L (1.6-2.3) mg/dL Total Bilirubin 0.5 (0.2-1.3) mg/dL AST 39 H (14-36) U/L ALT 29 (4-34) U/L Alkaline Phosphatase 203 H (38-126) U/L NT-Pro-B Natriuret Pep pg/mL Total Protein 6.6 (6.3-8.2) g/dL Albumin 3.3 L (3.5-5.0) g/dL TSH 2.820 (0.465-4.680) mIU/L Urine Color Urine Appearance (Clear) Urine pH (5.0-8.0) Ur Specific Benson (1.001-1.035) Urine Protein (Negative) Urine Glucose (UA) (Negative) Urine Ketones (Negative) Urine Blood (Negative) Urine Nitrite (Negative) Urine Bilirubin (Negative) Urine Urobilinogen (<2.0) mg/dL Ur Leukocyte Esterase (Negative) Urine RBC (0-5) /hpf Urine WBC (0-5) /hpf Urine WBC Clumps (None) /hpf Urine Bacteria (None) /hpf Urine Yeast (Budding) (None) /hpf Influenza Type A (PCR) (Not Detectd) Influenza Type B (PCR) (Not Detectd) RSV (PCR) (Not Detectd) SARS-CoV-2 (PCR) (Not Detectd) - Radiology Data Radiology results: report reviewed, image reviewed Disposition Clinical Impression: Hyponatremia, Hypomagnesemia, Pneumonia, UTI (urinary tract infection), Neutrophilic leukocytosis Disposition: ADMITTED IP TO THIS HOSP Condition: Stable Time of Disposition: 21:58
[2024-06-20] MEDS: ACETAMINOPHEN TAB 325 MG TAB PO STA (19:24)
[2024-06-20] MEDS: SODIUM CHLORIDE 0.9% 500 ML 500 ML IV ONE (19:31)
[2024-06-20 20:16] LABS: Appearance,Urine Turbid (Clear); Bacteria,Urine Occasional /hpf; Bilirubin,Urine Negative (Negative); Blood,Urine Moderate (Negative); Budding Yeast,Urine Many /hpf; Color,Urine Colorless; Glucose,Urine (UA) 4+ (Negative); Ketones,Urine Negative (Negative); Leukocyte Esterase,Urine Large (Negative); Nitrite,Urine Negative (Negative); Protein,Urine Trace (Negative); RBC,Urine 118 /hpf (0-5); Specific Gravity,Urine 1.014 (1.001-1.035); Urobilinogen,Urine <2.0 mg/dL (<2.0); WBC,Urine >182 /hpf (0-5)
--- NOTE | 2024-06-20 20:24 | XR ---
EXAMINATION TYPE: XR chest 2V DATE OF EXAM: 06/20/2024 8:07 PM COMPARISON: Chest radiograph dated 08/05/2022. CLINICAL INDICATION: Female, 78 years old with history of weakness; H TECHNIQUE: XR chest 2V Frontal and lateral views of the chest. FINDINGS: Lungs/Pleura: Patchy infiltrative opacities, most pronounced in the right lung. No sizable pleural ef fusion. No pneumothorax. Pulmonary vascularity: Pulmonary vascular congestion. Heart/mediastinum: Cardiomegaly. Musculoskeletal: No acute osseous pathology. Other findings: None IMPRESSION: Cardiomegaly and patchy interstitial and airspace opacities, most pronounced in the right lung. Findi ngs could reflect pulmonary vascular congestion and/or multifocal pneumonia. Recommend clinical corre lation. [facility], , 06/20/2024 8:21 PM
[2024-06-20 20:33] LABS: ALT 29 U/L (4-34); AST 39 U/L (14-36); African American GFR (CKD) 60 (>60 ml/min/1.73 sqM); Albumin 3.3 g/dL (3.5-5.0); Alkaline Phosphatase 203 U/L (38-126); Anion Gap 8 mmol/L; Blood Urea Nitrogen 20 mg/dL (7-17); Calcium 8.9 mg/dL (8.4-10.2); Carbon Dioxide 27 mmol/L (22-30); Chloride 78 mmol/L (98-107); Glucose 322 mg/dL (74-99); Magnesium 1.2 mg/dL (1.6-2.3); Non-African American GFR(CKD) 52 (>60 ml/min/1.73 sqM); Total Bilirubin 0.5 mg/dL (0.2-1.3); Total Protein 6.6 g/dL (6.3-8.2)
[2024-06-20 20:36] LABS: Basophils # (A) 0.1 k/uL (0-0.2); Basophils % (A) 0 %; Eosinophils % (A) 0 %; HCT 27.9 % (34.0-46.0); HGB 8.6 gm/dL (11.4-16.0); Hypochromasia Slight; Lymphocytes % (A) 4 %; MCH 25.4 pg (25.0-35.0); MCHC 30.6 g/dL (31.0-37.0); MCV 83.2 fL (80.0-100.0); Mean Platelet Volume 7.5; Monocytes % (A) 4 %; Neutrophils # (A) 21.9 k/uL (1.3-7.7); Neutrophils % (A) 91 %; Platelet Count 585 k/uL (150-450); RBC 3.36 m/uL (3.80-5.40); RDW 14.8 % (11.5-15.5); WBC 24.2 k/uL (3.8-10.6)
[2024-06-20 20:36] LABS: Influenza A Not Detected (Not Detectd); Influenza B Not Detected (Not Detectd); RSV Not Detected (Not Detectd)
[2024-06-20 20:49] LABS: Sodium 113 mmol/L (137-145)
--- NOTE | 2024-06-20 21:24 | CT ---
EXAMINATION TYPE: CT abdomen pelvis wo con DATE OF EXAM: 06/20/2024 9:13 PM COMPARISON: None. CLINICAL INDICATION: Female, 78 years old with history of UTI; TECHNIQUE: Axial CT abdomen pelvis wo con;Sagittal and coronal reformats were created on a separate workstation. FINDINGS: LOWER CHEST: Patchy bilateral nodular opacities suspicious for multifocal pneumonia. ABDOMEN LIVER: Mild nodularity of the external hepatic surface contour suggesting cirrhotic morphology. GALLBLADDER AND BILE DUCTS: The gallbladder is surgically absent. PANCREAS: Unremarkable. SPLEEN: Unremarkable. ADRENAL GLANDS: Unremarkable. KIDNEYS AND URETERS: No evidence of hydronephrosis or renal calculus. The ureters are unremarkable. PELVIS BLADDER: No evidence for wall thickening or mass given limitations of exam. REPRODUCTIVE: The uterus is surgically absent. ABDOMEN & PELVIS STOMACH AND BOWEL: Stomach and duodenum are unremarkable. No evidence of bowel obstruction. Appendix unremarkable. PERITONEUM/RETROPERITONEUM: No evidence of pneumoperitoneum or free fluid. VASCULATURE: No evidence of aortic aneurysm. MUSCULOSKELETAL: No acute osseous abnormalities LYMPH NODES: No gross evidence for lymphadenopathy. SOFT TISSUE/ABDOMINAL WALL: Unremarkable IMPRESSION: 1. Patchy nodular opacities in the partially visualized lower lungs compatible with multifocal pneum onia. 2. Fluid distention of the distal thoracic esophagus just an reflux. 3. No acute abnormality in the abdomen/pelvis. 4. Additional nonacute findings as above. [facility], Workstation: [id number], 06/20/2024 9:22 PM
[2024-06-20] MEDS ORDERED: NALOXONE 0.4 MG/ML 1 ML VIAL IV PRN (22:08)
[2024-06-20] MEDS: SULFAMETHOX TMP IVPB SCH (22:18)
[2024-06-20] MEDS: WATER IVPB SCH (22:18)
[2024-06-20] MEDS: DEXTROSE 5% IVPB SCH (22:18)
[2024-06-20] MEDS: SODIUM CHLORIDE 0.9% 1,000 ML IV STA (22:34)
[2024-06-21] MEDS: MAGNESIUM SULFATE-D5W PMX 1 GM in DEXTROSE/WATER 1 100ML.BAG IVPB SCH ×2 (00:16→08:27)
--- NOTE | 2024-06-21 03:30 | P.CNPUL ---
History of Present Illness Consult date: 06/21/24 Requesting physician: Deedee Garcia Reason for consult: other (ICU management; hyponatremia) Chief complaint: Generalized weakness History of present illness: Patient is a 78-year-old female with past medical history significant for hypertension, hyperlipidemia, diabetes mellitus, heart failure, Zenker's diverticulum, and previous hospitalizations for hyponatremia. Patient presents to the emergency department last night with a chief complaint of generalized weakness. Of note, previously having episodes of burning with urination and urinary frequency. Outpatient urine culture positive for Proteus Mirabilis, and patient was started on Bactrim on Friday by her PCP Dr. Sanchez. Workup in the emergency department significant for severe hyponatremia. Sodium was 113. Nephrology was consulted. Further workup including a chest x-ray demonstrated patchy infiltrate of opacities, more pronounced on the right lung menon. Abdomen/pelvis CT redemonstrates patchy nodular opacities partially visualized in the lower lungs, concerning for pneumonia. Fluid distention of the distal thoracic esophagus consistent with reflux. No acute abnormality in the abdomen/pelvis. CBC: WBC count 24.2, hemoglobin 0.6, platelets 585. CMP: Sodium 113, potassium 5, chloride 78, serum bicarb 27, BUN 20, creatinine 1.03, glucose 322. Lactic 1.6. Magnesium 1.2. LFTs unremarkable. NT proBNP 406. TSH 2.8. Urinalysis positive for pyuria and bacteriuria. Viral screen negative for influenza, RSV, COVID. Patient currently being seen in the emergency department room 28. She is awake and alert and oriented x 3. On room air. Generally weak and requires assistance to sit up in bed. Denies any shortness of breath, cough, sputum production, hemoptysis, chest pain. Denies fevers or chills. Denies any sick contacts. She states that her sodium is always low. She has been taking Bactrim for her UTI and has increased her water intake. Appetite has been good. Denies any nausea or vomiting or diarrhea. Endorses some lower extremity swelling. Does take Lasix on an outpatient basis, 60 mg twice a day. No confusion, headaches, seizures. Normal saline infusing at 50 mL/h. Review of Systems Constitutional: Reports fatigue, Reports weakness, Denies chills, Denies fever, Denies poor appetite, Denies weight gain, Denies weight loss Ears, nose, mouth and throat: Reports dysphagia, Denies headache, Denies nasal congestion, Denies nasal discharge, Denies post-nasal drip, Denies sinus pain, Denies sinus pressure, Denies sore throat Respiratory: Denies cough, Denies cough with sputum, Denies hemoptysis, Denies pain on inspiration, Denies wheezing Gastrointestinal: Denies abdominal pain, Denies change in bowel habits, Denies diarrhea, Denies nausea, Denies vomiting Genitourinary: Reports dysuria, Reports urinary frequency, Denies flank pain, D enies hematuria, Denies incomplete emptying Musculoskeletal: Reports muscle weakness (Nonfocal), Denies limitation of motion Integumentary: Denies rash Neurological: Reports weakness, Denies confusion, Denies head injury, Denies headaches, Denies memory loss, Denies numbness, Denies paralysis, Denies paresthesias, Denies seizures, Denies syncope, Denies visual changes Psychiatric: Denies anxiety, Denies depression Past Medical History Past Medical History: Asthma, Diabetes Mellitus, GERD/Reflux, Hyperlipidemia, Hypertension Additional Past Medical History / Comment(s): Zenker's diverticulum, hemrroids History of Any Multi-Drug Resistant Organisms: None Reported Past Surgical History: Cholecystectomy, Hysterectomy, Orthopedic Surgery, Tonsillectomy, Tubal Ligation Additional Past Surgical History / Comment(s): right knee. right cataract. Past Anesthesia/Blood Transfusion Reactions: No Reported Reaction Past Psychological History: Anxiety Smoking Status: Never smoker Past Alcohol Use History: None Reported Past Drug Use History: None Reported - Past Family History Mother Family Medical History: Cancer Additional Family Medical History / Comment(s): . Father Family Medical History: Cancer Additional Family Medical History / Comment(s): prostate Medications and Allergies Home Medications Medication Instructions Recorded Confirmed Type Pioglitazone [Actos] 15 mg PO DAILY@0900 03/11/16 06/20/24 History atenoloL [Tenormin] 50 mg PO BID@0900,209903/11/16 06/20/24 History metFORMIN HCL [Glucophage] 1,000 mg PO BID@1400,2100 03/11/16 06/20/24 History Insulin Glargine,Hum.rec.anlog 7 - 18 units SQ HS 10/24/16 06/20/24 History [Lantus Solostar Pen] ALPRAZolam [Xanax] 0.125 mg PO BID@0900,2100 08/05/22 06/20/24 History Acetaminophen Tab [Tylenol] 500 mg PO TID@0900,1400,209912/11/23 06/20/24 History Losartan Potassium 100 mg PO DAILY@0912/11/23 06/20/24 History Magnesium Oxide [Mag-Ox] 400 mg PO DAILY@1400 12/11/23 06/20/24 History amLODIPine [Norvasc] 5 mg PO DAILY@89912/11/23 06/20/24 History cloNIDine HCL [Catapres] 0.2 mg PO HS@209912/11/23 06/20/24 History Acetaminophen Tab [Tylenol] 650 mg PO Q4HR PRN #0 tab 12/16/23 06/20/24 Rx Levothyroxine Sodium [Synthroid] 25 mcg PO DAILY@0630 #30 tab 12/16/23 06/20/24 Rx Furosemide [Lasix] 20 mg PO BID@0900,1600 06/20/24 06/20/24 History Furosemide [Lasix] 40 mg PO BID@0900,1600 06/20/24 06/20/24 History Sulfamethox-Tmp 200-40Mg/5Ml 5 ml PO BID@0700,1900 06/20/24 06/20/24 History [Bactrim Suspension] Allergies Allergy/AdvReac Type Severity Reaction Status Date / Time cephalexin Allergy Unknown Verified 06/20/24 19:44 ciprofloxacin [From Cipro] Allergy Anaphylaxis Verified 06/20/24 19:44 codeine Allergy Chest Pain Verified 06/20/24 19:44 diclofenac Allergy Anaphylaxis Verified 06/20/24 19:44 difluprednate [From Durezol] Allergy Anaphylaxis Verified 06/20/24 19:44 dog dander Allergy Unknown Verified 06/20/24 19:44 doxycycline [From Vibramycin] Allergy Unknown Verified 06/20/24 19:44 epinephrine Allergy Unknown Verified 06/20/24 19:44 erythromycin base Allergy Unknown Verified 06/20/24 19:44 Fish Containing Products Allergy Anaphylaxis Verified 06/20/24 19:44 iodine Allergy Unknown Verified 06/20/24 21:42 latex Allergy Anaphylaxis Verified 06/20/24 19:44 metronidazole [From Flagyl] Allergy Anaphylaxis Verified 06/20/24 19:44 mold Allergy Unknown Verified 06/20/24 19:44 nepafenac Allergy Anaphylaxis Verified 06/20/24 19:44 ofloxacin [From Floxin] Allergy Anaphylaxis Verified 06/20/24 19:44 Penicillins Allergy Unknown Verified 06/20/24 19:44 Childhood shellfish derived [Shellfish] Allergy Anaphylaxis Verified 06/20/24 19:44 strawberry Allergy Burning & Verified 06/20/24 19:44 swelling Thiazides Allergy Unknown Verified 06/20/24 19:44 tomato AdvReac Mild Unknown Verified 06/20/24 19:44 Childhood bandages Allergy Unknown Uncoded 06/20/24 19:44 dust Allergy Unknown Uncoded 06/20/24 19:44 seafood Allergy Anaphylaxis Uncoded 06/20/24 19:44 Physical Exam Vitals: Vital Signs Temp Pulse Resp BP Pulse Ox 06/21/24 01:53 98 F 62 18 142/58 06/21/24 00:28 60 20 141/65 06/20/24 21:43 97.5 F L 65 18 160/65 96 06/20/24 19:34 98.7 F 06/20/24 18:56 67 18 141/70 96 Intake and Output 06/20/24 06/20/24 06/21/24 14:59 22:59 06:59 Other: Weight 113.398 kg GENERAL EXAM: Alert, morbidly obese 78-year-old white female, comfortable in no apparent distress. HEAD: Normocephalic and atraumatic EYES: Normal reaction of pupils, equal size. NOSE: Clear with pink turbinates. THROAT: No erythema or exudates. NECK: No masses, no JVD. CHEST: No chest wall deformity. LUNGS: Equal air entry with right lung inspiratory crackles. On room air. No conversational dyspnea or accessory muscle use.. CVS: S1 and S2 normal with no audible murmur, regular rhythm. No extra heart sounds ABDOMEN: No hepatosplenomegaly, active bowel sounds, no guarding or rigidity. SPINE: No scoliosis or deformity SKIN: No rashes CENTRAL NERVOUS SYSTEM: No focal deficits, tone is normal in all 4 extremities. EXTREMITIES: There is bilateral lower extremity nonpitting edema. No clubbing or cyanosis. Peripheral pulses are intact. Results - Laboratory Findings CBC and BMP: 06/21/24 07:11 06/21/24 09:15 Abnormal lab findings: Abnormal Labs 06/20/24 06/20/24 06/20/24 19:35 19:55 19:55 WBC 24.2 H RBC 3.36 L Hgb 8.6 L Hct 27.9 L MCHC 30.6 L Plt Count 585 H Neutrophils # 21.9 H Sodium 113 L* Chloride 78 L BUN 20 H Glucose 322 H Magnesium 1.2 L AST 39 H Alkaline Phosphatase 203 H Albumin 3.3 L Urine Appearance Turbid H Urine Protein Trace H Urine Glucose (UA) 4+ H Urine Blood Moderate H Ur Leukocyte Esterase Large H Urine RBC 118 H Urine WBC >182 H Urine WBC Clumps Many H Urine Bacteria Occasional H Urine Yeast (Budding) Many H - Diagnostic Findings Chest x-ray: image reviewed Assessment and Plan Assessment: Severe hyponatremia, sodium 113 Generalized weakness, secondary to above History of heart failure with preserved ejection fraction Patchy multifocal infiltrates/opacities, more pronounced on the right lung menno, concerning for multifocal pneumonia. Acute leukocytosis Recent outpatient treatment for UTI with Bactrim Multiple medication allergies Hypomagnesemia, replaced Anemia, monitor for blood loss Hypertension History of hyperlipidemia Diabetes mellitus type 2, with hyperglycemia History of dysphagia with Zenker's diverticulum History of asthma, stable and inactive Morbid obesity, with a BMI of 41.6 kg/m Plan: Patient's medications, labs, imaging reviewed Recheck serum sodium Check urine sodium, urine osmolality, serum osmolality Nephrology is consulted for management of hyponatremia Patient has been multiple antibiotic allergies; infectious disease is consulted Viral 4 Plex negative for influenza A/B, RSV, COVID Check procalcitonin level Repeat chest x-ray in the morning Consult speech for swallow evaluation Patient to be monitored in the ICU once bed available I have personally seen and examined the patient, performed the documentation and the assessment and plan as written. Number of minutes spent on the visit:20 This is a joint evaluation that was done along with the nurse practitioner. This evaluation was done and 31 minutes. The patient is 78 with chronic dysphagia and Zenker's diverticulum. She is presenting to the hospital because of generalized weakness and we were involved in the case because of the right lung pneumonia and hyponatremia. The patient sodium level at time of admission was 113. She was started on IV fluids and later on the patient was placed on hypertonic saline and most recent sodium level is at 114. Nephrology's been involved in the case. Serum cortisol 24. TSH is at 3.1. LFTs are normal. Renal function is normal with a BUN of 18 and a creatinine of 0.7. Chloride levels at 80 and serum bicarb is at 28. The white cell count elevated at 22.6. There is a concern for a urine tract infection. There is also concern for right lower lobe pneumonia. The patient is currently on room air oxygen. She is denying having any significant respiratory distress. Nevertheless, she has chronic issues with dysphagia. She has multiple antibiotic allergies and based on that, we opted to put the patient on a combination of IV aztreonam and clindamycin. Will continue monitoring her progress. Treat the hyponatremia. Fluid restriction. Nephrology regarding hyponatremia. Hold Lasix for now. Repeat chest x-ray with the next 24 hours. Will continue to follow. Time with Patient: Greater than 30
[2024-06-21 03:56] LABS: African American GFR (CKD) 65 (>60 ml/min/1.73 sqM); Anion Gap 10 mmol/L; Blood Urea Nitrogen 18 mg/dL (7-17); Calcium 9.1 mg/dL (8.4-10.2); Carbon Dioxide 27 mmol/L (22-30); Chloride 78 mmol/L (98-107); Glucose 231 mg/dL (74-99); Non-African American GFR(CKD) 56 (>60 ml/min/1.73 sqM); Potassium 4.8 mmol/L (3.5-5.1)
[2024-06-21 04:08] LABS: Sodium 115 mmol/L (137-145)
[2024-06-21 07:31] LABS: Basophils # (A) 0.1 k/uL (0-0.2); Basophils % (A) 0 %; Eosinophils % (A) 0 %; HCT 27.5 % (34.0-46.0); HGB 8.5 gm/dL (11.4-16.0); Hypochromasia Slight; Lymphocytes # (A) 2.1 k/uL (1.0-4.8); Lymphocytes % (A) 10 %; MCH 25.3 pg (25.0-35.0); MCHC 30.9 g/dL (31.0-37.0); MCV 81.8 fL (80.0-100.0); Mean Platelet Volume 7.5; Monocytes # (A) 0.8 k/uL (0-1.0); Monocytes % (A) 4 %; Neutrophils # (A) 19.4 k/uL (1.3-7.7); Neutrophils % (A) 86 %; Platelet Count 589 k/uL (150-450); RBC 3.37 m/uL (3.80-5.40); RDW 14.9 % (11.5-15.5); WBC 22.6 k/uL (3.8-10.6)
[2024-06-21 08:09] LABS: ALT 27 U/L (4-34); AST 36 U/L (14-36); African American GFR (CKD) 65 (>60 ml/min/1.73 sqM); Albumin 3.3 g/dL (3.5-5.0); Alkaline Phosphatase 214 U/L (38-126); Anion Gap 7 mmol/L; Blood Urea Nitrogen 18 mg/dL (7-17); Calcium 9.2 mg/dL (8.4-10.2); Carbon Dioxide 28 mmol/L (22-30); Chloride 80 mmol/L (98-107); Glucose 188 mg/dL (74-99); Non-African American GFR(CKD) 56 (>60 ml/min/1.73 sqM); Potassium 4.9 mmol/L (3.5-5.1); Total Bilirubin 0.5 mg/dL (0.2-1.3); Total Protein 6.7 g/dL (6.3-8.2)
[2024-06-21 08:17] LABS: Sodium 115 mmol/L (137-145)
[2024-06-21] MEDS: INSULIN LISPRO (HumaLOG) 100 UNIT/ML 10 mL VL SQ SCH (08:28)
[2024-06-21] MEDS: HEPARIN SODIUM,PORCINE 5,000 UNIT/ML 1 ML VIAL SQ SCH (08:28)
--- NOTE | 2024-06-21 09:22 | P.NPCON ---
History of Present Illness - Reason for Consult hyponatremia - History of Present Illness Reason for consultation: Hyponatremia History of present is: Patient is a 78-year-old female seen in renal consultation for hyponatremia. Patient was seen and examined in the emergency room. Sodium level was 113 on admission June 20, 2024 at 7:55 PM. Patient was started on IV fluids with normal saline at 50 cc an hour and sodium level improved to 115 at 3 AM on June 21 and remained stable at 115 this morning at 7:11 AM. Patient states she has been having dysuria and was recently started on Bactrim last Friday. She continued to feel weak and came to the hospital and is currently on IV antibiotics. Patient does have history of diabetes. She denies personal history of malignancy. Patient says she has been drinking about 30 to 40 ounces of water daily. She denies alcohol use. She will sip on Pepsi to swallow meds but otherwise does not really drink any other fluids. She does take Lasix 60 mg twice daily at home. Hemodynamically stable. Blood glucose 188 this morning. Denies chest pain or shortness of breath. No vomiting or diarrhea. Does admit to nausea. Vital signs are stable. General: No acute distress. HEENT: Head exam is unremarkable. LUNGS: No audible rhonchi or wheezes. HEART: Rate and Rhythm are regular. ABDOMEN: Nontender. EXTREMITITES: Trace edema. Past Medical History Past Medical History: Asthma, Diabetes Mellitus, GERD/Reflux, Hyperlipidemia, Hypertension Additional Past Medical History / Comment(s): Zenker's diverticulum, hemrroids History of Any Multi-Drug Resistant Organisms: None Reported Past Surgical History: Cholecystectomy, Hysterectomy, Orthopedic Surgery, Tonsillectomy, Tubal Ligation Additional Past Surgical History / Comment(s): right knee. right cataract. Past Anesthesia/Blood Transfusion Reactions: No Reported Reaction Past Psychological History: Anxiety Smoking Status: Never smoker Past Alcohol Use History: None Reported Past Drug Use History: None Reported - Past Family History Mother Family Medical History: Cancer Additional Family Medical History / Comment(s): . Father Family Medical History: Cancer Additional Family Medical History / Comment(s): prostate Medications and Allergies Home Medications Medication Instructions Recorded Confirmed Type Pioglitazone [Actos] 15 mg PO DAILY@0900 03/11/16 06/20/24 History atenoloL [Tenormin] 50 mg PO BID@0900,2100 03/11/16 06/20/24 History metFORMIN HCL [Glucophage] 1,000 mg PO BID@1400,209903/11/16 06/20/24 History Insulin Glargine,Hum.rec.anlog 7 - 18 units SQ HS 10/24/16 06/20/24 History [Lantus Solostar Pen] ALPRAZolam [Xanax] 0.125 mg PO BID@0900,209908/05/22 06/20/24 History Acetaminophen Tab [Tylenol] 500 mg PO TID@0900,1400,209912/11/23 06/20/24 History Losartan Potassium 100 mg PO DAILY@89912/11/23 06/20/24 History Magnesium Oxide [Mag-Ox] 400 mg PO DAILY@1400 12/11/23 06/20/24 History amLODIPine [Norvasc] 5 mg PO DAILY@89912/11/23 06/20/24 History cloNIDine HCL [Catapres] 0.2 mg PO HS@209912/11/23 06/20/24 History Acetaminophen Tab [Tylenol] 650 mg PO Q4HR PRN #0 tab 12/16/23 06/20/24 Rx Levothyroxine Sodium [Synthroid] 25 mcg PO DAILY@0630 #30 tab 12/16/23 06/20/24 Rx Furosemide [Lasix] 20 mg PO BID@0900,1600 06/20/24 06/20/24 History Furosemide [Lasix] 40 mg PO BID@0900,1600 06/20/24 06/20/24 History Sulfamethox-Tmp 200-40Mg/5Ml 5 ml PO BID@0700,1900 06/20/24 06/20/24 History [Bactrim Suspension] Allergies Allergy/AdvReac Type Severity Reaction Status Date / Time cephalexin Allergy Unknown Verified 06/20/24 19:44 ciprofloxacin [From Cipro] Allergy Anaphylaxis Verified 06/20/24 19:44 codeine Allergy Chest Pain Verified 06/20/24 19:44 diclofenac Allergy Anaphylaxis Verified 06/20/24 19:44 difluprednate [From Durezol] Allergy Anaphylaxis Verified 06/20/24 19:44 dog dander Allergy Unknown Verified 06/20/24 19:44 doxycycline [From Vibramycin] Allergy Unknown Verified 06/20/24 19:44 epinephrine Allergy Unknown Verified 06/20/24 19:44 erythromycin base Allergy Unknown Verified 06/20/24 19:44 Fish Containing Products Allergy Anaphylaxis Verified 06/20/24 19:44 iodine Allergy Unknown Verified 06/20/24 21:42 latex Allergy Anaphylaxis Verified 06/20/24 19:44 metronidazole [From Flagyl] Allergy Anaphylaxis Verified 06/20/24 19:44 mold Allergy Unknown Verified 06/20/24 19:44 nepafenac Allergy Anaphylaxis Verified 06/20/24 19:44 ofloxacin [From Floxin] Allergy Anaphylaxis Verified 06/20/24 19:44 Penicillins Allergy Unknown Verified 06/20/24 19:44 Childhood shellfish derived [Shellfish] Allergy Anaphylaxis Verified 06/20/24 19:44 strawberry Allergy Burning & Verified 06/20/24 19:44 swelling Thiazides Allergy Unknown Verified 06/20/24 19:44 tomato AdvReac Mild Unknown Verified 06/20/24 19:44 Childhood bandages Allergy Unknown Uncoded 06/20/24 19:44 dust Allergy Unknown Uncoded 06/20/24 19:44 seafood Allergy Anaphylaxis Uncoded 06/20/24 19:44 Physical Exam Vitals: Vital Signs Temp Pulse Resp BP Pulse Ox 06/21/24 09:00 98 F 71 16 142/68 97 06/21/24 03:00 71 18 143/65 06/21/24 01:53 98 F 62 18 142/58 06/21/24 00:28 60 20 141/65 06/20/24 21:43 97.5 F L 65 18 160/65 96 06/20/24 19:34 98.7 F 06/20/24 18:56 67 18 141/70 96 Intake and Output 06/20/24 06/21/24 06/21/24 22:59 06:59 14:59 Other: Weight 113.398 kg Results - Lab Results Most recent lab results Calcium 9.2 mg/dL (8.4-10.2) 06/21/24 07:11 Magnesium 1.2 mg/dL (1.6-2.3) L 06/20/24 19:55 06/21/24 07:11 06/21/24 07:11 Assessment and Plan Plan: Assessment: 1. 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 Sodium level 113 on admission and up to 115 this morning. No further improvement with normal saline. TSH normal. 2. UTI on antibiotics. 3. Benign hypertension. Stable. 4. Diabetes mellitus. 5. Hypomagnesemia from poor intake. Replaced. Plan: Off normal saline as of this morning. Start 3% saline at 25 cc an hour. Check sodium level every 2 hours. 3% will be stopped once sodium level up to 118-119. Follow-up serum and urine osmolality and urine sodium level. Encouraged oral intake. Thank you for the consultation. I will continue to follow the patient with you during her hospital stay.
[2024-06-21] MEDS: AZTREONAM 1 GM in SODIUM CHLORIDE 0.9% 50 ML IVPB SCH (09:41)
[2024-06-21] MEDS: LEVOTHYROXINE 25 MCG TAB PO SCH (09:44)
[2024-06-21] MEDS: PIOGLITAZONE 15 MG TAB PO SCH (09:44)
[2024-06-21] MEDS: ALPRAZolam 0.25 MG TAB PO SCH (09:45)
[2024-06-21] MEDS: LOSARTAN 50 MG TAB PO SCH (09:45)
[2024-06-21] MEDS: atenoloL 50 MG TAB PO SCH (09:45)
[2024-06-21] MEDS: amLODIPine 5 MG TAB PO SCH (09:45)
[2024-06-21] MEDS: PANTOPRAZOLE 40 MG/10 ML VIAL IVP SCH (09:45)
[2024-06-21] MEDS: CLINDAMYCIN 600 MG in DEXTROSE 5% IN WATER 50 ML IVPB SCH (10:45)
[2024-06-21] MEDS: SODIUM CHLORIDE 3%(HYPERTONIC) 500 ML IV ONE (10:45)
[2024-06-21 12:15] LABS: Glucose,Whole Blood 292 mg/dL (70-110)
[2024-06-21] MEDS: MAGNESIUM OXIDE 400 MG TAB PO SCH (13:34)
[2024-06-21] MEDS: metFORMIN 500 MG TAB PO SCH (13:34)
[2024-06-21] MEDS: ACETAMINOPHEN TAB 325 MG TAB PO PRN (14:09)
[2024-06-21] MEDS: FUROSEMIDE 10 MG/ML 4 ML VIAL IV STA (15:33)
[2024-06-21 16:54] LABS: Glucose,Whole Blood 210 mg/dL (70-110)
--- NOTE | 2024-06-21 18:39 | P.HPIM ---
History of Present Illness H&P Date: 06/21/24 Chief Complaint: Severe symptomatic hyponatremia HISTORY OF PRESENT ILLNESS: This is a 78 year old female with a previous medical history significant for hypertension and hypertensive cardiovascular disease, hyperlipidemia, diabetes mellitus type 2, and diabetic polyneuropathy, GERD with duodenal ulcer, and obesity with obstructive sleep apnea, and obesity hypov entilation syndrome, chronic diastolic heart filure, patient was last hospitalized at [facility] about a year ago with accelerated hypertension and hypervolemic hyponatremia and was sen by cardiology and nephrology, patient was recently to be treated as an outpatient for urinary tract infection, but she has numerous allergies/limited antibiotic use, she stated that she only can use Bactrim and she was given a smaller dose due to her creatinine clearance, patient stated that she is not feeling better with that, so she ended up coming to the emergency department [facility] emergency department yesterday she was found to have severe hyponatremia with a sodium of 113 and severe hypochloremia as well, she was started on IV fluid resuscitation in the form of normal saline at 50 cc an hour, her sodium is up to 115 she continues to be severely hyponatremic, she will be admitted to the ICU, patient may need to be started on 3% hypertonic to try to improve her sodium up to like 120 nephrolo gy consultation was obtained, I obtain serum osmolality, urine osmolality, urine sodium, cortisol level, TSH and free T4, patient also was found to have urinary tract infection, urine culture was sent blood culture was sent I started the patient on Azactam 1 g IV piggyback every 8 hours, continue Bactrim IV piggyback for now until further recommendation by ID. REVIEW OF SYSTEMS: Constitutional: No documented fever, no chills, no night sweats. No weight change. Positive for weakness, fatigue or lethargy. No daytime sleepiness. HEENT: No headache. No blurred vision or double vision, no loss of vision. No loss of Hearing, no ringing in the ears, no dizziness. No nasal drainage or congestion. No epistaxis. No sore throat. Lungs: Positive for shortness of breath, no cough, no sputum production. No wheezing. Reports dyspnea with activity. Cardiovascular: No chest pain, positive for lower extremity edema. Positive for palpitations. negative for paroxysmal nocturnal dyspnea. Negative for orthopnea. No lightheadedness or dizziness. No syncopal episodes. Abdominal: Reports abdominal pain. No nausea, vomiting. No diarrhea. No constipation. No bloody or tarry stools reports loss of appetite. Genitourinary: Positive for dysuria, increased frequency, urgency. No urinary retention. Musculoskeletal: No myalgias. Positive muscle weakness, positive for gait dysfunction, no frequent falls. positive for back pain. No neck pain. Integumentary: No wounds, no lesions. No rash or pruritus. No unusual bruising. No change in hair or nails. Neurologic: No aphasia. No facial droop. No change in mentation. No head injury. No headache. No paralysis. positive for facial paresthesia. Psychiatric: positive for depression, positive for anxiety. No mood swings. Endocrine: abnormal blood sugars. positive for weight change. PAST MEDICAL HISTORY: Hypertension and hypertensive cardiovascular disease. Mixed hyperlipidemia GERD Diabetes Mellitus type 2. Diabetic polyneuropathy. Obesity with YESIKA. Vitamin D deficiency. Asthma. Chronic diastolic heart failure. TIA. PAST SURGICAL HISTORY: Tonsillectomy. Hysterectomy. Tubal ligation Cholecystectomy. Right catarct surgery Right knee surgery Colonoscopy 2009 EGD 2015 SOCIAL HISTORY: Patient is a life long non smoker, she denies any alcohol ingestion, no drug use or abuse, she is a and she lives alone, just lost her recently to ruptured Aortic Aneurysm FAMILY HISTORY: Father at the age of 86 from prostate cancer, Mother at the age of 74 from lung cancer, one brother at the age of 21 from CO poisoning, one daughter with hypertension PHYSICAL EXAMINATION: General: 78 year old female sitting up in bed no apparent distress. HEENT: Head is atraumatic, normocephalic, pupils were equal round reactive to light and recommendation, extraocular muscle movement were intact, sclera non icteric, conjunctivae were pale, mucous membranes of the mouth are somewhat dry. Neck: Supple, no JVP, normal carotid upstroke bilaterally, no lymphadenopathy. Chest: Decreased breath sounds at the bases, few rhonchi, no expiratory wheezes, no chest wall tenderness, no intercostal retractions. Heart: First heart sound is normal, second heart sound is normal there is BIANCA 2/6 located at the left sternal border. Abdomen: Soft, obese nontender, nondistended, positive bowel sounds. Extremities: There is +1 edema no calf tenderness DP +2 bilaterally. Neurologic examination: Patient is awake alert and oriented X3, cranial nerves II-12 appear grossly intact, muscle power were 4 out of 5 in upper extremities and 4 out of 5 in bilateral lower extremities, deep tendon reflexes normal bilaterally. ASSESSMENT AND PLAN: 1. Severe hypovolemic hyponatremia with SIADH as well awaiting the final resul t of the serum osmolality and urine osmolality. , patient will be be started on 3% hypertonic saline to try to get her sodium to 120 nephrology consultation appreciated, patient will be admitted to the ICU, monitor her sodium every 4 hours, the plan is to get her sodium no more than 6 mEq over the next 24 hours. 2. Hypovolemic hyponatremia with possible element of SIADH. Continue 3% saline at 25 cc an hour monitor sodium level every 2 hours, stop for sodium level to 120. Await the final result of the serum osmolality and urine osmolality and urine sodium. 3. Recurrent UTI with sepsis. Urine culture, blood culture, start the patient on Azactam 1 g piggyback every 8 hours, continue Bactrim IV piggyback every 12 hours. Infectious ease consultation from Dr. Bauer. 4. Hypertension and hypertensive cardiovascular disease. we will continue with Atenolol 50 mg po bid, Clonidine 0.2 mg 1 tabs po at bedtime, Losartan 100 mg po daily, Amlodipine 5 mg orally daily and we will continue with BP monitoring. 5. Mixed hyperlipidemia. we will continue with low cholesterol diet and exercise and weight loss, patient is not taking any statin at this time, and she refused PCSK9 inhibitor keep LDL-c 55-70 6. Diabetes Mellitus type 2. we will continue with Lantus 12 units at bedtime along with SSI and we will continue with Metformin 1000 mg po daily and Pioglitasone 30 mg po daily, BGM before each meal and at bedtime. 7. Obesity and obstructive sleep apnea and OHS. not able to tolerate CPAP. 8. Vitamin D deficiency. we will continue with vitamin d supplements. 9. Asthma. stable. 10. GERD with PUD. we will continue with Protonix 40 mg IVP daily. 11. Anxiety.we will continue with Xanax as needed. 12. Paroxysmal atrial fibrillation currently in sinus rhythm. Patient is not a candidate for anticoagulation because of recurrent GI bleed. Continue atenolol 50 mg orally twice every day monitor the patient symptoms very closely. 13. DVT Prophylaxis continue heparin 5000 units subcutaneously every 8 hours per. 14. GI Prophylaxis . we will continue with Pantoprazole 40 mg IV push daily. 15 .Admit to inpatient, estimated length of stay 2 midnights. 16. Full code. Past Medical History Past Medical History: Asthma, Diabetes Mellitus, GERD/Reflux, Hyperlipidemia, Hypertension Additional Past Medical History / Comment(s): Zenker's diverticulum, hemrroids History of Any Multi-Drug Resistant Organisms: None Reported Past Surgical History: Cholecystectomy, Hysterectomy, Orthopedic Surgery, Tonsillectomy, Tubal Ligation Additional Past Surgical History / Comment(s): right knee. right cataract. Past Anesthesia/Blood Transfusion Reactions: No Reported Reaction Past Psychological History: Anxiety Smoking Status: Never smoker Past Alcohol Use History: None Reported Past Drug Use History: None Reported - Past Family History Mother Family Medical History: Cancer Additional Family Medical History / Comment(s): . Father Family Medical History: Cancer Additional Family Medical History / Comment(s): prostate Medications and Allergies Home Medications Medication Instructions Recorded Confirmed Type Pioglitazone [Actos] 15 mg PO DAILY@89903/11/16 06/20/24 History atenoloL [Tenormin] 50 mg PO BID@0900,209903/11/16 06/20/24 History metFORMIN HCL [Glucophage] 1,000 mg PO BID@1399,209903/11/16 06/20/24 History Insulin Glargine,Hum.rec.anlog 7 - 18 units SQ HS 10/24/16 06/20/24 History [Lantus Solostar Pen] ALPRAZolam [Xanax] 0.125 mg PO BID@00,209908/05/22 06/20/24 History Acetaminophen Tab [Tylenol] 500 mg PO TID@0900,1400,209912/11/23 06/20/24 History Losartan Potassium 100 mg PO DAILY@89912/11/23 06/20/24 History Magnesium Oxide [Mag-Ox] 400 mg PO DAILY@139912/11/23 06/20/24 History amLODIPine [Norvasc] 5 mg PO DAILY@89912/11/23 06/20/24 History cloNIDine HCL [Catapres] 0.2 mg PO HS@209912/11/23 06/20/24 History Acetaminophen Tab [Tylenol] 650 mg PO Q4HR PRN #0 tab 12/16/23 06/20/24 Rx Levothyroxine Sodium [Synthroid] 25 mcg PO DAILY@0630 #30 tab 12/16/23 06/20/24 Rx Furosemide [Lasix] 20 mg PO BID@0900,1600 06/20/24 06/20/24 History Furosemide [Lasix] 40 mg PO BID@0900,1600 06/20/24 06/20/24 History Sulfamethox-Tmp 200-40Mg/5Ml 5 ml PO BID@0700,1900 06/20/24 06/20/24 History [Bactrim Suspension] Allergies Allergy/AdvReac Type Severity Reaction Status Date / Time cephalexin Allergy Unknown Verified 06/20/24 19:44 ciprofloxacin [From Cipro] Allergy Anaphylaxis Verified 06/20/24 19:44 codeine Allergy Chest Pain Verified 06/20/24 19:44 diclofenac Allergy Anaphylaxis Verified 06/20/24 19:44 difluprednate [From Durezol] Allergy Anaphylaxis Verified 06/20/24 19:44 dog dander Allergy Unknown Verified 06/20/24 19:44 doxycycline [From Vibramycin] Allergy Unknown Verified 06/20/24 19:44 epinephrine Allergy Unknown Verified 06/20/24 19:44 erythromycin base Allergy Unknown Verified 06/20/24 19:44 Fish Containing Products Allergy Anaphylaxis Verified 06/20/24 19:44 iodine Allergy Unknown Verified 06/20/24 21:42 latex Allergy Anaphylaxis Verified 06/20/24 19:44 metronidazole [From Flagyl] Allergy Anaphylaxis Verified 06/20/24 19:44 mold Allergy Unknown Verified 06/20/24 19:44 nepafenac Allergy Anaphylaxis Verified 06/20/24 19:44 ofloxacin [From Floxin] Allergy Anaphylaxis Verified 06/20/24 19:44 Penicillins Allergy Unknown Verified 06/20/24 19:44 Childhood shellfish derived [Shellfish] Allergy Anaphylaxis Verified 06/20/24 19:44 strawberry Allergy Burning & Verified 06/20/24 19:44 swelling Thiazides Allergy Unknown Verified 06/20/24 19:44 tomato AdvReac Mild Unknown Verified 06/20/24 19:44 Childhood bandages Allergy Unknown Uncoded 06/20/24 19:44 dust Allergy Unknown Uncoded 06/20/24 19:44 seafood Allergy Anaphylaxis Uncoded 06/20/24 19:44 Physical Exam Vitals: Vital Signs Temp Pulse Resp BP Pulse Ox 06/21/24 03:00 71 18 143/65 06/21/24 01:53 98 F 62 18 142/58 06/21/24 00:28 60 20 141/65 06/20/24 21:43 97.5 F L 65 18 160/65 96 06/20/24 19:34 98.7 F 06/20/24 18:56 67 18 141/70 96 Intake and Output 06/20/24 06/20/24 06/21/24 14:59 22:59 06:59 Other: Weight 113.398 kg Results CBC & Chem 7: 06/21/24 07:11 06/21/24 16:29 Labs: Abnormal Lab Results - Last 24 Hours (Table) 06/20/24 06/20/24 06/20/24 Range/Units 19:35 19:55 19:55 WBC 24.2 H (3.8-10.6) k/uL RBC 3.36 L (3.80-5.40) m/uL Hgb 8.6 L (11.4-16.0) gm/dL Hct 27.9 L (34.0-46.0) % MCHC 30.6 L (31.0-37.0) g/dL Plt Count 585 H (150-450) k/uL Neutrophils # 21.9 H (1.3-7.7) k/uL Sodium 113 L* (137-145) mmol/L Chloride 78 L (98-107) mmol/L BUN 20 H (7-17) mg/dL Glucose 322 H (74-99) mg/dL Magnesium 1.2 L (1.6-2.3) mg/dL AST 39 H (14-36) U/L Alkaline Phosphatase 203 H (38-126) U/L Albumin 3.3 L (3.5-5.0) g/dL Urine Appearance Turbid H (Clear) Urine Protein Trace H (Negative) Urine Glucose (UA) 4+ H (Negative) Urine Blood Moderate H (Negative) Ur Leukocyte Esterase Large H (Negative) Urine RBC 118 H (0-5) /hpf Urine WBC >182 H (0-5) /hpf Urine WBC Clumps Many H (None) /hpf Urine Bacteria Occasional H (None) /hpf Urine Yeast (Budding) Many H (None) /hpf 06/21/24 Range/Units 03:02 WBC (3.8-10.6) k/uL RBC (3.80-5.40) m/uL Hgb (11.4-16.0) gm/dL Hct (34.0-46.0) % MCHC (31.0-37.0) g/dL Plt Count (150-450) k/uL Neutrophils # (1.3-7.7) k/uL Sodium 115 L* (137-145) mmol/L Chloride 78 L (98-107) mmol/L BUN 18 H (7-17) mg/dL Glucose 231 H (74-99) mg/dL Magnesium (1.6-2.3) mg/dL AST (14-36) U/L Alkaline Phosphatase (38-126) U/L Albumin (3.5-5.0) g/dL Urine Appearance (Clear) Urine Protein (Negative) Urine Glucose (UA) (Negative) Urine Blood (Negative) Ur Leukocyte Esterase (Negative) Urine RBC (0-5) /hpf Urine WBC (0-5) /hpf Urine WBC Clumps (None) /hpf Urine Bacteria (None) /hpf Urine Yeast (Budding) (None) /hpf
[2024-06-21 20:08] LABS: Glucose,Whole Blood 201 mg/dL (70-110)
[2024-06-21] MEDS: INSULIN GLARGINE (LANTUS) 100 UNIT/ML SYR SQ SCH (20:59)
[2024-06-21] MEDS ORDERED: cloNIDine HCL 0.1 MG TAB PO SCH (21:00)
--- NOTE | 2024-06-21 22:58 | P.CONS ---
History of Present Illness - Reason for Consult Consult date: 06/21/24 Pneumonia, UTI Requesting physician: Deedee Garcia - Chief Complaint Weakness burning frequency of urine x days - History of Present Illness Patient is a 78-year-old female with a past medical history significant for diabetes mellitus reflux hypertension hyperlipidemia asthma anxiety presenting to the hospital for evaluation of weakness in this patient symptom has been getting worse for the last few days patient is also complaining of increasing urinary frequency as well as dysuria and the patient has been treated in the outpatient setting with the Bactrim DS however the patient has been complaining of feeling weak and no energy also complaining of sinus pressure and congestion but denies having any worsening cough or sputum production nausea but no vomiting no abdominal pain or diarrhea with the symptoms the patient has been evaluated on presentation to the hospital the patient was afebrile and no fever have been called subsequently patient was no ntachycardic hypotensive not hypoxic no need for supplemental oxygen patient did have a white count of 24.2 with a left shift creatinine has been normal liver enzymes are normal urine has been positive influenza RSV COVID testing was negative patient did have a chest x-ray cardiomegaly patchy interstitial airspace opacity most pronounced in the right lung could represent pulmonary was congestion or multifocal pneumonia patient did have abdominal pelvis CT patchy nodular opacity in the posterior/lower lungs compatible with multifocal pneumonia fluid distention of the distal thoracic esophagus suggestive reflux and acute abnormality in the abdominal pelvis patient was started on Azactam clindamycin and IV Bactrim infectious disease was consulted for further management of antibiotic therapy Review of Systems Positive point and negatives has been mentioned in the HPI, complete review of systems was performed and all other systems are negative Past Medical History Past Medical History: Asthma, Diabetes Mellitus, GERD/Reflux, Hyperlipidemia, Hypertension Additional Past Medical History / Comment(s): Zenker's diverticulum, hemrroids History of Any Multi-Drug Resistant Organisms: None Reported Past Surgical History: Cholecystectomy, Hysterectomy, Orthopedic Surgery, Tonsillectomy, Tubal Ligation Additional Past Surgical History / Comment(s): right knee. right cataract. Past Anesthesia/Blood Transfusion Reactions: No Reported Reaction Past Psychological History: Anxiety Smoking Status: Never smoker Past Alcohol Use History: None Reported Past Drug Use History: None Reported - Past Family History Mother Family Medical History: Cancer Additional Family Medical History / Comment(s): . Father Family Medical History: Cancer Additional Family Medical History / Comment(s): prostate Medications and Allergies Home Medications Medication Instructions Recorded Confirmed Type Pioglitazone [Actos] 15 mg PO DAILY@0900 03/11/16 06/20/24 History atenoloL [Tenormin] 50 mg PO BID@0900,209903/11/16 06/20/24 History metFORMIN HCL [Glucophage] 1,000 mg PO BID@1400,209903/11/16 06/20/24 History Insulin Glargine,Hum.rec.anlog 7 - 18 units SQ HS 10/24/16 06/20/24 History [Lantus Solostar Pen] ALPRAZolam [Xanax] 0.125 mg PO BID@0900,209908/05/22 06/20/24 History Acetaminophen Tab [Tylenol] 500 mg PO TID@0900,1400,209912/11/23 06/20/24 History Losartan Potassium 100 mg PO DAILY@89912/11/23 06/20/24 History Magnesium Oxide [Mag-Ox] 400 mg PO DAILY@1400 12/11/23 06/20/24 History amLODIPine [Norvasc] 5 mg PO DAILY@89912/11/23 06/20/24 History cloNIDine HCL [Catapres] 0.2 mg PO HS@209912/11/23 06/20/24 History Acetaminophen Tab [Tylenol] 650 mg PO Q4HR PRN #0 tab 12/16/23 06/20/24 Rx Levothyroxine Sodium [Synthroid] 25 mcg PO DAILY@0630 #30 tab 12/16/23 06/20/24 Rx Furosemide [Lasix] 20 mg PO BID@0900,1600 06/20/24 06/20/24 History Furosemide [Lasix] 40 mg PO BID@0900,1600 06/20/24 06/20/24 History Sulfamethox-Tmp 200-40Mg/5Ml 5 ml PO BID@0700,1900 06/20/24 06/20/24 History [Bactrim Suspension] Allergies Allergy/AdvReac Type Severity Reaction Status Date / Time cephalexin Allergy Unknown Verified 06/20/24 19:44 ciprofloxacin [From Cipro] Allergy Anaphylaxis Verified 06/20/24 19:44 codeine Allergy Chest Pain Verified 06/20/24 19:44 diclofenac Allergy Anaphylaxis Verified 06/20/24 19:44 difluprednate [From Durezol] Allergy Anaphylaxis Verified 06/20/24 19:44 dog dander Allergy Unknown Verified 06/20/24 19:44 doxycycline [From Vibramycin] Allergy Unknown Verified 06/20/24 19:44 epinephrine Allergy Unknown Verified 06/20/24 19:44 erythromycin base Allergy Unknown Verified 06/20/24 19:44 Fish Containing Products Allergy Anaphylaxis Verified 06/20/24 19:44 iodine Allergy Unknown Verified 06/20/24 21:42 latex Allergy Anaphylaxis Verified 06/20/24 19:44 metronidazole [From Flagyl] Allergy Anaphylaxis Verified 06/20/24 19:44 mold Allergy Unknown Verified 06/20/24 19:44 nepafenac Allergy Anaphylaxis Verified 06/20/24 19:44 ofloxacin [From Floxin] Allergy Anaphylaxis Verified 06/20/24 19:44 Penicillins Allergy Unknown Verified 06/20/24 19:44 Childhood shellfish derived [Shellfish] Allergy Anaphylaxis Verified 06/20/24 19:44 strawberry Allergy Burning & Verified 06/20/24 19:44 swelling Thiazides Allergy Unknown Verified 06/20/24 19:44 tomato AdvReac Mild Unknown Verified 06/20/24 19:44 Childhood bandages Allergy Unknown Uncoded 06/20/24 19:44 dust Allergy Unknown Uncoded 06/20/24 19:44 seafood Allergy Anaphylaxis Uncoded 06/20/24 19:44 Physical Exam Vitals: Vital Signs Temp Pulse Resp BP Pulse Ox 06/21/24 10:54 98.2 F 58 L 16 113/59 93 L 06/21/24 09:00 98 F 71 16 142/68 97 06/21/24 03:00 71 18 143/65 06/21/24 01:53 98 F 62 18 142/58 06/21/24 00:28 60 20 141/65 06/20/24 21:43 97.5 F L 65 18 160/65 96 06/20/24 19:34 98.7 F 06/20/24 18:56 67 18 141/70 96 Intake and Output 06/20/24 06/21/24 06/21/24 22:59 06:59 14:59 Other: Weight 113.398 kg GENERAL DESCRIPTION: Elderly female lying in bed, no distress. No tachypnea or accessory muscle of respiration use. HEENT: Shows Pallor , no scleral icterus. Oral mucous membrane is dry. NECK: Trachea central, no thyromegaly. LUNGS: Unlabored breathing. Decreased breath sound at the base HEART: S1, S2, regular rate and rhythm. No loud murmur ABDOMEN: Soft, no tenderness , EXTREMITIES: No edema of feet. SKIN: No rash, no masses palpable. NEUROLOGICAL: The patient is awake, alert, oriented x3, mood and affect normal. Results CBC & Chem 7: 06/21/24 07:11 06/21/24 20:27 Labs: Abnormal Lab Results - Last 24 Hours (Table) 06/20/24 06/20/24 06/20/24 Range/Units 19:35 19:55 19:55 WBC 24.2 H (3.8-10.6) k/uL RBC 3.36 L (3.80-5.40) m/uL Hgb 8.6 L (11.4-16.0) gm/dL Hct 27.9 L (34.0-46.0) % MCHC 30.6 L (31.0-37.0) g/dL Plt Count 585 H (150-450) k/uL Neutrophils # 21.9 H (1.3-7.7) k/uL Sodium 113 L* (137-145) mmol/L Chloride 78 L (98-107) mmol/L BUN 20 H (7-17) mg/dL Glucose 322 H (74-99) mg/dL Magnesium 1.2 L (1.6-2.3) mg/dL AST 39 H (14-36) U/L Alkaline Phosphatase 203 H (38-126) U/L Albumin 3.3 L (3.5-5.0) g/dL Procalcitonin (0.02-0.50) ng/mL Cortisol (3.1-22.4) UG/DL Urine Appearance Turbid H (Clear) Urine Protein Trace H (Negative) Urine Glucose (UA) 4+ H (Negative) Urine Blood Moderate H (Negative) Ur Leukocyte Esterase Large H (Negative) Urine RBC 118 H (0-5) /hpf Urine WBC >182 H (0-5) /hpf Urine WBC Clumps Many H (None) /hpf Urine Bacteria Occasional H (None) /hpf Urine Yeast (Budding) Many H (None) /hpf 06/21/24 06/21/24 06/21/24 Range/Units 03:02 03:02 03:02 WBC (3.8-10.6) k/uL RBC (3.80-5.40) m/uL Hgb (11.4-16.0) gm/dL Hct (34.0-46.0) % MCHC (31.0-37.0) g/dL Plt Count (150-450) k/uL Neutrophils # (1.3-7.7) k/uL Sodium 115 L* (137-145) mmol/L Chloride 78 L (98-107) mmol/L BUN 18 H (7-17) mg/dL Glucose 231 H (74-99) mg/dL Magnesium (1.6-2.3) mg/dL AST (14-36) U/L Alkaline Phosphatase (38-126) U/L Albumin (3.5-5.0) g/dL Procalcitonin 0.77 H (0.02-0.50) ng/mL Cortisol 24.7 H (3.1-22.4) UG/DL Urine Appearance (Clear) Urine Protein (Negative) Urine Glucose (UA) (Negative) Urine Blood (Negative) Ur Leukocyte Esterase (Negative) Urine RBC (0-5) /hpf Urine WBC (0-5) /hpf Urine WBC Clumps (None) /hpf Urine Bacteria (None) /hpf Urine Yeast (Budding) (None) /hpf 06/21/24 06/21/24 06/21/24 Range/Units 07:11 07:11 09:15 WBC 22.6 H (3.8-10.6) k/uL RBC 3.37 L (3.80-5.40) m/uL Hgb 8.5 L (11.4-16.0) gm/dL Hct 27.5 L (34.0-46.0) % MCHC 30.9 L (31.0-37.0) g/dL Plt Count 589 H (150-450) k/uL Neutrophils # 19.4 H (1.3-7.7) k/uL Sodium 115 L* 114 L* (137-145) mmol/L Chloride 80 L (98-107) mmol/L BUN 18 H (7-17) mg/dL Glucose 188 H (74-99) mg/dL Magnesium (1.6-2.3) mg/dL AST (14-36) U/L Alkaline Phosphatase 214 H (38-126) U/L Albumin 3.3 L (3.5-5.0) g/dL Procalcitonin (0.02-0.50) ng/mL Cortisol (3.1-22.4) UG/DL Urine Appearance (Clear) Urine Protein (Negative) Urine Glucose (UA) (Negative) Urine Blood (Negative) Ur Leukocyte Esterase (Negative) Urine RBC (0-5) /hpf Urine WBC (0-5) /hpf Urine WBC Clumps (None) /hpf Urine Bacteria (None) /hpf Urine Yeast (Budding) (None) /hpf Assessment and Plan (1) Allergy to multiple antibiotics Current Visit: Yes Status: Acute Code(s): Z88.1 - ALLERGY STATUS TO OTHER ANTIBIOTIC AGENTS SNOMED Code(s): 960030233 (2) UTI (urinary tract infection) Current Visit: Yes Status: Acute Code(s): N39.0 - URINARY TRACT INFECTION, SITE NOT SPECIFIED SNOMED Code(s): 20919941 Plan: 1patient presented hospital with generalized weakness no energy she also have urinary burning and frequency significantly positive UA likely concerning for symptomatic UTI from enteric gram-negative pathogen failing outpatient oral Bactrim DS therapy patient CT abdomen pelvis concerning for some multifocal infiltrate the lung bases but no significant cough clinic suspicious low for pneumonia especially of aspiration etiology 2-patient with multiple antibiotic ALLERGIES that would limit the number of antibiotic safe to use 3-we will keep with the patient on Azactam increase the dose of 2 g every 8 hours discontinue IV Bactroban clindamycin We will follow on clinical condition and cultures to further adjust medication if needed Thank you for this consultation we will follow the patient along with you Dictation was produced using [employer] dictation software. please excuse any grammatical, word or spelling errors. Time with Patient: Greater than 30
[2024-06-21] MEDS: cloNIDine HCL 0.1 MG TAB PO SCH (23:06)
[2024-06-22] MEDS ORDERED: AZTREONAM 2 GM in SODIUM CHLORIDE 0.9% 50 ML IVPB SCH
[2024-06-22] MEDS: FUROSEMIDE 10 MG/ML 4 ML VIAL IV STA ×2 (00:09→16:35)
[2024-06-22] MEDS: AZTREONAM 2 GM in SODIUM CHLORIDE 0.9% 100 ML IVPB SCH (00:10)
[2024-06-22] MEDS: SODIUM CHLORIDE 3%(HYPERTONIC) 500 ML IV ONE (05:56)
[2024-06-22 05:57] LABS: Glucose,Whole Blood 120 mg/dL (70-110)
--- NOTE | 2024-06-22 05:59 | XR ---
EXAMINATION TYPE: XR chest 1V portable DATE OF EXAM: 06/22/2024 CLINICAL INDICATION: Female, 78 years old with history of pneumonia f/u, progress study. TECHNIQUE: Single AP portable semiupright view of the chest is obtained. COMPARISON: Chest x-ray from 2 days earlier FINDINGS: Persistent cardiomegaly. Persistent multifocal increased opacities in the right lung. Left lung remains clear. Osseous structures are intact. IMPRESSION: Persistent cardiomegaly with multifocal right lung acute infiltrates and/or atelectasis. No significant change from most recent study. [facility], , 06/22/2024 5:56 AM
[2024-06-22 06:27] LABS: Basophils % (A) 0 %; Eosinophils # (A) 0.1 k/uL (0-0.7); Eosinophils % (A) 1 %; HCT 25.1 % (34.0-46.0); HGB 7.6 gm/dL (11.4-16.0); Hypochromasia Slight; Lymphocytes # (A) 3.6 k/uL (1.0-4.8); Lymphocytes % (A) 18 %; MCH 25.2 pg (25.0-35.0); MCHC 30.5 g/dL (31.0-37.0); MCV 82.7 fL (80.0-100.0); Mean Platelet Volume 7.1; Monocytes # (A) 1.1 k/uL (0-1.0); Monocytes % (A) 5 %; Neutrophils # (A) 14.6 k/uL (1.3-7.7); Neutrophils % (A) 74 %; Platelet Count 579 k/uL (150-450); RBC 3.04 m/uL (3.80-5.40); RDW 15.1 % (11.5-15.5); WBC 19.9 k/uL (3.8-10.6)
[2024-06-22 06:55] LABS: African American GFR (CKD) 41 (>60 ml/min/1.73 sqM); Anion Gap 8 mmol/L; Blood Urea Nitrogen 23 mg/dL (7-17); Calcium 8.9 mg/dL (8.4-10.2); Carbon Dioxide 25 mmol/L (22-30); Chloride 85 mmol/L (98-107); Glucose 99 mg/dL (74-99); Non-African American GFR(CKD) 35 (>60 ml/min/1.73 sqM); Potassium 5.1 mmol/L (3.5-5.1)
[2024-06-22 06:57] LABS: Sodium 118 mmol/L (137-145)
[2024-06-22] MEDS: TOLVAPTAN 15 MG TABLET PO ONE ×2 (11:31→22:04)
--- NOTE | 2024-06-22 12:15 | XR ---
EXAMINATION TYPE: XR chest 1V DATE OF EXAM: 06/22/2024 CLINICAL INDICATION: Female, 78 years old with history of pneumonia, progress study. TECHNIQUE: Single AP portable upright view of the chest is obtained. COMPARISON: Chest x-ray from earlier today FINDINGS: Persistent cardiomegaly. Persistent multifocal increased opacities in the right lung. Left lung remai ns clear. Osseous structures are intact. IMPRESSION: Persistent cardiomegaly with multifocal right lung acute infiltrates and/or scarring. No significant change from study earlier today. [facility], , 06/22/2024 12:13 PM
--- NOTE | 2024-06-22 12:22 | P.PN ---
Subjective Patient is seen in follow-up for hyponatremia. Gradually improving with 3% saline. Also received 2 doses of IV Lasix yesterday. Oral intake is fair. Has a tough time swallowing. Vital signs are stable. General: No acute distress. HEENT: Head exam is unremarkable. LUNGS: No audible rhonchi or wheezes. HEART: Rate and Rhythm are regular. ABDOMEN: Nontender. Obese. EXTREMITITES: 2+ edema. Objective - Vital Signs Vital signs: Vital Signs Temp 97.8 F 06/22/24 07:51 Pulse 58 L 06/22/24 11:00 Resp 20 06/22/24 11:00 BP 131/57 06/22/24 11:00 Pulse Ox 96 06/22/24 11:00 FiO2 Intake & Output 06/21/24 06/22/24 06/22/24 18:59 06:59 18:59 Output Total 200 905 480 Balance -200 -905 -480 Output: Urine 200 905 480 Uretheral (Harding) 200 Other: Voiding Method Indwelling Catheter - Labs CBC & Chem 7: 06/22/24 05:46 06/22/24 09:38 Labs: Abnormal Lab Results - Last 24 Hours (Table) 06/21/24 06/21/24 06/21/24 Range/Units 07:11 12:01 12:14 WBC (3.8-10.6) k/uL RBC (3.80-5.40) m/uL Hgb (11.4-16.0) gm/dL Hct (34.0-46.0) % MCHC (31.0-37.0) g/dL Plt Count (150-450) k/uL Neutrophils # (1.3-7.7) k/uL Monocytes # (0-1.0) k/uL Sodium 113 L* (137-145) mmol/L Chloride (98-107) mmol/L BUN (7-17) mg/dL Creatinine (0.52-1.04) mg/dL POC Glucose (mg/dL) 292 H (70-110) mg/dL Osmolality 261 L (275-295) mOsm/kg 06/21/24 06/21/24 06/21/24 Range/Units 14:06 16:29 16:51 WBC (3.8-10.6) k/uL RBC (3.80-5.40) m/uL Hgb (11.4-16.0) gm/dL Hct (34.0-46.0) % MCHC (31.0-37.0) g/dL Plt Count (150-450) k/uL Neutrophils # (1.3-7.7) k/uL Monocytes # (0-1.0) k/uL Sodium 111 L* 113 L* (137-145) mmol/L Chloride (98-107) mmol/L BUN (7-17) mg/dL Creatinine (0.52-1.04) mg/dL POC Glucose (mg/dL) 210 H (70-110) mg/dL Osmolality (275-295) mOsm/kg 06/21/24 06/21/24 06/21/24 Range/Units 18:33 20:06 20:27 WBC (3.8-10.6) k/uL RBC (3.80-5.40) m/uL Hgb (11.4-16.0) gm/dL Hct (34.0-46.0) % MCHC (31.0-37.0) g/dL Plt Count (150-450) k/uL Neutrophils # (1.3-7.7) k/uL Monocytes # (0-1.0) k/uL Sodium 114 L* 114 L* (137-145) mmol/L Chloride (98-107) mmol/L BUN (7-17) mg/dL Creatinine (0.52-1.04) mg/dL POC Glucose (mg/dL) 201 H (70-110) mg/dL Osmolality (275-295) mOsm/kg 06/21/24 06/22/24 06/22/24 Range/Units 22:33 00:37 05:46 WBC 19.9 H (3.8-10.6) k/uL RBC 3.04 L (3.80-5.40) m/uL Hgb 7.6 L (11.4-16.0) gm/dL Hct 25.1 L (34.0-46.0) % MCHC 30.5 L (31.0-37.0) g/dL Plt Count 579 H (150-450) k/uL Neutrophils # 14.6 H (1.3-7.7) k/uL Monocytes # 1.1 H (0-1.0) k/uL Sodium 114 L* 115 L* (137-145) mmol/L Chloride (98-107) mmol/L BUN (7-17) mg/dL Creatinine (0.52-1.04) mg/dL POC Glucose (mg/dL) (70-110) mg/dL Osmolality (275-295) mOsm/kg 06/22/24 06/22/24 06/22/24 Range/Units 05:46 05:46 05:55 WBC (3.8-10.6) k/uL RBC (3.80-5.40) m/uL Hgb (11.4-16.0) gm/dL Hct (34.0-46.0) % MCHC (31.0-37.0) g/dL Plt Count (150-450) k/uL Neutrophils # (1.3-7.7) k/uL Monocytes # (0-1.0) k/uL Sodium 118 L* 118 L* (137-145) mmol/L Chloride 85 L (98-107) mmol/L BUN 23 H (7-17) mg/dL Creatinine 1.42 H (0.52-1.04) mg/dL POC Glucose (mg/dL) 120 H (70-110) mg/dL Osmolality (275-295) mOsm/kg 06/22/24 06/22/24 Range/Units 07:33 09:38 WBC (3.8-10.6) k/uL RBC (3.80-5.40) m/uL Hgb (11.4-16.0) gm/dL Hct (34.0-46.0) % MCHC (31.0-37.0) g/dL Plt Count (150-450) k/uL Neutrophils # (1.3-7.7) k/uL Monocytes # (0-1.0) k/uL Sodium 118 L* 119 L* (137-145) mmol/L Chloride (98-107) mmol/L BUN (7-17) mg/dL Creatinine (0.52-1.04) mg/dL POC Glucose (mg/dL) (70-110) mg/dL Osmolality (275-295) mOsm/kg Microbiology - Last 24 Hours (Table) 06/20/24 19:35 Urine Culture - Final Urine,Voided Assessment and Plan Plan: Assessment: 1. 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 Sodium level 113 on admission and up to 119 this morning. No further improvement with normal saline. TSH normal. Urine sodium 65 and urine osmolality 586. Cortisol level 24.7. 2. UTI on antibiotics. 3. Benign hypertension. Stable. 4. Diabetes mellitus. 5. Hypomagnesemia from poor intake. Replaced. 6. Acute kidney injury secondary to vasomotor nephropathy secondary to diuresis. Creatinine 1.42 today. Plan: Stop 3% saline. Samsca 7.5 mg once now. Repeat sodium level this afternoon. Encouraged oral intake. Hold amlodipine for systolic blood pressure less than 120. Repeat magnesium level as well today.
[2024-06-22 17:06] LABS: Glucose,Whole Blood 202 mg/dL (70-110)
[2024-06-22] MEDS: guaiFENesin-DM 100-10MG/5ML 10 ML CUP PO PRN (18:29)
--- NOTE | 2024-06-22 18:49 | P.PN ---
Subjective Progress Note Date: 06/22/24 Patient is a 78-year-old female with past medical history significant for hypertension, hyperlipidemia, diabetes mellitus, heart failure, Zenker's diverticulum, and previous hospitalizations for hyponatremia. Patient presents to the emergency department last night with a chief complaint of generalized w eakness. Of note, previously having episodes of burning with urination and urinary frequency. Outpatient urine culture positive for Proteus Mirabilis, and patient was started on Bactrim on Friday by her PCP Dr. Sanchez. Workup in the emergency department significant for severe hyponatremia. Sodium was 113. Nephrology was consulted. Further workup including a chest x-ray demonstrated patchy infiltrate of opacities, more pronounced on the right lung menon. Abdomen/pelvis CT redemonstrates patchy nodular opacities partially visualized in the lower lungs, concerning for pneumonia. Fluid distention of the distal thoracic esophagus consistent with reflux. No acute abnormality in the abdomen/pelvis. CBC: WBC count 24.2, hemoglobin 0.6, platelets 585. CMP: Sodium 113, potassium 5, chloride 78, serum bicarb 27, BUN 20, creatinine 1.03, glucose 322. Lactic 1.6. Magnesium 1.2. LFTs unremarkable. NT proBNP 406. TSH 2.8. Urinalysis positive for pyuria and bacteriuria. Viral screen negative for influenza, RSV, COVID. Patient currently being seen in the emergency department room 28. She is awake and alert and oriented x 3. On room air. Generally weak and requires assistance to sit up in bed. Denies any shortness of breath, cough, sputum production, hemoptysis, chest pain. Denies fevers or chills. Denies any sick contacts. She states that her sodium is always low. She has been taking Bactrim for her UTI and has increased her water intake. Appetite has been good. Denies any nausea or vomiting or diarrhea. Endorses some lower extremity swelling. Does take Lasix on an outpatient basis, 60 mg twice a day. No confusion, headaches, seizures. Normal saline infusing at 50 mL/h. 06/22/2024, the patient remains on room air oxygen. The patient was taken off the hypertonic saline solution and sodium levels at 119 and the patient will be given a dose of Samsca. Potassium is at 5.1. BUN is 23 with a creatinine of 1.4. The patient sustained an acute kidney injury. The white cell count of 19.9 with a hemoglobin 7.6. She has chronic dysphagia and she also had a right sided pulmonary infiltrates consistent with pneumonia. Repeat chest x-ray from today shows cardiomegaly with multifocal right-sided pulmonary infiltrate without any significant change. The patient is currently off Bactrim due to underlying acute kidney injury. Start the patient on clindamycin and this was subsequently discontinued. Patient remains on aztreonam. Blood cultures are s till pending. Urine culture is negative. Objective - Vital Signs Vital signs: Vital Signs Temp 97.8 F 06/22/24 07:51 Pulse 56 L 06/22/24 07:51 Resp 16 06/22/24 07:51 BP 137/63 06/22/24 07:51 Pulse Ox 94 L 06/22/24 07:51 FiO2 Intake & Output 06/21/24 06/22/24 06/22/24 18:59 06:59 18:59 Output Total 200 905 Balance -200 -905 Output: Urine 200 905 Uretheral (Harding) 200 Other: Voiding Method Indwelling Catheter - Exam GENERAL EXAM: Alert, morbidly obese 78-year-old white female, comfortable in no apparent distress. HEAD: Normocephalic and atraumatic EYES: Normal reaction of pupils, equal size. NOSE: Clear with pink turbinates. THROAT: No erythema or exudates. NECK: No masses, no JVD. CHEST: No chest wall deformity. LUNGS: Equal air entry with right lung inspiratory crackles. On room air. No conversational dyspnea or accessory muscle use.. CVS: S1 and S2 normal with no audible murmur, regular rhythm. No extra heart sounds ABDOMEN: No hepatosplenomegaly, active bowel sounds, no guarding or rigidity. SPINE: No scoliosis or deformity SKIN: No rashes CENTRAL NERVOUS SYSTEM: No focal deficits, tone is normal in all 4 extremities. EXTREMITIES: There is bilateral lower extremity nonpitting edema. No clubbing or cyanosis. Peripheral pulses are intact. - Labs CBC & Chem 7: 06/22/24 05:46 06/22/24 15:37 Labs: Abnormal Lab Results - Last 24 Hours (Table) 06/21/24 06/21/24 06/21/24 Range/Units 03:02 07:11 12:01 WBC (3.8-10.6) k/uL RBC (3.80-5.40) m/uL Hgb (11.4-16.0) gm/dL Hct (34.0-46.0) % MCHC (31.0-37.0) g/dL Plt Count (150-450) k/uL Neutrophils # (1.3-7.7) k/uL Monocytes # (0-1.0) k/uL Sodium 113 L* (137-145) mmol/L Chloride (98-107) mmol/L BUN (7-17) mg/dL Creatinine (0.52-1.04) mg/dL POC Glucose (mg/dL) (70-110) mg/dL Osmolality 261 L (275-295) mOsm/kg Cortisol 24.7 H (3.1-22.4) UG/DL 06/21/24 06/21/24 06/21/24 Range/Units 12:14 14:06 16:29 WBC (3.8-10.6) k/uL RBC (3.80-5.40) m/uL Hgb (11.4-16.0) gm/dL Hct (34.0-46.0) % MCHC (31.0-37.0) g/dL Plt Count (150-450) k/uL Neutrophils # (1.3-7.7) k/uL Monocytes # (0-1.0) k/uL Sodium 111 L* 113 L* (137-145) mmol/L Chloride (98-107) mmol/L BUN (7-17) mg/dL Creatinine (0.52-1.04) mg/dL POC Glucose (mg/dL) 292 H (70-110) mg/dL Osmolality (275-295) mOsm/kg Cortisol (3.1-22.4) UG/DL 06/21/24 06/21/24 06/21/24 Range/Units 16:51 18:33 20:06 WBC (3.8-10.6) k/uL RBC (3.80-5.40) m/uL Hgb (11.4-16.0) gm/dL Hct (34.0-46.0) % MCHC (31.0-37.0) g/dL Plt Count (150-450) k/uL Neutrophils # (1.3-7.7) k/uL Monocytes # (0-1.0) k/uL Sodium 114 L* (137-145) mmol/L Chloride (98-107) mmol/L BUN (7-17) mg/dL Creatinine (0.52-1.04) mg/dL POC Glucose (mg/dL) 210 H 201 H (70-110) mg/dL Osmolality (275-295) mOsm/kg Cortisol (3.1-22.4) UG/DL 06/21/24 06/21/24 06/22/24 Range/Units 20:27 22:33 00:37 WBC (3.8-10.6) k/uL RBC (3.80-5.40) m/uL Hgb (11.4-16.0) gm/dL Hct (34.0-46.0) % MCHC (31.0-37.0) g/dL Plt Count (150-450) k/uL Neutrophils # (1.3-7.7) k/uL Monocytes # (0-1.0) k/uL Sodium 114 L* 114 L* 115 L* (137-145) mmol/L Chloride (98-107) mmol/L BUN (7-17) mg/dL Creatinine (0.52-1.04) mg/dL POC Glucose (mg/dL) (70-110) mg/dL Osmolality (275-295) mOsm/kg Cortisol (3.1-22.4) UG/DL 06/22/24 06/22/24 06/22/24 Range/Units 05:46 05:46 05:46 WBC 19.9 H (3.8-10.6) k/uL RBC 3.04 L (3.80-5.40) m/uL Hgb 7.6 L (11.4-16.0) gm/dL Hct 25.1 L (34.0-46.0) % MCHC 30.5 L (31.0-37.0) g/dL Plt Count 579 H (150-450) k/uL Neutrophils # 14.6 H (1.3-7.7) k/uL Monocytes # 1.1 H (0-1.0) k/uL Sodium 118 L* 118 L* (137-145) mmol/L Chloride 85 L (98-107) mmol/L BUN 23 H (7-17) mg/dL Creatinine 1.42 H (0.52-1.04) mg/dL POC Glucose (mg/dL) (70-110) mg/dL Osmolality (275-295) mOsm/kg Cortisol (3.1-22.4) UG/DL 06/22/24 06/22/24 06/22/24 Range/Units 05:55 07:33 09:38 WBC (3.8-10.6) k/uL RBC (3.80-5.40) m/uL Hgb (11.4-16.0) gm/dL Hct (34.0-46.0) % MCHC (31.0-37.0) g/dL Plt Count (150-450) k/uL Neutrophils # (1.3-7.7) k/uL Monocytes # (0-1.0) k/uL Sodium 118 L* 119 L* (137-145) mmol/L Chloride (98-107) mmol/L BUN (7-17) mg/dL Creatinine (0.52-1.04) mg/dL POC Glucose (mg/dL) 120 H (70-110) mg/dL Osmolality (275-295) mOsm/kg Cortisol (3.1-22.4) UG/DL Microbiology - Last 24 Hours (Table) 06/20/24 19:35 Urine Culture - Final Urine,Voided Assessment and Plan Assessment: Severe hyponatremia, sodium 119, off hypertonic saline solution. Received Samsca and Lasix Acute kidney injury, could be related to Bactrim Generalized weakness, secondary to above History of heart failure with preserved ejection fraction Patchy multifocal infiltrates/opacities, more pronounced on the right lung menon, concerning for multifocal pneumonia. Consider aspiration pneumonia as the patient has chronic difficulties with swallowing/Zenker's diverticulum Acute leukocytosis Recent outpatient treatment for UTI with Bactrim Multiple medication allergies Hypomagnesemia, replaced Anemia, monitor for blood loss Hypertension History of hyperlipidemia Diabetes mellitus type 2, with hyperglycemia History of dysphagia with Zenker's diverticulum History of asthma, stable and inactive Morbid obesity, with a BMI of 41.6 kg/m Plan: Remains on room air oxygen Follow-up chest x-ray was noted and the findings are essentially unchanged Discontinuing the Bactrim Fluid restriction IV Lasix Samsca Monitor sodium level IV aztreonam Check procalcitonin level is at 0.77 Repeat chest x-ray in the morning, finding in the right lung are essentially unc hanged Consult speech for swallow evaluation Will downgrade to the medical floor Time with Patient: Greater than 30
--- NOTE | 2024-06-22 18:58 | P.PN ---
Subjective Progress Note Date: 06/22/24 HISTORY OF PRESENT ILLNESS: This is a 78 year old female with a previous medical history signif icant for hypertension and hypertensive cardiovascular disease, hyperlipidemia, diabetes mellitus type 2, and diabetic polyneuropathy, GERD with duodenal ulcer, and obesity with obstructive sleep apnea, and obesity hypoventilation syndrome, chronic diastolic heart filure, patient was last hospitalized at [facility] about a year ago with accelerated hypertension and hypervolemic hyponatremia and was sen by cardiology and nephrology, patient was recently to be treated as an outpatient for urinary tract infection, but she has numerous allergies/limited antibiotic use, she stated that she only can use Bactrim and she was given a smaller dose due to her creatinine clearance, patient stated that she is not feeling better with that, so she ended up coming to the emergency department [facility] emergency department yesterday she was found to have severe hyponatremia with a sodium of 113 and severe hypochloremia as well, she was started on IV fluid resuscitation in the form of normal saline at 50 cc an hour, her sodium is up to 115 she continues to be severely hyponatremic, she will be admitted to the ICU, patient may need to be started on 3% hypertonic to try to improve her sodium up to like 120 nephrology consultation was obtained, I obtain serum osmolality, urine osmolality, urine sodium, cortisol level, TSH and free T4, patient also was found to have urinary tract infection, urine culture was sent blood culture was sent I started the patient on Azactam 1 g IV piggyback every 8 hours, continue Bactrim IV piggyback for now until further recommendation by ID. 06/22: Patient sitting up in chair no apparent distress, she is on room air, her oxygenation is 95%, she is complaining of increased coughing, minimal from production, chest x-ray showed evidence of possible acute infiltrate, versus atelectasis, she was started on Azactam 2 g piggyback every 8 hours, she was taken off Bactrim, she was seen in consultation by nephrology as well as by pulmonary medicine, she was started on 3%, her sodium is up to 119, I started the patient on Lasix 40 mg IV push every 12 hours, input and output and daily weight, continue fluid restriction to 1500 cc over 24 hours, follow-up with the patient very closely. REVIEW OF SYSTEMS: Constitutional: No documented fever, no chills, no night sweats. No weight change. Positive for weakness, fatigue or lethargy. No daytime sleepiness. HEENT: No headache. No blurred vision or double vision, no loss of vision. No loss of Hearing, no ringing in the ears, no dizziness. No nasal drainage or congestion. No epistaxis. No sore throat. Lungs: Positive for shortness of breath, positive for cough, positive for sputum production. No wheezing. Reports dyspnea with activity. Cardiovascular: No chest pain, positive for lower extremity edema. Positive for palpitations. negative for paroxysmal nocturnal dyspnea. Negative for orth opnea. No lightheadedness or dizziness. No syncopal episodes. Abdominal: Reports abdominal pain. No nausea, vomiting. No diarrhea. No constipation. No bloody or tarry stools reports loss of appetite. Genitourinary: Positive for dysuria, increased frequency, urgency. No urinary retention. Musculoskeletal: No myalgias. Positive muscle weakness, positive for gait dysfunction, no frequent falls. positive for back pain. No neck pain. Integumentary: No wounds, no lesions. No rash or pruritus. No unusual bruising. No change in hair or nails. Neurologic: No aphasia. No facial droop. No change in mentation. No head injury. No headache. No paralysis. positive for facial paresthesia. Psychiatric: positive for depression, positive for anxiety. No mood swings. Endocrine: abnormal blood sugars. positive for weight change. PHYSICAL EXAMINATION: General: 78 year old female sitting up in bed no apparent distress. HEENT: Head is atraumatic, normocephalic, pupils were equal round reactive to light and recommendation, extraocular muscle movement were intact, sclera nonicteric, conjunctivae were pale, mucous membranes of the mouth are somewhat dry. Neck: Supple, no JVP, normal carotid upstroke bilaterally, no lymphadenopathy. Chest: Decreased breath sounds at the bases, few rhonchi, no expiratory wheezes, no chest wall tenderness, no intercostal retractions. Heart: First heart sound is normal, second heart sound is normal there is BIANCA 2/6 located at the left sternal border. Abdomen: Soft, obese nontender, nondistended, positive bowel sounds. Extremities: There is +1 edema no calf tenderness DP +2 bilaterally. Neurologic examination: Patient is awake alert and oriented X3, cranial nerves II-12 appear grossly intact, muscle power were 4 out of 5 in upper extremities and 4 out of 5 in bilateral lower extremities, deep tendon reflexes normal bilaterally. ASSESSMENT AND PLAN: 1. Severe hypovolemic hyponatremia with SIADH patient has been on. 3% sodium infusion at 25 cc an hour, will continue with that, patient will be going to the intensive care unit, her last sodium level was 115. 2. Recurrent UTI with sepsis. Urine culture, blood culture, start the patient on Azactam 1 g piggyback every 8 hours, continue Bactrim IV piggyback every 12 hours. Infectious ease consultation from Dr. Castro 3. Right middle lobe and lower lobe pneumonia. Continue patient on Azactam 2 g piggyback every 8 hours, sputum culture, blood cultures, pulmonary is following, ID is following, patient has multiple allergies which limits the antibiotic use 4. Hypertension and hypertensive cardiovascular disease. we will continue with Atenolol 50 mg po bid, Clonidine 0.2 mg 1 tabs po at bedtime, Losartan 100 mg po daily, Amlodipine 5 mg orally daily and we will continue with BP monitoring. 5. Mixed hyperlipidemia. we will continue with low cholesterol diet and exercise and weight loss, patient is not taking any statin at this time, and she refused PCSK9 inhibitor keep LDL-c 55-70 6. Diabetes Mellitus type 2. we will continue with Lantus 12 units at bedtime along with SSI and we will continue with Metformin 1000 mg po daily and Pioglitasone 30 mg po daily, BGM before each meal and at bedtime. 7. Obesity and obstructive sleep apnea and OHS. not able to tolerate CPAP. 8. Vitamin D deficiency. we will continue with vitamin d supplements. 9. Asthma. stable. 10. GERD with PUD. we will continue with Protonix 40 mg IVP daily. 11. Anxiety.we will continue with Xanax as needed. 12. Paroxysmal atrial fibrillation currently in sinus rhythm. Patient is not a candidate for anticoagulation because of recurrent GI bleed. Continue atenolol 50 mg orally twice every day monitor the patient symptoms very closely. 13. DVT Prophylaxis continue heparin 5000 units subcutaneously every 8 hours per. 14. GI Prophylaxis . we will continue with Pantoprazole 40 mg IV push daily. 15. Full code. 16 physical therapy evaluation.. 17 dialysis social worker consultation for discharge planning.. Objective - Vital Signs Vital signs: Vital Signs Temp 98.2 F 06/22/24 04:00 Pulse 59 L 06/22/24 06:00 Resp 20 06/22/24 06:00 BP 133/53 06/22/24 06:00 Pulse Ox 97 06/22/24 06:00 FiO2 Intake & Output 06/21/24 06/21/24 06/22/24 06:59 18:59 06:59 Output Total 200 905 Balance -200 -905 Output: Urine 200 905 Uretheral (Harding) 200 Other: Voiding Method Indwelling Catheter - Labs CBC & Chem 7: 06/22/24 05:46 06/22/24 15:37 Labs: Abnormal Lab Results - Last 24 Hours (Table) 06/21/24 06/21/24 06/21/24 Range/Units 03:02 03:02 07:11 WBC (3.8-10.6) k/uL RBC (3.80-5.40) m/uL Hgb (11.4-16.0) gm/dL Hct (34.0-46.0) % MCHC (31.0-37.0) g/dL Plt Count (150-450) k/uL Neutrophils # (1.3-7.7) k/uL Monocytes # (0-1.0) k/uL Sodium (137-145) mmol/L Chloride (98-107) mmol/L BUN (7-17) mg/dL Glucose (74-99) mg/dL POC Glucose (mg/dL) (70-110) mg/dL Osmolality 261 L (275-295) mOsm/kg Alkaline Phosphatase (38-126) U/L Albumin (3.5-5.0) g/dL Procalcitonin 0.77 H (0.02-0.50) ng/mL Cortisol 24.7 H (3.1-22.4) UG/DL 06/21/24 06/21/24 06/21/24 Range/Units 07:11 07:11 09:15 WBC 22.6 H (3.8-10.6) k/uL RBC 3.37 L (3.80-5.40) m/uL Hgb 8.5 L (11.4-16.0) gm/dL Hct 27.5 L (34.0-46.0) % MCHC 30.9 L (31.0-37.0) g/dL Plt Count 589 H (150-450) k/uL Neutrophils # 19.4 H (1.3-7.7) k/uL Monocytes # (0-1.0) k/uL Sodium 115 L* 114 L* (137-145) mmol/L Chloride 80 L (98-107) mmol/L BUN 18 H (7-17) mg/dL Glucose 188 H (74-99) mg/dL POC Glucose (mg/dL) (70-110) mg/dL Osmolality (275-295) mOsm/kg Alkaline Phosphatase 214 H (38-126) U/L Albumin 3.3 L (3.5-5.0) g/dL Procalcitonin (0.02-0.50) ng/mL Cortisol (3.1-22.4) UG/DL 06/21/24 06/21/24 06/21/24 Range/Units 12:01 12:14 14:06 WBC (3.8-10.6) k/uL RBC (3.80-5.40) m/uL Hgb (11.4-16.0) gm/dL Hct (34.0-46.0) % MCHC (31.0-37.0) g/dL Plt Count (150-450) k/uL Neutrophils # (1.3-7.7) k/uL Monocytes # (0-1.0) k/uL Sodium 113 L* 111 L* (137-145) mmol/L Chloride (98-107) mmol/L BUN (7-17) mg/dL Glucose (74-99) mg/dL POC Glucose (mg/dL) 292 H (70-110) mg/dL Osmolality (275-295) mOsm/kg Alkaline Phosphatase (38-126) U/L Albumin (3.5-5.0) g/dL Procalcitonin (0.02-0.50) ng/mL Cortisol (3.1-22.4) UG/DL 06/21/24 06/21/24 06/21/24 Range/Units 16:29 16:51 18:33 WBC (3.8-10.6) k/uL RBC (3.80-5.40) m/uL Hgb (11.4-16.0) gm/dL Hct (34.0-46.0) % MCHC (31.0-37.0) g/dL Plt Count (150-450) k/uL Neutrophils # (1.3-7.7) k/uL Monocytes # (0-1.0) k/uL Sodium 113 L* 114 L* (137-145) mmol/L Chloride (98-107) mmol/L BUN (7-17) mg/dL Glucose (74-99) mg/dL POC Glucose (mg/dL) 210 H (70-110) mg/dL Osmolality (275-295) mOsm/kg Alkaline Phosphatase (38-126) U/L Albumin (3.5-5.0) g/dL Procalcitonin (0.02-0.50) ng/mL Cortisol (3.1-22.4) UG/DL 06/21/24 06/21/24 06/21/24 Range/Units 20:06 20:27 22:33 WBC (3.8-10.6) k/uL RBC (3.80-5.40) m/uL Hgb (11.4-16.0) gm/dL Hct (34.0-46.0) % MCHC (31.0-37.0) g/dL Plt Count (150-450) k/uL Neutrophils # (1.3-7.7) k/uL Monocytes # (0-1.0) k/uL Sodium 114 L* 114 L* (137-145) mmol/L Chloride (98-107) mmol/L BUN (7-17) mg/dL Glucose (74-99) mg/dL POC Glucose (mg/dL) 201 H (70-110) mg/dL Osmolality (275-295) mOsm/kg Alkaline Phosphatase (38-126) U/L Albumin (3.5-5.0) g/dL Procalcitonin (0.02-0.50) ng/mL Cortisol (3.1-22.4) UG/DL 06/22/24 06/22/24 06/22/24 Range/Units 00:37 05:46 05:55 WBC 19.9 H (3.8-10.6) k/uL RBC 3.04 L (3.80-5.40) m/uL Hgb 7.6 L (11.4-16.0) gm/dL Hct 25.1 L (34.0-46.0) % MCHC 30.5 L (31.0-37.0) g/dL Plt Count 579 H (150-450) k/uL Neutrophils # 14.6 H (1.3-7.7) k/uL Monocytes # 1.1 H (0-1.0) k/uL Sodium 115 L* (137-145) mmol/L Chloride (98-107) mmol/L BUN (7-17) mg/dL Glucose (74-99) mg/dL POC Glucose (mg/dL) 120 H (70-110) mg/dL Osmolality (275-295) mOsm/kg Alkaline Phosphatase (38-126) U/L Albumin (3.5-5.0) g/dL Procalcitonin (0.02-0.50) ng/mL Cortisol (3.1-22.4) UG/DL Microbiology - Last 24 Hours (Table) 06/20/24 19:35 Urine Culture - Final Urine,Voided
[2024-06-22 20:51] LABS: Glucose,Whole Blood 245 mg/dL (70-110)
[2024-06-22] MEDS ORDERED: FUROSEMIDE 10 MG/ML 4 ML VIAL IV SCH (21:00)
[2024-06-22] MEDS: UREA 15 GM POWD.PACK PO ONE (22:04)
[2024-06-23 06:13] LABS: African American GFR (CKD) 42 (>60 ml/min/1.73 sqM); Anion Gap 6 mmol/L; Blood Urea Nitrogen 43 mg/dL (7-17); Calcium 9.2 mg/dL (8.4-10.2); Carbon Dioxide 26 mmol/L (22-30); Chloride 87 mmol/L (98-107); Glucose 133 mg/dL (74-99); Non-African American GFR(CKD) 36 (>60 ml/min/1.73 sqM); Potassium 5.4 mmol/L (3.5-5.1)
[2024-06-23 06:20] LABS: Sodium 119 mmol/L (137-145)
[2024-06-23 07:14] LABS: Glucose,Whole Blood 152 mg/dL (70-110)
[2024-06-23 08:33] LABS: HCT 23.4 % (37.2-46.3); HGB 7.5 g/dL (12.0-15.0); MCH 25.9 pg (27.0-32.0); MCHC 32.1 g/dL (32.0-37.0); MCV 80.7 FL (80.0-97.0); Mean Platelet Volume 9.9 FL (9.5-12.2); NRBC Per 100 WBC 0 X 10*3/uL (0.00-0.01); Platelet Count 551 X 10*3/uL (140-440); RDW 15.6 % (11.5-14.5); WBC 18.77 X 10*3/uL (4.50-10.00)
[2024-06-23] MEDS: FUROSEMIDE 10 MG/ML 4 ML VIAL IV STA ×2 (08:35→19:58)
[2024-06-23] MEDS: UREA 15 GM POWD.PACK PO SCH (08:36)
[2024-06-23] MEDS: TOLVAPTAN 15 MG TABLET PO ONE ×2 (08:41→19:58)
[2024-06-23] MEDS: ACETAMINOPHEN TAB 325 MG TAB PO PRN (08:47)
--- NOTE | 2024-06-23 09:49 | P.PN ---
Subjective Progress Note Date: 06/23/24 HISTORY OF PRESENT ILLNESS: This is a 78 year old female with a previous medical history signif icant for hypertension and hypertensive cardiovascular disease, hyperlipidemia, diabetes mellitus type 2, and diabetic polyneuropathy, GERD with duodenal ulcer, and obesity with obstructive sleep apnea, and obesity hypoventilation syndrome, chronic diastolic heart filure, patient was last hospitalized at [facility] about a year ago with accelerated hypertension and hypervolemic hyponatremia and was sen by cardiology and nephrology, patient was recently to be treated as an outpatient for urinary tract infection, but she has numerous allergies/limited antibiotic use, she stated that she only can use Bactrim and she was given a smaller dose due to her creatinine clearance, patient stated that she is not feeling better with that, so she ended up coming to the emergency department [facility] emergency department yesterday she was found to have severe hyponatremia with a sodium of 113 and severe hypochloremia as well, she was started on IV fluid resuscitation in the form of normal saline at 50 cc an hour, her sodium is up to 115 she continues to be severely hyponatremic, she will be admitted to the ICU, patient may need to be started on 3% hypertonic to try to improve her sodium up to like 120 nephrology consultation was obtained, I obtain serum osmolality, urine osmolality, urine sodium, cortisol level, TSH and free T4, patient also was found to have urinary tract infection, urine culture was sent blood culture was sent I started the patient on Azactam 1 g IV piggyback every 8 hours, continue Bactrim IV piggyback for now until further recommendation by ID. 06/22: Patient sitting up in chair no apparent distress, she is on room air, her oxygenation is 95%, she is complaining of increased coughing, minimal from production, chest x-ray showed evidence of possible acute infiltrate, versus atelectasis, she was started on Azactam 2 g piggyback every 8 hours, she was taken off Bactrim, she was seen in consultation by nephrology as well as by pulmonary medicine, she was started on 3%, her sodium is up to 119, I started the patient on Lasix 40 mg IV push every 12 hours, input and output and daily weight, continue fluid restriction to 1500 cc over 24 hours, follow-up with the patient very closely. 06/23: Patient sitting up in bed in no apparent distress, she continues to be on room air, oxygenation is 97%, chest x-ray showed evidence of right middle lobe and lower lobe pneumonia, this is likely aspiration pneumonia at this time, patient is having some issues with swallowing, speech therapy evaluation, continue Azactam as the patient is allergic to numerous antibiotic, pulmonary as well as ID is following, repeat sodium level today, she did receive 1 dose of Samsca yesterday, she did receive 1 dose of Lasix yesterday as well, follow-up with the patient very closely, REVIEW OF SYSTEMS: Constitutional: No documented fever, no chills, no night sweats. No weight change. Positive for weakness, fatigue or lethargy. No daytime sleepiness. HEENT: No headache. No blurred vision or double vision, no loss of vision. No loss of Hearing, no ringing in the ears, no dizziness. No nasal drainage or congestion. No epistaxis. No sore throat. Lungs: Positive for shortness of breath, positive for cough, positive for sputum production. No wheezing. Reports dyspnea with activity. Cardiovascular: No chest pain, positive for lower extremity edema. Positive for palpitations. negative for paroxysmal nocturnal dyspnea. Negative for orthopnea. No lightheadedness or dizziness. No syncopal episodes. Abdominal: Reports abdominal pain. No nausea, vomiting. No diarrhea. No constipation. No bloody or tarry stools reports loss of appetite. Genitourinary: Positive for dysuria, increased frequency, urgency. No urinary retention. Musculoskeletal: No myalgias. Positive muscle weakness, positive for gait dysfunction, no frequent falls. positive for back pain. No neck pain. Integumentary: No wounds, no lesions. No rash or pruritus. No unusual bruisi ng. No change in hair or nails. Neurologic: No aphasia. No facial droop. No change in mentation. No head injury. No headache. No paralysis. positive for facial paresthesia. Psychiatric: positive for depression, positive for anxiety. No mood swings. Endocrine: abnormal blood sugars. positive for weight change. PHYSICAL EXAMINATION: General: 78 year old female sitting up in bed no apparent distress. HEENT: Head is atraumatic, normocephalic, pupils were equal round reactive to light and recommendation, extraocular muscle movement were intact, sclera nonicteric, conjunctivae were pale, mucous membranes of the mouth are somewhat dry. Neck: Supple, no JVP, normal carotid upstroke bilaterally, no lymphadenopathy. Chest: Decreased breath sounds at the bases, few rhonchi, no expiratory wheezes, no chest wall tenderness, no intercostal retractions. Heart: First heart sound is normal, second heart sound is normal there is BIANCA 2/6 located at the left sternal border. Abdomen: Soft, obese nontender, nondistended, positive bowel sounds. Extremities: There is +1 edema no calf tenderness DP +2 bilaterally. Neurologic examination: Patient is awake alert and oriented X3, cranial nerves II-12 appear grossly intact, muscle power were 4 out of 5 in upper extremities and 4 out of 5 in bilateral lower extremities, deep tendon reflexes normal bilaterally. ASSESSMENT AND PLAN: 1. 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 Received 1 dose of Lasix yesterday 40 mg IV push, 1 dose of Samsca 7.5 mg, continue fluid restriction, repeat sodium today. Encourage oral intake. 2. Recurrent UTI with sepsis. Urine culture, blood culture, start the patient on Azactam 1 g piggyback every 8 hours, urine cultures negative so far. But she was on Bactrim as an outpatient. 3. Right middle lobe and lower lobe pneumonia likely aspiration pneumonia continue patient on Azactam 2 g piggyback every 8 hours, sputum culture, blood cultures, pulmonary is following, ID is following, patient has multiple allergi es which limits the antibiotic use 4. Hypertension and hypertensive cardiovascular disease. we will continue with Atenolol 50 mg po bid, Clonidine 0.2 mg 1 tabs po at bedtime, Losartan 100 mg po daily, Amlodipine 5 mg orally daily and we will continue with BP monitoring. 5. Mixed hyperlipidemia. we will continue with low cholesterol diet and exercise and weight loss, patient is not taking any statin at this time, and she refused PCSK9 inhibitor keep LDL-c 55-70 6. Diabetes Mellitus type 2. we will continue with Lantus 12 units at bedtime along with SSI and we will continue with Metformin 1000 mg po daily and Pioglitasone 30 mg po daily, BGM before each meal and at bedtime. 7. Obesity and obstructive sleep apnea and OHS. not able to tolerate CPAP. 8. Vitamin D deficiency. we will continue with vitamin d supplements. 9. Asthma. stable. 10. GERD with PUD. we will continue with Protonix 40 mg IVP daily. 11. Anxiety.we will continue with Xanax as needed. 12. Paroxysmal atrial fibrillation currently in sinus rhythm. Patient is not a candidate for anticoagulation because of recurrent GI bleed. Continue atenolol 50 mg orally twice every day monitor the patient symptoms very closely. 13. DVT Prophylaxis continue heparin 5000 units subcutaneously every 8 hours per. 14. GI Prophylaxis . we will continue with Pantoprazole 40 mg IV push daily. 15. Anemia multifactorial. Check iron studies, B12, folic acid, check kappa and lambda light chain serum protein electrophoresis LDH and haptoglobin. 16 dysphagia. Swallow evaluation. By speech therapy. 17. Full code. 18. mesh worker consultation for discharge planning. 19. Physical therapy evaluation Objective - Vital Signs Vital signs: Vital Signs Temp 98.0 F 06/23/24 02:00 Pulse 56 L 06/23/24 02:00 Resp 12 06/23/24 02:00 BP 120/70 06/23/24 02:00 Pulse Ox 95 06/23/24 02:00 FiO2 Intake & Output 06/22/24 06/22/24 06/23/24 06:59 18:59 06:59 Intake Total 720 480 Output Total 905 1180 1700 Balance -905 460 -1220 Weight 113.398 kg 115 kg Intake: Oral 720 480 Output: Urine 905 1180 1700 Other: Voiding Method Indwelling Catheter Indwelling Catheter - Labs CBC & Chem 7: 06/22/24 05:46 06/23/24 05:31 Labs: Abnormal Lab Results - Last 24 Hours (Table) 06/22/24 06/22/24 06/22/24 Range/Units 05:46 05:46 05:46 WBC 19.9 H (3.8-10.6) k/uL RBC 3.04 L (3.80-5.40) m/uL Hgb 7.6 L (11.4-16.0) gm/dL Hct 25.1 L (34.0-46.0) % MCHC 30.5 L (31.0-37.0) g/dL Plt Count 579 H (150-450) k/uL Neutrophils # 14.6 H (1.3-7.7) k/uL Monocytes # 1.1 H (0-1.0) k/uL Sodium 118 L* 118 L* (137-145) mmol/L Chloride 85 L (98-107) mmol/L BUN 23 H (7-17) mg/dL Creatinine 1.42 H (0.52-1.04) mg/dL POC Glucose (mg/dL) (70-110) mg/dL 06/22/24 06/22/24 06/22/24 Range/Units 07:33 09:38 15:37 WBC (3.8-10.6) k/uL RBC (3.80-5.40) m/uL Hgb (11.4-16.0) gm/dL Hct (34.0-46.0) % MCHC (31.0-37.0) g/dL Plt Count (150-450) k/uL Neutrophils # (1.3-7.7) k/uL Monocytes # (0-1.0) k/uL Sodium 118 L* 119 L* 119 L* (137-145) mmol/L Chloride (98-107) mmol/L BUN (7-17) mg/dL Creatinine (0.52-1.04) mg/dL POC Glucose (mg/dL) (70-110) mg/dL 06/22/24 06/22/24 06/22/24 Range/Units 17:05 20:46 20:50 WBC (3.8-10.6) k/uL RBC (3.80-5.40) m/uL Hgb (11.4-16.0) gm/dL Hct (34.0-46.0) % MCHC (31.0-37.0) g/dL Plt Count (150-450) k/uL Neutrophils # (1.3-7.7) k/uL Monocytes # (0-1.0) k/uL Sodium 117 L* (137-145) mmol/L Chloride (98-107) mmol/L BUN (7-17) mg/dL Creatinine (0.52-1.04) mg/dL POC Glucose (mg/dL) 202 H 245 H (70-110) mg/dL Microbiology - Last 24 Hours (Table) 06/21/24 07:11 Blood Culture - Preliminary Blood
[2024-06-23 10:13] LABS: Reticulocyte % 2.02 % (0.10-1.80)
[2024-06-23 10:25] LABS: Protein, Total 6.1 g/dL (6.2-8.2)
[2024-06-23 10:27] LABS: Basophils # (A) 0.08 X 10*3/uL (0.00-0.10); Basophils % (A) 0.4 %; Eosinophils # (A) 0.13 X 10*3/uL (0.04-0.35); Eosinophils % (A) 0.7 %; Lymphocytes # (A) 2.59 X 10*3/uL (0.90-5.00); Lymphocytes % (A) 13.8 %; Monocytes # (A) 2.01 X 10*3/uL (0.20-1.00); Monocytes % (A) 10.7 %; Neutrophils # (A) 13.51 X 10*3/uL (1.80-7.70); RBC Morphology Normal (Normal)
--- NOTE | 2024-06-23 10:52 | P.PN ---
Subjective Patient is seen in follow-up for hyponatremia. Sodium level 119 this morning. Has been receiving Samsca and IV Lasix as well as urea. Urine output has improved. Oral intake also gradually improving. Vital signs are stable. General: No acute distress. HEENT: Head exam is unremarkable. LUNGS: No audible rhonchi or wheezes. HEART: Rate and Rhythm are regular. ABDOMEN: Nontender. Obese. EXTREMITITES: 2+ edema. Objective - Vital Signs Vital signs: Vital Signs Temp 98.1 F 06/23/24 07:13 Pulse 51 L 06/23/24 07:13 Resp 18 06/23/24 07:13 BP 128/71 06/23/24 07:13 Pulse Ox 91 L 06/23/24 07:13 FiO2 Intake & Output 06/22/24 06/23/24 06/23/24 18:59 06:59 18:59 Intake Total 720 480 Output Total 1180 2000 Balance -460 -1520 Weight 113.398 kg 115 kg Intake: Oral 720 480 Output: Urine 1180 2000 Other: Voiding Method Indwelling Catheter - Labs CBC & Chem 7: 06/23/24 05:31 06/23/24 05:31 Labs: Abnormal Lab Results - Last 24 Hours (Table) 06/22/24 06/22/24 06/22/24 Range/Units 15:37 17:05 20:46 WBC (4.50-10.00) X 10*3/uL RBC (4.10-5.20) X 10*6/uL Hgb (12.0-15.0) g/dL Hct (37.2-46.3) % MCH (27.0-32.0) pg RDW (11.5-14.5) % Plt Count (140-440) X 10*3/uL Immature Gran # (0.00-0.04) X 10*3/uL Neutrophils # (1.80-7.70) X 10*3/uL Monocytes # (0.20-1.00) X 10*3/uL Retic Count (0.10-1.80) % Sodium 119 L* 117 L* (137-145) mmol/L Potassium (3.5-5.1) mmol/L Chloride (98-107) mmol/L BUN (7-17) mg/dL Creatinine (0.52-1.04) mg/dL Glucose (74-99) mg/dL POC Glucose (mg/dL) 202 H (70-110) mg/dL Total Protein (PEP) (6.2-8.2) g/dL 06/22/24 06/23/24 06/23/24 Range/Units 20:50 05:31 05:31 WBC 18.77 H (4.50-10.00) X 10*3/uL RBC 2.90 L (4.10-5.20) X 10*6/uL Hgb 7.5 L (12.0-15.0) g/dL Hct 23.4 L (37.2-46.3) % MCH 25.9 L (27.0-32.0) pg RDW 15.6 H (11.5-14.5) % Plt Count 551 H (140-440) X 10*3/uL Immature Gran # 0.45 H (0.00-0.04) X 10*3/uL Neutrophils # 13.51 H (1.80-7.70) X 10*3/uL Monocytes # 2.01 H (0.20-1.00) X 10*3/uL Retic Count (0.10-1.80) % Sodium 119 L* (137-145) mmol/L Potassium 5.4 H (3.5-5.1) mmol/L Chloride 87 L (98-107) mmol/L BUN 43 H (7-17) mg/dL Creatinine 1.38 H (0.52-1.04) mg/dL Glucose 133 H (74-99) mg/dL POC Glucose (mg/dL) 245 H (70-110) mg/dL Total Protein (PEP) (6.2-8.2) g/dL 06/23/24 06/23/24 06/23/24 Range/Units 06:24 06:24 07:13 WBC (4.50-10.00) X 10*3/uL RBC (4.10-5.20) X 10*6/uL Hgb (12.0-15.0) g/dL Hct (37.2-46.3) % MCH (27.0-32.0) pg RDW (11.5-14.5) % Plt Count (140-440) X 10*3/uL Immature Gran # (0.00-0.04) X 10*3/uL Neutrophils # (1.80-7.70) X 10*3/uL Monocytes # (0.20-1.00) X 10*3/uL Retic Count 2.02 H (0.10-1.80) % Sodium (137-145) mmol/L Potassium (3.5-5.1) mmol/L Chloride (98-107) mmol/L BUN (7-17) mg/dL Creatinine (0.52-1.04) mg/dL Glucose (74-99) mg/dL POC Glucose (mg/dL) 152 H (70-110) mg/dL Total Protein (PEP) 6.1 L (6.2-8.2) g/dL Microbiology - Last 24 Hours (Table) 06/22/24 17:09 Gram Stain - Preliminary Sputum 06/21/24 07:11 Blood Culture - Preliminary Blood Assessment and Plan Plan: Assessment: 1. 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 Sodium level 113 on admission -stable at 119 this morning. TSH normal. Urine sodium 65 and urine osmolality 586. Cortisol level 24.7. 2. UTI on antibiotics. 3. Benign hypertension. Stable. 4. Diabetes mellitus. 5. Hypomagnesemia from poor intake. Replaced. 6. Acute kidney injury secondary to vasomotor nephropathy secondary to diuresis. Creatinine stable at 1.38 today. Plan: Add urea twice daily. Samsca 7.5 mg this morning. Lasix 40 mg IV once today. Repeat sodium level this afternoon. Encouraged oral intake. Maintain fluid restriction. Hold amlodipine for systolic blood pressure less than 120.
[2024-06-23 12:05] LABS: Glucose,Whole Blood 246 mg/dL (70-110)
[2024-06-23 12:18] LABS: % Iron Saturation 4.17 (12.00-45.00); Ferritin 26.5 ng/mL (10.0-291.0)
--- NOTE | 2024-06-23 13:02 | P.PN ---
Subjective Progress Note Date: 06/23/24 Principal diagnosis: Reason for follow-up is UTI and a question of pneumonia Patient is a 78-year-old female with a past medical history significant for diabetes mellitus reflux hypertension hyperlipidemia asthma anxiety presenting to the hospital for evaluation of weakness has been diagnosed with a UTI failing outpatient therapy and the question of possible pneumonia. On today's evaluation that is 06/23/2024,the patient denies any fever or any chills, patient is breathing slightly comfortably on room air, the patient denies chest pain shortness of breath and any worsening cough, patient denies abdominal pain, no nausea vomiting or diarrhea. Patient white count is down to 18.77, creatinine is 1.38 blood and sputum cultures currently pending chest x-ray repeat persistent cardiomegaly with multifocal lung infiltrate Objective - Vital Signs Vital signs: Vital Signs Temp 97.6 F 06/23/24 12:18 Pulse 50 L 06/23/24 12:18 Resp 18 06/23/24 12:18 BP 120/68 06/23/24 12:18 Pulse Ox 94 L 06/23/24 12:18 FiO2 Intake & Output 06/22/24 06/23/24 06/23/24 18:59 06:59 18:59 Intake Total 720 480 Output Total 1180 1999 Balance -460 -1520 Weight 113.398 kg 115 kg Intake: Oral 720 480 Output: Urine 1180 1999 Other: Voiding Method Indwelling Catheter Indwelling Catheter - Exam GENERAL DESCRIPTION: An elderly male up in a chair in no distress RESPIRATORY SYSTEM: Unlabored breathing , decreased breath sounds at bases HEART: S1 S2 regular rate and rhythm , ABDOMEN: Soft , no tenderness EXTREMITIES: No edema feet - Labs CBC & Chem 7: 06/23/24 05:31 06/23/24 05:31 Labs: Abnormal Lab Results - Last 24 Hours (Table) 06/22/24 06/22/24 06/22/24 Range/Units 15:37 17:05 20:46 WBC (4.50-10.00) X 10*3/uL RBC (4.10-5.20) X 10*6/uL Hgb (12.0-15.0) g/dL Hct (37.2-46.3) % MCH (27.0-32.0) pg RDW (11.5-14.5) % Plt Count (140-440) X 10*3/uL Immature Gran # (0.00-0.04) X 10*3/uL Neutrophils # (1.80-7.70) X 10*3/uL Monocytes # (0.20-1.00) X 10*3/uL Retic Count (0.10-1.80) % Sodium 119 L* 117 L* (137-145) mmol/L Potassium (3.5-5.1) mmol/L Chloride (98-107) mmol/L BUN (7-17) mg/dL Creatinine (0.52-1.04) mg/dL Glucose (74-99) mg/dL POC Glucose (mg/dL) 202 H (70-110) mg/dL Iron (50-170) UG/DL % Saturation (12.00-45.00) Total Protein (PEP) (6.2-8.2) g/dL 06/22/24 06/23/24 06/23/24 Range/Units 20:50 05:31 05:31 WBC 18.77 H (4.50-10.00) X 10*3/uL RBC 2.90 L (4.10-5.20) X 10*6/uL Hgb 7.5 L (12.0-15.0) g/dL Hct 23.4 L (37.2-46.3) % MCH 25.9 L (27.0-32.0) pg RDW 15.6 H (11.5-14.5) % Plt Count 551 H (140-440) X 10*3/uL Immature Gran # 0.45 H (0.00-0.04) X 10*3/uL Neutrophils # 13.51 H (1.80-7.70) X 10*3/uL Monocytes # 2.01 H (0.20-1.00) X 10*3/uL Retic Count (0.10-1.80) % Sodium 119 L* (137-145) mmol/L Potassium 5.4 H (3.5-5.1) mmol/L Chloride 87 L (98-107) mmol/L BUN 43 H (7-17) mg/dL Creatinine 1.38 H (0.52-1.04) mg/dL Glucose 133 H (74-99) mg/dL POC Glucose (mg/dL) 245 H (70-110) mg/dL Iron (50-170) UG/DL % Saturation (12.00-45.00) Total Protein (PEP) (6.2-8.2) g/dL 06/23/24 06/23/24 06/23/24 Range/Units 06:24 06:24 06:24 WBC (4.50-10.00) X 10*3/uL RBC (4.10-5.20) X 10*6/uL Hgb (12.0-15.0) g/dL Hct (37.2-46.3) % MCH (27.0-32.0) pg RDW (11.5-14.5) % Plt Count (140-440) X 10*3/uL Immature Gran # (0.00-0.04) X 10*3/uL Neutrophils # (1.80-7.70) X 10*3/uL Monocytes # (0.20-1.00) X 10*3/uL Retic Count 2.02 H (0.10-1.80) % Sodium (137-145) mmol/L Potassium (3.5-5.1) mmol/L Chloride (98-107) mmol/L BUN (7-17) mg/dL Creatinine (0.52-1.04) mg/dL Glucose (74-99) mg/dL POC Glucose (mg/dL) (70-110) mg/dL Iron 16 L (50-170) UG/DL % Saturation 4.17 L (12.00-45.00) Total Protein (PEP) 6.1 L (6.2-8.2) g/dL 06/23/24 06/23/24 Range/Units 07:13 12:04 WBC (4.50-10.00) X 10*3/uL RBC (4.10-5.20) X 10*6/uL Hgb (12.0-15.0) g/dL Hct (37.2-46.3) % MCH (27.0-32.0) pg RDW (11.5-14.5) % Plt Count (140-440) X 10*3/uL Immature Gran # (0.00-0.04) X 10*3/uL Neutrophils # (1.80-7.70) X 10*3/uL Monocytes # (0.20-1.00) X 10*3/uL Retic Count (0.10-1.80) % Sodium (137-145) mmol/L Potassium (3.5-5.1) mmol/L Chloride (98-107) mmol/L BUN (7-17) mg/dL Creatinine (0.52-1.04) mg/dL Glucose (74-99) mg/dL POC Glucose (mg/dL) 152 H 246 H (70-110) mg/dL Iron (50-170) UG/DL % Saturation (12.00-45.00) Total Protein (PEP) (6.2-8.2) g/dL Microbiology - Last 24 Hours (Table) 06/22/24 17:09 Gram Stain - Preliminary Sputum 06/21/24 07:11 Blood Culture - Preliminary Blood Assessment and Plan (1) Allergy to multiple antibiotics Current Visit: Yes Status: Acute Code(s): Z88.1 - ALLERGY STATUS TO OTHER ANTIBIOTIC AGENTS SNOMED Code(s): 760380324 (2) UTI (urinary tract infection) Current Visit: Yes Status: Acute Code(s): N39.0 - URINARY TRACT INFECTION, SITE NOT SPECIFIED SNOMED Code(s): 36364657 (3) Pneumonia Current Visit: Yes Status: Acute Code(s): J18.9 - PNEUMONIA, UNSPECIFIED ORGANISM SNOMED Code(s): 748999198 Plan: 1patient presented hospital with generalized weakness no energy she also have urinary burning and frequency significantly positive UA likely concerning for symptomatic UTI from enteric gram-negative pathogen failing outpatient oral Bactrim DS therapy patient CT abdomen pelvis concerning for some multifocal infiltrate the lung bases but no significant cough clinical suspicious low for pneumonia especially of aspiration etiology but not entirely excluded 2-patient with multiple antibiotic ALLERGIES that would limit the number of antibiotic safe to use 3-blood and sputum cultures currently pending urine culture have been negative so far continue with Azactam while waiting for the culture to finalize Dictation was produced using [employer] software. please excuse any grammatical, word or spelling errors.
[2024-06-23 15:09] LABS: Free Kappa Lt Chain Qnt, Serum 6.67 mg/dL (0.33-1.94); Free Lambda Lt Chain Qnt, Seru 4.73 mg/dL (0.57-2.63)
[2024-06-23 17:12] LABS: Glucose,Whole Blood 296 mg/dL (70-110)
--- NOTE | 2024-06-23 20:08 | P.PN ---
Subjective Progress Note Date: 06/23/24 Patient is a 78-year-old female with past medical history significant for hypertension, hyperlipidemia, diabetes mellitus, heart failure, Zenker's diverticulum, and previous hospitalizations for hyponatremia. Patient presents to the emergency department last night with a chief complaint of generalized w eakness. Of note, previously having episodes of burning with urination and urinary frequency. Outpatient urine culture positive for Proteus Mirabilis, and patient was started on Bactrim on Friday by her PCP Dr. Sanchez. Workup in the emergency department significant for severe hyponatremia. Sodium was 113. Nephrology was consulted. Further workup including a chest x-ray demonstrated patchy infiltrate of opacities, more pronounced on the right lung menon. Abdomen/pelvis CT redemonstrates patchy nodular opacities partially visualized in the lower lungs, concerning for pneumonia. Fluid distention of the distal thoracic esophagus consistent with reflux. No acute abnormality in the abdomen/pelvis. CBC: WBC count 24.2, hemoglobin 0.6, platelets 585. CMP: Sodium 113, potassium 5, chloride 78, serum bicarb 27, BUN 20, creatinine 1.03, glucose 322. Lactic 1.6. Magnesium 1.2. LFTs unremarkable. NT proBNP 406. TSH 2.8. Urinalysis positive for pyuria and bacteriuria. Viral screen negative for influenza, RSV, COVID. Patient currently being seen in the emergency department room 28. She is awake and alert and oriented x 3. On room air. Generally weak and requires assistance to sit up in bed. Denies any shortness of breath, cough, sputum production, hemoptysis, chest pain. Denies fevers or chills. Denies any sick contacts. She states that her sodium is always low. She has been taking Bactrim for her UTI and has increased her water intake. Appetite has been good. Denies any nausea or vomiting or diarrhea. Endorses some lower extremity swelling. Does take Lasix on an outpatient basis, 60 mg twice a day. No confusion, headaches, seizures. Normal saline infusing at 50 mL/h. 06/22/2024, the patient remains on room air oxygen. The patient was taken off the hypertonic saline solution and sodium levels at 119 and the patient will be given a dose of Samsca. Potassium is at 5.1. BUN is 23 with a creatinine of 1.4. The patient sustained an acute kidney injury. The white cell count of 19.9 with a hemoglobin 7.6. She has chronic dysphagia and she also had a right sided pulmonary infiltrates consistent with pneumonia. Repeat chest x-ray from today shows cardiomegaly with multifocal right-sided pulmonary infiltrate without any significant change. The patient is currently off Bactrim due to underlying acute kidney injury. Start the patient on clindamycin and this was subsequently discontinued. Patient remains on aztreonam. Blood cultures are s till pending. Urine culture is negative. On 06/23/2024, the patient's sodium level is up to 120. Creatinine is down to 1.3. The white cell count remains elevated at 18.7 with a hemoglobin 7.5. She remains on IV aztreonam. Sputum culture still pending. Blood cultures negative. No new complaints. She remains on room air oxygen. Objective - Vital Signs Vital signs: Vital Signs Temp 97.8 F 06/23/24 19:57 Pulse 53 L 06/23/24 19:57 Resp 19 06/23/24 19:57 BP 122/76 06/23/24 19:57 Pulse Ox 94 L 06/23/24 19:57 FiO2 Intake & Output 06/23/24 06/23/24 06/24/24 06:59 18:59 06:59 Intake Total 480 240 Output Total 1999 1300 Balance -1520 -1060 Weight 115 kg Intake: Oral 480 240 Output: Urine 1999 1300 Other: Voiding Method Indwelling Catheter Indwelling Catheter # Bowel Movements 1 - Exam GENERAL EXAM: Alert, morbidly obese 78-year-old white female, comfortable in no apparent distress. HEAD: Normocephalic and atraumatic EYES: Normal reaction of pupils, equal size. NOSE: Clear with pink turbinates. THROAT: No erythema or exudates. NECK: No masses, no JVD. CHEST: No chest wall deformity. LUNGS: Equal air entry with right lung inspiratory crackles. On room air. No conversational dyspnea or accessory muscle use.. CVS: S1 and S2 normal with no audible murmur, regular rhythm. No extra heart sounds ABDOMEN: No hepatosplenomegaly, active bowel sounds, no guarding or rigidity. SPINE: No scoliosis or deformity SKIN: No rashes CENTRAL NERVOUS SYSTEM: No focal deficits, tone is normal in all 4 extremities. EXTREMITIES: There is bilateral lower extremity nonpitting edema. No clubbing or cyanosis. Peripheral pulses are intact. - Labs CBC & Chem 7: 06/23/24 05:31 06/23/24 17:15 Labs: Abnormal Lab Results - Last 24 Hours (Table) 06/22/24 06/22/24 06/23/24 Range/Units 20:46 20:50 05:31 WBC 18.77 H (4.50-10.00) X 10*3/uL RBC 2.90 L (4.10-5.20) X 10*6/uL Hgb 7.5 L (12.0-15.0) g/dL Hct 23.4 L (37.2-46.3) % MCH 25.9 L (27.0-32.0) pg RDW 15.6 H (11.5-14.5) % Plt Count 551 H (140-440) X 10*3/uL Immature Gran # 0.45 H (0.00-0.04) X 10*3/uL Neutrophils # 13.51 H (1.80-7.70) X 10*3/uL Monocytes # 2.01 H (0.20-1.00) X 10*3/uL Retic Count (0.10-1.80) % Sodium 117 L* (137-145) mmol/L Potassium (3.5-5.1) mmol/L Chloride (98-107) mmol/L BUN (7-17) mg/dL Creatinine (0.52-1.04) mg/dL Glucose (74-99) mg/dL POC Glucose (mg/dL) 245 H (70-110) mg/dL Iron (50-170) UG/DL % Saturation (12.00-45.00) Total Protein (PEP) (6.2-8.2) g/dL Free [place] LC, Quant (0.33-1.94) mg/dL Free Lambda LC, Quant (0.57-2.63) mg/dL 06/23/24 06/23/24 06/23/24 Range/Units 05:31 06:24 06:24 WBC (4.50-10.00) X 10*3/uL RBC (4.10-5.20) X 10*6/uL Hgb (12.0-15.0) g/dL Hct (37.2-46.3) % MCH (27.0-32.0) pg RDW (11.5-14.5) % Plt Count (140-440) X 10*3/uL Immature Gran # (0.00-0.04) X 10*3/uL Neutrophils # (1.80-7.70) X 10*3/uL Monocytes # (0.20-1.00) X 10*3/uL Retic Count 2.02 H (0.10-1.80) % Sodium 119 L* (137-145) mmol/L Potassium 5.4 H (3.5-5.1) mmol/L Chloride 87 L (98-107) mmol/L BUN 43 H (7-17) mg/dL Creatinine 1.38 H (0.52-1.04) mg/dL Glucose 133 H (74-99) mg/dL POC Glucose (mg/dL) (70-110) mg/dL Iron 16 L (50-170) UG/DL % Saturation 4.17 L (12.00-45.00) Total Protein (PEP) (6.2-8.2) g/dL Free [place] LC, Quant (0.33-1.94) mg/dL Free Lambda LC, Quant (0.57-2.63) mg/dL 06/23/24 06/23/24 06/23/24 Range/Units 06:24 06:24 07:13 WBC (4.50-10.00) X 10*3/uL RBC (4.10-5.20) X 10*6/uL Hgb (12.0-15.0) g/dL Hct (37.2-46.3) % MCH (27.0-32.0) pg RDW (11.5-14.5) % Plt Count (140-440) X 10*3/uL Immature Gran # (0.00-0.04) X 10*3/uL Neutrophils # (1.80-7.70) X 10*3/uL Monocytes # (0.20-1.00) X 10*3/uL Retic Count (0.10-1.80) % Sodium (137-145) mmol/L Potassium (3.5-5.1) mmol/L Chloride (98-107) mmol/L BUN (7-17) mg/dL Creatinine (0.52-1.04) mg/dL Glucose (74-99) mg/dL POC Glucose (mg/dL) 152 H (70-110) mg/dL Iron (50-170) UG/DL % Saturation (12.00-45.00) Total Protein (PEP) 6.1 L (6.2-8.2) g/dL Free [place] LC, Quant 6.67 H (0.33-1.94) mg/dL Free Lambda LC, Quant 4.73 H (0.57-2.63) mg/dL 06/23/24 06/23/24 06/23/24 Range/Units 12:04 12:55 17:10 WBC (4.50-10.00) X 10*3/uL RBC (4.10-5.20) X 10*6/uL Hgb (12.0-15.0) g/dL Hct (37.2-46.3) % MCH (27.0-32.0) pg RDW (11.5-14.5) % Plt Count (140-440) X 10*3/uL Immature Gran # (0.00-0.04) X 10*3/uL Neutrophils # (1.80-7.70) X 10*3/uL Monocytes # (0.20-1.00) X 10*3/uL Retic Count (0.10-1.80) % Sodium 121 L (137-145) mmol/L Potassium (3.5-5.1) mmol/L Chloride (98-107) mmol/L BUN (7-17) mg/dL Creatinine (0.52-1.04) mg/dL Glucose (74-99) mg/dL POC Glucose (mg/dL) 246 H 296 H (70-110) mg/dL Iron (50-170) UG/DL % Saturation (12.00-45.00) Total Protein (PEP) (6.2-8.2) g/dL Free [place] LC, Quant (0.33-1.94) mg/dL Free Lambda LC, Quant (0.57-2.63) mg/dL 06/23/24 Range/Units 17:15 WBC (4.50-10.00) X 10*3/uL RBC (4.10-5.20) X 10*6/uL Hgb (12.0-15.0) g/dL Hct (37.2-46.3) % MCH (27.0-32.0) pg RDW (11.5-14.5) % Plt Count (140-440) X 10*3/uL Immature Gran # (0.00-0.04) X 10*3/uL Neutrophils # (1.80-7.70) X 10*3/uL Monocytes # (0.20-1.00) X 10*3/uL Retic Count (0.10-1.80) % Sodium 120 L (137-145) mmol/L Potassium (3.5-5.1) mmol/L Chloride (98-107) mmol/L BUN (7-17) mg/dL Creatinine (0.52-1.04) mg/dL Glucose (74-99) mg/dL POC Glucose (mg/dL) (70-110) mg/dL Iron (50-170) UG/DL % Saturation (12.00-45.00) Total Protein (PEP) (6.2-8.2) g/dL Free [place] LC, Quant (0.33-1.94) mg/dL Free Lambda LC, Quant (0.57-2.63) mg/dL Microbiology - Last 24 Hours (Table) 06/21/24 07:11 Blood Culture - Preliminary Blood 06/22/24 17:09 Gram Stain - Preliminary Sputum Assessment and Plan Assessment: Severe hyponatremia, sodium is up to 120. Received Samsca and Lasix Acute kidney injury, could be related to Bactrim, improving Generalized weakness, secondary to above History of heart failure with preserved ejection fraction Patchy multifocal infiltrates/opacities, more pronounced on the right lung menon, concerning for multifocal pneumonia. Consider aspiration pneumonia as the patient has chronic difficulties with swallowing/Zenker's diverticulum Acute leukocytosis Recent outpatient treatment for UTI with Bactrim Multiple medication allergies Hypomagnesemia, replaced Anemia, monitor for blood loss Hypertension History of hyperlipidemia Diabetes mellitus type 2, with hyperglycemia History of dysphagia with Zenker's diverticulum History of asthma, stable and inactive Morbid obesity, with a BMI of 41.6 kg/m Plan: Remains on room air oxygen Follow-up chest x-ray in a.m. Discontinuing the Bactrim Fluid restriction Monitor sodium level IV aztreonam Check procalcitonin level is at 0.77 Will follow-up. Cultures are negative thus far.
[2024-06-23 20:29] LABS: Glucose,Whole Blood 248 mg/dL (70-110)
[2024-06-24] MEDS ORDERED: ZINC OXIDE PASTE (Z-GUARD) 1 APPLIC TOPICAL PRN (04:48)
[2024-06-24 07:22] LABS: Glucose,Whole Blood 142 mg/dL (70-110)
--- NOTE | 2024-06-24 08:26 | XR ---
EXAMINATION TYPE: XR chest 1V DATE OF EXAM: 06/24/2024 CLINICAL INDICATION: Female, 78 years old with history of Pneumonia follow-up, progress study. TECHNIQUE: Single AP portable upright view of the chest is obtained. COMPARISON: Chest x-ray from 2 days earlier FINDINGS: Persistent cardiomegaly without evidence of thoracic aorta. Persistent increased markings particularly throughout the right lung. Osseous structures are intact. No new acute pulmonary process identified. IMPRESSION: Cardiomegaly with multifocal right lung opacities could reflect acute infiltrates and/or scarring. No significant change from most recent study. [facility], , 06/24/2024 8:24 AM
[2024-06-24 08:49] LABS: Calcium 9.4 mg/dL (8.7-10.3); Carbon Dioxide 24.4 mmol/L (21.6-31.8); Chloride 88 mmol/L (96-109); Glucose 133 mg/dL (70-110); Magnesium 1.9 mg/dL (1.5-2.4); Potassium 5.4 mmol/L (3.5-5.5); Sodium 124 mmol/L (135-145)
--- NOTE | 2024-06-24 11:07 | P.PN ---
Subjective Patient is seen in follow-up for hyponatremia. Sodium level 124 this morning. Has been receiving Samsca and IV Lasix as well as urea. Nonoliguric. Oral intake also gradually improving. Creatinine 1.6. Vital signs are stable. General: No acute distress. HEENT: Head exam is unremarkable. LUNGS: No audible rhonchi or wheezes. HEART: Rate and Rhythm are regular. ABDOMEN: Nontender. Obese. EXTREMITITES: 2+ edema. Objective - Vital Signs Vital signs: Vital Signs Temp 97.5 F L 06/24/24 07:20 Pulse 58 L 06/24/24 07:20 Resp 18 06/24/24 07:20 BP 118/68 06/24/24 07:20 Pulse Ox 97 06/24/24 07:20 FiO2 Intake & Output 06/23/24 06/24/24 06/24/24 18:59 06:59 18:59 Intake Total 240 420 250 Output Total 1300 1300 900 Balance -1060 -880 -650 Weight 115.5 kg Intake: Intake, IV Titration 100 Amount Aztreonam 2 gm In Sodium 100 Chloride 0.9% 100 ml @ 33 .34 mls/hr IVPB Q8HR [facility] Rx#:[id number] Oral 240 320 250 Output: Urine 1300 1300 900 Other: Voiding Method Indwelling Catheter Indwelling Catheter # Bowel Movements 1 1 - Labs CBC & Chem 7: 06/23/24 05:31 06/24/24 03:30 Labs: Abnormal Lab Results - Last 24 Hours (Table) 06/23/24 06/23/24 06/23/24 Range/Units 06:24 06:24 12:04 Sodium (137-145) mmol/L Chloride (96-109) mmol/L BUN (9.0-27.0) mg/dL Creatinine (0.6-1.5) mg/dL Est GFR (CKD-EPI) (>=60) BUN/Creatinine Ratio (12.00-20.00) Ratio Glucose (70-110) mg/dL POC Glucose (mg/dL) 246 H (70-110) mg/dL Iron 16 L (50-170) UG/DL % Saturation 4.17 L (12.00-45.00) Free [place] LC, Quant 6.67 H (0.33-1.94) mg/dL Free [place]ambda LC, Quant 4.73 H (0.57-2.63) mg/dL 06/23/24 06/23/24 06/23/24 Range/Units 12:55 17:10 17:15 Sodium 121 L 120 L (137-145) mmol/L Chloride (96-109) mmol/L BUN (9.0-27.0) mg/dL Creatinine (0.6-1.5) mg/dL Est GFR (CKD-EPI) (>=60) BUN/Creatinine Ratio (12.00-20.00) Ratio Glucose (70-110) mg/dL POC Glucose (mg/dL) 296 H (70-110) mg/dL Iron (50-170) UG/DL % Saturation (12.00-45.00) Free [place] LC, Quant (0.33-1.94) mg/dL Free [place]ambda LC, Quant (0.57-2.63) mg/dL 06/23/24 06/24/24 06/24/24 Range/Units 20:22 03:30 07:21 Sodium 124 L (137-145) mmol/L Chloride 88 L (96-109) mmol/L BUN 68.0 H (9.0-27.0) mg/dL Creatinine 1.6 H (0.6-1.5) mg/dL Est GFR (CKD-EPI) 33 L (>=60) BUN/Creatinine Ratio 42.50 H (12.00-20.00) Ratio Glucose 133 H (70-110) mg/dL POC Glucose (mg/dL) 248 H 142 H (70-110) mg/dL Iron (50-170) UG/DL % Saturation (12.00-45.00) Free Stagecoach LC, Quant (0.33-1.94) mg/dL Free Lambda LC, Quant (0.57-2.63) mg/dL Microbiology - Last 24 Hours (Table) 06/21/24 07:11 Blood Culture - Preliminary Blood Assessment and Plan Plan: Assessment: 1. 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 Sodium level 113 on admission -124 this morning. TSH normal. Urine sodium 65 and urine osmolality 586. Cortisol level 24.7. 2. UTI on antibiotics. 3. Benign hypertension. Stable. 4. Diabetes mellitus. 5. Hypomagnesemia from poor intake. Replaced. Improved. 6. Acute kidney injury secondary to vasomotor nephropathy secondary to d iuresis. Creatinine 1.6 today. Plan: Maintain urea twice daily. Repeat Samsca 15 mg once today. Lasix 40 mg IV once today. Repeat labs in the morning. Encouraged oral intake. Maintain fluid restriction. Hold amlodipine for systolic blood pressure less than 120. Workup for malignancy was discussed with her primary attending physician. CT scan this admission does not show any obvious malignancy. Check PTH related peptide.
[2024-06-24 12:14] LABS: Glucose,Whole Blood 226 mg/dL (70-110)
--- NOTE | 2024-06-24 12:35 | P.PN ---
Subjective Progress Note Date: 06/24/24 HISTORY OF PRESENT ILLNESS: This is a 78 year old female with a previous medical history signif icant for hypertension and hypertensive cardiovascular disease, hyperlipidemia, diabetes mellitus type 2, and diabetic polyneuropathy, GERD with duodenal ulcer, and obesity with obstructive sleep apnea, and obesity hypoventilation syndrome, chronic diastolic heart filure, patient was last hospitalized at [facility] about a year ago with accelerated hypertension and hypervolemic hyponatremia and was sen by cardiology and nephrology, patient was recently to be treated as an outpatient for urinary tract infection, but she has numerous allergies/limited antibiotic use, she stated that she only can use Bactrim and she was given a smaller dose due to her creatinine clearance, patient stated that she is not feeling better with that, so she ended up coming to the emergency department [facility] emergency department yesterday she was found to have severe hyponatremia with a sodium of 113 and severe hypochloremia as well, she was started on IV fluid resuscitation in the form of normal saline at 50 cc an hour, her sodium is up to 115 she continues to be severely hyponatremic, she will be admitted to the ICU, patient may need to be started on 3% hypertonic to try to improve her sodium up to like 120 nephrology consultation was obtained, I obtain serum osmolality, urine osmolality, urine sodium, cortisol level, TSH and free T4, patient also was found to have urinary tract infection, urine culture was sent blood culture was sent I started the patient on Azactam 1 g IV piggyback every 8 hours, continue Bactrim IV piggyback for now until further recommendation by ID. 06/22: Patient sitting up in chair no apparent distress, she is on room air, her oxygenation is 95%, she is complaining of increased coughing, minimal from production, chest x-ray showed evidence of possible acute infiltrate, versus atelectasis, she was started on Azactam 2 g piggyback every 8 hours, she was taken off Bactrim, she was seen in consultation by nephrology as well as by pulmonary medicine, she was started on 3%, her sodium is up to 119, I started the patient on Lasix 40 mg IV push every 12 hours, input and output and daily weight, continue fluid restriction to 1500 cc over 24 hours, follow-up with the patient very closely. 06/23: Patient sitting up in bed in no apparent distress, she continues to be on room air, oxygenation is 97%, chest x-ray showed evidence of right middle lobe and lower lobe pneumonia, this is likely aspiration pneumonia at this time, patient is having some issues with swallowing, speech therapy evaluation, continue Azactam as the patient is allergic to numerous antibiotic, pulmonary as well as ID is following, repeat sodium level today, she did receive 1 dose of Samsca yesterday, she did receive 1 dose of Lasix yesterday as well, follow-up with the patient very closely, 06/24: Patient is sitting up in recliner chair in no apparent distress, she ambulated using her walker, she continues to be on Azactam 2 g piggyback every 8 hours, she has been responding very well to the treatment plan, her sodium is up to 124, continue fluid restriction, she did receive Samsca as well as Lasix, repeat sodium tomorrow morning, continue follow-up with the patient very closel y, the plan is for the patient to go home with home health care. REVIEW OF SYSTEMS: Constitutional: No documented fever, no chills, no night sweats. No weight change. Positive for weakness, fatigue or lethargy. No daytime sleepiness. HEENT: No headache. No blurred vision or double vision, no loss of vision. No loss of Hearing, no ringing in the ears, no dizziness. No nasal drainage or congestion. No epistaxis. No sore throat. Lungs: Positive for shortness of breath, positive for cough, positive for sputum production. No wheezing. Reports dyspnea with activity. Cardiovascular: No chest pain, positive for lower extremity edema. Positive for palpitations. negative for paroxysmal nocturnal dyspnea. Negative for orthopnea. No lightheadedness or dizziness. No syncopal episodes. Abdominal: Reports abdominal pain. No nausea, vomiting. No diarrhea. No constipation. No bloody or tarry stools reports loss of appetite. Genitourinary: Positive for dysuria, increased frequency, urgency. No urinary retention. Musculoskeletal: No myalgias. Positive muscle weakness, positive for gait dysfunction, no frequent falls. positive for back pain. No neck pain. Integumentary: No wounds, no lesions. No rash or pruritus. No unusual bruising. No change in hair or nails. Neurologic: No aphasia. No facial droop. No change in mentation. No head injury. No headache. No paralysis. positive for facial paresthesia. Psychiatric: positive for depression, positive for anxiety. No mood swings. Endocrine: abnormal blood sugars. positive for weight change. PHYSICAL EXAMINATION: General: 78 year old female sitting up in bed no apparent distress. HEENT: Head is atraumatic, normocephalic, pupils were equal round reactive to light and recommendation, extraocular muscle movement were intact, sclera nonicteric, conjunctivae were pale, mucous membranes of the mouth are somewhat dry. Neck: Supple, no JVP, normal carotid upstroke bilaterally, no lymphadenopathy. Chest: Decreased breath sounds at the bases, few rhonchi, no expiratory wheezes, no chest wall tenderness, no intercostal retractions. Heart: First heart sound is normal, second heart sound is normal there is BIANCA 2/6 located at the left sternal border. Abdomen: Soft, obese nontender, nondistended, positive bowel sounds. Extremities: There is +1 edema no calf tenderness DP +2 bilaterally. Neurologic examination: Patient is awake alert and oriented X3, cranial nerves II-12 appear grossly intact, muscle power were 4 out of 5 in upper extremities and 4 out of 5 in bilateral lower extremities, deep tendon reflexes normal bilaterally. ASSESSMENT AND PLAN: 1. 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 Received 1 dose of Lasix yesterday 40 mg IV push, 1 dose of Samsca 7.5 mg, continue fluid restriction, repeat sodium t [place]. Encourage oral intake. Sodium today 124 2. Recurrent UTI with sepsis. Urine culture, blood culture, start the patient on Azactam 1 g piggyback every 8 hours, urine cultures negative so far. But she was on Bactrim as an outpatient. 3. Right middle lobe and lower lobe pneumonia likely aspiration pneumonia continue patient on Azactam 2 g piggyback every 8 hours, sputum culture, blood cultures, pulmonary is following, ID is following, patient has multiple allergies which limits the antibiotic use 4. Hypertension and hypertensive cardiovascular disease. we will continue with Atenolol 50 mg po bid, Clonidine 0.2 mg 1 tabs po at bedtime, Losartan 100 mg po daily, Amlodipine 5 mg orally daily and we will continue with BP monitoring. 5. Mixed hyperlipidemia. we will continue with low cholesterol diet and exercise and weight loss, patient is not taking any statin at this time, and she refused PCSK9 inhibitor keep LDL-c 55-70 6. Diabetes Mellitus type 2. we will continue with Lantus 12 units at bedtime along with SSI and we will continue with Metformin 1000 mg po daily and Piog litasone 30 mg po daily, BGM before each meal and at bedtime. 7. Obesity and obstructive sleep apnea and OHS. not able to tolerate CPAP. 8. Vitamin D deficiency. we will continue with vitamin d supplements. 9. Asthma. stable. 10. GERD with PUD. we will continue with Protonix 40 mg IVP daily. 11. Anxiety.we will continue with Xanax as needed. 12. Paroxysmal atrial fibrillation currently in sinus rhythm. Patient is not a candidate for anticoagulation because of recurrent GI bleed. Continue atenolol 50 mg orally twice every day monitor the patient symptoms very closely. 13. DVT Prophylaxis continue heparin 5000 units subcutaneously every 8 hours per. 14. GI Prophylaxis . we will continue with Pantoprazole 40 mg IV push daily. 15. Anemia multifactorial. Check iron studies, B12, folic acid, check kappa and lambda light chain serum protein electrophoresis LDH and haptoglobin. 16 dysphagia. Swallow evaluation. By speech therapy. 17. Full code. 18. family preservation worker consultation for discharge planning. 19. Physical therapy evaluation 20. Hopefully home in the next 1 or 2 days. Objective - Vital Signs Vital signs: Vital Signs Temp 97.5 F L 06/24/24 07:20 Pulse 58 L 06/24/24 07:20 Resp 18 06/24/24 07:20 BP 118/68 06/24/24 07:20 Pulse Ox 97 06/24/24 07:20 FiO2 Intake & Output 06/23/24 06/24/24 06/24/24 18:59 06:59 18:59 Intake Total 240 420 250 Output Total 1300 1300 Balance -1060 -880 250 Weight 115.5 kg Intake: Intake, IV Titration 100 Amount Aztreonam 2 gm In Sodium 100 Chloride 0.9% 100 ml @ 33 .34 mls/hr IVPB Q8HR [facility] Rx#:[id number] Oral 240 320 250 Output: Urine 1300 1300 Other: Voiding Method Indwelling Catheter Indwelling Catheter # Bowel Movements 1 - Labs CBC & Chem 7: 06/23/24 05:31 06/24/24 03:30 Labs: Abnormal Lab Results - Last 24 Hours (Table) 06/23/24 06/23/24 06/23/24 Range/Units 05:31 06:24 06:24 Immature Gran # 0.45 H (0.00-0.04) X 10*3/uL Neutrophils # 13.51 H (1.80-7.70) X 10*3/uL Monocytes # 2.01 H (0.20-1.00) X 10*3/uL Retic Count 2.02 H (0.10-1.80) % Sodium (137-145) mmol/L Chloride (96-109) mmol/L BUN (9.0-27.0) mg/dL Creatinine (0.6-1.5) mg/dL Est GFR (CKD-EPI) (>=60) BUN/Creatinine Ratio (12.00-20.00) Ratio Glucose (70-110) mg/dL POC Glucose (mg/dL) (70-110) mg/dL Iron 16 L (50-170) UG/DL % Saturation 4.17 L (12.00-45.00) Total Protein (PEP) (6.2-8.2) g/dL Free [place] LC, Quant (0.33-1.94) mg/dL Free Lambda LC, Quant (0.57-2.63) mg/dL 06/23/24 06/23/24 06/23/24 Range/Units 06:24 06:24 12:04 Immature Gran # (0.00-0.04) X 10*3/uL Neutrophils # (1.80-7.70) X 10*3/uL Monocytes # (0.20-1.00) X 10*3/uL Retic Count (0.10-1.80) % Sodium (137-145) mmol/L Chloride (96-109) mmol/L BUN (9.0-27.0) mg/dL Creatinine (0.6-1.5) mg/dL Est GFR (CKD-EPI) (>=60) BUN/Creatinine Ratio (12.00-20.00) Ratio Glucose (70-110) mg/dL POC Glucose (mg/dL) 246 H (70-110) mg/dL Iron (50-170) UG/DL % Saturation (12.00-45.00) Total Protein (PEP) 6.1 L (6.2-8.2) g/dL Free [place] LC, Quant 6.67 H (0.33-1.94) mg/dL Free Lambda LC, Quant 4.73 H (0.57-2.63) mg/dL 06/23/24 06/23/24 06/23/24 Range/Units 12:55 17:10 17:15 Immature Gran # (0.00-0.04) X 10*3/uL Neutrophils # (1.80-7.70) X 10*3/uL Monocytes # (0.20-1.00) X 10*3/uL Retic Count (0.10-1.80) % Sodium 121 L 120 L (137-145) mmol/L Chloride (96-109) mmol/L BUN (9.0-27.0) mg/dL Creatinine (0.6-1.5) mg/dL Est GFR (CKD-EPI) (>=60) BUN/Creatinine Ratio (12.00-20.00) Ratio Glucose (70-110) mg/dL POC Glucose (mg/dL) 296 H (70-110) mg/dL Iron (50-170) UG/DL % Saturation (12.00-45.00) Total Protein (PEP) (6.2-8.2) g/dL Free [place] LC, Quant (0.33-1.94) mg/dL Free Lambda LC, Quant (0.57-2.63) mg/dL 06/23/24 06/24/24 06/24/24 Range/Units 20:22 03:30 07:21 Immature Gran # (0.00-0.04) X 10*3/uL Neutrophils # (1.80-7.70) X 10*3/uL Monocytes # (0.20-1.00) X 10*3/uL Retic Count (0.10-1.80) % Sodium 124 L (137-145) mmol/L Chloride 88 L (96-109) mmol/L BUN 68.0 H (9.0-27.0) mg/dL Creatinine 1.6 H (0.6-1.5) mg/dL Est GFR (CKD-EPI) 33 L (>=60) BUN/Creatinine Ratio 42.50 H (12.00-20.00) Ratio Glucose 133 H (70-110) mg/dL POC Glucose (mg/dL) 248 H 142 H (70-110) mg/dL Iron (50-170) UG/DL % Saturation (12.00-45.00) Total Protein (PEP) (6.2-8.2) g/dL Free [place] LC, Quant (0.33-1.94) mg/dL Free [place]ambda LC, Quant (0.57-2.63) mg/dL Microbiology - Last 24 Hours (Table) 06/21/24 07:11 Blood Culture - Preliminary Blood 06/22/24 17:09 Gram Stain - Preliminary Sputum
[2024-06-24] MEDS: FUROSEMIDE 10 MG/ML 4 ML VIAL IV STA (12:57)
[2024-06-24] MEDS: TOLVAPTAN 15 MG TABLET PO ONE (12:57)
--- NOTE | 2024-06-24 15:31 | P.PN ---
Subjective Progress Note Date: 06/24/24 Principal diagnosis: Reason for follow-up is UTI and a question of pneumonia Patient is a 78-year-old female with a past medical history significant for diabetes mellitus reflux hypertension hyperlipidemia asthma anxiety presenting to the hospital for evaluation of weakness has been diagnosed with a UTI failing outpatient therapy and the question of possible pneumonia. On today's evaluation that is 06/24/2024,the patient remains to be afebrile, patient is on room air not requiring supplemental oxygen and denies any shortness of breath no chest pain did have occasional dry cough no nausea vomiting no abdominal pain or diarrhea. Patient did have creatinine 1.6 blood and sputum cultures currently pending Objective - Vital Signs Vital signs: Vital Signs Temp 97.4 F L 06/24/24 12:11 Pulse 47 L 06/24/24 12:11 Resp 18 06/24/24 12:11 BP 135/72 06/24/24 12:11 Pulse Ox 97 06/24/24 12:11 FiO2 Intake & Output 06/23/24 06/24/24 06/24/24 18:59 06:59 18:59 Intake Total 240 420 490 Output Total 1300 1300 900 Balance -1060 -880 -410 Weight 115.5 kg Intake: Intake, IV Titration 100 Amount Aztreonam 2 gm In Sodium 100 Chloride 0.9% 100 ml @ 33 .34 mls/hr IVPB Q8HR [facility] Rx#:[id number] Oral 240 320 490 Output: Urine 1300 1300 900 Other: Voiding Method Indwelling Catheter Indwelling Catheter Indwelling Catheter # Bowel Movements 1 1 - Exam GENERAL DESCRIPTION: An elderly male up in a chair in no distress RESPIRATORY SYSTEM: Unlabored breathing , decreased breath sounds at bases HEART: S1 S2 regular rate and rhythm , ABDOMEN: Soft , no tenderness EXTREMITIES: No edema feet - Labs CBC & Chem 7: 06/23/24 05:31 06/24/24 03:30 Labs: Abnormal Lab Results - Last 24 Hours (Table) 06/23/24 06/23/24 06/23/24 Range/Units 06:24 17:10 17:15 Sodium 120 L (137-145) mmol/L Chloride (96-109) mmol/L BUN (9.0-27.0) mg/dL Creatinine (0.6-1.5) mg/dL Est GFR (CKD-EPI) (>=60) BUN/Creatinine Ratio (12.00-20.00) Ratio Glucose (70-110) mg/dL POC Glucose (mg/dL) 296 H (70-110) mg/dL Free [place] LC, Quant 6.67 H (0.33-1.94) mg/dL Free Lambda LC, Quant 4.73 H (0.57-2.63) mg/dL 06/23/24 06/24/24 06/24/24 Range/Units 20:22 03:30 07:21 Sodium 124 L (137-145) mmol/L Chloride 88 L (96-109) mmol/L BUN 68.0 H (9.0-27.0) mg/dL Creatinine 1.6 H (0.6-1.5) mg/dL Est GFR (CKD-EPI) 33 L (>=60) BUN/Creatinine Ratio 42.50 H (12.00-20.00) Ratio Glucose 133 H (70-110) mg/dL POC Glucose (mg/dL) 248 H 142 H (70-110) mg/dL Free [place] LC, Quant (0.33-1.94) mg/dL Free Lambda LC, Quant (0.57-2.63) mg/dL 06/24/24 Range/Units 12:12 Sodium (137-145) mmol/L Chloride (96-109) mmol/L BUN (9.0-27.0) mg/dL Creatinine (0.6-1.5) mg/dL Est GFR (CKD-EPI) (>=60) BUN/Creatinine Ratio (12.00-20.00) Ratio Glucose (70-110) mg/dL POC Glucose (mg/dL) 226 H (70-110) mg/dL Free [place] LC, Quant (0.33-1.94) mg/dL Free Lambda LC, Quant (0.57-2.63) mg/dL Microbiology - Last 24 Hours (Table) 06/21/24 07:11 Blood Culture - Preliminary Blood 06/22/24 17:09 Gram Stain - Preliminary Sputum Sputum Culture - Preliminary Assessment and Plan (1) Allergy to multiple antibiotics Current Visit: Yes Status: Acute Code(s): Z88.1 - ALLERGY STATUS TO OTHER ANTIBIOTIC AGENTS SNOMED Code(s): 060363295 (2) UTI (urinary tract infection) Current Visit: Yes Status: Acute Code(s): N39.0 - URINARY TRACT INFECTION, SITE NOT SPECIFIED SNOMED Code(s): 89506783 (3) Pneumonia Current Visit: Yes Status: Acute Code(s): J18.9 - PNEUMONIA, UNSPECIFIED ORGANISM SNOMED Code(s): 749955169 Plan: 1patient presented hospital with generalized weakness no energy she also have urinary burning and frequency significantly positive UA likely concerning for symptomatic UTI from enteric gram-negative pathogen failing outpatient oral Bactrim DS therapy patient CT abdomen pelvis concerning for some multifocal infiltrate the lung bases but no significant cough clinical suspicious low for pneumonia especially of aspiration etiology but not entirely excluded 2-patient with multiple antibiotic ALLERGIES that would limit the number of antibiotic safe to use 3-blood and sputum cultures currently pending urine culture have been negative so far 4patient has shown clinical improvement will continue with Azactam while waiting for the culture to finalize Dictation was produced using [employer] dictation software. please excuse any grammatical, word or spelling errors. Time with Patient: Less than 30
[2024-06-24] MEDS: AZTREONAM 2 GM in SODIUM CHLORIDE 0.9% 100 ML IVPB SCH ×2 (16:20→17:50)
[2024-06-24 17:27] LABS: Glucose,Whole Blood 267 mg/dL (70-110)
[2024-06-24 19:55] LABS: Glucose,Whole Blood 317 mg/dL (70-110)
--- NOTE | 2024-06-24 23:22 | P.PN ---
Subjective Progress Note Date: 06/24/24 Patient is a 78-year-old female with past medical history significant for hypertension, hyperlipidemia, diabetes mellitus, heart failure, Zenker's diverticulum, and previous hospitalizations for hyponatremia. Patient presents to the emergency department last night with a chief complaint of generalized w eakness. Of note, previously having episodes of burning with urination and urinary frequency. Outpatient urine culture positive for Proteus Mirabilis, and patient was started on Bactrim on Friday by her PCP Dr. Sanchez. Workup in the emergency department significant for severe hyponatremia. Sodium was 113. Nephrology was consulted. Further workup including a chest x-ray demonstrated patchy infiltrate of opacities, more pronounced on the right lung menon. Abdomen/pelvis CT redemonstrates patchy nodular opacities partially visualized in the lower lungs, concerning for pneumonia. Fluid distention of the distal thoracic esophagus consistent with reflux. No acute abnormality in the abdomen/pelvis. CBC: WBC count 24.2, hemoglobin 0.6, platelets 585. CMP: Sodium 113, potassium 5, chloride 78, serum bicarb 27, BUN 20, creatinine 1.03, glucose 322. Lactic 1.6. Magnesium 1.2. LFTs unremarkable. NT proBNP 406. TSH 2.8. Urinalysis positive for pyuria and bacteriuria. Viral screen negative for influenza, RSV, COVID. Patient currently being seen in the emergency department room 28. She is awake and alert and oriented x 3. On room air. Generally weak and requires assistance to sit up in bed. Denies any shortness of breath, cough, sputum production, hemoptysis, chest pain. Denies fevers or chills. Denies any sick contacts. She states that her sodium is always low. She has been taking Bactrim for her UTI and has increased her water intake. Appetite has been good. Denies any nausea or vomiting or diarrhea. Endorses some lower extremity swelling. Does take Lasix on an outpatient basis, 60 mg twice a day. No confusion, headaches, seizures. Normal saline infusing at 50 mL/h. 06/22/2024, the patient remains on room air oxygen. The patient was taken off the hypertonic saline solution and sodium levels at 119 and the patient will be given a dose of Samsca. Potassium is at 5.1. BUN is 23 with a creatinine of 1.4. The patient sustained an acute kidney injury. The white cell count of 19.9 with a hemoglobin 7.6. She has chronic dysphagia and she also had a right sided pulmonary infiltrates consistent with pneumonia. Repeat chest x-ray from today shows cardiomegaly with multifocal right-sided pulmonary infiltrate without any significant change. The patient is currently off Bactrim due to underlying acute kidney injury. Start the patient on clindamycin and this was subsequently discontinued. Patient remains on aztreonam. Blood cultures are s till pending. Urine culture is negative. On 06/23/2024, the patient's sodium level is up to 120. Creatinine is down to 1.3. The white cell count remains elevated at 18.7 with a hemoglobin 7.5. She remains on IV aztreonam. Sputum culture still pending. Blood cultures negative. No new complaints. She remains on room air oxygen. On 06/24/2024 follow-up chest x-ray shows no new changes and there is persistent cardiomegaly with some interval clearing of the right-sided pulmonary infiltration. Patient sodium levels at 124. Serum chloride is 88. BUN 68 with a creatinine of 1.6 which is slightly worse compared to yesterday. Blood sugars at 317. Operations Supervisor on the case regarding acute kidney injury. The patient remains on IV aztreonam. Objective - Vital Signs Vital signs: Vital Signs Temp 97.3 F L 06/24/24 19:12 Pulse 51 L 06/24/24 19:12 Resp 18 06/24/24 19:12 BP 129/54 06/24/24 19:12 Pulse Ox 99 06/24/24 19:12 FiO2 Intake & Output 06/24/24 06/24/24 06/25/24 06:59 18:59 06:59 Intake Total 420 730 Output Total 1300 900 Balance -880 -170 Weight 115.5 kg Intake: Intake, IV Titration 100 Amount Aztreonam 2 gm In Sodium 100 Chloride 0.9% 100 ml @ 33 .34 mls/hr IVPB Q8HR [facility] Rx#:[id number] Oral 320 730 Output: Urine 1300 900 Other: Voiding Method Indwelling Catheter Indwelling Catheter # Voids 2 3 # Bowel Movements 2 - Exam GENERAL EXAM: Alert, morbidly obese 78-year-old white female, comfortable in no apparent distress. HEAD: Normocephalic and atraumatic EYES: Normal reaction of pupils, equal size. NOSE: Clear with pink turbinates. THROAT: No erythema or exudates. NECK: No masses, no JVD. CHEST: No chest wall deformity. LUNGS: Equal air entry with right lung inspiratory crackles. On room air. No conversational dyspnea or accessory muscle use.. CVS: S1 and S2 normal with no audible murmur, regular rhythm. No extra heart sounds ABDOMEN: No hepatosplenomegaly, active bowel sounds, no guarding or rigidity. SPINE: No scoliosis or deformity SKIN: No rashes CENTRAL NERVOUS SYSTEM: No focal deficits, tone is normal in all 4 extremities. EXTREMITIES: There is bilateral lower extremity nonpitting edema. No clubbing or cyanosis. Peripheral pulses are intact. - Labs CBC & Chem 7: 06/23/24 05:31 06/24/24 03:30 Labs: Abnormal Lab Results - Last 24 Hours (Table) 06/24/24 06/24/24 06/24/24 Range/Units 03:30 07:21 12:12 Sodium 124 L (135-145) mmol/L Chloride 88 L (96-109) mmol/L BUN 68.0 H (9.0-27.0) mg/dL Creatinine 1.6 H (0.6-1.5) mg/dL Est GFR (CKD-EPI) 33 L (>=60) BUN/Creatinine Ratio 42.50 H (12.00-20.00) Ratio Glucose 133 H (70-110) mg/dL POC Glucose (mg/dL) 142 H 226 H (70-110) mg/dL 06/24/24 06/24/24 Range/Units 17:26 19:52 Sodium (135-145) mmol/L Chloride (96-109) mmol/L BUN (9.0-27.0) mg/dL Creatinine (0.6-1.5) mg/dL Est GFR (CKD-EPI) (>=60) BUN/Creatinine Ratio (12.00-20.00) Ratio Glucose (70-110) mg/dL POC Glucose (mg/dL) 267 H 317 H (70-110) mg/dL Microbiology - Last 24 Hours (Table) 06/21/24 07:11 Blood Culture - Preliminary Blood 06/22/24 17:09 Gram Stain - Preliminary Sputum Sputum Culture - Preliminary Assessment and Plan Assessment: Severe hyponatremia, improving Acute kidney injury,, creatinine is at 1.6 Generalized weakness, secondary to above History of heart failure with preserved ejection fraction Patchy multifocal infiltrates/opacities, more pronounced on the right lung menon, concerning for multifocal pneumonia. Consider aspiration pneumonia as the patient has chronic difficulties with swallowing/Zenker's diverticulum. Chest x-ray obtained on 06/27/2024 shows improvement Acute leukocytosis Recent outpatient treatment for UTI with Bactrim Multiple medication allergies Hypomagnesemia, replaced Anemia, monitor for blood loss Hypertension History of hyperlipidemia Diabetes mellitus type 2, with hyperglycemia History of dysphagia with Zenker's diverticulum History of asthma, stable and inactive Morbid obesity, with a BMI of 41.6 kg/m Plan: Remains on room air oxygen Follow-up chest x-ray in a.m. on the results were noted, improving Discontinuing the Bactrim Fluid restriction Monitor sodium level Monitor the white cell count IV aztreonam Check procalcitonin level is at 0.77 Cultures are negative Follow-up with nephrology and primary care.
[2024-06-25 07:31] LABS: Glucose,Whole Blood 188 mg/dL (70-110)
[2024-06-25 08:38] LABS: Basophils # (A) 0.16 X 10*3/uL (0.00-0.10); Basophils % (A) 1.2 %; Eosinophils # (A) 0.48 X 10*3/uL (0.04-0.35); Eosinophils % (A) 3.6 %; HCT 26.6 % (37.2-46.3); HGB 8.2 g/dL (12.0-15.0); Lymphocytes # (A) 2.93 X 10*3/uL (0.90-5.00); Lymphocytes % (A) 21.9 %; MCH 25.7 pg (27.0-32.0); MCHC 30.8 g/dL (32.0-37.0); MCV 83.4 FL (80.0-97.0); Mean Platelet Volume 9.8 FL (9.5-12.2); Monocytes # (A) 1.09 X 10*3/uL (0.20-1.00); Monocytes % (A) 8.1 %; NRBC Per 100 WBC 0 X 10*3/uL (0.00-0.01); Neutrophils # (A) 8.29 X 10*3/uL (1.80-7.70); Platelet Count 620 X 10*3/uL (140-440); RBC 3.19 X 10*6/uL (4.10-5.20); RDW 15.6 % (11.5-14.5); WBC 13.38 X 10*3/uL (4.50-10.00)
[2024-06-25 08:41] LABS: BUN/Creat Ratio 55.14 Ratio (12.00-20.00); Blood Urea Nitrogen 77.2 mg/dL (9.0-27.0); Carbon Dioxide 25.2 mmol/L (21.6-31.8); Chloride 93 mmol/L (96-109); Glucose 172 mg/dL (70-110); Magnesium 2.1 mg/dL (1.5-2.4); Potassium 5.2 mmol/L (3.5-5.5); Sodium 130 mmol/L (135-145)
[2024-06-25 08:42] LABS: ALT 27 U/L (8-44); AST 29 U/L (13-35); Albumin 3.2 g/dL (3.8-4.9); Alkaline Phosphatase 224 U/L (41-126); Calcium 9.8 mg/dL (8.7-10.3); Globulin 3.2 g/dL (1.6-3.3); Total Bilirubin <0.2 mg/dL (0.3-1.2); Total Protein 6.4 g/dL (6.2-8.2)
--- NOTE | 2024-06-25 09:52 | P.PN ---
Subjective Progress Note Date: 06/25/24 HISTORY OF PRESENT ILLNESS: This is a 78 year old female with a previous medical history signif icant for hypertension and hypertensive cardiovascular disease, hyperlipidemia, diabetes mellitus type 2, and diabetic polyneuropathy, GERD with duodenal ulcer, and obesity with obstructive sleep apnea, and obesity hypoventilation syndrome, chronic diastolic heart filure, patient was last hospitalized at [facility] about a year ago with accelerated hypertension and hypervolemic hyponatremia and was sen by cardiology and nephrology, patient was recently to be treated as an outpatient for urinary tract infection, but she has numerous allergies/limited antibiotic use, she stated that she only can use Bactrim and she was given a smaller dose due to her creatinine clearance, patient stated that she is not feeling better with that, so she ended up coming to the emergency department [facility] emergency department yesterday she was found to have severe hyponatremia with a sodium of 113 and severe hypochloremia as well, she was started on IV fluid resuscitation in the form of normal saline at 50 cc an hour, her sodium is up to 115 she continues to be severely hyponatremic, she will be admitted to the ICU, patient may need to be started on 3% hypertonic to try to improve her sodium up to like 120 nephrology consultation was obtained, I obtain serum osmolality, urine osmolality, urine sodium, cortisol level, TSH and free T4, patient also was found to have urinary tract infection, urine culture was sent blood culture was sent I started the patient on Azactam 1 g IV piggyback every 8 hours, continue Bactrim IV piggyback for now until further recommendation by ID. 06/22: Patient sitting up in chair no apparent distress, she is on room air, her oxygenation is 95%, she is complaining of increased coughing, minimal from production, chest x-ray showed evidence of possible acute infiltrate, versus atelectasis, she was started on Azactam 2 g piggyback every 8 hours, she was taken off Bactrim, she was seen in consultation by nephrology as well as by pulmonary medicine, she was started on 3%, her sodium is up to 119, I started the patient on Lasix 40 mg IV push every 12 hours, input and output and daily weight, continue fluid restriction to 1500 cc over 24 hours, follow-up with the patient very closely. 06/23: Patient sitting up in bed in no apparent distress, she continues to be on room air, oxygenation is 97%, chest x-ray showed evidence of right middle lobe and lower lobe pneumonia, this is likely aspiration pneumonia at this time, patient is having some issues with swallowing, speech therapy evaluation, continue Azactam as the patient is allergic to numerous antibiotic, pulmonary as well as ID is following, repeat sodium level today, she did receive 1 dose of Samsca yesterday, she did receive 1 dose of Lasix yesterday as well, follow-up with the patient very closely, 06/24: Patient is sitting up in recliner chair in no apparent distress, she ambulated using her walker, she continues to be on Azactam 2 g piggyback every 8 hours, she has been responding very well to the treatment plan, her sodium is up to 124, continue fluid restriction, she did receive Samsca as well as Lasix, repeat sodium tomorrow morning, continue follow-up with the patient very closel y, the plan is for the patient to go home with home health care. 06/25: Patient sitting up in bed in no apparent distress, she is feeling a lot better today, her sodium is up to 130, she denies any chest pain, she continues to have some cough with feeding, she possibly aspirating on and off, will co ntinue with Azactam 2 g piggyback every 8 hours, follow-up with the patient very closely. Patient can be discharged home hopefully in the next 24 hours REVIEW OF SYSTEMS: Constitutional: No documented fever, no chills, no night sweats. No weight change. Positive for weakness, fatigue or lethargy. No daytime sleepiness. HEENT: No headache. No blurred vision or double vision, no loss of vision. No loss of Hearing, no ringing in the ears, no dizziness. No nasal drainage or congestion. No epistaxis. No sore throat. Lungs: Positive for shortness of breath, positive for cough, positive for sputum production. No wheezing. Reports dyspnea with activity. Cardiovascular: No chest pain, positive for lower extremity edema. Positive for palpitations. negative for paroxysmal nocturnal dyspnea. Negative for orthopnea. No lightheadedness or dizziness. No syncopal episodes. Abdominal: Reports abdominal pain. No nausea, vomiting. No diarrhea. No constipation. No bloody or tarry stools reports loss of appetite. Genitourinary: Positive for dysuria, increased frequency, urgency. No urinary retention. Musculoskeletal: No myalgias. Positive muscle weakness, positive for gait dys function, no frequent falls. positive for back pain. No neck pain. Integumentary: No wounds, no lesions. No rash or pruritus. No unusual bruising. No change in hair or nails. Neurologic: No aphasia. No facial droop. No change in mentation. No head injury. No headache. No paralysis. positive for facial paresthesia. Psychiatric: positive for depression, positive for anxiety. No mood swings. Endocrine: abnormal blood sugars. positive for weight change. PHYSICAL EXAMINATION: General: 78 year old female sitting up in bed no apparent distress. HEENT: Head is atraumatic, normocephalic, pupils were equal round reactive to light and recommendation, extraocular muscle movement were intact, sclera nonicteric, conjunctivae were pale, mucous membranes of the mouth are somewhat dry. Neck: Supple, no JVP, normal carotid upstroke bilaterally, no lymphadenopathy. Chest: Decreased breath sounds at the bases, few rhonchi, no expiratory wheezes, no chest wall tenderness, no intercostal retractions. Heart: First heart sound is normal, second heart sound is normal there is BIANCA 2/6 located at the left sternal border. Abdomen: Soft, obese nontender, nondistended, positive bowel sounds. Extremities: There is +1 edema no calf tenderness DP +2 bilaterally. Neurologic examination: Patient is awake alert and oriented X3, cranial nerves II-12 appear grossly intact, muscle power were 4 out of 5 in upper extremities and 4 out of 5 in bilateral lower extremities, deep tendon reflexes normal bila terally. ASSESSMENT AND PLAN: 1. 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 Continue fluid restriction, her sodium is 130 today follow-up with the patient in the next 24 hours she can be discharged home in the next 24 hours if she is ambulating well today, continue with urea 15 gr po bid 2. Recurrent UTI . Repeat urine cultures negative for infection at this time. 3. Right middle lobe and lower lobe pneumonia likely aspiration pneumonia continue patient on Azactam 2 g piggyback every 8 hours, sputum culture, blood cultures, pulmonary is following, ID is following, patient has multiple allergie s which limits the antibiotic use 4. Hypertension and hypertensive cardiovascular disease. we will continue with Atenolol 50 mg po bid, Clonidine 0.2 mg 1 tabs po at bedtime, Losartan 100 mg po daily, Amlodipine 5 mg orally daily and we will continue with BP monitoring. 5. Mixed hyperlipidemia. we will continue with low cholesterol diet and exercise and weight loss, patient is not taking any statin at this time, and she refused PCSK9 inhibitor keep LDL-c 55-70 6. Diabetes Mellitus type 2. we will continue with Lantus 12 units at bedtime along with SSI and we will continue with Metformin 1000 mg po daily and Pioglitasone 30 mg po daily, BGM before each meal and at bedtime. 7. Obesity and obstructive sleep apnea and OHS. not able to tolerate CPAP. 8. Vitamin D deficiency. we will continue with vitamin d supplements. 9. Asthma. stable. 10. GERD with PUD. we will continue with Protonix 40 mg IVP daily. 11. Anxiety.we will continue with Xanax as needed. 12. Paroxysmal atrial fibrillation currently in sinus rhythm. Patient is not a candidate for anticoagulation because of recurrent GI bleed. Continue atenolol 50 mg orally twice every day monitor the patient symptoms very closely. 13. DVT Prophylaxis continue heparin 5000 units subcutaneously every 8 hours per. 14. GI Prophylaxis . we will continue with Pantoprazole 40 mg IV push daily. 15. Anemia multifactorial. Check iron studies, B12, folic acid, check kappa and lambda light chain serum protein electrophoresis LDH and haptoglobin. 16 dysphagia. Swallow evaluation. By speech therapy. 17. Full code. 18. Home tomorrow morning. Objective - Vital Signs Vital signs: Vital Signs Temp 97.5 F L 06/25/24 07:20 Pulse 98 06/25/24 07:20 Resp 16 06/25/24 07:20 BP 146/72 06/25/24 07:20 Pulse Ox 98 06/25/24 07:20 FiO2 Intake & Output 06/24/24 06/25/24 06/25/24 18:59 06:59 18:59 Intake Total 730 780 Output Total 900 Balance -170 780 Weight 113.3 kg Intake: Intake, IV Titration 100 Amount Aztreonam 2 gm In Sodium 100 Chloride 0.9% 100 ml @ 33 .34 mls/hr IVPB Q8HR [facility] Rx#:[id number] Oral 730 680 Output: Urine 900 Other: Voiding Method Indwelling Catheter Bedside Commode # Voids 2 3 # Bowel Movements 2 2 - Labs CBC & Chem 7: 06/25/24 04:34 06/25/24 04:34 Labs: Abnormal Lab Results - Last 24 Hours (Table) 06/24/24 06/24/24 06/24/24 Range/Units 12:12 17:26 19:52 WBC (4.50-10.00) X 10*3/uL RBC (4.10-5.20) X 10*6/uL Hgb (12.0-15.0) g/dL Hct (37.2-46.3) % MCH (27.0-32.0) pg MCHC (32.0-37.0) g/dL RDW (11.5-14.5) % Plt Count (140-440) X 10*3/uL Immature Gran # (0.00-0.04) X 10*3/uL Neutrophils # (1.80-7.70) X 10*3/uL Monocytes # (0.20-1.00) X 10*3/uL Eosinophils # (0.04-0.35) X 10*3/uL Basophils # (0.00-0.10) X 10*3/uL Sodium (135-145) mmol/L Chloride (96-109) mmol/L BUN (9.0-27.0) mg/dL Est GFR (CKD-EPI) (>=60) BUN/Creatinine Ratio (12.00-20.00) Ratio Glucose (70-110) mg/dL POC Glucose (mg/dL) 226 H 267 H 317 H (70-110) mg/dL Total Bilirubin (0.3-1.2) mg/dL Alkaline Phosphatase (41-126) U/L Albumin (3.8-4.9) g/dL Albumin/Globulin Ratio (1.60-3.17) Ratio 06/25/24 06/25/24 06/25/24 Range/Units 04:34 04:34 07:29 WBC 13.38 H (4.50-10.00) X 10*3/uL RBC 3.19 L (4.10-5.20) X 10*6/uL Hgb 8.2 L (12.0-15.0) g/dL Hct 26.6 L (37.2-46.3) % MCH 25.7 L (27.0-32.0) pg MCHC 30.8 L (32.0-37.0) g/dL RDW 15.6 H (11.5-14.5) % Plt Count 620 H (140-440) X 10*3/uL Immature Gran # 0.43 H (0.00-0.04) X 10*3/uL Neutrophils # 8.29 H (1.80-7.70) X 10*3/uL Monocytes # 1.09 H (0.20-1.00) X 10*3/uL Eosinophils # 0.48 H (0.04-0.35) X 10*3/uL Basophils # 0.16 H (0.00-0.10) X 10*3/uL Sodium 130 L (135-145) mmol/L Chloride 93 L (96-109) mmol/L BUN 77.2 H (9.0-27.0) mg/dL Est GFR (CKD-EPI) 38 L (>=60) BUN/Creatinine Ratio 55.14 H (12.00-20.00) Ratio Glucose 172 H (70-110) mg/dL POC Glucose (mg/dL) 188 H (70-110) mg/dL Total Bilirubin <0.2 L (0.3-1.2) mg/dL Alkaline Phosphatase 224 H (41-126) U/L Albumin 3.2 L (3.8-4.9) g/dL Albumin/Globulin Ratio 1.00 L (1.60-3.17) Ratio Microbiology - Last 24 Hours (Table) 06/21/24 07:11 Blood Culture - Preliminary Blood 06/22/24 17:09 Gram Stain - Preliminary Sputum Sputum Culture - Preliminary
--- NOTE | 2024-06-25 11:34 | P.PN ---
Subjective Patient is seen in follow-up for hyponatremia. Sodium level 130 this morning. Has been receiving Samsca and IV Lasix as well as urea. Nonoliguric. Oral intake also gradually improving. Renal function stable. Vital signs are stable. General: No acute distress. HEENT: Head exam is unremarkable. LUNGS: No audible rhonchi or wheezes. HEART: Rate and Rhythm are regular. ABDOMEN: Nontender. Obese. EXTREMITITES: 2+ edema. Objective - Vital Signs Vital signs: Vital Signs Temp 97.5 F L 06/25/24 07:20 Pulse 48 L 06/25/24 07:20 Resp 16 06/25/24 07:20 BP 146/72 06/25/24 07:20 Pulse Ox 98 06/25/24 07:20 FiO2 Intake & Output 06/24/24 06/25/24 06/25/24 18:59 06:59 18:59 Intake Total 730 780 Output Total 900 Balance -170 780 Weight 113.3 kg Intake: Intake, IV Titration 100 Amount Aztreonam 2 gm In Sodium 100 Chloride 0.9% 100 ml @ 33 .34 mls/hr IVPB Q8HR [facility] Rx#:[id number] Oral 730 680 Output: Urine 900 Other: Voiding Method Indwelling Catheter Bedside Commode # Voids 2 3 # Bowel Movements 2 2 - Labs CBC & Chem 7: 06/25/24 04:34 06/25/24 04:34 Labs: Abnormal Lab Results - Last 24 Hours (Table) 06/24/24 06/24/24 06/24/24 Range/Units 12:12 17:26 19:52 WBC (4.50-10.00) X 10*3/uL RBC (4.10-5.20) X 10*6/uL Hgb (12.0-15.0) g/dL Hct (37.2-46.3) % MCH (27.0-32.0) pg MCHC (32.0-37.0) g/dL RDW (11.5-14.5) % Plt Count (140-440) X 10*3/uL Immature Gran # (0.00-0.04) X 10*3/uL Neutrophils # (1.80-7.70) X 10*3/uL Monocytes # (0.20-1.00) X 10*3/uL Eosinophils # (0.04-0.35) X 10*3/uL Basophils # (0.00-0.10) X 10*3/uL Sodium (135-145) mmol/L Chloride (96-109) mmol/L BUN (9.0-27.0) mg/dL Est GFR (CKD-EPI) (>=60) BUN/Creatinine Ratio (12.00-20.00) Ratio Glucose (70-110) mg/dL POC Glucose (mg/dL) 226 H 267 H 317 H (70-110) mg/dL Total Bilirubin (0.3-1.2) mg/dL Alkaline Phosphatase (41-126) U/L Albumin (3.8-4.9) g/dL Albumin/Globulin Ratio (1.60-3.17) Ratio 06/25/24 06/25/24 06/25/24 Range/Units 04:34 04:34 07:29 WBC 13.38 H (4.50-10.00) X 10*3/uL RBC 3.19 L (4.10-5.20) X 10*6/uL Hgb 8.2 L (12.0-15.0) g/dL Hct 26.6 L (37.2-46.3) % MCH 25.7 L (27.0-32.0) pg MCHC 30.8 L (32.0-37.0) g/dL RDW 15.6 H (11.5-14.5) % Plt Count 620 H (140-440) X 10*3/uL Immature Gran # 0.43 H (0.00-0.04) X 10*3/uL Neutrophils # 8.29 H (1.80-7.70) X 10*3/uL Monocytes # 1.09 H (0.20-1.00) X 10*3/uL Eosinophils # 0.48 H (0.04-0.35) X 10*3/uL Basophils # 0.16 H (0.00-0.10) X 10*3/uL Sodium 130 L (135-145) mmol/L Chloride 93 L (96-109) mmol/L BUN 77.2 H (9.0-27.0) mg/dL Est GFR (CKD-EPI) 38 L (>=60) BUN/Creatinine Ratio 55.14 H (12.00-20.00) Ratio Glucose 172 H (70-110) mg/dL POC Glucose (mg/dL) 188 H (70-110) mg/dL Total Bilirubin <0.2 L (0.3-1.2) mg/dL Alkaline Phosphatase 224 H (41-126) U/L Albumin 3.2 L (3.8-4.9) g/dL Albumin/Globulin Ratio 1.00 L (1.60-3.17) Ratio Microbiology - Last 24 Hours (Table) 06/22/24 17:09 Gram Stain - Final Sputum Sputum Culture - Final 06/21/24 07:11 Blood Culture - Preliminary Blood Assessment and Plan Plan: Assessment: 1. 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 Sodium level gradually improving and is 130 this morning. TSH normal. Urine sodium 65 and urine osmolality 586. Cortisol level 24.7. 2. UTI on antibiotics. 3. Benign hypertension. Stable. 4. Diabetes mellitus. 5. Hypomagnesemia from poor intake. Replaced. Improved. 6. Acute kidney injury secondary to vasomotor nephropathy secondary to diuresis. Renal function stable. Creatinine 1.4. Plan: Maintain urea twice daily. Add oral Lasix 60 mg twice daily which is her home dose. Encouraged oral intake. Maintain fluid restriction. Hold amlodipine for systolic blood pressure less than 120. Workup for malignancy was discussed with her primary attending physician. CT scan this admission does not show any obvious malignancy. Follow-up PTH related peptide. Follow-up outpatient 1 week postdischarge.
[2024-06-25] MEDS: FUROSEMIDE 20 MG TAB PO SCH (11:55)
[2024-06-25 12:29] LABS: Glucose,Whole Blood 252 mg/dL (70-110)
[2024-06-25 14:08] VITALS: BMI 41.5
--- NOTE | 2024-06-25 14:56 | P.PN ---
Subjective Progress Note Date: 06/25/24 Principal diagnosis: Reason for follow-up is UTI and a question of pneumonia Patient is a 78-year-old female with a past medical history significant for diabetes mellitus reflux hypertension hyperlipidemia asthma anxiety presenting to the hospital for evaluation of weakness has been diagnosed with a UTI failing outpatient therapy and the question of possible pneumonia. On today's evaluation that is 06/25/2024, the patient continues to be afebrile, the patient is on room air and breathing comfortably, the Pt denies having any chest pain and cough is decreased in intensity, the patient denies having any abdominal pain no vomiting or any diarrhea. Patient white count is down to 13.38 creatinine is 1.4 culture have been negative so far Objective - Vital Signs Vital signs: Vital Signs Temp 97.5 F L 06/25/24 07:20 Pulse 48 L 06/25/24 07:20 Resp 16 06/25/24 07:20 BP 146/72 06/25/24 07:20 Pulse Ox 98 06/25/24 07:20 FiO2 Intake & Output 06/24/24 06/25/24 06/25/24 18:59 06:59 18:59 Intake Total 730 780 Output Total 900 Balance -170 780 Weight 113.3 kg Intake: Intake, IV Titration 100 Amount Aztreonam 2 gm In Sodium 100 Chloride 0.9% 100 ml @ 33 .34 mls/hr IVPB Q8HR [facility] Rx#:[id number] Oral 730 680 Output: Urine 900 Other: Voiding Method Indwelling Catheter Bedside Commode # Voids 2 3 # Bowel Movements 2 2 - Exam GENERAL DESCRIPTION: An elderly male up in a chair in no distress RESPIRATORY SYSTEM: Unlabored breathing , decreased breath sounds at bases HEART: S1 S2 regular rate and rhythm , ABDOMEN: Soft , no tenderness EXTREMITIES: No edema feet - Labs CBC & Chem 7: 06/25/24 04:34 06/25/24 04:34 Labs: Abnormal Lab Results - Last 24 Hours (Table) 06/24/24 06/24/24 06/24/24 Range/Units 12:12 17:26 19:52 WBC (4.50-10.00) X 10*3/uL RBC (4.10-5.20) X 10*6/uL Hgb (12.0-15.0) g/dL Hct (37.2-46.3) % MCH (27.0-32.0) pg MCHC (32.0-37.0) g/dL RDW (11.5-14.5) % Plt Count (140-440) X 10*3/uL Immature Gran # (0.00-0.04) X 10*3/uL Neutrophils # (1.80-7.70) X 10*3/uL Monocytes # (0.20-1.00) X 10*3/uL Eosinophils # (0.04-0.35) X 10*3/uL Basophils # (0.00-0.10) X 10*3/uL Sodium (135-145) mmol/L Chloride (96-109) mmol/L BUN (9.0-27.0) mg/dL Est GFR (CKD-EPI) (>=60) BUN/Creatinine Ratio (12.00-20.00) Ratio Glucose (70-110) mg/dL POC Glucose (mg/dL) 226 H 267 H 317 H (70-110) mg/dL Total Bilirubin (0.3-1.2) mg/dL Alkaline Phosphatase (41-126) U/L Albumin (3.8-4.9) g/dL Albumin/Globulin Ratio (1.60-3.17) Ratio 06/25/24 06/25/24 06/25/24 Range/Units 04:34 04:34 07:29 WBC 13.38 H (4.50-10.00) X 10*3/uL RBC 3.19 L (4.10-5.20) X 10*6/uL Hgb 8.2 L (12.0-15.0) g/dL Hct 26.6 L (37.2-46.3) % MCH 25.7 L (27.0-32.0) pg MCHC 30.8 L (32.0-37.0) g/dL RDW 15.6 H (11.5-14.5) % Plt Count 620 H (140-440) X 10*3/uL Immature Gran # 0.43 H (0.00-0.04) X 10*3/uL Neutrophils # 8.29 H (1.80-7.70) X 10*3/uL Monocytes # 1.09 H (0.20-1.00) X 10*3/uL Eosinophils # 0.48 H (0.04-0.35) X 10*3/uL Basophils # 0.16 H (0.00-0.10) X 10*3/uL Sodium 130 L (135-145) mmol/L Chloride 93 L (96-109) mmol/L BUN 77.2 H (9.0-27.0) mg/dL Est GFR (CKD-EPI) 38 L (>=60) BUN/Creatinine Ratio 55.14 H (12.00-20.00) Ratio Glucose 172 H (70-110) mg/dL POC Glucose (mg/dL) 188 H (70-110) mg/dL Total Bilirubin <0.2 L (0.3-1.2) mg/dL Alkaline Phosphatase 224 H (41-126) U/L Albumin 3.2 L (3.8-4.9) g/dL Albumin/Globulin Ratio 1.00 L (1.60-3.17) Ratio Microbiology - Last 24 Hours (Table) 06/22/24 17:09 Gram Stain - Final Sputum Sputum Culture - Final 06/21/24 07:11 Blood Culture - Preliminary Blood Assessment and Plan (1) Allergy to multiple antibiotics Current Visit: Yes Status: Acute Code(s): Z88.1 - ALLERGY STATUS TO OTHER ANTIBIOTIC AGENTS SNOMED Code(s): 717623088 (2) UTI (urinary tract infection) Current Visit: Yes Status: Acute Code(s): N39.0 - URINARY TRACT INFECTION, SITE NOT SPECIFIED SNOMED Code(s): 99167563 (3) Pneumonia Current Visit: Yes Status: Acute Code(s): J18.9 - PNEUMONIA, UNSPECIFIED ORGANISM SNOMED Code(s): 876403718 Plan: 1patient presented hospital with generalized weakness no energy she also have urinary burning and frequency significantly positive UA likely concerning for symptomatic UTI from enteric gram-negative pathogen failing outpatient oral Bactrim DS therapy patient CT abdomen pelvis concerning for some multifocal infiltrate the lung bases but no significant cough clinical suspicious low for pneumonia especially of aspiration etiology but not entirely excluded 2-patient with multiple antibiotic ALLERGIES that would limit the number of antibiotic safe to use 3-blood and sputum cultures has been negative so far 4patient is afebrile patient white count is trending down, will continue with Azactam because of her multiple antibiotic allergies Dictation was produced using [employer] dictation software. please excuse any gram matical, word or spelling errors. Time with Patient: Less than 30
[2024-06-25 17:14] LABS: Glucose,Whole Blood 162 mg/dL (70-110)
[2024-06-25 20:34] LABS: Glucose,Whole Blood 234 mg/dL (70-110)
[2024-06-26 00:33] LABS: Glucose,Whole Blood 313 mg/dL (70-110)
[2024-06-26 07:29] LABS: Glucose,Whole Blood 188 mg/dL (70-110)
[2024-06-26] MEDS: PANTOPRAZOLE 40 MG TABLET PO SCH (09:06)
[2024-06-26 09:29] LABS: BUN/Creat Ratio 73.09 Ratio (12.00-20.00); Blood Urea Nitrogen 80.4 mg/dL (9.0-27.0); Carbon Dioxide 25.9 mmol/L (21.6-31.8); Chloride 92 mmol/L (96-109); Glucose 201 mg/dL (70-110); Potassium 5.1 mmol/L (3.5-5.5); Sodium 131 mmol/L (135-145)
[2024-06-26 09:30] LABS: ALT 28 U/L (8-44); AST 30 U/L (13-35); Albumin 3.3 g/dL (3.8-4.9); Albumin/Globulin Ratio 1.03 Ratio (1.60-3.17); Alkaline Phosphatase 233 U/L (41-126); Globulin 3.2 g/dL (1.6-3.3); Total Bilirubin <0.2 mg/dL (0.3-1.2); Total Protein 6.5 g/dL (6.2-8.2)
[2024-06-26 10:25] LABS: Basophils # (A) 0.16 X 10*3/uL (0.00-0.10); Basophils % (A) 1.3 %; Eosinophils # (A) 0.54 X 10*3/uL (0.04-0.35); Eosinophils % (A) 4.3 %; HCT 27.3 % (37.2-46.3); HGB 8.3 g/dL (12.0-15.0); Lymphocytes % (A) 22.2 %; MCH 25.3 pg (27.0-32.0); MCHC 30.4 g/dL (32.0-37.0); MCV 83.2 FL (80.0-97.0); Mean Platelet Volume 10.2 FL (9.5-12.2); Monocytes # (A) 0.98 X 10*3/uL (0.20-1.00); Monocytes % (A) 7.8 %; NRBC Per 100 WBC 0 X 10*3/uL (0.00-0.01); Neutrophils # (A) 7.64 X 10*3/uL (1.80-7.70); Neutrophils % (A) 60.7 %; Platelet Count 671 X 10*3/uL (140-440); RBC 3.28 X 10*6/uL (4.10-5.20); RDW 15.6 % (11.5-14.5); WBC 12.59 X 10*3/uL (4.50-10.00)
--- NOTE | 2024-06-26 11:15 | P.PN ---
Subjective Patient is seen in follow-up for hyponatremia. Sodium level 131 this morning. On oral Lasix. Nonoliguric. Oral intake also gradually improving. Renal function improved. Vital signs are stable. General: No acute distress. HEENT: Head exam is unremarkable. LUNGS: No audible rhonchi or wheezes. HEART: Rate and Rhythm are regular. ABDOMEN: Nontender. Obese. EXTREMITITES: 2+ edema. Objective - Vital Signs Vital signs: Vital Signs Temp 97.6 F 06/26/24 07:21 Pulse 53 L 06/26/24 07:21 Resp 16 06/26/24 07:21 BP 126/58 06/26/24 07:21 Pulse Ox 98 06/26/24 07:21 FiO2 Intake & Output 06/25/24 06/26/24 06/26/24 18:59 06:59 18:59 Intake Total 240 462 Balance 240 462 Weight 113.3 kg 112.2 kg Intake: Oral 240 462 Other: Voiding Method Bedside Commode Bedside Commode # Voids 1 1 # Bowel Movements 4 1 - Labs CBC & Chem 7: 06/26/24 05:34 06/26/24 05:34 Labs: Abnormal Lab Results - Last 24 Hours (Table) 06/25/24 06/25/24 06/25/24 Range/Units 12:27 17:12 20:31 WBC (4.50-10.00) X 10*3/uL RBC (4.10-5.20) X 10*6/uL Hgb (12.0-15.0) g/dL Hct (37.2-46.3) % MCH (27.0-32.0) pg MCHC (32.0-37.0) g/dL RDW (11.5-14.5) % Plt Count (140-440) X 10*3/uL Immature Gran # (0.00-0.04) X 10*3/uL Eosinophils # (0.04-0.35) X 10*3/uL Basophils # (0.00-0.10) X 10*3/uL Sodium (135-145) mmol/L Chloride (96-109) mmol/L Anion Gap (4.00-12.00) mmol/L BUN (9.0-27.0) mg/dL Est GFR (CKD-EPI) (>=60) BUN/Creatinine Ratio (12.00-20.00) Ratio Glucose (70-110) mg/dL POC Glucose (mg/dL) 252 H 162 H 234 H (70-110) mg/dL Total Bilirubin (0.3-1.2) mg/dL Alkaline Phosphatase (41-126) U/L Albumin (3.8-4.9) g/dL Albumin/Globulin Ratio (1.60-3.17) Ratio 06/26/24 06/26/24 06/26/24 Range/Units 00:30 05:34 05:34 WBC 12.59 H (4.50-10.00) X 10*3/uL RBC 3.28 L (4.10-5.20) X 10*6/uL Hgb 8.3 L (12.0-15.0) g/dL Hct 27.3 L (37.2-46.3) % MCH 25.3 L (27.0-32.0) pg MCHC 30.4 L (32.0-37.0) g/dL RDW 15.6 H (11.5-14.5) % Plt Count 671 H (140-440) X 10*3/uL Immature Gran # 0.47 H (0.00-0.04) X 10*3/uL Eosinophils # 0.54 H (0.04-0.35) X 10*3/uL Basophils # 0.16 H (0.00-0.10) X 10*3/uL Sodium 131 L (135-145) mmol/L Chloride 92 L (96-109) mmol/L Anion Gap 13.10 H (4.00-12.00) mmol/L BUN 80.4 H (9.0-27.0) mg/dL Est GFR (CKD-EPI) 51 L (>=60) BUN/Creatinine Ratio 73.09 H (12.00-20.00) Ratio Glucose 201 H (70-110) mg/dL POC Glucose (mg/dL) 313 H (70-110) mg/dL Total Bilirubin <0.2 L (0.3-1.2) mg/dL Alkaline Phosphatase 233 H (41-126) U/L Albumin 3.3 L (3.8-4.9) g/dL Albumin/Globulin Ratio 1.03 L (1.60-3.17) Ratio 06/26/24 Range/Units 07:27 WBC (4.50-10.00) X 10*3/uL RBC (4.10-5.20) X 10*6/uL Hgb (12.0-15.0) g/dL Hct (37.2-46.3) % MCH (27.0-32.0) pg MCHC (32.0-37.0) g/dL RDW (11.5-14.5) % Plt Count (140-440) X 10*3/uL Immature Gran # (0.00-0.04) X 10*3/uL Eosinophils # (0.04-0.35) X 10*3/uL Basophils # (0.00-0.10) X 10*3/uL Sodium (135-145) mmol/L Chloride (96-109) mmol/L Anion Gap (4.00-12.00) mmol/L BUN (9.0-27.0) mg/dL Est GFR (CKD-EPI) (>=60) BUN/Creatinine Ratio (12.00-20.00) Ratio Glucose (70-110) mg/dL POC Glucose (mg/dL) 188 H (70-110) mg/dL Total Bilirubin (0.3-1.2) mg/dL Alkaline Phosphatase (41-126) U/L Albumin (3.8-4.9) g/dL Albumin/Globulin Ratio (1.60-3.17) Ratio Microbiology - Last 24 Hours (Table) 06/22/24 17:09 Gram Stain - Final Sputum Sputum Culture - Final Assessment and Plan Plan: Assessment: 1. 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 Sodium level gradually improving and is 131 this morning. TSH normal. Urine sodium 65 and urine osmolality 586. Cortisol level 24.7. 2. UTI on antibiotics. 3. Benign hypertension. Stable. 4. Diabetes mellitus. 5. Hypomagnesemia from poor intake. Replaced. Improved. 6. Acute kidney injury secondary to vasomotor nephropathy secondary to diuresis. Renal function improved. Creatinine 1.1. Plan: Maintain urea twice daily. Maintain oral Lasix 60 mg twice daily which is her home dose. Encouraged oral intake. Maintain fluid restriction. Hold amlodipine for systolic blood pressure less than 120. Workup for malignancy was discussed with her primary attending physician. CT scan this admission does not show any obvious malignancy. Follow-up PTH related peptide. Follow-up outpatient 1 week postdischarge.
[2024-06-26 12:38] LABS: Glucose,Whole Blood 278 mg/dL (70-110)
--- NOTE | 2024-06-26 12:48 | P.PN ---
Subjective Progress Note Date: 06/26/24 HISTORY OF PRESENT ILLNESS: This is a 78 year old female with a previous medical history signif icant for hypertension and hypertensive cardiovascular disease, hyperlipidemia, diabetes mellitus type 2, and diabetic polyneuropathy, GERD with duodenal ulcer, and obesity with obstructive sleep apnea, and obesity hypoventilation syndrome, chronic diastolic heart filure, patient was last hospitalized at [facility] about a year ago with accelerated hypertension and hypervolemic hyponatremia and was sen by cardiology and nephrology, patient was recently to be treated as an outpatient for urinary tract infection, but she has numerous allergies/limited antibiotic use, she stated that she only can use Bactrim and she was given a smaller dose due to her creatinine clearance, patient stated that she is not feeling better with that, so she ended up coming to the emergency department [facility] emergency department yesterday she was found to have severe hyponatremia with a sodium of 113 and severe hypochloremia as well, she was started on IV fluid resuscitation in the form of normal saline at 50 cc an hour, her sodium is up to 115 she continues to be severely hyponatremic, she will be admitted to the ICU, patient may need to be started on 3% hypertonic to try to improve her sodium up to like 120 nephrology consultation was obtained, I obtain serum osmolality, urine osmolality, urine sodium, cortisol level, TSH and free T4, patient also was found to have urinary tract infection, urine culture was sent blood culture was sent I started the patient on Azactam 1 g IV piggyback every 8 hours, continue Bactrim IV piggyback for now until further recommendation by ID. 06/22: Patient sitting up in chair no apparent distress, she is on room air, her oxygenation is 95%, she is complaining of increased coughing, minimal from production, chest x-ray showed evidence of possible acute infiltrate, versus atelectasis, she was started on Azactam 2 g piggyback every 8 hours, she was taken off Bactrim, she was seen in consultation by nephrology as well as by pulmonary medicine, she was started on 3%, her sodium is up to 119, I started the patient on Lasix 40 mg IV push every 12 hours, input and output and daily weight, continue fluid restriction to 1500 cc over 24 hours, follow-up with the patient very closely. 06/23: Patient sitting up in bed in no apparent distress, she continues to be on room air, oxygenation is 97%, chest x-ray showed evidence of right middle lobe and lower lobe pneumonia, this is likely aspiration pneumonia at this time, patient is having some issues with swallowing, speech therapy evaluation, continue Azactam as the patient is allergic to numerous antibiotic, pulmonary as well as ID is following, repeat sodium level today, she did receive 1 dose of Samsca yesterday, she did receive 1 dose of Lasix yesterday as well, follow-up with the patient very closely, 06/24: Patient is sitting up in recliner chair in no apparent distress, she ambulated using her walker, she continues to be on Azactam 2 g piggyback every 8 hours, she has been responding very well to the treatment plan, her sodium is up to 124, continue fluid restriction, she did receive Samsca as well as Lasix, repeat sodium tomorrow morning, continue follow-up with the patient very closel y, the plan is for the patient to go home with home health care. 06/25: Patient sitting up in bed in no apparent distress, she is feeling a lot better today, her sodium is up to 130, she denies any chest pain, she continues to have some cough with feeding, she possibly aspirating on and off, will co ntinue with Azactam 2 g piggyback every 8 hours, follow-up with the patient very closely. Patient can be discharged home hopefully in the next 24 hours 06/26: Patient sitting up in the recliner chair no apparent distress, she denies any chest pain, shortness of breath, her sodium is up to 131, she has been treated for SIADH with decreased oral solute as well, her sodium is a lot better, she has been on Lasix 60 mg orally twice every day, she has been on urea 15 g orally twice every day, continue current treatment plan, increase activity, hopefully patient can be discharged home in the next 1 to 2 days per REVIEW OF SYSTEMS: Constitutional: No documented fever, no chills, no night sweats. No weight change. Positive for weakness, fatigue or lethargy. No daytime sleepiness. HEENT: No headache. No blurred vision or double vision, no loss of vision. No loss of Hearing, no ringing in the ears, no dizziness. No nasal drainage or congestion. No epistaxis. No sore throat. Lungs: Positive for shortness of breath, positive for cough, positive for sputum production. No wheezing. Reports dyspnea with activity. Cardiovascular: No chest pain, positive for lower extremity edema. Positive for palpitations. negative for paroxysmal nocturnal dyspnea. Negative for orthopnea. No lightheadedness or dizziness. No syncopal episodes. Abdominal: Reports abdominal pain. No nausea, vomiting. No diarrhea. No constipation. No bloody or tarry stools reports loss of appetite. Genitourinary: Positive for dysuria, increased frequency, urgency. No urinary retention. Musculoskeletal: No myalgias. Positive muscle weakness, positive for gait dysfunction, no frequent falls. positive for back pain. No neck pain. Integumentary: No wounds, no lesions. No rash or pruritus. No unusual bruising. No change in hair or nails. Neurologic: No aphasia. No facial droop. No change in mentation. No head injury. No headache. No paralysis. positive for facial paresthesia. Psychiatric: positive for depression, positive for anxiety. No mood swings. Endocrine: abnormal blood sugars. positive for weight change. PHYSICAL EXAMINATION: General: 78 year old female sitting up in bed no apparent distress. HEENT: Head is atraumatic, normocephalic, pupils were equal round reactive to light and recommendation, extraocular muscle movement were intact, sclera nonicteric, conjunctivae were pale, mucous membranes of the mouth are somewhat dry. Neck: Supple, no JVP, normal carotid upstroke bilaterally, no lymphadenopathy. Chest: Decreased breath sounds at the bases, few rhonchi, no expiratory wheezes, no chest wall tenderness, no intercostal retractions. Heart: First heart sound is normal, second heart sound is normal there is BIANCA 2/6 located at the left sternal border. Abdomen: Soft, obese nontender, nondistended, positive bowel sounds. Extremities: There is +1 edema no calf tenderness DP +2 bilaterally. Neurologic examination: Patient is awake alert and oriented X3, cranial nerves II-12 appear grossly intact, muscle power were 4 out of 5 in upper extremities and 4 out of 5 in bilateral lower extremities, deep tendon reflexes normal bilaterally. ASSESSMENT AND PLAN: 1. 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 Continue fluid restriction, her sodium is 130 today follow-up with the patient in the next 24 hours she can be discharged home in the next 24 hours if she is ambulating well today, continue with urea 15 gr po bid 2. Recurrent UTI . Repeat urine cultures negative for infection at this time. 3. Right middle lobe and lower lobe pneumonia likely aspiration pneumonia continue patient on Azactam 2 g piggyback every 8 hours, sputum culture, blood cultures, pulmonary is following, ID is following, patient has multiple allergies which limits the antibiotic use 4. Hypertension and hypertensive cardiovascular disease. we will continue with Atenolol 50 mg po bid, Clonidine 0.2 mg 1 tabs po at bedtime, Losartan 100 mg po daily, Amlodipine 5 mg orally daily and we will continue with BP monitoring. 5. Mixed hyperlipidemia. we will continue with low cholesterol diet and exercise and weight loss, patient is not taking any statin at this time, and she refused PCSK9 inhibitor keep LDL-c 55-70 6. Diabetes Mellitus type 2. we will continue with Lantus 12 units at bedtime along with SSI and we will continue with Metformin 1000 mg po daily and Pioglitasone 30 mg po daily, BGM before each meal and at bedtime. 7. Obesity and obstructive sleep apnea and OHS. not able to tolerate CPAP. 8. Vitamin D deficiency. we will continue with vitamin d supplements. 9. Asthma. stable. 10. GERD with PUD. we will continue with Protonix 40 mg IVP daily. 11. Anxiety.we will continue with Xanax as needed. 12. Paroxysmal atrial fibrillation currently in sinus rhythm. Patient is not a candidate for anticoagulation because of recurrent GI bleed. Continue atenolol 50 mg orally twice every day monitor the patient symptoms very closely. 13. DVT Prophylaxis continue heparin 5000 units subcutaneously every 8 hours per. 14. GI Prophylaxis . we will continue with Pantoprazole 40 mg IV push daily. 15. Anemia multifactorial. Check iron studies, B12, folic acid, check kappa and lambda light chain serum protein electrophoresis LDH and haptoglobin. 16 . 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 patient can be discharged home on Friday with home health care Objective - Vital Signs Vital signs: Vital Signs Temp 97.6 F 06/26/24 07:21 Pulse 53 L 06/26/24 07:21 Resp 16 06/26/24 07:21 BP 126/58 06/26/24 07:21 Pulse Ox 98 06/26/24 07:21 FiO2 Intake & Output 06/25/24 06/26/24 06/26/24 18:59 06:59 18:59 Intake Total 240 462 Balance 240 462 Weight 113.3 kg 112.2 kg Intake: Oral 240 462 Other: Voiding Method Bedside Commode Bedside Commode Bedside Commode # Voids 1 1 # Bowel Movements 4 1 - Labs CBC & Chem 7: 06/26/24 05:34 06/26/24 05:34 Labs: Abnormal Lab Results - Last 24 Hours (Table) 06/25/24 06/25/24 06/25/24 Range/Units 12:27 17:12 20:31 WBC (4.50-10.00) X 10*3/uL RBC (4.10-5.20) X 10*6/uL Hgb (12.0-15.0) g/dL Hct (37.2-46.3) % MCH (27.0-32.0) pg MCHC (32.0-37.0) g/dL RDW (11.5-14.5) % Plt Count (140-440) X 10*3/uL Immature Gran # (0.00-0.04) X 10*3/uL Eosinophils # (0.04-0.35) X 10*3/uL Basophils # (0.00-0.10) X 10*3/uL Sodium (135-145) mmol/L Chloride (96-109) mmol/L Anion Gap (4.00-12.00) mmol/L BUN (9.0-27.0) mg/dL Est GFR (CKD-EPI) (>=60) BUN/Creatinine Ratio (12.00-20.00) Ratio Glucose (70-110) mg/dL POC Glucose (mg/dL) 252 H 162 H 234 H (70-110) mg/dL Total Bilirubin (0.3-1.2) mg/dL Alkaline Phosphatase (41-126) U/L Albumin (3.8-4.9) g/dL Albumin/Globulin Ratio (1.60-3.17) Ratio 06/26/24 06/26/24 06/26/24 Range/Units 00:30 05:34 05:34 WBC 12.59 H (4.50-10.00) X 10*3/uL RBC 3.28 L (4.10-5.20) X 10*6/uL Hgb 8.3 L (12.0-15.0) g/dL Hct 27.3 L (37.2-46.3) % MCH 25.3 L (27.0-32.0) pg MCHC 30.4 L (32.0-37.0) g/dL RDW 15.6 H (11.5-14.5) % Plt Count 671 H (140-440) X 10*3/uL Immature Gran # 0.47 H (0.00-0.04) X 10*3/uL Eosinophils # 0.54 H (0.04-0.35) X 10*3/uL Basophils # 0.16 H (0.00-0.10) X 10*3/uL Sodium 131 L (135-145) mmol/L Chloride 92 L (96-109) mmol/L Anion Gap 13.10 H (4.00-12.00) mmol/L BUN 80.4 H (9.0-27.0) mg/dL Est GFR (CKD-EPI) 51 L (>=60) BUN/Creatinine Ratio 73.09 H (12.00-20.00) Ratio Glucose 201 H (70-110) mg/dL POC Glucose (mg/dL) 313 H (70-110) mg/dL Total Bilirubin <0.2 L (0.3-1.2) mg/dL Alkaline Phosphatase 233 H (41-126) U/L Albumin 3.3 L (3.8-4.9) g/dL Albumin/Globulin Ratio 1.03 L (1.60-3.17) Ratio 06/26/24 Range/Units 07:27 WBC (4.50-10.00) X 10*3/uL RBC (4.10-5.20) X 10*6/uL Hgb (12.0-15.0) g/dL Hct (37.2-46.3) % MCH (27.0-32.0) pg MCHC (32.0-37.0) g/dL RDW (11.5-14.5) % Plt Count (140-440) X 10*3/uL Immature Gran # (0.00-0.04) X 10*3/uL Eosinophils # (0.04-0.35) X 10*3/uL Basophils # (0.00-0.10) X 10*3/uL Sodium (135-145) mmol/L Chloride (96-109) mmol/L Anion Gap (4.00-12.00) mmol/L BUN (9.0-27.0) mg/dL Est GFR (CKD-EPI) (>=60) BUN/Creatinine Ratio (12.00-20.00) Ratio Glucose (70-110) mg/dL POC Glucose (mg/dL) 188 H (70-110) mg/dL Total Bilirubin (0.3-1.2) mg/dL Alkaline Phosphatase (41-126) U/L Albumin (3.8-4.9) g/dL Albumin/Globulin Ratio (1.60-3.17) Ratio Microbiology - Last 24 Hours (Table) 06/22/24 17:09 Gram Stain - Final Sputum Sputum Culture - Final
--- NOTE | 2024-06-26 16:09 | P.PN ---
Subjective Progress Note Date: 06/26/24 Principal diagnosis: Reason for follow-up is UTI and a question of pneumonia Patient is a 78-year-old female with a past medical history significant for diabetes mellitus reflux hypertension hyperlipidemia asthma anxiety presenting to the hospital for evaluation of weakness has been diagnosed with a UTI failing outpatient therapy and the question of possible pneumonia. On today's evaluation that is 06/26/2024, patient did not have any fever and denies any chills, patient is breathing comfortably on room air, patient with no chest pain did have occasional cough with some clear sputum production patient did not have any abdominal pain nausea vomiting or any loose stools. Bloody sputum culture have been negative white count is down to 12.59 creatinine is 1.1 Objective - Vital Signs Vital signs: Vital Signs Temp 97.8 F 06/26/24 11:32 Pulse 51 L 06/26/24 11:32 Resp 16 06/26/24 11:32 BP 139/56 06/26/24 11:32 Pulse Ox 97 06/26/24 11:32 FiO2 Intake & Output 06/25/24 06/26/24 06/26/24 18:59 06:59 18:59 Intake Total 240 462 Balance 240 462 Weight 113.3 kg 112.2 kg Intake: Oral 240 462 Other: Voiding Method Bedside Commode Bedside Commode Bedside Commode # Voids 1 1 # Bowel Movements 4 1 - Exam GENERAL DESCRIPTION: An elderly male up in a chair in no distress RESPIRATORY SYSTEM: Unlabored breathing , decreased breath sounds at bases HEART: S1 S2 regular rate and rhythm , ABDOMEN: Soft , no tenderness EXTREMITIES: No edema feet - Labs CBC & Chem 7: 06/26/24 05:34 06/26/24 05:34 Labs: Abnormal Lab Results - Last 24 Hours (Table) 06/25/24 06/25/24 06/26/24 Range/Units 17:12 20:31 00:30 WBC (4.50-10.00) X 10*3/uL RBC (4.10-5.20) X 10*6/uL Hgb (12.0-15.0) g/dL Hct (37.2-46.3) % MCH (27.0-32.0) pg MCHC (32.0-37.0) g/dL RDW (11.5-14.5) % Plt Count (140-440) X 10*3/uL Immature Gran # (0.00-0.04) X 10*3/uL Eosinophils # (0.04-0.35) X 10*3/uL Basophils # (0.00-0.10) X 10*3/uL Sodium (135-145) mmol/L Chloride (96-109) mmol/L Anion Gap (4.00-12.00) mmol/L BUN (9.0-27.0) mg/dL Est GFR (CKD-EPI) (>=60) BUN/Creatinine Ratio (12.00-20.00) Ratio Glucose (70-110) mg/dL POC Glucose (mg/dL) 162 H 234 H 313 H (70-110) mg/dL Total Bilirubin (0.3-1.2) mg/dL Alkaline Phosphatase (41-126) U/L Albumin (3.8-4.9) g/dL Albumin/Globulin Ratio (1.60-3.17) Ratio 06/26/24 06/26/24 06/26/24 Range/Units 05:34 05:34 07:27 WBC 12.59 H (4.50-10.00) X 10*3/uL RBC 3.28 L (4.10-5.20) X 10*6/uL Hgb 8.3 L (12.0-15.0) g/dL Hct 27.3 L (37.2-46.3) % MCH 25.3 L (27.0-32.0) pg MCHC 30.4 L (32.0-37.0) g/dL RDW 15.6 H (11.5-14.5) % Plt Count 671 H (140-440) X 10*3/uL Immature Gran # 0.47 H (0.00-0.04) X 10*3/uL Eosinophils # 0.54 H (0.04-0.35) X 10*3/uL Basophils # 0.16 H (0.00-0.10) X 10*3/uL Sodium 131 L (135-145) mmol/L Chloride 92 L (96-109) mmol/L Anion Gap 13.10 H (4.00-12.00) mmol/L BUN 80.4 H (9.0-27.0) mg/dL Est GFR (CKD-EPI) 51 L (>=60) BUN/Creatinine Ratio 73.09 H (12.00-20.00) Ratio Glucose 201 H (70-110) mg/dL POC Glucose (mg/dL) 188 H (70-110) mg/dL Total Bilirubin <0.2 L (0.3-1.2) mg/dL Alkaline Phosphatase 233 H (41-126) U/L Albumin 3.3 L (3.8-4.9) g/dL Albumin/Globulin Ratio 1.03 L (1.60-3.17) Ratio 06/26/24 Range/Units 12:29 WBC (4.50-10.00) X 10*3/uL RBC (4.10-5.20) X 10*6/uL Hgb (12.0-15.0) g/dL Hct (37.2-46.3) % MCH (27.0-32.0) pg MCHC (32.0-37.0) g/dL RDW (11.5-14.5) % Plt Count (140-440) X 10*3/uL Immature Gran # (0.00-0.04) X 10*3/uL Eosinophils # (0.04-0.35) X 10*3/uL Basophils # (0.00-0.10) X 10*3/uL Sodium (135-145) mmol/L Chloride (96-109) mmol/L Anion Gap (4.00-12.00) mmol/L BUN (9.0-27.0) mg/dL Est GFR (CKD-EPI) (>=60) BUN/Creatinine Ratio (12.00-20.00) Ratio Glucose (70-110) mg/dL POC Glucose (mg/dL) 278 H (70-110) mg/dL Total Bilirubin (0.3-1.2) mg/dL Alkaline Phosphatase (41-126) U/L Albumin (3.8-4.9) g/dL Albumin/Globulin Ratio (1.60-3.17) Ratio Microbiology - Last 24 Hours (Table) 06/21/24 07:11 Blood Culture - Final Blood Assessment and Plan (1) Allergy to multiple antibiotics Current Visit: Yes Status: Acute Code(s): Z88.1 - ALLERGY STATUS TO OTHER A NTIBIOTIC AGENTS SNOMED Code(s): 257478547 (2) UTI (urinary tract infection) Current Visit: Yes Status: Acute Code(s): N39.0 - URINARY TRACT INFECTION, SITE NOT SPECIFIED SNOMED Code(s): 01645892 (3) Pneumonia Current Visit: Yes Status: Acute Code(s): J18.9 - PNEUMONIA, UNSPECIFIED ORGANISM SNOMED Code(s): 651281624 Plan: 1patient presented hospital with generalized weakness no energy she also have urinary burning and frequency significantly positive UA likely concerning for symptomatic UTI from enteric gram-negative pathogen failing outpatient oral Bactrim DS therapy patient CT abdomen pelvis concerning for some multifocal infiltrate the lung bases but no significant cough clinical suspicious low for pneumonia especially of aspiration etiology but not entirely excluded 2-patient with multiple antibiotic ALLERGIES that would limit the number of antibiotic safe to use 3-blood and sputum cultures has been negative so far 4patient is afebrile patient white count is down to 12,000 currently being treated Azactam because of her multiple antibiotic allergies, question concern answered Dictation was produced using [email or web address] dictation software. please excuse any grammatical, word or spelling errors. Time with Patient: Less than 30
[2024-06-26 17:42] LABS: Glucose,Whole Blood 208 mg/dL (70-110)
[2024-06-26 20:20] LABS: Glucose,Whole Blood 255 mg/dL (70-110)
[2024-06-27 07:42] VITALS: RESP 16
[2024-06-27 07:43] LABS: Glucose,Whole Blood 174 mg/dL (70-110)
[2024-06-27 09:17] LABS: Basophils # (A) 0.13 X 10*3/uL (0.00-0.10); Basophils % (A) 0.9 %; Eosinophils # (A) 0.61 X 10*3/uL (0.04-0.35); Eosinophils % (A) 4.4 %; HCT 24.2 % (37.2-46.3); HGB 7.5 g/dL (12.0-15.0); Lymphocytes # (A) 4.27 X 10*3/uL (0.90-5.00); Lymphocytes % (A) 31.1 %; MCH 25.7 pg (27.0-32.0); MCV 82.9 FL (80.0-97.0); Monocytes # (A) 1.15 X 10*3/uL (0.20-1.00); Monocytes % (A) 8.4 %; NRBC Per 100 WBC 0 X 10*3/uL (0.00-0.01); Neutrophils % (A) 52.6 %; Platelet Count 624 X 10*3/uL (140-440); RBC 2.92 X 10*6/uL (4.10-5.20); RDW 15.7 % (11.5-14.5); WBC 13.71 X 10*3/uL (4.50-10.00)
[2024-06-27 09:34] LABS: ALT 28 U/L (8-44); AST 29 U/L (13-35); Albumin 3.2 g/dL (3.8-4.9); Albumin/Globulin Ratio 1.07 Ratio (1.60-3.17); Alkaline Phosphatase 214 U/L (41-126); BUN/Creat Ratio 74.08 Ratio (12.00-20.00); Blood Urea Nitrogen 88.9 mg/dL (9.0-27.0); Calcium 9.7 mg/dL (8.7-10.3); Carbon Dioxide 26.5 mmol/L (21.6-31.8); Chloride 93 mmol/L (96-109); Glucose 152 mg/dL (70-110); Potassium 4.7 mmol/L (3.5-5.5); Sodium 131 mmol/L (135-145); Total Bilirubin <0.2 mg/dL (0.3-1.2); Total Protein 6.2 g/dL (6.2-8.2)
--- NOTE | 2024-06-27 10:50 | P.PN ---
Subjective Patient is seen in follow-up for hyponatremia. Sodium level stable at 131 this morning. On oral Lasix. Nonoliguric. Oral intake also gradually improving. Renal function stable. No active complaints. Vital signs are stable. General: No acute distress. HEENT: Head exam is unremarkable. LUNGS: No audible rhonchi or wheezes. HEART: Rate and Rhythm are regular. ABDOMEN: Nontender. Obese. EXTREMITITES: 2+ edema. Objective - Vital Signs Vital signs: Vital Signs Temp 98.1 F 06/27/24 07:12 Pulse 67 06/27/24 07:12 Resp 16 06/27/24 07:12 BP 160/67 06/27/24 07:12 Pulse Ox 94 L 06/27/24 07:12 FiO2 Intake & Output 06/26/24 06/27/24 06/27/24 18:59 06:59 18:59 Intake Total 240 540 Balance 240 540 Intake: Oral 240 540 Other: Voiding Method Bedside Commode Bedside Commode # Voids 1 1 1 # Bowel Movements 1 1 1 - Labs CBC & Chem 7: 06/27/24 03:49 06/27/24 03:49 Labs: Abnormal Lab Results - Last 24 Hours (Table) 06/26/24 06/26/24 06/26/24 Range/Units 12:29 17:35 20:18 WBC (4.50-10.00) X 10*3/uL RBC (4.10-5.20) X 10*6/uL Hgb (12.0-15.0) g/dL Hct (37.2-46.3) % MCH (27.0-32.0) pg MCHC (32.0-37.0) g/dL RDW (11.5-14.5) % Plt Count (140-440) X 10*3/uL Immature Gran # (0.00-0.04) X 10*3/uL Monocytes # (0.20-1.00) X 10*3/uL Eosinophils # (0.04-0.35) X 10*3/uL Basophils # (0.00-0.10) X 10*3/uL Sodium (135-145) mmol/L Chloride (96-109) mmol/L BUN (9.0-27.0) mg/dL Est GFR (CKD-EPI) (>=60) BUN/Creatinine Ratio (12.00-20.00) Ratio Glucose (70-110) mg/dL POC Glucose (mg/dL) 278 H 208 H 255 H (70-110) mg/dL Total Bilirubin (0.3-1.2) mg/dL Alkaline Phosphatase (41-126) U/L Albumin (3.8-4.9) g/dL Albumin/Globulin Ratio (1.60-3.17) Ratio 06/27/24 06/27/24 06/27/24 Range/Units 03:49 03:49 07:22 WBC 13.71 H (4.50-10.00) X 10*3/uL RBC 2.92 L (4.10-5.20) X 10*6/uL Hgb 7.5 L (12.0-15.0) g/dL Hct 24.2 L (37.2-46.3) % MCH 25.7 L (27.0-32.0) pg MCHC 31.0 L (32.0-37.0) g/dL RDW 15.7 H (11.5-14.5) % Plt Count 624 H (140-440) X 10*3/uL Immature Gran # 0.35 H (0.00-0.04) X 10*3/uL Monocytes # 1.15 H (0.20-1.00) X 10*3/uL Eosinophils # 0.61 H (0.04-0.35) X 10*3/uL Basophils # 0.13 H (0.00-0.10) X 10*3/uL Sodium 131 L (135-145) mmol/L Chloride 93 L (96-109) mmol/L BUN 88.9 H (9.0-27.0) mg/dL Est GFR (CKD-EPI) 46 L (>=60) BUN/Creatinine Ratio 74.08 H (12.00-20.00) Ratio Glucose 152 H (70-110) mg/dL POC Glucose (mg/dL) 174 H (70-110) mg/dL Total Bilirubin <0.2 L (0.3-1.2) mg/dL Alkaline Phosphatase 214 H (41-126) U/L Albumin 3.2 L (3.8-4.9) g/dL Albumin/Globulin Ratio 1.07 L (1.60-3.17) Ratio Microbiology - Last 24 Hours (Table) 06/21/24 07:11 Blood Culture - Final Blood Assessment and Plan Plan: Assessment: 1. 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 Sodium level gradually improving and is stable at 131 this morning. TSH normal. Urine sodium 65 and urine osmolality 586. Cortisol level 24.7. 2. UTI on antibiotics. 3. Benign hypertension. Stable. 4. Diabetes mellitus. 5. Hypomagnesemia from poor intake. Replaced. Improved. 6. Acute kidney injury secondary to vasomotor nephropathy secondary to diuresis. Renal function improved. Creatinine stable at 1.2. Plan: Discontinue urea. Maintain oral Lasix 60 mg twice daily which is her home dose. Encouraged oral intake. Maintain fluid restriction. Hold amlodipine for systolic blood pressure less than 120. Workup for malignancy was discussed with her primary attending physician. CT scan this admission does not show any obvious malignancy. Follow-up PTH related peptide. Follow-up outpatient 1 week postdischarge.
--- NOTE | 2024-06-27 11:46 | P.PN ---
Subjective Progress Note Date: 06/27/24 HISTORY OF PRESENT ILLNESS: This is a 78 year old female with a previous medical history signif icant for hypertension and hypertensive cardiovascular disease, hyperlipidemia, diabetes mellitus type 2, and diabetic polyneuropathy, GERD with duodenal ulcer, and obesity with obstructive sleep apnea, and obesity hypoventilation syndrome, chronic diastolic heart filure, patient was last hospitalized at [facility] about a year ago with accelerated hypertension and hypervolemic hyponatremia and was sen by cardiology and nephrology, patient was recently to be treated as an outpatient for urinary tract infection, but she has numerous allergies/limited antibiotic use, she stated that she only can use Bactrim and she was given a smaller dose due to her creatinine clearance, patient stated that she is not feeling better with that, so she ended up coming to the emergency department [facility] emergency department yesterday she was found to have severe hyponatremia with a sodium of 113 and severe hypochloremia as well, she was started on IV fluid resuscitation in the form of normal saline at 50 cc an hour, her sodium is up to 115 she continues to be severely hyponatremic, she will be admitted to the ICU, patient may need to be started on 3% hypertonic to try to improve her sodium up to like 120 nephrology consultation was obtained, I obtain serum osmolality, urine osmolality, urine sodium, cortisol level, TSH and free T4, patient also was found to have urinary tract infection, urine culture was sent blood culture was sent I started the patient on Azactam 1 g IV piggyback every 8 hours, continue Bactrim IV piggyback for now until further recommendation by ID. 06/22: Patient sitting up in chair no apparent distress, she is on room air, her oxygenation is 95%, she is complaining of increased coughing, minimal from production, chest x-ray showed evidence of possible acute infiltrate, versus atelectasis, she was started on Azactam 2 g piggyback every 8 hours, she was taken off Bactrim, she was seen in consultation by nephrology as well as by pulmonary medicine, she was started on 3%, her sodium is up to 119, I started the patient on Lasix 40 mg IV push every 12 hours, input and output and daily weight, continue fluid restriction to 1500 cc over 24 hours, follow-up with the patient very closely. 06/23: Patient sitting up in bed in no apparent distress, she continues to be on room air, oxygenation is 97%, chest x-ray showed evidence of right middle lobe and lower lobe pneumonia, this is likely aspiration pneumonia at this time, patient is having some issues with swallowing, speech therapy evaluation, continue Azactam as the patient is allergic to numerous antibiotic, pulmonary as well as ID is following, repeat sodium level today, she did receive 1 dose of Samsca yesterday, she did receive 1 dose of Lasix yesterday as well, follow-up with the patient very closely, 06/24: Patient is sitting up in recliner chair in no apparent distress, she ambulated using her walker, she continues to be on Azactam 2 g piggyback every 8 hours, she has been responding very well to the treatment plan, her sodium is up to 124, continue fluid restriction, she did receive Samsca as well as Lasix, repeat sodium tomorrow morning, continue follow-up with the patient very closel y, the plan is for the patient to go home with home health care. 06/25: Patient sitting up in bed in no apparent distress, she is feeling a lot better today, her sodium is up to 130, she denies any chest pain, she continues to have some cough with feeding, she possibly aspirating on and off, will co ntinue with Azactam 2 g piggyback every 8 hours, follow-up with the patient very closely. Patient can be discharged home hopefully in the next 24 hours 06/26: Patient sitting up in the recliner chair no apparent distress, she denies any chest pain, shortness of breath, her sodium is up to 131, she has been treated for SIADH with decreased oral solute as well, her sodium is a lot better, she has been on Lasix 60 mg orally twice every day, she has been on urea 15 g orally twice every day, continue current treatment plan, increase activity, hopefully patient can be discharged home in the next 1 to 2 days. 06/27: Patient sitting up in bed in no apparent distress, she denies any chest pain, shortness of breath, she is feeling a bit better today than yesterday, her sodium today is 131 same as yesterday, continue to work with physical therapy, recommended for the patient to go to subacute rehabilitation, however the patient wanted to go home with home health care, she will be discharged home tomorrow morning, her BUN is climbing to 88 today, discussed with nephrology possibly discontinue urea for today, increase oral intake, repeat BMP tomorrow REVIEW OF SYSTEMS: Constitutional: No documented fever, no chills, no night sweats. No weight change. Positive for weakness, fatigue or lethargy. No daytime sleepiness. HEENT: No headache. No blurred vision or double vision, no loss of vision. No loss of Hearing, no ringing in the ears, no dizziness. No nasal drainage or congestion. No epistaxis. No sore throat. Lungs: Positive for shortness of breath, positive for cough, positive for sputum production. No wheezing. Reports dyspnea with activity. Cardiovascular: No chest pain, positive for lower extremity edema. Positive for palpitations. negative for paroxysmal nocturnal dyspnea. Negative for orthopnea. No lightheadedness or dizziness. No syncopal episodes. Abdominal: Reports abdominal pain. No nausea, vomiting. No diarrhea. No constipation. No bloody or tarry stools reports loss of appetite. Genitourinary: Positive for dysuria, increased frequency, urgency. No urinary retention. Musculoskeletal: No myalgias. Positive muscle weakness, positive for gait dysfunction, no frequent falls. positive for back pain. No neck pain. Integumentary: No wounds, no lesions. No rash or pruritus. No unusual bruising. No change in hair or nails. Neurologic: No aphasia. No facial droop. No change in mentation. No head injury. No headache. No paralysis. positive for facial paresthesia. Psychiatric: positive for depression, positive for anxiety. No mood swings. Endocrine: abnormal blood sugars. positive for weight change. PHYSICAL EXAMINATION: General: 78 year old female sitting up in bed no apparent distress. HEENT: Head is atraumatic, normocephalic, pupils were equal round reactive to light and recommendation, extraocular muscle movement were intact, sclera nonicteric, conjunctivae were pale, mucous membranes of the mouth are somewhat dry. Neck: Supple, no JVP, normal carotid upstroke bilaterally, no lymphadenopathy. Chest: Decreased breath sounds at the bases, few rhonchi, no expiratory wheezes, no chest wall tenderness, no intercostal retractions. Heart: First heart sound is normal, second heart sound is normal there is BIANCA 2/6 located at the left sternal border. Abdomen: Soft, obese nontender, nondistended, positive bowel sounds. Extremities: There is +1 edema no calf tenderness DP +2 bilaterally. Neurologic examination: Patient is awake alert and oriented X3, cranial nerves II-12 appear grossly intact, muscle power were 4 out of 5 in upper extremities and 4 out of 5 in bilateral lower extremities, deep tendon reflexes normal bilaterally. ASSESSMENT AND PLAN: 1. 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 Continue fluid restriction, her sodium is 131 today her BUN is climbing a bit, she has been on urea 15 g orally twice every day we will discontinue that, she has been on fluid restriction 1500 cc every 24 hours, discussed with nephrology. Possibly decreasing Lasix to 40 mg orally twice a day 2. Recurrent UTI . Repeat urine cultures negative for infection at this time. Continue Azactam 2 g piggyback every 8 hours. 3. Right middle lobe and lower lobe pneumonia likely aspiration pneumonia continue patient on Azactam 2 g piggyback every 8 hours, sputum culture, blood cultures, pulmonary is following, ID is following, patient has multiple allergies which limits the antibiotic use 4. Hypertension and hypertensive cardiovascular disease. we will continue with Atenolol 50 mg po bid, Clonidine 0.2 mg 1 tabs po at bedtime, Losartan 100 mg po daily, Amlodipine 5 mg orally daily and we will continue with BP monitoring. 5. Mixed hyperlipidemia. we will continue with low cholesterol diet and exercise and weight loss, patient is not taking any statin at this time, and she refused PCSK9 inhibitor keep LDL-c 55-70 6. Diabetes Mellitus type 2. we will continue with Lantus 12 units at bedtime along with SSI and we will continue with Metformin 1000 mg po daily and Pioglitasone 30 mg po daily, BGM before each meal and at bedtime. 7. Obesity and obstructive sleep apnea and OHS. not able to tolerate CPAP. 8. Vitamin D deficiency. we will continue with vitamin d supplements. 9. Asthma. stable. 10. GERD with PUD. we will continue with Protonix 40 mg IVP daily. 11. Anxiety.we will continue with Xanax as needed. 12. Paroxysmal atrial fibrillation currently in sinus rhythm. Patient is not a candidate for anticoagulation because of recurrent GI bleed. Continue atenolol 50 mg orally twice every day monitor the patient symptoms very closely. 13. DVT Prophylaxis continue heparin 5000 units subcutaneously every 8 hours per. 14. GI Prophylaxis . we will continue with Pantoprazole 40 mg IV push daily. 15. Anemia multifactorial. Check iron studies, B12, folic acid, check kappa and lambda light chain serum protein electrophoresis LDH and haptoglobin. 16 . 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 patient can be discharged home on Friday with home health care Objective - Vital Signs Vital signs: Vital Signs Temp 98.1 F 06/27/24 07:12 Pulse 67 06/27/24 07:12 Resp 16 06/27/24 07:12 BP 160/67 06/27/24 07:12 Pulse Ox 94 L 06/27/24 07:12 FiO2 Intake & Output 06/26/24 06/27/24 06/27/24 18:59 06:59 18:59 Intake Total 240 540 Balance 240 540 Intake: Oral 240 540 Other: Voiding Method Bedside Commode Bedside Commode # Voids 1 1 1 # Bowel Movements 1 1 1 - Labs CBC & Chem 7: 06/27/24 03:49 06/27/24 03:49 Labs: Abnormal Lab Results - Last 24 Hours (Table) 06/26/24 06/26/24 06/26/24 Range/Units 05:34 12:29 17:35 WBC 12.59 H (4.50-10.00) X 10*3/uL RBC 3.28 L (4.10-5.20) X 10*6/uL Hgb 8.3 L (12.0-15.0) g/dL Hct 27.3 L (37.2-46.3) % MCH 25.3 L (27.0-32.0) pg MCHC 30.4 L (32.0-37.0) g/dL RDW 15.6 H (11.5-14.5) % Plt Count 671 H (140-440) X 10*3/uL Immature Gran # 0.47 H (0.00-0.04) X 10*3/uL Monocytes # (0.20-1.00) X 10*3/uL Eosinophils # 0.54 H (0.04-0.35) X 10*3/uL Basophils # 0.16 H (0.00-0.10) X 10*3/uL Sodium (135-145) mmol/L Chloride (96-109) mmol/L BUN (9.0-27.0) mg/dL Est GFR (CKD-EPI) (>=60) BUN/Creatinine Ratio (12.00-20.00) Ratio Glucose (70-110) mg/dL POC Glucose (mg/dL) 278 H 208 H (70-110) mg/dL Total Bilirubin (0.3-1.2) mg/dL Alkaline Phosphatase (41-126) U/L Albumin (3.8-4.9) g/dL Albumin/Globulin Ratio (1.60-3.17) Ratio 06/26/24 06/27/24 06/27/24 Range/Units 20:18 03:49 03:49 WBC 13.71 H (4.50-10.00) X 10*3/uL RBC 2.92 L (4.10-5.20) X 10*6/uL Hgb 7.5 L (12.0-15.0) g/dL Hct 24.2 L (37.2-46.3) % MCH 25.7 L (27.0-32.0) pg MCHC 31.0 L (32.0-37.0) g/dL RDW 15.7 H (11.5-14.5) % Plt Count 624 H (140-440) X 10*3/uL Immature Gran # 0.35 H (0.00-0.04) X 10*3/uL Monocytes # 1.15 H (0.20-1.00) X 10*3/uL Eosinophils # 0.61 H (0.04-0.35) X 10*3/uL Basophils # 0.13 H (0.00-0.10) X 10*3/uL Sodium 131 L (135-145) mmol/L Chloride 93 L (96-109) mmol/L BUN 88.9 H (9.0-27.0) mg/dL Est GFR (CKD-EPI) 46 L (>=60) BUN/Creatinine Ratio 74.08 H (12.00-20.00) Ratio Glucose 152 H (70-110) mg/dL POC Glucose (mg/dL) 255 H (70-110) mg/dL Total Bilirubin <0.2 L (0.3-1.2) mg/dL Alkaline Phosphatase 214 H (41-126) U/L Albumin 3.2 L (3.8-4.9) g/dL Albumin/Globulin Ratio 1.07 L (1.60-3.17) Ratio 06/27/24 Range/Units 07:22 WBC (4.50-10.00) X 10*3/uL RBC (4.10-5.20) X 10*6/uL Hgb (12.0-15.0) g/dL Hct (37.2-46.3) % MCH (27.0-32.0) pg MCHC (32.0-37.0) g/dL RDW (11.5-14.5) % Plt Count (140-440) X 10*3/uL Immature Gran # (0.00-0.04) X 10*3/uL Monocytes # (0.20-1.00) X 10*3/uL Eosinophils # (0.04-0.35) X 10*3/uL Basophils # (0.00-0.10) X 10*3/uL Sodium (135-145) mmol/L Chloride (96-109) mmol/L BUN (9.0-27.0) mg/dL Est GFR (CKD-EPI) (>=60) BUN/Creatinine Ratio (12.00-20.00) Ratio Glucose (70-110) mg/dL POC Glucose (mg/dL) 174 H (70-110) mg/dL Total Bilirubin (0.3-1.2) mg/dL Alkaline Phosphatase (41-126) U/L Albumin (3.8-4.9) g/dL Albumin/Globulin Ratio (1.60-3.17) Ratio Microbiology - Last 24 Hours (Table) 06/21/24 07:11 Blood Culture - Final Blood
[2024-06-27 12:22] LABS: Glucose,Whole Blood 311 mg/dL (70-110)
--- NOTE | 2024-06-27 16:31 | P.PN ---
Subjective Progress Note Date: 06/27/24 Principal diagnosis: Reason for follow-up is UTI and a question of pneumonia Patient is a 78-year-old female with a past medical history significant for diabetes mellitus reflux hypertension hyperlipidemia asthma anxiety presenting to the hospital for evaluation of weakness has been diagnosed with a UTI failing outpatient therapy and the question of possible pneumonia. On today's evaluation that is 06/27/2024, Patient is afebrile patient is currently on room air and denies having any shortness of breath, the patient denies any chest pain or cough, the patient denies any nausea vomiting did not have any abdominal pain and no diarrhea. Patient white count is 13.71 creatinine is 1.2 Objective - Vital Signs Vital signs: Vital Signs Temp 97.5 F L 06/27/24 12:13 Pulse 59 L 06/27/24 12:13 Resp 16 06/27/24 12:13 BP 121/84 06/27/24 12:13 Pulse Ox 96 06/27/24 12:13 FiO2 Intake & Output 06/26/24 06/27/24 06/27/24 18:59 06:59 18:59 Intake Total 240 540 480 Balance 240 540 480 Intake: Oral 240 540 480 Other: Voiding Method Bedside Commode Bedside Commode Bedside Commode # Voids 1 1 1 # Bowel Movements 1 1 1 - Exam GENERAL DESCRIPTION: An elderly male up in a chair in no distress RESPIRATORY SYSTEM: Unlabored breathing , decreased breath sounds at bases HEART: S1 S2 regular rate and rhythm , ABDOMEN: Soft , no tenderness EXTREMITIES: No edema feet - Labs CBC & Chem 7: 06/27/24 03:49 06/27/24 03:49 Labs: Abnormal Lab Results - Last 24 Hours (Table) 06/26/24 06/26/24 06/27/24 Range/Units 17:35 20:18 03:49 WBC 13.71 H (4.50-10.00) X 10*3/uL RBC 2.92 L (4.10-5.20) X 10*6/uL Hgb 7.5 L (12.0-15.0) g/dL Hct 24.2 L (37.2-46.3) % MCH 25.7 L (27.0-32.0) pg MCHC 31.0 L (32.0-37.0) g/dL RDW 15.7 H (11.5-14.5) % Plt Count 624 H (140-440) X 10*3/uL Immature Gran # 0.35 H (0.00-0.04) X 10*3/uL Monocytes # 1.15 H (0.20-1.00) X 10*3/uL Eosinophils # 0.61 H (0.04-0.35) X 10*3/uL Basophils # 0.13 H (0.00-0.10) X 10*3/uL Sodium (135-145) mmol/L Chloride (96-109) mmol/L BUN (9.0-27.0) mg/dL Est GFR (CKD-EPI) (>=60) BUN/Creatinine Ratio (12.00-20.00) Ratio Glucose (70-110) mg/dL POC Glucose (mg/dL) 208 H 255 H (70-110) mg/dL Total Bilirubin (0.3-1.2) mg/dL Alkaline Phosphatase (41-126) U/L Albumin (3.8-4.9) g/dL Albumin/Globulin Ratio (1.60-3.17) Ratio 06/27/24 06/27/24 06/27/24 Range/Units 03:49 07:22 12:16 WBC (4.50-10.00) X 10*3/uL RBC (4.10-5.20) X 10*6/uL Hgb (12.0-15.0) g/dL Hct (37.2-46.3) % MCH (27.0-32.0) pg MCHC (32.0-37.0) g/dL RDW (11.5-14.5) % Plt Count (140-440) X 10*3/uL Immature Gran # (0.00-0.04) X 10*3/uL Monocytes # (0.20-1.00) X 10*3/uL Eosinophils # (0.04-0.35) X 10*3/uL Basophils # (0.00-0.10) X 10*3/uL Sodium 131 L (135-145) mmol/L Chloride 93 L (96-109) mmol/L BUN 88.9 H (9.0-27.0) mg/dL Est GFR (CKD-EPI) 46 L (>=60) BUN/Creatinine Ratio 74.08 H (12.00-20.00) Ratio Glucose 152 H (70-110) mg/dL POC Glucose (mg/dL) 174 H 311 H (70-110) mg/dL Total Bilirubin <0.2 L (0.3-1.2) mg/dL Alkaline Phosphatase 214 H (41-126) U/L Albumin 3.2 L (3.8-4.9) g/dL Albumin/Globulin Ratio 1.07 L (1.60-3.17) Ratio Microbiology - Last 24 Hours (Table) 06/21/24 07:11 Blood Culture - Final Blood Assessment and Plan (1) Allergy to multiple antibiotics Current Visit: Yes Status: Acute Code(s): Z88.1 - ALLERGY STATUS TO OTHER ANTIBIOTIC AGENTS SNOMED Code(s): 125002346 (2) UTI (urinary tract infection) Current Visit: Yes Status: Acute Code(s): N39.0 - URINARY TRACT INFECTION, SITE NOT SPECIFIED SNOMED Code(s): 29565504 (3) Pneumonia Current Visit: Yes Status: Acute Code(s): J18.9 - PNEUMONIA, UNSPECIFIED ORGANISM SNOMED Code(s): 735348298 Plan: 1patient presented hospital with generalized weakness no energy she also have urinary burning and frequency significantly positive UA likely concerning for sy mptomatic UTI from enteric gram-negative pathogen failing outpatient oral Bactrim DS therapy patient CT abdomen pelvis concerning for some multifocal infiltrate the lung bases but no significant cough clinical suspicious low for pneumonia especially of aspiration etiology but not entirely excluded 2-patient with multiple antibiotic ALLERGIES that would limit the number of antibiotic safe to use 3-blood and sputum cultures has been negative so far 4patient is afebrile and has received adequate antibiotic for pneumonia/UTI white count still up possible component of candidiasis so we will give her a dose of Diflucan and see response Dictation was produced using [employer] software. please excuse any grammatical, word or spelling errors.
[2024-06-27 17:13] LABS: Glucose,Whole Blood 250 mg/dL (70-110)
[2024-06-27] MEDS: FLUCONAZOLE 100 MG TAB PO ONE (17:32)
[2024-06-27 20:04] LABS: Glucose,Whole Blood 286 mg/dL (70-110)
[2024-06-27] MEDS: INSULIN GLARGINE (LANTUS) 100 UNIT/ML SYR SQ SCH (20:34)
[2024-06-27 22:37] LABS: Magnesium 1.7 mg/dL (1.5-2.4)
[2024-06-28 07:28] LABS: Glucose,Whole Blood 188 mg/dL (70-110)
[2024-06-28 08:02] VITALS: BP 149/67; PULSE 63; TEMP 97.4
[2024-06-28] MEDS: FLUCONAZOLE 100 MG TAB PO SCH (08:48)
[2024-06-28 09:18] LABS: HCT 24.3 % (37.2-46.3); HGB 7.5 g/dL (12.0-15.0); MCH 25.8 pg (27.0-32.0); MCHC 30.9 g/dL (32.0-37.0); MCV 83.5 FL (80.0-97.0); Mean Platelet Volume 9.7 FL (9.5-12.2); NRBC Per 100 WBC 0 X 10*3/uL (0.00-0.01); Platelet Count 624 X 10*3/uL (140-440); RBC 2.91 X 10*6/uL (4.10-5.20); RDW 15.6 % (11.5-14.5); WBC 13.64 X 10*3/uL (4.50-10.00)
[2024-06-28 09:28] LABS: BUN/Creat Ratio 68.08 Ratio (12.00-20.00); Blood Urea Nitrogen 88.5 mg/dL (9.0-27.0); Calcium 9.6 mg/dL (8.7-10.3); Carbon Dioxide 25.8 mmol/L (21.6-31.8); Chloride 93 mmol/L (96-109); Glucose 184 mg/dL (70-110); Potassium 4.3 mmol/L (3.5-5.5); Sodium 132 mmol/L (135-145)
[2024-06-28 10:29] LABS: Basophils # (M) 0.14 X 10*3/uL (0.00-0.10); Eosinophils # (M) 0.82 X 10*3/uL (0.04-0.35); Lymphocytes # (M) 4.23 X 10*3/uL (0.90-5.00); Monocytes # (M) 0.55 X 10*3/uL (0.20-1.00); Neutrophils # (M) 7.91 X 10*3/uL (1.80-7.70); Neutrophils % (M) 58 %; Stomatocytes 2+ (None Seen)
[2024-06-28 13:08] LABS: Glucose,Whole Blood 197 mg/dL (70-110)
--- NOTE | 2024-06-28 13:15 | P.DS ---
Providers Date of admission: 06/20/24 22:08 Expected date of discharge: 06/28/24 Attending physician: Latanya Sanchez Consults: 06/20/24 21:56 Consult Physician Urgent Consulting Provider: Elaina Castro Consult Reason/Comments: pneumonia/uti Do you want consulting provider notified?: Yes Consult Physician Urgent Consulting Provider: Francisca Escobar Consult Reason/Comments: hyponatremia Do you want consulting provider notified?: Yes 06/20/24 22:08 Consult Physician Stat Consulting Provider: Peter Arellano Consult Reason/Comments: ICU management/hyponatremia Do you want consulting provider notified?: Yes Primary care physician: Latanya Sanchez Hospital Course: HISTORY OF PRESENT ILLNESS: This is a 78 year old female with a previous medical history significant for hypertension and hypertensive cardiovascular disease, hyperlipidemia, diabetes mellitus type 2, and diabetic polyneuropathy, GERD with duodenal ulcer, and obesity with obstructive sleep apnea, and obesity hypoventilation syndrome, chronic diastolic heart filure, patient was last hospitalized at [facility] about a year ago with accelerated hypertension and hypervolemic hyponatremia and was sen by cardiology and nephrology, patient was recently to be treated as an outpatient for urinary tract infection, but she has numerous allergies/limited antibiotic use, she stated that she only can use Bactrim and she was given a smaller dose due to her creatinine clearance, patient stated that she is not feeling better with that, so she ended up coming to the emergency department [facility] emergency department yesterday she was found to have severe hyponatremia with a sodium of 113 and severe hypochloremia as well, she was started on IV fluid resuscitation in the form of normal saline at 50 cc an hour, her sodium is up to 115 she continues to be severely hyponatremic, she will be admitted to the ICU, patient may need to be started on 3% hypertonic to try to improve her sodium up to like 120 nephrology consultation was obtained, I obtain serum osmolality, urine osmolality, urine sodium, cortisol level, TSH and free T4, patient also was found to have urinary tract infection, urine culture was sent blood culture was sent I started the patient on Azactam 1 g IV piggyback every 8 hours, continue Bactrim IV piggyback for now until further recommendation by ID. 06/22: Patient sitting up in chair no apparent distress, she is on room air, her oxygenation is 95%, she is complaining of increased coughing, minimal from production, chest x-ray showed evidence of possible acute infiltrate, versus atelectasis, she was started on Azactam 2 g piggyback every 8 hours, she was taken off Bactrim, she was seen in consultation by nephrology as well as by pulmonary medicine, she was started on 3%, her sodium is up to 119, I started the patient on Lasix 40 mg IV push every 12 hours, input and output and daily weight, continue fluid restriction to 1500 cc over 24 hours, follow-up with the patient very closely. 06/23: Patient sitting up in bed in no apparent distress, she continues to be on room air, oxygenation is 97%, chest x-ray showed evidence of right middle lobe and lower lobe pneumonia, this is likely aspiration pneumonia at this time, patient is having some issues with swallowing, speech therapy evaluation, continue Azactam as the patient is allergic to numerous antibiotic, pulmonary as well as ID is following, repeat sodium level today, she did receive 1 dose of Samsca yesterday, she did receive 1 dose of Lasix yesterday as well, follow-up with the patient very closely, 06/24: Patient is sitting up in recliner chair in no apparent distress, she ambulated using her walker, she continues to be on Azactam 2 g piggyback every 8 hours, she has been responding very well to the treatment plan, her sodium is up to 124, continue fluid restriction, she did receive Samsca as well as Lasix, repeat sodium tomorrow morning, continue follow-up with the patient very closely, the plan is for the patient to go home with home health care. 06/25: Patient sitting up in bed in no apparent distress, she is feeling a lot better today, her sodium is up to 130, she denies any chest pain, she continues to have some cough with feeding, she possibly aspirating on and off, will continue with Azactam 2 g piggyback every 8 hours, follow-up with the patient very closely. Patient can be discharged home hopefully in the next 24 hours 06/26: Patient sitting up in the recliner chair no apparent distress, she denies any chest pain, shortness of breath, her sodium is up to 131, she has been treated for SIADH with decreased oral solute as well, her sodium is a lot better, she has been on Lasix 60 mg orally twice every day, she has been on urea 15 g orally twice every day, continue current treatment plan, increase activity, hopefully patient can be discharged home in the next 1 to 2 days. 06/27: Patient sitting up in bed in no apparent distress, she denies any chest pain, shortness of breath, she is feeling a bit better today than yesterday, her sodium today is 131 same as yesterday, continue to work with physical therapy, recommended for the patient to go to subacute rehabilitation, however the patient wanted to go home with home health care, she will be discharged home tomorrow morning, her BUN is climbing to 88 today, discussed with nephrology possibly discontinue urea for today, increase oral intake, repeat BMP tomorrow 06/28: Patient sitting up in recliner chair, she was seen and evaluated physical therapy, she elected to go home with home PT, patient can be discharged home today follow-up as an outpatient in 1 week, she is to follow-up with nephrology in 1 week, continue IV and biotic continue fluid restriction 1500 cc, discontinue urea, decrease Lasix to 40 mg orally twice every day. Discharge diagnoses: 1. 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 2. Recurrent UTI . 3. Right middle lobe and lower lobe pneumonia likely aspiration pneumonia 4. Hypertension and hypertensive cardiovascular disease 5. Mixed hyperlipidemia. 6. Diabetes Mellitus type 2. 7. Obesity and obstructive sleep apnea and OHS. not able to tolerate CPAP. 8. Vitamin D deficiency. 9. Asthma. 10. GERD with PUD. 11. Anxiety. 12. Paroxysmal atrial fibrillation currently in sinus rhythm. 13. Anemia multifactorial. 14 . chronic dysphagia likely due to Zenker diverticulum 15. Medical debility Patient Condition at Discharge: Stable Plan - Discharge Summary New Discharge Prescriptions: No Action Pioglitazone [Actos] 15 mg PO DAILY@0900 metFORMIN HCL [Glucophage] 1,000 mg PO BID@1400,2100 atenoloL [Tenormin] 50 mg PO BID@0900,2100 Insulin Glargine,Hum.rec.anlog [Lantus Solostar Pen] 7 - 18 units SQ HS Magnesium Oxide [Mag-Ox] 400 mg PO DAILY@1400 Losartan Potassium 100 mg PO DAILY@0900 amLODIPine [Norvasc] 5 mg PO DAILY@0900 cloNIDine HCL [Catapres] 0.2 mg PO HS@2099 ALPRAZolam [Xanax] 0.125 mg PO BID@899,2099 Acetaminophen Tab [Tylenol] 500 mg PO TID@899,1399,2099 Levothyroxine Sodium [Synthroid] 25 mcg PO DAILY@30 #30 tab Acetaminophen Tab [Tylenol] 650 mg PO Q4HR PRN #0 tab PRN Reason: Fever And/ Or Pain Furosemide [Lasix] 40 mg PO BID@09,1599 Furosemide [Lasix] 20 mg PO BID@09,1599 Sulfamethox-Tmp 200-40Mg/5Ml [Bactrim Suspension] 5 ml PO BID@0700,1900 Discharge Medication List Pioglitazone [Actos] 15 mg PO DAILY@89903/11/16 [History] atenoloL [Tenormin] 50 mg PO BID@899,209903/11/16 [History] metFORMIN HCL [Glucophage] 1,000 mg PO BID@1399,209903/11/16 [History] Insulin Glargine,Hum.rec.anlog [Lantus Solostar Pen] 7 - 18 units SQ HS 10/24/16 [History] ALPRAZolam [Xanax] 0.125 mg PO BID@899,209908/05/22 [History] Acetaminophen Tab [Tylenol] 500 mg PO TID@00,1399,209912/11/23 [History] Losartan Potassium 100 mg PO DAILY@89912/11/23 [History] Magnesium Oxide [Mag-Ox] 400 mg PO DAILY@139912/11/23 [History] amLODIPine [Norvasc] 5 mg PO DAILY@89912/11/23 [History] cloNIDine HCL [Catapres] 0.2 mg PO HS@209912/11/23 [History] Acetaminophen Tab [Tylenol] 650 mg PO Q4HR PRN #0 tab 12/16/23 [Rx] Levothyroxine Sodium [Synthroid] 25 mcg PO DAILY@30 #30 tab 12/16/23 [Rx] Furosemide [Lasix] 20 mg PO BID@0900,1600 06/20/24 [History] Furosemide [Lasix] 40 mg PO BID@0900,159906/20/24 [History] Sulfamethox-Tmp 200-40Mg/5Ml [Bactrim Suspension] 5 ml PO BID@0700,1900 06/20/24 [History] Follow up Appointment(s)/Referral(s): Latanya Sanchez MD [Primary Care Provider] - 1-2 days [facility], [NON-STAFF] - 1 Week
[2024-06-28 15:57] LABS: Albumin 2.67 g/dL (3.80-4.90); Gamma Globulin 1.08 g/dL (0.70-1.50)
--- NOTE | 2024-06-28 16:07 | P.PN ---
Subjective Patient is seen for follow-up for hyponatremia. Serum sodium at 132 today. Complaining of feeling tired today. Tolerating oral intake. Objective - Vital Signs Vital signs: Vital Signs Temp 97.4 F L 06/28/24 07:23 Pulse 63 06/28/24 07:23 Resp 16 06/28/24 07:23 BP 149/67 06/28/24 07:23 Pulse Ox 97 06/28/24 07:23 FiO2 Intake & Output 06/27/24 06/28/24 06/28/24 18:59 06:59 18:59 Intake Total 720 590 120 Balance 720 590 120 Intake: Oral 720 590 120 Other: Voiding Method Bedside Commode Bedside Commode Bedside Commode # Voids 1 4 1 # Bowel Movements 1 3 - Exam Patient is awake, comfortable, no acute distress. Examination of the heart S1 Examination of the lungs bilateral breath sounds are heard Abdomen is soft nontender Examination of lower extremities shows chronic skin changes and 1+ edema [employer] exam grossly intact - Labs CBC & Chem 7: 06/28/24 05:33 06/28/24 05:33 Labs: Abnormal Lab Results - Last 24 Hours (Table) 06/23/24 06/27/24 06/27/24 Range/Units 06:24 17:11 20:03 WBC (4.50-10.00) X 10*3/uL RBC (4.10-5.20) X 10*6/uL Hgb (12.0-15.0) g/dL Hct (37.2-46.3) % MCH (27.0-32.0) pg MCHC (32.0-37.0) g/dL RDW (11.5-14.5) % Plt Count (140-440) X 10*3/uL Neutrophils # (Manual) (1.80-7.70) X 10*3/uL Eosinophils # (Manual) (0.04-0.35) X 10*3/uL Basophils # (Manual) (0.00-0.10) X 10*3/uL Stomatocytes (None Seen) Sodium (135-145) mmol/L Chloride (96-109) mmol/L Anion Gap (4.00-12.00) mmol/L BUN (9.0-27.0) mg/dL Est GFR (CKD-EPI) (>=60) BUN/Creatinine Ratio (12.00-20.00) Ratio Glucose (70-110) mg/dL POC Glucose (mg/dL) 250 H 286 H (70-110) mg/dL Albumin (PEP) 2.67 L (3.80-4.90) g/dL Wdrka-1-Necfvyjzm 0.43 H (0.10-0.40) g/dL Hxncc-3-Cxybwioqj 1.04 H (0.60-1.00) g/dL 06/28/24 06/28/24 06/28/24 Range/Units 05:33 05:33 07:27 WBC 13.64 H (4.50-10.00) X 10*3/uL RBC 2.91 L (4.10-5.20) X 10*6/uL Hgb 7.5 L (12.0-15.0) g/dL Hct 24.3 L (37.2-46.3) % MCH 25.8 L (27.0-32.0) pg MCHC 30.9 L (32.0-37.0) g/dL RDW 15.6 H (11.5-14.5) % Plt Count 624 H (140-440) X 10*3/uL Neutrophils # (Manual) 7.91 H (1.80-7.70) X 10*3/uL Eosinophils # (Manual) 0.82 H (0.04-0.35) X 10*3/uL Basophils # (Manual) 0.14 H (0.00-0.10) X 10*3/uL Stomatocytes 2+ A (None Seen) Sodium 132 L (135-145) mmol/L Chloride 93 L (96-109) mmol/L Anion Gap 13.20 H (4.00-12.00) mmol/L BUN 88.5 H (9.0-27.0) mg/dL Est GFR (CKD-EPI) 42 L (>=60) BUN/Creatinine Ratio 68.08 H (12.00-20.00) Ratio Glucose 184 H (70-110) mg/dL POC Glucose (mg/dL) 188 H (70-110) mg/dL Albumin (PEP) (3.80-4.90) g/dL Wyged-3-Yalnnygyt (0.10-0.40) g/dL Dokjd-5-Xfvvgaqru (0.60-1.00) g/dL 06/28/24 Range/Units 12:56 WBC (4.50-10.00) X 10*3/uL RBC (4.10-5.20) X 10*6/uL Hgb (12.0-15.0) g/dL Hct (37.2-46.3) % MCH (27.0-32.0) pg MCHC (32.0-37.0) g/dL RDW (11.5-14.5) % Plt Count (140-440) X 10*3/uL Neutrophils # (Manual) (1.80-7.70) X 10*3/uL Eosinophils # (Manual) (0.04-0.35) X 10*3/uL Basophils # (Manual) (0.00-0.10) X 10*3/uL Stomatocytes (None Seen) Sodium (135-145) mmol/L Chloride (96-109) mmol/L Anion Gap (4.00-12.00) mmol/L BUN (9.0-27.0) mg/dL Est GFR (CKD-EPI) (>=60) BUN/Creatinine Ratio (12.00-20.00) Ratio Glucose (70-110) mg/dL POC Glucose (mg/dL) 197 H (70-110) mg/dL Albumin (PEP) (3.80-4.90) g/dL Sckhn-3-Cnuwrqkhh (0.10-0.40) g/dL Fmlej-7-Cgnipsrio (0.60-1.00) g/dL Assessment and Plan Assessment: 1. 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 Sodium level gradually improving and is stable at 132 this morning. TSH normal. Urine sodium 65 and urine osmolality 586. Cortisol level 24.7. 2. UTI on antibiotics. 3. Benign hypertension. Stable. 4. Diabetes mellitus. 5. Hypomagnesemia from poor intake. Replaced. Improved. 6. Acute kidney injury secondary to vasomotor nephropathy secondary to diuresis. Renal function improved. Creatinine stable at 1.2. Plan: Continue with current dose of Lasix Encourage increased oral intake Monitor blood pressure as patient is currently off of amlodipine Repeat labs in a.m.
--- NOTE | 2024-06-28 17:52 | P.PN ---
Subjective Progress Note Date: 06/28/24 Principal diagnosis: Reason for follow-up is UTI and a question of pneumonia Patient is a 78-year-old female with a past medical history significant for diabetes mellitus reflux hypertension hyperlipidemia asthma anxiety presenting to the hospital for evaluation of weakness has been diagnosed with a UTI failing outpatient therapy and the question of possible pneumonia. On today's evaluation that is 06/28/2024, patient has been afebrile, patient is breathing comfortably and is currently on room air, patient denies having any significant cough no chest pain, patient denies nausea vomiting or diarrhea and no abdominal pain, mention feeling better. Patient white count is 13.64 creatinine is 1.3 Objective - Vital Signs Vital signs: Vital Signs Temp 97.4 F L 06/28/24 07:23 Pulse 63 06/28/24 07:23 Resp 16 06/28/24 07:23 BP 149/67 06/28/24 07:23 Pulse Ox 97 06/28/24 07:23 FiO2 Intake & Output 06/27/24 06/28/24 06/28/24 18:59 06:59 18:59 Intake Total 720 590 120 Balance 720 590 120 Intake: Oral 720 590 120 Other: Voiding Method Bedside Commode Bedside Commode # Voids 1 4 1 # Bowel Movements 1 3 - Exam GENERAL DESCRIPTION: An elderly male up in a chair in no distress RESPIRATORY SYSTEM: Unlabored breathing , decreased breath sounds at bases HEART: S1 S2 regular rate and rhythm , ABDOMEN: Soft , no tenderness EXTREMITIES: No edema feet - Labs CBC & Chem 7: 06/28/24 05:33 06/28/24 05:33 Labs: Abnormal Lab Results - Last 24 Hours (Table) 06/27/24 06/27/24 06/27/24 Range/Units 12:16 17:11 20:03 WBC (4.50-10.00) X 10*3/uL RBC (4.10-5.20) X 10*6/uL Hgb (12.0-15.0) g/dL Hct (37.2-46.3) % MCH (27.0-32.0) pg MCHC (32.0-37.0) g/dL RDW (11.5-14.5) % Plt Count (140-440) X 10*3/uL Neutrophils # (Manual) (1.80-7.70) X 10*3/uL Eosinophils # (Manual) (0.04-0.35) X 10*3/uL Basophils # (Manual) (0.00-0.10) X 10*3/uL Stomatocytes (None Seen) Sodium (135-145) mmol/L Chloride (96-109) mmol/L Anion Gap (4.00-12.00) mmol/L BUN (9.0-27.0) mg/dL Est GFR (CKD-EPI) (>=60) BUN/Creatinine Ratio (12.00-20.00) Ratio Glucose (70-110) mg/dL POC Glucose (mg/dL) 311 H 250 H 286 H (70-110) mg/dL 06/28/24 06/28/24 06/28/24 Range/Units 05:33 05:33 07:27 WBC 13.64 H (4.50-10.00) X 10*3/uL RBC 2.91 L (4.10-5.20) X 10*6/uL Hgb 7.5 L (12.0-15.0) g/dL Hct 24.3 L (37.2-46.3) % MCH 25.8 L (27.0-32.0) pg MCHC 30.9 L (32.0-37.0) g/dL RDW 15.6 H (11.5-14.5) % Plt Count 624 H (140-440) X 10*3/uL Neutrophils # (Manual) 7.91 H (1.80-7.70) X 10*3/uL Eosinophils # (Manual) 0.82 H (0.04-0.35) X 10*3/uL Basophils # (Manual) 0.14 H (0.00-0.10) X 10*3/uL Stomatocytes 2+ A (None Seen) Sodium 132 L (135-145) mmol/L Chloride 93 L (96-109) mmol/L Anion Gap 13.20 H (4.00-12.00) mmol/L BUN 88.5 H (9.0-27.0) mg/dL Est GFR (CKD-EPI) 42 L (>=60) BUN/Creatinine Ratio 68.08 H (12.00-20.00) Ratio Glucose 184 H (70-110) mg/dL POC Glucose (mg/dL) 188 H (70-110) mg/dL Assessment and Plan (1) Allergy to multiple antibiotics Status: Acute Code(s): Z88.1 - ALLERGY STATUS TO OTHER ANTIBIOTIC AGENTS SNOMED Code(s): 279983482 (2) UTI (urinary tract infection) Status: Acute Code(s): N39.0 - URINARY TRACT INFECTION, SITE NOT SPECIFIED SNOMED Code(s): 68173455 (3) Pneumonia Status: Acute Code(s): J18.9 - PNEUMONIA, UNSPECIFIED ORGANISM SNOMED Code(s): 041683330 Plan: 1patient presented hospital with generalized weakness no energy she also have urinary burning and frequency significantly positive UA likely concerning for symptomatic UTI from enteric gram-negative pathogen failing outpatient oral Bactrim DS therapy patient CT abdomen pelvis concerning for some multifocal infiltrate the lung bases but no significant cough clinical suspicious low for pneumonia especially of aspiration etiology but not entirely excluded 2-patient with multiple antibiotic ALLERGIES that would limit the number of antibiotic safe to use 3-blood and sputum cultures has been negative so far 4patient is afebrile and has received adequate antibiotic for pneumonia/UTI, no need for antibiotic on discharge discussed with admitting physician Dictation was produced using [employer] dictation software. please excuse any grammatical, word or spelling errors. Time with Patient: Less than 30
== END 2024-06-28 14:18 | disposition home health service (06) | DRG 643 ==
LOC: EC 18:46 → 2SICU 22:08 → 5NMEDONC 06-22 10:35 → 2SICU 06-22 10:41 → 5NMEDONC 06-22 10:46
PROVIDERS: ADMIT Internal Medicine; ATTEND Internal Medicine
DX: E22.2 Syndrome of inappropriate secretion of antidiuretic hormone (principal); J69.0 Pneumonitis due to inhalation of food and vomit; N17.0 Acute kidney failure with tubular necrosis; E66.2 Morbid (severe) obesity with alveolar hypoventilation; R13.10 Dysphagia, unspecified; D64.9 Anemia, unspecified; E11.42 Type 2 diabetes mellitus with diabetic polyneuropathy; E86.1 Hypovolemia; I48.0 Paroxysmal atrial fibrillation; I11.0 Hypertensive heart disease with heart failure; J45.909 Unspecified asthma, uncomplicated; K27.9 Peptic ulcer, site unspecified, unspecified as acute or chronic, without hemorrhage or perforation; Z68.41 Body mass index [BMI] 40.0-44.9, adult; I50.32 Chronic diastolic (congestive) heart failure; N39.0 Urinary tract infection, site not specified; E11.65 Type 2 diabetes mellitus with hyperglycemia; Z79.4 Long term (current) use of insulin; Z11.52 Encounter for screening for COVID-19; Z79.01 Long term (current) use of anticoagulants; T50.2X5A Adverse effect of carbonic-anhydrase inhibitors, benzothiadiazides and other diuretics, initial encounter; E78.2 Mixed hyperlipidemia; E83.42 Hypomagnesemia; E87.8 Other disorders of electrolyte and fluid balance, not elsewhere classified; K21.9 Gastro-esophageal reflux disease without esophagitis; X58.XXXA Exposure to other specified factors, initial encounter; Z88.5 Allergy status to narcotic agent; F41.9 Anxiety disorder, unspecified; Z79.84 Long term (current) use of oral hypoglycemic drugs; Z79.890 Hormone replacement therapy; Z79.899 Other long term (current) drug therapy; Z86.73 Personal history of transient ischemic attack (TIA), and cerebral infarction without residual deficits; Z87.11 Personal history of peptic ulcer disease; Z87.440 Personal history of urinary (tract) infections; Z88.1 Allergy status to other antibiotic agents; Z90.710 Acquired absence of both cervix and uterus; Z88.8 Allergy status to other drugs, medicaments and biological substances; Z98.51 Tubal ligation status; Z91.040 Latex allergy status
CPT/HCPCS: 36415; 51702; 51798; 71045; 71046; 74176; 80048; 80053; 81001; 82533; 82607; 82728; 82746; 83540; 83550; 83605; 83735; 83880; 83883; 83930; 83935; 84145; 84165; 84295; 84300; 84443; 85025; 85045; 86334; 86335; 87040; 87070; 87086; 87205; 87636; 93005; 96361; 96365; 96366; 96367; 96368; 96375; 96376; 99291

== ENCOUNTER 2024-10-19 14:37 | Inpatient (IN) | payer MEDICARE ==
--- NOTE | 2024-10-19 15:54 | XR ---
EXAMINATION TYPE: XR chest 2V DATE OF EXAM: 10/19/2024 3:51 PM COMPARISON: Chest radiographs from 08/26/2024. CLINICAL INDICATION: Female, 79 years old with history of pain; [facility] TECHNIQUE: XR chest 2V Frontal and lateral views of the chest. FINDINGS: Lungs/Pleura: There is no evidence of pleural effusion, focal consolidation, or pneumothorax. Pulmonary vascularity: Pulmonary vascular congestion. Heart/mediastinum: Cardiomediastinal silhouette is enlarged. Musculoskeletal: No acute osseous pathology. IMPRESSION: Cardiomegaly and mild pulmonary vascular congestion. Correlate with BNP for congestive heart failure. [facility], , 10/19/2024 3:52 PM
[2024-10-19 16:00] LABS: Basophils # (A) 0.06 10*3/uL (0.00-0.10); Basophils % (A) 0.5 %; Eosinophils # (A) 0.17 10*3/uL (0.04-0.35); Eosinophils % (A) 1.5 %; HCT 28.1 % (37.2-46.3); HGB 8.8 g/dL (12.0-15.0); Lymphocytes # (A) 1.58 10*3/uL (0.90-5.00); Lymphocytes % (A) 14.2 %; MCH 24.5 pg (27.0-32.0); MCHC 31.3 g/dL (32.0-37.0); MCV 78.3 fL (80.0-97.0); Monocytes # (A) 0.95 10*3/uL (0.20-1.00); Monocytes % (A) 8.5 %; Neutrophils # (A) 8.26 10*3/uL (1.80-7.70); Neutrophils % (A) 74.3 %; Platelet Count 573 10*3/uL (140-440); RBC 3.59 10*6/uL (4.10-5.20); RDW 18.5 % (11.5-14.5); WBC 11.13 10*3/uL (4.50-10.00)
[2024-10-19 16:14] LABS: INR 0.9 (<1.2); Partial Thromboplastin Time 26.7 sec (22.0-30.0); Prothrombin Time 10.6 sec (10.0-12.5)
[2024-10-19 16:20] LABS: ALT 46 U/L (4-34); African American GFR (CKD) 81 (>60 ml/min/1.73 sqM); Albumin 4.1 g/dL (3.5-5.0); Anion Gap 8 mmol/L; Blood Urea Nitrogen 35 mg/dL (7-17); Calcium 9.9 mg/dL (8.4-10.2); Carbon Dioxide 30 mmol/L (22-30); Chloride 85 mmol/L (98-107); Glucose 199 mg/dL (74-99); Non-African American GFR(CKD) 70 (>60 ml/min/1.73 sqM); Sodium 123 mmol/L (137-145); Total Protein 7.8 g/dL (6.3-8.2)
[2024-10-19 16:23] LABS: AST 66 U/L (14-36); Alkaline Phosphatase 346 U/L (38-126); Magnesium 1.4 mg/dL (1.6-2.3); Potassium 5.7 mmol/L (3.5-5.1)
--- NOTE | 2024-10-19 16:50 | ED ---
GI Bleed HPI - General Chief complaint: GI Bleed Stated complaint: Weakness Time Seen by Provider: 10/19/24 16:32 Source: patient, RN notes reviewed, old records reviewed Mode of arrival: EMS Limitations: no limitations - History of Present Illness Initial comments: This is an 79-year-old female to the ER for evaluation, today she presents for evaluation of her complaints of weakness decreased activity level with home nurse helping, inability to ambulate ambulate or walk, fatigue feels like her sodium was low, multiple complaints, patient was seen by primary care as well as home nursing who thought she is having GI bleed. Patient states her GI bleed is her normal hemorrhoidal bleeding MD complaint: blood on toilet paper Radiation: none Quality: painless Consistency: intermittent Improves with: none Worsens with: none Context: history of GI bleed, hemorrhoids Associated Symptoms: loss of appetite, weakness Treatments Prior to Arrival: none - Related Data Home Medications Medication Instructions Recorded Confirmed Pioglitazone [Actos] 15 mg PO DAILY@0903/11/16 10/19/24 atenoloL [Tenormin] 50 mg PO BID@0900,209903/11/16 10/19/24 metFORMIN HCL [Glucophage] 1,000 mg PO BID@1400,209903/11/16 10/19/24 ALPRAZolam [Xanax] 0.125 mg PO BID@0900,209908/05/22 10/19/24 Acetaminophen Tab [Tylenol] 500 mg PO TID@0900,1400,209912/11/23 10/19/24 Losartan Potassium 100 mg PO DAILY@89912/11/23 10/19/24 amLODIPine [Norvasc] 5 mg PO DAILY@89912/11/23 10/19/24 Furosemide [Lasix] 20 mg PO BID@0900,209906/20/24 10/19/24 Furosemide [Lasix] 40 mg PO BID@0900,209906/20/24 10/19/24 Insulin Glargine,Hum.rec.anlog 7 - 17 units SQ 08/27/24 10/19/24 [Lantus Solostar Pen] Loperamide [Imodium] 2 mg PO QID PRN 10/19/24 10/19/24 Magnesium 250 mg PO 10/19/24 10/19/24 Sodium Chloride Tab 1 gm PO BID 10/19/24 10/19/24 cloNIDine HCL [Catapres] 0.2 mg PO HS 10/19/24 10/19/24 Allergies Allergy/AdvReac Type Severity Reaction Status Date / Time cephalexin Allergy Unknown Verified 10/19/24 18:15 ciprofloxacin [From Cipro] Allergy Anaphylaxis Verified 10/19/24 18:15 codeine Allergy Chest Pain Verified 10/19/24 18:15 diclofenac Allergy Anaphylaxis Verified 10/19/24 18:15 difluprednate [From Durezol] Allergy Anaphylaxis Verified 10/19/24 18:15 dog dander Allergy Unknown Verified 10/19/24 18:15 doxycycline [From Vibramycin] Allergy Unknown Verified 10/19/24 18:15 epinephrine Allergy Unknown Verified 10/19/24 18:15 erythromycin base Allergy Unknown Verified 10/19/24 18:15 Fish Containing Products Allergy Anaphylaxis Verified 10/19/24 18:15 iodine Allergy Unknown Verified 10/19/24 18:15 latex Allergy Anaphylaxis Verified 10/19/24 18:15 metronidazole [From Flagyl] Allergy Anaphylaxis Verified 10/19/24 18:15 mold Allergy Unknown Verified 10/19/24 18:15 nepafenac Allergy Anaphylaxis Verified 10/19/24 18:15 ofloxacin [From Floxin] Allergy Anaphylaxis Verified 10/19/24 18:15 Penicillins Allergy Unknown Verified 10/19/24 18:15 Childhood shellfish derived [Shellfish] Allergy Anaphylaxis Verified 10/19/24 18:15 strawberry Allergy Burning & Verified 10/19/24 18:15 swelling Thiazides Allergy Unknown Verified 10/19/24 18:15 clonidine AdvReac Dyspnea Verified 10/19/24 18:15 bandages Allergy Unknown Uncoded 06/20/24 19:44 dust Allergy Unknown Uncoded 06/20/24 19:44 seafood Allergy Anaphylaxis Uncoded 06/20/24 19:44 Review of Systems ROS Statement: Those systems with pertinent positive or pertinent negative responses have been documented in the HPI. ROS Other: All systems not noted in ROS Statement are negative. Past Medical History Past Medical History: Asthma, Diabetes Mellitus, GERD/Reflux, Hyperlipidemia, Hypertension Additional Past Medical History / Comment(s): Zenker's diverticulum, hemrroids History of Any Multi-Drug Resistant Organisms: None Reported Past Surgical History: Cholecystectomy, Hysterectomy, Orthopedic Surgery, Tonsi llectomy, Tubal Ligation Additional Past Surgical History / Comment(s): right knee. right cataract. Past Anesthesia/Blood Transfusion Reactions: No Reported Reaction Past Psychological History: Anxiety Smoking Status: Never smoker Past Alcohol Use History: None Reported Past Drug Use History: None Reported - Past Family History Mother Family Medical History: Cancer Additional Family Medical History / Comment(s): . Father Family Medical History: Cancer Additional Family Medical History / Comment(s): prostate General Exam Limitations: no limitations General appearance: alert, in no apparent distress Head exam: Present: atraumatic, normocephalic, normal inspection Eye exam: Present: normal appearance, PERRL, EOMI. Absent: scleral icterus, conjunctival injection, periorbital swelling ENT exam: Present: normal exam, mucous membranes moist Neck exam: Present: normal inspection. Absent: tenderness, meningismus, lymphadenopathy Respiratory exam: Present: normal lung sounds bilaterally. Absent: respiratory distress, wheezes, rales, rhonchi, stridor Cardiovascular Exam: Present: regular rate, normal rhythm, normal heart sounds. Absent: systolic murmur, diastolic murmur, rubs, gallop, clicks GI/Abdominal exam: Present: soft, normal bowel sounds. Absent: distended, tenderness, guarding, rebound, rigid Extremities exam: Present: normal inspection, full ROM, normal capillary refill. Absent: tenderness, pedal edema, joint swelling, calf tenderness Back exam: Present: normal inspection Neurological exam: Present: alert, oriented X3, CN II-XII intact Psychiatric exam: Present: normal affect, normal mood Skin exam: Present: warm, dry, intact, normal color. Absent: rash Course Vital Signs 10/19/24 10/19/24 10/19/24 15:14 20:05 22:24 Temperature 97.4 F L 97.6 F Pulse Rate 53 L 56 L 57 L Respiratory 20 18 18 Rate Blood Pressure 155/68 139/61 140/67 O2 Sat by Pulse 96 96 96 Oximetry - Reevaluation(s) Reevaluation #1: 10/19/24 21:11 Medical records reviewed Reevaluation #2: 10/19/24 21:11 Patient continued feels like she is going to very concerned for her wellbeing Reevaluation #3: 10/19/24 21:11 Patient informed of results questions answered Reevaluation #4: Was pt. sent in by a medical professional or institution (SUZETTE Fitzgerald, MACHINE CLOTHING REPLACER, urgent care, hospital, or detention...) When possible be specific @ -no Did you speak to anyone other than the patient for history (EMS, parent, family, police, friend...)? What history was obtained from this source @ -no Did you review nursing and triage notes (agree or disagree)? Why? @ -agree Are old charts reviewed (outside hosp., previous admission, EMS record, old EKG, old radiological studies, urgent care reports/EKG's, detention records)? Report findings @ -yes Differential Diagnosis (chest pain, altered mental status, abdominal pain women, abdominal pain men, vaginal bleeding, weakness, fever, dyspnea, syncope, headache, dizziness, GI bleed, back pain, seizure, CVA, palpatations, mental health, musculoskeletal)? @ -prior EKG interpreted by me (3pts min.). @ -yes X-rays interpreted by me (1pt min.). @ -no CT interpreted by me (1pt min.). @ -no U/S interpreted by me (1pt. min.). @ -no What testing was considered but not performed or refused? (CT, X-rays, U/S, labs)? Why? @ -none What meds were considered but not given or refused? Why? @ -none Did you discuss the management of the patient with other professionals (professionals i.e. SUZETTE Fitzgerald, MACHINE CLOTHING REPLACER, lab, RT, psych nurse, social insurance adviser, document management analyst, teacher, infantry officer, dependency case manager)? Give summary @ -no Was smoking cessation discussed for >3mins.? @ -no Was critical care preformed (if so, how long)? @ -no Were there social determinants of health that impacted care today? How? (Homelessness, low income, unemployed, alcoholism, drug addiction, transportation, low edu. Level, literacy, decrease access to med. care, detention, rehab)? @ -none Was there de-escalation of care discussed even if they declined (Discuss DNR or withdrawal of care, Hospice)? DNR status @ -no What co-morbidities impacted this encounter? (DM, HTN, Smoking, COPD, CAD, Cancer, CVA, ARF, Chemo, Hep., AIDS, mental health diagnosis, sleep apnea, morbid obesity)? @ -none Was patient admitted / discharged? Hospital course, mention meds given and route, prescriptions, significant lab abnormalities, going to OR and other pertinent info. @ - 79 female to the ER for evaluation this patient presents today for evaluation regards to weakness concern for possible GI bleed seen by primary care patient refuses rectal exam here in the ER hemoglobin is improving from prior. Patient does have UTI low sodium will admit for treatment of this Admitted Undiagnosed new problem with uncertain prognosis? @ -no Drug Therapy requiring intensive monitoring for toxicity (Heparin, Nitro, Insulin, Cardizem)? @ -no Were any procedures done? @ -no Diagnosis/symptom? @ -UTI Acute, or Chronic, or Acute on Chronic? @ -Acute Uncomplicated (without systemic symptoms) or Complicated (systemic symptoms)? @ -Complicated Side effects of treatment? @ -no Exacerbation, Progression, or Severe Exacerbation? @ -exacerbation Poses a threat to life or bodily function? How? (Chest pain, [place], [place], pneumonia, PE, COPD, DKA, ARF, appy, cholecystitis, CVA, Diverticulitis, Homicidal, Suicidal, threat to staff... and all critical care pts) @ -yes extremes of age Reevaluation #5: Differential Weakness: Hypoglycemia, shock, sepsis, hyponatremia, anemia, infection, [place], ETOH, adverse medicine reaction, overdose, stroke, this is not meant to be an all-inclusive list. Medical Decision Making - Medical Decision Making 79 female to the ER for evaluation this patient presents today for evaluation regards to weakness concern for possible GI bleed seen by primary care patient refuses rectal exam here in the ER hemoglobin is improving from prior. Patient does have UTI low sodium will admit for treatment of this - Lab Data Result diagrams: 10/24/24 06:49 10/24/24 06:49 Lab Results 10/19/24 10/19/24 10/19/24 Range/Units 15:30 15:35 15:37 WBC 11.13 H (4.50-10.00) 10*3/uL RBC 3.59 L (4.10-5.20) 10*6/uL Hgb 8.8 L (12.0-15.0) g/dL Hct 28.1 L (37.2-46.3) % MCV 78.3 L (80.0-97.0) fL MCH 24.5 L (27.0-32.0) pg MCHC 31.3 L (32.0-37.0) g/dL Plt Count 573 H (140-440) 10*3/uL MPV 10.2 (9.5-12.2) fL Immature Gran % (Auto) 1.0 % Neutrophils % 74.3 % Lymphocytes % 14.2 % Monocytes % 8.5 % Eosinophils % 1.5 % Basophils % 0.5 % Immature Gran # 0.11 H (0.00-0.04) 10*3/uL Neutrophils # 8.26 H (1.80-7.70) 10*3/uL Lymphocytes # 1.58 (0.90-5.00) 10*3/uL Monocytes # 0.95 (0.20-1.00) 10*3/uL Eosinophils # 0.17 (0.04-0.35) 10*3/uL Basophils # 0.06 (0.00-0.10) 10*3/uL PT (10.0-12.5) sec INR (<1.2) APTT (22.0-30.0) sec Sodium (137-145) mmol/L Potassium (3.5-5.1) mmol/L Chloride (98-107) mmol/L Carbon Dioxide (22-30) mmol/L Anion Gap mmol/L BUN (7-17) mg/dL Creatinine (0.52-1.04) mg/dL Est GFR (CKD-EPI)AfAm (>60 ml/min/1.73 sqM) Est GFR (CKD-EPI)NonAf (>60 ml/min/1.73 sqM) Glucose (74-99) mg/dL Plasma Lactic Acid Jace (0.7-2.0) mmol/L Calcium (8.4-10.2) mg/dL Magnesium (1.6-2.3) mg/dL Total Bilirubin (0.2-1.3) mg/dL AST (14-36) U/L ALT (4-34) U/L Alkaline Phosphatase (38-126) U/L Troponin I (0.000-0.034) ng/mL Total Protein (6.3-8.2) g/dL Albumin (3.5-5.0) g/dL Urine Color Urine Appearance (Clear) Urine pH (5.0-8.0) Ur Specific Thompson (1.001-1.035) Urine Protein (Negative) Urine Glucose (UA) (Negative) Urine Ketones (Negative) Urine Blood (Negative) Urine Nitrite (Negative) Urine Bilirubin (Negative) Urine Urobilinogen (<2.0) mg/dL Ur Leukocyte Esterase (Negative) Urine RBC (0-5) /hpf Urine WBC (0-5) /hpf Urine WBC Clumps (None) /hpf Ur Squamous Epith Cells (0-4) /hpf Urine Bacteria (None) /hpf Urine Mucus (None) /hpf Blood Type A Positive Blood Type Confirm A Positive Blood Type Recheck No Previous Record Bld Type Recheck Status CABO Indicated Antibody Screen NEGATIVE Spec Expiration Date 10/22/2024 - 233610/19/24 10/19/24 10/19/24 Range/Units 15:37 15:37 15:37 WBC (4.50-10.00) 10*3/uL RBC (4.10-5.20) 10*6/uL Hgb (12.0-15.0) g/dL Hct (37.2-46.3) % MCV (80.0-97.0) fL MCH (27.0-32.0) pg MCHC (32.0-37.0) g/dL Plt Count (140-440) 10*3/uL MPV (9.5-12.2) fL Immature Gran % (Auto) % Neutrophils % % Lymphocytes % % Monocytes % % Eosinophils % % Basophils % % Immature Gran # (0.00-0.04) 10*3/uL Neutrophils # (1.80-7.70) 10*3/uL Lymphocytes # (0.90-5.00) 10*3/uL Monocytes # (0.20-1.00) 10*3/uL Eosinophils # (0.04-0.35) 10*3/uL Basophils # (0.00-0.10) 10*3/uL PT 10.6 (10.0-12.5) sec INR 0.9 (<1.2) APTT 26.7 (22.0-30.0) sec Sodium 123 L (137-145) mmol/L Potassium 5.7 H (3.5-5.1) mmol/L Chloride 85 L (98-107) mmol/L Carbon Dioxide 30 (22-30) mmol/L Anion Gap 8 mmol/L BUN 35 H (7-17) mg/dL Creatinine 0.80 (0.52-1.04) mg/dL Est GFR (CKD-EPI)AfAm 81 (>60 ml/min/1.73 sqM) Est GFR (CKD-EPI)NonAf 70 (>60 ml/min/1.73 sqM) Glucose 199 H (74-99) mg/dL Plasma Lactic Acid Jace 1.1 (0.7-2.0) mmol/L Calcium 9.9 (8.4-10.2) mg/dL Magnesium 1.4 L (1.6-2.3) mg/dL Total Bilirubin 0.7 (0.2-1.3) mg/dL AST 66 H (14-36) U/L ALT 46 H (4-34) U/L Alkaline Phosphatase 346 H (38-126) U/L Troponin I (0.000-0.034) ng/mL Total Protein 7.8 (6.3-8.2) g/dL Albumin 4.1 (3.5-5.0) g/dL Urine Color Urine Appearance (Clear) Urine pH (5.0-8.0) Ur Specific Thompson (1.001-1.035) Urine Protein (Negative) Urine Glucose (UA) (Negative) Urine Ketones (Negative) Urine Blood (Negative) Urine Nitrite (Negative) Urine Bilirubin (Negative) Urine Urobilinogen (<2.0) mg/dL Ur Leukocyte Esterase (Negative) Urine RBC (0-5) /hpf Urine WBC (0-5) /hpf Urine WBC Clumps (None) /hpf Ur Squamous Epith Cells (0-4) /hpf Urine Bacteria (None) /hpf Urine Mucus (None) /hpf Blood Type Blood Type Confirm Blood Type Recheck Bld Type Recheck Status Antibody Screen Spec Expiration Date 10/19/24 10/19/24 Range/Units 15:37 17:11 WBC (4.50-10.00) 10*3/uL RBC (4.10-5.20) 10*6/uL Hgb (12.0-15.0) g/dL Hct (37.2-46.3) % MCV (80.0-97.0) fL MCH (27.0-32.0) pg MCHC (32.0-37.0) g/dL Plt Count (140-440) 10*3/uL MPV (9.5-12.2) fL Immature Gran % (Auto) % Neutrophils % % Lymphocytes % % Monocytes % % Eosinophils % % Basophils % % Immature Gran # (0.00-0.04) 10*3/uL Neutrophils # (1.80-7.70) 10*3/uL Lymphocytes # (0.90-5.00) 10*3/uL Monocytes # (0.20-1.00) 10*3/uL Eosinophils # (0.04-0.35) 10*3/uL Basophils # (0.00-0.10) 10*3/uL PT (10.0-12.5) sec INR (<1.2) APTT (22.0-30.0) sec Sodium (137-145) mmol/L Potassium (3.5-5.1) mmol/L Chloride (98-107) mmol/L Carbon Dioxide (22-30) mmol/L Anion Gap mmol/L BUN (7-17) mg/dL Creatinine (0.52-1.04) mg/dL Est GFR (CKD-EPI)AfAm (>60 ml/min/1.73 sqM) Est GFR (CKD-EPI)NonAf (>60 ml/min/1.73 sqM) Glucose (74-99) mg/dL Plasma Lactic Acid Jace (0.7-2.0) mmol/L Calcium (8.4-10.2) mg/dL Magnesium (1.6-2.3) mg/dL Total Bilirubin (0.2-1.3) mg/dL AST (14-36) U/L ALT (4-34) U/L Alkaline Phosphatase (38-126) U/L Troponin I <0.012 (0.000-0.034) ng/mL Total Protein (6.3-8.2) g/dL Albumin (3.5-5.0) g/dL Urine Color Colorless Urine Appearance Cloudy H (Clear) Urine pH 6.0 (5.0-8.0) Ur Specific Thompson 1.007 (1.001-1.035) Urine Protein Negative (Negative) Urine Glucose (UA) Negative (Negative) Urine Ketones Negative (Negative) Urine Blood Negative (Negative) Urine Nitrite Negative (Negative) Urine Bilirubin Negative (Negative) Urine Urobilinogen <2.0 (<2.0) mg/dL Ur Leukocyte Esterase Large H (Negative) Urine RBC 6 H (0-5) /hpf Urine WBC 167 H (0-5) /hpf Urine WBC Clumps Moderate H (None) /hpf Ur Squamous Epith Cells <1 (0-4) /hpf Urine Bacteria Many H (None) /hpf Urine Mucus Rare H (None) /hpf Blood Type Blood Type Confirm Blood Type Recheck Bld Type Recheck Status Antibody Screen Spec Expiration Date - EKG Data -: EKG Interpreted by Me - Radiology Data Radiology results: report reviewed (Chest x-ray is negative for acute disease), image reviewed Disposition Clinical Impression: Hemorrhoids, Weakness, UTI (urinary tract infection), Dehydration, Hyponatremia Disposition: ADMITTED IP TO THIS HOSP Condition: Fair Is patient prescribed a controlled substance at d/c from ED?: No
[2024-10-19] MEDS: ONDANSETRON 4 MG/2 ML VIAL IVP STA (17:14)
[2024-10-19] MEDS: PANTOPRAZOLE 40 MG/10 ML VIAL IVP STA (17:14)
[2024-10-19] MEDS: SODIUM CHLORIDE 0.9% 1,000 ML IV ONE (17:15)
[2024-10-19 18:18] LABS: Bacteria,Urine Many /hpf; Bilirubin,Urine Negative (Negative); Blood,Urine Negative (Negative); Color,Urine Colorless; Glucose,Urine (UA) Negative (Negative); Ketones,Urine Negative (Negative); Leukocyte Esterase,Urine Large (Negative); Mucus,Urine Rare /hpf; Nitrite,Urine Negative (Negative); PH, Urine 6.0 (5.0-8.0); Protein,Urine Negative (Negative); RBC,Urine 6 /hpf (0-5); Specific Gravity,Urine 1.007 (1.001-1.035); Squamous Epithelial Cell,Urine <1 /hpf (0-4); Urobilinogen,Urine <2.0 mg/dL (<2.0); WBC,Urine 167 /hpf (0-5)
[2024-10-19] MEDS ORDERED: NALOXONE 0.4 MG/ML 1 ML VIAL IV PRN (21:07)
[2024-10-19] MEDS ORDERED: ONDANSETRON 4 MG/2 ML VIAL IVP PRN (21:07)
[2024-10-19] MEDS ORDERED: MORPHINE SULFATE 4 MG/ML SYRINGE IV PRN (21:07)
[2024-10-19] MEDS: SODIUM CHLORIDE 0.9% 1,000 ML IV STA (21:56)
[2024-10-19] MEDS: MAGNESIUM OXIDE 400 MG TAB PO STA (22:07)
[2024-10-19] MEDS: MAGNESIUM SULFATE-D5W PMX 1 GM in DEXTROSE/WATER 1 100ML.BAG IVPB ONE (23:08)
[2024-10-19] MEDS: AZTREONAM 2 GM in SODIUM CHLORIDE 0.9% 100 ML IVPB SCH (23:45)
[2024-10-20 00:07] LABS: Glucose,Whole Blood 432 mg/dL (70-110)
[2024-10-20] MEDS: AZTREONAM 2 GM in SODIUM CHLORIDE 0.9% 100 ML IVPB SCH ×3 (00:28→21:29)
[2024-10-20 02:23] LABS: Glucose,Whole Blood 348 mg/dL (70-110)
[2024-10-20 05:37] LABS: Protein/Creatinine Ratio,Urine 1.279
[2024-10-20 05:56] LABS: ALT 34 U/L (4-34); AST 48 U/L (14-36); African American GFR (CKD) >90 (>60 ml/min/1.73 sqM); Albumin 3.4 g/dL (3.5-5.0); Albumin/Globulin Ratio 1.0; Alkaline Phosphatase 298 U/L (38-126); Anion Gap 11 mmol/L; Blood Urea Nitrogen 31 mg/dL (7-17); Calcium 9.6 mg/dL (8.4-10.2); Carbon Dioxide 26 mmol/L (22-30); Chloride 85 mmol/L (98-107); Globulin 3.3 g/dL; Glucose 257 mg/dL (74-99); Magnesium 1.4 mg/dL (1.6-2.3); Non-African American GFR(CKD) 80 (>60 ml/min/1.73 sqM); Potassium 5.6 mmol/L (3.5-5.1); Sodium 122 mmol/L (137-145); Total Protein 6.7 g/dL (6.3-8.2); Uric Acid 6.8 mg/dL (3.7-7.4)
[2024-10-20 07:43] LABS: Glucose,Whole Blood 256 mg/dL (70-110)
[2024-10-20 08:33] LABS: HCT 25.7 % (37.2-46.3); HGB 7.7 g/dL (12.0-15.0); MCH 24.1 pg (27.0-32.0); MCHC 30.0 g/dL (32.0-37.0); MCV 80.6 FL (80.0-97.0); NRBC Per 100 WBC 0 X 10*3/uL (0.00-0.01); Platelet Count 499 X 10*3/uL (140-440); RBC 3.19 X 10*6/uL (4.10-5.20); RDW 18.9 % (11.5-14.5); WBC 15.47 X 10*3/uL (4.50-10.00)
[2024-10-20 08:34] LABS: Basophils # (A) 0.05 X 10*3/uL (0.00-0.10); Basophils % (A) 0.3 %; Eosinophils # (A) 0.13 X 10*3/uL (0.04-0.35); Eosinophils % (A) 0.8 %; Immature Grans, Automated 0.80 %; Lymphocytes # (A) 2.18 X 10*3/uL (0.90-5.00); Lymphocytes % (A) 14.1 %; Monocytes # (A) 1.21 X 10*3/uL (0.20-1.00); Monocytes % (A) 7.8 %; Neutrophils # (A) 11.78 X 10*3/uL (1.80-7.70); Neutrophils % (A) 76.2 %
[2024-10-20] MEDS: amLODIPine 5 MG TAB PO SCH (08:39)
[2024-10-20] MEDS: ACETAMINOPHEN TAB 500 MG TAB PO SCH (08:39)
[2024-10-20] MEDS: LOSARTAN 50 MG TAB PO SCH (08:39)
[2024-10-20] MEDS: ALPRAZolam 0.25 MG TAB PO SCH (08:40)
[2024-10-20] MEDS: PANTOPRAZOLE 40 MG/10 ML VIAL IV SCH (08:40)
[2024-10-20] MEDS: INSULIN LISPRO (HumaLOG) 100 UNIT/ML 10 mL VL SQ SCH (08:40)
[2024-10-20] MEDS: MAGNESIUM SULFATE-D5W PMX 1 GM in DEXTROSE/WATER 1 100ML.BAG IVPB SCH (08:40)
[2024-10-20] MEDS: FUROSEMIDE 10 MG/ML 10 ML VIAL IV SCH (08:40)
[2024-10-20] MEDS: SODIUM CHLORIDE TAB 1 GM TAB PO SCH (10:25)
[2024-10-20] MEDS: PIOGLITAZONE 15 MG TAB PO SCH (10:25)
--- NOTE | 2024-10-20 11:24 | P.NPCON ---
History of Present Illness - Reason for Consult hyponatremia - History of Present Illness Patient is an 79-year-old female with history of chronic hyponatremia who was admitted to the hospital with complaints of increased weakness and cough. Patient states she has not been able to get rid of the bronchitis that she acquired about 6 to 8 weeks ago. She was also noted to have some rectal bleeding which is presumed to be mostly related to her hemorrhoids. Serum sodium was 123 yesterday and is 122 today. Sodium noted to be 120 on 10/07/2024. Maintained on sodium chloride tabs and Lasix at home Leg swelling seems to have worsened. Patient was maintained on IV fluids overnight. Fluids have been discontinued and started on Lasix this morning. No complaints of nausea vomiting or diarrhea. Past Medical History Past Medical History: Asthma, Diabetes Mellitus, GERD/Reflux, Hyperlipidemia, Hypertension Additional Past Medical History / Comment(s): Zenker's diverticulum, hemrroids History of Any Multi-Drug Resistant Organisms: None Reported Past Surgical History: Cholecystectomy, Hysterectomy, Orthopedic Surgery, Tonsillectomy, Tubal Ligation Additional Past Surgical History / Comment(s): right knee. right cataract. Past Anesthesia/Blood Transfusion Reactions: No Reported Reaction Past Psychological History: Anxiety Smoking Status: Never smoker Past Alcohol Use History: None Reported Past Drug Use History: None Reported - Past Family History Mother Family Medical History: Cancer Additional Family Medical History / Comment(s): . Father Family Medical History: Cancer Additional Family Medical History / Comment(s): prostate Medications and Allergies Home Medications Medication Instructions Recorded Confirmed Type Pioglitazone [Actos] 15 mg PO DAILY@0900 03/11/16 10/19/24 History atenoloL [Tenormin] 50 mg PO BID@0900,209903/11/16 10/19/24 History metFORMIN HCL [Glucophage] 1,000 mg PO BID@1400,209903/11/16 10/19/24 History ALPRAZolam [Xanax] 0.125 mg PO BID@0900,209908/05/22 10/19/24 History Acetaminophen Tab [Tylenol] 500 mg PO TID@0900,1400,209912/11/23 10/19/24 History Losartan Potassium 100 mg PO DAILY@89912/11/23 10/19/24 History amLODIPine [Norvasc] 5 mg PO DAILY@0900 12/11/23 10/19/24 History Furosemide [Lasix] 20 mg PO BID@0900,2100 06/20/24 10/19/24 History Furosemide [Lasix] 40 mg PO BID@0900,2100 06/20/24 10/19/24 History Insulin Glargine,Hum.rec.anlog 7 - 17 units SQ HS 08/27/24 10/19/24 History [Lantus Solostar Pen] Loperamide [Imodium] 2 mg PO QID PRN 10/19/24 10/19/24 History Magnesium 250 mg PO HS 10/19/24 10/19/24 History Sodium Chloride Tab 1 gm PO BID 10/19/24 10/19/24 History cloNIDine HCL [Catapres] 0.2 mg PO HS 10/19/24 10/19/24 History Allergies Allergy/AdvReac Type Severity Reaction Status Date / Time cephalexin Allergy Unknown Verified 10/19/24 18:15 ciprofloxacin [From Cipro] Allergy Anaphylaxis Verified 10/19/24 18:15 codeine Allergy Chest Pain Verified 10/19/24 18:15 diclofenac Allergy Anaphylaxis Verified 10/19/24 18:15 difluprednate [From Durezol] Allergy Anaphylaxis Verified 10/19/24 18:15 dog dander Allergy Unknown Verified 10/19/24 18:15 doxycycline [From Vibramycin] Allergy Unknown Verified 10/19/24 18:15 epinephrine Allergy Unknown Verified 10/19/24 18:15 erythromycin base Allergy Unknown Verified 10/19/24 18:15 Fish Containing Products Allergy Anaphylaxis Verified 10/19/24 18:15 iodine Allergy Unknown Verified 10/19/24 18:15 latex Allergy Anaphylaxis Verified 10/19/24 18:15 metronidazole [From Flagyl] Allergy Anaphylaxis Verified 10/19/24 18:15 mold Allergy Unknown Verified 10/19/24 18:15 nepafenac Allergy Anaphylaxis Verified 10/19/24 18:15 ofloxacin [From Floxin] Allergy Anaphylaxis Verified 10/19/24 18:15 Penicillins Allergy Unknown Verified 10/19/24 18:15 Childhood shellfish derived [Shellfish] Allergy Anaphylaxis Verified 10/19/24 18:15 strawberry Allergy Burning & Verified 10/19/24 18:15 swelling Thiazides Allergy Unknown Verified 10/19/24 18:15 clonidine AdvReac Dyspnea Verified 10/19/24 18:15 bandages Allergy Unknown Uncoded 06/20/24 19:44 dust Allergy Unknown Uncoded 06/20/24 19:44 seafood Allergy Anaphylaxis Uncoded 06/20/24 19:44 Physical Exam Vitals: Vital Signs Temp Pulse Pulse Resp BP BP Pulse Ox 10/20/24 07:39 97.8 F 61 16 128/70 95 10/20/24 02:25 97.6 F 57 L 15 137/69 95 10/19/24 23:15 97.5 F L 61 16 147/72 96 10/19/24 22:24 97.6 F 57 L 18 140/67 96 10/19/24 20:05 56 L 18 139/61 96 10/19/24 15:14 97.4 F L 53 L 20 155/68 96 Intake and Output 10/19/24 10/20/24 10/20/24 22:59 06:59 14:59 Intake Total 1060 Balance 1060 Intake: Intake, IV Titration 1000 Amount Aztreonam 2 gm In Sodium 100 Chloride 0.9% 100 ml @ 33 .3 mls/hr IVPB Q12H [facility] Rx#:[id number] Magnesium Sulfate-D5w Pmx 100 1 gm In Dextrose/Water 1 100ml.bag @ 100 mls/hr IVPB ONCE ONE Rx#: [id number] Sodium Chloride 0.9% 1, 800 000 ml @ 130 mls/hr IV . Q7H42M [facility] Rx#:[id number] Oral 60 Other: Weight 108.862 kg Patient is awake, comfortable, no acute distress. Examination of the heart S1 and S2 Examination of the lungs bilateral breath sounds are heard, occasional wheezing Abdomen is soft obese Examination of lower extremities shows edema 3+ bilaterally SOLAR DESIGNER/INSTALLER exam grossly intact Results - Lab Results Most recent lab results Calcium 9.6 mg/dL (8.4-10.2) 10/20/24 04:26 Phosphorus 4.7 mg/dL (2.5-4.5) H 10/20/24 04:26 Magnesium 1.4 mg/dL (1.6-2.3) L 10/20/24 04:26 Urine Creatinine 65.7 mg/dL 10/20/24 05:00 Urine Total Protein 84.0 mg/dL 10/20/24 05:00 10/20/24 04:26 10/20/24 04:26 Assessment and Plan Assessment: 1. Hypervolemic hyponatremia, agree with discontinuation of IV fluids. Continue with IV Lasix. Hold sodium chloride tabs given the significant edema. 2. Possible bronchitis 3. Pyuria rule out UTI 4. Volume overload 5. Hypertension Plan: Continue with IV Lasix DC sodium chloride tabs Repeat sodium this afternoon Continue with antibiotics Follow-up on urine cultures Thank you for the consultation. We will continue to follow the patient with you during her hospitalization.
[2024-10-20 12:51] LABS: Glucose,Whole Blood 260 mg/dL (70-110)
--- NOTE | 2024-10-20 14:13 | P.HPIM ---
History of Present Illness H&P Date: 10/20/24 Chief Complaint: Hyponatremia/UTI/GI bleed HISTORY OF PRESENT ILLNESS: This is a 79 year old female with a previous medical history significant for hypertension and hypertensive cardiovascular disease, hyperlipidemia, diabetes mellitus type 2, and diabetic polyneuropathy, GERD with duodenal ulcer, and obesity with obstructive sleep apnea, and obesity hypoventilation syndrome, chronic diastolic heart failure, patient was last hospitalized at [facility] 06/20/2024 after she was admitted for 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 and decreased solute intake, initially she was treated with IV diuretics, which led to hyponatremia that required treatment with hy pertonic 3% saline along with tolvaptan and urea until her sodium went back to normal, patient was rehospitalized at [facility] August 13, 2024 for what appears to be asthma exacerbation as well as significant hyponatremia as well, and she was treated and she was sent home, she was supposed to see me in the office yesterday however she contacted my office stating that she is having rectal bleeding, her home care nurse stated that she is having hard time getting out of the toilet because of the bleeding, at the same time she is extremely weak beside her sodium was extremely low at the same time therefore the patient was directed to go to the emergency department, she was found to have an sodium of 123, she was also found to have urinary tract infection for which she was started on Azactam 1 g piggyback every 24 hours, as far as every GI bleed the patient refuses a rectal examination at this point in time, and she claimed that this is coming from her hemorrhoids her hemoglobin is around 8.8, her potassium was slightly elevated, because of that the patient was started on IV Protonix 40 mg IV push every 24 hours, along with Azactam 1 g piggyback every 8 hours, she was admitted to the hospital on fluid restriction, discontinued IV fluid, started on Lasix 60 mg IV push every 12 hours along with sodium chloride tablet 1 g orally twice every day serum osmolality, urine osmolarity, urine sodium as well as urine spot for protein and creatinine and uric acid and cortisol level was obtained. REVIEW OF SYSTEMS: Constitutional: No documented fever, no chills, no night sweats. No weight change. Positive for weakness, fatigue or lethargy. No daytime sleepiness. HEENT: No headache. No blurred vision or double vision, no loss of vision. No loss of Hearing, no ringing in the ears, no dizziness. No nasal drainage or congestion. No epistaxis. No sore throat. Lungs: Positive for shortness of breath, occasional cough, no sputum production. No wheezing. Reports dyspnea with activity. Cardiovascular: No chest pain, positive for lower extremity edema. Positive for palpitations. negative for paroxysmal nocturnal dyspnea. Negative for orthopnea. No lightheadedness or dizziness. No syncopal episodes. Abdominal: Reports abdominal pain. No nausea, vomiting. No diarrhea. No constipation. Positive for bloody but no tarry stools reports loss of appetite. Genitourinary: Positive for dysuria, increased frequency, urgency. No urinary retention. Musculoskeletal: No myalgias. Positive muscle weakness, positive for gait dysfunction, no frequent falls. positive for back pain. No neck pain. Integumentary: No wounds, no lesions. No rash or pruritus. No unusual bru ising. No change in hair or nails. Neurologic: No aphasia. No facial droop. No change in mentation. No head injury. No headache. No paralysis. positive for facial paresthesia. Psychiatric: positive for depression, positive for anxiety. No mood swings. Endocrine: abnormal blood sugars. positive for weight change. PAST MEDICAL HISTORY: Hypertension and hypertensive cardiovascular disease. Mixed hyperlipidemia GERD Diabetes Mellitus type 2. Diabetic polyneuropathy. Obesity with YESIKA. Vitamin D deficiency. Asthma. Chronic diastolic heart failure. TIA. PAST SURGICAL HISTORY: Tonsillectomy. Hysterectomy. Tubal ligation Cholecystectomy. Right catarct surgery Right knee surgery Colonoscopy 2008 EGD 2016 SOCIAL HISTORY: Patient is a life long non smoker, she denies any alcohol ingestion, no drug use or abuse, she is a and she lives alone, just lost her recently to ruptured Aortic Aneurysm FAMILY HISTORY: Father at the age of 86 from prostate cancer, Mother at the age of 74 from lung cancer, one brother at the age of 21 from CO poisoning, one daughter with hypertension PHYSICAL EXAMINATION: General: 79 year old female sitting up in bed no apparent distress. HEENT: Head is atraumatic, normocephalic, pupils were equal round reactive to light and recommendation, extraocular muscle movement were intact, sclera nonicteric, conjunctivae were pale, mucous membranes of the mouth are somewhat dry. Neck: Supple, no JVP, normal carotid upstroke bilaterally, no lymphadenopathy. Chest: Decreased breath sounds at the bases, few rhonchi, minimal expiratory wheezes, no chest wall tenderness, no intercostal retractions. Heart: First heart sound is normal, second heart sound is normal there is BIANCA 2/6 located at the left sternal border. Abdomen: Soft, obese nontender, nondistended, positive bowel sounds. Extremities: There is +1 edema no calf tenderness DP +2 bilaterally. Neurologic examination: Patient is awake alert and oriented X3, cranial nerves II-12 appear grossly intact, muscle power were 4 out of 5 in upper extremities and 4 out of 5 in bilateral lower extremities, deep tendon reflexes normal bilaterally. ASSESSMENT AND PLAN: 1. Hypervolemic hyponatremia with decreased solute intake. Continue fluid restriction 1000 cc every 24 hours., increase protein intake, patient is currently on Lasix 60 mg a push every 12 hours, we Will check urine sodium, serum osmolality, urine osmolality, check uric acid, TSH, cortisol level, may need to use Tolvaptan 2. Lower GI bleed likely related to hemorrhoidal bleed. Hemoglobin stable at 8 .8, monitor the patient CBC over the next 24 hours, continue patient on Protonix 40 mg IV push every 24 hours transfuse for hemoglobin less than 7. 3. Recurrent UTI with sepsis. Urine culture, blood culture, start the patient on Azactam 1 g piggyback every 8 hours. 4. Hypertension and hypertensive cardiovascular disease. we will continue with Atenolol 50 mg po bid, Clonidine 0.2 mg 1 tabs po at bedtime, Losartan 100 mg po daily, Amlodipine 5 mg orally daily and we will continue with BP monitoring. 5. Mixed hyperlipidemia. we will continue with low cholesterol diet and exercise and weight loss, patient is not taking any statin at this time, and she refused PCSK9 inhibitor keep LDL-c 55-70 6. Diabetes Mellitus type 2. we will continue with Lantus 12 units at bedtime along with SSI and we will continue with Metformin 1000 mg po daily and Pioglitasone 30 mg po daily, BGM before each meal and at bedtime. 7. Obesity and obstructive sleep apnea and OHS. not able to tolerate CPAP. 8. Vitamin D deficiency. we will continue with vitamin d supplements 9. GERD with PUD. we will continue with Protonix 40 mg IVP daily. 10. Anxiety.we will continue with Xanax as needed. 11. Paroxysmal atrial fibrillation currently in sinus rhythm. Patient is not a candidate for anticoagulation because of recurrent GI bleed. Continue atenolol 50 mg orally twice every day monitor the patient symptoms very closely. 12. DVT Prophylaxis continue heparin 5000 units subcutaneously every 8 hours 13. GI Prophylaxis . we will continue with Pantoprazole 40 mg IV push daily. 14 .Admit to inpatient, estimated length of stay 2 midnights. 15. Full code. Past Medical History Past Medical History: Asthma, Diabetes Mellitus, GERD/Reflux, Hyperlipidemia, Hypertension Additional Past Medical History / Comment(s): Zenker's diverticulum, hemrroids History of Any Multi-Drug Resistant Organisms: None Reported Past Surgical History: Cholecystectomy, Hysterectomy, Orthopedic Surgery, Ton sillectomy, Tubal Ligation Additional Past Surgical History / Comment(s): right knee. right cataract. Past Anesthesia/Blood Transfusion Reactions: No Reported Reaction Past Psychological History: Anxiety Smoking Status: Never smoker Past Alcohol Use History: None Reported Past Drug Use History: None Reported - Past Family History Mother Family Medical History: Cancer Additional Family Medical History / Comment(s): . Father Family Medical History: Cancer Additional Family Medical History / Comment(s): prostate Medications and Allergies Home Medications Medication Instructions Recorded Confirmed Type Pioglitazone [Actos] 15 mg PO DAILY@0900 03/11/16 10/19/24 History atenoloL [Tenormin] 50 mg PO BID@0900,209903/11/16 10/19/24 History metFORMIN HCL [Glucophage] 1,000 mg PO BID@1400,209903/11/16 10/19/24 History ALPRAZolam [Xanax] 0.125 mg PO BID@0900,209908/05/22 10/19/24 History Acetaminophen Tab [Tylenol] 500 mg PO TID@0900,1400,209912/11/23 10/19/24 History Losartan Potassium 100 mg PO DAILY@89912/11/23 10/19/24 History amLODIPine [Norvasc] 5 mg PO DAILY@0900 12/11/23 10/19/24 History Furosemide [Lasix] 20 mg PO BID@0900,209906/20/24 10/19/24 History Furosemide [Lasix] 40 mg PO BID@0900,2100 06/20/24 10/19/24 History Insulin Glargine,Hum.rec.anlog 7 - 17 units SQ HS 08/27/24 10/19/24 History [Lantus Solostar Pen] Loperamide [Imodium] 2 mg PO QID PRN 10/19/24 10/19/24 History Magnesium 250 mg PO HS 10/19/24 10/19/24 History Sodium Chloride Tab 1 gm PO BID 10/19/24 10/19/24 History cloNIDine HCL [Catapres] 0.2 mg PO HS 10/19/24 10/19/24 History Allergies Allergy/AdvReac Type Severity Reaction Status Date / Time cephalexin Allergy Unknown Verified 10/19/24 18:15 ciprofloxacin [From Cipro] Allergy Anaphylaxis Verified 10/19/24 18:15 codeine Allergy Chest Pain Verified 10/19/24 18:15 diclofenac Allergy Anaphylaxis Verified 10/19/24 18:15 difluprednate [From Durezol] Allergy Anaphylaxis Verified 10/19/24 18:15 dog dander Allergy Unknown Verified 10/19/24 18:15 doxycycline [From Vibramycin] Allergy Unknown Verified 10/19/24 18:15 epinephrine Allergy Unknown Verified 10/19/24 18:15 erythromycin base Allergy Unknown Verified 10/19/24 18:15 Fish Containing Products Allergy Anaphylaxis Verified 10/19/24 18:15 iodine Allergy Unknown Verified 10/19/24 18:15 latex Allergy Anaphylaxis Verified 10/19/24 18:15 metronidazole [From Flagyl] Allergy Anaphylaxis Verified 10/19/24 18:15 mold Allergy Unknown Verified 10/19/24 18:15 nepafenac Allergy Anaphylaxis Verified 10/19/24 18:15 ofloxacin [From Floxin] Allergy Anaphylaxis Verified 10/19/24 18:15 Penicillins Allergy Unknown Verified 10/19/24 18:15 Childhood shellfish derived [Shellfish] Allergy Anaphylaxis Verified 10/19/24 18:15 strawberry Allergy Burning & Verified 10/19/24 18:15 swelling Thiazides Allergy Unknown Verified 10/19/24 18:15 clonidine AdvReac Dyspnea Verified 10/19/24 18:15 bandages Allergy Unknown Uncoded 06/20/24 19:44 dust Allergy Unknown Uncoded 06/20/24 19:44 seafood Allergy Anaphylaxis Uncoded 06/20/24 19:44 Physical Exam Vitals: Vital Signs Temp Pulse Pulse Resp BP BP Pulse Ox 10/20/24 02:25 97.6 F 57 L 15 137/69 95 10/19/24 23:15 97.5 F L 61 16 147/72 96 10/19/24 22:24 97.6 F 57 L 18 140/67 96 10/19/24 20:05 56 L 18 139/61 96 10/19/24 15:14 97.4 F L 53 L 20 155/68 96 Intake and Output 10/19/24 10/19/24 10/20/24 14:59 22:59 06:59 Other: Weight 108.862 kg Results CBC & Chem 7: 10/22/24 06:22 10/22/24 06:22 Labs: Abnormal Lab Results - Last 24 Hours (Table) 10/19/24 10/19/24 10/19/24 Range/Units 15:37 15:37 17:11 WBC 11.13 H (4.50-10.00) 10*3/uL RBC 3.59 L (4.10-5.20) 10*6/uL Hgb 8.8 L (12.0-15.0) g/dL Hct 28.1 L (37.2-46.3) % MCV 78.3 L (80.0-97.0) fL MCH 24.5 L (27.0-32.0) pg MCHC 31.3 L (32.0-37.0) g/dL Plt Count 573 H (140-440) 10*3/uL Immature Gran # 0.11 H (0.00-0.04) 10*3/uL Neutrophils # 8.26 H (1.80-7.70) 10*3/uL Sodium 123 L (137-145) mmol/L Potassium 5.7 H (3.5-5.1) mmol/L Chloride 85 L (98-107) mmol/L BUN 35 H (7-17) mg/dL Glucose 199 H (74-99) mg/dL POC Glucose (mg/dL) (70-110) mg/dL Magnesium 1.4 L (1.6-2.3) mg/dL AST 66 H (14-36) U/L ALT 46 H (4-34) U/L Alkaline Phosphatase 346 H (38-126) U/L Urine Appearance Cloudy H (Clear) Ur Leukocyte Esterase Large H (Negative) Urine RBC 6 H (0-5) /hpf Urine WBC 167 H (0-5) /hpf Urine WBC Clumps Moderate H (None) /hpf Urine Bacteria Many H (None) /hpf Urine Mucus Rare H (None) /hpf 10/20/24 10/20/24 Range/Units 00:05 02:19 WBC (4.50-10.00) 10*3/uL RBC (4.10-5.20) 10*6/uL Hgb (12.0-15.0) g/dL Hct (37.2-46.3) % MCV (80.0-97.0) fL MCH (27.0-32.0) pg MCHC (32.0-37.0) g/dL Plt Count (140-440) 10*3/uL Immature Gran # (0.00-0.04) 10*3/uL Neutrophils # (1.80-7.70) 10*3/uL Sodium (137-145) mmol/L Potassium (3.5-5.1) mmol/L Chloride (98-107) mmol/L BUN (7-17) mg/dL Glucose (74-99) mg/dL POC Glucose (mg/dL) 432 H 348 H (70-110) mg/dL Magnesium (1.6-2.3) mg/dL AST (14-36) U/L ALT (4-34) U/L Alkaline Phosphatase (38-126) U/L Urine Appearance (Clear) Ur Leukocyte Esterase (Negative) Urine RBC (0-5) /hpf Urine WBC (0-5) /hpf Urine WBC Clumps (None) /hpf Urine Bacteria (None) /hpf Urine Mucus (None) /hpf
[2024-10-20] MEDS: metFORMIN 500 MG TAB PO SCH (15:46)
--- NOTE | 2024-10-20 16:43 | P.GSCN ---
History of Present Illness Consult date: 10/20/24 Reason for Consult: Dysphagia, rectal bleeding, anemia History of present illness: 79-year-old female presents to the hospital complaining of dysphagia. Says she feels like part of her sandwich is stuck. Says she had some sort of procedure d one by GI back in 2016. Says it was related to a Zenker's diverticulum. Says she had surgery for that. Patient insists it was Dr. Mulligan who did the procedure however. Says that ever since then she has had difficulties with dysphagia. Has gradually improved over the years. Recently is worse again. Says she is mostly on a soft liquidy foods. Also describes intermittent bright red blood per rectum. Says it is hemorrhoid related. Patient refuses colonoscopy and rectal exam. Says that is not why she is here. Review of Systems The patient denies any acute changes in vision or hearing, no chest pain or shortness of breath, no dysuria or hematuria, no headache, no runny nose, no rectal bleeding or melena, no unexplained weight loss Past Medical History Past Medical History: Asthma, Diabetes Mellitus, GERD/Reflux, Hyperlipidemia, Hypertension Additional Past Medical History / Comment(s): Zenker's diverticulum, hemrroids History of Any Multi-Drug Resistant Organisms: None Reported Past Surgical History: Cholecystectomy, Hysterectomy, Orthopedic Surgery, Tonsillectomy, Tubal Ligation Additional Past Surgical History / Comment(s): right knee. right cataract. Past Anesthesia/Blood Transfusion Reactions: No Reported Reaction Past Psychological History: Anxiety Smoking Status: Never smoker Past Alcohol Use History: None Reported Past Drug Use History: None Reported - Past Family History Mother Family Medical History: Cancer Additional Family Medical History / Comment(s): . Father Family Medical History: Cancer Additional Family Medical History / Comment(s): prostate Medications and Allergies Home Medications Medication Instructions Recorded Confirmed Type Pioglitazone [Actos] 15 mg PO DAILY@0900 03/11/16 10/19/24 History atenoloL [Tenormin] 50 mg PO BID@0900,209903/11/16 10/19/24 History metFORMIN HCL [Glucophage] 1,000 mg PO BID@1400,2100 03/11/16 10/19/24 History ALPRAZolam [Xanax] 0.125 mg PO BID@0900,2100 08/05/22 10/19/24 History Acetaminophen Tab [Tylenol] 500 mg PO TID@0900,1400,2100 12/11/23 10/19/24 History Losartan Potassium 100 mg PO DAILY@0900 12/11/23 10/19/24 History amLODIPine [Norvasc] 5 mg PO DAILY@0900 12/11/23 10/19/24 History Furosemide [Lasix] 20 mg PO BID@0900,2100 06/20/24 10/19/24 History Furosemide [Lasix] 40 mg PO BID@0900,2100 06/20/24 10/19/24 History Insulin Glargine,Hum.rec.anlog 7 - 17 units SQ HS 08/27/24 10/19/24 History [Lantus Solostar Pen] Loperamide [Imodium] 2 mg PO QID PRN 10/19/24 10/19/24 History Magnesium 250 mg PO HS 10/19/24 10/19/24 History Sodium Chloride Tab 1 gm PO BID 10/19/24 10/19/24 History cloNIDine HCL [Catapres] 0.2 mg PO HS 10/19/24 10/19/24 History Allergies Allergy/AdvReac Type Severity Reaction Status Date / Time cephalexin Allergy Unknown Verified 10/19/24 18:15 ciprofloxacin [From Cipro] Allergy Anaphylaxis Verified 10/19/24 18:15 codeine Allergy Chest Pain Verified 10/19/24 18:15 diclofenac Allergy Anaphylaxis Verified 10/19/24 18:15 difluprednate [From Durezol] Allergy Anaphylaxis Verified 10/19/24 18:15 dog dander Allergy Unknown Verified 10/19/24 18:15 doxycycline [From Vibramycin] Allergy Unknown Verified 10/19/24 18:15 epinephrine Allergy Unknown Verified 10/19/24 18:15 erythromycin base Allergy Unknown Verified 10/19/24 18:15 Fish Containing Products Allergy Anaphylaxis Verified 10/19/24 18:15 iodine Allergy Unknown Verified 10/19/24 18:15 latex Allergy Anaphylaxis Verified 10/19/24 18:15 metronidazole [From Flagyl] Allergy Anaphylaxis Verified 10/19/24 18:15 mold Allergy Unknown Verified 10/19/24 18:15 nepafenac Allergy Anaphylaxis Verified 10/19/24 18:15 ofloxacin [From Floxin] Allergy Anaphylaxis Verified 10/19/24 18:15 Penicillins Allergy Unknown Verified 10/19/24 18:15 Childhood shellfish derived [Shellfish] Allergy Anaphylaxis Verified 10/19/24 18:15 strawberry Allergy Burning & Verified 10/19/24 18:15 swelling Thiazides Allergy Unknown Verified 10/19/24 18:15 clonidine AdvReac Dyspnea Verified 10/19/24 18:15 bandages Allergy Unknown Uncoded 06/20/24 19:44 dust Allergy Unknown Uncoded 06/20/24 19:44 seafood Allergy Anaphylaxis Uncoded 06/20/24 19:44 Surgical - Exam Vital Signs Temp Pulse Resp BP Pulse Ox 97.4 F L 53 L 20 155/68 96 10/19/24 15:14 10/19/24 15:14 10/19/24 15:14 10/19/24 15:14 10/19/24 15:14 Physical exam: General: Well-developed, well-nourished HEENT: Normocephalic, sclerae nonicteric Abdomen: Nontender, nondistended, obese Extremities: No edema Neuro: Alert and oriented Results - Labs 10/20/24 04:26 10/20/24 04:26 Abnormal Lab Results - Last 24 Hours (Table) 10/19/24 10/19/24 10/19/24 Range/Units 15:37 15:37 17:11 WBC 11.13 H (4.50-10.00) 10*3/uL RBC 3.59 L (4.10-5.20) 10*6/uL Hgb 8.8 L (12.0-15.0) g/dL Hct 28.1 L (37.2-46.3) % MCV 78.3 L (80.0-97.0) fL MCH 24.5 L (27.0-32.0) pg MCHC 31.3 L (32.0-37.0) g/dL RDW (11.5-14.5) % Plt Count 573 H (140-440) 10*3/uL Immature Gran # 0.11 H (0.00-0.04) 10*3/uL Neutrophils # 8.26 H (1.80-7.70) 10*3/uL Monocytes # (0.20-1.00) X 10*3/uL Sodium 123 L (137-145) mmol/L Potassium 5.7 H (3.5-5.1) mmol/L Chloride 85 L (98-107) mmol/L BUN 35 H (7-17) mg/dL Glucose 199 H (74-99) mg/dL POC Glucose (mg/dL) (70-110) mg/dL Phosphorus (2.5-4.5) mg/dL Magnesium 1.4 L (1.6-2.3) mg/dL AST 66 H (14-36) U/L ALT 46 H (4-34) U/L Alkaline Phosphatase 346 H (38-126) U/L Albumin (3.5-5.0) g/dL Urine Appearance Cloudy H (Clear) Ur Leukocyte Esterase Large H (Negative) Urine RBC 6 H (0-5) /hpf Urine WBC 167 H (0-5) /hpf Urine WBC Clumps Moderate H (None) /hpf Urine Bacteria Many H (None) /hpf Urine Mucus Rare H (None) /hpf Ur Random Sodium (40-220) mmol/L 10/20/24 10/20/24 10/20/24 Range/Units 00:05 02:19 04:26 WBC (4.50-10.00) 10*3/uL RBC (4.10-5.20) 10*6/uL Hgb (12.0-15.0) g/dL Hct (37.2-46.3) % MCV (80.0-97.0) fL MCH (27.0-32.0) pg MCHC (32.0-37.0) g/dL RDW (11.5-14.5) % Plt Count (140-440) 10*3/uL Immature Gran # (0.00-0.04) 10*3/uL Neutrophils # (1.80-7.70) 10*3/uL Monocytes # (0.20-1.00) X 10*3/uL Sodium 122 L (137-145) mmol/L Potassium 5.6 H (3.5-5.1) mmol/L Chloride 85 L (98-107) mmol/L BUN 31 H (7-17) mg/dL Glucose 257 H (74-99) mg/dL POC Glucose (mg/dL) 432 H 348 H (70-110) mg/dL Phosphorus 4.7 H (2.5-4.5) mg/dL Magnesium 1.4 L (1.6-2.3) mg/dL AST 48 H (14-36) U/L ALT (4-34) U/L Alkaline Phosphatase 298 H (38-126) U/L Albumin 3.4 L (3.5-5.0) g/dL Urine Appearance (Clear) Ur Leukocyte Esterase (Negative) Urine RBC (0-5) /hpf Urine WBC (0-5) /hpf Urine WBC Clumps (None) /hpf Urine Bacteria (None) /hpf Urine Mucus (None) /hpf Ur Random Sodium (40-220) mmol/L 10/20/24 10/20/24 10/20/24 Range/Units 04:26 05:00 07:42 WBC 15.47 H (4.50-10.00) 10*3/uL RBC 3.19 L (4.10-5.20) 10*6/uL Hgb 7.7 L (12.0-15.0) g/dL Hct 25.7 L (37.2-46.3) % MCV (80.0-97.0) fL MCH 24.1 L (27.0-32.0) pg MCHC 30.0 L (32.0-37.0) g/dL RDW 18.9 H (11.5-14.5) % Plt Count 499 H (140-440) 10*3/uL Immature Gran # 0.12 H (0.00-0.04) 10*3/uL Neutrophils # 11.78 H (1.80-7.70) 10*3/uL Monocytes # 1.21 H (0.20-1.00) X 10*3/uL Sodium (137-145) mmol/L Potassium (3.5-5.1) mmol/L Chloride (98-107) mmol/L BUN (7-17) mg/dL Glucose (74-99) mg/dL POC Glucose (mg/dL) 256 H (70-110) mg/dL Phosphorus (2.5-4.5) mg/dL Magnesium (1.6-2.3) mg/dL AST (14-36) U/L ALT (4-34) U/L Alkaline Phosphatase (38-126) U/L Albumin (3.5-5.0) g/dL Urine Appearance (Clear) Ur Leukocyte Esterase (Negative) Urine RBC (0-5) /hpf Urine WBC (0-5) /hpf Urine WBC Clumps (None) /hpf Urine Bacteria (None) /hpf Urine Mucus (None) /hpf Ur Random Sodium <20 L (40-220) mmol/L Diabetes panel 10/19/24 10/20/24 Range/Units 15:37 04:26 Sodium 123 L 122 L (137-145) mmol/L Potassium 5.7 H 5.6 H (3.5-5.1) mmol/L Chloride 85 L 85 L (98-107) mmol/L Carbon Dioxide 30 26 (22-30) mmol/L BUN 35 H 31 H (7-17) mg/dL Creatinine 0.80 0.72 (0.52-1.04) mg/dL Glucose 199 H 257 H (74-99) mg/dL Calcium 9.9 9.6 (8.4-10.2) mg/dL AST 66 H 48 H (14-36) U/L ALT 46 H 34 (4-34) U/L Alkaline Phosphatase 346 H 298 H (38-126) U/L Total Protein 7.8 6.7 (6.3-8.2) g/dL Albumin 4.1 3.4 L (3.5-5.0) g/dL Calcium panel 10/19/24 10/20/24 Range/Units 15:37 04:26 Calcium 9.9 9.6 (8.4-10.2) mg/dL Phosphorus 4.7 H (2.5-4.5) mg/dL Albumin 4.1 3.4 L (3.5-5.0) g/dL Pituitary panel 10/19/24 10/20/24 Range/Units 15:37 04:26 Sodium 123 L 122 L (137-145) mmol/L Potassium 5.7 H 5.6 H (3.5-5.1) mmol/L Chloride 85 L 85 L (98-107) mmol/L Carbon Dioxide 30 26 (22-30) mmol/L BUN 35 H 31 H (7-17) mg/dL Creatinine 0.80 0.72 (0.52-1.04) mg/dL Glucose 199 H 257 H (74-99) mg/dL Calcium 9.9 9.6 (8.4-10.2) mg/dL Adrenal panel 10/19/24 10/20/24 Range/Units 15:37 04:26 Sodium 123 L 122 L (137-145) mmol/L Potassium 5.7 H 5.6 H (3.5-5.1) mmol/L Chloride 85 L 85 L (98-107) mmol/L Carbon Dioxide 30 26 (22-30) mmol/L BUN 35 H 31 H (7-17) mg/dL Creatinine 0.80 0.72 (0.52-1.04) mg/dL Glucose 199 H 257 H (74-99) mg/dL Calcium 9.9 9.6 (8.4-10.2) mg/dL Total Bilirubin 0.7 0.3 (0.2-1.3) mg/dL AST 66 H 48 H (14-36) U/L ALT 46 H 34 (4-34) U/L Alkaline Phosphatase 346 H 298 H (38-126) U/L Total Protein 7.8 6.7 (6.3-8.2) g/dL Albumin 4.1 3.4 L (3.5-5.0) g/dL Assessment and Plan (1) Dysphagia Narrative/Plan: 79-year-old female with dysphagia and sensation of esophageal foreign body. Options reviewed. Patient agreeable at this time for upper endoscopy. Still refusing rectal exam or colonoscopy. Will try to convince the patient tomorrow while she is under anesthesia for us to at least do a physical exam digital rectal examination not endoscopically to evaluate for hemorrhoids or fissures. Keep on liquid diet for now. Current Visit: Yes Status: Acute Code(s): R13.10 - DYSPHAGIA, UNSPECIFIED SNOMED Code(s): 73044555
[2024-10-20 17:23] LABS: Glucose,Whole Blood 308 mg/dL (70-110)
[2024-10-20 20:30] LABS: Glucose,Whole Blood 284 mg/dL (70-110)
[2024-10-20] MEDS: INSULIN GLARGINE (LANTUS) 100 UNIT/ML SYR SQ SCH (23:23)
[2024-10-20] MEDS: MAGNESIUM OXIDE 400 MG TAB PO SCH (23:23)
[2024-10-21 07:54] LABS: Glucose,Whole Blood 186 mg/dL (70-110)
[2024-10-21 09:48] LABS: African American GFR (CKD) 74 (>60 ml/min/1.73 sqM); Anion Gap 7 mmol/L; Blood Urea Nitrogen 25 mg/dL (7-17); Calcium 9.5 mg/dL (8.4-10.2); Carbon Dioxide 31 mmol/L (22-30); Chloride 90 mmol/L (98-107); Glucose 173 mg/dL (74-99); Non-African American GFR(CKD) 65 (>60 ml/min/1.73 sqM); Potassium 4.7 mmol/L (3.5-5.1); Sodium 128 mmol/L (137-145)
[2024-10-21] MEDS: LOPERAMIDE 2 MG CAP PO STA (12:53)
--- NOTE | 2024-10-21 13:05 | P.PN ---
Subjective Progress Note Date: 10/21/24 HISTORY OF PRESENT ILLNESS: This is a 79 year old female with a previous medical history signif icant for hypertension and hypertensive cardiovascular disease, hyperlipidemia, diabetes mellitus type 2, and diabetic polyneuropathy, GERD with duodenal ulcer, and obesity with obstructive sleep apnea, and obesity hypoventilation syndrome, chronic diastolic heart failure, patient was last hospitalized at [facility] 06/20/2024 after she was admitted for 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 and d ecreased solute intake, initially she was treated with IV diuretics, which led to hyponatremia that required treatment with hypertonic 3% saline along with tolvaptan and urea until her sodium went back to normal, patient was rehospitalized at [facility] August 13, 2024 for what appears to be asthma exacerbation as well as significant hyponatremia as well, and she was treated and she was sent home, she was supposed to see me in the office yesterday however she contacted my office stating that she is having rectal bleeding, her home care nurse stated that she is having hard time getting out of the toilet because of the bleeding, at the same time she is extremely weak beside her sodium was extremely low at the same time therefore the patient was directed to go to the emergency department, she was found to have an sodium of 123, she was also found to have urinary tract infection for which she was started on Azactam 1 g piggyback every 24 hours, as far as every GI bleed the patient refuses a rectal examination at this point in time, and she claimed that this is coming from her hemorrhoids her hemoglobin is around 8.8, her potassium was slightly elevated, because of that the patient was started on IV Protonix 40 mg IV push every 24 hours, along with Azactam 1 g piggyback every 8 hours, she was admitted to the hospital on fluid restriction, discontinued IV fluid, started on Lasix 60 mg IV push every 12 hours along with sodium chloride tablet 1 g orally twice every day serum osmolality, urine osmolarity, urine sodium as well as urine spot for protein and creatinine and uric acid and cortisol level was obtained. 10/21: Patient is sitting up in bed in no apparent distress, her sodium is up to 128, she continues to have swelling in both lower extremities, she was taken off sodium chloride tablets, continue Lasix 60 mg IV push every 12 hours, continue Protonix 40 mg IV push every 24 hours, she is scheduled to go for EGD with Dr. Wells, she will need to have a colonoscopy hopefully the next 24 hours, hemoglobin is down to 7.7, she does not appear to be hypertensive at this time, we will continue to follow-up with the patient very closely, she continues to tolerate her treatment very well. Continue fluid restriction to 1000 cc every 24 hours, her serum asthma level is normal at this time, we will follow-up with the patient very closely her prognosis very guarded, she her daughter was at the bedside she was updated about her current condition. REVIEW OF SYSTEMS: Constitutional: No documented fever, no chills, no night sweats. No weight change. Positive for weakness, fatigue or lethargy. No daytime sleepiness. HEENT: No headache. No blurred vision or double vision, no loss of vision. No loss of Hearing, no ringing in the ears, no dizziness. No nasal drainage or congestion. No epistaxis. No sore throat. Lungs: Positive for shortness of breath, occasional cough, no sputum production. No wheezing. Reports dyspnea with activity. Cardiovascular: No chest pain, positive for lower extremity edema. Positive for palpitations. negative for paroxysmal nocturnal dyspnea. Negative for orthopnea. No lightheadedness or dizziness. No syncopal episodes. Abdominal: Reports abdominal pain. No nausea, vomiting. No diarrhea. No constipation. Positive for bloody but no tarry stools reports loss of appetite. Genitourinary: Positive for dysuria, increased frequency, urgency. No urinary retention. Musculoskeletal: No myalgias. Positive muscle weakness, positive for gait dysfunction, no frequent falls. positive for back pain. No neck pain. Integumentary: No wounds, no lesions. No rash or pruritus. No unusual bruising. No change in hair or nails. Neurologic: No aphasia. No facial droop. No change in mentation. No head injury. No headache. No paralysis. positive for facial paresthesia. Psychiatric: positive for depression, positive for anxiety. No mood swings. Endocrine: abnormal blood sugars. positive for weight change. PHYSICAL EXAMINATION: General: 79 year old female sitting up in bed no apparent distress. HEENT: Head is atraumatic, normocephalic, pupils were equal round reactive to light and recommendation, extraocular muscle movement were intact, sclera nonicteric, conjunctivae were pale, mucous membranes of the mouth are somewhat dry. Neck: Supple, no JVP, normal carotid upstroke bilaterally, no lymphadenopathy. Chest: Decreased breath sounds at the bases, few rhonchi, minimal expiratory wheezes, no chest wall tenderness, no intercostal retractions. Heart: First heart sound is normal, second heart sound is normal there is BIANCA 2/6 located at the left sternal border. Abdomen: Soft, obese nontender, nondistended, positive bowel sounds. Extremities: There is +1 edema no calf tenderness DP +2 bilaterally. Neurologic examination: Patient is awake alert and oriented X3, cranial nerves II-12 appear grossly intact, muscle power were 4 out of 5 in upper extremities and 4 out of 5 in bilateral lower extremities, deep tendon reflexes normal bilaterally. ASSESSMENT AND PLAN: 1. Hypervolemic hyponatremia with decreased solute intake. Continue fluid restriction 1000 cc every 24 hours., increase protein intake, patient is currently on Lasix 60 mg a push every 12 hours, sodium today is better 128. 2. Lower GI bleed likely related to hemorrhoidal bleed. Hemoglobin stable at 8.8, monitor the patient CBC over the next 24 hours, continue patient on Protonix 40 mg IV push every 24 hours transfuse for hemoglobin less than 7. EGD today. 3. Recurrent UTI with sepsis. Urine culture, blood culture, start the patient on Azactam 1 g piggyback every 8 hours, check urine culture and blood culture 4. Hypertension and hypertensive cardiovascular disease. we will continue with Atenolol 50 mg po bid, Clonidine 0.2 mg 1 tabs po at bedtime, Losartan 100 mg po daily, Amlodipine 5 mg orally daily and we will continue with BP monitoring. 5. Mixed hyperlipidemia. we will continue with low cholesterol diet and exercise and weight loss, patient is not taking any statin at this time, and she refused PCSK9 inhibitor keep LDL-c 55-70 6. Diabetes Mellitus type 2. we will continue with Lantus 12 units at bedtime along with SSI and we will continue with Metformin 1000 mg po daily and Pioglitasone 30 mg po daily, BGM before each meal and at bedtime. 7. Obesity and obstructive sleep apnea and OHS. not able to tolerate CPAP. 8. Vitamin D deficiency. we will continue with vitamin d supplements 9. GERD with PUD. we will continue with Protonix 40 mg IVP daily. 10. Anxiety.we will continue with Xanax as needed. 11. Paroxysmal atrial fibrillation currently in sinus rhythm. Patient is not a candidate for anticoagulation because of recurrent GI bleed. Continue atenolol 50 mg orally twice every day monitor the patient symptoms very closely. 12. DVT Prophylaxis continue heparin 5000 units subcutaneously every 8 hours 13. GI Prophylaxis . we will continue with Pantoprazole 40 mg IV push daily. 14. Very guarded prognosis. Objective - Vital Signs Vital signs: Vital Signs Temp 97.9 F 10/21/24 12:51 Pulse 57 L 10/21/24 12:51 Resp 18 10/21/24 12:51 BP 149/63 10/21/24 12:51 Pulse Ox 93 L 10/21/24 12:51 FiO2 Intake & Output 10/20/24 10/21/24 10/21/24 18:59 06:59 18:59 Intake Total 720 Output Total 1100 1550 1000 Balance -380 -1550 -1000 Intake: Oral 720 Output: Urine 1100 1550 1000 Uretheral (Harding) 1000 Other: Voiding Method Indwelling Catheter - Labs CBC & Chem 7: 10/22/24 06:22 10/22/24 06:22 Labs: Abnormal Lab Results - Last 24 Hours (Table) 10/20/24 10/20/24 10/20/24 Range/Units 16:02 17:22 20:28 Sodium 123 L (137-145) mmol/L Chloride (98-107) mmol/L Carbon Dioxide (22-30) mmol/L BUN (7-17) mg/dL Glucose (74-99) mg/dL POC Glucose (mg/dL) 308 H 284 H (70-110) mg/dL 10/21/24 10/21/24 Range/Units 07:53 09:12 Sodium 128 L (137-145) mmol/L Chloride 90 L (98-107) mmol/L Carbon Dioxide 31 H (22-30) mmol/L BUN 25 H (7-17) mg/dL Glucose 173 H (74-99) mg/dL POC Glucose (mg/dL) 186 H (70-110) mg/dL Microbiology - Last 24 Hours (Table) 10/19/24 17:11 Urine Culture - Preliminary Urine,Voided Group D Enterococcus
--- NOTE | 2024-10-21 13:28 | P.PN ---
Subjective Patient is seen for follow-up for hyponatremia, mostly hypervolemic and improved with diuresis. Serum sodium improved to 128 today. Overall feeling better No complaints of shortness of breath Cough has improved. Objective - Vital Signs Vital signs: Vital Signs Temp 97.9 F 10/21/24 12:51 Pulse 57 L 10/21/24 12:51 Resp 18 10/21/24 12:51 BP 149/63 10/21/24 12:51 Pulse Ox 93 L 10/21/24 12:51 FiO2 Intake & Output 10/20/24 10/21/24 10/21/24 18:59 06:59 18:59 Intake Total 720 Output Total 1100 1550 1000 Balance -380 -1550 -1000 Intake: Oral 720 Output: Urine 1100 1550 1000 Uretheral (Harding) 1000 Other: Voiding Method Indwelling Catheter - Exam Patient is awake, comfortable, no acute distress. Examination of the heart S1 and S2 Examination of the lungs bilateral breath sounds are heard, occasional wheezing Abdomen is soft obese Examination of lower extremities shows edema 2+ bilaterally TELEVISION NEWS REPORTER exam grossly intact - Labs CBC & Chem 7: 10/20/24 04:26 10/21/24 09:12 Labs: Abnormal Lab Results - Last 24 Hours (Table) 10/20/24 10/20/24 10/20/24 Range/Units 16:02 17:22 20:28 Sodium 123 L (137-145) mmol/L Chloride (98-107) mmol/L Carbon Dioxide (22-30) mmol/L BUN (7-17) mg/dL Glucose (74-99) mg/dL POC Glucose (mg/dL) 308 H 284 H (70-110) mg/dL 10/21/24 10/21/24 Range/Units 07:53 09:12 Sodium 128 L (137-145) mmol/L Chloride 90 L (98-107) mmol/L Carbon Dioxide 31 H (22-30) mmol/L BUN 25 H (7-17) mg/dL Glucose 173 H (74-99) mg/dL POC Glucose (mg/dL) 186 H (70-110) mg/dL Microbiology - Last 24 Hours (Table) 10/19/24 17:11 Urine Culture - Preliminary Urine,Voided Group D Enterococcus Assessment and Plan Assessment: 1. Hypervolemic hyponatremia, maintained on IV Lasix and improving. Sodium chloride tabs on hold due to hypervolemia 2. Possible bronchitis 3. Pyuria rule out UTI 4. Volume overload 5. Hypertension Plan: Continue with IV Lasix Continue off of sodium chloride tabs Continue with antibiotics
[2024-10-21] MEDS ORDERED: LIDOCAINE 1% INJ 10MG/ML (20 ML MDV) ONE (15:28)
[2024-10-21] MEDS ORDERED: PROPOFOL 10 MG/ML 20 ML VIAL IV ONE (15:28)
[2024-10-21] MEDS: IV FLUID CONTINUATION 1,000 ML IV ONE (15:28)
--- NOTE | 2024-10-21 15:47 | P.PCN ---
Date of Procedure: 10/21/24 Procedure(s) Performed: Preoperative Dx: Dysphagia, GERD Postoperative Dx: Mild gastritis, mild Schatzki's ring, Zenker's diverticulum, external hemorrhoids Procedure: EGD with Bx Anesthesia: Sedation Endoscopist: Dr. Engel Specimens: Antrum Endoscopic Procedure: The patient was on the endoscopy table in the left decubitus position. The Olympus gastroscope was inserted into the oropharynx and passed under direct visualization to the region of the third portion of the duodenum. From that point the scope was slowly withdrawn inspecting all surfaces carefully. There were no neoplastic inflammatory or polypoid lesions throughout the duodenum. The pylorus was widely patent. The stomach was carefully inspected. There was mild gastritis present. A biopsy of the antrum took place to rule out H. pylori. Retroflexion revealed a normal hiatus. The esophagus was then carefully examined. The patient at the GE junction had very slight narrowing consistent with early Schatzki's ring formation. Our 9.9 mm scope passed through there without difficulties. The esophagus was mildly tortuous. At the junction between the pharynx and the proximal esophagus there was a outpouching posteriorly consistent with the patient's history of known Zenker's diverticulum. There was minimal inflammation there. There was no food noted there. There was a wide opening of the Zenker's diverticulum. No biopsies took place there. No dilation took place. Following that the patient was kept in the decubitus position. External rectal examination was performed. I obtained consent from the patient prior to anesthesia to evaluate her hemorrhoids. The patient did have visible external hemorrhoids without any evidence of thrombosis or bleeding. The patient was then taken to the recovery room in stable condition per anesthesia guidelines. Recommendations: Will discuss options of colonoscopy with patient. Yesterday she was adamant that she did not want to have one done. Apparently patient is more willing to have that done. Resume regular diet.
[2024-10-21 16:11] LABS: Glucose,Whole Blood 221 mg/dL (70-110)
[2024-10-21] MEDS: PEG 3350 (236 GM/BTL) + LYTES 4,000 ML BOTTLE PO ONE (17:52)
[2024-10-21 19:57] LABS: Glucose,Whole Blood 229 mg/dL (70-110)
[2024-10-22 04:53] LABS: Glucose,Whole Blood 257 mg/dL (70-110)
--- NOTE | 2024-10-22 05:46 | CT ---
EXAMINATION TYPE: CODE STROKE: CT brain wo contr DATE OF EXAM: 10/22/2024 COMPARISON: NONE CLINICAL INDICATION: Female, 79 years old with history of Neuro deficit, acute, stroke suspected, TECHNIQUE: CT scan of the head is performed without contrast. Automated Exposure Control for Dose Reduction was Utilized. FINDINGS: There is no acute intracranial hemorrhage or midline shift identified. There is mild diff use ventricular and sulcal prominence consistent with diffuse age-related cerebral atrophy. There is mild to moderate low-attenuation in the periventricular white matter consistent with chronic small v essel ischemic change. Bilateral aphakia is seen. The paranasal sinuses are grossly clear. IMPRESSION: No acute intracranial hemorrhage or midline shift. If clinical concern for acute stroke persists further investigation with MRI study may be warranted. [facility], Workstation: [id number], 10/22/2024 5:44 AM
[2024-10-22 07:06] LABS: Glucose,Whole Blood 227 mg/dL (70-110)
--- NOTE | 2024-10-22 07:47 | US ---
EXAMINATION TYPE: US carotid duplex BILAT DATE OF EXAM: 10/22/2024 COMPARISON: 08/06/2022 CLINICAL INDICATION: Female, 79 years old with history of TIA S/S; ? AMS, Hx TIA x 4 Additional History: .... TECHNIQUE: Grayscale, color Doppler and spectral Doppler evaluation of the bilateral carotid systems and vertebral arteries. Indirect Doppler criteria was utilized. FINDINGS: EXAM MEASUREMENTS: RIGHT: Peak Systolic Velocity (PSV) cm/sec ----- Right CCA: 88 ----- Right ICA: 98 ----- Right ECA: 102 ICA/CCA ratio: 1.1 RIGHT: End Diastole cm/sec ----- Right CCA: 12 ----- Right ICA: 19 ----- Right ECA: 15 LEFT: Peak Systolic Velocity (PSV) cm/sec ----- Left CCA: 119 ----- Left ICA: 101 ----- Left ECA: 70 ICA/CCA ratio: 0.9 LEFT: End Diastole cm/sec ----- Left CCA: 18 ----- Left ICA: 22 ----- Left ECA: 14 VERTEBRALS (direction of flow): Right Vertebral: Antegrade Left Vertebral: Antegrade Rhythm: Normal ROTATING EQUIPMENT ENGINEER NOTES: No intimal thickening, elevated velocities, or plaque seen. Difficult to insonate left side. Color Doppler imaging shows patency with blood flow throughout the carotid artery. Spectral waveforms are within normal limits. IMPRESSION: Right: No hemodynamically significant stenosis. Left: No hemodynamically significant stenosis. Criteria for Assigning % of Stenosis / Diameter reduction (Estimation based on the indirect measurements of the internal carotid artery velocities (ICA PSV). 1. Normal (no stenosis)=ICA PSV < 180 cm/s: ratio < 2.0: ICA EDV<40 cm/s. 2. Less than 50% stenosis=ICA PSV < 180 cm/s: ratio < 2.0: ICA EDV<40 cm/s. 3. 50 to 69% stenosis=ICA PSV of 180 to 230 cm/s: ration 2.0 ? 4.0: ICA EDV 40-100 cm/s. PSV 125-180 cm/sec and ICA/CCA PSV Ratio ? 2.0 is also consistent with 50-69% stenosis 4. Greater than 70% stenosis to near occlusion= ICA PSV > 230 cm/s: ratio > 4.0: ICA EDV > 100 cm/s. 5. Near occlusion= ICA PSV velocities may be low or undetectable: variable ratio and ICA EDV. 6. Total occlusion=unable to detect flow. [facility], , 10/22/2024 7:45 AM
[2024-10-22 08:54] LABS: Basophils # (A) 0.10 X 10*3/uL (0.00-0.10); Basophils % (A) 0.9 %; Eosinophils # (A) 0.33 X 10*3/uL (0.04-0.35); Eosinophils % (A) 2.9 %; HCT 26.8 % (37.2-46.3); HGB 8.2 g/dL (12.0-15.0); Immature Grans, Automated 0.70 %; Lymphocytes # (A) 1.13 X 10*3/uL (0.90-5.00); Lymphocytes % (A) 10.0 %; MCH 24.8 pg (27.0-32.0); MCHC 30.6 g/dL (32.0-37.0); MCV 81.0 FL (80.0-97.0); Monocytes # (A) 1.13 X 10*3/uL (0.20-1.00); Monocytes % (A) 10.0 %; NRBC Per 100 WBC 0 X 10*3/uL (0.00-0.01); Neutrophils # (A) 8.52 X 10*3/uL (1.80-7.70); Neutrophils % (A) 75.5 %; Platelet Count 467 X 10*3/uL (140-440); RBC 3.31 X 10*6/uL (4.10-5.20); RDW 19.1 % (11.5-14.5); WBC 11.29 X 10*3/uL (4.50-10.00)
[2024-10-22 09:16] LABS: ALT 38 U/L (8-44); AST 43 U/L (13-35); Albumin 3.3 g/dL (3.8-4.9); Albumin/Globulin Ratio 1.03 Ratio (1.60-3.17); Alkaline Phosphatase 316 U/L (41-126); Anion Gap 12.80 mmol/L (4.00-12.00); BUN/Creat Ratio 28.86 Ratio (12.00-20.00); Blood Urea Nitrogen 20.2 mg/dL (9.0-27.0); Calcium 9.1 mg/dL (8.7-10.3); Carbon Dioxide 28.2 mmol/L (21.6-31.8); Chloride 91 mmol/L (96-109); Globulin 3.2 g/dL (1.6-3.3); Glucose 226 mg/dL (70-110); Potassium 3.8 mmol/L (3.5-5.5); Sodium 132 mmol/L (135-145); Total Protein 6.5 g/dL (6.2-8.2)
--- NOTE | 2024-10-22 11:25 | CA ---
Transthoracic Echo Report Name: Lorrie Betts Age: 79 Gender: F : 1945 Exam Date: 10/22/2024 07:42 Exam Location: [facility] Ht (in): 65 Wt (lb): 240 Ordering Physician: Dayton Fung MD Attending/Referring Phys: Joint Machine Operator Bernadette Higgins RDCS Procedure CPT: Indications: TIA S/S Cardiac Hx: Technical Quality: Technically difficult study Contrast 1: Definity Total Dose (mL): 2 Contrast 2: Total Dose (mL): MEASUREMENTS (Male / Female) Normal Values 2D ECHO LV Diastolic Diameter PLAX 5.1 cm 4.2 - 5.9 / 3.9 - 5.3 cm LV Systolic Diameter PLAX 3.1 cm IVS Diastolic Thickness 1.0 cm 0.6 - 1.0 / 0.6 - 0.9 cm LVPW Diastolic Thickness 1.0 cm 0.6 - 1.0 / 0.6 - 0.9 cm LV Relative Wall Thickness 0.4 RV Internal Dim ED PLAX 4.5 cm LVOT Diameter 1.6 cm LA Systolic Diameter LX 4.1 cm 3.0 - 4.0 / 2.7 - 3.8 cm LA Volume 80.5 cm??? 18 - 58 / 22 - 52 cm??? LA Volume Index 35.2 cm???/m??? 16 - 28 cm???/m??? DOPPLER MV Peak Velocity 119.2 cm/s MV Peak Gradient 5.7 mmHg MV Mean Velocity 70.8 cm/s MV Mean Gradient 2.3 mmHg MV Velocity Time Integral 36.9 cm MV Area PHT 3.6 cm??? Mitral E Point Velocity 124.4 cm/s Mitral A Point Velocity 100.4 cm/s Mitral E to A Ratio 1.2 MV Deceleration Time 209.6 ms TR Peak Velocity 358.2 cm/s TR Peak Gradient 51.3 mmHg Right Atrial Pressure 20.0 mmHg Pulmonary Artery Systolic Pressu 71.3 mmHg Right Ventricular Systolic Press 71.3 mmHg FINDINGS Left Ventricle Left ventricular ejection fraction is estimated at 60-65 %. No obvious regional wall motion abnormalities. Left ventricular wall thickness normal. Left ventricular cavity size normal. Right Ventricle Right ventricular dilatation. Severe pulmonary hypertension. Right ventricular systolic pressure estimated at 71 mm hg. Right Atrium Severe right atrial dilatation. Left Atrium Mildly increased left atrial diameter. Moderately increased left atrial volume. Mildly increased left atrial area. Mitral Valve Mitral valve thickened. Mitral annular calcification. No mitral stenosis. Mild- to-moderate mitral regurgitation. Aortic Valve Trileaflet aortic valve. No aortic valve stenosis or regurgitation. Tricuspid Valve Structurally normal tricuspid valve. No tricuspid stenosis. Moderate tricuspid regurgitation. Pulmonic Valve Structurally normal pulmonic valve. No pulmonic stenosis. Trace pulmonic regurgitation. Pericardium No pericardial effusion. Aorta Aortic annulus normal. CONCLUSIONS Reason: TIA Normal LV size and function Right ventricular enlargement with severely elevated right ventricular systolic pressures Previewed by: Dr. Lennox Johnson MD (Electronically Signed) Final Date: 22 October 2024 11:24
[2024-10-22 11:47] LABS: Glucose,Whole Blood 222 mg/dL (70-110)
--- NOTE | 2024-10-22 13:07 | P.PN ---
Subjective Progress Note Date: 10/22/24 Principal diagnosis: GI bleed, dysphagia Patient had a TIA subjectively this morning. Being worked up by neurology. Still has some mild residual neurologic complaints. No further bleeding. Patient apparently took much of her bowel prep but still had loose brown stools. They were going to do enemas this morning in the hopes that we could proceed with colonoscopy however after the acute neurologic event the patient is now refusing colonoscopy. She is requesting regular diet. Objective - Vital Signs Vital signs: Vital Signs Temp 97.5 F L 10/22/24 09:00 Pulse 53 L 10/22/24 11:54 Resp 17 10/22/24 11:54 BP 152/69 10/22/24 11:54 Pulse Ox 95 10/22/24 11:54 FiO2 Intake & Output 10/21/24 10/22/24 10/22/24 18:59 06:59 18:59 Intake Total 220 120 Output Total 2100 3375 375 Balance -7660 -4065 -255 Intake: IV 100 Oral 120 120 Output: Urine 2100 3375 375 Uretheral (Harding) 1000 400 Other: Voiding Method Indwelling Catheter Indwelling Catheter Indwelling Catheter # Bowel Movements 8 1 - Exam Abdomen: Soft, nondistended, nontender - Labs CBC & Chem 7: 10/22/24 06:22 10/22/24 06:22 Labs: Abnormal Lab Results - Last 24 Hours (Table) 10/21/24 10/21/24 10/22/24 Range/Units 16:10 19:56 04:51 WBC (4.50-10.00) X 10*3/uL RBC (4.10-5.20) X 10*6/uL Hgb (12.0-15.0) g/dL Hct (37.2-46.3) % MCH (27.0-32.0) pg MCHC (32.0-37.0) g/dL RDW (11.5-14.5) % Plt Count (140-440) X 10*3/uL Immature Gran # (0.00-0.04) X 10*3/uL Neutrophils # (1.80-7.70) X 10*3/uL Monocytes # (0.20-1.00) X 10*3/uL Sodium (135-145) mmol/L Chloride (96-109) mmol/L Anion Gap (4.00-12.00) mmol/L BUN/Creatinine Ratio (12.00-20.00) Ratio Glucose (70-110) mg/dL POC Glucose (mg/dL) 221 H 229 H 257 H (70-110) mg/dL AST (13-35) U/L Alkaline Phosphatase (41-126) U/L Albumin (3.8-4.9) g/dL Albumin/Globulin Ratio (1.60-3.17) Ratio 10/22/24 10/22/24 10/22/24 Range/Units 06:22 06:22 07:04 WBC 11.29 H (4.50-10.00) X 10*3/uL RBC 3.31 L (4.10-5.20) X 10*6/uL Hgb 8.2 L (12.0-15.0) g/dL Hct 26.8 L (37.2-46.3) % MCH 24.8 L (27.0-32.0) pg MCHC 30.6 L (32.0-37.0) g/dL RDW 19.1 H (11.5-14.5) % Plt Count 467 H (140-440) X 10*3/uL Immature Gran # 0.08 H (0.00-0.04) X 10*3/uL Neutrophils # 8.52 H (1.80-7.70) X 10*3/uL Monocytes # 1.13 H (0.20-1.00) X 10*3/uL Sodium 132 L (135-145) mmol/L Chloride 91 L (96-109) mmol/L Anion Gap 12.80 H (4.00-12.00) mmol/L BUN/Creatinine Ratio 28.86 H (12.00-20.00) Ratio Glucose 226 H (70-110) mg/dL POC Glucose (mg/dL) 227 H (70-110) mg/dL AST 43 H (13-35) U/L Alkaline Phosphatase 316 H (41-126) U/L Albumin 3.3 L (3.8-4.9) g/dL Albumin/Globulin Ratio 1.03 L (1.60-3.17) Ratio 10/22/24 Range/Units 11:46 WBC (4.50-10.00) X 10*3/uL RBC (4.10-5.20) X 10*6/uL Hgb (12.0-15.0) g/dL Hct (37.2-46.3) % MCH (27.0-32.0) pg MCHC (32.0-37.0) g/dL RDW (11.5-14.5) % Plt Count (140-440) X 10*3/uL Immature Gran # (0.00-0.04) X 10*3/uL Neutrophils # (1.80-7.70) X 10*3/uL Monocytes # (0.20-1.00) X 10*3/uL Sodium (135-145) mmol/L Chloride (96-109) mmol/L Anion Gap (4.00-12.00) mmol/L BUN/Creatinine Ratio (12.00-20.00) Ratio Glucose (70-110) mg/dL POC Glucose (mg/dL) 222 H (70-110) mg/dL AST (13-35) U/L Alkaline Phosphatase (41-126) U/L Albumin (3.8-4.9) g/dL Albumin/Globulin Ratio (1.60-3.17) Ratio Microbiology - Last 24 Hours (Table) 10/19/24 17:11 Urine Culture - Final Urine,Voided Enterococcus faecium Assessment and Plan (1) Dysphagia Narrative/Plan: Patient's hemoglobin stable. No active bleeding. Given the patient's comorbidities and recent neurologic issues favor postponing colonoscopy at this time and consider outpatient workup. Patient is agreeable with that plan. Resume regular diet. Current Visit: Yes Status: Acute Code(s): R13.10 - DYSPHAGIA, UNSPECIFIED SNOMED Code(s): 26974764
--- NOTE | 2024-10-22 13:53 | P.PN ---
Subjective Progress Note Date: 10/22/24 HISTORY OF PRESENT ILLNESS: This is a 79 year old female with a previous medical history signif icant for hypertension and hypertensive cardiovascular disease, hyperlipidemia, diabetes mellitus type 2, and diabetic polyneuropathy, GERD with duodenal ulcer, and obesity with obstructive sleep apnea, and obesity hypoventilation syndrome, chronic diastolic heart failure, patient was last hospitalized at [facility] 06/20/2024 after she was admitted for 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 and d ecreased solute intake, initially she was treated with IV diuretics, which led to hyponatremia that required treatment with hypertonic 3% saline along with tolvaptan and urea until her sodium went back to normal, patient was rehospitalized at [facility] August 13, 2024 for what appears to be asthma exacerbation as well as significant hyponatremia as well, and she was treated and she was sent home, she was supposed to see me in the office yesterday however she contacted my office stating that she is having rectal bleeding, her home care nurse stated that she is having hard time getting out of the toilet because of the bleeding, at the same time she is extremely weak beside her sodium was extremely low at the same time therefore the patient was directed to go to the emergency department, she was found to have an sodium of 123, she was also found to have urinary tract infection for which she was started on Azactam 1 g piggyback every 24 hours, as far as every GI bleed the patient refuses a rectal examination at this point in time, and she claimed that this is coming from her hemorrhoids her hemoglobin is around 8.8, her potassium was slightly elevated, because of that the patient was started on IV Protonix 40 mg IV push every 24 hours, along with Azactam 1 g piggyback every 8 hours, she was admitted to the hospital on fluid restriction, discontinued IV fluid, started on Lasix 60 mg IV push every 12 hours along with sodium chloride tablet 1 g orally twice every day serum osmolality, urine osmolarity, urine sodium as well as urine spot for protein and creatinine and uric acid and cortisol level was obtained. 10/21: Patient is sitting up in bed in no apparent distress, her sodium is up to 128, she continues to have swelling in both lower extremities, she was taken off sodium chloride tablets, continue Lasix 60 mg IV push every 12 hours, continue Protonix 40 mg IV push every 24 hours, she is scheduled to go for EGD with Dr. Wells, she will need to have a colonoscopy hopefully the next 24 hours, hemoglobin is down to 7.7, she does not appear to be hypertensive at this time, we will continue to follow-up with the patient very closely, she continues to tolerate her treatment very well. Continue fluid restriction to 1000 cc every 24 hours, her serum asthma level is normal at this time, we will follow-up with the patient very closely her prognosis very guarded, she her daughter was at the bedside she was updated about her current condition. 10/22: Patient developed to have a right-sided numbness a code stroke was called on the patient, patient refused to have an IV contrast, she did have a CT scan brain did not show evidence of acute abnormalities, the plan is to transfer the patient to [facility]. awaiting bed availability, neurology consultation is on board, will continue to follow-up with the patient very closely, patient underwent EGD yesterday that showed evidence of Zenker diverticulum, as well as early Chesky ring and minimal gastritis, rectal examination was performed after obtaining consent from the patient under anesthesia and that showed visible hemorrhoids without evidence of thrombosis or bleeding at that time, patient was supposed to go for colonoscopy but we will hold off that until the patient passes through the code stroke. REVIEW OF SYSTEMS: Constitutional: No documented fever, no chills, no night sweats. No weight change. Positive for weakness, fatigue or lethargy. No daytime sleepiness. HEENT: No headache. No blurred vision or double vision, no loss of vision. No loss of Hearing, no ringing in the ears, no dizziness. No nasal drainage or congestion. No epistaxis. No sore throat. Lungs: Positive for shortness of breath, occasional cough, no sputum production. No wheezing. Reports dyspnea with activity. Cardiovascular: No chest pain, positive for lower extremity edema. Positive for palpitations. negative for paroxysmal nocturnal dyspnea. Negative for orthopnea. No lightheadedness or dizziness. No syncopal episodes. Abdominal: Reports abdominal pain. No nausea, vomiting. No diarrhea. No constipation. Positive for bloody but no tarry stools reports loss of appetite. Genitourinary: Positive for dysuria, increased frequency, urgency. No urinary retention. Musculoskeletal: No myalgias. Positive muscle weakness, positive for gait dysfunction, no frequent falls. positive for back pain. No neck pain. Integumentary: No wounds, no lesions. No rash or pruritus. No unusual bruising. No change in hair or nails. Neurologic: No aphasia. No facial droop. No change in mentation. No head injury. No headache. No paralysis. positive for facial paresthesia. Psychiatric: positive for depression, positive for anxiety. No mood swings. Endocrine: abnormal blood sugars. positive for weight change. PHYSICAL EXAMINATION: General: 79 year old female sitting up in bed no apparent distress. HEENT: Head is atraumatic, normocephalic, pupils were equal round reactive to light and recommendation, extraocular muscle movement were intact, sclera nonicteric, conjunctivae were pale, mucous membranes of the mouth are somewhat dry. Neck: Supple, no JVP, normal carotid upstroke bilaterally, no lymphadenopathy. Chest: Decreased breath sounds at the bases, few rhonchi, minimal expiratory wheezes, no chest wall tenderness, no intercostal retractions. Heart: First heart sound is normal, second heart sound is normal there is BIANCA 2/6 located at the left sternal border. Abdomen: Soft, obese nontender, nondistended, positive bowel sounds. Extremities: There is +1 edema no calf tenderness DP +2 bilaterally. Neurologic examination: Patient is awake alert and oriented X3, cranial nerves II-12 appear grossly intact, muscle power were 4 out of 5 in upper extremities and 4 out of 5 in bilateral lower extremities, deep tendon reflexes normal bilaterally. ASSESSMENT AND PLAN: 1. Hypervolemic hyponatremia with decreased solute intake. Continue fluid restriction 1000 cc every 24 hours., increase protein intake, patient is currently on Lasix 60 mg a push every 12 hours, sodium today is better 128. 2. Lower GI bleed likely related to hemorrhoidal bleed. Hemoglobin stable at 8.8, monitor the patient CBC over the next 24 hours, continue patient on Protonix 40 mg IV push every 24 hours transfuse for hemoglobin less than 7. EGD showed evidence of a single diverticulum as well as early Chesky ring and minimal gastritis rectal examination showed evidence of hemorrhoids without bleeding or thrombosis. 3. Recurrent UTI with sepsis with Enterococcus faecium . on Azactam 1 g piggyback every 8 hours due to limitation due to multiple patient allergies, 4. Hypertension and hypertensive cardiovascular disease. we will continue with Atenolol 50 mg po bid, Clonidine 0.2 mg 1 tabs po at bedtime, Losartan 100 mg po daily, Amlodipine 5 mg orally daily and we will continue with BP monitoring. 5. Mixed hyperlipidemia. we will continue with low cholesterol diet and exercise and weight loss, patient is not taking any statin at this time, and she refused PCSK9 inhibitor keep LDL-c 55-70 6. Diabetes Mellitus type 2. we will continue with Lantus 12 units at bedtime along with SSI and we will continue with Metformin 1000 mg po daily and Pioglitasone 30 mg po daily, BGM before each meal and at bedtime. 7. Obesity and obstructive sleep apnea and OHS. not able to tolerate CPAP. 8. Vitamin D deficiency. we will continue with vitamin d supplements 9. GERD with PUD. we will continue with Protonix 40 mg IVP daily. 10. Anxiety.we will continue with Xanax as needed. 11. Paroxysmal atrial fibrillation currently in sinus rhythm. Patient is not a candidate for anticoagulation because of recurrent GI bleed. Continue atenolol 50 mg orally twice every day monitor the patient symptoms very closely. 12. DVT Prophylaxis continue heparin 5000 units subcutaneously every 8 hours 13. GI Prophylaxis . we will continue with Pantoprazole 40 mg IV push daily. 14. Right-sided numbness post code stroke patient had a CT scan brain did not show evidence of acute abnormalities, patient refused to have a CT angiography of the neck and head neurology consultation, continue neurocheck, transfer the patient to [facility] when bed becomes available 15. Guarded prognosis. 16. Physical therapy evaluation. 17. Social work consultation for subacute rehabilitation Objective - Vital Signs Vital signs: Vital Signs Temp 97.4 F L 10/22/24 06:14 Pulse 60 10/22/24 06:29 Resp 20 10/22/24 06:14 BP 153/74 10/22/24 06:29 Pulse Ox 92 L 10/22/24 05:32 FiO2 Intake & Output 10/21/24 10/22/24 10/22/24 18:59 06:59 18:59 Intake Total 220 Output Total 2100 1375 Balance -1880 -1375 Intake: IV 100 Oral 120 Output: Urine 2100 1375 Uretheral (Harding) 1000 400 Other: Voiding Method Indwelling Catheter # Bowel Movements 1 - Labs CBC & Chem 7: 10/20/24 04:26 10/21/24 09:12 Labs: Abnormal Lab Results - Last 24 Hours (Table) 10/21/24 10/21/24 10/21/24 Range/Units 07:53 09:12 16:10 Sodium 128 L (137-145) mmol/L Chloride 90 L (98-107) mmol/L Carbon Dioxide 31 H (22-30) mmol/L BUN 25 H (7-17) mg/dL Glucose 173 H (74-99) mg/dL POC Glucose (mg/dL) 186 H 221 H (70-110) mg/dL 10/21/24 10/22/24 10/22/24 Range/Units 19:56 04:51 07:04 Sodium (137-145) mmol/L Chloride (98-107) mmol/L Carbon Dioxide (22-30) mmol/L BUN (7-17) mg/dL Glucose (74-99) mg/dL POC Glucose (mg/dL) 229 H 257 H 227 H (70-110) mg/dL Microbiology - Last 24 Hours (Table) 10/19/24 17:11 Urine Culture - Final Urine,Voided Enterococcus faecium
--- NOTE | 2024-10-22 16:19 | P.PN ---
Subjective Patient is seen for follow-up for hyponatremia, mostly hypervolemic and improved with diuresis. Serum sodium improved to 132 today. Possible episode of TIA this morning. Code stroke was called. Neurology has been consulted No complaints of weakness or numbness currently. Patient is alert and oriented Objective - Vital Signs Vital signs: Vital Signs Temp 97.8 F 10/22/24 15:44 Pulse 70 10/22/24 15:44 Resp 17 10/22/24 15:44 BP 128/72 10/22/24 15:44 Pulse Ox 97 10/22/24 15:44 FiO2 Intake & Output 10/21/24 10/22/24 10/22/24 18:59 06:59 18:59 Intake Total 220 660 Output Total 2100 3375 475 Balance -1880 -3375 185 Intake: IV 100 Oral 120 660 Output: Urine 2100 3375 475 Uretheral (Harding) 1000 400 Other: Voiding Method Indwelling Catheter Indwelling Catheter Indwelling Catheter # Bowel Movements 8 1 - Exam Patient is awake, comfortable, no acute distress. Examination of the heart S1 and S2 Examination of the lungs bilateral breath sounds are heard, occasional wheezing Abdomen is soft obese Examination of lower extremities shows edema 2+ bilaterally, improving [employer] exam grossly intact - Labs CBC & Chem 7: 10/22/24 06:22 10/22/24 06:22 Labs: Abnormal Lab Results - Last 24 Hours (Table) 10/21/24 10/22/24 10/22/24 Range/Units 19:56 04:51 06:22 WBC 11.29 H (4.50-10.00) X 10*3/uL RBC 3.31 L (4.10-5.20) X 10*6/uL Hgb 8.2 L (12.0-15.0) g/dL Hct 26.8 L (37.2-46.3) % MCH 24.8 L (27.0-32.0) pg MCHC 30.6 L (32.0-37.0) g/dL RDW 19.1 H (11.5-14.5) % Plt Count 467 H (140-440) X 10*3/uL Immature Gran # 0.08 H (0.00-0.04) X 10*3/uL Neutrophils # 8.52 H (1.80-7.70) X 10*3/uL Monocytes # 1.13 H (0.20-1.00) X 10*3/uL Sodium (135-145) mmol/L Chloride (96-109) mmol/L Anion Gap (4.00-12.00) mmol/L BUN/Creatinine Ratio (12.00-20.00) Ratio Glucose (70-110) mg/dL POC Glucose (mg/dL) 229 H 257 H (70-110) mg/dL AST (13-35) U/L Alkaline Phosphatase (41-126) U/L Albumin (3.8-4.9) g/dL Albumin/Globulin Ratio (1.60-3.17) Ratio 10/22/24 10/22/24 10/22/24 Range/Units 06:22 07:04 11:46 WBC (4.50-10.00) X 10*3/uL RBC (4.10-5.20) X 10*6/uL Hgb (12.0-15.0) g/dL Hct (37.2-46.3) % MCH (27.0-32.0) pg MCHC (32.0-37.0) g/dL RDW (11.5-14.5) % Plt Count (140-440) X 10*3/uL Immature Gran # (0.00-0.04) X 10*3/uL Neutrophils # (1.80-7.70) X 10*3/uL Monocytes # (0.20-1.00) X 10*3/uL Sodium 132 L (135-145) mmol/L Chloride 91 L (96-109) mmol/L Anion Gap 12.80 H (4.00-12.00) mmol/L BUN/Creatinine Ratio 28.86 H (12.00-20.00) Ratio Glucose 226 H (70-110) mg/dL POC Glucose (mg/dL) 227 H 222 H (70-110) mg/dL AST 43 H (13-35) U/L Alkaline Phosphatase 316 H (41-126) U/L Albumin 3.3 L (3.8-4.9) g/dL Albumin/Globulin Ratio 1.03 L (1.60-3.17) Ratio Microbiology - Last 24 Hours (Table) 10/19/24 17:11 Urine Culture - Final Urine,Voided Enterococcus faecium Assessment and Plan Assessment: 1. Hypervolemic hyponatremia, maintained on IV Lasix and improving. Sodium chloride tabs on hold due to hypervolemia 2. Possible bronchitis 3. Pyuria rule out UTI 4. Volume overload 5. Hypertension Plan: Continue with IV Lasix Continue off of sodium chloride tabs Continue with antibiotics
[2024-10-22 16:35] LABS: Glucose,Whole Blood 272 mg/dL (70-110)
[2024-10-22 20:00] LABS: Glucose,Whole Blood 394 mg/dL (70-110)
[2024-10-23 06:09] LABS: Glucose,Whole Blood 149 mg/dL (70-110)
--- NOTE | 2024-10-23 07:48 | P.CNNES ---
History of Present Illness Consult date: 10/22/24 Requesting physician: Latanya Sanchez Reason for Consult: Code stroke History of Present Illness: patient is a 79-year-old right-handed female who came to the hospital by ambulance on 10/19/2024 at 2:37 PM for upper respiratory infection. Patient states that she developed bronchial flu about 4 weeks ago with a lot of phlegm and was really bad for 3 weeks. She became more sedentary during this time of illness. She developed fluid overload. patient states that she went to the bathroom with her walker twice but after third time she got very weak with generalized weakness. Patient was admitted on 10/19/2024 and currently on aztreonam for UTI. patient says that she also was found to have high potassium, low sodium and magnesium.Patient also had a lower GI bleed for which general surgery has been consulted, and patient underwent upper GI and colonoscopy today. It revealed mild gastritis, mild Schatzki's ring, Zenker's diverticulum and external hemorrhoids. Patient had a stroke code activated at 6:15 AM capsule filler today when she was laying in the bed and felt numbness of the right hand that went to the right arm and right side of the jaw but did not involve the leg. Stroke team discuss case with Dr. Pringle, stroke neurologist, who recommended CT head and CTA, but patient declined CTA because of her history of ALLERGIES. Patient's NIH stroke scale was 1. She was not a candidate for TNK. Aspirin was recommended, but patient has declined because of her history of GI bleed. patient states that her symptoms lasted for about 30-45 minutes and went away on the right side. However the tingling came under her chin and now involves the left cheek only been she turns her head and she gets tingling in the left cheek. It appears more positional. She has no other symptoms at this time. 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 patient has history of diabetes since her mid to late 50s, hypertension, hyperlipidemia. Patient says that she tried statins and statins put her in chair because of losing muscle. She took statins only for 5 months. Patient states that he has history of hemorrhoids and as a result she notices some hissing sound before bowel movement. this is not a new issue, but is more frequent. Patient states she has history of transient atrial fibrillation in the past as well and she was placed on heparin she started bleeding. patient's blood test shows WBC 11.29, hemoglobin 8.2, platelets 467. Sodium 132 potassium 3.8, normal renal functions. AST is mildly elevated at 43, ALT normal 38. CT head showed no acute intracranial process or midline shift. I personally reviewed CT head, agree with the findings. Patient currently not on any antiplatelet medications or statins at home or in the hospital. Review of Systems all pertinent positive and negative review of systems depression HPI, otherwise unremarkable. Past Medical History Past Medical History: Asthma, Diabetes Mellitus, GERD/Reflux, Hyperlipidemia, Hypertension Additional Past Medical History / Comment(s): Zenker's diverticulum, hemrroids History of Any Multi-Drug Resistant Organisms: None Reported Past Surgical History: Cholecystectomy, Hysterectomy, Orthopedic Surgery, Tonsillectomy, Tubal Ligation Additional Past Surgical History / Comment(s): right knee. right cataract. Past Anesthesia/Blood Transfusion Reactions: No Reported Reaction Past Psychological History: Anxiety Smoking Status: Never smoker Past Alcohol Use History: None Reported Past Drug Use History: None Reported - Past Family History Mother Family Medical History: Cancer Additional Family Medical History / Comment(s): . Father Family Medical History: Cancer Additional Family Medical History / Comment(s): prostate Medications and Allergies Home Medications Medication Instructions Recorded Confirmed Type Pioglitazone [Actos] 15 mg PO DAILY@0900 03/11/16 10/19/24 History atenoloL [Tenormin] 50 mg PO BID@0900,209903/11/16 10/19/24 History metFORMIN HCL [Glucophage] 1,000 mg PO BID@1399,209903/11/16 10/19/24 History ALPRAZolam [Xanax] 0.125 mg PO BID@0900,209908/05/22 10/19/24 History Acetaminophen Tab [Tylenol] 500 mg PO TID@0900,1400,209912/11/23 10/19/24 History Losartan Potassium 100 mg PO DAILY@89912/11/23 10/19/24 History amLODIPine [Norvasc] 5 mg PO DAILY@00 12/11/23 10/19/24 History Furosemide [Lasix] 20 mg PO BID@0900,209906/20/24 10/19/24 History Furosemide [Lasix] 40 mg PO BID@0900,2100 06/20/24 10/19/24 History Insulin Glargine,Hum.rec.anlog 7 - 17 units SQ HS 08/27/24 10/19/24 History [Lantus Solostar Pen] Loperamide [Imodium] 2 mg PO QID PRN 10/19/24 10/19/24 History Magnesium 250 mg PO HS 10/19/24 10/19/24 History Sodium Chloride Tab 1 gm PO BID 10/19/24 10/19/24 History cloNIDine HCL [Catapres] 0.2 mg PO HS 10/19/24 10/19/24 History Allergies Allergy/AdvReac Type Severity Reaction Status Date / Time cephalexin Allergy Unknown Verified 10/19/24 18:15 ciprofloxacin [From Cipro] Allergy Anaphylaxis Verified 10/19/24 18:15 codeine Allergy Chest Pain Verified 10/19/24 18:15 diclofenac Allergy Anaphylaxis Verified 10/19/24 18:15 difluprednate [From Durezol] Allergy Anaphylaxis Verified 10/19/24 18:15 dog dander Allergy Unknown Verified 10/19/24 18:15 doxycycline [From Vibramycin] Allergy Unknown Verified 10/19/24 18:15 epinephrine Allergy Unknown Verified 10/19/24 18:15 erythromycin base Allergy Unknown Verified 10/19/24 18:15 Fish Containing Products Allergy Anaphylaxis Verified 10/19/24 18:15 iodine Allergy Unknown Verified 10/19/24 18:15 latex Allergy Anaphylaxis Verified 10/19/24 18:15 metronidazole [From Flagyl] Allergy Anaphylaxis Verified 10/19/24 18:15 mold Allergy Unknown Verified 10/19/24 18:15 nepafenac Allergy Anaphylaxis Verified 10/19/24 18:15 ofloxacin [From Floxin] Allergy Anaphylaxis Verified 10/19/24 18:15 Penicillins Allergy Unknown Verified 10/19/24 18:15 Childhood shellfish derived [Shellfish] Allergy Anaphylaxis Verified 10/19/24 18:15 strawberry Allergy Burning & Verified 10/19/24 18:15 swelling Thiazides Allergy Unknown Verified 10/19/24 18:15 clonidine AdvReac Dyspnea Verified 10/19/24 18:15 bandages Allergy Unknown Uncoded 06/20/24 19:44 dust Allergy Unknown Uncoded 06/20/24 19:44 seafood Allergy Anaphylaxis Uncoded 06/20/24 19:44 Physical Examination - Vital Signs Vital Signs: Vital Signs Temp Pulse Pulse Resp BP BP Pulse Ox 10/22/24 11:54 53 L 17 152/69 95 10/22/24 09:00 97.5 F L 64 18 171/68 91 L 10/22/24 06:29 60 153/74 10/22/24 06:14 97.4 F L 57 L 20 136/68 10/22/24 05:32 98.3 F 59 L 16 153/69 92 L 10/22/24 01:20 98.2 F 58 L 18 152/60 95 10/21/24 18:59 97.5 F L 56 L 16 158/63 94 L 10/21/24 16:26 58 L 132/60 95 10/21/24 16:10 58 L 17 128/72 91 L 10/21/24 12:51 97.9 F 57 L 18 149/63 93 L Intake and Output 10/21/24 10/22/24 10/22/24 22:59 06:59 14:59 Intake Total 220 120 Output Total 1100 3375 375 Balance -880 -3375 -255 Intake: IV 100 Oral 120 120 Output: Urine 1100 3375 375 Uretheral (Harding) 400 Other: Voiding Method Indwelling Catheter Indwelling Catheter # Bowel Movements 8 1 Patient is an elderly female, very pleasant, in no acute distress. Patient is alert awake oriented to time place and person. Speech and language functions are normal. Patient can name and repeat very well. No aphasia or dysarthria. Attention, concentration and fund of knowledge is adequate. On cranial nerve examination, pupils are equal, round and reacting to light, visual menon are full on confrontation, with no neglect on double simultaneous stimulation. Extraocular muscles are intact with no nystagmus. Face is symmetric, tongue protrudes to the midline. Palatal elevation and sensation normal, hearing and shoulder shrug normal, facial sensation normal. On muscle strength testing, there is no pronator drift and the strength is normal in arms and legs distally and proximally. Deep tendon reflexes are symmetric 1+ and plantars downgoing. Sensory to touch is equal with no neglect on double simultaneous stimulation. Cerebellar function showed no ataxia for [id number] testing. No dysdiadochokinesia. No ataxia for [id number] testing on either side. Tone and bulk of muscles normal. Gait deferred.. On general examination, there is no carotid bruit or murmur, S1-S2 audible. Chest is clear on consultation. Abdomen is soft nontender. No organomegaly, bowel sounds present. Peripheral pulses are present. patient has moderate peripheral edema, and has Serafin wrap around her both feet and ankles. Results - Laboratory Findings CBC and BMP: 10/22/24 06:22 10/22/24 06:22 Abnormal Lab Findings: Abnormal Labs 10/19/24 10/19/24 10/19/24 15:37 15:37 17:11 WBC 11.13 H RBC 3.59 L Hgb 8.8 L Hct 28.1 L MCV 78.3 L MCH 24.5 L MCHC 31.3 L RDW Plt Count 573 H Immature Gran # 0.11 H Neutrophils # 8.26 H Monocytes # Sodium 123 L Potassium 5.7 H Chloride 85 L Carbon Dioxide Anion Gap BUN 35 H BUN/Creatinine Ratio Glucose 199 H POC Glucose (mg/dL) Phosphorus Magnesium 1.4 L AST 66 H ALT 46 H Alkaline Phosphatase 346 H Albumin Albumin/Globulin Ratio Urine Appearance Cloudy H Ur Leukocyte Esterase Large H Urine RBC 6 H Urine WBC 167 H Urine WBC Clumps Moderate H Urine Bacteria Many H Urine Mucus Rare H Ur Random Sodium 10/20/24 10/20/24 10/20/24 00:05 02:19 04:26 WBC RBC Hgb Hct MCV MCH MCHC RDW Plt Count Immature Gran # Neutrophils # Monocytes # Sodium 122 L Potassium 5.6 H Chloride 85 L Carbon Dioxide Anion Gap BUN 31 H BUN/Creatinine Ratio Glucose 257 H POC Glucose (mg/dL) 432 H 348 H Phosphorus 4.7 H Magnesium 1.4 L AST 48 H ALT Alkaline Phosphatase 298 H Albumin 3.4 L Albumin/Globulin Ratio Urine Appearance Ur Leukocyte Esterase Urine RBC Urine WBC Urine WBC Clumps Urine Bacteria Urine Mucus Ur Random Sodium 10/20/24 10/20/24 10/20/24 04:26 05:00 07:42 WBC 15.47 H RBC 3.19 L Hgb 7.7 L Hct 25.7 L MCV MCH 24.1 L MCHC 30.0 L RDW 18.9 H Plt Count 499 H Immature Gran # 0.12 H Neutrophils # 11.78 H Monocytes # 1.21 H Sodium Potassium Chloride Carbon Dioxide Anion Gap BUN BUN/Creatinine Ratio Glucose POC Glucose (mg/dL) 256 H Phosphorus Magnesium AST ALT Alkaline Phosphatase Albumin Albumin/Globulin Ratio Urine Appearance Ur Leukocyte Esterase Urine RBC Urine WBC Urine WBC Clumps Urine Bacteria Urine Mucus Ur Random Sodium <20 L 10/20/24 10/20/24 10/20/24 12:49 16:02 17:22 WBC RBC Hgb Hct MCV MCH MCHC RDW Plt Count Immature Gran # Neutrophils # Monocytes # Sodium 123 L Potassium Chloride Carbon Dioxide Anion Gap BUN BUN/Creatinine Ratio Glucose POC Glucose (mg/dL) 260 H 308 H Phosphorus Magnesium AST ALT Alkaline Phosphatase Albumin Albumin/Globulin Ratio Urine Appearance Ur Leukocyte Esterase Urine RBC Urine WBC Urine WBC Clumps Urine Bacteria Urine Mucus Ur Random Sodium 10/20/24 10/21/24 10/21/24 20:28 07:53 09:12 WBC RBC Hgb Hct MCV MCH MCHC RDW Plt Count Immature Gran # Neutrophils # Monocytes # Sodium 128 L Potassium Chloride 90 L Carbon Dioxide 31 H Anion Gap BUN 25 H BUN/Creatinine Ratio Glucose 173 H POC Glucose (mg/dL) 284 H 186 H Phosphorus Magnesium AST ALT Alkaline Phosphatase Albumin Albumin/Globulin Ratio Urine Appearance Ur Leukocyte Esterase Urine RBC Urine WBC Urine WBC Clumps Urine Bacteria Urine Mucus Ur Random Sodium 10/21/24 10/21/24 10/22/24 16:10 19:56 04:51 WBC RBC Hgb Hct MCV MCH MCHC RDW Plt Count Immature Gran # Neutrophils # Monocytes # Sodium Potassium Chloride Carbon Dioxide Anion Gap BUN BUN/Creatinine Ratio Glucose POC Glucose (mg/dL) 221 H 229 H 257 H Phosphorus Magnesium AST ALT Alkaline Phosphatase Albumin Albumin/Globulin Ratio Urine Appearance Ur Leukocyte Esterase Urine RBC Urine WBC Urine WBC Clumps Urine Bacteria Urine Mucus Ur Random Sodium 10/22/24 10/22/24 10/22/24 06:22 06:22 07:04 WBC 11.29 H RBC 3.31 L Hgb 8.2 L Hct 26.8 L MCV MCH 24.8 L MCHC 30.6 L RDW 19.1 H Plt Count 467 H Immature Gran # 0.08 H Neutrophils # 8.52 H Monocytes # 1.13 H Sodium 132 L Potassium Chloride 91 L Carbon Dioxide Anion Gap 12.80 H BUN BUN/Creatinine Ratio 28.86 H Glucose 226 H POC Glucose (mg/dL) 227 H Phosphorus Magnesium AST 43 H ALT Alkaline Phosphatase 316 H Albumin 3.3 L Albumin/Globulin Ratio 1.03 L Urine Appearance Ur Leukocyte Esterase Urine RBC Urine WBC Urine WBC Clumps Urine Bacteria Urine Mucus Ur Random Sodium 10/22/24 11:46 WBC RBC Hgb Hct MCV MCH MCHC RDW Plt Count Immature Gran # Neutrophils # Monocytes # Sodium Potassium Chloride Carbon Dioxide Anion Gap BUN BUN/Creatinine Ratio Glucose POC Glucose (mg/dL) 222 H Phosphorus Magnesium AST ALT Alkaline Phosphatase Albumin Albumin/Globulin Ratio Urine Appearance Ur Leukocyte Esterase Urine RBC Urine WBC Urine WBC Clumps Urine Bacteria Urine Mucus Ur Random Sodium Assessment and Plan Assessment: * Possible TIA manifesting with transient tingling and numbness in the right hand, arm and right cheek. Symptoms resolved in 30-45 minutes. Current neurological examination is normal and her NIH stroke scale is 0. Patient was not a candidate for TNK. * Now patient complaining of some intermittent paresthesias left cheek only when turns her head, appears more positional. Does not appear ischemia. * diabetes, not well controlled * Hypertension * Hyperlipidemia * External hemorrhoids * Anemia * Hypervolemia * Hyponatremia * Recent bronchitis * Recent UTI * Obesity Plan: * Patient will undergo workup for TIA. * 2-D echo with bubble study to rule out PFO * Carotid Doppler, rule out stenosis * Fasting a.m. lipid panel the cholesterol 260, LDL 149, HDL 86 and triglycerides 119. Patient declining statins. * Hemoglobin A1c * Optimize control of blood pressure. * Recommend starting aspirin because of multiple vascular risk factors, but patient completely declined. She understands all risks of not taking antiplatelet medication including recurrent strokes, which could be major. * Neuro checks every shift * Telemetry monitoring rule out any arrhythmia * PT, OT, speech is completely normal. * DVT prophylaxis: Recommend Heparin 5000 units subcu every 8 hours, however patient is declining most treatments. * Neurology will continue to follow. Thank you for the consult. Time with Patient: Greater than 30
[2024-10-23 11:50] LABS: Glucose,Whole Blood 256 mg/dL (70-110)
[2024-10-23] MEDS ORDERED: MD COMMUNICATION TO PHARMACY 1 EACH MISC PO PRN (12:03)
--- NOTE | 2024-10-23 12:08 | P.PN ---
Subjective Progress Note Date: 10/23/24 Patient is seen for follow-up for hyponatremia, mostly hypervolemic and improved with diuresis. Serum sodium improved to 132 yesterday. Patient is awake, comfortable, no acute distress. Examination of the heart S1 and S2 Examination of the lungs bilateral breath sounds are heard, occasional wheezing Abdomen is soft obese Examination of lower extremities shows edema 2+ bilaterally, improving Objective - Vital Signs Vital signs: Vital Signs Temp 97.8 F 10/23/24 11:44 Pulse 69 10/23/24 11:44 Resp 18 10/23/24 11:44 BP 125/68 10/23/24 11:44 Pulse Ox 94 L 10/23/24 11:44 FiO2 Intake & Output 10/22/24 10/23/24 10/23/24 18:59 06:59 18:59 Intake Total 660 240 Output Total 475 400 Balance 185 -160 Weight 109.5 kg Intake: Oral 660 240 Output: Urine 475 400 Other: Voiding Method Indwelling Catheter Indwelling Catheter Indwelling Catheter # Bowel Movements 1 - Labs CBC & Chem 7: 10/22/24 06:22 10/22/24 06:22 Labs: Abnormal Lab Results - Last 24 Hours (Table) 10/22/24 10/22/24 10/23/24 Range/Units 16:34 19:59 06:07 POC Glucose (mg/dL) 272 H 394 H 149 H (70-110) mg/dL 10/23/24 Range/Units 11:46 POC Glucose (mg/dL) 256 H (70-110) mg/dL Assessment and Plan Assessment: 1. Hypervolemic hyponatremia, maintained on IV Lasix and improving. Sodium chloride tabs on hold due to hypervolemia 2. Possible bronchitis 3. Pyuria rule out UTI 4. Volume overload 5. Hypertension Plan: Continue with IV Lasix Continue off of sodium chloride tabs Continue with antibiotics
--- NOTE | 2024-10-23 12:27 | P.PN ---
Subjective Progress Note Date: 10/23/24 Principal diagnosis: GI bleed, dysphagia Patient slightly confused today. Denies abdominal pain. Denies bleeding. Tolerating regular diet. Objective - Vital Signs Vital signs: Vital Signs Temp 97.8 F 10/23/24 11:44 Pulse 69 10/23/24 11:44 Resp 18 10/23/24 11:44 BP 125/68 10/23/24 11:44 Pulse Ox 94 L 10/23/24 11:44 FiO2 Intake & Output 10/22/24 10/23/24 10/23/24 18:59 06:59 18:59 Intake Total 660 240 Output Total 475 400 Balance 185 -160 Weight 109.5 kg Intake: Oral 660 240 Output: Urine 475 400 Other: Voiding Method Indwelling Catheter Indwelling Catheter Indwelling Catheter # Bowel Movements 1 - Exam Abdomen: Soft, nontender, nondistended - Labs CBC & Chem 7: 10/22/24 06:22 10/22/24 06:22 Labs: Abnormal Lab Results - Last 24 Hours (Table) 10/22/24 10/22/24 10/23/24 Range/Units 16:34 19:59 06:07 POC Glucose (mg/dL) 272 H 394 H 149 H (70-110) mg/dL 10/23/24 Range/Units 11:46 POC Glucose (mg/dL) 256 H (70-110) mg/dL Assessment and Plan (1) Dysphagia Narrative/Plan: 7-year-old female with dysphagia and rectal bleeding. Rectal bleeding thought to be likely related to hemorrhoids however patient unable to complete co lonoscopy because of recent acute neurologic event. Hemoglobin stable yesterday. No further bleeding per patient. Await conclusion of neurologic workup. No plans for immediate endoscopy. Current Visit: Yes Status: Acute Code(s): R13.10 - DYSPHAGIA, UNSPECIFIED SNOMED Code(s): 12092663
--- NOTE | 2024-10-23 12:53 | P.PN ---
Subjective Progress Note Date: 10/23/24 HISTORY OF PRESENT ILLNESS: This is a 79 year old female with a previous medical history signif icant for hypertension and hypertensive cardiovascular disease, hyperlipidemia, diabetes mellitus type 2, and diabetic polyneuropathy, GERD with duodenal ulcer, and obesity with obstructive sleep apnea, and obesity hypoventilation syndrome, chronic diastolic heart failure, patient was last hospitalized at [facility] 06/20/2024 after she was admitted for 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 and d ecreased solute intake, initially she was treated with IV diuretics, which led to hyponatremia that required treatment with hypertonic 3% saline along with tolvaptan and urea until her sodium went back to normal, patient was rehospitalized at [facility] August 13, 2024 for what appears to be asthma exacerbation as well as significant hyponatremia as well, and she was treated and she was sent home, she was supposed to see me in the office yesterday however she contacted my office stating that she is having rectal bleeding, her home care nurse stated that she is having hard time getting out of the toilet because of the bleeding, at the same time she is extremely weak beside her sodium was extremely low at the same time therefore the patient was directed to go to the emergency department, she was found to have an sodium of 123, she was also found to have urinary tract infection for which she was started on Azactam 1 g piggyback every 24 hours, as far as every GI bleed the patient refuses a rectal examination at this point in time, and she claimed that this is coming from her hemorrhoids her hemoglobin is around 8.8, her potassium was slightly elevated, because of that the patient was started on IV Protonix 40 mg IV push every 24 hours, along with Azactam 1 g piggyback every 8 hours, she was admitted to the hospital on fluid restriction, discontinued IV fluid, started on Lasix 60 mg IV push every 12 hours along with sodium chloride tablet 1 g orally twice every day serum osmolality, urine osmolarity, urine sodium as well as urine spot for protein and creatinine and uric acid and cortisol level was obtained. 10/21: Patient is sitting up in bed in no apparent distress, her sodium is up to 128, she continues to have swelling in both lower extremities, she was taken off sodium chloride tablets, continue Lasix 60 mg IV push every 12 hours, continue Protonix 40 mg IV push every 24 hours, she is scheduled to go for EGD with Dr. Wells, she will need to have a colonoscopy hopefully the next 24 hours, hemoglobin is down to 7.7, she does not appear to be hypertensive at this time, we will continue to follow-up with the patient very closely, she continues to tolerate her treatment very well. Continue fluid restriction to 1000 cc every 24 hours, her serum asthma level is normal at this time, we will follow-up with the patient very closely her prognosis very guarded, she her daughter was at the bedside she was updated about her current condition. 10/22: Patient developed to have a right-sided numbness a code stroke was called on the patient, patient refused to have an IV contrast, she did have a CT scan brain did not show evidence of acute abnormalities, the plan is to transfer the patient to [facility]. awaiting bed availability, neurology consultation is on board, will continue to follow-up with the patient very closely, patient underwent EGD yesterday that showed evidence of Zenker diverticulum, as well as early Chesky ring and minimal gastritis, rectal examination was performed after obtaining consent from the patient under anesthesia and that showed visible hemorrhoids without evidence of thrombosis or bleeding at that time, patient was supposed to go for colonoscopy but we will hold off that until the patient passes through the code stroke. 10/23: Patient is sitting up in bed in no apparent distress, she is feeling a lot better today, she has no chest pain, or shortness of breath, she denies any abdominal pain, she underwent ultrasound the carotid did not show evidence of any hemodynamically significant stenosis, she was seen in consultation by ne urology, she is not going for any colonoscopy at this point in time, she does not have any blood in her stool at this point in time, continue current treatment plan, follow-up with the patient very closely, the plan subacute rehabilitation hopefully Friday meanwhile continue current treatment plan, I will increase her Lantus to 14 units at bedtime, add 4 units of NovoLog plus the sliding scale insulin to make her sugar better, follow-up with the patient very closely, physical therapy evaluation, likely the patient will require to go to subacute rehabilitation on Friday. REVIEW OF SYSTEMS: Constitutional: No documented fever, no chills, no night sweats. No weight change. Positive for weakness, fatigue or lethargy. No daytime sleepiness. HEENT: No headache. No blurred vision or double vision, no loss of vision. No loss of Hearing, no ringing in the ears, no dizziness. No nasal drainage or congestion. No epistaxis. No sore throat. Lungs: Positive for shortness of breath, occasional cough, no sputum production. No wheezing. Reports dyspnea with activity. Cardiovascular: No chest pain, positive for lower extremity edema. Positive for palpitations. negative for paroxysmal nocturnal dyspnea. Negative for orthopnea. No lightheadedness or dizziness. No syncopal episodes. Abdominal: Reports abdominal pain. No nausea, vomiting. No diarrhea. No constipation. Positive for bloody but no tarry stools reports loss of appetite. Genitourinary: Positive for dysuria, increased frequency, urgency. No urinary retention. Musculoskeletal: No myalgias. Positive muscle weakness, positive for gait dysfunction, no frequent falls. positive for back pain. No neck pain. Integumentary: No wounds, no lesions. No rash or pruritus. No unusual bruising. No change in hair or nails. Neurologic: No aphasia. No facial droop. No change in mentation. No head injury. No headache. No paralysis. positive for facial paresthesia. Psychiatric: positive for depression, positive for anxiety. No mood swings. Endocrine: abnormal blood sugars. positive for weight change. PHYSICAL EXAMINATION: General: 79 year old female sitting up in bed no apparent distress. HEENT: Head is atraumatic, normocephalic, pupils were equal round reactive to light and recommendation, extraocular muscle movement were intact, sclera nonicteric, conjunctivae were pale, mucous membranes of the mouth are somewhat dry. Neck: Supple, no JVP, normal carotid upstroke bilaterally, no lymphadenopathy. Chest: Decreased breath sounds at the bases, few rhonchi, minimal expiratory wheezes, no chest wall tenderness, no intercostal retractions. Heart: First heart sound is normal, second heart sound is normal there is BIANCA 2/6 located at the left sternal border. Abdomen: Soft, obese nontender, nondistended, positive bowel sounds. Extremities: There is +1 edema no calf tenderness DP +2 bilaterally. Neurologic examination: Patient is awake alert and oriented X3, cranial nerves II-12 appear grossly intact, muscle power were 4 out of 5 in upper extremities and 4 out of 5 in bilateral lower extremities, deep tendon reflexes normal bilaterally. ASSESSMENT AND PLAN: 1. Hypervolemic hyponatremia with decreased solute intake. Continue fluid restriction 1000 cc every 24 hours., increase protein intake, patient is currently on Lasix 60 mg a push every 12 hours, sodium yesterday was 132 2. Lower GI bleed likely related to hemorrhoidal bleed. Hemoglobin stable at 8.8, monitor the patient CBC over the next 24 hours, continue patient on Protonix 40 mg IV push every 24 hours transfuse for hemoglobin less than 7. EGD showed evidence of a single diverticulum as well as early Chesky ring and mini mal gastritis rectal examination showed evidence of hemorrhoids without bleeding or thrombosis. This point in time 3. Recurrent UTI with sepsis with Enterococcus faecium . on Azactam 1 g piggyback every 8 hours due to limitation due to multiple patient allergies, 4. Hypertension and hypertensive cardiovascular disease. we will continue with Atenolol 50 mg po bid, Clonidine 0.2 mg 1 tabs po at bedtime, Losartan 100 mg po daily, Amlodipine 5 mg orally daily and we will continue with BP monitoring. 5. Mixed hyperlipidemia. we will continue with low cholesterol diet and exercise and weight loss, patient is not taking any statin at this time, and she refused PCSK9 inhibitor keep LDL-c 55-70 6. Diabetes Mellitus type 2. we will continue with Lantus 14 units at bedtime along with SSI and we will add NovoLog 4 units before each meal 3 times every day, continue with Metformin 1000 mg po daily and Pioglitasone 30 mg po daily, BGM before each meal and at bedtime. 7. Obesity and obstructive sleep apnea and OHS. not able to tolerate CPAP. 8. Vitamin D deficiency. we will continue with vitamin d supplements 9. GERD with PUD. we will continue with Protonix 40 mg IVP daily. 10. Anxiety.we will continue with Xanax as needed. 11. Paroxysmal atrial fibrillation currently in sinus rhythm. Patient is not a candidate for anticoagulation because of recurrent GI bleed. Continue atenolol 50 mg orally twice every day monitor the patient symptoms very closely. 12. DVT Prophylaxis continue heparin 5000 units subcutaneously every 8 hours 13. GI Prophylaxis . we will continue with Pantoprazole 40 mg IV push daily. 14. Right-sided numbness post code stroke patient had a CT scan brain did not show evidence of acute abnormalities, patient refused to have a CT angiography of the neck and head neurology consultation on the carotid did not show evidence of acute abnormalities, echocardiogram showed normal LV function, with severe pulmonary hypertension 15. Guarded prognosis. 16. Physical therapy evaluation. 17. Social work consultation for subacute rehabilitation likely [facility] on Friday Objective - Vital Signs Vital signs: Vital Signs Temp 97.8 F 10/23/24 11:44 Pulse 69 10/23/24 11:44 Resp 18 10/23/24 11:44 BP 125/68 10/23/24 11:44 Pulse Ox 94 L 10/23/24 11:44 FiO2 Intake & Output 10/22/24 10/23/24 10/23/24 18:59 06:59 18:59 Intake Total 660 240 Output Total 475 400 Balance 185 -160 Weight 109.5 kg Intake: Oral 660 240 Output: Urine 475 400 Other: Voiding Method Indwelling Catheter Indwelling Catheter Indwelling Catheter # Bowel Movements 1 - Labs CBC & Chem 7: 10/22/24 06:22 10/22/24 06:22 Labs: Abnormal Lab Results - Last 24 Hours (Table) 10/22/24 10/22/24 10/23/24 Range/Units 16:34 19:59 06:07 POC Glucose (mg/dL) 272 H 394 H 149 H (70-110) mg/dL 10/23/24 Range/Units 11:46 POC Glucose (mg/dL) 256 H (70-110) mg/dL
[2024-10-23 16:37] LABS: Glucose,Whole Blood 291 mg/dL (70-110)
[2024-10-23] MEDS: INSULIN LISPRO (HumaLOG) 100 UNIT/ML 10 mL VL SQ SCH (18:29)
[2024-10-23 20:01] LABS: Glucose,Whole Blood 311 mg/dL (70-110)
[2024-10-23] MEDS: INSULIN GLARGINE (LANTUS) 100 UNIT/ML SYR SQ SCH (20:14)
[2024-10-23] MEDS: CLONIDINE HCL 0.1 MG PO SCH (22:00)
[2024-10-23] MEDS: guaiFENesin-DM 100-10MG/5ML 10 ML CUP PO PRN (23:49)
[2024-10-24 06:19] LABS: Glucose,Whole Blood 173 mg/dL (70-110)
[2024-10-24 07:37] LABS: Basophils # (A) 0.12 10*3/uL (0.00-0.10); Basophils % (A) 1.0 %; Eosinophils # (A) 0.45 10*3/uL (0.04-0.35); Eosinophils % (A) 3.9 %; HCT 24.6 % (37.2-46.3); HGB 7.7 g/dL (12.0-15.0); Lymphocytes # (A) 2.79 10*3/uL (0.90-5.00); Lymphocytes % (A) 24.3 %; MCH 24.9 pg (27.0-32.0); MCHC 31.3 g/dL (32.0-37.0); MCV 79.6 fL (80.0-97.0); Monocytes # (A) 1.45 10*3/uL (0.20-1.00); Monocytes % (A) 12.7 %; Neutrophils # (A) 6.53 10*3/uL (1.80-7.70); Neutrophils % (A) 57.1 %; Platelet Count 467 10*3/uL (140-440); RBC 3.09 10*6/uL (4.10-5.20); RDW 18.3 % (11.5-14.5); WBC 11.46 10*3/uL (4.50-10.00)
[2024-10-24 08:30] LABS: ALT 28 U/L (4-34); AST 38 U/L (14-36); African American GFR (CKD) 47 (>60 ml/min/1.73 sqM); Albumin 3.2 g/dL (3.5-5.0); Alkaline Phosphatase 257 U/L (38-126); Anion Gap 10 mmol/L; Blood Urea Nitrogen 35 mg/dL (7-17); Calcium 9.2 mg/dL (8.4-10.2); Carbon Dioxide 26 mmol/L (22-30); Chloride 91 mmol/L (98-107); Glucose 121 mg/dL (74-99); Non-African American GFR(CKD) 41 (>60 ml/min/1.73 sqM); Potassium 4.3 mmol/L (3.5-5.1); Sodium 127 mmol/L (137-145); Total Protein 6.3 g/dL (6.3-8.2)
--- NOTE | 2024-10-24 10:10 | P.PN ---
Subjective Progress Note Date: 10/24/24 Principal diagnosis: GI bleed, dysphagia Patient feels well today. No new complaints. Denies rectal bleeding. Tolerating diet. No significant dysphagia issues. Objective - Vital Signs Vital signs: Vital Signs Temp 97.7 F 10/24/24 08:10 Pulse 65 10/24/24 08:10 Resp 18 10/24/24 08:10 BP 149/66 10/24/24 08:10 Pulse Ox 95 10/24/24 08:10 FiO2 Intake & Output 10/23/24 10/24/24 10/24/24 18:59 06:59 18:59 Intake Total 960 540 480 Output Total 200 400 Balance 760 140 480 Weight 110.9 kg Intake: Oral 960 540 480 Output: Urine 200 400 Other: Voiding Method Indwelling Catheter Indwelling Catheter # Bowel Movements 1 - Exam Abdomen: Soft, nontender, nondistended - Labs CBC & Chem 7: 10/24/24 06:49 10/24/24 06:49 Labs: Abnormal Lab Results - Last 24 Hours (Table) 10/22/24 10/23/24 10/23/24 Range/Units 06:42 11:46 16:35 WBC (4.50-10.00) 10*3/uL RBC (4.10-5.20) 10*6/uL Hgb (12.0-15.0) g/dL Hct (37.2-46.3) % MCV (80.0-97.0) fL MCH (27.0-32.0) pg MCHC (32.0-37.0) g/dL Plt Count (140-440) 10*3/uL Immature Gran # (0.00-0.04) 10*3/uL Monocytes # (0.20-1.00) 10*3/uL Eosinophils # (0.04-0.35) 10*3/uL Basophils # (0.00-0.10) 10*3/uL Sodium (137-145) mmol/L Chloride (98-107) mmol/L BUN (7-17) mg/dL Creatinine (0.52-1.04) mg/dL Glucose (74-99) mg/dL POC Glucose (mg/dL) 256 H 291 H (70-110) mg/dL Hemoglobin A1c 8.7 H (<=6.0) % AST (14-36) U/L Alkaline Phosphatase (38-126) U/L Albumin (3.5-5.0) g/dL 10/23/24 10/24/24 10/24/24 Range/Units 20:00 06:17 06:49 WBC 11.46 H (4.50-10.00) 10*3/uL RBC 3.09 L (4.10-5.20) 10*6/uL Hgb 7.7 L (12.0-15.0) g/dL Hct 24.6 L (37.2-46.3) % MCV 79.6 L (80.0-97.0) fL MCH 24.9 L (27.0-32.0) pg MCHC 31.3 L (32.0-37.0) g/dL Plt Count 467 H (140-440) 10*3/uL Immature Gran # 0.12 H (0.00-0.04) 10*3/uL Monocytes # 1.45 H (0.20-1.00) 10*3/uL Eosinophils # 0.45 H (0.04-0.35) 10*3/uL Basophils # 0.12 H (0.00-0.10) 10*3/uL Sodium (137-145) mmol/L Chloride (98-107) mmol/L BUN (7-17) mg/dL Creatinine (0.52-1.04) mg/dL Glucose (74-99) mg/dL POC Glucose (mg/dL) 311 H 173 H (70-110) mg/dL Hemoglobin A1c (<=6.0) % AST (14-36) U/L Alkaline Phosphatase (38-126) U/L Albumin (3.5-5.0) g/dL 10/24/24 Range/Units 06:49 WBC (4.50-10.00) 10*3/uL RBC (4.10-5.20) 10*6/uL Hgb (12.0-15.0) g/dL Hct (37.2-46.3) % MCV (80.0-97.0) fL MCH (27.0-32.0) pg MCHC (32.0-37.0) g/dL Plt Count (140-440) 10*3/uL Immature Gran # (0.00-0.04) 10*3/uL Monocytes # (0.20-1.00) 10*3/uL Eosinophils # (0.04-0.35) 10*3/uL Basophils # (0.00-0.10) 10*3/uL Sodium 127 L (137-145) mmol/L Chloride 91 L (98-107) mmol/L BUN 35 H (7-17) mg/dL Creatinine 1.25 H (0.52-1.04) mg/dL Glucose 121 H (74-99) mg/dL POC Glucose (mg/dL) (70-110) mg/dL Hemoglobin A1c (<=6.0) % AST 38 H (14-36) U/L Alkaline Phosphatase 257 H (38-126) U/L Albumin 3.2 L (3.5-5.0) g/dL Assessment and Plan (1) Dysphagia Narrative/Plan: Patient is stable from a surgical point of view. Continue regular diet as tolerated. No further bleeding noted. Hemoglobin today 7.7 minimally decreased from yesterday. Will sign off at this point please reconsult if needed. Current Visit: Yes Status: Acute Code(s): R13.10 - DYSPHAGIA, UNSPECIFIED SNOMED Code(s): 66427635
--- NOTE | 2024-10-24 10:57 | XR ---
EXAMINATION TYPE: XR chest 1V DATE OF EXAM: 10/24/2024 COMPARISON: 10/19/2024 CLINICAL INDICATION: Female, 79 years old with history of CRYSTAL; TECHNIQUE: Single frontal view of the chest is obtained. FINDINGS: There is mild cardiomegaly and mild diffuse interstitial opacity. There is no pneumothorax or large p leural effusion. There is no airspace consolidation. The osseous structures are intact. IMPRESSION: Findings most consistent with mild CHF. [facility], , 10/24/2024 10:54 AM
--- NOTE | 2024-10-24 11:08 | P.PN ---
Subjective Progress Note Date: 10/24/24 HISTORY OF PRESENT ILLNESS: This is a 79 year old female with a previous medical history signif icant for hypertension and hypertensive cardiovascular disease, hyperlipidemia, diabetes mellitus type 2, and diabetic polyneuropathy, GERD with duodenal ulcer, and obesity with obstructive sleep apnea, and obesity hypoventilation syndrome, chronic diastolic heart failure, patient was last hospitalized at [facility] 06/20/2024 after she was admitted for 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 and d ecreased solute intake, initially she was treated with IV diuretics, which led to hyponatremia that required treatment with hypertonic 3% saline along with tolvaptan and urea until her sodium went back to normal, patient was rehospitalized at [facility] August 13, 2024 for what appears to be asthma exacerbation as well as significant hyponatremia as well, and she was treated and she was sent home, she was supposed to see me in the office yesterday however she contacted my office stating that she is having rectal bleeding, her home care nurse stated that she is having hard time getting out of the toilet because of the bleeding, at the same time she is extremely weak beside her sodium was extremely low at the same time therefore the patient was directed to go to the emergency department, she was found to have an sodium of 123, she was also found to have urinary tract infection for which she was started on Azactam 1 g piggyback every 24 hours, as far as every GI bleed the patient refuses a rectal examination at this point in time, and she claimed that this is coming from her hemorrhoids her hemoglobin is around 8.8, her potassium was slightly elevated, because of that the patient was started on IV Protonix 40 mg IV push every 24 hours, along with Azactam 1 g piggyback every 8 hours, she was admitted to the hospital on fluid restriction, discontinued IV fluid, started on Lasix 60 mg IV push every 12 hours along with sodium chloride tablet 1 g orally twice every day serum osmolality, urine osmolarity, urine sodium as well as urine spot for protein and creatinine and uric acid and cortisol level was obtained. 10/21: Patient is sitting up in bed in no apparent distress, her sodium is up to 128, she continues to have swelling in both lower extremities, she was taken off sodium chloride tablets, continue Lasix 60 mg IV push every 12 hours, continue Protonix 40 mg IV push every 24 hours, she is scheduled to go for EGD with Dr. Wells, she will need to have a colonoscopy hopefully the next 24 hours, hemoglobin is down to 7.7, she does not appear to be hypertensive at this time, we will continue to follow-up with the patient very closely, she continues to tolerate her treatment very well. Continue fluid restriction to 1000 cc every 24 hours, her serum asthma level is normal at this time, we will follow-up with the patient very closely her prognosis very guarded, she her daughter was at the bedside she was updated about her current condition. 10/22: Patient developed to have a right-sided numbness a code stroke was called on the patient, patient refused to have an IV contrast, she did have a CT scan brain did not show evidence of acute abnormalities, the plan is to transfer the patient to [facility]. awaiting bed availability, neurology consultation is on board, will continue to follow-up with the patient very closely, patient underwent EGD yesterday that showed evidence of Zenker diverticulum, as well as early Chesky ring and minimal gastritis, rectal examination was performed after obtaining consent from the patient under anesthesia and that showed visible hemorrhoids without evidence of thrombosis or bleeding at that time, patient was supposed to go for colonoscopy but we will hold off that until the patient passes through the code stroke. 10/23: Patient is sitting up in bed in no apparent distress, she is feeling a lot better today, she has no chest pain, or shortness of breath, she denies any abdominal pain, she underwent ultrasound the carotid did not show evidence of any hemodynamically significant stenosis, she was seen in consultation by ne urology, she is not going for any colonoscopy at this point in time, she does not have any blood in her stool at this point in time, continue current treatment plan, follow-up with the patient very closely, the plan subacute rehabilitation hopefully Friday meanwhile continue current treatment plan, I will increase her Lantus to 14 units at bedtime, add 4 units of NovoLog plus the sliding scale insulin to make her sugar better, follow-up with the patient very closely, physical therapy evaluation, likely the patient will require to go to subacute rehabilitation on Friday. 10/24: Patient is asking for more fluid I decrease her fluid restriction to 1500 cc every 24 hours, I will switch the patient to oral Lasix 60 mg orally twice every day, continue follow-up with the patient very closely, continue with Lantus at 14 units at bedtime which the patient had refused, continue with NovoLog 4 units before each meal along with a sliding scale which has refused as well, physical therapy evaluation, likely the patient will be able to be discharged to subacute rehabilitation tomorrow morning. Sodium today is down to the 127. REVIEW OF SYSTEMS: Constitutional: No documented fever, no chills, no night sweats. No weight change. Positive for weakness, fatigue or lethargy. No daytime sleepiness. HEENT: No headache. No blurred vision or double vision, no loss of vision. No loss of Hearing, no ringing in the ears, no dizziness. No nasal drainage or congestion. No epistaxis. No sore throat. Lungs: Positive for shortness of breath, occasional cough, no sputum production. No wheezing. Reports dyspnea with activity. Cardiovascular: No chest pain, positive for lower extremity edema. Positive for palpitations. negative for paroxysmal nocturnal dyspnea. Negative for orthopnea. No lightheadedness or dizziness. No syncopal episodes. Abdominal: Reports abdominal pain. No nausea, vomiting. No diarrhea. No constipation. Positive for bloody but no tarry stools reports loss of appetite. Genitourinary: Positive for dysuria, increased frequency, urgency. No urinary retention. Musculoskeletal: No myalgias. Positive muscle weakness, positive for gait dysfunction, no frequent falls. positive for back pain. No neck pain. Integumentary: No wounds, no lesions. No rash or pruritus. No unusual bruising. No change in hair or nails. Neurologic: No aphasia. No facial droop. No change in mentation. No head injury. No headache. No paralysis. positive for facial paresthesia. Psychiatric: positive for depression, positive for anxiety. No mood swings. Endocrine: abnormal blood sugars. positive for weight change. PHYSICAL EXAMINATION: General: 79 year old female sitting up in bed no apparent distress. HEENT: Head is atraumatic, normocephalic, pupils were equal round reactive to light and recommendation, extraocular muscle movement were intact, sclera nonicteric, conjunctivae were pale, mucous membranes of the mouth are somewhat dry. Neck: Supple, no JVP, normal carotid upstroke bilaterally, no lymphadenopathy. Chest: Decreased breath sounds at the bases, few rhonchi, minimal expiratory wheezes, no chest wall tenderness, no intercostal retractions. Heart: First heart sound is normal, second heart sound is normal there is BIANCA 2/6 located at the left sternal border. Abdomen: Soft, obese nontender, nondistended, positive bowel sounds. Extremities: There is +1 edema no calf tenderness DP +2 bilaterally. Neurologic examination: Patient is awake alert and oriented X3, cranial nerves II-12 appear grossly intact, muscle power were 4 out of 5 in upper extremities and 4 out of 5 in bilateral lower extremities, deep tendon reflexes normal bilaterally. ASSESSMENT AND PLAN: 1. Hypervolemic hyponatremia with decreased solute intake. Continue fluid restriction 1500 cc every 24 hours., increase protein intake, I will switch her Lasix to 60 mg orally twice every day. Sodium today is 127 continue to monitor. 2. Lower GI bleed likely related to hemorrhoidal bleed. Hemoglobin stable at 8.8, monitor the patient CBC over the next 24 hours, continue patient on Protonix 40 mg IV push every 24 hours transfuse for hemoglobin less than 7. EGD showed evidence of a single diverticulum as well as early Chesky ring and minimal gastritis rectal examination showed evidence of hemorrhoids without bleeding or thrombosis, there is no plan for colonoscopy as an inpatient. 3. Recurrent UTI with sepsis with Enterococcus faecium . on Azactam 1 g piggyback every 8 hours due to limitation due to multiple patient allergies, 4. Hypertension and hypertensive cardiovascular disease. we will continue with Atenolol 50 mg po bid, Clonidine 0.2 mg 1 tabs po at bedtime, Losartan 100 mg po daily, Amlodipine 5 mg orally daily and we will continue with BP monitoring. 5. Mixed hyperlipidemia. we will continue with low cholesterol diet and exercise and weight loss, patient is not taking any statin at this time, and she refused PCSK9 inhibitor keep LDL-c 55-70 6. Diabetes Mellitus type 2. we will continue with Lantus 14 units at bedtime along with SSI and we will add NovoLog 4 units before each meal 3 times every day, continue with Metformin 1000 mg po daily and Pioglitasone 30 mg po daily, BGM before each meal and at bedtime. 7. Obesity and obstructive sleep apnea and OHS. not able to tolerate CPAP. 8. Vitamin D deficiency. we will continue with vitamin d supplements 9. GERD with PUD. we will continue with Protonix 40 mg IVP daily. 10. Anxiety.we will continue with Xanax as needed. 11. Paroxysmal atrial fibrillation currently in sinus rhythm. Patient is not a candidate for anticoagulation because of recurrent GI bleed. Continue atenolol 50 mg orally twice every day monitor the patient symptoms very closely. 12. DVT Prophylaxis continue heparin 5000 units subcutaneously every 8 hours 13. GI Prophylaxis . we will continue with Pantoprazole 40 mg IV push daily. 14. Right-sided numbness post code stroke patient had a CT scan brain did not show evidence of acute abnormalities, patient refused to have a CT angiography of the neck and head neurology consultation on the carotid did not show evidence of acute abnormalities, echocardiogram showed normal LV function, with severe pulmonary hypertension 15. Guarded prognosis. 16. Physical therapy evaluation. 17. Social work consultation for subacute rehabilitation likely [facility] on Friday Objective - Vital Signs Vital signs: Vital Signs Temp 97.7 F 10/24/24 08:10 Pulse 65 10/24/24 08:10 Resp 18 10/24/24 08:10 BP 149/66 10/24/24 08:10 Pulse Ox 95 10/24/24 08:10 FiO2 Intake & Output 10/23/24 10/24/24 10/24/24 18:59 06:59 18:59 Intake Total 960 540 480 Output Total 200 400 Balance 760 140 480 Weight 110.9 kg Intake: Oral 960 540 480 Output: Urine 200 400 Other: Voiding Method Indwelling Catheter Indwelling Catheter # Bowel Movements 1 - Labs CBC & Chem 7: 10/24/24 06:49 10/24/24 06:49 Labs: Abnormal Lab Results - Last 24 Hours (Table) 10/22/24 10/23/24 10/23/24 Range/Units 06:42 11:46 16:35 WBC (4.50-10.00) 10*3/uL RBC (4.10-5.20) 10*6/uL Hgb (12.0-15.0) g/dL Hct (37.2-46.3) % MCV (80.0-97.0) fL MCH (27.0-32.0) pg MCHC (32.0-37.0) g/dL Plt Count (140-440) 10*3/uL Immature Gran # (0.00-0.04) 10*3/uL Monocytes # (0.20-1.00) 10*3/uL Eosinophils # (0.04-0.35) 10*3/uL Basophils # (0.00-0.10) 10*3/uL Sodium (137-145) mmol/L Chloride (98-107) mmol/L BUN (7-17) mg/dL Creatinine (0.52-1.04) mg/dL Glucose (74-99) mg/dL POC Glucose (mg/dL) 256 H 291 H (70-110) mg/dL Hemoglobin A1c 8.7 H (<=6.0) % AST (14-36) U/L Alkaline Phosphatase (38-126) U/L Albumin (3.5-5.0) g/dL 10/23/24 10/24/24 10/24/24 Range/Units 20:00 06:17 06:49 WBC 11.46 H (4.50-10.00) 10*3/uL RBC 3.09 L (4.10-5.20) 10*6/uL Hgb 7.7 L (12.0-15.0) g/dL Hct 24.6 L (37.2-46.3) % MCV 79.6 L (80.0-97.0) fL MCH 24.9 L (27.0-32.0) pg MCHC 31.3 L (32.0-37.0) g/dL Plt Count 467 H (140-440) 10*3/uL Immature Gran # 0.12 H (0.00-0.04) 10*3/uL Monocytes # 1.45 H (0.20-1.00) 10*3/uL Eosinophils # 0.45 H (0.04-0.35) 10*3/uL Basophils # 0.12 H (0.00-0.10) 10*3/uL Sodium (137-145) mmol/L Chloride (98-107) mmol/L BUN (7-17) mg/dL Creatinine (0.52-1.04) mg/dL Glucose (74-99) mg/dL POC Glucose (mg/dL) 311 H 173 H (70-110) mg/dL Hemoglobin A1c (<=6.0) % AST (14-36) U/L Alkaline Phosphatase (38-126) U/L Albumin (3.5-5.0) g/dL 10/24/24 Range/Units 06:49 WBC (4.50-10.00) 10*3/uL RBC (4.10-5.20) 10*6/uL Hgb (12.0-15.0) g/dL Hct (37.2-46.3) % MCV (80.0-97.0) fL MCH (27.0-32.0) pg MCHC (32.0-37.0) g/dL Plt Count (140-440) 10*3/uL Immature Gran # (0.00-0.04) 10*3/uL Monocytes # (0.20-1.00) 10*3/uL Eosinophils # (0.04-0.35) 10*3/uL Basophils # (0.00-0.10) 10*3/uL Sodium 127 L (137-145) mmol/L Chloride 91 L (98-107) mmol/L BUN 35 H (7-17) mg/dL Creatinine 1.25 H (0.52-1.04) mg/dL Glucose 121 H (74-99) mg/dL POC Glucose (mg/dL) (70-110) mg/dL Hemoglobin A1c (<=6.0) % AST 38 H (14-36) U/L Alkaline Phosphatase 257 H (38-126) U/L Albumin 3.2 L (3.5-5.0) g/dL
[2024-10-24 11:25] LABS: Glucose,Whole Blood 186 mg/dL (70-110)
--- NOTE | 2024-10-24 12:30 | P.PN ---
Subjective Progress Note Date: 10/24/24 Patient is seen for follow-up for hyponatremia, mostly hypervolemic and improved with diuresis. Serum sodium improved to 132 yesterday, now 127. Feeling better today up in chair. Breathing improving. Patient is awake, comfortable, no acute distress. Examination of the heart S1 and S2 Examination of the lungs bilateral breath sounds are heard, occasional wheezing Abdomen is soft obese Examination of lower extremities shows edema 2+ bilaterally, improving Objective - Vital Signs Vital signs: Vital Signs Temp 97.7 F 10/24/24 08:10 Pulse 65 10/24/24 08:10 Resp 18 10/24/24 08:10 BP 149/66 10/24/24 08:10 Pulse Ox 95 10/24/24 08:10 FiO2 Intake & Output 10/23/24 10/24/24 10/24/24 18:59 06:59 18:59 Intake Total 960 540 480 Output Total 200 400 Balance 760 140 480 Weight 110.9 kg Intake: Oral 960 540 480 Output: Urine 200 400 Other: Voiding Method Indwelling Catheter Indwelling Catheter # Bowel Movements 1 - Labs CBC & Chem 7: 10/24/24 06:49 10/24/24 06:49 Labs: Abnormal Lab Results - Last 24 Hours (Table) 10/22/24 10/23/24 10/23/24 Range/Units 06:42 11:46 16:35 WBC (4.50-10.00) 10*3/uL RBC (4.10-5.20) 10*6/uL Hgb (12.0-15.0) g/dL Hct (37.2-46.3) % MCV (80.0-97.0) fL MCH (27.0-32.0) pg MCHC (32.0-37.0) g/dL Plt Count (140-440) 10*3/uL Immature Gran # (0.00-0.04) 10*3/uL Monocytes # (0.20-1.00) 10*3/uL Eosinophils # (0.04-0.35) 10*3/uL Basophils # (0.00-0.10) 10*3/uL Sodium (137-145) mmol/L Chloride (98-107) mmol/L BUN (7-17) mg/dL Creatinine (0.52-1.04) mg/dL Glucose (74-99) mg/dL POC Glucose (mg/dL) 256 H 291 H (70-110) mg/dL Hemoglobin A1c 8.7 H (<=6.0) % AST (14-36) U/L Alkaline Phosphatase (38-126) U/L Albumin (3.5-5.0) g/dL 10/23/24 10/24/24 10/24/24 Range/Units 20:00 06:17 06:49 WBC 11.46 H (4.50-10.00) 10*3/uL RBC 3.09 L (4.10-5.20) 10*6/uL Hgb 7.7 L (12.0-15.0) g/dL Hct 24.6 L (37.2-46.3) % MCV 79.6 L (80.0-97.0) fL MCH 24.9 L (27.0-32.0) pg MCHC 31.3 L (32.0-37.0) g/dL Plt Count 467 H (140-440) 10*3/uL Immature Gran # 0.12 H (0.00-0.04) 10*3/uL Monocytes # 1.45 H (0.20-1.00) 10*3/uL Eosinophils # 0.45 H (0.04-0.35) 10*3/uL Basophils # 0.12 H (0.00-0.10) 10*3/uL Sodium (137-145) mmol/L Chloride (98-107) mmol/L BUN (7-17) mg/dL Creatinine (0.52-1.04) mg/dL Glucose (74-99) mg/dL POC Glucose (mg/dL) 311 H 173 H (70-110) mg/dL Hemoglobin A1c (<=6.0) % AST (14-36) U/L Alkaline Phosphatase (38-126) U/L Albumin (3.5-5.0) g/dL 10/24/24 Range/Units 06:49 WBC (4.50-10.00) 10*3/uL RBC (4.10-5.20) 10*6/uL Hgb (12.0-15.0) g/dL Hct (37.2-46.3) % MCV (80.0-97.0) fL MCH (27.0-32.0) pg MCHC (32.0-37.0) g/dL Plt Count (140-440) 10*3/uL Immature Gran # (0.00-0.04) 10*3/uL Monocytes # (0.20-1.00) 10*3/uL Eosinophils # (0.04-0.35) 10*3/uL Basophils # (0.00-0.10) 10*3/uL Sodium 127 L (137-145) mmol/L Chloride 91 L (98-107) mmol/L BUN 35 H (7-17) mg/dL Creatinine 1.25 H (0.52-1.04) mg/dL Glucose 121 H (74-99) mg/dL POC Glucose (mg/dL) (70-110) mg/dL Hemoglobin A1c (<=6.0) % AST 38 H (14-36) U/L Alkaline Phosphatase 257 H (38-126) U/L Albumin 3.2 L (3.5-5.0) g/dL Assessment and Plan Assessment: 1. Hypervolemic hyponatremia, maintained on IV Lasix and improving. Sodium chloride tabs on hold due to hypervolemia. 2. Possible bronchitis 3. Pyuria rule out UTI 4. Volume overload 5. Hypertension Plan: Lasix changed to PO 60mg BID Continue off of sodium chloride tabs Continue with antibiotics
--- NOTE | 2024-10-24 12:57 | P.PN ---
Subjective Progress Note Date: 10/23/24 Patient was seen for follow-up. Patient denies any new focal symptoms. Offers no new complaints. States feels tired. Objective - Vital Signs Vital signs: Vital Signs Temp 97.8 F 10/23/24 11:44 Pulse 69 10/23/24 11:44 Resp 18 10/23/24 11:44 BP 125/68 10/23/24 11:44 Pulse Ox 94 L 10/23/24 11:44 FiO2 Intake & Output 10/22/24 10/23/24 10/23/24 18:59 06:59 18:59 Intake Total 660 240 480 Output Total 475 400 Balance 185 -160 480 Weight 109.5 kg Intake: Oral 660 240 480 Output: Urine 475 400 Other: Voiding Method Indwelling Catheter Indwelling Catheter Indwelling Catheter # Bowel Movements 1 1 - Exam Patient is alert and awake, fully oriented. Speech and language functions are normal. Examination remains unchanged. Nonfocal. She does have moderate peripheral edema, and has a has Band-Aids wrapped around her legs and feet. - Labs CBC & Chem 7: 10/24/24 06:49 10/24/24 06:49 Labs: Abnormal Lab Results - Last 24 Hours (Table) 10/22/24 10/22/24 10/22/24 Range/Units 06:42 16:34 19:59 POC Glucose (mg/dL) 272 H 394 H (70-110) mg/dL Hemoglobin A1c 8.7 H (<=6.0) % 10/23/24 10/23/24 Range/Units 06:07 11:46 POC Glucose (mg/dL) 149 H 256 H (70-110) mg/dL Hemoglobin A1c (<=6.0) % Assessment and Plan Assessment: * Possible TIA manifesting with transient tingling and numbness in the right hand, arm and right cheek. Symptoms resolved in 30-45 minutes. Current neurological examination is normal and her NIH stroke scale is 0. Patient was not a candidate for TNK. * Now patient complaining of some intermittent paresthesias left cheek only when turns her head, appears more positional. Does not appear ischemia. * diabetes, not well controlled * Hypertension * Hyperlipidemia * External hemorrhoids * Anemia * Hypervolemia * Hyponatremia * Recent bronchitis * Recent UTI * Obesity Plan: * Patient will undergo workup for TIA. * 2-D echo revealed normal LV size and systolic function with EF 60 to 65%. No obvious regional wall motion abnormalities. Severe right atrial dilation. Mildly increased left atrial diameter. Moderately increased left atrial volume. No valvular abnormalities. * Carotid Doppler, revealed no hemodynamically significant stenosis in either ICA. Antegrade flow in both vertebral arteries. * Fasting a.m. lipid panel the cholesterol 260, LDL 149, HDL 86 and triglycerides 119. Patient declining statins. * Hemoglobin A1c 8.7, consistent with poorly controlled diabetes. Recommend optimize control of diabetes to target A1c <7.0. * Optimize control of blood pressure. * Recommend starting aspirin because of multiple vascular risk factors, but patient completely declined. She understands all risks of not taking antiplatelet medication including recurrent strokes, which could be a major stroke. She states that she bleeds a lot whenever she takes aspirin.. * Neuro checks every shift * Telemetry monitoring rule out any arrhythmia * PT, OT * Speech is completely normal. * DVT prophylaxis: Recommend Heparin 5000 units subcu every 8 hours, however patient is declining most treatments. She is declining SCDs at this time. She does have Serafin wrap's wrapped around. Will defer DVT prophylaxis to IM. She understands the risks of no DVT prophylaxis, that can lead to sudden * Neurologically no other recommendations besides above. Please reconsult neurology if any other concerns. We will sign off.
[2024-10-24] MEDS: FUROSEMIDE 20 MG TAB PO SCH (15:32)
[2024-10-24 16:19] LABS: Glucose,Whole Blood 329 mg/dL (70-110)
[2024-10-24 20:05] LABS: Glucose,Whole Blood 256 mg/dL (70-110)
[2024-10-25 02:13] LABS: Glucose,Whole Blood 248 mg/dL (70-110)
[2024-10-25 05:14] LABS: Basophils # (A) 0.12 10*3/uL (0.00-0.10); Basophils % (A) 1.2 %; Eosinophils # (A) 0.40 10*3/uL (0.04-0.35); Eosinophils % (A) 4.0 %; HCT 25.3 % (37.2-46.3); HGB 7.9 g/dL (12.0-15.0); Lymphocytes # (A) 2.42 10*3/uL (0.90-5.00); Lymphocytes % (A) 24.3 %; MCH 24.5 pg (27.0-32.0); MCHC 31.2 g/dL (32.0-37.0); MCV 78.6 fL (80.0-97.0); Monocytes # (A) 1.16 10*3/uL (0.20-1.00); Monocytes % (A) 11.7 %; Neutrophils # (A) 5.73 10*3/uL (1.80-7.70); Neutrophils % (A) 57.7 %; Platelet Count 505 10*3/uL (140-440); RBC 3.22 10*6/uL (4.10-5.20); RDW 18.2 % (11.5-14.5); WBC 9.94 10*3/uL (4.50-10.00)
[2024-10-25 05:29] LABS: ALT 29 U/L (4-34); AST 37 U/L (14-36); African American GFR (CKD) 65 (>60 ml/min/1.73 sqM); Albumin 3.2 g/dL (3.5-5.0); Alkaline Phosphatase 260 U/L (38-126); Anion Gap 10 mmol/L; Blood Urea Nitrogen 34 mg/dL (7-17); Calcium 9.6 mg/dL (8.4-10.2); Carbon Dioxide 27 mmol/L (22-30); Chloride 89 mmol/L (98-107); Glucose 185 mg/dL (74-99); Non-African American GFR(CKD) 56 (>60 ml/min/1.73 sqM); Potassium 4.0 mmol/L (3.5-5.1); Sodium 126 mmol/L (137-145); Total Protein 6.4 g/dL (6.3-8.2)
[2024-10-25 05:36] LABS: NT-Pro-B-Type Natriuretic Pept 736 pg/mL
[2024-10-25 05:57] LABS: Glucose,Whole Blood 190 mg/dL (70-110)
--- NOTE | 2024-10-25 10:29 | P.PN ---
Subjective Patient is seen in follow-up for hyponatremia. Sodium level 126 today. On oral Lasix. Nonoliguric. Has Harding catheter. Oral intake fair. Vital signs are stable. General: No acute distress. HEENT: Head exam is unremarkable. LUNGS: No audible rhonchi or wheezes. HEART: Rate and Rhythm are regular. ABDOMEN: Obese, nontender. EXTREMITITES: 1+ edema. Lower extremities wrapped. Objective - Vital Signs Vital signs: Vital Signs Temp 97.5 F L 10/25/24 09:00 Pulse 60 10/25/24 09:00 Resp 16 10/25/24 09:00 BP 134/61 10/25/24 09:00 Pulse Ox 98 10/25/24 09:00 FiO2 Intake & Output 10/24/24 10/25/24 10/25/24 18:59 06:59 18:59 Intake Total 1200 380 240 Output Total 975 1070 Balance 225 -690 240 Weight 109.8 kg Intake: IV 20 Invasive Line 1 20 Oral 1200 360 240 Output: Urine 975 1070 Other: Voiding Method Indwelling Catheter Indwelling Catheter Indwelling Catheter # Bowel Movements 1 - Labs CBC & Chem 7: 10/25/24 04:24 10/25/24 04:24 Labs: Abnormal Lab Results - Last 24 Hours (Table) 10/24/24 10/24/24 10/24/24 Range/Units 11:23 16:17 20:04 RBC (4.10-5.20) 10*6/uL Hgb (12.0-15.0) g/dL Hct (37.2-46.3) % MCV (80.0-97.0) fL MCH (27.0-32.0) pg MCHC (32.0-37.0) g/dL Plt Count (140-440) 10*3/uL Immature Gran # (0.00-0.04) 10*3/uL Monocytes # (0.20-1.00) 10*3/uL Eosinophils # (0.04-0.35) 10*3/uL Basophils # (0.00-0.10) 10*3/uL Sodium (137-145) mmol/L Chloride (98-107) mmol/L BUN (7-17) mg/dL Glucose (74-99) mg/dL POC Glucose (mg/dL) 186 H 329 H 256 H (70-110) mg/dL AST (14-36) U/L Alkaline Phosphatase (38-126) U/L Albumin (3.5-5.0) g/dL 10/25/24 10/25/24 10/25/24 Range/Units 02:11 04:24 04:24 RBC 3.22 L (4.10-5.20) 10*6/uL Hgb 7.9 L (12.0-15.0) g/dL Hct 25.3 L (37.2-46.3) % MCV 78.6 L (80.0-97.0) fL MCH 24.5 L (27.0-32.0) pg MCHC 31.2 L (32.0-37.0) g/dL Plt Count 505 H (140-440) 10*3/uL Immature Gran # 0.11 H (0.00-0.04) 10*3/uL Monocytes # 1.16 H (0.20-1.00) 10*3/uL Eosinophils # 0.40 H (0.04-0.35) 10*3/uL Basophils # 0.12 H (0.00-0.10) 10*3/uL Sodium 126 L (137-145) mmol/L Chloride 89 L (98-107) mmol/L BUN 34 H (7-17) mg/dL Glucose 185 H (74-99) mg/dL POC Glucose (mg/dL) 248 H (70-110) mg/dL AST 37 H (14-36) U/L Alkaline Phosphatase 260 H (38-126) U/L Albumin 3.2 L (3.5-5.0) g/dL 10/25/24 Range/Units 05:56 RBC (4.10-5.20) 10*6/uL Hgb (12.0-15.0) g/dL Hct (37.2-46.3) % MCV (80.0-97.0) fL MCH (27.0-32.0) pg MCHC (32.0-37.0) g/dL Plt Count (140-440) 10*3/uL Immature Gran # (0.00-0.04) 10*3/uL Monocytes # (0.20-1.00) 10*3/uL Eosinophils # (0.04-0.35) 10*3/uL Basophils # (0.00-0.10) 10*3/uL Sodium (137-145) mmol/L Chloride (98-107) mmol/L BUN (7-17) mg/dL Glucose (74-99) mg/dL POC Glucose (mg/dL) 190 H (70-110) mg/dL AST (14-36) U/L Alkaline Phosphatase (38-126) U/L Albumin (3.5-5.0) g/dL Assessment and Plan Plan: Assessment: 1. Hyponatremia, hypervolemic. Sodium 126 today. 2. Volume overload. 3. Benign hypertension. Stable. 4. Enterococcus UTI on antibiotics. 5. Diabetes mellitus. Plan: Maintain fluid restriction. Encouraged oral intake. Maintain oral Lasix. Samsca x 1 dose today. Repeat BMP 2 to 3 days postdischarge. Follow-up outpatient 1 week postdischarge. Case discussed with primary attending.
[2024-10-25 11:43] LABS: Glucose,Whole Blood 257 mg/dL (70-110)
[2024-10-25] MEDS: TOLVAPTAN 15 MG TABLET PO ONE (11:48)
[2024-10-25 15:33] VITALS: BMI 40.2
[2024-10-25 16:33] LABS: Glucose,Whole Blood 195 mg/dL (70-110)
--- NOTE | 2024-10-25 18:48 | P.PN ---
Subjective Progress Note Date: 10/25/24 HISTORY OF PRESENT ILLNESS: This is a 79 year old female with a previous medical history signif icant for hypertension and hypertensive cardiovascular disease, hyperlipidemia, diabetes mellitus type 2, and diabetic polyneuropathy, GERD with duodenal ulcer, and obesity with obstructive sleep apnea, and obesity hypoventilation syndrome, chronic diastolic heart failure, patient was last hospitalized at [facility] 06/20/2024 after she was admitted for 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 and d ecreased solute intake, initially she was treated with IV diuretics, which led to hyponatremia that required treatment with hypertonic 3% saline along with tolvaptan and urea until her sodium went back to normal, patient was rehospitalized at [facility] August 13, 2024 for what appears to be asthma exacerbation as well as significant hyponatremia as well, and she was treated and she was sent home, she was supposed to see me in the office yesterday however she contacted my office stating that she is having rectal bleeding, her home care nurse stated that she is having hard time getting out of the toilet because of the bleeding, at the same time she is extremely weak beside her sodium was extremely low at the same time therefore the patient was directed to go to the emergency department, she was found to have an sodium of 123, she was also found to have urinary tract infection for which she was started on Azactam 1 g piggyback every 24 hours, as far as every GI bleed the patient refuses a rectal examination at this point in time, and she claimed that this is coming from her hemorrhoids her hemoglobin is around 8.8, her potassium was slightly elevated, because of that the patient was started on IV Protonix 40 mg IV push every 24 hours, along with Azactam 1 g piggyback every 8 hours, she was admitted to the hospital on fluid restriction, discontinued IV fluid, started on Lasix 60 mg IV push every 12 hours along with sodium chloride tablet 1 g orally twice every day serum osmolality, urine osmolarity, urine sodium as well as urine spot for protein and creatinine and uric acid and cortisol level was obtained. 10/21: Patient is sitting up in bed in no apparent distress, her sodium is up to 128, she continues to have swelling in both lower extremities, she was taken off sodium chloride tablets, continue Lasix 60 mg IV push every 12 hours, continue Protonix 40 mg IV push every 24 hours, she is scheduled to go for EGD with Dr. Wells, she will need to have a colonoscopy hopefully the next 24 hours, hemoglobin is down to 7.7, she does not appear to be hypertensive at this time, we will continue to follow-up with the patient very closely, she continues to tolerate her treatment very well. Continue fluid restriction to 1000 cc every 24 hours, her serum asthma level is normal at this time, we will follow-up with the patient very closely her prognosis very guarded, she her daughter was at the bedside she was updated about her current condition. 10/22: Patient developed to have a right-sided numbness a code stroke was called on the patient, patient refused to have an IV contrast, she did have a CT scan brain did not show evidence of acute abnormalities, the plan is to transfer the patient to [facility]. awaiting bed availability, neurology consultation is on board, will continue to follow-up with the patient very closely, patient underwent EGD yesterday that showed evidence of Zenker diverticulum, as well as early Chesky ring and minimal gastritis, rectal examination was performed after obtaining consent from the patient under anesthesia and that showed visible hemorrhoids without evidence of thrombosis or bleeding at that time, patient was supposed to go for colonoscopy but we will hold off that until the patient passes through the code stroke. 10/23: Patient is sitting up in bed in no apparent distress, she is feeling a lot better today, she has no chest pain, or shortness of breath, she denies any abdominal pain, she underwent ultrasound the carotid did not show evidence of any hemodynamically significant stenosis, she was seen in consultation by ne urology, she is not going for any colonoscopy at this point in time, she does not have any blood in her stool at this point in time, continue current treatment plan, follow-up with the patient very closely, the plan subacute rehabilitation hopefully Friday meanwhile continue current treatment plan, I will increase her Lantus to 14 units at bedtime, add 4 units of NovoLog plus the sliding scale insulin to make her sugar better, follow-up with the patient very closely, physical therapy evaluation, likely the patient will require to go to subacute rehabilitation on Friday. 10/24: Patient is asking for more fluid I decrease her fluid restriction to 1500 cc every 24 hours, I will switch the patient to oral Lasix 60 mg orally twice every day, continue follow-up with the patient very closely, continue with Lantus at 14 units at bedtime which the patient had refused, continue with NovoLog 4 units before each meal along with a sliding scale which has refused as well, physical therapy evaluation, likely the patient will be able to be discharged to subacute rehabilitation tomorrow morning. Sodium today is down to the 127. 10/25: Patient is feeling better today, she is sitting up in her recliner, physical therapy evaluation today continue fluid restriction 1500 cc every 24 hours, patient will be given 1 dose of Samsca today 15 mg orally x 1, repeat the sodium tomorrow morning, await prior authorization for the patient to be transferred to [facility] on the [place], physical therapy as well as nursing home social worker consultation appreciated, continue to monitor the patient very closely repeat labs tomorrow morning REVIEW OF SYSTEMS: Constitutional: No documented fever, no chills, no night sweats. No weight change. Positive for weakness, fatigue or lethargy. No daytime sleepiness. HEENT: No headache. No blurred vision or double vision, no loss of vision. No loss of Hearing, no ringing in the ears, no dizziness. No nasal drainage or congestion. No epistaxis. No sore throat. Lungs: Positive for shortness of breath, occasional cough, no sputum production. No wheezing. Reports dyspnea with activity. Cardiovascular: No chest pain, positive for lower extremity edema. Positive for palpitations. negative for paroxysmal nocturnal dyspnea. Negative for orthopnea. No lightheadedness or dizziness. No syncopal episodes. Abdominal: Reports abdominal pain. No nausea, vomiting. No diarrhea. No constipation. Positive for bloody but no tarry stools reports loss of appetite. Genitourinary: Positive for dysuria, increased frequency, urgency. No urinary retention. Musculoskeletal: No myalgias. Positive muscle weakness, positive for gait dysfunction, no frequent falls. positive for back pain. No neck pain. Integumentary: No wounds, no lesions. No rash or pruritus. No unusual bruising. No change in hair or nails. Neurologic: No aphasia. No facial droop. No change in mentation. No head injury. No headache. No paralysis. positive for facial paresthesia. Psychiatric: positive for depression, positive for anxiety. No mood swings. Endocrine: abnormal blood sugars. positive for weight change. PHYSICAL EXAMINATION: General: 79 year old female sitting up in bed no apparent distress. HEENT: Head is atraumatic, normocephalic, pupils were equal round reactive to light and recommendation, extraocular muscle movement were intact, sclera nonicteric, conjunctivae were pale, mucous membranes of the mouth are somewhat dry. Neck: Supple, no JVP, normal carotid upstroke bilaterally, no lymphadenopathy. Chest: Decreased breath sounds at the bases, few rhonchi, minimal expiratory wheezes, no chest wall tenderness, no intercostal retractions. Heart: First heart sound is normal, second heart sound is normal there is BIANCA 2/6 located at the left sternal border. Abdomen: Soft, obese nontender, nondistended, positive bowel sounds. Extremities: There is +1 edema no calf tenderness DP +2 bilaterally. Neurologic examination: Patient is awake alert and oriented X3, cranial nerves II-12 appear grossly intact, muscle power were 4 out of 5 in upper extremities and 4 out of 5 in bilateral lower extremities, deep tendon reflexes normal bilaterally. ASSESSMENT AND PLAN: 1. Hypervolemic hyponatremia with decreased solute intake. Continue fluid restriction 1500 cc every 24 hours., increase protein intake, continue Lasix 60 mg orally twice every day, patient did receive 1 dose of Samsca 15 mg orally x 1, repeat the patient labs tomorrow morning. 2. Lower GI bleed likely related to hemorrhoidal bleed. Hemoglobin stable at 8.8, monitor the patient CBC over the next 24 hours, continue patient on Protonix 40 mg IV push every 24 hours transfuse for hemoglobin less than 7. EGD showed evidence of a single diverticulum as well as early Chesky ring and minimal gastritis rectal examination showed evidence of hemorrhoids without bleeding or thrombosis, there is no plan for colonoscopy as an inpatient. 3. Recurrent UTI with sepsis with Enterococcus faecium . on Azactam 1 g piggyback every 8 hours due to limitation due to multiple patient allergies. 4. Hypertension and hypertensive cardiovascular disease. we will continue with Atenolol 50 mg po bid, Clonidine 0.2 mg 1 tabs po at bedtime, Losartan 100 mg po daily, Amlodipine 5 mg orally daily and we will continue with BP monitoring. 5. Mixed hyperlipidemia. we will continue with low cholesterol diet and exercise and weight loss, patient is not taking any statin at this time, and she refused PCSK9 inhibitor keep LDL-c 55-70 6. Diabetes Mellitus type 2. we will continue with Lantus 14 units at bedtime along with SSI and we will add NovoLog 4 units before each meal 3 times every day, continue with Metformin 1000 mg po daily and Pioglitasone 30 mg po daily, BGM before each meal and at bedtime. 7. Obesity and obstructive sleep apnea and OHS. not able to tolerate CPAP. 8. Vitamin D deficiency. we will continue with vitamin d supplements 9. GERD with PUD. we will continue with Protonix 40 mg IVP daily. 10. Anxiety.we will continue with Xanax as needed. 11. Paroxysmal atrial fibrillation currently in sinus rhythm. Patient is not a candidate for anticoagulation because of recurrent GI bleed. Continue atenolol 50 mg orally twice every day monitor the patient symptoms very closely. 12. DVT Prophylaxis continue heparin 5000 units subcutaneously every 8 hours 13. GI Prophylaxis . we will continue with Pantoprazole 40 mg IV push daily. 14. Right-sided numbness post code stroke patient had a CT scan brain did not show evidence of acute abnormalities, patient refused to have a CT angiography of the neck and head neurology consultation on the carotid did not show evidence of acute abnormalities, echocardiogram showed normal LV function, with severe pulmonary hypertension 15. Guarded prognosis. 16. Physical therapy evaluation. 17. Awaiting prior authorization for the patient to be transferred to [facility]. Objective - Vital Signs Vital signs: Vital Signs Temp 97.5 F L 10/25/24 09:00 Pulse 60 10/25/24 09:00 Resp 16 10/25/24 09:00 BP 134/61 10/25/24 09:00 Pulse Ox 98 10/25/24 09:00 FiO2 Intake & Output 10/24/24 10/25/24 10/25/24 18:59 06:59 18:59 Intake Total 1200 380 240 Output Total 975 1070 Balance 225 -690 240 Weight 109.8 kg Intake: IV 20 Invasive Line 1 20 Oral 1200 360 240 Output: Urine 975 1070 Other: Voiding Method Indwelling Catheter Indwelling Catheter Indwelling Catheter # Bowel Movements 1 - Labs CBC & Chem 7: 10/25/24 04:24 10/25/24 04:24 Labs: Abnormal Lab Results - Last 24 Hours (Table) 10/24/24 10/24/24 10/24/24 Range/Units 11:23 16:17 20:04 RBC (4.10-5.20) 10*6/uL Hgb (12.0-15.0) g/dL Hct (37.2-46.3) % MCV (80.0-97.0) fL MCH (27.0-32.0) pg MCHC (32.0-37.0) g/dL Plt Count (140-440) 10*3/uL Immature Gran # (0.00-0.04) 10*3/uL Monocytes # (0.20-1.00) 10*3/uL Eosinophils # (0.04-0.35) 10*3/uL Basophils # (0.00-0.10) 10*3/uL Sodium (137-145) mmol/L Chloride (98-107) mmol/L BUN (7-17) mg/dL Glucose (74-99) mg/dL POC Glucose (mg/dL) 186 H 329 H 256 H (70-110) mg/dL AST (14-36) U/L Alkaline Phosphatase (38-126) U/L Albumin (3.5-5.0) g/dL 10/25/24 10/25/24 10/25/24 Range/Units 02:11 04:24 04:24 RBC 3.22 L (4.10-5.20) 10*6/uL Hgb 7.9 L (12.0-15.0) g/dL Hct 25.3 L (37.2-46.3) % MCV 78.6 L (80.0-97.0) fL MCH 24.5 L (27.0-32.0) pg MCHC 31.2 L (32.0-37.0) g/dL Plt Count 505 H (140-440) 10*3/uL Immature Gran # 0.11 H (0.00-0.04) 10*3/uL Monocytes # 1.16 H (0.20-1.00) 10*3/uL Eosinophils # 0.40 H (0.04-0.35) 10*3/uL Basophils # 0.12 H (0.00-0.10) 10*3/uL Sodium 126 L (137-145) mmol/L Chloride 89 L (98-107) mmol/L BUN 34 H (7-17) mg/dL Glucose 185 H (74-99) mg/dL POC Glucose (mg/dL) 248 H (70-110) mg/dL AST 37 H (14-36) U/L Alkaline Phosphatase 260 H (38-126) U/L Albumin 3.2 L (3.5-5.0) g/dL / Range/Units 05:56 RBC (4.10-5.20) 10*6/uL Hgb (12.0-15.0) g/dL Hct (37.2-46.3) % MCV (80.0-97.0) fL MCH (27.0-32.0) pg MCHC (32.0-37.0) g/dL Plt Count (140-440) 10*3/uL Immature Gran # (0.00-0.04) 10*3/uL Monocytes # (0.20-1.00) 10*3/uL Eosinophils # (0.04-0.35) 10*3/uL Basophils # (0.00-0.10) 10*3/uL Sodium (137-145) mmol/L Chloride (98-107) mmol/L BUN (7-17) mg/dL Glucose (74-99) mg/dL POC Glucose (mg/dL) 190 H (70-110) mg/dL AST (14-36) U/L Alkaline Phosphatase (38-126) U/L Albumin (3.5-5.0) g/dL
[2024-10-25 19:54] LABS: Glucose,Whole Blood 386 mg/dL (70-110)
[2024-10-26 00:14] VITALS: TEMP 97.4
[2024-10-26 04:51] VITALS: RESP 16
[2024-10-26 06:02] LABS: Glucose,Whole Blood 174 mg/dL (70-110)
[2024-10-26 06:15] LABS: Basophils # (A) 0.11 10*3/uL (0.00-0.10); Basophils % (A) 1.2 %; Eosinophils # (A) 0.38 10*3/uL (0.04-0.35); Eosinophils % (A) 4.3 %; HCT 25.9 % (37.2-46.3); HGB 7.9 g/dL (12.0-15.0); Lymphocytes # (A) 2.52 10*3/uL (0.90-5.00); Lymphocytes % (A) 28.2 %; MCH 24.4 pg (27.0-32.0); MCHC 30.5 g/dL (32.0-37.0); MCV 79.9 fL (80.0-97.0); Monocytes # (A) 0.98 10*3/uL (0.20-1.00); Monocytes % (A) 11.0 %; Neutrophils # (A) 4.81 10*3/uL (1.80-7.70); Neutrophils % (A) 53.8 %; Platelet Count 460 10*3/uL (140-440); RBC 3.24 10*6/uL (4.10-5.20); RDW 18.3 % (11.5-14.5); WBC 8.93 10*3/uL (4.50-10.00)
[2024-10-26 06:35] LABS: ALT 27 U/L (4-34); AST 36 U/L (14-36); African American GFR (CKD) 63 (>60 ml/min/1.73 sqM); Albumin 3.1 g/dL (3.5-5.0); Alkaline Phosphatase 235 U/L (38-126); Anion Gap 7 mmol/L; Blood Urea Nitrogen 37 mg/dL (7-17); Calcium 9.3 mg/dL (8.4-10.2); Carbon Dioxide 28 mmol/L (22-30); Chloride 93 mmol/L (98-107); Glucose 161 mg/dL (74-99); Magnesium 1.5 mg/dL (1.6-2.3); Non-African American GFR(CKD) 55 (>60 ml/min/1.73 sqM); Potassium 3.8 mmol/L (3.5-5.1); Sodium 128 mmol/L (137-145); Total Protein 6.2 g/dL (6.3-8.2)
--- NOTE | 2024-10-26 10:18 | P.PN ---
Subjective Patient is seen in follow-up for hyponatremia. Sodium level 128 today. On oral Lasix. Received Samsca yesterday. Nonoliguric. Has Harding catheter. Oral intake fair. Vital signs are stable. General: No acute distress. HEENT: Head exam is unremarkable. LUNGS: No audible rhonchi or wheezes. HEART: Rate and Rhythm are regular. ABDOMEN: Obese, nontender. EXTREMITITES: 1+ edema. Lower extremities wrapped. Objective - Vital Signs Vital signs: Vital Signs Temp 97.4 F L 10/26/24 04:00 Pulse 55 L 10/26/24 09:14 Resp 16 10/26/24 09:14 BP 128/69 10/26/24 09:14 Pulse Ox 98 10/26/24 09:14 FiO2 Intake & Output 10/25/24 10/26/24 10/26/24 18:59 06:59 18:59 Intake Total 460 240 Output Total 400 400 Balance 60 -400 240 Weight 109.8 kg 111.5 kg Intake: IV 100 Aztreonam 2 gm In Sodium 100 Chloride 0.9% 100 ml @ 33 .3 mls/hr IVPB Q8H [facility] Rx #:[id number] Oral 360 240 Output: Urine 400 400 Other: Voiding Method Indwelling Catheter Indwelling Catheter Indwelling Catheter - Labs CBC & Chem 7: 10/26/24 05:40 10/26/24 05:40 Labs: Abnormal Lab Results - Last 24 Hours (Table) 10/25/24 10/25/24 10/25/24 Range/Units 11:41 16:31 19:53 RBC (4.10-5.20) 10*6/uL Hgb (12.0-15.0) g/dL Hct (37.2-46.3) % MCV (80.0-97.0) fL MCH (27.0-32.0) pg MCHC (32.0-37.0) g/dL Plt Count (140-440) 10*3/uL Immature Gran # (0.00-0.04) 10*3/uL Eosinophils # (0.04-0.35) 10*3/uL Basophils # (0.00-0.10) 10*3/uL Sodium (137-145) mmol/L Chloride (98-107) mmol/L BUN (7-17) mg/dL Glucose (74-99) mg/dL POC Glucose (mg/dL) 257 H 195 H 386 H (70-110) mg/dL Magnesium (1.6-2.3) mg/dL Alkaline Phosphatase (38-126) U/L Total Protein (6.3-8.2) g/dL Albumin (3.5-5.0) g/dL 10/26/24 10/26/24 10/26/24 Range/Units 05:40 05:40 06:01 RBC 3.24 L (4.10-5.20) 10*6/uL Hgb 7.9 L (12.0-15.0) g/dL Hct 25.9 L (37.2-46.3) % MCV 79.9 L (80.0-97.0) fL MCH 24.4 L (27.0-32.0) pg MCHC 30.5 L (32.0-37.0) g/dL Plt Count 460 H (140-440) 10*3/uL Immature Gran # 0.13 H (0.00-0.04) 10*3/uL Eosinophils # 0.38 H (0.04-0.35) 10*3/uL Basophils # 0.11 H (0.00-0.10) 10*3/uL Sodium 128 L (137-145) mmol/L Chloride 93 L (98-107) mmol/L BUN 37 H (7-17) mg/dL Glucose 161 H (74-99) mg/dL POC Glucose (mg/dL) 174 H (70-110) mg/dL Magnesium 1.5 L (1.6-2.3) mg/dL Alkaline Phosphatase 235 H (38-126) U/L Total Protein 6.2 L (6.3-8.2) g/dL Albumin 3.1 L (3.5-5.0) g/dL Assessment and Plan Plan: Assessment: 1. Hyponatremia, hypervolemic. Sodium 128 today. 2. Volume overload. Improved with diuresis. Also received Samsca this admission. 3. Benign hypertension. Stable. 4. Enterococcus UTI on antibiotics. 5. Diabetes mellitus. Plan: Maintain fluid restriction. Encouraged oral intake. Maintain oral Lasix. Repeat BMP 2 to 3 days postdischarge. Follow-up outpatient 1 week postdischarge. Case discussed with primary attending.
--- NOTE | 2024-10-26 10:51 | P.PN ---
Subjective Progress Note Date: 10/26/24 HISTORY OF PRESENT ILLNESS: This is a 79 year old female with a previous medical history signif icant for hypertension and hypertensive cardiovascular disease, hyperlipidemia, diabetes mellitus type 2, and diabetic polyneuropathy, GERD with duodenal ulcer, and obesity with obstructive sleep apnea, and obesity hypoventilation syndrome, chronic diastolic heart failure, patient was last hospitalized at [facility] 06/20/2024 after she was admitted for 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 and d ecreased solute intake, initially she was treated with IV diuretics, which led to hyponatremia that required treatment with hypertonic 3% saline along with tolvaptan and urea until her sodium went back to normal, patient was rehospitalized at [facility] August 13, 2024 for what appears to be asthma exacerbation as well as significant hyponatremia as well, and she was treated and she was sent home, she was supposed to see me in the office yesterday however she contacted my office stating that she is having rectal bleeding, her home care nurse stated that she is having hard time getting out of the toilet because of the bleeding, at the same time she is extremely weak beside her sodium was extremely low at the same time therefore the patient was directed to go to the emergency department, she was found to have an sodium of 123, she was also found to have urinary tract infection for which she was started on Azactam 1 g piggyback every 24 hours, as far as every GI bleed the patient refuses a rectal examination at this point in time, and she claimed that this is coming from her hemorrhoids her hemoglobin is around 8.8, her potassium was slightly elevated, because of that the patient was started on IV Protonix 40 mg IV push every 24 hours, along with Azactam 1 g piggyback every 8 hours, she was admitted to the hospital on fluid restriction, discontinued IV fluid, started on Lasix 60 mg IV push every 12 hours along with sodium chloride tablet 1 g orally twice every day serum osmolality, urine osmolarity, urine sodium as well as urine spot for protein and creatinine and uric acid and cortisol level was obtained. 10/21: Patient is sitting up in bed in no apparent distress, her sodium is up to 128, she continues to have swelling in both lower extremities, she was taken off sodium chloride tablets, continue Lasix 60 mg IV push every 12 hours, continue Protonix 40 mg IV push every 24 hours, she is scheduled to go for EGD with Dr. Wells, she will need to have a colonoscopy hopefully the next 24 hours, hemoglobin is down to 7.7, she does not appear to be hypertensive at this time, we will continue to follow-up with the patient very closely, she continues to tolerate her treatment very well. Continue fluid restriction to 1000 cc every 24 hours, her serum asthma level is normal at this time, we will follow-up with the patient very closely her prognosis very guarded, she her daughter was at the bedside she was updated about her current condition. 10/22: Patient developed to have a right-sided numbness a code stroke was called on the patient, patient refused to have an IV contrast, she did have a CT scan brain did not show evidence of acute abnormalities, the plan is to transfer the patient to [facility]. awaiting bed availability, neurology consultation is on board, will continue to follow-up with the patient very closely, patient underwent EGD yesterday that showed evidence of Zenker diverticulum, as well as early Chesky ring and minimal gastritis, rectal examination was performed after obtaining consent from the patient under anesthesia and that showed visible hemorrhoids without evidence of thrombosis or bleeding at that time, patient was supposed to go for colonoscopy but we will hold off that until the patient passes through the code stroke. 10/23: Patient is sitting up in bed in no apparent distress, she is feeling a lot better today, she has no chest pain, or shortness of breath, she denies any abdominal pain, she underwent ultrasound the carotid did not show evidence of any hemodynamically significant stenosis, she was seen in consultation by ne urology, she is not going for any colonoscopy at this point in time, she does not have any blood in her stool at this point in time, continue current treatment plan, follow-up with the patient very closely, the plan subacute rehabilitation hopefully Friday meanwhile continue current treatment plan, I will increase her Lantus to 14 units at bedtime, add 4 units of NovoLog plus the sliding scale insulin to make her sugar better, follow-up with the patient very closely, physical therapy evaluation, likely the patient will require to go to subacute rehabilitation on Friday. 10/24: Patient is asking for more fluid I decrease her fluid restriction to 1500 cc every 24 hours, I will switch the patient to oral Lasix 60 mg orally twice every day, continue follow-up with the patient very closely, continue with Lantus at 14 units at bedtime which the patient had refused, continue with NovoLog 4 units before each meal along with a sliding scale which has refused as well, physical therapy evaluation, likely the patient will be able to be discharged to subacute rehabilitation tomorrow morning. Sodium today is down to the 127. 10/25: Patient is feeling better today, she is sitting up in her recliner, physical therapy evaluation today continue fluid restriction 1500 cc every 24 hours, patient will be given 1 dose of Samsca today 15 mg orally x 1, repeat the sodium tomorrow morning, await prior authorization for the patient to be transferred to [facility] on the [place], physical therapy as well as social work associate consultation appreciated, continue to monitor the patient very closely repeat labs tomorrow morning 10/26: Patient is sitting up in bed no apparent distress, she is doing a lot better today, her sodium is 128, she did receive 1 dose of Samsca yesterday, continues to have a Harding catheter in place, will discontinue Harding catheter, and will transfer the patient to [facility] in the think with the prior authorization is available, I will follow-up with the patient at [facility] tomorrow afternoon. REVIEW OF SYSTEMS: Constitutional: No documented fever, no chills, no night sweats. No weight change. Positive for weakness, fatigue or lethargy. No daytime sleepiness. HEENT: No headache. No blurred vision or double vision, no loss of vision. No loss of Hearing, no ringing in the ears, no dizziness. No nasal drainage or congestion. No epistaxis. No sore throat. Lungs: Positive for shortness of breath, occasional cough, no sputum production. No wheezing. Reports dyspnea with activity. Cardiovascular: No chest pain, positive for lower extremity edema. Positive for palpitations. negative for paroxysmal nocturnal dyspnea. Negative for orthopnea. No lightheadedness or dizziness. No syncopal episodes. Abdominal: Reports abdominal pain. No nausea, vomiting. No diarrhea. No constipation. Positive for bloody but no tarry stools reports loss of appetite. Genitourinary: Positive for dysuria, increased frequency, urgency. No urinary retention. Musculoskeletal: No myalgias. Positive muscle weakness, positive for gait dysfunction, no frequent falls. positive for back pain. No neck pain. Integumentary: No wounds, no lesions. No rash or pruritus. No unusual bruising. No change in hair or nails. Neurologic: No aphasia. No facial droop. No change in mentation. No head injury. No headache. No paralysis. positive for facial paresthesia. Psychiatric: positive for depression, positive for anxiety. No mood swings. Endocrine: abnormal blood sugars. positive for weight change. PHYSICAL EXAMINATION: General: 79 year old female sitting up in bed no apparent distress. HEENT: Head is atraumatic, normocephalic, pupils were equal round reactive to light and recommendation, extraocular muscle movement were intact, sclera nonicteric, conjunctivae were pale, mucous membranes of the mouth are somewhat dry. Neck: Supple, no JVP, normal carotid upstroke bilaterally, no lymphadenopathy. Chest: Decreased breath sounds at the bases, few rhonchi, minimal expiratory wheezes, no chest wall tenderness, no intercostal retractions. Heart: First heart sound is normal, second heart sound is normal there is BIANCA 2/6 located at the left sternal border. Abdomen: Soft, obese nontender, nondistended, positive bowel sounds. Extremities: There is +1 edema no calf tenderness DP +2 bilaterally. Neurologic examination: Patient is awake alert and oriented X3, cranial nerves II-12 appear grossly intact, muscle power were 4 out of 5 in upper extremities and 4 out of 5 in bilateral lower extremities, deep tendon reflexes normal bilaterally. ASSESSMENT AND PLAN: 1. Hypervolemic hyponatremia with decreased solute intake. Continue fluid restriction 1500 cc every 24 hours., increase protein intake, continue Lasix 60 mg orally twice every day, patient did receive 1 dose of Samsca 15 mg orally x 1, repeat the patient labs tomorrow morning. 2. Lower GI bleed likely related to hemorrhoidal bleed. Hemoglobin stable at 8.8, monitor the patient CBC over the next 24 hours, continue patient on Protonix 40 mg IV push every 24 hours transfuse for hemoglobin less than 7. EGD showed evidence of a single diverticulum as well as early Chesky ring and minimal gastritis rectal examination showed evidence of hemorrhoids without bleeding or thrombosis, there is no plan for colonoscopy as an inpatient. 3. Recurrent UTI with sepsis with Enterococcus faecium . on Azactam 1 g piggyback every 8 hours due to limitation due to multiple patient allergies. 4. Hypertension and hypertensive cardiovascular disease. we will continue with Atenolol 50 mg po bid, Clonidine 0.2 mg 1 tabs po at bedtime, Losartan 100 mg po daily, Amlodipine 5 mg orally daily and we will continue with BP monitoring. 5. Mixed hyperlipidemia. we will continue with low cholesterol diet and exercise and weight loss, patient is not taking any statin at this time, and she refused PCSK9 inhibitor keep LDL-c 55-70 6. Diabetes Mellitus type 2. we will continue with Lantus 14 units at bedtime al artie with SSI and we will add NovoLog 4 units before each meal 3 times every day, continue with Metformin 1000 mg po daily and Pioglitasone 30 mg po daily, BGM before each meal and at bedtime. 7. Obesity and obstructive sleep apnea and OHS. not able to tolerate CPAP. 8. Vitamin D deficiency. we will continue with vitamin d supplements 9. GERD with PUD. we will continue with Protonix 40 mg IVP daily. 10. Anxiety.we will continue with Xanax as needed. 11. Paroxysmal atrial fibrillation currently in sinus rhythm. Patient is not a candidate for anticoagulation because of recurrent GI bleed. Continue atenolol 50 mg orally twice every day monitor the patient symptoms very closely. 12. DVT Prophylaxis continue heparin 5000 units subcutaneously every 8 hours 13. GI Prophylaxis . we will continue with Pantoprazole 40 mg IV push daily. 14. Right-sided numbness post code stroke patient had a CT scan brain did not show evidence of acute abnormalities, patient refused to have a CT angiography of the neck and head neurology consultation on the carotid did not show evidence of acute abnormalities, echocardiogram showed normal LV function, with severe pulmonary hypertension 15. Guarded prognosis. 16. Physical therapy evaluation. 17. Awaiting prior authorization for the patient to be transferred to [facility]. Objective - Vital Signs Vital signs: Vital Signs Temp 97.4 F L 10/26/24 04:00 Pulse 55 L 10/26/24 09:14 Resp 16 10/26/24 09:14 BP 128/69 10/26/24 09:14 Pulse Ox 98 10/26/24 09:14 FiO2 Intake & Output 10/25/24 10/26/24 10/26/24 18:59 06:59 18:59 Intake Total 460 240 Output Total 400 400 Balance 60 -400 240 Weight 109.8 kg 111.5 kg Intake: IV 100 Aztreonam 2 gm In Sodium 100 Chloride 0.9% 100 ml @ 33 .3 mls/hr IVPB Q8H [facility] Rx #:[id number] Oral 360 240 Output: Urine 400 400 Other: Voiding Method Indwelling Catheter Indwelling Catheter Indwelling Catheter - Labs CBC & Chem 7: 10/26/24 05:40 10/26/24 05:40 Labs: Abnormal Lab Results - Last 24 Hours (Table) 10/25/24 10/25/24 10/25/24 Range/Units 11:41 16:31 19:53 RBC (4.10-5.20) 10*6/uL Hgb (12.0-15.0) g/dL Hct (37.2-46.3) % MCV (80.0-97.0) fL MCH (27.0-32.0) pg MCHC (32.0-37.0) g/dL Plt Count (140-440) 10*3/uL Immature Gran # (0.00-0.04) 10*3/uL Eosinophils # (0.04-0.35) 10*3/uL Basophils # (0.00-0.10) 10*3/uL Sodium (137-145) mmol/L Chloride (98-107) mmol/L BUN (7-17) mg/dL Glucose (74-99) mg/dL POC Glucose (mg/dL) 257 H 195 H 386 H (70-110) mg/dL Magnesium (1.6-2.3) mg/dL Alkaline Phosphatase (38-126) U/L Total Protein (6.3-8.2) g/dL Albumin (3.5-5.0) g/dL 10/26/24 10/26/24 10/26/24 Range/Units 05:40 05:40 06:01 RBC 3.24 L (4.10-5.20) 10*6/uL Hgb 7.9 L (12.0-15.0) g/dL Hct 25.9 L (37.2-46.3) % MCV 79.9 L (80.0-97.0) fL MCH 24.4 L (27.0-32.0) pg MCHC 30.5 L (32.0-37.0) g/dL Plt Count 460 H (140-440) 10*3/uL Immature Gran # 0.13 H (0.00-0.04) 10*3/uL Eosinophils # 0.38 H (0.04-0.35) 10*3/uL Basophils # 0.11 H (0.00-0.10) 10*3/uL Sodium 128 L (137-145) mmol/L Chloride 93 L (98-107) mmol/L BUN 37 H (7-17) mg/dL Glucose 161 H (74-99) mg/dL POC Glucose (mg/dL) 174 H (70-110) mg/dL Magnesium 1.5 L (1.6-2.3) mg/dL Alkaline Phosphatase 235 H (38-126) U/L Total Protein 6.2 L (6.3-8.2) g/dL Albumin 3.1 L (3.5-5.0) g/dL
[2024-10-26] MEDS: MAGNESIUM SULFATE-D5W PMX 1 GM in DEXTROSE/WATER 1 100ML.BAG IVPB SCH (11:05)
[2024-10-26 11:28] LABS: Glucose,Whole Blood 229 mg/dL (70-110)
--- NOTE | 2024-10-26 13:18 | P.DS ---
Providers Date of admission: 10/19/24 21:10 Expected date of discharge: 10/26/24 Attending physician: Latanya Sanchez Consults: 10/19/24 21:07 Consult Physician Routine Consulting Provider: Abhi Palencia Consult Reason/Comments: hypoNa Do you want consulting provider notified?: Yes 10/22/24 05:19 Consult Physician Routine Consulting Provider: Dayton Fung Consult Reason/Comments: Code stroke Do you want consulting provider notified?: Already Contacted Primary care physician: Latanya Sanchez Hospital Course: HISTORY OF PRESENT ILLNESS: This is a 79 year old female with a previous medical history significant for hypertension and hypertensive cardiovascular disease, hyperlipidemia, diabetes mellitus type 2, and diabetic polyneuropathy, GERD with duodenal ulcer, and obesity with obstructive sleep apnea, and obesity hypoventilation syndrome, chronic diastolic heart failure, patient was last hospitalized at [facility] 06/20/2024 after she was admitted for 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 and decreased solute intake, initially she was treated with IV diuretics, which led to hyponatremia that required treatment with hypertonic 3% saline along with tolvaptan and urea until her sodium went back to normal, patient was rehospitalized at [facility] August 13, 2024 for what appears to be asthma exacerbation as well as significant hyponatremia as well, a nd she was treated and she was sent home, she was supposed to see me in the office yesterday however she contacted my office stating that she is having rectal bleeding, her home care nurse stated that she is having hard time getting out of the toilet because of the bleeding, at the same time she is extremely weak beside her sodium was extremely low at the same time therefore the patient was directed to go to the emergency department, she was found to have an sodium of 123, she was also found to have urinary tract infection for which she was started on Azactam 1 g piggyback every 24 hours, as far as every GI bleed the patient refuses a rectal examination at this point in time, and she claimed that this is coming from her hemorrhoids her hemoglobin is around 8.8, her potassium was slightly elevated, because of that the patient was started on IV Protonix 40 mg IV push every 24 hours, along with Azactam 1 g piggyback every 8 hours, she was admitted to the hospital on fluid restriction, discontinued IV fluid, started on Lasix 60 mg IV push every 12 hours along with sodium chloride tablet 1 g orally twice every day serum osmolality, urine osmolarity, urine sodium as well as urine spot for protein and creatinine and uric acid and cortisol level was obtained. 10/21: Patient is sitting up in bed in no apparent distress, her sodium is up to 128, she continues to have swelling in both lower extremities, she was taken off sodium chloride tablets, continue Lasix 60 mg IV push every 12 hours, continue Protonix 40 mg IV push every 24 hours, she is scheduled to go for EGD with Dr. Wells, she will need to have a colonoscopy hopefully the next 24 hours, hemoglobin is down to 7.7, she does not appear to be hypertensive at this time, we will continue to follow-up with the patient very closely, she continues to tolerate her treatment very well. Continue fluid restriction to 1000 cc every 24 hours, her serum asthma level is normal at this time, we will follow-up with the patient very closely her prognosis very guarded, she her daughter was at the bedside she was updated about her current condition. 10/22: Patient developed to have a right-sided numbness a code stroke was called on the patient, patient refused to have an IV contrast, she did have a CT scan brain did not show evidence of acute abnormalities, the plan is to transfer the patient to [facility]. awaiting bed availability, neurology consultation is on board, will continue to follow-up with the patient very closely, patient underwent EGD yesterday that showed evidence of Zenker diverticulum, as well as early Chesky ring and minimal gastritis, rectal examination was performed after obtaining consent from the patient under anesthesia and that showed visible hemorrhoids without evidence of thrombosis or bleeding at that time, patient was supposed to go for colonoscopy but we will hold off that until the patient passes through the code stroke. 10/23: Patient is sitting up in bed in no apparent distress, she is feeling a lot better today, she has no chest pain, or shortness of breath, she denies any abdominal pain, she underwent ultrasound the carotid did not show evidence of any hemodynamically significant stenosis, she was seen in consultation by neurology, she is not going for any colonoscopy at this point in time, she does not have any blood in her stool at this point in time, continue current treatment plan, follow-up with the patient very closely, the plan subacute rehabilitation hopefully Friday meanwhile continue current treatment plan, I will increase her Lantus to 14 units at bedtime, add 4 units of NovoLog plus the sliding scale insulin to make her sugar better, follow-up with the patient very closely, physical therapy evaluation, likely the patient will require to go to subacute rehabilitation on Friday. 10/24: Patient is asking for more fluid I decrease her fluid restriction to 1500 cc every 24 hours, I will switch the patient to oral Lasix 60 mg orally twice every day, continue follow-up with the patient very closely, continue with Lantus at 14 units at bedtime which the patient had refused, continue with NovoLog 4 units before each meal along with a sliding scale which has refused as well, physical therapy evaluation, likely the patient will be able to be discharged to subacute rehabilitation tomorrow morning. Sodium today is down to the 127. 10/25: Patient is feeling better today, she is sitting up in her recliner, physical therapy evaluation today continue fluid restriction 1500 cc every 24 hours, patient will be given 1 dose of Samsca today 15 mg orally x 1, repeat the sodium tomorrow morning, await prior authorization for the patient to be transferred to [facility] on the [place], physical therapy as well as public health social worker consultation appreciated, continue to monitor the patient very closely repeat labs tomorrow morning 10/26: Patient is sitting up in bed no apparent distress, she is doing a lot better today, her sodium is 128, she did receive 1 dose of Samsca yesterday, continues to have a Harding catheter in place, will discontinue Harding catheter, and will transfer the patient to [facility] in the think with the prior authorization is available, I will follow-up with the patient at [facility] tomorrow afternoon. Discharge diagnosis: 1. Hypervolemic hyponatremia with decreased solute intake. 2. Lower GI bleed likely related to hemorrhoidal bleed. 3. Recurrent UTI with sepsis with Enterococcus faecium . 4. Hypertension and hypertensive cardiovascular disease. 5. Mixed hyperlipidemia. 6. Diabetes Mellitus type 2. 7. Obesity and obstructive sleep apnea and OHS. not able to tolerate CPAP. 8. Vitamin D deficiency. 9. GERD with PUD. 10. Anxiety. 11. Paroxysmal atrial fibrillation currently in sinus rhythm. 12. Right-sided numbness post code stroke patient had a CT scan brain did not show evidence of acute abnormalities, Patient Condition at Discharge: Fair Plan - Discharge Summary Discharge Rx Participant: No New Discharge Prescriptions: No Action Pioglitazone [Actos] 15 mg PO DAILY@0900 metFORMIN HCL [Glucophage] 1,000 mg PO BID@1399,2099 atenoloL [Tenormin] 50 mg PO BID@899,2099 Losartan Potassium 100 mg PO DAILY@09 amLODIPine [Norvasc] 5 mg PO DAILY@09 ALPRAZolam [Xanax] 0.125 mg PO BID@899,2099 Acetaminophen Tab [Tylenol] 500 mg PO TID@0900,1399,2099 Furosemide [Lasix] 40 mg PO BID@899,2099 Furosemide [Lasix] 20 mg PO BID@899,2099 Insulin Glargine,Hum.rec.anlog [Lantus Solostar Pen] 7 - 17 units SQ HS cloNIDine HCL [Catapres] 0.2 mg PO HS Sodium Chloride Tab 1 gm PO BID Loperamide [Imodium] 2 mg PO QID PRN PRN Reason: Diarrhea Magnesium 250 mg PO HS Discharge Medication List Pioglitazone [Actos] 15 mg PO DAILY@89903/11/16 [History] atenoloL [Tenormin] 50 mg PO BID@899,209903/11/16 [History] metFORMIN HCL [Glucophage] 1,000 mg PO BID@1399,209903/11/16 [History] ALPRAZolam [Xanax] 0.125 mg PO BID@0900,209908/05/22 [History] Acetaminophen Tab [Tylenol] 500 mg PO TID@0900,1399,209912/11/23 [History] Losartan Potassium 100 mg PO DAILY@0912/11/23 [History] amLODIPine [Norvasc] 5 mg PO DAILY@89912/11/23 [History] Furosemide [Lasix] 20 mg PO BID@899,209906/20/24 [History] Furosemide [Lasix] 40 mg PO BID@899,209906/20/24 [History] Insulin Glargine,Hum.rec.anlog [Lantus Solostar Pen] 7 - 17 units SQ HS 08/27/24 [History] Loperamide [Imodium] 2 mg PO QID PRN 10/19/24 [History] Magnesium 250 mg PO HS 10/19/24 [History] Sodium Chloride Tab 1 gm PO BID 10/19/24 [History] cloNIDine HCL [Catapres] 0.2 mg PO HS 10/19/24 [History] Follow up Appointment(s)/Referral(s): Latanya Sanchez MD [Primary Care Provider] - 1-2 days
[2024-10-26 15:22] VITALS: BP 154/80; PULSE 54
[2024-10-26 16:27] LABS: Glucose,Whole Blood 255 mg/dL (70-110)
== END 2024-10-26 17:40 | DRG 872 ==
LOC: EC 14:37 → 5NMEDONC 21:10 → 3SCARD 10-22 08:45
PROVIDERS: ADMIT Internal Medicine; ATTEND Internal Medicine
PROC: 0DB78ZX Excision of Stomach, Pylorus, Via Natural or Artificial Opening Endoscopic, Diagnostic (ICD-10-PCS; principal; 2024-10-21 14:50)
DX: A41.81 Sepsis due to Enterococcus (principal); E66.2 Morbid (severe) obesity with alveolar hypoventilation; I27.20 Pulmonary hypertension, unspecified; G45.9 Transient cerebral ischemic attack, unspecified; E87.1 Hypo-osmolality and hyponatremia; I11.0 Hypertensive heart disease with heart failure; K22.2 Esophageal obstruction; I48.0 Paroxysmal atrial fibrillation; E86.0 Dehydration; E11.42 Type 2 diabetes mellitus with diabetic polyneuropathy; D64.9 Anemia, unspecified; J45.909 Unspecified asthma, uncomplicated; K27.9 Peptic ulcer, site unspecified, unspecified as acute or chronic, without hemorrhage or perforation; I50.32 Chronic diastolic (congestive) heart failure; Z68.41 Body mass index [BMI] 40.0-44.9, adult; N39.0 Urinary tract infection, site not specified; Z79.4 Long term (current) use of insulin; E55.9 Vitamin D deficiency, unspecified; E78.2 Mixed hyperlipidemia; F41.9 Anxiety disorder, unspecified; K21.9 Gastro-esophageal reflux disease without esophagitis; K22.5 Diverticulum of esophagus, acquired; K64.4 Residual hemorrhoidal skin tags; J06.9 Acute upper respiratory infection, unspecified; K29.70 Gastritis, unspecified, without bleeding; Z53.20 Procedure and treatment not carried out because of patient's decision for unspecified reasons; Z79.84 Long term (current) use of oral hypoglycemic drugs; Z79.899 Other long term (current) drug therapy; Z71.3 Dietary counseling and surveillance; Z87.440 Personal history of urinary (tract) infections; Z86.73 Personal history of transient ischemic attack (TIA), and cerebral infarction without residual deficits; Z88.1 Allergy status to other antibiotic agents; Z88.5 Allergy status to narcotic agent; Z88.0 Allergy status to penicillin; Z88.8 Allergy status to other drugs, medicaments and biological substances; Z88.6 Allergy status to analgesic agent; Z91.040 Latex allergy status
CPT/HCPCS: 36415; 43239; 51702; 70450; 71045; 71046; 80048; 80053; 81001; 82533; 82570; 83036; 83605; 83735; 83880; 83930; 83935; 84100; 84156; 84295; 84300; 84484; 84550; 85025; 85610; 85730; 86850; 86900; 86901; 87077; 87086; 87186; 88305; 93005; 93306; 93880; 96361; 96365; 96375; 99285